=== PATIENT | male | born 1965 | race Caucasian/White ===

== ENCOUNTER → 2022-09-07 13:50 | Outpatient (BNVA) | payer MEDICAID, SELFPAY | PROVIDERS: Visit Provider Nurse Practitioner Family | DX: E11.9 Type 2 diabetes mellitus without complications (principal); I10 Essential (primary) hypertension | CPT/HCPCS: 80053; 80061; 82043; 83036; 84443; 85025 ==

== ENCOUNTER → 2023-04-27 11:01 | Outpatient (BNVA) | payer MEDICAID, SELFPAY | PROVIDERS: PCP Nurse Practitioner Family; Visit Provider Family Medicine | DX: C44.91 Basal cell carcinoma of skin, unspecified (principal); E11.9 Type 2 diabetes mellitus without complications; R19.4 Change in bowel habit | CPT/HCPCS: 83036; 87177; 87209 ==

== ENCOUNTER 2023-06-07 15:57 | Inpatient (IN) | payer MEDICAID, SELFPAY ==
[2023-06-07 16:13] VITALS: BP 160/100; RESP 18; TEMP 37.6; O2SAT 97
--- NOTE | 2023-06-07 16:19 | XRR_ITS ---
PROCEDURE INFORMATION: Exam: XR Right Foot Exam date and time: 06/07/2023 4:24 PM Age: 58 years old Clinical indication: Swelling, leg or foot; Additional info: Infection TECHNIQUE: Imaging protocol: Radiologic exam of the right foot. Views: 3 or more views. COMPARISON: No relevant prior studies available. FINDINGS: Bones/joints: Normal. Soft tissues: Soft tissue edema of the ankle. XR/XR foot RT min 3V* 20205 IMPRESSION: No acute abnormality.
--- NOTE | 2023-06-07 16:33 | ED_ITS ---
Documented by User: MIKE Gamboa 06/08/23 07:45 HPI - Extremity Problem General: Chief complaint: Extremity Injury, Lower Stated complaint: Infection Big Toe Time Seen by Provider: 06/07/23 16:04 History of Present Illness: Associated symptoms: Reports fever(s) (low grade- 99.7 upon arrival); Deny chest pain Review of Systems Const: Reports: fever(s) (low grade-99.7 upon arrival) and chills; Denies: body aches, fatigue or malaise Card: Denies: chest pain Resp: Denies: dyspnea GI: Denies: abdominal pain Musc: Reports: extremity pain (R great toe); Denies: neck pain, back pain, extremity swelling, joint pain or joint swelling Neuro: Reports: sensory changes (chronic LE diabetic neuropathy) COUNTS INCLUDE 234 BEDS AT THE [facility] ED PFSH: Medical History Basal cell carcinoma Blind duodenal loop syndrome BMI 27.0-27.9,adult Bowel habit changes Essential hypertension Impaired visual perception Surgical History History of bilateral cataract extraction left Family History Mother Stroke Diabetes Graves disease Arthritis Father No problems noted. Social History Smoking and tobacco status: never smoked Alcohol intake: current Alcohol intake frequency: holidays/special occasions only Alcohol type: wine Physical Exam Const: COMMON NORMALS: no acute distress, average body habitus, patient o riented x3, no limitations, alert and well nourished OTHER: low grade fevers Resp: COMMON NORMALS: normal respiratory effort and clear to auscultation bilaterally AUSCULTATION: clear to auscultation bilaterally Cardio: COMMON NORMALS: regular rate and regular rhythm RATE: regular rate RHYTHM: regular rhythm Extremity: GENERAL: Yes normal exam except as noted RIGHT LOWER EXTREMITY: Yes foot & digits OTHER: Patient has an extremely foul-smelling erythematous, edematous, necrotic right great toe with abscess formation involving the lateral aspect. There is surrounding cellulitis affecting the entire digit as well as the medial aspect of the dorsum of his foot. There is no lymphangitic streaking. Neuro: COMMON NORMALS: patient oriented x3, moves all extremities, no focal motor deficits and no sensory deficits noted SENSORIUM/ORIENTATION: Yes alert Course Consultations: Consultation #1: Dr. Multani-agrees with decision for hospitalization, IV antibiotics, and he will consult on patient Consultation #2: Dr. Barber-accepts patient for hospitalization Vital Signs: Vital signs: Vital Signs Temperature 98.6 F 06/08/23 03:26 Pulse Rate 82 06/08/23 05:10 Respiratory Rate 19 H 06/08/23 03:26 Blood Pressure 134/76 06/08/23 03:26 Pulse Oximetry 96 06/08/23 03:26 Oxygen Delivery Me thod Room Air 06/07/23 20:54 MDM - Extremity (Nontraumatic) Medical Decision Making Diabetic with gangrenous infection of right great toe with leukocytosis, low grade fever. 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 CRP >100. IV abx ordered. Foot xray ready by radiologist: NAD. Patient is a 58-year-old male who presents to ED today with a complaint of an infection to his right great toe that he began noticing a few days ago. He states the [place] recently [place]. On exam toe is extremely foul-smelling with gangrenous infection along with surrounding cellulitis. He arrives with a low-grade fever. White count is 15.9 with a significantly elevated CRP. XR of the foot was interpreted as normal. I spoke to Dr. Multani who graciously is going to consult on patient here in the emergency department with probable plan for OR tomorrow. Patient has been started on IV Vancomycin/Zosyn. Blood cultures obtained. I spoke to hospitalist Dr. Kerns who will admit. After Jerry will place admit orders. Lab Data 06/08/23 04:51 06/08/23 04:51 Radiology Impressions Foot X-Ray 06/07/23 16:19 IMPRESSION: No acute abnormality. Laboratory Results WBC 15.9 10^3/uL (4.0-10.0) H 06/07/23 16:27 RBC 3.25 10^6/uL (4.1-5.3) L 06/07/23 16:27 Hgb 9.6 g/dL (11.7-16.6) L 06/07/23 16:27 Hct 29.8 % (42.0-52.0) L 06/07/23 16:27 MCV 91.7 fl (80-94) 06/07/23 16:27 MCH 29.5 pg (28.0-34.0) 06/07/23 16: MCHC 32.2 g/dL (30.0-36.0) 06/07/23 16: RDW 12.9 % (12.1-15.1) 06/07/23 16:27 Plt Count 415 10^3/cmm (130-400) H 06/07/23 16:27 MPV 9.5 fL (7.4-10.4) 06/07/23 16: Neut % (Auto) 76.9 % 06/07/23 16:27 Lymph % (Auto) 12.6 % 06/07/23 16:27 Schley % (Auto) 7.2 % 06/07/23 16:27 Eos % (Auto) 1.9 % 06/07/23 16:27 Baso % (Auto) 0.6 % 06/07/23 16:27 Neut # (Auto) 12.27 10^3/uL (1.8-7.7) H 06/07/23 16:27 Lymph # (Auto) 2.0 10^3/uL (0.8-4.8) 06/07/23 16:27 Schley # (Auto) 1.1 10^3/uL (0.2-0.9) H 06/07/23 16:27 Eos # (Auto) 0.3 10^3/uL (0.0-0.8) 06/07/23 16:27 Baso # (Auto) 0.1 10^3/uL (0.0-0.1) 06/07/23 16: Nucleated RBC % (auto) 0 % 06/07/23 16: Nucleated RBCs # 0.0 /100WBC 06/07/23 16:27 ESR 19 mm/hr (0-10) H 06/07/23 16:27 Sodium 137 mmol/L (136-145) 06/07/23 16: Potassium 5.2 mmol/L (3.5-5.1) H 06/07/23 16:27 Chloride 99 mmol/L (98-107) 06/07/23 16:27 Carbon Dioxide 28 mmol/L (22-29) 06/07/23 16:27 Anion Gap 15.2 (5-19) 06/07/23 16:27 BUN 14 mg/dL (6-20) 06/07/23 16:27 Creatinine 1.1 mg/dL (0.7-1.2) 06/07/23 16:27 GFR Calculation 69.2 mL/min (90-130) L 06/07/23 16:27 Glucose 133 mg/dL (65-115) H 06/07/23 16:27 Calculated Osmolality 286 mOsm/kg (285-295) 06/07/23 16:27 Lactic Acid 0.8 mmol/L (0.5-2.2) 06/07/23 16:27 Calcium 8.5 mg/dL (8.5-10.5) 06/07/23 16:27 Iron 19 ug/dL (59-158) L 06/07/23 16:27 TIBC 232 mcg/dl 06/07/23 16:27 % Saturation 8.1 % (20-50) L 06/07/23 16:27 Unsat Iron Binding 213 ug/dL (112-347) 06/07/23 16:27 Total Bilirubin 0.2 mg/dL (0.15-1.2) 06/07/23 16:27 AST 24 U/L (0-40) 06/07/23 16:27 ALT 24 U/L (0-41) 06/07/23 16:27 Alkaline Phosphatase 116 U/L (40-130) 06/07/23 16:27 C-Reactive Protein 131.0 mg/L (0.0-4.9) H 06/07/23 16:27 Total Protein 6.6 g/dL (6.6-8.7) 06/07/23 16:27 Albumin 3.4 g/dL (3.5-5.2) L 06/07/23 16:27 Globulin 3.2 g/dL (1.3-4.6) 06/07/23 16:27 Vitamin B12 615 pg/mL (232-1245) 06/07/23 16:27 Procalcitonin 0.22 ng/mL (0-0.5) 06/07/23 16:27 TSH 1.31 uIU/mL (0.27-4.20) 06/07/23 16:27 Urine Color Light yellow (Yellow) 06/07/23 18:50 Urine Appearance Clear (CLEAR) 06/07/23 18:50 Urine pH 9 (5-7) H 06/07/23 18:50 Ur Specific [place] 1.015 (1.005-1.030) 06/07/23 18:50 Urine Protein 1+ (Negative) H 06/07/23 18:50 Urine Glucose (UA) Norm (Normal) 06/07/23 18:50 Urine Ketones Negative (Negative) 06/07/23 18:50 Urine Blood Neg (Negative) 06/07/23 18:50 Urine Nitrate Negative (Negative) 06/07/23 18:50 Urine Bilirubin Neg (Negative) 06/07/23 18:50 Prot Sulfosalicylic Acd Positive (Negative) 06/07/23 18:50 Urine Urobilinogen Neg mg/dL (Negative) 06/07/23 18:50 Ur Leukocyte Esterase Negative (Negative) 06/07/23 18:50 Urine RBC None /hpf (0-2) 06/07/23 18:50 Urine WBC None /hpf (0-5) 06/07/23 18:50 Ur Squamous Epith Cells None /hpf (0-5) 06/07/23 18:50 Amorphous Sediment Not Reportable 06/07/23 18:50 Urine Bacteria Trace /hpf (NONE) 06/07/23 18:50 Discharge Plan Discharge Patient Disposition: Admitted As Inpatient Admit Provider: Terence Novoa Clinical Impression: Gangrene of toe of right foot Condition: Stable Coding Level of Care Code 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 He has diabetes. He has recently been [place]. Pt has low grade fever on arrival. Associated symptoms: Reports rash Review of Systems General: Reports: 10 or more systems reviewed and unremarkable except in HPI and below Musc: Reports: extremity pain Skin/Breast: Reports: rash, erythema, skin swelling, sores, new lesions and changes in skin color PFSH ED PFSH: Medical History Basal cell carcinoma Blind duodenal loop syndrome BMI 27.0-27.9,adult Bowel habit changes Essential hypertension Impaired visual perception Surgical History History of bilateral cataract extraction left Family History Mother Stroke Diabetes Graves disease Arthritis Father No problems noted. Social History Smoking and tobacco status: never smoked Alcohol intake: current Alcohol intake frequency: holidays/special occasions on ly Alcohol type: wine Course Vital Signs: Vital signs: Vital Signs Temperature 98.6 F 06/08/23 03:26 Pulse Rate 82 06/08/23 05:10 Respiratory Rate 19 H 06/08/23 03:26 Blood Pressure 134/76 06/08/23 03:26 Pulse Oximetry 96 06/08/23 03:26 Oxygen Delivery Me thod Room Air 06/07/23 20:54 MDM - Extremity (Nontraumatic) Medical Decision Making Diabetic with gangrenous infection of right great toe with leukocytosis, low grade fever. 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 CRP >100. IV abx ordered. Foot xray ready by radiologist: RAJESH. Lab Data 06/08/23 04:51 06/08/23 04:51 Radiology Impressions Foot X-Ray 06/07/23 16:19 IMPRESSION: No acute abnormality. Laboratory Results WBC 15.9 10^3/uL (4.0-10.0) H 06/07/23 16:27 RBC 3.25 10^6/uL (4.1-5.3) L 06/07/23 16:27 Hgb 9.6 g/dL (11.7-16.6) L 06/07/23 16:27 Hct 29.8 % (42.0-52.0) L 06/07/23 16:27 MCV 91.7 fl (80-94) 06/07/23 16:27 MCH 29.5 pg (28.0-34.0) 06/07/23 16:27 MCHC 32.2 g/dL (30.0-36.0) 06/07/23 16:27 RDW 12.9 % (12.1-15.1) 06/07/23 16:27 Plt Count 415 10^3/cmm (130-400) H 06/07/23 16:27 MPV 9.5 fL (7.4-10.4) 06/07/23 16:27 Neut % (Auto) 76.9 % 06/07/23 16:27 Lymph % (Auto) 12.6 % 06/07/23 16:27 Schley % (Auto) 7.2 % 06/07/23 16:27 Eos % (Auto) 1.9 % 06/07/23 16:27 Baso % (Auto) 0.6 % 06/07/23 16:27 Neut # (Auto) 12.27 10^3/uL (1.8-7.7) H 06/07/23 16:27 Lymph # (Auto) 2.0 10^3/uL (0.8-4.8) 06/07/23 16:27 Schley # (Auto) 1.1 10^3/uL (0.2-0.9) H 06/07/23 16:27 Eos # (Auto) 0.3 10^3/uL (0.0-0.8) 06/07/23 16:27 Baso # (Auto) 0.1 10^3/uL (0.0-0.1) 06/07/23 16:27 Nucleated RBC % (auto) 0 % 06/07/23 16: Nucleated RBCs # 0.0 /100WBC 06/07/23 16:27 ESR 19 mm/hr (0-10) H 06/07/23 16:27 Sodium 137 mmol/L (136-145) 06/07/23 16:27 Potassium 5.2 mmol/L (3.5-5.1) H 06/07/23 16:27 Chloride 99 mmol/L (98-107) 06/07/23 16:27 Carbon Dioxide 28 mmol/L (22-29) 06/07/23 16:27 Anion Gap 15.2 (5-19) 06/07/23 16:27 BUN 14 mg/dL (6-20) 06/07/23 16:27 Creatinine 1.1 mg/dL (0.7-1.2) 06/07/23 16:27 GFR Calculation 69.2 mL/min (90-130) L 06/07/23 16:27 Glucose 133 mg/dL (65-115) H 06/07/23 16:27 Calculated Osmolality 286 mOsm/kg (285-295) 06/07/23 16:27 Lactic Acid 0.8 mmol/L (0.5-2.2) 06/07/23 16:27 Calcium 8.5 mg/dL (8.5-10.5) 06/07/23 16:27 Iron 19 ug/dL (59-158) L 06/07/23 16:27 TIBC 232 mcg/dl 06/07/23 16:27 % Saturation 8.1 % (20-50) L 06/07/23 16:27 Unsat Iron Binding 213 ug/dL (112-347) 06/07/23 16:27 Total Bilirubin 0.2 mg/dL (0.15-1.2) 06/07/23 16:27 AST 24 U/L (0-40) 06/07/23 16:27 ALT 24 U/L (0-41) 06/07/23 16:27 Alkaline Phosphatase 116 U/L (40-130) 06/07/23 16:27 C-Reactive Protein 131.0 mg/L (0.0-4.9) H 06/07/23 16:27 Total Protein 6.6 g/dL (6.6-8.7) 06/07/23 16:27 Albumin 3.4 g/dL (3.5-5.2) L 06/07/23 16:27 Globulin 3.2 g/dL (1.3-4.6) 06/07/23 16:27 Vitamin B12 615 pg/mL (232-1245) 06/07/23 16:27 Procalcitonin 0.22 ng/mL (0-0.5) 06/07/23 16:27 TSH 1.31 uIU/mL (0.27-4.20) 06/07/23 16:27 Urine Color Light yellow (Yellow) 06/07/23 18:50 Urine Appearance Clear (CLEAR) 06/07/23 18:50 Urine pH 9 (5-7) H 06/07/23 18:50 Ur Specific [place] 1.015 (1.005-1.030) 06/07/23 18:50 Urine Protein 1+ (Negative) H 06/07/23 18:50 Urine Glucose (UA) Norm (Normal) 06/07/23 18:50 Urine Ketones Negative (Negative) 06/07/23 18:50 Urine Blood Neg (Negative) 06/07/23 18:50 Urine Nitrate Negative (Negative) 06/07/23 18:50 Urine Bilirubin Neg (Negative) 06/07/23 18:50 Prot Sulfosalicylic Acd Positive (Negative) 06/07/23 18:50 Urine Urobilinogen Neg mg/dL (Negative) 06/07/23 18:50 Ur Leukocyte Esterase Negative (Negative) 06/07/23 18:50 Urine RBC None /hpf (0-2) 06/07/23 18:50 Urine WBC None /hpf (0-5) 06/07/23 18:50 Ur Squamous Epith Cells None /hpf (0-5) 06/07/23 18:50 Amorphous Sediment Not Reportable 06/07/23 18:50 Urine Bacteria Trace /hpf (NONE) 06/07/23 18:50 Discharge Plan Discharge Patient Disposition: Admitted As Inpatient Admit Provider: Terence Novoa Clinical Impression: Gangrene of toe of right foot Condition: Stable Coding Level of 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
[2023-06-07 16:43] LABS: Basophils # 0.1 10^3/uL (0.0-0.1); Basophils % 0.6 %; Eosinophils # 0.3 10^3/uL (0.0-0.8); Eosinophils % 1.9 %; Hematocrit 29.8 % (42.0-52.0); Hemoglobin 9.6 g/dL (11.7-16.6); Lymphocytes % 12.6 %; Mean Corpuscular HGB Conc 32.2 g/dL (30.0-36.0); Mean Corpuscular Hemoglobin 29.5 pg (28.0-34.0); Mean Corpuscular Volume 91.7 fl (80-94); Mean Platelet Volume 9.5 fL (7.4-10.4); Monocytes # 1.1 10^3/uL (0.2-0.9); Monocytes % 7.2 %; Neutrophils # 12.27 10^3/uL (1.8-7.7); Neutrophils % 76.9 %; Nucleated Red Blood Cells % 0 %; Platelet Count 415 10^3/cmm (130-400); Red Blood Count 3.25 10^6/uL (4.1-5.3); Red Cell Distribution Width 12.9 % (12.1-15.1); White Blood Count 15.9 10^3/uL (4.0-10.0)
[2023-06-07 16:51] LABS: Erythrocyte Sedimentation Rate 19 mm/hr (0-10)
[2023-06-07 16:57] LABS: Lactic Sepsis W/Reflex 0.8 mmol/L (0.5-2.2)
[2023-06-07 16:58] LABS: Alanine Aminotransferase 24 U/L (0-41); Albumin Level 3.4 g/dL (3.5-5.2); Alkaline Phosphatase 116 U/L (40-130); Anion Gap 15.2 (5-19); Aspartate Amino Transferase 24 U/L (0-40); Blood Urea Nitrogen 14 mg/dL (6-20); Calcium 8.5 mg/dL (8.5-10.5); Carbon Dioxide 28 mmol/L (22-29); Chloride 99 mmol/L (98-107); Globulin 3.2 g/dL (1.3-4.6); Glomerular Filtration Rate 69.2 mL/min (90-130); Glucose 133 mg/dL (65-115); Osmolality Calculated 286 mOsm/kg (285-295); Potassium 5.2 mmol/L (3.5-5.1); Sodium 137 mmol/L (136-145); Total Bilirubin 0.2 mg/dL (0.15-1.2); Total Protein 6.6 g/dL (6.6-8.7)
[2023-06-07] MEDS: piperacillin-tazobactam 3.375 GM in sodium chloride 0.9% (plus) 50 ML IV ×2 (17:18→22:29)
--- NOTE | 2023-06-07 17:24 | P.HP_ITS ---
Providers/Chief Complaint Primary Care Provider: Sagrario Diaz NP Chief Complaint: Infection Big Toe History of Present Illness Joseph Baker is a 58 year old male with past medical history of hypertension, type 2 diabetes mellitus was sent in through the primary care's office because of swelling and pain in the right foot for last 1 week to 10 days mostly in the right great toe. Patient thinks it infection started when he was [place] that time and has been getting worse. He has been using castor oil at home. Nail came off yesterday. As the pain was getting worse and the toe was turning black he presented to the ER. Patient has been having subjective low- grade fever fevers at home. Denies any nausea vomiting, headache, dizziness. In the ER patient was given 1 dose of vancomycin and Zosyn after blood cultures were taken, foot x-ray was done and podiatry was consulted from the ER Review of Systems General: Reports: 10 or more systems reviewed and unremarkable except in HPI and below Const: Denies: fever(s), chills, body aches, change in appetite, change in weight, malaise, night sweats, diaphoresis, change in sleep pattern, daytime sleepiness or snoring Eyes: Denies: change in vision, blurry vision, photophobia, eye discomfort or eye discharge ENMT: Denies: throat pain, enlarged tonsils, hoarseness, mouth pain, oral sores, dry mouth, tinnitus, nasal congestion or post nasal drip Card: Denies: chest pain, palpitations, irregular heart rhythm, edema, swelling of feet/ankles, lightheadedness, syncope, pre-syncope, dyspnea on exertion, orthopnea, leg pain with exertion or acrocyanosis Resp: Denies: dyspnea, productive cough, non-productive cough, wheezing, stridor, pain on inspiration, change in phlegm color, hemoptysis or chest congestion GI: Denies: abdominal pain, nausea, vomiting, hematemesis, coffee ground emesis, dysphagia, heartburn, diarrhea, constipation, bloating, GI cramping, change in bowel habits, pain on defecation, hematochezia or melena : Denies: flank pain, difficulty urinating, dysuria, urinary frequency, urinary urgency, urinary hesitancy, urinary dribbling, difficulty starting urination, change in urine stream, nocturia or hematuria Musc: Denies: neck pain, back pain, extremity pain, joint pain, joint swelling, joint redness, joint stiffness or limited range of motion Neuro: Denies: headache(s), numbness in extremities, weakness in extremities, sensory changes, lack of coordination, difficulty walking, frequent falls, dizziness, vertigo, confusion, Slurred speech present, difficulty communicating thoughts or seizure-like activity Psych: Denies: anxiety, depression, mood swings, panic attacks, hopelessness or irritability Endo: Denies: polyuria, polydipsia, tired all the time, cold intolerance, excessive sweating, flushing or heat intolerance Rafael/Lymph: Denies: easy bruising or easy bleeding All/Imm: Denies: tongue swelling, facial swelling or acute wheezing Medications/Allergies Home Medications Medication Instructions Recorded Confirmed Last Taken Type blood sugar diagnostic (Blood #300 ea 09/15/22 06/08/23 Unknown Rx Glucose Test strips) blood-glucose meter (Blood Glucose #1 ea 09/15/22 06/08/23 Unknown Rx Monitoring kit) lisinopril 40 mg tablet 40 mg PO DAILY #90 tabs 02/23/23 06/08/23 Unknown Rx metformin 1,000 mg tablet 1,000 mg PO BID #180 tabs 02/23/23 06/08/23 Unknown Rx glyburide 5 mg tablet 10 mg PO DAILY #180 tabs 02/24/23 06/08/23 Unknown Rx atorvastatin 40 mg tablet 40 mg PO DAILY #90 tabs 04/27/23 06/08/23 Unknown Rx ferrous sulfate 325 mg (65 mg 325 mg PO DAILY #30 tabs 04/27/23 06/08/23 Unknown Rx iron) tablet flash glucose scanning reader #1 ea 04/27/23 06/08/23 Unknown Rx (FreeStyle Kee 2 Wood) flash glucose sensor (FreeStyle #1 ea 04/27/23 06/08/23 Unknown Rx Kee 2 Sensor kit) lancets 30 gauge #300 ea 04/27/23 06/08/23 Unknown Rx insulin glargine 100 unit/mL (3 24 unit SUBCUT .QAM 06/08/23 06/08/23 Unknown History mL) subcutaneous pen (Lantus Solostar U-100 Insulin) triamterene 37.5 1 cap PO QDAY 06/08/23 06/08/23 Unknown History mg-hydrochlorothiazide 25 mg capsule Allergies Allergy/AdvReac Type Severity Reaction Status Date / Time No Known Allergies Allergy Unverified 06/07/23 10:04 PFSH Acute PFSH: Medical History Basal cell carcinoma Blind duodenal loop syndrome BMI 27.0-27.9,adult Bowel habit changes Essential hypertension Impaired visual perception Surgical History (Reviewed 06/08/23 @ 07: by MIKE Gamboa) History of bilateral cataract extraction left Family History Mother Stroke Diabetes Graves disease Arthritis Father No problems noted. Social History (Reviewed 06/08/23 @ 07: by MIKE Gamboa) Smoking and tobacco status: never smoked Alcohol intake: current Alcohol intake frequency: holidays/special occasions only Alcohol type: wine Vitals/I&O/Wt Last Vital Signs Temp 99.7 F H 06/07/23 16:13 Resp 18 06/07/23 16:13 BP 160/100 06/07/23 16:13 Pulse Ox 97 06/07/23 16:13 O2 Del Method Room Air 06/07/23 16:13 Weight last 48 hrs Weight 79.379 kg Physical Exam Narrative: General: No acute distress, AO x3 HEENT: PERRLA, pupils bilaterally equal and reactive Chest: Normal vesicular breath sounds, no added sounds, equal good air entry bilaterally CVS: S1-S2 regular, no murmurs, no tachycardia, no gallops, no rubs Abdomen: Soft, nontender, no organomegaly, bowel sounds present Neuro: No focal deficits, no facial deformity, AO x3, power 5/5 in all limbs Data 06/08/23 04:51 06/08/23 04:51 Micro: Microbiology 06/07/23 16:57 Blood Culture - Preliminary Blood SPECIMEN COLLECTED 06/07/23 16:57 Blood Culture - Preliminary Blood SPECIMEN COLLECTED A&P Assessment and plan (1) Gangrene of toe of right foot: With concerns for osteomyelitis. X-ray done in the ER. Podiatry consulted in the ER. Elevated ESR and CRP. Blood cultures done in the ER. MRI right foot. Empiric vancomycin and Zosyn for now. Follow-up OR cultures. Morphine 1 mg 4 hours as needed for pain, tramadol 50 mg every 6 hourly as needed for pain. (2) Type 2 diabetes mellitus: Recent A1c 6.7. Insulin sliding scale at moderate dose protocol. (3) Essential hypertension: Goal blood pressure less than 140/90 mmHg. Takes lisinopril, triamterene and hydrochlorothiazide at home. Hold off on triamterene hydrochlorothiazide combination for now. Continue with lisinopril. Uptitrate as for goal blood pressures. Plan Cardiac carb consistent diet, n.p.o. after midnight for possible procedure. SCDs for DVT prophylaxis Famotidine for PUD prophylaxis. Attestations Medical Necessity Statement*: Admission for more than 2 midnights for management of cellulitis of right great toe with high concerns for osteomyelitis requiring surgical debridement Diagnoses Gangrene of toe of right foot I96 Type 2 diabetes mellitus E11.9 Essential hypertension I10
[2023-06-07] MEDS: vancomycin 1,000 MG in sodium chloride 0.9% 250 ML 250 MG IV (17:54)
[2023-06-07] MEDS: enoxaparin 40 mg/0.4 mL Syringe SUBCUT (18:06)
[2023-06-07 18:14] LABS: Procalcitonin 0.22 ng/mL (0-0.5); Thyroid Stimulating Hormone 1.31 uIU/mL (0.27-4.20); Vitamin B12 615 pg/mL (232-1245)
[2023-06-07 18:25] LABS: Iron 19 ug/dL (59-158); Percent Saturation 8.1 % (20-50); Total Iron Binding Capacity 232 mcg/dl; Unsaturated Iron Binding 213 ug/dL (112-347)
[2023-06-07 19:37] VITALS: BP 155/87; PULSE 85; RESP 16; O2SAT 99
[2023-06-07 19:45] VITALS: BP 181/102; PULSE 86; RESP 17; TEMP 37.6; O2SAT 99
[2023-06-07] MEDS: sodium chloride 0.9% 1,000 ML 75 ML IV (20:23)
[2023-06-07 20:33] LABS: Add Urine Microscopic? YES; Bilirubin Urine Neg (Negative); Blood Urine Neg (Negative); Glucose Urine UA Norm (Normal); Ketones Urine Negative (Negative); Leukocyte Esterase Urine Negative (Negative); Nitrate Urine Negative (Negative); Protein Urine 1+ (Negative); Specific Gravity, Urine 1.015 (1.005-1.030); Sulfosalicylic Acid Urine Positive (Negative); Urine Appearance Clear (CLEAR); Urine Color Light yellow (Yellow); Urobilinogen Urine Neg (Negative); pH Urine 9 (5-7)
[2023-06-07 20:34] LABS: Add Urine Culture? No; Bacteria Urine TRACE /hpf
--- NOTE | 2023-06-07 20:34 | PC.PHAR ---
[id number] VANC - Pt diagnosis gangrene with concern for osteo. Pt received 1,000 mg in er. Ordered 500 mg catch up dose then 1,500 mg q18h. Trough due before 4th dose 06/09 - 2299
[2023-06-07] MEDS: vancomycin 500 MG in sodium chloride 0.9% (plus) 100 ML 200 MG IV (20:43)
--- NOTE | 2023-06-07 21:19 | P.CONIM_ITS ---
Providers/Reason For Consult Consulting Physician/Specialty*: cR Angeles.P.M./podiatry Reason for Consult*: Right hallux gangrene Attending Physician: Terence Novoa MD Primary Care Provider: Sagrario Diaz NP History of Present Illness History of Present Illness Joseph Baker is a 58 year old male with history of type 2 diabetes who presented to the emergency department today after being evaluated by his primary care provider earlier today. According to the patient he has had a wound on the right great toe for the past couple weeks. Patient states that over the course the past 3 days it has significantly worsened and changed in color. It has become odorous and he has began to have systemic manifestations such as fever, chills, nausea. Patient states he has been using castor oil at home to try and treat the area. He states that he was not in his right mind so he began taking his salt which brought him to his normal faculties to the point that he brought himself to be evaluated. Podiatry was consulted to evaluate the patient and to provide further recommendations for treatment. Patient has not been established with a podiatric provider up to this point. Review of Systems General: Reports: 10 or more systems reviewed and unremarkable except in HPI and below Const: Denies: fever(s), chills, body aches or change in appetite Eyes: Denies: change in vision or blurry vision Card: Denies: chest pain, palpitations or irregular heart rhythm Resp: Denies: dyspnea GI: Denies: abdominal pain, nausea, vomiting or diarrhea Musc: Reports: joint stiffness Skin/Breast: Reports: non-healing lesions and lesions Neuro: Reports: numbness in extremities Medications/Allergies Home Medications Medication Instructions Recorded Confirmed Last Taken Type blood sugar diagnostic (Blood #300 ea 09/15/22 06/07/23 Unknown Rx Glucose Test strips) blood-glucose meter (Blood Glucose #1 ea 09/15/22 06/07/23 Unknown Rx Monitoring kit) lisinopril 40 mg tablet 40 mg PO DAILY #90 tabs 02/23/23 06/07/23 Unknown Rx metformin 1,000 mg tablet 1,000 mg PO BID #180 tabs 02/23/23 06/07/23 Unknown Rx glyburide 5 mg tablet 10 mg PO DAILY #180 tabs 02/24/23 06/07/23 Unknown Rx atorvastatin 40 mg tablet 40 mg PO DAILY #90 tabs 04/27/23 06/07/23 Unknown Rx ferrous sulfate 325 mg (65 mg 325 mg PO DAILY #30 tabs 04/27/23 06/07/23 Unknown Rx iron) tablet flash glucose scanning reader #1 ea 04/27/23 06/07/23 Unknown Rx (FreeStyle Kee 2 [place]) flash glucose sensor (FreeStyle #1 ea 04/27/23 06/07/23 Unknown Rx Kee 2 Sensor kit) insulin glargine 100 unit/mL (3 24 unit (0.24 mL) SUBCUT QAM #15 mL 04/27/23 06/07/23 Unknown Rx mL) subcutaneous pen (Basaglar KwikPen U-100 Insulin) lancets 30 gauge #300 ea 04/27/23 06/07/23 Unknown Rx triamterene 37.5 See Rx Instructions PO QDAY #90 05/11/23 06/07/23 Unknown Rx mg-hydrochlorothiazide 25 mg caps capsule Allergies Allergy/AdvReac Type Severity Reaction Status Date / Time No Known Allergies Allergy Unverified 06/07/23 10:04 Current Medications Generic Name Dose Route Start Last Admin Trade Name Freq PRN Reason Stop Dose Admin Sodium Chloride 1,000 mls @ 75 mls/hr 06/07/23 19:22 06/07/23 20:23 Sodium Chloride 0.9% IV 75 mls/hr .[id number] EVELIO Administration PFSH Acute PFSH: Medical History (Updated 06/07/23 @ 17:27 by Terence Novoa MD) Basal cell carcinoma Blind duodenal loop syndrome BMI 27.0-27.9,adult Bowel habit changes Essential hypertension Impaired visual perception Surgical History (Updated 06/07/23 @ 17:27 by Terence Novoa MD) History of bilateral cataract extraction left Family History Mother Stroke Diabetes Graves disease Arthritis Father No problems noted. Social History Smoking and tobacco status: never smoked Alcohol intake: current Alcohol intake frequency: holidays/special occasions only Alcohol type: wine Vitals/I&O/Wt Last Vital Signs Temp 99.6 F 06/07/23 19:45 Pulse 86 06/07/23 19:45 Resp 17 06/07/23 19:45 BP 181/102 06/07/23 19:45 Pulse Ox 99 06/07/23 19:45 O2 Del Method Room Air 06/07/23 20:54 06/07/23 06/07/23 06/07/23 06:59 14:59 22:59 Intake Total 300 / 300 Balance 300 / 300 Weight last 48 hrs Weight 175 lb Physical Exam Narrative: BELOW IS A FOCUSED LOWER EXTREMITY EXAM GENERAL: A&O x 3 VASCULAR: DP/PT pulses diminished +1 with delayed CFT. Marked edema to right foot stemming from right hallux infection DERMATOLOGICAL: Right hallux erythematous with black necrotic Distally extending proximally into the subungual region with surrounding cellulitis active purulent drainage and necrosis extending along the lateral aspect of the hallux with hemorrhagic manifestations of bacterial endotoxin soft tissue damage and maceration. Plantar right hallux has hyperkeratotic tissue overlying ulcerative lesion. Erythema extends proximally to enveloped the adjacent metatarsophalangeal joints to the level of the metatarsal necks. The hallux is malodorous. MUSCULOSKELETAL: Tenderness with palpation of right hallux NEUROLOGICAL: Neurological sensation to the affected foot and ankle is diminished through L4-S1 dermatomes via 10g SWMF, diminished sensation extends proximally to the level of the midfoot IMAGING: Three-view x-rays of the right foot taken in the emergency department personally interpreted by me which show increase soft tissue density about the hallux. No subcutaneous emphysema noted. No pathologic fractures Data 06/07/23 16:27 06/07/23 16:27 Micro: Microbiology 06/07/23 16:57 Blood Culture - Preliminary Blood SPECIMEN COLLECTED 06/07/23 16:57 Blood Culture - Preliminary Blood SPECIMEN COLLECTED A&P Assessment and plan (1) Gangrene of toe of right foot: (2) Gangrene associated with type II diabetes mellitus: (3) Type 2 diabetes mellitus: Plan LABS AND CLINICAL INFO: WBC 15.9 ESR 19 CRP 131 T99.7 RR 18 HR 86 ABX: Vanco/Zosyn Blood cultures: Pending PLAN: -N.p.o. at midnight for procedure tomorrow 06/08/2023 -Patient to undergo right hallux amputation tomorrow a.m. Discussed with the patient that he has wet gangrene to the right hallux which is causing systemic manifestations such as fever, chills, nausea. Patient is at risk of the infection spreading more proximally which would ultimately lead to a more exten sive incision and debridement and possible amputation. Right hallux amputation this for source control. Patient verbalized understanding to this. -Continue empiric antibiotics -Trend labs -Weightbearing: Weightbearing to right foot for transfers only -Discharge plan: To be determined. Intraoperative findings will determine IV versus p.o. antibiotic therapy. I will discuss this with hospitalist after surgery tomorrow Coding Level of Care Code Acute Code for [facility] Diagnoses Gangrene of toe of right foot I96 Gangrene associated with type II diabetes mellitus E11.52 Type 2 diabetes mellitus E11.9
[2023-06-07 21:30] LABS: Glucose Point of Care 119 mg/dL (70-110)
[2023-06-07 22:00] VITALS: PULSE 80
[2023-06-07 23:57] VITALS: BP 130/75; PULSE 85; RESP 18; TEMP 36.7; O2SAT 95
[2023-06-08] VITALS (16 sets, daily range): BP systolic 117–190; BP diastolic 44–99; PULSE 74–113; RESP 14–20; TEMP 36.1–37; O2SAT 93–100; BMI 31.7
[2023-06-08] MEDS: piperacillin-tazobactam 3.375 GM in sodium chloride 0.9% (plus) 50 ML IV ×3 (05:35→21:46)
[2023-06-08 05:52] LABS: Basophils # 0.1 10^3/uL (0.0-0.1); Eosinophils # 0.5 10^3/uL (0.0-0.8); Eosinophils % 3.2 %; Hematocrit 26.7 % (42.0-52.0); Hemoglobin 8.7 g/dL (11.7-16.6); Lymphocytes # 2.8 10^3/uL (0.8-4.8); Lymphocytes % 19.8 %; Mean Corpuscular HGB Conc 32.6 g/dL (30.0-36.0); Mean Corpuscular Hemoglobin 30.1 pg (28.0-34.0); Mean Corpuscular Volume 92.4 fl (80-94); Mean Platelet Volume 9.8 fL (7.4-10.4); Monocytes # 1.1 10^3/uL (0.2-0.9); Monocytes % 7.9 %; Neutrophils # 9.49 10^3/uL (1.8-7.7); Neutrophils % 67.1 %; Nucleated Red Blood Cells % 0 %; Platelet Count 419 10^3/cmm (130-400); Red Blood Count 2.89 10^6/uL (4.1-5.3); Red Cell Distribution Width 12.9 % (12.1-15.1); White Blood Count 14.1 10^3/uL (4.0-10.0)
[2023-06-08 06:13] LABS: Chol HDL Ratio 7.04 mg/dL (1.0-5.00); Cholesterol 162 mg/dL (0-200); HDL Cholesterol 23 mg/dL (60-100); LDL Cholesterol Calculated 104 mg/dL (50-129); LDL HDL Ratio 4.52 RATIO (0.00-3.22); Triglycerides 173 mg/dL (0-150)
[2023-06-08 06:15] LABS: Alanine Aminotransferase 19 U/L (0-41); Alkaline Phosphatase 111 U/L (40-130); Anion Gap 13.5 (5-19); Aspartate Amino Transferase 25 U/L (0-40); Blood Urea Nitrogen 12 mg/dL (6-20); Carbon Dioxide 27 mmol/L (22-29); Chloride 100 mmol/L (98-107); Globulin 3.6 g/dL (1.3-4.6); Glomerular Filtration Rate 69.2 mL/min (90-130); Glucose 159 mg/dL (65-115); Magnesium 2.1 mg/dL (1.7-2.3); Osmolality Calculated 285 mOsm/kg (285-295); Phosphorus 3.6 mg/dL (2.5-4.5); Potassium 4.5 mmol/L (3.5-5.1); Sodium 136 mmol/L (136-145); Total Bilirubin 0.2 mg/dL (0.15-1.2); Total Protein 6.6 g/dL (6.6-8.7)
[2023-06-08 06:28] LABS: Folate Level 12.7 ng/mL (4.5-32.2)
[2023-06-08 06:32] LABS: Estmated Average Glucose 154
[2023-06-08 06:51] LABS: Glucose Point of Care 152 mg/dL (70-110)
--- NOTE | 2023-06-08 07:00 | MR_ITS ---
WS: [id number] MRI RIGHT FOOT WITHOUT CONTRAST. COMPARISON: Radiographs 06/07/2023 Multiplanar, multisequence imaging is performed without contrast. There is a large amount of soft tissue edema surrounding the first phalanx. There is edema within the head of the first proximal phalanx and throughout the entire distal phalanx. There is soft tissue ed ronaldo which extends predominantly along the plantar surface but also circumferentially around the first toe. Edema extends from the subcutaneous soft tissue to the cortex and centered at the IP joint. [place] of the normal cortex of the distal phalanx. There is no focal well-formed clue collection. No addit ional abnormalities. IMPRESSION: 1. Extensive soft tissue edema surrounding the first toe. Edema extends circumferentially around the first toe. 2. Marrow edema with loss of the normal cortex involving the distal phalanx. 3. No soft tissue abscess. Cannot exclude osteomyelitis without IV contrast.
--- NOTE | 2023-06-08 08:04 | P.ANESASSM_ITS ---
Pre-Anesthetic Assessment Height/Weight: Height 1.63 m Weight 79.379 kg Temp Pulse Resp BP Pulse Ox O2 Del Method 98.6 F 82 19 H 134/76 96 Room Air 06/08/23 03:06/08/23 05:10 06/08/23 03:06/08/23 03:06/08/23 03:06/07/23 20:54 Operation Date: 06/08/23 08:05 Proposed Procedures p Amputation Toe/s Hallux Amputation(Right) - Jamil Multani DPM Familial anesthetic complications: None Was Beta Ari taken within 24 hours: N/A Was Clonidine taken within 24 hours: N/A Last intake: Intake Last Liquid Date 06/07/23 Last Liquid Time 21:00 Last Solid Date 06/07/23 Last Solid Time 21:00 Social No alcohol and No tobacco Exam alert, oriented x 3, clear to auscultation bilaterally and regular rate & rhythm Airway Mallampati: Class II Dentition: full CV/HEM Hypertension Metabolic Diabetes Mellitus and Hyperlipidemia Anesthetic Plan ASA status: 3 Anesthesia: Choice Other: Patient prefers MAC since he has little sensation in foot Risk of > 500 ml blood loss (7ml/kg in children): No Medications/Allergies Home Medications Medication Instructions Recorded Confirmed Last Taken Type blood sugar diagnostic (Blood #300 09/15/22 06/07/23 Unknown Rx Glucose Test strips) blood-glucose meter (Blood Glucose #1 09/15/22 06/07/23 Unknown Rx Monitoring kit) lisinopril 40 mg tablet 40 mg PO DAILY #90 tabs 02/23/23 06/07/23 Unknown Rx metformin 1,000 mg tablet 1,000 mg PO BID #180 tabs 02/23/23 06/07/23 Unknown Rx glyburide 5 mg tablet 10 mg PO DAILY #180 tabs 02/24/23 06/07/23 Unknown Rx atorvastatin 40 mg tablet 40 mg PO DAILY #90 tabs 04/27/23 06/07/23 Unknown Rx ferrous sulfate 325 mg (65 mg 325 mg PO DAILY #30 tabs 04/27/23 06/07/23 Unknown Rx iron) tablet flash glucose scanning reader #1 04/27/23 06/07/23 Unknown Rx (FreeStyle Kee 2 [place]) flash glucose sensor (FreeStyle #1 04/27/23 06/07/23 Unknown Rx Kee 2 Sensor kit) insulin glargine 100 unit/mL (3 24 unit (0.24 mL) SUBCUT QAM #15 mL 04/27/23 06/07/23 Unknown Rx mL) subcutaneous pen (Basaglar KwikPen U-100 Insulin) lancets 30 gauge #300 ea 04/27/23 06/07/23 Unknown Rx triamterene 37.5 See Rx Instructions PO QDAY #90 05/11/23 06/07/23 Unknown Rx mg-hydrochlorothiazide 25 mg caps capsule Allergies Allergy/AdvReac Type Severity Reaction Status Date / Time No Known Allergies Allergy Unverified 06/07/23 10:04 Current Medications Generic Name Dose Route Start Last Admin Trade Name Freq PRN Reason Stop Dose Admin Piperacillin Sod/Tazobactam 50 mls @ 12.5 mls/hr 06/07/23 22:30 06/08/23 05:35 Sod 3.375 gm/ Sodium Chloride IV 12.5 mls/hr Q8H EVELIO Administration Sodium Chloride 1,000 mls @ 75 mls/hr 06/07/23 19:22 06/07/23 20:23 Sodium Chloride 0.9% IV 75 mls/hr .[id number] EVELIO Administration Insulin Glargine 24 unit 06/08/23 06:00 06/08/23 05:35 Insulin Glargine 100 Units/1 Ml SUBCUT Not Given QAM EVELIO Insulin Human Lispro 0 unit 06/07/23 19:22 06/07/23 21:26 Insulin Lispro 100 Unit/1 Ml SUBCUT Not Given WM&BEDTIME EVELIO Protocol [facility] Anesthesia Medical History Basal cell carcinoma Blind duodenal loop syndrome BMI 27.0-27.9,adult Bowel habit changes Essential hypertension Impaired visual perception Surgical History History of bilateral cataract extraction left Family History Mother Stroke Diabetes Graves disease Arthritis Father No problems noted. Social History Smoking and tobacco status: never smoked Alcohol intake: current Alcohol intake frequency: holidays/special occasions only Alcohol type: wine Data Anesthesia 06/08/23 04:51 06/08/23 04:51 Short CBC 06/07/23 06/08/23 Range/Units 16:27 04:51 WBC 15.9 H 14.1 H (4.0-10.0) 10^3/uL Hgb 9.6 L 8.7 L (11.7-16.6) g/dL Hct 29.8 L 26.7 L (42.0-52.0) % MCV 91.7 92.4 (80-94) fl Plt Count 415 H 419 H (130-400) 10^3/cmm Neut % (Auto) 76.9 67.1 % Neut # (Auto) 12.27 H 9.49 H (1.8-7.7) 10^3/uL BMP 06/07/23 06/08/23 16:27 04:51 Sodium 137 136 Potassium 5.2 H 4.5 Chloride 99 100 Carbon Dioxide 28 27 BUN 14 12 Creatinine 1.1 1.1 Glucose 133 H 159 H Calcium 8.5 8.0 L Liver Function 06/07/23 06/08/23 Range/Units 16:27 04:51 Total Bilirubin 0.2 0.2 (0.15-1.2) mg/dL AST 24 25 (0-40) U/L ALT 24 19 (0-41) U/L Alkaline Phosphatase 116 111 (40-130) U/L Albumin 3.4 L 3.0 L (3.5-5.2) g/dL Urine 06/07/23 Range/Units 18:50 Urine Color Light yellow (Yellow) Urine Appearance Clear (CLEAR) Urine pH 9 H (5-7) Ur Specific [place] 1.015 (1.005-1.030) Urine Protein 1+ H (Negative) Urine Glucose (UA) Norm (Normal) Urine Ketones Negative (Negative) Urine Nitrate Negative (Negative) Urine Bilirubin Neg (Negative) Ur Leukocyte Esterase Negative (Negative) Urine RBC None (0-2) /hpf Urine WBC None (0-5) /hpf Coags 06/07/23 06/07/23 16:27 16:27 ESR 19 H C-Reactive Protein 131.0 H Microbiology 06/07/23 16:57 Blood Culture - Preliminary Blood SPECIMEN COLLECTED 06/07/23 16:57 Blood Culture - Preliminary Blood SPECIMEN COLLECTED Cardiac Studies: No Data to Display
--- NOTE | 2023-06-08 08:08 | W.PM.OPSUD ---
Surgery/Procedure H&P Update DATE OF PROCEDURE: June 08, 2023 DATE H&P PERFORMED: 06/07/23 CHANGES TO PREVIOUS DOCUMENTATION: No changes PLANNED PROCEDURE: Operation Date: 06/08/23 08:05 Proposed Procedures p Amputation Toe/s Hallux Amputation(Right) - Jamil Multani DPM
[2023-06-08] MEDS: BUPivacaine 0.5% INJ 30 mL INJECTION (08:30)
--- NOTE | 2023-06-08 09:10 | P.OP_ITS ---
Operative Report Date of procedure: June 08, 2023 Pre-op diagnosis: Right hallux white gangrene Post-op diagnosis: Same Post-op findings: Right hallux with gangrene, [place] purulence with necrosis extending to the level of the MTPJ. Tissues at the level of the MTPJ after disarticulation appeared healthy and viable. No proximal tracking. No further purulence observed upon milking the foot. Procedure done: Right hallux amputation CPT 40037 Specimens removed/disposition: Right hallux sent a surgical specimen, aerobic and anaerobic cultures taken intraoperatively and sent to [place] for ID and sensitivity Surgeon: Dr. Jamil Multani, Rc.P.M. Estimated blood loss: 20 cc Complications: None Findings: See above Procedure: Patient is a 58-year-old male that has a history of right hallux wet gangrene. Over the course of the past week the patient's right hallux infection has continued to worsen to the point that he is now having systemic manifestations such as fever, chills, nausea. The extent of the infection requires surgical debridement and probable hallux amputation of the right foot. A lengthy discussion regarding the procedure, including risks and complications has been had with the patient and is noted in the recent clinic note. Written and verbal consent have been obtained. All patient questions have been answered to the patient?s satisfaction. No written or verbal guarantees have been given or implied. The patient has been NPO since midnight. The history has been reviewed and the history and physical is current. The signed consent was confirmed and placed in the patient chart. Patient imaging has been reviewed and is consistent with the diagnosis. Under mild sedation, the patient was brought into the operating room and left on the gurney in the supine position. The patient is receiving IV antibiotics [id number] on the floor.. IV sedation was then performed by the anesthesiateam. A pneumatic tourniquet was then placed about the right ankle but was not inflated. A local field block using 0.5% Marcaine plain was then performed. The operative extremity was then prepped and draped in the usual fashion. After prep, the following procedure was then performed. Attention was directed to the right hallux where blackened discolored necrotic distal aspect was noted with [place] purulence and erythema extending to the level of the metatarsophalangeal joint. Right hallux was edematous and fluctuant distally. The hallux was assessed and there was noted to be a plantar wound to the plantar aspect of the right hallux at the level of the interphalangeal joint. It was decided upon examining of the hallux that disarticulation at the metatarsal phalangeal joint would be the most appropriate for source control. A #15 blade was used to make a racquet style incision around the hallux with the dorsal arm over the dorsomedial aspect of the first metatarsal head. Incision was full-thickness down to the level of bone. Dissection was carried out to the level of the metatarsophalangeal joint where the collateral ligaments were incised and the toe was disarticulated and passed from the operative field to be sent a surgical specimen. Cultures both aerobic and anaerobic were taken of the [place] purulence intraoperatively and sent to micro for ID and sensitivity. At this point, any bleeders were cauterized as necessary. The remaining tissues appeared healthy and viable in nature. The site was then irrigated with copious amounts of sterile saline before attention was directed to closure. After inspection of the tissues and again noting that all remaining tissues appeared healthy and viable the amputation site was closed with 3-0 Prolene in simple interrupted fashion. Incision site was dressed with Xeroform, 4 x 4 gauze, Kerlix and Brandon bandage The patient tolerated the procedure and anesthesia well and without complication. The patient was transported from the operating room to the recovery room with vital signs stable and vascular status intact to all remaining digits of the right foot. The patient was given both written and verbal instructions to remain nonweightbearing to the operative extremity, to keep dressings/splint clean, dry and intact and to take pain medication as dir ected. The patient will follow-up in the outpatient setting at their scheduled appointment. The patient was discharged with my personal number and was instructed to call if any questions or issues should arise. They were discharged home once anesthesia criteria was met. Based on the intraoperative findings and the viability of the remaining tissue patient will be okay to be discharged home on oral antibiotics. I will discuss this further with the hospitalist.
--- NOTE | 2023-06-08 09:20 | ANE.PACU2 ---
Inpatient post-anesthesia follow up: Airway intact: Yes Vital signs: Temperature 97.2 F Pulse Rate 85 Respiratory Rate 19 Blood Pressure 172/91 Pulse Oximetry 100 Oxygen Delivery Me thod Room Air Oxygen Flow Rate Fraction of Inspir ed Oxygen Hydration adequate: Yes Nausea and vomiting: No Pain level: 1 Mental status: Baseline
[2023-06-08 09:47] LABS: Glucose Point of Care 153 mg/dL (70-110)
--- NOTE | 2023-06-08 10:33 | P.PN_ITS ---
Subjective Subjective: No acute events overnight. Appreciate MRI results. Today morning seen postoperatively. Patient sitting up comfortably in bed, denies any nausea, vomiting, headache. States pain is well-controlled. Blood work today shows a stable white count of 14,000, hemoglobin of 8.7, CMP showing stable creatinine and electrolytes, A1c of 7. Vitals/I&O/Wt Last Vital Signs Temp 97.2 F L 06/08/23 09:18 Pulse 76 06/08/23 09:18 Resp 15 06/08/23 09:18 BP 141/75 06/08/23 09:18 Pulse Ox 95 06/08/23 09:18 O2 Del Method Room Air 06/08/23 09:18 06/07/23 06/08/23 06/08/23 22:59 06:59 14:59 Intake Total 780 / 780 50 / 830 310 / 310 Output Total 20 / 20 Balance 780 / 780 50 / 830 290 / 290 Weight last 48 hrs Weight 79.379 kg Physical Exam Narrative: General: No acute distress, AO x3 HEENT: PERRLA, pupils bilaterally equal and reactive Chest: Normal vesicular breath sounds, no added sounds, equal good air entry bilaterally CVS: S1-S2 regular, no murmurs, no tachycardia, no gallops, no rubs Abdomen: Soft, nontender, no organomegaly, bowel sounds present Neuro: No focal deficits, no facial deformity, AO x3, power 5/5 in all limbs Extremity: Right foot surgically bandaged Skin: Multiple superficial abrasions all over body which are chronic as per the patient, even present on the scalp Data 06/08/23 04:51 06/08/23 04:51 Micro: Microbiology 06/07/23 16:57 Blood Culture - Preliminary Blood SPECIMEN COLLECTED 06/07/23 16:57 Blood Culture - Preliminary Blood SPECIMEN COLLECTED A&P Assessment and plan (1) Gangrene of toe of right foot: Post right hallux amputation day 0. Appreciate podiatry recommendations. Follow-up OR and blood cultures. Appreciate MRI results. For now continue with empiric vancomycin and Zosyn. Will de-escalate as per culture results. If patient remains hemodynamically stable and afebrile for next 24 hours can transition to oral antibiotics. Morphine 1 mg 4 hours as needed for pain, tramadol 50 mg every 6 hourly as needed for pain. (2) Type 2 diabetes mellitus: Recent A1c 6.7. Insulin sliding scale at moderate dose protocol. (3) Essential hypertension: Goal blood pressure less than 140/90 mmHg. Takes lisinopril, triamterene and hydrochlorothiazide at home. Hold off on triamterene hydrochlorothiazide combination for now. Continue with lisinopril. Uptitrate as for goal blood pressures. Plan Cardiac carb consistent diet. SCDs for DVT prophylaxis Famotidine for PUD prophylaxis. Attestations Medical Necessity Statement*: Requires further hospitalization for management of wet gangrene of great toe of right foot post amputation while blood cultures in OR cultures are followed up Diagnoses Gangrene of toe of right foot I96 Type 2 diabetes mellitus E11.9 Essential hypertension I10
[2023-06-08] MEDS: ferrous gluconate 324 mg Tablet PO (10:48)
[2023-06-08 11:31] LABS: Glucose Point of Care 140 mg/dL (70-110)
[2023-06-08] MEDS: vancomycin 1,500 MG/300 ML PIGGYBACK 200 MG IV (11:41)
[2023-06-08 16:53] LABS: Glucose Point of Care 211 mg/dL (70-110)
[2023-06-08] MEDS: heparin 5,000 unit/mL INJ 1 mL 5000 UNIT SUBCUT (17:38)
[2023-06-08] MEDS: insulin lispro 100 unit/1 mL SUBCUT ×2 (17:38→21:46)
[2023-06-08 20:53] LABS: Glucose Point of Care 196 mg/dL (70-110)
[2023-06-08] MEDS: acetaminophen 325 mg Tablet 650 MG PO (21:45)
[2023-06-08] MEDS: sodium chloride 0.9% 1,000 ML 75 ML IV (21:47)
[2023-06-09] VITALS: BP 156/81; PULSE 73; RESP 16; TEMP 37.1; O2SAT 97
[2023-06-09 05:00] VITALS: BP 150/60; PULSE 62; RESP 18; TEMP 36.4; O2SAT 96
[2023-06-09 05:15] LABS: Basophils # 0.2 10^3/uL (0.0-0.1); Basophils % 1.3 %; Eosinophils # 0.3 10^3/uL (0.0-0.8); Eosinophils % 2.8 %; Hematocrit 28.7 % (42.0-52.0); Hemoglobin 9.3 g/dL (11.7-16.6); Lymphocytes # 2.7 10^3/uL (0.8-4.8); Lymphocytes % 24.1 %; Mean Corpuscular HGB Conc 32.4 g/dL (30.0-36.0); Mean Corpuscular Hemoglobin 30.1 pg (28.0-34.0); Mean Corpuscular Volume 92.9 fl (80-94); Mean Platelet Volume 9.4 fL (7.4-10.4); Monocytes # 0.9 10^3/uL (0.2-0.9); Monocytes % 7.9 %; Neutrophils # 7.16 10^3/uL (1.8-7.7); Neutrophils % 63.1 %; Nucleated Red Blood Cells % 0 %; Platelet Count 455 10^3/cmm (130-400); Red Blood Count 3.09 10^6/uL (4.1-5.3); Red Cell Distribution Width 12.9 % (12.1-15.1); White Blood Count 11.4 10^3/uL (4.0-10.0)
[2023-06-09 05:40] LABS: Alanine Aminotransferase 19 U/L (0-41); Albumin Level 3.2 g/dL (3.5-5.2); Alkaline Phosphatase 112 U/L (40-130); Anion Gap 13.7 (5-19); Aspartate Amino Transferase 21 U/L (0-40); Blood Urea Nitrogen 9 mg/dL (6-20); Calcium 8.1 mg/dL (8.5-10.5); Carbon Dioxide 26 mmol/L (22-29); Chloride 105 mmol/L (98-107); Glomerular Filtration Rate 77.3 mL/min (90-130); Glucose 106 mg/dL (65-115); Osmolality Calculated 289 mOsm/kg (285-295); Potassium 4.7 mmol/L (3.5-5.1); Sodium 140 mmol/L (136-145); Total Bilirubin 0.2 mg/dL (0.15-1.2); Total Protein 6.2 g/dL (6.6-8.7)
[2023-06-09] MEDS: vancomycin 1,500 MG/300 ML PIGGYBACK 200 MG IV (05:44)
[2023-06-09] MEDS: insulin glargine 100 units/1 mL 24 UNIT SUBCUT (05:44)
[2023-06-09 06:00] VITALS: PULSE 79
[2023-06-09 06:36] LABS: Glucose Point of Care 118 mg/dL (70-110)
[2023-06-09 07:08] VITALS: BP 138/79; PULSE 72; RESP 16; TEMP 36.8; O2SAT 98
--- NOTE | 2023-06-09 07:37 | PM.PN ---
Subjective Subjective: Patient seen at bedside this morning. Resting comfortably. Denies any feelings of general malaise. Patient states that he did scratch his head last night and bled for a long time. He denies any subjective fever, chills, nausea. Vitals/I&O/Wt Last Vital Signs Temp 98.2 F 06/09/23 07:08 Pulse 72 06/09/23 07:08 Resp 16 06/09/23 07:08 BP 138/79 06/09/23 07:08 Pulse Ox 98 06/09/23 07:08 O2 Del Method Room Air 06/08/23 16:00 06/08/23 06/09/23 06/09/23 22:59 06:59 14:59 Intake Total 1530 / 2670 170 / 2840 Balance 1530 / 2650 170 / 2820 Weight last 48 hrs Weight 185 lb Weight 175 lb Physical Exam Narrative: BELOW IS A FOCUSED LOWER EXTREMITY EXAM GENERAL: A&O x 3 VASCULAR: DP/PT pulses diminished +1 with delayed CFT. DERMATOLOGICAL: Right foot postoperative dressing clean, dry, intact with no strikethrough noted. MUSCULOSKELETAL: Tenderness with palpation of right hallux NEUROLOGICAL: Neurological sensation to the affected foot and ankle is diminished through L4-S1 dermatomes via 10g SWMF, diminished sensation extends proximally to the level of the midfoot Data 06/09/23 04:40 06/09/23 04:40 Micro: Microbiology 06/07/23 16:57 Blood Culture - Preliminary Blood NEGATIVE TO DATE 06/07/23 16:57 Blood Culture - Preliminary Blood NEGATIVE TO DATE 06/08/23 08:40 Gram Stain - Final Toe - #1 A&P Assessment and plan (1) Gangrene of toe of right foot: (2) Gangrene associated with type II diabetes mellitus: (3) Type 2 diabetes mellitus: Plan LABS AND CLINICAL INFO: WBC 15.9--> 11.4 ESR 19 CRP 131 VSS ABX: Vanco/Zosyn Blood cultures: NGTD PLAN: -Okay for diet from podiatry standpoint -Status post right hallux amputation. No further intervention by podiatry during this admission. Patient is stabilizing from an infection standpoint after hallux amputation. Patient is okay to discharge home from podiatry standpoint on appropriate oral antibiotics. I recommend broad-spectrum empiric form of p.o. clindamycin 300 3 times daily and Cipro 500 twice daily x 10 days. I will adjust this in the outpatient setting pending intraoperative culture results -I will discuss this plan of care with hospitalist -Trend labs -Weightbearing: Weightbearing to right foot for transfers only -Discharge plan: Patient is okay to discharge home on appropriate oral antibiotics. Patient is to leave dressing clean, dry, intact until he sees me within the next week. Follow-up with Dr. Multani within 7 days of discharge. Attestations Medical Necessity Statement*: Right hallux amputation necessitating surgical amputation and infection source control. Coding Level of Care Code Acute Code for [facility] Diagnoses Gangrene of toe of right foot I96 Gangrene associated with type II diabetes mellitus E11.52 Type 2 diabetes mellitus E11.9
[2023-06-09] MEDS: piperacillin-tazobactam 3.375 GM in sodium chloride 0.9% (plus) 50 ML IV (08:13)
[2023-06-09] MEDS: lisinopril 20 mg Tablet 40 MG PO (08:14)
[2023-06-09] MEDS: atorvastatin 40 mg Tablet PO (08:14)
[2023-06-09 11:13] LABS: Glucose Point of Care 146 mg/dL (70-110)
[2023-06-09 11:18] VITALS: BP 172/88; PULSE 79; RESP 16; TEMP 36.9; O2SAT 100
[2023-06-09] MEDS: insulin lispro 100 unit/1 mL SUBCUT (11:48)
--- NOTE | 2023-06-09 12:00 | P.DS_ITS ---
Discharge Providers Date of Admission: 06/07/23 19:13 Date of Discharge: June 09, 2023 Attending Provider at Admission: Terence Novoa MD Attending Provider at Discharge: Terence Novoa MD Consults: Podiatry: Dr. Multani Primary Care Provider: Sagrario Diaz NP Diagnoses at Discharge Discharge Diagnosis (1) Gangrene of toe of right foot: Status: Acute (2) Gangrene associated with type II diabetes mellitus: Status: Acute (3) Type 2 diabetes mellitus: Status: Acute Reason for Visit Reason for Visit: Infection Big Toe Hospital Course Hospital Course Joseph Baker is a 58 year old male with past medical history of hypertension, type 2 diabetes mellitus was sent in through the primary care's office because of swelling and pain in the right foot for last 1 week to 10 days mostly in the right great toe.? Patient thinks it infection started when he was in [place] around that time and has been getting worse.? He has been using castor oil at home.? Nail came off yesterday.? As the pain was getting worse and the toe was turning black he presented to the ER.? Patient has been having subjective low-grade fever fevers at home.? Denies any nausea vomiting, headache, dizziness. In the ER patient was given 1 dose of vancomycin and Zosyn after blood cultures were taken, foot x-ray was done and podiatry was consulted from the ER. Patient underwent right hallux amputation on 06/08. He tolerated the procedure well. His blood cultures remained negative. OR cultures are growing moderate GPC's and rare gram-negative rods. His hospitalization was unremarkable. MRSA swab has been sent out. He has been discharged on empiric Augmentin and ciprofloxacin for 10-day course. He is to follow-up with his primary care provider onsite appointment and with podiatry in 1 week. Dressing recommendations have been discussed in detail with the patient. Physical Exam Narrative: General: No acute distress, AO x3 HEENT: PERRLA, pupils bilaterally equal and reactive Chest: Normal vesicular breath sounds, no added sounds, equal good air entry bilaterally CVS: S1-S2 regular, no murmurs, no tachycardia, no gallops, no rubs Abdomen: Soft, nontender, no organomegaly, bowel sounds present Neuro: No focal deficits, no facial deformity, AO x3, power 5/5 in all limbs Extremity: Right foot surgically bandaged Skin: Multiple superficial abrasions all over body which are chronic as per the patient, even present on the scalp Discharge Data Studies Completed and Pending Completed Studies During Hospitalization Category Date Time Status XR foot RT min 3V* [id number] Stat Exams 06/07/23 16:19 Completed MR foot RT wo con* [id number] Stat MRI 06/08/23 07:00 Completed Pending at discharge Category Date Time Status Anaerobic Culture Routine Lab 06/08/23 08:40 Results Blood Culture Stat Lab 06/07/23 16:57 Results MRSA by PCR Stat Lab 06/09/23 09:39 Received Vancomycin Trough Timed Lab 06/09/23 23:00 Ordered Wound Culture and Gram Stain Routine Lab 06/08/23 08:40 Results Pathology: Surgical [PTH] Routine Pth 06/08/23 08:57 Received Radiology Impressions Foot X-Ray 06/07/23 16:19 IMPRESSION: No acute abnormality. MRI foot: IMPRESSION: 1. Extensive soft tissue edema surrounding the first toe. Edema extends circumferentially around the first toe. 2. Marrow edema with loss of the normal cortex involving the distal phalanx. 3. No soft tissue abscess. Cannot exclude osteomyelitis without IV contrast. Microbiology 06/07/23 16:57 Blood Blood Culture - Preliminary NEGATIVE TO DATE 06/07/23 16:57 Blood Blood Culture - Preliminary NEGATIVE TO DATE 06/08/23 08:40 Toe - #1 Gram Stain - Final Laboratory Results WBC 11.4 10^3/uL (4.0-10.0) H 06/09/23 04:40 RBC 3.09 10^6/uL (4.1-5.3) L 06/09/23 04:40 Hgb 9.3 g/dL (11.7-16.6) L 06/09/23 04:40 Hct 28.7 % (42.0-52.0) L 06/09/23 04:40 MCV 92.9 fl (80-94) 06/09/23 04:40 MCH 30.1 pg (28.0-34.0) 06/09/23 04:40 MCHC 32.4 g/dL (30.0-36.0) 06/09/23 04:40 RDW 12.9 % (12.1-15.1) 06/09/23 04:40 Plt Count 455 10^3/cmm (130-400) H 06/09/23 04:40 MPV 9.4 fL (7.4-10.4) 06/09/23 04:40 Neut % (Auto) 63.1 % 06/09/23 04:40 Lymph % (Auto) 24.1 % 06/09/23 04:40 [place] % (Auto) 7.9 % 06/09/23 04:40 Eos % (Auto) 2.8 % 06/09/23 04:40 Baso % (Auto) 1.3 % 06/09/23 04:40 Neut # (Auto) 7.16 10^3/uL (1.8-7.7) 06/09/23 04:40 Lymph # (Auto) 2.7 10^3/uL (0.8-4.8) 06/09/23 04:40 [place] # (Auto) 0.9 10^3/uL (0.2-0.9) 06/09/23 04:40 Eos # (Auto) 0.3 10^3/uL (0.0-0.8) 06/09/23 04:40 Baso # (Auto) 0.2 10^3/uL (0.0-0.1) H 06/09/23 04:40 Nucleated RBC % (auto) 0 % 06/09/23 04:40 Nucleated RBCs # 0.0 /100WBC 06/09/23 04:40 ESR 19 mm/hr (0-10) H 06/07/23 16:27 Sodium 140 mmol/L (136-145) 06/09/23 04:40 Potassium 4.7 mmol/L (3.5-5.1) 06/09/23 04:40 Chloride 105 mmol/L (98-107) 06/09/23 04:40 Carbon Dioxide 26 mmol/L (22-29) 06/09/23 04:40 Anion Gap 13.7 (5-19) 06/09/23 04:40 BUN 9 mg/dL (6-20) 06/09/23 04:40 Creatinine 1.0 mg/dL (0.7-1.2) 06/09/23 04:40 GFR Calculation 77.3 mL/min (90-130) L 06/09/23 04:40 Glucose 106 mg/dL (65-115) 06/09/23 04:40 POC Glucose 146 mg/dL (70-110) H 06/09/23 11:05 Estimat Average Glucose 154 06/08/23 04:51 Hemoglobin A1c 7.0 % (4.0-6.0) H 06/08/23 04:51 Calculated Osmolality 289 mOsm/kg (285-295) 06/09/23 04:40 Lactic Acid 0.8 mmol/L (0.5-2.2) 06/07/23 16:27 Calcium 8.1 mg/dL (8.5-10.5) L 06/09/23 04:40 Phosphorus 3.6 mg/dL (2.5-4.5) 06/08/23 04:51 Magnesium 2.1 mg/dL (1.7-2.3) 06/08/23 04:51 Iron 19 ug/dL (59-158) L 06/07/23 16:27 TIBC 232 mcg/dl 06/07/23 16:27 % Saturation 8.1 % (20-50) L 06/07/23 16:27 Unsat Iron Binding 213 ug/dL (112-347) 06/07/23 16:27 Total Bilirubin 0.2 mg/dL (0.15-1.2) 06/09/23 04:40 AST 21 U/L (0-40) 06/09/23 04:40 ALT 19 U/L (0-41) 06/09/23 04:40 Alkaline Phosphatase 112 U/L (40-130) 06/09/23 04:40 C-Reactive Protein 131.0 mg/L (0.0-4.9) H 06/07/23 16:27 Total Protein 6.2 g/dL (6.6-8.7) L 06/09/23 04:40 Albumin 3.2 g/dL (3.5-5.2) L 06/09/23 04:40 Globulin 3.0 g/dL (1.3-4.6) 06/09/23 04:40 Triglycerides 173 mg/dL (0-150) H 06/08/23 04:51 Cholesterol 162 mg/dL (0-200) 06/08/23 04:51 LDL Cholesterol, Calc 104 mg/dL (50-129) 06/08/23 04:51 HDL Cholesterol 23 mg/dL (60-100) L 06/08/23 04:51 LDL/HDL Ratio 4.52 RATIO (0.00-3.22) H 06/08/23 04:51 Cholesterol/HDL Ratio 7.04 mg/dL (1.0-5.00) H 06/08/23 04:51 Vitamin B12 615 pg/mL (232-1245) 06/07/23 16:27 Folate 12.7 ng/mL (4.5-32.2) 06/08/23 04:51 Procalcitonin 0.22 ng/mL (0-0.5) 06/07/23 16: TSH 1.31 uIU/mL (0.27-4.20) 06/07/23 16:27 Urine Color Light yellow (Yellow) 06/07/23 18:50 Urine Appearance Clear (CLEAR) 06/07/23 18:50 Urine pH 9 (5-7) H 06/07/23 18:50 Ur Specific [place] 1.015 (1.005-1.030) 06/07/23 18:50 Urine Protein 1+ (Negative) H 06/07/23 18:50 Urine Glucose (UA) Norm (Normal) 06/07/23 18:50 Urine Ketones Negative (Negative) 06/07/23 18:50 Urine Blood Neg (Negative) 06/07/23 18:50 Urine Nitrate Negative (Negative) 06/07/23 18:50 Urine Bilirubin Neg (Negative) 06/07/23 18:50 Prot Sulfosalicylic Acd Positive (Negative) 06/07/23 18:50 Urine Urobilinogen Neg mg/dL (Negative) 06/07/23 18:50 Ur Leukocyte Esterase Negative (Negative) 06/07/23 18:50 Urine RBC None /hpf (0-2) 06/07/23 18:50 Urine WBC None /hpf (0-5) 06/07/23 18:50 Ur Squamous Epith Cells None /hpf (0-5) 06/07/23 18:50 Amorphous Sediment Not Reportable 06/07/23 18:50 Urine Bacteria Trace /hpf (NONE) 06/07/23 18:50 Vitals Last Vital Signs Temp 98.4 F 06/09/23 11:18 Pulse 79 06/09/23 11:18 Resp 16 06/09/23 11:18 BP 172/88 06/09/23 11:18 Pulse Ox 100 06/09/23 11:18 O2 Del Method Room Air 06/08/23 16:00 Discharge Plan Discharge Patient Disposition: Home Condition: Stable Prescriptions: New amoxicillin-pot clavulanate 875-125 mg tablet 1 tab PO BID Qty: 20 0RF ciprofloxacin HCl 500 mg tablet 500 mg PO Q12H 10 Days Qty: 20 0RF Continued (DME) FreeStyle Kee 2 [place] Misc See Rx Instructions .Route Qty: 1 0RF Rx Instructions: As directed (DME) FreeStyle Kee 2 Sensor Kit See Rx Instructions .Route Qty: 1 0RF Rx Instructions: As directed atorvastatin 40 mg tablet 40 mg PO DAILY Qty: 90 3RF ferrous sulfate 325 mg (65 mg iron) tablet 325 mg PO DAILY Qty: 30 11RF (DME) lancets 30 gauge misc See Rx Instructions .Route Qty: 300 6RF Rx Instructions: As directed to test TID (DME) Blood Glucose Test Strip See Rx Instructions .Route Qty: 300 3RF Rx Instructions: As directed TO TEST TID (DME) blood-glucose meter [Blood Glucose Monitoring] Kit See Rx Instructions .Route Qty: 1 0RF Rx Instructions: As directed lisinopril 40 mg tablet 40 mg PO DAILY Qty: 90 3RF metformin 1,000 mg tablet 1,000 mg PO BID Qty: 180 3RF glyburide 5 mg tablet 10 mg PO DAILY Qty: 180 3RF Lantus Solostar U-100 Insulin 100 unit/mL (3 mL) insulin pen 24 unit SUBCUT .QAM triamterene-hydrochlorothiazid 37.5-25 mg capsule 1 cap PO QDAY Discharge Orders: Discharge Order (Routine); Ordered 06/09/23 Ordered By: Terence Novoa Other Ambulatory Orders: DME: Cane/ Crutches (Order) Location: None Selected Ordered By: Terence Novoa Referrals: Jamil Multani DPM [Physician] - 4-7 days Sagrario Diaz NP [Primary Care Provider] - 06/15/23 10:00 am () Discharge Diet: Cardiac and Diabetic Discharge Activity: Resume usual activity and Increase activity as tolerated Patient Instructions: Opioid Safety, Pain Management Activity Restrictions/Additional Instructions: Please take Augmentin and ciprofloxacin which are the antibiotics. Follow-up with your primary care provider onsite appointment. Patient is to leave dressing clean, dry, intact until he sees me within the next week.? Follow-up with Dr. Multani within 7 days of discharge. Weightbearing to right foot for transfers only Discharge Attestations Time Spent in Discharge Care*: greater than 30 min Specific Discharge Activities: educating patient, discussing with pcp/other providers, discussing with case management manager/social workers/dc planners, documenting/other paperwork and evaluating patient/reviewing data Status at Discharge: Cognitive status at discharge: cognitively intact , Behavioral status at discharge: cooperative , Functional status at discharge: independent ambulation , Overall status at discharge: patient is back to baseline Quality Metrics Clinical Quality Measures [ No reported AMI, CVA or VTE this stay] Coding Level of Care Code 60171 Total time (in minutes) for Discharge: 50 Diagnoses Gangrene of toe of right foot I96 Gangrene associated with type II diabetes mellitus E11.52 Type 2 diabetes mellitus E11.9
[2023-06-09 15:01] VITALS: BP 172/88; PULSE 79; RESP 16; TEMP 36.9; O2SAT 100
--- NOTE | 2023-06-09 15:03 | PC.NURSE ---
Discharge medications, continued medications and follow up appointments as well as post op instructions. Verbalized understanding.
== END 2023-06-09 14:46 | disposition home or self-care (01) | DRG 256 ==
LOC: ER 17:53 → MEDSURG 19:13
PROVIDERS: Physician Assistant; Podiatrist Foot & Ankle Surgery; Admitting Provider Student in an Organized Health Care Education/Training Program; Emergency Provider Emergency Medicine; PCP Nurse Practitioner Family; Visit Provider Student in an Organized Health Care Education/Training Program
PROC: 0Y6P0Z0 Detachment at Right 1st Toe, Complete, Open Approach (ICD-10-PCS; principal; 2023-06-08 07:45)
DX: E11.52 Type 2 diabetes mellitus with diabetic peripheral angiopathy with gangrene (principal); I96 Gangrene, not elsewhere classified; I10 Essential (primary) hypertension; Z79.84 Long term (current) use of oral hypoglycemic drugs; Z79.4 Long term (current) use of insulin; Z85.828 Personal history of other malignant neoplasm of skin
CPT/HCPCS: 36415; 36416; 73630; 73718; 80053; 80061; 81001; 82607; 82746; 82962; 83036; 83540; 83550; 83605; 83735; 84100; 84145; 84443; 85025; 85651; 86140; 87040; 87070; 87075; 87077; 87186; 87205; 87641; 88305; 88311; 94664; 96365; 96366; 96367; 96372; 99285; J1644; J1650; J1815; J2543; J2704; J3010; J3370; J3490; J7030; J7050

== ENCOUNTER 2024-02-10 15:38 | Emergency (ER) | payer MEDICAID, SELFPAY ==
[2024-02-10 15:50] VITALS: BP 190/113; PULSE 99; RESP 18; TEMP 36.9; O2SAT 99
--- NOTE | 2024-02-10 16:12 | XRR_ITS ---
PROCEDURE INFORMATION: Exam: XR Chest Exam date and time: 02/10/2024 4:55 PM Age: 59 years old Clinical indication: Chest wall pain; Additional info: Fall, chest pain TECHNIQUE: Imaging protocol: Radiologic exam of the chest. Views: 1 view. COMPARISON: No relevant prior studies available. FINDINGS: Lungs: Unremarkable. No consolidation. Pleural spaces: Unremarkable. No pleural effusion. No pneumothorax. Heart/Mediastinum: Unremarkable. No cardiomegaly. Bones/joints: Unremarkable. XR/XR chest 1V [id number] IMPRESSION: No acute findings.
--- NOTE | 2024-02-10 16:12 | ECG_ITS ---
[facility] Test Date: 2024-02-10 Pat Name: Joseph Baker Department: Room: Gender: Male Vision Specialist: : 1965 Requested By: Kay Lewis Order Number: [id number] Miles MD: Toby Saenz M.D. Measurements Intervals [place] Rate: 93 P: 46 MO: 154 QRS: 41 QRSD: 68 T: 44 QT: 326 QTc: 406 Interpretive Statements SINUS RHYTHM No previous ECG available for comparison Electronically Signed On 02-10-2024 16:59:32 CDT by Toby Saenz M.D. [id number]
[2024-02-10 17:24] LABS: Basophils # 0.1 10^3/uL (0.0-0.1); Eosinophils # 0.3 10^3/uL (0.0-0.8); Eosinophils % 2.5 %; Hematocrit 36.5 % (37-53); Lymphocytes # 2.2 10^3/uL (0.8-4.8); Lymphocytes % 19.7 %; Mean Corpuscular HGB Conc 32.1 g/dL (30-55); Mean Corpuscular Hemoglobin 30.2 pg (27-33); Mean Corpuscular Volume 94.3 fl (82-101); Monocytes # 0.6 10^3/uL (0.2-0.9); Monocytes % 5.4 %; Neutrophils # 8.06 10^3/uL (1.8-7.7); Neutrophils % 71.1 %; Nucleated Red Blood Cells % 0 %; Platelet Count 363 10^3/cmm (157-399); Red Blood Count 3.87 10^6/uL (3.85-5.65); Red Cell Distribution Width 12.9 % (12.1-15.1); White Blood Count 11.32 10^3/uL (3.29-11.43)
--- NOTE | 2024-02-10 17:27 | W.ED.GENADLT ---
HPI - General Adult General: Chief complaint: General Medical Stated complaint: sent by natty watters,passed out 2 days ago Time Seen by Provider: 02/10/24 17:22 History of Present Illness: 59-year-old man with a history of diabetes and hypertension who presents the emergency room after having a fall approximately 3 days ago. He had passed out at that time. He was reporting some high blood pressures at home. He says his doctor told him to come to the emergency room to get a chest x-ray and check out his blood pressure. He is having some mild right chest wall tenderness. No shortness of breath. No abdominal pain. No nausea or vomiting. No altered mental status. He says he did have some vomiting a few days ago after the fall. He knocked out a tooth as well. No altered mental status and no focal motor deficits. Review of Systems Narrative: Constitutional symptoms: Negative except as documented in HPI. Skin symptoms: Negative except as documented in HPI. Eye symptoms: Negative except as documented in HPI. ENMT symptoms: Negative except as documented in HPI. Respiratory symptoms: Negative except as documented in HPI. Cardiovascular symptoms: Negative except as documented in HPI. Gastrointestinal symptoms: Negative except as documented in HPI. Genitourinary symptoms: Negative except as documented in HPI. Musculoskeletal symptoms: Negative except as documented in HPI. Neurologic symptoms: Negative except as documented in HPI. Psychiatric symptoms: Negative except as documented in HPI. Endocrine symptoms: Negative except as documented in HPI. [facility] ED PFSH: Medical History Basal cell carcinoma Blind duodenal loop syndrome BMI 27.0-27.9,adult Bowel habit changes Essential hypertension Impaired visual perception Surgical History History of bilateral cataract extraction left Family History Mother Stroke Diabetes Graves disease Arthritis Father No problems noted. Social History Smoking and tobacco/nicotine status: never used tobacco/nicotine Alcohol intake: current Alcohol intake frequency: holidays/special occasions only Alcohol type: wine Physical Exam Narrative: EXAM NARRATIVE: General: Alert, no acute distress. Skin: Warm, dry. Head: Normocephalic, atraumatic. Neck: Supple, trachea midline. Eye: Extraocular movements are intact. Ears, nose, mouth and throat: mucosa moist. Cardiovascular: Regular, Normal peripheral perfusion. Respiratory: Lungs are clear to auscultation, respirations are non-labored, breath sounds are equal, Symmetrical chest wall expansion. Some mild tenderness to palpation on the lateral lower right ribs. Nothing focal. No obvious deformity. Gastrointestinal: Soft, Nontender, Non distended, Normal bowel sounds. Musculoskeletal: Normal ROM, no deformity. Neurological: Alert and oriented, No focal neurological deficit observed. Psychiatric: Cooperative, appropriate mood & affect. Course Vital Signs: Vital signs: Vital Signs Temperature 98.4 F 02/10/24 15:50 Pulse Rate 99 02/10/24 18:09 Respiratory Rate 18 02/10/24 15:50 Blood Pressure 193/107 02/10/24 18:09 Pulse Oximetry 99 02/10/24 18:09 Oxygen Delivery Me thod Room Air 02/10/24 18:09 MDM - General Adult Medical Decision Making Medical decision making: Differential diagnosis including but not limited to and based on the above HPI, review of systems and physical exam: Given the history of a fall chest x-ray was ordered to rule out rib fractures and pneumothorax. With his history of syncope and hypertension an EKG and basic lab work were ordered as well. Orders placed to evaluate differential diagnosis based on the above differential, HPI and physical exam Lab Review: Laboratory results were reviewed and interpreted by myself the emergency room physician. Lab work is fairly unremarkable. White count is 11. Hemoglobin is 11.7. BUN and creatinine are 20 and 1.1. Initial troponin was slightly elevated at 80. He has not been having any cardiac symptoms in the last day or 2. I attempted to get a second troponin but patient felt like he wanted to leave and did not want to wait for this further lab testing. Chest x-ray: No acute process. No infiltrate. No pneumothorax. No cardiomegaly. This was reviewed and interpreted by myself the ER physician. Reexamination: Patient is in the kuo breathing normally standing no acute distress. Requesting discharge paperwork. Lab Data 02/10/24 17:18 02/10/24 17:18 Radiology Impressions Chest X-Ray 02/10/24 16:12 IMPRESSION: No acute findings. Laboratory Results WBC 11.32 10^3/uL (3.29-11.43) 02/10/24 17:18 RBC 3.87 10^6/uL (3.85-5.65) 02/10/24 17:18 Hgb 11.70 g/dL (11.27-16.99) 02/10/24 17:18 Hct 36.5 % (37-53) L 02/10/24 17:18 MCV 94.3 fl (82-101) 02/10/24 17:18 MCH 30.2 pg (27-33) 02/10/24 17:18 MCHC 32.1 g/dL (30-55) 02/10/24 17:18 RDW 12.9 % (12.1-15.1) 02/10/24 17:18 Plt Count 363 10^3/cmm (157-399) 02/10/24 17:18 MPV 10.0 fL (7.4-10.4) 02/10/24 17:18 Neut % (Auto) 71.1 % 02/10/24 17:18 Lymph % (Auto) 19.7 % 02/10/24 17:18 [place] % (Auto) 5.4 % 02/10/24 17:18 Eos % (Auto) 2.5 % 02/10/24 17:18 Baso % (Auto) 1.0 % 02/10/24 17:18 Neut # (Auto) 8.06 10^3/uL (1.8-7.7) H 02/10/24 17:18 Lymph # (Auto) 2.2 10^3/uL (0.8-4.8) 02/10/24 17:18 [place] # (Auto) 0.6 10^3/uL (0.2-0.9) 02/10/24 17:18 Eos # (Auto) 0.3 10^3/uL (0.0-0.8) 02/10/24 17:18 Baso # (Auto) 0.1 10^3/uL (0.0-0.1) 02/10/24 17:18 Nucleated RBC % (auto) 0 % 02/10/24 17:18 Nucleated RBCs # 0.0 /100WBC 02/10/24 17:18 Sodium 136 mmol/L (136-145) 02/10/24 17:18 Potassium 5.7 mmol/L (3.5-5.1) H 02/10/24 17:18 Chloride 100 mmol/L (98-107) 02/10/24 17:18 Carbon Dioxide 27 mmol/L (22-29) 02/10/24 17:18 Anion Gap 14.7 (5-19) 02/10/24 17:18 BUN 20 mg/dL (6-20) 02/10/24 17:18 Creatinine 1.1 mg/dL (0.7-1.2) 02/10/24 17:18 GFR Calculation 69.0 mL/min (90-130) L 02/10/24 17:18 Glucose 171 mg/dL (65-115) H 02/10/24 17:18 Calculated Osmolality 289 mOsm/kg (285-295) 02/10/24 17:18 Calcium 9.0 mg/dL (8.5-10.5) 02/10/24 17:18 Troponin T Baseline 82 ng/L (0-15) H 02/10/24 17:18 All radiology interpretation(s) finalized by discharge Other Data Assessment and plan: - Discharged home - Discussed plan with patient. Answered any questions. - Evaluation and treatment of this problem were appropriate in the emergency setting. Discharge Plan Discharge Patient Disposition: Home Clinical Impression: Rib injury Condition: Stable Prescriptions: No Action (DME) lancets 30 gauge misc See Rx Instructions .Route Qty: 300 6RF Rx Instructions: As directed to test TID (DME) Blood Glucose Test Strip See Rx Instructions .Route Qty: 300 3RF Rx Instructions: As directed TO TEST TID (DME) blood-glucose meter [Blood Glucose Monitoring] Kit See Rx Instructions .Route Qty: 1 0RF Rx Instructions: As directed cephalexin 500 mg capsule 500 mg PO QID atorvastatin 40 mg tablet 40 mg PO DAILY Qty: 90 3RF ferrous sulfate 325 mg (65 mg iron) tablet 325 mg PO DAILY Qty: 90 3RF glyburide 5 mg tablet 10 mg PO DAILY Qty: 180 3RF Lantus Solostar U-100 Insulin 100 unit/mL (3 mL) insulin pen 24 unit SUBCUT .QAM 90 Days Qty: 24 3RF lisinopril 40 mg tablet 40 mg PO DAILY Qty: 90 3RF metformin 1,000 mg tablet 1,000 mg PO BID Qty: 180 3RF (DME) pen needle, diabetic [BD Ultra-Fine Roz Pen Needle] 32 gauge x 5/32 needle See Rx Instructions .Route Qty: 100 3RF Rx Instructions: As directed triamterene-hydrochlorothiazid 37.5-25 mg capsule 1 cap PO QDAY Discharge Orders: Discharge ED (Routine); Ordered 02/10/24 Ordered By: Kay Malin Referrals: Sagrario Diaz NP [Primary Care Provider] - (You have been screened and evaluated and felt safe for discharge. Health conditions do change or evolve sometimes and as such it is important that you follow up with your Primary Doctor to be re checked, 3-5 days is a general good time frame for follow up. You are always welcome to return to the ED for re assessment if your symptoms are worsening or you have new concerns) Discharge Diet: Usual diet Discharge Activity: Resume usual activity Patient Instructions: Opioid Safety, Pain Management Coding Level of Care Code ED [employer] Investigator for Sandro Foster
[2024-02-10 17:41] LABS: Troponin(5th) Baseline 82 ng/L (0-15)
[2024-02-10 17:42] LABS: Anion Gap 14.7 (5-19); Blood Urea Nitrogen 20 mg/dL (6-20); Carbon Dioxide 27 mmol/L (22-29); Chloride 100 mmol/L (98-107); Glucose 171 mg/dL (65-115); Osmolality Calculated 289 mOsm/kg (285-295); Potassium 5.7 mmol/L (3.5-5.1); Sodium 136 mmol/L (136-145)
[2024-02-10 18:09] VITALS: BP 193/107; PULSE 99; O2SAT 99
== END 2024-02-10 19:06 | disposition home or self-care (01) ==
PROVIDERS: Emergency Provider Emergency Medicine; PCP Nurse Practitioner Family
DX: S29.9XXA Unspecified injury of thorax, initial encounter (principal); W19.XXXA Unspecified fall, initial encounter; I10 Essential (primary) hypertension; Z79.4 Long term (current) use of insulin; Z79.84 Long term (current) use of oral hypoglycemic drugs; E11.9 Type 2 diabetes mellitus without complications
CPT/HCPCS: 36415; 71045; 80048; 84484; 85025; 93005; 99285

== ENCOUNTER → 2024-02-14 11:37 | Outpatient (BNVA) | payer MEDICAID, SELFPAY | PROVIDERS: PCP Nurse Practitioner Family; Visit Provider Nurse Practitioner Family | DX: I10 Essential (primary) hypertension (principal); E11.9 Type 2 diabetes mellitus without complications | CPT/HCPCS: 80053; 80061; 82043; 83036 ==

== ENCOUNTER → 2024-05-16 11:05 | Outpatient (BNVA) | payer MEDICAID, SELFPAY | PROVIDERS: PCP Nurse Practitioner Family; Visit Provider Nurse Practitioner Family | DX: I10 Essential (primary) hypertension (principal); E11.9 Type 2 diabetes mellitus without complications; Z79.4 Long term (current) use of insulin; E78.2 Mixed hyperlipidemia | CPT/HCPCS: 83036 ==

== ENCOUNTER 2024-06-10 19:51 | Inpatient (IN) | payer MEDICARE, MEDICAID, SELFPAY ==
[2024-06-10 19:55] VITALS: BP 204/102; PULSE 102; RESP 18; TEMP 36.7; O2SAT 99; BMI 34.3
--- NOTE | 2024-06-10 20:03 | ECG_ITS ---
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 Measurements Intervals [place] Rate: 93 P: 43 SD: 158 QRS: 45 QRSD: 78 T: 47 QT: 341 QTc: 426 Interpretive Statements SINUS RHYTHM Compared to ECG 02/10/2024 16:28:52 No significant changes Electronically Signed On 06-12-2024 7:40:11 CDT by Toby Saenz M.D. [id number]
--- NOTE | 2024-06-10 20:04 | ED.C_ITS ---
HPI - Psych 2 General: Chief Complaint: Psychiatric Symptoms Stated Complaint: htn Time Seen by Provider: 06/10/24 19:51 Source: patient and EMS Mode of arrival: EMS History of Present Illness: 59-year-old male who called EMS tonight because he is hypertensive he has a long history of hypertension states has been taking his meds but states he has been under a lot of stress and very depressed lately. States he is depressed over his mother dying over Mother's Day. Patient states that he wants to be admitted to the [facility] for his depression he states he feels like he cannot control it anymore. Denies headache denies chest pain denies being suicidal. Associated symptoms: Reports depression; Deny suicidal ideation Related Data Previous Rx's Medication Instructions Recorded blood sugar diagnostic (Blood #300 ea 09/15/22 Glucose Test strips) blood-glucose meter (Blood Glucose #1 ea 09/15/22 Monitoring kit) lancets 30 gauge #300 ea 04/27/23 ferrous sulfate 325 mg (65 mg 325 mg PO DAILY #90 tabs 07/01/23 iron) tablet lisinopril 40 mg tablet 40 mg PO DAILY #90 tabs 07/01/23 metformin 1,000 mg tablet 1,000 mg PO BID #180 tabs 07/01/23 amlodipine 10 mg tablet 10 mg PO DAILY #90 tabs 04/10/24 insulin glargine 100 unit/mL (3 24 unit (0.24 mL) SUBCUT .QAM 90 05/16/24 mL) subcutaneous pen (Lantus days #24 mL Solostar U-100 Insulin) pen needle, diabetic 32 gauge x #100 ea 05/16/2432 (BD Ultra-Fine Rzo Pen Needle) Allergies Allergy/AdvReac Type Severity Reaction Status Date / Time No Known Allergies Allergy Verified 05/31/24 10:22 Review of Systems 2 Const: Denies: fever(s), chills, body aches or change in appetite ENMT: Denies: throat pain or dental pain Card: Denies: chest pain Resp: Denies: dyspnea GI: Denies: abdominal pain, nausea, vomiting or diarrhea Musc: Denies: neck pain or back pain Skin/Breast: Denies: rash Neuro: Denies: headache(s) Psych: Reports: depression; Denies: suicidal ideation PFS ED 2 PFSH: Medical History Impaired visual perception Blind duodenal loop syndrome Bowel habit changes Basal cell carcinoma BMI 27.0-27.9,adult Essential hypertension Surgical History History of bilateral cataract extraction left Family History Mother Stroke Diabetes Graves disease Arthritis Father No problems noted. Social History Smoking and tobacco/nicotine status: never used tobacco/nicotine Alcohol intake: current Alcohol intake frequency: holidays/special occasions only Alcohol type: wine Physical Exam 2 Const: COMMON NORMALS: no acute distress, patient oriented x3 and healthy appearing HENMT: COMMON NORMALS: normocephalic and atraumatic HEAD & SCALP: n ormocephalic and atraumatic Eye: COMMON NORMALS: conjunctivae normal CONJUNCTIVA: Yes conjunctivae normal Neck/C-Spine: COMMON NORMALS: full ROM and supple Chest: COMMONS NORMALS: normal inspection of the chest Resp: COMMON NORMALS: normal respiratory effort, No retractions, No use of accessory muscles and clear to auscultation bilaterally AUSCULTATION: clear to auscultation bilaterally Cardio: COMMON NORMALS: regular rate, regular rhythm and No murmurs present (Cardio) RATE: regular rate RHYTHM: regular rhythm Extremity: COMMON NORMALS: normal to inspection and full ROM Neuro: COMMON NORMALS: patient oriented x3, moves all extremities and no focal motor deficits Psych: COMMON NORMALS: mental status grossly normal, Normal thought process present and cooperative MOOD & AFFECT: Yes depressed mood THOUGHT PROCESS: Normal thought process present Skin: COMMON NORMALS: no rashes or lesions noted and no wounds GENERAL SKIN EXAM: no rashes or lesions noted Course 2 Vital Signs: Vital signs: Vital Signs Temperature 98.1 F 06/10/24 19:55 Pulse Rate 68 06/10/24 21:15 Respiratory Rate 16 06/10/24 21:15 Blood Pressure 147/88 06/10/24 21:15 Pulse Oximetry 95 06/10/24 21:15 Oxygen Delivery Me thod Room Air 06/10/24 19:55 [facility] - Psych Medical Decision Making Patient presents with depression voluntarily wants to be admitted to the [facility] he is medically cleared his blood pressure is improved here as well. Spoke to the psychiatrist will admit at this time. Medical Records I reviewed the patient's medical records. Lab Data I reviewed the patient's lab results. 06/10/24 20:26 06/10/24 20: Laboratory Results WBC 7.76 10^3/uL (3.29-11.43) 06/10/24 20: RBC 3.45 10^6/uL (3.85-5.65) L 06/10/24 20: Hgb 10.50 g/dL (11.27-16.99) L 06/10/24 20: Hct 31.5 % (37-53) L 06/10/24 20: MCV 91.3 fl (82-101) 06/10/24 20: MCH 30.4 pg (27-33) 06/10/24: MCHC 33.3 g/dL (30-55) 06/10/24: RDW 13.3 % (12.1-15.1) 06/10/24 20: Plt Count 318 10^3/cmm (157-399) 06/10/24 20: MPV 9.5 fL (7.4-10.4) 06/10/24 20: Neut % (Auto) 57.8 % 06/10/24 20: Lymph % (Auto) 28.0 % 06/10/24: [place] % (Auto) 6.8 % 06/10/24: Eos % (Auto) 5.8 % 06/10/24: Baso % (Auto) 1.5 % 06/10/24: Neut # (Auto) 4.48 10^3/uL (1.8-7.7) 06/10/24: Lymph # (Auto) 2.2 10^3/uL (0.8-4.8) 06/10/24: [place] # (Auto) 0.5 10^3/uL (0.2-0.9) 06/10/24 20: Eos # (Auto) 0.5 10^3/uL (0.0-0.8) 06/10/24: Baso # (Auto) 0.1 10^3/uL (0.0-0.1) 06/10/24 20:26 Nucleated RBC % (auto) 0 % 06/10/24 20:26 Nucleated RBCs # 0.0 /100WBC 06/10/24 20:26 Sodium 140 mmol/L (136-145) 06/10/24 20:26 Potassium 4.7 mmol/L (3.5-5.1) 06/10/24 20:26 Chloride 103 mmol/L (98-107) 06/10/24 20:26 Carbon Dioxide 25 mmol/L (22-29) 06/10/24 20:26 Anion Gap 16.7 (5-19) 06/10/24 20:26 BUN 24 mg/dL (6-20) H 06/10/24 20:26 Creatinine 1.4 mg/dL (0.7-1.2) H 06/10/24 20:26 GFR Calculation 52.2 mL/min (90-130) L 06/10/24 20:26 Glucose 144 mg/dL (65-115) H 06/10/24 20:26 POC Glucose 145 mg/dL (70-110) H 06/10/24 20:28 Calculated Osmolality 297 mOsm/kg (285-295) H 06/10/24 20:26 Calcium 8.7 mg/dL (8.5-10.5) 06/10/24 20:26 Total Bilirubin 0.2 mg/dL (0.15-1.2) 06/10/24 20:26 AST 14 U/L (0-40) 06/10/24 20:26 ALT 8 U/L (0-41) 06/10/24 20:26 Alkaline Phosphatase 89 U/L (40-130) 06/10/24 20:26 Total Protein 7.0 g/dL (6.6-8.7) 06/10/24 20:26 Albumin 4.0 g/dL (3.5-5.2) 06/10/24 20: Globulin 3.0 g/dL (1.3-4.6) 06/10/24 20:26 Salicylates < 0.3 mg/dL (3-10) L 06/10/24 20:26 Urine Opiates Screen Negative ng/mL (Negative) 06/10/24 21:01 Acetaminophen < 5.0 ug/mL (10-30) L 06/10/24 20:26 Ur Barbiturates Screen Negative ng/mL (Negative) 06/10/24 21:01 Ur Phencyclidine Scrn Negative ng/mL (Negative) 06/10/24 21:01 Ur Amphetamines Screen Negative ng/mL (Negative) 06/10/24 21:01 U Benzodiazepines Scrn Negative ng/mL (Negative) 06/10/24 21:01 Urine Cocaine Screen Negative ng/mL (Negative) 06/10/24 21:01 U Marijuana (THC) Screen Positive ng/mL (Negative) H 06/10/24 21:01 Ethyl Alcohol < 10 mg/dL (0-10) 06/10/24 20:26 All radiology interpretation(s) finalized by discharge EKG Data EKG 1: I personally reviewed and interpreted this EKG as follows: EKG interpretation date: 06/10/24 EKG interpretation time: 20:25 Interpretation: nsr hr [address] elevation qrs 78 qtc 392 Discharge Plan Discharge Admit Provider: Brady Cordero Condition: Stable Coding Level of Care Code ED Survey Research Analyst for Chg Kristin
[2024-06-10] MEDS: labetalol 5 mg/mL SDV 20mL 10 MG IVP (20:28)
[2024-06-10 20:30] VITALS: BP 188/115; PULSE 94; RESP 18; O2SAT 100
[2024-06-10 20:31] LABS: Glucose Point of Care 145 mg/dL (70-110)
[2024-06-10 20:33] LABS: Basophils # 0.1 10^3/uL (0.0-0.1); Basophils % 1.5 %; Eosinophils # 0.5 10^3/uL (0.0-0.8); Eosinophils % 5.8 %; Hematocrit 31.5 % (37-53); Lymphocytes # 2.2 10^3/uL (0.8-4.8); Mean Corpuscular HGB Conc 33.3 g/dL (30-55); Mean Corpuscular Hemoglobin 30.4 pg (27-33); Mean Corpuscular Volume 91.3 fl (82-101); Mean Platelet Volume 9.5 fL (7.4-10.4); Monocytes # 0.5 10^3/uL (0.2-0.9); Monocytes % 6.8 %; Neutrophils # 4.48 10^3/uL (1.8-7.7); Neutrophils % 57.8 %; Nucleated Red Blood Cells % 0 %; Platelet Count 318 10^3/cmm (157-399); Red Blood Count 3.45 10^6/uL (3.85-5.65); Red Cell Distribution Width 13.3 % (12.1-15.1); White Blood Count 7.76 10^3/uL (3.29-11.43)
[2024-06-10 20:57] LABS: Alanine Aminotransferase 8 U/L (0-41); Alkaline Phosphatase 89 U/L (40-130); Anion Gap 16.7 (5-19); Aspartate Amino Transferase 14 U/L (0-40); Blood Urea Nitrogen 24 mg/dL (6-20); Calcium 8.7 mg/dL (8.5-10.5); Carbon Dioxide 25 mmol/L (22-29); Chloride 103 mmol/L (98-107); Glomerular Filtration Rate 52.2 mL/min (90-130); Glucose 144 mg/dL (65-115); Osmolality Calculated 297 mOsm/kg (285-295); Potassium 4.7 mmol/L (3.5-5.1); Sodium 140 mmol/L (136-145); Total Bilirubin 0.2 mg/dL (0.15-1.2)
[2024-06-10 20:58] LABS: Acetaminophen < 5.0 ug/mL (10-30); Alcohol Level < 10 mg/dL (0-10); Salicylate < 0.3 mg/dL (3-10)
[2024-06-10 21:02] VITALS: BP 159/76; RESP 16; O2SAT 95
[2024-06-10 21:15] VITALS: BP 147/88; PULSE 68; RESP 16; O2SAT 95
[2024-06-10 21:22] LABS: Amphetamines Screen Urine Negative (Negative); Barbiturates Screen Urine Negative (Negative); Benzodiazepines Screen Urine Negative (Negative); Cocaine Screen Urine Negative (Negative); Opiate Screen Urine Negative (Negative); PCP Screen Urine Negative (Negative); THC Screen Urine Positive (Negative)
[2024-06-10] MEDS: LORazepam 2 mg/mL INJ 1 mL 1 MG IVP (21:38)
[2024-06-10 21:46] VITALS: BP 171/92; PULSE 77; RESP 18; TEMP 36.5; O2SAT 99
[2024-06-10 22:00] VITALS: BP 171/92; PULSE 77; RESP 18; TEMP 36.5; O2SAT 99
[2024-06-10] MEDS: insulin glargine 100 units/1 mL 24 UNIT SUBCUT (23:30)
[2024-06-11 06:00] VITALS: BP 132/65; PULSE 45; RESP 20; TEMP 36.5; O2SAT 98
[2024-06-11 06:25] LABS: Glucose Point of Care 50 mg/dL (70-110)
--- NOTE | 2024-06-11 06:25 | PC.NURSE ---
AT 0625, CNAs REPORTED TO THIS NURSE THAT WHILE THEY WERE GETTING PATIENTS VITAL SIGNES THIS AM, THAT PATIENT COMPLAINED OF FEELING WEAK AND GENERALLY NOT FEELING WELL. THIS NURSE REQUESTED PATIENTS BLOOD SUGAR BE CHECKED WHICH RESULTED OF 50. 240ML ORANGE JUICE WITH SUGAR, AND PEANUT BUTTER CRACKERS GIVEN. WILL RECHECK BLOOD SUGAR AT 0700.
[2024-06-11 07:08] LABS: Glucose Point of Care 121 mg/dL (70-110)
[2024-06-11] MEDS: ferrous sulfate EC 325 mg Tablet PO (08:18)
[2024-06-11] MEDS: metformin 500 mg Tablet 1000 MG PO ×2 (08:18→17:35)
[2024-06-11] MEDS: amlodipine 10 mg Tablet PO (08:18)
[2024-06-11] MEDS: lisinopril 20 mg Tablet 40 MG PO (08:18)
--- NOTE | 2024-06-11 09:29 | PC.NURSE ---
pt up at nurses station requesting another blanket when told there were none available pt became verbally aggressive with staff, yelling I want a a blanket over and over again. attempts to de escalate pt unsuccessful pt then requested to speak with metal extrusion supervisor. while speaking to Dynamite Packing Machine Operator Melodie pt again became verbally aggressive with her yelling he did not care about anyone else he wanted a blanket. pt at that time stated I wanted to leave, we are not helping him and I want to leave!' get my stuff and I want to leave . upon going to pt room to speak with pt about going AMA pt started yelling I want a blanket and a social scientist, I want a blanket and a social scientist ,etc ... pt then stated you are harrassing me because I am not listining to anything you said because I want a blanket and a social scientist! Explained to pt that I was just attempting to give him the fact on the leaving the hospital against medical advice my intent was not to harras him. pt again started yelling. at that time. this heel trimmer left room while pt yelling.
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
[2024-06-11 11:58] LABS: Glucose Point of Care 210 mg/dL (70-110)
[2024-06-11 13:42] VITALS: BP 188/91; PULSE 98; RESP 17; TEMP 37; O2SAT 100
[2024-06-11 17:05] LABS: Glucose Point of Care 98 mg/dL (70-110)
[2024-06-11] MEDS: insulin glargine 100 units/1 mL 24 UNIT SUBCUT (17:35)
[2024-06-11 20:08] LABS: Glucose Point of Care 111 mg/dL (70-110)
[2024-06-11 21:44] VITALS: BP 188/99; PULSE 98; RESP 15; TEMP 36.8; O2SAT 98
[2024-06-12 03:20] LABS: Glucose Point of Care 56 mg/dL (70-110)
[2024-06-12 03:55] LABS: Glucose Point of Care 92 mg/dL (70-110)
[2024-06-12 06:00] VITALS: RESP 15
--- NOTE | 2024-06-12 06:21 | PC.NURSE ---
Patient unable to sleep due to roomates constant disturbances. Patient moved rooms ar 0200. Patient is currently resting in bed respirations 15 wireless telegrapher notified
[2024-06-12 06:54] LABS: Glucose Point of Care 110 mg/dL (70-110)
[2024-06-12 07:57] LABS: Glucose Point of Care 102 mg/dL (70-110)
[2024-06-12] MEDS: ferrous sulfate EC 325 mg Tablet PO (08:35)
[2024-06-12] MEDS: metformin 500 mg Tablet 1000 MG PO ×2 (08:35→17:41)
[2024-06-12] MEDS: amlodipine 10 mg Tablet PO (08:36)
[2024-06-12] MEDS: lisinopril 20 mg Tablet 40 MG PO (08:36)
[2024-06-12] MEDS: buPROPion XL (24 HR) 150 mg Tablet PO (08:36)
[2024-06-12 12:14] LABS: Glucose Point of Care 110 mg/dL (70-110)
[2024-06-12 14:00] VITALS: BP 173/83; PULSE 94; RESP 20; TEMP 37; O2SAT 99
[2024-06-12] MEDS: calcium carbonate 500 mg Chew Tablet 1000 MG PO ×2 (15:37→23:00)
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
[2024-06-12] MEDS: ondansetron 4 MG Tablet PO (16:24)
[2024-06-12 17:35] LABS: Glucose Point of Care 142 mg/dL (70-110)
[2024-06-12] MEDS: insulin glargine 100 units/1 mL 24 UNIT SUBCUT (17:58)
--- NOTE | 2024-06-12 18:36 | PC.NURSE ---
Per patient request, this nurse applied a tegaderm to a lesion on patient's left arm, and a tegaderm to patient's upper left back. Each area was cleanses with normal saline prior to the application of the tegaderms. Patient states that he has a an incurable fungal infection. Dr. Cordero made aware.
[2024-06-12 19:26] VITALS: BP 155/82; PULSE 90; RESP 18; TEMP 36.6; O2SAT 97
[2024-06-12 19:47] LABS: Glucose Point of Care 178 mg/dL (70-110)
[2024-06-12 23:57] LABS: Glucose Point of Care 55 mg/dL (70-110)
--- NOTE | 2024-06-13 00:20 | PC.NURSE ---
Patient came to nurses station C/O light headedness and abnormally sweating. Acc-U-Check revealed Blood sugar = 55 juce and gronola bar given. will recheck in 30 minuets.
--- NOTE | 2024-06-13 00:30 | PC.NURSE ---
recheck of blood sugar = 101. Patient states he feels better. Asymptomatic.
[2024-06-13 00:36] LABS: Glucose Point of Care 101 mg/dL (70-110)
[2024-06-13 04:49] LABS: Glucose Point of Care 69 mg/dL (70-110)
[2024-06-13 04:49] LABS: Glucose Point of Care 47 mg/dL (70-110)
[2024-06-13 05:23] LABS: Glucose Point of Care 95 mg/dL (70-110)
[2024-06-13 06:00] VITALS: BP 156/88; PULSE 96; RESP 16; TEMP 36.7; O2SAT 99
[2024-06-13 08:00] LABS: Glucose Point of Care 124 mg/dL (70-110)
[2024-06-13] MEDS: lisinopril 20 mg Tablet 40 MG PO (08:23)
[2024-06-13] MEDS: metformin 500 mg Tablet 1000 MG PO ×2 (08:23→18:39)
[2024-06-13] MEDS: buPROPion XL (24 HR) 150 mg Tablet PO (08:23)
[2024-06-13] MEDS: amlodipine 10 mg Tablet PO (08:23)
[2024-06-13] MEDS: ferrous sulfate EC 325 mg Tablet PO (08:23)
[2024-06-13 09:11] LABS: Glucose Point of Care 134 mg/dL (70-110)
[2024-06-13] MEDS: XLEAR 1 EACH INHALATION (10:41)
[2024-06-13 11:56] LABS: Glucose Point of Care 103 mg/dL (70-110)
[2024-06-13] MEDS: calcium carbonate 500 mg Chew Tablet 1000 MG PO (12:16)
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
[2024-06-13 14:00] VITALS: BP 173/80; PULSE 102; RESP 16; TEMP 36.6; O2SAT 98
[2024-06-13 17:21] LABS: Glucose Point of Care 155 mg/dL (70-110)
--- NOTE | 2024-06-13 18:12 | PC.NURSE ---
After reviewing patient's blood glucose levels throughout last night and today this RN and Dr. Cordero discussed consulting a hospitalist before administering lantus IM at 1800 to avoid dangerously low glucose levels. Dr. Cordero stated he would consult with a physician and to hold the lantus at this time.
[2024-06-13 19:43] VITALS: BP 186/96; PULSE 98; RESP 18; TEMP 36.6; O2SAT 99
[2024-06-13 20:28] LABS: Glucose Point of Care 208 mg/dL (70-110)
[2024-06-13 22:59] LABS: Glucose Point of Care 141 mg/dL (70-110)
[2024-06-13] MEDS: OLANZapine 5 mg ODT PO (23:00)
[2024-06-14 06:00] VITALS: BP 134/78; PULSE 54; RESP 18; TEMP 36.6; O2SAT 97
[2024-06-14 07:48] LABS: Glucose Point of Care 123 mg/dL (70-110)
[2024-06-14] MEDS: ferrous sulfate EC 325 mg Tablet PO (08:35)
[2024-06-14] MEDS: buPROPion XL (24 HR) 150 mg Tablet PO (08:35)
[2024-06-14] MEDS: lisinopril 20 mg Tablet 40 MG PO (08:36)
[2024-06-14] MEDS: amlodipine 10 mg Tablet PO (08:36)
[2024-06-14] MEDS: metformin 500 mg Tablet 1000 MG PO ×2 (08:38→17:35)
[2024-06-14] MEDS: XLEAR 1 EACH INHALATION ×2 (09:20→17:24)
--- NOTE | 2024-06-14 10:18 | PC.NURSE ---
IN ROOM CONVERSING WITH THIS RN. PT SPOKE AT LENGTH ABOUT HIS MOTHER WHO PASSED THIS YEAR. PT DENIES SI/HI AND AVH AT THIS TIME. PT IS TEARFUL INTERMITTENTLY AND SAD. PT DOES SPEAK ABOUT MOTHER AND MANY MEMORIES AND TALKS ABOUT OLD TIMES ABOUT MOTHER WITH RN. RATES PAIN 8/10 WITH SORES AND LEGS. PT REQUEST IBUPROFEN, RN ASSURED PT THAT IF HE DID NOT HAVE AN ORDER THAN THIS RN WOULD GET ONE. MED NURSE NOTIFIED TO GIVE SOMETHING FOR PAIN. RATES ANXIETY 2/10 AND DEPRESSION 10/10. ALL QUESTIONS ANSWERED AND SUPPORT WAS VOICED
[2024-06-14 11:34] LABS: Glucose Point of Care 144 mg/dL (70-110)
[2024-06-14] MEDS: calcium carbonate 500 mg Chew Tablet 1000 MG PO (11:55)
--- NOTE | 2024-06-14 12:02 | PC.NURSE ---
THIS NURSE NOTED PURULENT DRAINAGE AND NEW ODOR FROM PT OPEN SORE ON RUQ OF LATERAL ABD. PT HAS MULTIPLE OTHER SIMILAR WOUNDS. THIS NURSE SPOKE WITH PHYSICIAN ABOUT CHANGE IN ABD WOUND. PHYSICIAN ORDERED HOSPITALIST CONSULT. THIS NURSE PLACED ORDER AND CONTACTED PHYSICIAN DR. CRAIG AND TRANSFERRED HIM TO DR RIOS.
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
--- NOTE | 2024-06-14 12:37 | P.CONIM_ITS ---
Providers/Reason For Consult 2 Consulting Physician/Specialty*: Vernon Camacho MD, hospitalist Reason for Consult*: Medical management, rash Requesting Physician: Dr. Cordero Attending Physician: Brady Cordero MD Primary Care Provider: Darian Guzman MD History of Present Illness History of Present Illness Joseph Baker is a 59 year old male admitted to the neuropsychiatric unit on June 10 secondary to severe depression. I am being asked to see him for rash, and management of his chronic medical conditions. There is concern he may have an infection of his rash on his right abdomen. Patient reports he has had intermittent lesions on his body for 5+ years. He has not seen a reading instructor here, but did in [place] around 4 years ago and received a diagnosis. He reports what really has helped him is covering the areas, and putting oil on them with THC. He reports they itch, and are painful when touched. Ultimately, the area of scar. He reports overall he is much better than he was 4 years ago and demonstrates by lifting his shirt up showing his extensive scarring on his back. He reports his blood pressure was relatively high at home, and has had some highs here as well. He is getting his medicine consistent now, but reports that he was also taking a consistent at home. He has had lower blood sugars when put on his diabetes regimen. He reports he may have been having low blood sugar at home as well, but does not take his sugar secondary to visual impairment. He reports he has felt bad, lethargic, sweaty at times. Review of Systems 2 General: Reports: 10 or more systems reviewed and unremarkable except in HPI and below Card: Denies: chest pain Resp: Denies: dyspnea Medications/Allergies Home Medications Medication Instructions Recorded Confirmed Last Taken Type blood sugar diagnostic (Blood #300 ea 09/15/22 06/10/24 Unknown Rx Glucose Test strips) blood-glucose meter (Blood Glucose #1 ea 09/15/22 06/10/24 Unknown Rx Monitoring kit) lancets 30 gauge #300 ea 04/27/23 06/10/24 Unknown Rx ferrous sulfate 325 mg (65 mg 325 mg PO DAILY #90 tabs 07/01/23 06/10/24 Unknown Rx iron) tablet lisinopril 40 mg tablet 40 mg PO DAILY #90 tabs 07/01/23 06/10/24 Unknown Rx metformin 1,000 mg tablet 1,000 mg PO BID #180 tabs 07/01/23 06/10/24 Unknown Rx amlodipine 10 mg tablet 10 mg PO DAILY #90 tabs 04/10/24 06/10/24 Unknown Rx insulin glargine 100 unit/mL (3 24 unit (0.24 mL) SUBCUT .QAM 90 05/16/24 06/10/24 Unknown Rx mL) subcutaneous pen (Lantus days #24 mL Solostar U-100 Insulin) pen needle, diabetic 32 gauge x #100 ea 05/16/24 06/10/24 Unknown Rx (BD Ultra-Fine Roz Pen Needle) Allergies Allergy/AdvReac Type Severity Reaction Status Date / Time No Known Allergies Allergy Verified 05/31/24 10:22 Current Medications Generic Name Dose Route Start Last Admin Trade Name Freq PRN Reason Stop Dose Admin Amlodipine Besylate 10 mg 06/11/24 09:00 06/14/24 08:36 Amlodipine 10 Mg Tablet PO 10 mg DAILY EVELIO Administration Bupropion HCl 150 mg 06/12/24 09:00 06/14/24 08:35 Bupropion Xl (24 Hr) 150 Mg Tablet PO 150 mg DAILY EVELIO Administration Calcium Carbonate 1,000 mg 06/12/24 15:22 06/14/24 11:55 Calcium Carbonate 500 Mg Chew Tablet PO 1,000 mg Q4H PRN Administration HEARTBURN Ferrous Sulfate 325 mg 06/11/24 09:00 06/14/24 08:35 Ferrous Sulfate Ec 325 Mg Tablet PO 325 mg DAILY EVELIO Administration Insulin Glargine 24 unit 06/11/24 18:00 06/13/24 18:14 Insulin Glargine 100 Units/1 Ml SUBCUT Not Given QPM [facility] Lisinopril 40 mg 06/11/24 09:00 06/14/24 08:36 Lisinopril 20 Mg Tablet PO 40 mg DAILY EVELIO Administration Metformin HCl 1,000 mg 06/11/24 08:00 06/14/24 08:38 Metformin 500 Mg Tablet PO 1,000 mg BIDWM EVELIO Administration Neomycin/Polymyxin/Bacitracin 1 applic 06/12/24 09:00 06/14/24 08:40 Drvgkvdd-Tuhe-Ysblpcesph Oint 28 Gm TOPICAL Not Given BID [facility] Non-Formulary 1 each 06/13/24 09:15 06/14/24 09:20 Medication (Xlear INHALATION 1 each Nasal [place]) DAILY EVELIO Administration Olanzapine 5 mg 06/10/24 21:46 06/13/24 23:00 Olanzapine 5 Mg Odt PO 5 mg Q4H PRN Administration Agitation/Psychosis Ondansetron HCl 4 mg 06/10/24 21:46 06/12/24 16:24 Ondansetron 4 Mg Tablet PO 4 mg Q6H PRN Administration NAUSEA AND VOMITING PFSH Acute 2 PFSH: Medical History Anemia 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 Social History Smoking and tobacco/nicotine status: never used tobacco/nicotine Alcohol intake: current Alcohol intake frequency: holidays/special occasions only Alcohol type: wine Vitals/I&O/Wt Last Vital Signs Temp 97.9 F 06/14/24 06:00 Pulse 54 L 06/14/24 06:00 Resp 18 06/14/24 06:00 BP 134/78 06/14/24 06:00 Pulse Ox 97 06/14/24 06:00 O2 Del Method Room Air 06/13/24 06:00 Physical Exam 2 Narrative: General exam is a white male, easy to understand and clear with his concerns. HEENT: Atraumatic normocephalic. Oropharynx clear Neck is supple no lymphadenopathy thyromegaly Cardiovascular regular rate and rhythm without murmur, no S3 or S4 Lungs clear Abdomen is soft nontender with positive bowel sounds exam is deferred Extremities no cyanosis clubbing. Trace edema is present bilaterally. Amputated right toe with good healing is noted on the right. Left heel with callus, and some fissuring but no evidence of infection. Skin demonstrates scattered areas of keloid formation, old scar. Some slight erythema to right abdominal punctate lesion that is approximately 7 mm in diameter. Some fibrin in the middle of it. Patient reports new lesions out, and most of them appear somewhat punctate. Neuro: No focal deficits Data 06/10/24 20:26 06/10/24 20:26 Other Labs: Laboratory from admission reviewed as well as blood sugars. He has had some low blood sugars usually in the morning consisting of sugars from 47-69. This morning it was 123 after his long-acting insulin was held. Liver function tests are normal EKG was reviewed demonstrating sinus rhythm, normal axis, essentially normal EKG A&P Assessment and plan (1) Skin lesions, generalized: Patient with skin lesions, varying ages, which he reports has been going on for greater than 5 years. 1 lesion on his right abdomen may be superficially infected. Will initiate mupirocin twice daily. Overall he reports his skin lesions are much better than they have been in the past. As he has had a biopsy in the past, would first ask for his old records to see if a definitive diagnosis has been given. He relates it has. This will certainly guide therapy, without needing another biopsy. Discontinue Neosporin (2) Anemia: Patient had anemia on arrival Check stool Hemoccult Anemia panel. TSH Discontinue ibuprofen (3) Callus of heel: Patient with a callus of his left heel. Moisturizing cream as indicated. Will need podiatry follow-up as an outpatient. Discharge planning should arrange at this for patient on patient discharge. This can also give good follow-up in regards to his previous right toe amputation. (4) Type 2 diabetes mellitus: Patient's last hemoglobin A1c was 6 05/16 He has been having hypoglycemia here when given his long-acting insulin Discontinue long-acting insulin as hypoglycemia is more life-threatening currently. 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 I will continue to follow along with you to make any other changes that are needed tomorrow. I also discussed initial concerns with his primary care provider, Dr. Cordero prior to seeing the patient. Consult Attestations 2 Medical Necessity Statement: As per primary Diagnoses Skin lesions, generalized L98.9 Anemia D64.9 Callus of heel L84 Type 2 diabetes mellitus without complication, with long-term current use of insulin E11.9; Z79.4 Diabetes mellitus intermediate school teacher insulin use: with fdc use Diabetes mellitus complication status: without complication Essential hypertension I10 Time Spent (min) 50
[2024-06-14 13:45] VITALS: BP 157/87; PULSE 99; RESP 17; TEMP 36.7; O2SAT 98
--- NOTE | 2024-06-14 14:05 | PC.NURSE ---
THIS NURSE CONTACTED [facility] TO OBTAIN PT PATHOLOGY RECORDS PER PHYSICIAN ORDER. CURRENTLY AWAITING THEM TO FAX OVER THE INFORMATION.
[2024-06-14 14:48] LABS: Ferritin 60 ng/mL (30-400); Iron 99 ug/dL (59-158); Percent Saturation 32.6 % (20-50); Thyroid Stimulating Hormone 1.85 uIU/mL (0.27-4.20); Total Iron Binding Capacity 303 mcg/dl; Unsaturated Iron Binding 204 ug/dL (112-347); Vitamin B12 240 pg/mL (232-1245)
[2024-06-14 15:00] LABS: Folate Level 11.3 ng/mL (4.5-32.2)
[2024-06-14 17:13] LABS: Glucose Point of Care 157 mg/dL (70-110)
[2024-06-14] MEDS: mupirocin oint 22 gm 1 APPLIC TOPICAL (17:35)
[2024-06-14 20:43] LABS: Glucose Point of Care 198 mg/dL (70-110)
[2024-06-14 20:49] VITALS: BP 162/93; PULSE 111; RESP 17; TEMP 37.6; O2SAT 96
[2024-06-14] MEDS: trazodone 50 mg Tablet PO (21:41)
[2024-06-15 06:00] VITALS: BP 159/88; PULSE 86; RESP 18; TEMP 37.1; O2SAT 96
[2024-06-15 07:34] LABS: Glucose Point of Care 134 mg/dL (70-110)
--- NOTE | 2024-06-15 07:39 | PM.PN ---
Subjective Subjective: No concerns overnight. Records arrived from [place], which included records from [place]. 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 neurodermatitis. We do not have the dermatology notes of the pathology report. I discussed this with him, and he reports it does not ring a murillo. Blood sugars 1 23-1 98 yesterday, 134 this morning. Medications: Reviewed: Yes Vitals/I&O/Wt Last Vital Signs Temp 98.8 F 06/15/24 06:00 Pulse 86 06/15/24 06:00 Resp 18 06/15/24 06:00 BP 159/88 06/15/24 06:00 Pulse Ox 96 06/15/24 06:00 O2 Del Method Room Air 06/15/24 06:00 Physical Exam Narrative: General Exam no distress Skin unchanged Data 06/10/24 20:26 06/10/24 20:26 A&P Assessment and plan (1) Skin lesions, generalized: Patient with skin lesions, varying ages, which he reports has been going on for greater than 5 years. 1 lesion on his right abdomen may be superficially infected. Continue mupirocin twice daily. Overall he reports his skin lesions are much better than they have been in the past. As he has had a biopsy in the past, would first ask for his old records to see if a definitive diagnosis has been given. He relates it has. There is a reference in his [place] records that diagnosis was neurodermatitis. This could be confirmed by obtaining his dermatology records and pathology report. This can be done as an outpatient. (2) Anemia: Patient had anemia on arrival Check stool Hemoccult Anemia panel essentially negative TSH normal Discontinue ibuprofen. Would not recommend anti-inflammatories as an outpatient. (3) Callus of heel: Patient with a callus of his left heel. Moisturizing cream as indicated. Will need podiatry follow-up as an outpatient. Discharge planning should arrange at this for patient on patient discharge. This can also give good follow-up in regards to his previous right toe amputation. (4) Type 2 diabetes mellitus: Patient's last hemoglobin A1c was 6 05/16 He has been having hypoglycemia here when given his long-acting insulin Discontinue long-acting insulin as hypoglycemia is more life-threatening currently. 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 Will sign off at this point. Discharge medication list updated to changes I have made here. Attestations Medical Necessity Statement*: As per primary Diagnoses Skin lesions, generalized L98.9 Anemia D64.9 Callus of heel L84 Type 2 diabetes mellitus without complication, with long-term current use of insulin E11.9; Z79.4 Diabetes mellitus longitudinal float operator insulin use: with longitudinal float operator use Diabetes mellitus complication status: without complication Essential hypertension I10 Time Spent (min) 22
[2024-06-15] MEDS: lisinopril 20 mg Tablet 40 MG PO (08:32)
[2024-06-15] MEDS: metformin 500 mg Tablet 1000 MG PO ×2 (08:33→17:14)
[2024-06-15] MEDS: ferrous sulfate EC 325 mg Tablet PO (08:33)
[2024-06-15] MEDS: hydroCHLOROthiazide 25 mg Tablet PO (08:34)
[2024-06-15] MEDS: amlodipine 10 mg Tablet PO (08:34)
[2024-06-15] MEDS: buPROPion XL (24 HR) 150 mg Tablet PO (08:34)
--- NOTE | 2024-06-15 11:31 | PC.NURSE ---
Patient refused januvina this am. Dr. Camacho made aware.
[2024-06-15 12:59] LABS: Glucose Point of Care 196 mg/dL (70-110)
[2024-06-15] MEDS: calcium carbonate 500 mg Chew Tablet 1000 MG PO ×2 (13:53→17:15)
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
[2024-06-15 14:00] VITALS: BP 157/89; PULSE 107; RESP 16; TEMP 37.1; O2SAT 90
[2024-06-15] MEDS: mupirocin oint 22 gm 1 APPLIC TOPICAL ×3 (16:42→21:58)
--- NOTE | 2024-06-15 16:43 | PC.NURSE ---
This nurse applied mupirocin ointment to wounds located on his right middle abdomen, left upper back, and left arm. Each wound appears to be pink in color, no foul odors smelled. Patient tolerated change well.
[2024-06-15 17:02] LABS: Glucose Point of Care 224 mg/dL (70-110)
[2024-06-15 17:02] LABS: Glucose Point of Care 119 mg/dL (70-110)
--- NOTE | 2024-06-15 18:32 | PC.NURSE ---
Patient's room searched for contraband by staff; no contraband uncovered. patient cooperative with search
[2024-06-15] MEDS: trazodone 50 mg Tablet PO (20:15)
[2024-06-15 20:21] LABS: Glucose Point of Care 155 mg/dL (70-110)
[2024-06-15 21:26] VITALS: BP 171/81; PULSE 113; RESP 18; TEMP 36.7; O2SAT 98
[2024-06-16 00:27] LABS: Glucose Point of Care 128 mg/dL (70-110)
[2024-06-16] MEDS: ibuprofen 600 mg Tablet PO ×3 (00:27→20:39)
[2024-06-16 06:00] VITALS: BP 127/77; PULSE 82; RESP 16; TEMP 36.8; O2SAT 98
[2024-06-16 07:19] LABS: Glucose Point of Care 129 mg/dL (70-110)
[2024-06-16] MEDS: buPROPion XL (24 HR) 150 mg Tablet PO (07:44)
[2024-06-16] MEDS: sitagliptin 100 mg Tablet 50 MG PO (07:44)
[2024-06-16] MEDS: lisinopril 20 mg Tablet 40 MG PO (07:44)
[2024-06-16] MEDS: ferrous sulfate EC 325 mg Tablet PO (07:45)
[2024-06-16] MEDS: hydroCHLOROthiazide 25 mg Tablet PO (07:46)
[2024-06-16] MEDS: amlodipine 10 mg Tablet PO (07:46)
[2024-06-16] MEDS: metformin 500 mg Tablet 1000 MG PO ×2 (07:46→19:37)
[2024-06-16] MEDS: XLEAR 1 EACH INHALATION (09:14)
[2024-06-16] MEDS: mupirocin oint 22 gm 1 APPLIC TOPICAL (09:14)
--- NOTE | 2024-06-16 09:56 | PC.NURSE ---
PT CURRENTLY DENIES SI/HI/AH/VH. PT CURRENTLY ENDORSES ANXIETY RATING IT A 6/10 ON A 0-10 SCALE WHERE 0 IS NONE AND 10 IS THE WORST POSSIBLE. PT CURRENTLY DENIES NEED FOR PRN MEDICATIONS. PT CURRENTLY ENDORSES DEPRESSION RATING IT A 9/10 ON A 0-10 WHERE 0 IS NONE AND 10 IS THE WORST POSSIBLE. PT WAS COOPERATIVE WITH ASSESSMENT AND MEDICATIONS. PT CURRENTLY APPEARS TO BE IN A PLEASANT MOOD. PT SPEECH IS EXCESSIVE. THIS NURSE ASSESSED, CLEANED, AND RE-DRESSED PT WOUNDS. PT WAS COOPERATIVE WITH WOUND DRESSINGS.
[2024-06-16 11:20] LABS: Glucose Point of Care 109 mg/dL (70-110)
[2024-06-16] MEDS: calcium carbonate 500 mg Chew Tablet 1000 MG PO ×2 (12:28→20:39)
[2024-06-16 13:34] VITALS: BP 119/72; PULSE 91; RESP 16; TEMP 36.6; O2SAT 99
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
[2024-06-16 17:09] LABS: Glucose Point of Care 122 mg/dL (70-110)
[2024-06-16 20:22] LABS: Glucose Point of Care 161 mg/dL (70-110)
[2024-06-16 20:59] VITALS: BP 171/82; PULSE 100; RESP 18; TEMP 36.7; O2SAT 97
[2024-06-17 06:00] VITALS: BP 145/87; PULSE 79; RESP 17; TEMP 36.6; O2SAT 96
[2024-06-17 07:34] LABS: Glucose Point of Care 123 mg/dL (70-110)
[2024-06-17] MEDS: ferrous sulfate EC 325 mg Tablet PO (08:21)
[2024-06-17] MEDS: lisinopril 20 mg Tablet 40 MG PO (08:21)
[2024-06-17] MEDS: amlodipine 10 mg Tablet PO (08:21)
[2024-06-17] MEDS: hydroCHLOROthiazide 25 mg Tablet PO (08:21)
[2024-06-17] MEDS: metformin 500 mg Tablet 1000 MG PO ×2 (08:21→17:31)
[2024-06-17] MEDS: buPROPion XL (24 HR) 150 mg Tablet PO (08:21)
[2024-06-17] MEDS: sitagliptin 100 mg Tablet 50 MG PO (08:22)
[2024-06-17] MEDS: XLEAR 1 EACH INHALATION (09:34)
[2024-06-17] MEDS: mupirocin oint 22 gm 1 APPLIC TOPICAL ×2 (09:34→17:31)
[2024-06-17 11:21] LABS: Glucose Point of Care 111 mg/dL (70-110)
[2024-06-17 13:02] VITALS: BP 160/91; PULSE 89; RESP 16; TEMP 36.9; O2SAT 99
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
[2024-06-17] MEDS: ibuprofen 600 mg Tablet PO ×2 (16:37→22:11)
[2024-06-17 17:09] LABS: Glucose Point of Care 128 mg/dL (70-110)
[2024-06-17 20:35] VITALS: BP 166/88; PULSE 103; RESP 18; TEMP 36.7; O2SAT 97
[2024-06-18 06:00] VITALS: BP 146/77; PULSE 87; RESP 18; O2SAT 97
[2024-06-18 07:45] LABS: Glucose Point of Care 115 mg/dL (70-110)
--- NOTE | 2024-06-18 07:51 | P.CONIM_ITS ---
Providers/Reason For Consult 2 Consulting Physician/Specialty*: Rc Angeles.P.M./podiatry Reason for Consult*: Multiple foot complaints Attending Physician: Brady Cordero MD Primary Care Provider: Darian Guzman MD History of Present Illness History of Present Illness Joseph Baker is a 59 year old male who is currently admitted to Neuropsych Unit after presenting to the emergency department complaining of feeling overwhelmed. Patient recently lost his mother and states he is going through a lot of stuff right now. Patient has been established with podiatry. He underwent right hallux amputation for gangrene on 06/28/2023. Patient missed his 6-month follow-up in December of this year. His main complaints at today's visit include contracture of right foot second digit, thickened left hallux nail and fissure on posterior aspect of left heel. Denies any constitutional symptoms. Review of Systems 2 General: Reports: 10 or more systems reviewed and unremarkable except in HPI and below Const: Denies: fever(s), chills, fatigue or malaise Eyes: Denies: change in vision ENMT: Denies: throat pain Card: Reports: swelling of feet/ankles; Denies: chest pain or palpitations Resp: Denies: dyspnea GI: Denies: abdominal pain, nausea or vomiting Musc: Reports: extremity swelling; Denies: limited range of motion Skin/Breast: Reports: dry skin, nail changes and change in hair Neuro: Reports: numbness in extremities and sensory changes Medications/Allergies Home Medications Medication Instructions Recorded Confirmed Last Taken Type blood sugar diagnostic (Blood #300 ea 09/15/22 06/10/24 Unknown Rx Glucose Test strips) blood-glucose meter (Blood Glucose #1 ea 09/15/22 06/10/24 Unknown Rx Monitoring kit) lancets 30 gauge #300 ea 04/27/23 06/10/24 Unknown Rx ferrous sulfate 325 mg (65 mg 325 mg PO DAILY #90 tabs 07/01/23 06/10/24 Unknown Rx iron) tablet lisinopril 40 mg tablet 40 mg PO DAILY #90 tabs 07/01/23 06/10/24 Unknown Rx metformin 1,000 mg tablet 1,000 mg PO BID #180 tabs 07/01/23 06/10/24 Unknown Rx amlodipine 10 mg tablet 10 mg PO DAILY #90 tabs 04/10/24 06/10/24 Unknown Rx insulin glargine 100 unit/mL (3 24 unit (0.24 mL) SUBCUT .QAM 90 05/16/24 06/10/24 Unknown Rx mL) subcutaneous pen (Lantus days #24 mL Solostar U-100 Insulin) pen needle, diabetic 32 gauge x #100 ea 05/16/24 06/10/24 Unknown Rx (BD Ultra-Fine Roz Pen Needle) Allergies Allergy/AdvReac Type Severity Reaction Status Date / Time No Known Allergies Allergy Verified 05/31/24 10:22 Current Medications Generic Name Dose Route Start Last Admin Trade Name Freq PRN Reason Stop Dose Admin Amlodipine Besylate 10 mg 06/11/24 09:00 06/17/24 08:21 Amlodipine 10 Mg Tablet PO 10 mg DAILY EVELIO Administration Bupropion HCl 150 mg 06/12/24 09:00 06/17/24 08:21 Bupropion Xl (24 Hr) 150 Mg Tablet PO 150 mg DAILY EVELIO Administration Calcium Carbonate 1,000 mg 06/12/24 15:22 06/16/24 20:39 Calcium Carbonate 500 Mg Chew Tablet PO 1,000 mg Q4H PRN Administration HEARTBURN Ferrous Sulfate 325 mg 06/11/24 09:00 06/17/24 08:21 Ferrous Sulfate Ec 325 Mg Tablet PO 325 mg DAILY EVELIO Administration Hydrochlorothiazide 25 mg 06/15/24 09:00 06/17/24 08:21 Hydrochlorothiazide 25 Mg Tablet PO 25 mg DAILY EVELIO Administration Ibuprofen 600 mg 06/16/24 00:25 06/17/24 22:11 Ibuprofen 600 Mg Tablet PO 600 mg Q6H PRN Administration MODERATE PAIN Lisinopril 40 mg 06/11/24 09:00 06/17/24 08:21 Lisinopril 20 Mg Tablet PO 40 mg DAILY EVELIO Administration Metformin HCl 1,000 mg 06/11/24 08:00 06/17/24 17:31 Metformin 500 Mg Tablet PO 1,000 mg BIDWM EVELIO Administration Mupirocin 1 applic 06/14/24 18:00 06/17/24 17:31 Mupirocin Oint 22 Gm TOPICAL 1 applic BID EVELIO Administration Non-Formulary 1 each 06/13/24 09:15 06/17/24 09:34 Medication (Xlear INHALATION 1 each Nasal [place]) DAILY EVELIO Administration Olanzapine 5 mg 06/10/24 21:46 06/13/24 23:00 Olanzapine 5 Mg Odt PO 5 mg Q4H PRN Administration Agitation/Psychosis Ondansetron HCl 4 mg 06/10/24 21:46 06/12/24 16:24 Ondansetron 4 Mg Tablet PO 4 mg Q6H PRN Administration NAUSEA AND VOMITING Sitagliptin Phosphate 50 mg 06/15/24 09:00 06/17/24 08:22 Sitagliptin 100 Mg Tablet PO 50 mg DAILY EVELIO Administration Trazodone HCl 50 mg 06/10/24 21:46 06/15/24 20:15 Trazodone 50 Mg Tablet PO 50 mg BEDTIME PRN Administration SLEEP PFSH Acute 2 PFSH: Medical History Anemia 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 Social History Smoking and tobacco/nicotine status: never used tobacco/nicotine Alcohol intake: current Alcohol intake frequency: holidays/special occasions only Alcohol type: wine Vitals/I&O/Wt Last Vital Signs Temp 98.1 F 06/17/24 20:35 Pulse 87 06/18/24 06:00 Resp 18 06/18/24 06:00 BP 146/77 06/18/24 06:00 Pulse Ox 97 06/18/24 06:00 O2 Del Method Room Air 06/17/24 13:02 Weight last 48 hrs Weight 169 lb Physical Exam 2 Narrative: BELOW IS A FOCUSED LOWER EXTREMITY EXAM GENERAL: A&O x 3 VASCULAR: DP/PT pulses diminished +1 with delayed CFT. DERMATOLOGICAL: Left hallux and adjacent second is nails are thickened, dystrophic and discolored. No incurvation or ingrowing edge of the nail. No erythema. Small superficial fissure to posterior aspect of left heel MUSCULOSKELETAL: Ankle joint and hindfoot range of motion within normal limits bilaterally. No tenderness with palpation of medial, lateral or anterior ankle bilaterally. No tenderness with palpation of lateral ankle ligaments bilaterally. No pain with palpation of midfoot bilaterally. 5/5 muscle strength in all 4 quadrants of the lower extremity when tested against resistance. No gross musculoskeletal deformities noted. Status post right hallux amputation. Semirigid PIPJ contracture of right second digit. NEUROLOGICAL: Neurological sensation to the affected foot and ankle is diminished through L4-S1 dermatomes via 10g SWMF, diminished sensation extends proximally to the level of the midfoot Data 06/10/24 20:26 06/10/24 20:26 A&P Assessment and plan (1) Hammertoe of right foot: (2) Callus of heel: (3) Type 2 diabetes mellitus: Qualifiers: Diabetes mellitus longterm insulin use: with termination clerk use Diabetes mellitus complication status: without complication Qualified Code(s): E11.9 - Type 2 diabetes mellitus without complications; Z79.4 - superintendent container terminal (current) use of insulin (4) Onychodystrophy: Plan Patient was seen in the Neuropsych Unit today. Patient has multiple complaints of bilateral feet. These include hammertoe contracture of second digit status post right hallux amputation, onychodystrophy likely attributed to onychomycosis and small superficial crack to posterior left heel. I discussed with patient that he missed his 6-month follow-up in December 2023. Patient states that is difficult for him to see and drive. Plus, he states that he has been going through a lot in his personal life which prevented him from making the appointment. He was concerned about diabetic shoes. I discussed with him that we can order these for him in the outpatient setting. We can also address the nail which she wants removed permanently in the outpatient setting. The posterior left heel callus will heal uneventfully as patient applies moisturizing cream. Recommend patient follow-up with podiatry in 1 to 2 weeks after discharge from hospital. No further intervention by podiatry during this admission. Podiatry will sign off. Please reconsult if needed. Consult Attestations 2 Medical Necessity Statement: See hospitalist note Coding Level of Care Code Acute Code for [facility] Fwd Diagnoses Hammertoe of right foot M20.41 Callus of heel L84 Type 2 diabetes mellitus without complication, with long-term current use of insulin E11.9; Z79.4 Diabetes mellitus longterm insulin use: with longterm use Diabetes mellitus complication status: without complication Onychodystrophy L60.3
[2024-06-18] MEDS: hydroCHLOROthiazide 25 mg Tablet PO (07:52)
[2024-06-18] MEDS: metformin 500 mg Tablet 1000 MG PO (07:52)
[2024-06-18] MEDS: ferrous sulfate EC 325 mg Tablet PO (07:52)
[2024-06-18] MEDS: lisinopril 20 mg Tablet 40 MG PO (07:53)
[2024-06-18] MEDS: buPROPion XL (24 HR) 150 mg Tablet PO (07:53)
[2024-06-18] MEDS: amlodipine 10 mg Tablet PO (07:53)
[2024-06-18] MEDS: nicotine 2 mg Gum BUCCAL (13:04)
[2024-06-18 13:46] VITALS: BP 149/82; PULSE 86; RESP 16; TEMP 36.8; O2SAT 97
--- NOTE | 2024-06-18 14:01 | P.NPUDS_ITS ---
Diagnoses at Discharge Discharge Diagnosis (1) Hammertoe of right foot: Status: Acute (2) Callus of heel: Status: Acute (3) Type 2 diabetes mellitus: Status: Acute Qualifiers: Diabetes mellitus senior care insulin use: with intermediate school teacher use Diabetes mellitus complication status: without complication Qualified Code(s): E11.9 - Type 2 diabetes mellitus without complications; Z79.4 - halfway (current) use of insulin (4) Onychodystrophy: Status: Acute Reason for Visit Reason for Visit: htn Mental Status Exam MSE Comments: This is an obese white male in hospital scrubs with adequate grooming and eye contact. No abnormal movements except for psychomotor retardation. Cooperative with exam in no mild distress. Speech was mostly normal rate and decreased volume. Mood described as depressed, affect congruent and less tearful. Thought process was linear and mostly organized. Thought content: Patient denied suicidal or homicidal ideation, there were no delusions reported or noted, he denied auditory and visual hallucinations. The patient appears to be dealing with depression and anxiety. He is struggling with bereavement following the loss of his mother. He has never had suicidal thoughts or thoughts of violence or aggression against others. He does not report any visual hallucinations. He appears to be resilient and hopeful, despite his current struggles. Attention and concentration were intact and memory appeared mostly reliable but none were formally tested. He is alert and oriented x 3. Insight and judgment limited, impulse control is limited. Discharge Data Studies Completed and Pending: Laboratory Results WBC 7.76 10^3/uL (3.2 9-11.43) 06/10/24 20: RBC 3.45 10^6/uL (3.8 5-5.65) L 06/10/24 20:26 Hgb 10.50 g/dL (11.27 -16.99) L 06/10/24 20:26 Hct 31.5 % (37-53) L 06/10/24 20:26 MCV 91.3 fl (82-101) 06/10/24 20: MCH 30.4 pg (27-33) 06/10/24 20: MCHC 33.3 g/dL (30-55) 06/10/24 20: RDW 13.3 % (12.1-15.1 ) 06/10/24 20:26 Plt Count 318 10^3/cmm (157 -399) 06/10/24 20: MPV 9.5 fL (7.4-10.4) 06/10/24 20: Neut % (Auto) 57.8 % 06/10/24 20: Lymph % (Auto) 28.0 % 06/10/24 20: Blaine % (Auto) 6.8 % 06/10/24 20: Eos % (Auto) 5.8 % 06/10/24 20: Baso % (Auto) 1.5 % 06/10/24 20: Neut # (Auto) 4.48 10^3/uL (1.8 -7.7) 06/10/24 20: Lymph # (Auto) 2.2 10^3/uL (0.8- 4.8) 06/10/24: Blaine # (Auto) 0.5 10^3/uL (0.2- 0.9) 06/10/24 20: Eos # (Auto) 0.5 10^3/uL (0.0- 0.8) 06/10/24 20: Baso # (Auto) 0.1 10^3/uL (0.0- 0.1) 06/10/24 20: Nucleated RBC % (a uto) 0 % 06/10/24: Nucleated RBCs # 0.0 /100WBC 06/10/24 20: Sodium 140 mmol/L (136-1 45) 06/10/24 20: Potassium 4.7 mmol/L (3.5-5 .1) 06/10/24 20: Chloride 103 mmol/L (98-10 7) 06/10/24 20: Carbon Dioxide 25 mmol/L (22-29) 06/10/24 20: Anion Gap 16.7 (5-19) 06/10/24 20: BUN 24 mg/dL (6-20) H 06/10/24 20: Creatinine 1.4 mg/dL (0.7-1. 2) H 06/10/24 20: GFR Calculation 52.2 mL/min (90-1 30) L 06/10/24 20:26 Glucose 144 mg/dL (65-115 ) H 06/10/24 20: POC Glucose 115 mg/dL (70-110 ) H 06/18/24 07:31 Calculated Osmolal ity 297 mOsm/kg (285- 295) H 06/10/24 20:26 Calcium 8.7 mg/dL (8.5-10 .5) 06/10/24 20:26 Iron 99 ug/dL (59-158) 06/14/24 13:35 TIBC 303 mcg/dl 06/14/24 13:35 % Saturation 32.6 % (20-50) 06/14/24 13:35 Unsat Iron Binding 204 ug/dL (112-34 7) 06/14/24 13:35 Ferritin 60 ng/mL (30-400) 06/14/24 13:35 Total Bilirubin 0.2 mg/dL (0.15-1 .2) 06/10/24 20:26 AST 14 U/L (0-40) 06/10/24 20:26 ALT 8 U/L (0-41) 06/10/24 20:26 Alkaline Phosphata se 89 U/L (40-130) 06/10/24 20:26 Total Protein 7.0 g/dL (6.6-8.7 ) 06/10/24 20:26 Albumin 4.0 g/dL (3.5-5.2 ) 06/10/24 20:26 Globulin 3.0 g/dL (1.3-4.6 ) 06/10/24 20:26 Vitamin B12 240 pg/mL (232-12 45) 06/14/24 13:35 Folate 11.3 ng/mL (4.5-3 2.2) 06/14/24 13:35 TSH 1.85 uIU/mL (0.27 -4.20) 06/14/24 13:35 Salicylates < 0.3 mg/dL (3-10 ) L 06/10/24 20:26 Urine Opiates Scre en Negative ng/mL (N egative) 06/10/24 21:01 Acetaminophen < 5.0 ug/mL (10-3 0) L 06/10/24 20:26 Ur Barbiturates Sc reen Negative ng/mL (N egative) 06/10/24 21:01 Ur Phencyclidine S crn Negative ng/mL (N egative) 06/10/24 21:01 Ur Amphetamines Sc reen Negative ng/mL (N egative) 06/10/24 21:01 U Benzodiazepines Scrn Negative ng/mL (N egative) 06/10/24 21:01 Urine Cocaine Scre en Negative ng/mL (N egative) 06/10/24 21:01 U Marijuana (THC) Screen Positive ng/mL (N egative) H 06/10/24 21:01 Ethyl Alcohol < 10 mg/dL (0-10) 06/10/24 20:26 Vitals: Last Vital Signs Temp 98.2 F 06/18/24 13:46 Pulse 86 06/18/24 13:46 Resp 16 06/18/24 13:46 BP 149/82 06/18/24 13:46 Pulse Ox 97 06/18/24 13:46 O2 Del Method Room Air 06/18/24 13:46 Discharge Plan Discharge Patient Disposition: Home Condition: Stable Prescriptions: New bupropion HCl 150 mg Tablet Extended Release 24 Hr 150 mg PO DAILY 30 Days Qty: 30 1RF hydrochlorothiazide 25 mg Tablet 25 mg PO DAILY Qty: 30 0RF Januvia 100 mg Tablet 50 mg PO DAILY Qty: 30 0RF Continued (DME) lancets 30 gauge misc See Rx Instructions .Route Qty: 300 6RF Rx Instructions: As directed to test TID amlodipine 10 mg tablet 10 mg PO DAILY Qty: 90 0RF (DME) Blood Glucose Test Strip See Rx Instructions .Route Qty: 300 3RF Rx Instructions: As directed TO TEST TID (DME) blood-glucose meter [Blood Glucose Monitoring] Kit See Rx Instructions .Route Qty: 1 0RF Rx Instructions: As directed ferrous sulfate 325 mg (65 mg iron) tablet 325 mg PO DAILY Qty: 90 3RF lisinopril 40 mg tablet 40 mg PO DAILY Qty: 90 3RF metformin 1,000 mg tablet 1,000 mg PO BID Qty: 180 3RF (DME) pen needle, diabetic [BD Ultra-Fine Roz Pen Needle] 32 gauge x 5/32 needle See Rx Instructions .Route Qty: 100 3RF Rx Instructions: As directed Discontinued Lantus Solostar U-100 Insulin 100 unit/mL (3 mL) insulin pen 24 unit SUBCUT .QAM 90 Days Qty: 24 3RF Discharge Orders: Discharge Order (Routine); Ordered 06/18/24 Ordered By: Brady Cordero Referrals: [facility] [Outside] - 06/19/24 2:30 pm (Initial appointment ) Darian Guzman MD [Primary Care Provider] - 4-7 days Discharge Diet: Diabetic Discharge Activity: Resume usual activity Patient Instructions: Opioid Safety Activity Restrictions/Additional Instructions: Keep track of blood pressures, twice daily to report your primary care provider. Discontinue Lantus. Januvia has been substituted. Hydrochlorothiazide has been added to your blood pressure medicine regimen Nursing to arrange for podiatry follow-up for history of amputation, left heel callus. Do not take any anti-inflammatories. Follow-up with your primary care provider regarding your anemia and if further workup needs to be performed. Discharge Attestations NPU Time Spent in Discharge Care*: less than 30 min Specific Discharge Activities: Specific discharge activities: educating patient, discussing with case hardener/social workers/dc planners, documenting/other paperwork and evaluating patient/reviewing data Status at Discharge: Cognitive status at discharge: cognitively intact , Behavioral status at discharge: cooperative , Coding Level of Care Code Acute Code for g Fwd Diagnoses Hammertoe of right foot M20.41 Callus of heel L84 Type 2 diabetes mellitus without complication, with long-term current use of insulin E11.9; Z79.4 Diabetes mellitus intermediate school teacher insulin use: with intermediate school teacher use Diabetes mellitus complication status: without complication Onychodystrophy L60.3
--- NOTE | 2024-06-18 14:56 | DCPLANNER ---
IMM was given and explained to pt and a copy was placed in pts file.
[2024-06-18 14:57] VITALS: BP 149/82; PULSE 86; RESP 16; TEMP 36.8; O2SAT 97
[2024-06-19 18:23] LABS: Glucose Point of Care 206 mg/dL (70-110)
== END 2024-06-18 15:49 | disposition home or self-care (01) | DRG 885 ==
LOC: ER 20:16 → NP 21:08
PROVIDERS: Internal Medicine; Admitting Provider Psychiatry & Neurology Psychiatry; Emergency Provider Emergency Medicine; PCP Family Medicine Adult Medicine; Visit Provider Psychiatry & Neurology Psychiatry
DX: F33.9 Major depressive disorder, recurrent, unspecified (principal); Z59.01 Sheltered homelessness; I10 Essential (primary) hypertension; E11.9 Type 2 diabetes mellitus without complications; F43.10 Post-traumatic stress disorder, unspecified; M20.41 Other hammer toe(s) (acquired), right foot; L84 Corns and callosities; L98.9 Disorder of the skin and subcutaneous tissue, unspecified; H53.40 Unspecified visual field defects; L60.3 Nail dystrophy; D64.9 Anemia, unspecified; Z87.891 Personal history of nicotine dependence; Z62.819 Personal history of unspecified abuse in childhood; Z63.4 Disappearance and death of family member; Z79.84 Long term (current) use of oral hypoglycemic drugs; Z79.4 Long term (current) use of insulin
CPT/HCPCS: 36415; 36416; 80053; 80306; 80307; 82274; 82607; 82728; 82746; 82962; 83540; 83550; 84443; 85025; 93005; 96372; 96374; 96375; 97150; 97165; 99285; J1815; J2060; J3490; Q0162

== ENCOUNTER 2024-06-30 01:46 | Emergency (ER) | payer MEDICARE, MEDICAID, SELFPAY ==
[2024-06-30 02:40] VITALS: BP 138/74; PULSE 88; RESP 18; TEMP 36.6; O2SAT 98; BMI 28.2
[2024-06-30 04:12] VITALS: BP 150/82; PULSE 97; RESP 18; O2SAT 93
--- NOTE | 2024-06-30 04:24 | XRR_ITS ---
PROCEDURE INFORMATION: Exam: XR Chest Exam date and time: 06/30/2024 4:31 AM Age: 59 years old Clinical indication: Cough and shortness of breath; Patient HX: Cough with SOB TECHNIQUE: Imaging protocol: Radiologic exam of the chest. Views: 1 view. COMPARISON: CR XR chest 1V [id number] 02/10/2024 4:55 PM FINDINGS: Lungs: Unremarkable. No consolidation. Pleural spaces: Unremarkable. No pleural effusion. No pneumothorax. Heart/Mediastinum: Unremarkable. No cardiomegaly. Bones/joints: Unremarkable. XR/XR chest 1V portable [id number] IMPRESSION: No acute findings.
[2024-06-30] MEDS: doxycycline 100 mg Tablet PO (05:56)
[2024-06-30] MEDS: guaiFENesin 600 mg Tablet PO (05:56)
[2024-06-30 05:57] VITALS: BP 146/72; PULSE 92; RESP 16; O2SAT 96
--- NOTE | 2024-06-30 15:58 | ED_ITS ---
HPI - URI/Sore Throat General: Chief Complaint: Upper Respiratory Infection Stated Complaint: cough Time Seen by Provider: 06/30/24 04:43 History of Present Illness: 59 year old male complaining of upper re spiratory symptoms. He complaints of sinus pain and drainage, with cough and minimal sputum production. He denies fever. He will not let anyone swab his nose he says. He has not taken anything for these symptoms. Related Data Previous Rx's Medication Instructions Recorded blood sugar diagnostic (Blood #300 ea 09/15/22 Glucose Test strips) blood-glucose meter (Blood Glucose #1 ea 09/15/22 Monitoring kit) lancets 30 gauge #300 ea 04/27/23 ferrous sulfate 325 mg (65 mg 325 mg PO DAILY #90 tabs 07/01/23 iron) tablet lisinopril 40 mg tablet 40 mg PO DAILY #90 tabs 07/01/23 amlodipine 10 mg tablet 10 mg PO DAILY #90 tabs 04/10/24 pen needle, diabetic 32 gauge x #100 ea 05/16/24 (BD Ultra-Fine Roz Pen Needle) hydrochlorothiazide 25 mg tablet 25 mg PO DAILY #30 tabs 06/15/24 bupropion HCl 150 mg 24 hr tablet, 150 mg PO DAILY 30 days #30 tabs 06/18/24 extended release metformin 1,000 mg tablet See Rx Instructions .Route 06/22/24 .COMPLEX #180 tabs dextromethorphan-guaifenesin 30 1 tab PO BID PRN cough #20 tabs 06/30/24 mg-600 mg tablet extended [id number] hr (Mucinex DM) doxycycline hyclate 100 mg tablet 100 mg PO BID 7 days #14 tabs 06/30/24 Allergies Allergy/AdvReac Type Severity Reaction Status Date / Time No Known Allergies Allergy Verified 05/31/24 10:22 [facility] ED PFS: Medical History Anemia 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 Social History Smoking and tobacco/nicotine status: never used tobacco/nicotine Alcohol intake: current Alcohol intake frequency: holidays/special occasions only Alcohol type: wine Physical Exam Const: COMMON NORMALS: no acute distress GENERAL APPEARANCE: cooperative; not ill appearing and not frail appearing HENMT: COMMON NORMALS: normocephalic, atraumatic and Normal external nose present HEAD & SCALP: normocephalic and atraumatic FACE & SINUS: normal facial exam and face symmetric NOSE: Normal external nose present Eye: COMMON NORMALS: Equal, round and reactive pupils present and EOMs intact bilaterally PUPIL: Yes Equal, round and reactive pupils present Neck/C-Spine: GENERAL: Yes trachea midline Chest: CHEST: Yes Symmetrical chest wall rise Resp: COMMON NORMALS: normal respiratory effort, No retractions, No use of accessory muscles and clear to auscultation bilaterally AUSCULTATION: clear to auscultation bilaterally Cardio: COMMON NORMALS: regular rate and regular rhythm RATE: regular rate RHYTHM: regular rhythm GI: COMMON NORMALS: Normal to inspection, nondistended, normoactive bowel sounds present Extremity: COMMON NORMALS: no pedal edema Neuro: KATHERIN COMA SCALE: document GCS findings [place] coma scale eye opening: Spontaneous [place] coma scale verbal response: Orientated Katherin coma scale motor response: Obey commands [place] coma scale total score: 15 SENSORY EXAM: Yes extremities (intact) Psych: COMMON NORMALS: speech normal SPEECH: Yes normal speech Skin: COMMON NORMALS: no rashes or lesions noted GENERAL SKIN EXAM: no rashes or lesions noted Course Vital Signs: Vital signs: Vital Signs Temperature 98 F 06/30/24 02:40 Pulse Rate 92 06/30/24 05:57 Respiratory Rate 16 06/30/24 05:57 Blood Pressure 146/72 06/30/24 05:57 Pulse Oximetry 96 06/30/24 05:57 Oxygen Delivery Me thod Room Air 06/30/24 04:12 MDM - URI/Sore Throat Medical Decision Making Vitals are normal. he does not appear ill at all. He requests something for his sinus symptoms. He will not allow screening for viral illness. His chest X-ray is normal. He'll be discharged. Lab Data Radiology Impressions Chest X-Ray 06/30/24 04:24 IMPRESSION: No acute findings. All radiology interpretation(s) finalized by discharge Discharge Plan Discharge Patient Disposition: Home Clinical Impression: Sinusitis Condition: Stable Prescriptions: New Mucinex DM 30-600 mg tablet extended release 12 hr 1 tab PO BID PRN (Reason: cough) Qty: 20 0RF doxycycline hyclate 100 mg tablet 100 mg PO BID 7 Days Qty: 14 0RF No Action (DME) lancets 30 gauge misc See Rx Instructions .Route Qty: 300 6RF Rx Instructions: As directed to test TID amlodipine 10 mg tablet 10 mg PO DAILY Qty: 90 0RF (DME) Blood Glucose Test Strip See Rx Instructions .Route Qty: 300 3RF Rx Instructions: As directed TO TEST TID (DME) blood-glucose meter [Blood Glucose Monitoring] Kit See Rx Instructions .Route Qty: 1 0RF Rx Instructions: As directed ferrous sulfate 325 mg (65 mg iron) tablet 325 mg PO DAILY Qty: 90 3RF lisinopril 40 mg tablet 40 mg PO DAILY Qty: 90 3RF (DME) pen needle, diabetic [BD Ultra-Fine Roz Pen Needle] 32 gauge x 5/32 needle See Rx Instructions .Route Qty: 100 3RF Rx Instructions: As directed metformin 1,000 mg tablet See Rx Instructions .ROUTE .COMPLEX Qty: 180 0RF Dose Instruction: TAKE ONE TABLET BY MOUTH TWICE DAILY Rx Instructions: TAKE ONE TABLET BY MOUTH TWICE DAILY hydrochlorothiazide 25 mg Tablet 25 mg PO DAILY Qty: 30 0RF bupropion HCl 150 mg Tablet Extended Release 24 Hr 150 mg PO DAILY 30 Days Qty: 30 1RF Discharge Orders: Discharge ED (Routine); Ordered 06/30/24 Ordered By: Kalen Bal Referrals: Darian Guzman MD [Primary Care Provider] - 1-3 days Patient Instructions: Sinusitis (ED) Activity Restrictions/Additional Instructions: Medications as directed. See your doctor next week. Return for significant chest pain or shortness of breath despite treatment. Coding Level of Care Code ED Operations Program Manager for Sandro Foster
== END 2024-06-30 05:30 | disposition home or self-care (01) ==
PROVIDERS: Emergency Provider Emergency Medicine; PCP Family Medicine Adult Medicine
DX: J32.9 Chronic sinusitis, unspecified (principal); Z79.84 Long term (current) use of oral hypoglycemic drugs; E11.9 Type 2 diabetes mellitus without complications; I10 Essential (primary) hypertension
CPT/HCPCS: 71045; 99283

== ENCOUNTER → 2024-07-05 11:08 | Outpatient (BNVA) | payer MEDICARE, MEDICAID, SELFPAY | PROVIDERS: PCP Family Medicine Adult Medicine; Visit Provider Podiatrist Foot & Ankle Surgery | DX: L60.3 Nail dystrophy (principal); Z79.4 Long term (current) use of insulin; M20.41 Other hammer toe(s) (acquired), right foot; G62.9 Polyneuropathy, unspecified; E11.42 Type 2 diabetes mellitus with diabetic polyneuropathy; Z79.84 Long term (current) use of oral hypoglycemic drugs | CPT/HCPCS: 11721 ==

== ENCOUNTER → 2024-09-06 12:51 | Outpatient (BNVA) | payer MEDICARE, MEDICAID, SELFPAY | PROVIDERS: PCP Family Medicine Adult Medicine; Visit Provider Podiatrist Foot & Ankle Surgery | DX: L60.3 Nail dystrophy (principal); Z79.4 Long term (current) use of insulin; M20.41 Other hammer toe(s) (acquired), right foot; G62.9 Polyneuropathy, unspecified; E11.42 Type 2 diabetes mellitus with diabetic polyneuropathy; Z79.84 Long term (current) use of oral hypoglycemic drugs | CPT/HCPCS: 11721 ==

== ENCOUNTER 2024-09-12 15:30 | Emergency (ER) | payer MEDICARE, MEDICAID, SELFPAY ==
[2024-09-12 15:31] VITALS: BP 152/80; PULSE 104; RESP 17; TEMP 36.6; O2SAT 94; BMI 32.3
--- NOTE | 2024-09-12 15:33 | CTR_ITS ---
PROCEDURE INFORMATION: Exam: CT Head Without Contrast Exam date and time: 09/12/2024 5:05 PM Age: 59 years old Clinical indication: Other: Seizure; Additional info: New onset seizure TECHNIQUE: Imaging protocol: Computed tomography of the head without contrast. Radiation optimization: All CT scans at this facility use at least one of these dose optimization techniques: automated exposure control; mA and/or kV adjustment per patient size (includes targeted exams where dose is matched to clinical indication); or iterative reconstruction. COMPARISON: No relevant prior studies available. RADIATION DOSE METRICS: Total DLP (mGy-cm): 1030.08 FINDINGS: Brain: Mild diffuse cortical volume loss. Mild hypodensities in supratentorial periventricular and subcortical white matter, consistent with microangiopathy. No intracranial hemorrhage. 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 Cerebral ventricles: No ventriculomegaly. Paranasal sinuses: Visualized sinuses are unremarkable. No fluid levels. Mastoid air cells: Visualized mastoid air cells are well aerated. Orbital cavities: Left cataract surgery. Bones: Unremarkable. No acute fracture. Soft tissues: Unremarkable. Vasculature: No hyperdense artery. CT/CT head wo con* [id number] IMPRESSION: 1. No acute intracranial abnormality. 2. 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
--- NOTE | 2024-09-12 15:39 | ED_ITS ---
HPI - General Adult 2 General: Chief complaint: Seizure Stated complaint: Post seizure Time Seen by Provider: 09/12/24 15:32 History of Present Illness: 59-year-old male presents emergency room with report of a seizure. Patient reports that his seizure lasted 1 minute. Patient is in a independent living setting and has a caregiver with him. Initially arrived he was postictal. No head trauma. No recent medication changes he is not on any antiseizure medications. Associated symptoms: Deny chest pain, dyspnea or rash Related Data Previous Rx's Medication Instructions Recorded blood sugar diagnostic (Blood #300 ea 09/15/22 Glucose Test strips) blood-glucose meter (Blood Glucose #1 ea 09/15/22 Monitoring kit) lancets 30 gauge #300 ea 04/27/23 pen needle, diabetic 32 gauge x #100 ea 05/16/24 (BD Ultra-Fine Roz Pen Needle) dextromethorphan-guaifenesin 30 1 tab PO BID PRN cough #20 tabs 06/30/24 mg-600 mg tablet extended [id number] hr (Mucinex DM) amlodipine 10 mg tablet 10 mg PO DAILY #90 tabs 08/30/24 bupropion HCl 150 mg 24 hr tablet, 150 mg PO DAILY 30 days #30 tabs 08/30/24 extended release diabetic shoes w/ 3 inserts #1 ea 09/06/24 metformin 1,000 mg tablet 500 mg (1/2 x 1,000 mg) PO BID #30 09/12/24 tabs Allergies Allergy/AdvReac Type Severity Reaction Status Date / Time No Known Allergies Allergy Verified 09/06/24 13:04 Review of Systems 2 Const: Denies: fever(s) or chills Card: Denies: chest pain Resp: Denies: dyspnea GI: Denies: abdominal pain : Denies: dysuria, urinary frequency or urinary urgency Musc: Denies: neck pain or back pain Skin/Breast: Denies: rash PFSH ED 2 PFSH: Medical History Psychiatric care Anemia 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 Social History Smoking and tobacco/nicotine status: unknown if used tobacco/nicotine Alcohol intake: current Alcohol intake frequency: holidays/special occasions only Alcohol type: wine Physical Exam 2 Const: COMMON NORMALS: no acute distress GENERAL APPEARANCE: cooperative and comfortable ORIENTATION/CONSCIOUSNESS: Yes awake, Yes oriented to person, Yes oriented to place and Yes oriented to time HENMT: COMMON NORMALS: normocephalic, atraumatic and hearing grossly normal bilaterally HEAD & SCALP: normocephalic and atraumatic Resp: COMMON NORMALS: normal respiratory effort, No retractions, No use of accessory muscles and clear to auscultation bilaterally AUSCULTATION: clear to auscultation bilaterally Cardio: COMMON NORMALS: regular rate, regular rhythm and No murmurs present (Cardio) RATE: regular rate RHYTHM: regular rhythm GI: COMMON NORMALS: Soft to palpation and No hepatosplenomegaly present A USCULTATION: Yes normoactive bowel sounds PALPATION: Yes Soft to palpation, No Tenderness to palpation present (GI), No Guarding due to palpation present (GI) and Yes No hepatosplenomegaly present Extremity: COMMON NORMALS: normal to inspection, capillary refill normal, no clubbing, cyanosis or edema, no calf tenderness and no pedal edema Neuro: SENSORIUM/ORIENTATION: Yes oriented to person, Yes oriented to place and Yes oriented to time Skin: COMMON NORMALS: no rashes or lesions noted GENERAL SKIN EXAM: no rashes or lesions noted Course 2 Vital Signs: Vital signs: Vital Signs Temperature 97.8 F 09/12/24 15:31 Pulse Rate 106 H 09/12/24 18:24 Respiratory Rate 17 09/12/24 15:31 Blood Pressure 151/79 09/12/24 18:24 Pulse Oximetry 95 09/12/24 18:24 Oxygen Delivery Me thod Room Air 09/12/24 15:31 MDM - General Adult Medical Decision Making Patient recovered from the seizures she has not had any further episodes. He is up and ambulatory. Will discharge the patient home and set him up for outpatient EEG and follow-up with neurology. Given this is a single episode will not start antiseizure medications at this time Medical Records I reviewed the patient's medical records. Lab Data I reviewed the patient's lab results. 09/12/24 15:30 09/12/24 15:[address] 09/12/24 15:33 IMPRESSION: 1. No acute intracranial abnormality. 2. 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 Laboratory Results WBC 9.92 10^3/uL (3.29-11.43) 09/12/24 15:30 RBC 3.52 10^6/uL (3.85-5.65) L 09/12/24 15:30 Hgb 10.10 g/dL (11.27-16.99) L 09/12/24 15: Hct 31.1 % (37-53) L 09/12/24 15:30 MCV 88.4 fl (82-101) 09/12/24 15: MCH 28.7 pg (27-33) 09/12/24 15: MCHC 32.5 g/dL (30-55) 09/12/24 15:30 RDW 14.0 % (12.1-15.1) 09/12/24 15:30 Plt Count 369 10^3/cmm (157-399) 09/12/24 15:30 MPV 10.0 fL (7.4-10.4) 09/12/24 15:30 Neut % (Auto) 58.4 % 09/12/24 15:30 Lymph % (Auto) 29.9 % 09/12/24 15:30 [place] % (Auto) 7.4 % 09/12/24 15:30 Eos % (Auto) 3.1 % 09/12/24 15:30 Baso % (Auto) 1.0 % 09/12/24 15:30 Neut # (Auto) 5.79 10^3/uL (1.8-7.7) 09/12/24 15:30 Lymph # (Auto) 3.0 10^3/uL (0.8-4.8) 09/12/24 15:30 [place] # (Auto) 0.7 10^3/uL (0.2-0.9) 09/12/24 15:30 Eos # (Auto) 0.3 10^3/uL (0.0-0.8) 09/12/24 15:30 Baso # (Auto) 0.1 10^3/uL (0.0-0.1) 09/12/24 15:30 Nucleated RBC % (auto) 0 % 09/12/24 15:30 Nucleated RBCs # 0.0 /100WBC 09/12/24 15:30 Sodium 136 mmol/L (136-145) 09/12/24 15:30 Potassium 4.3 mmol/L (3.5-5.1) 09/12/24 15:30 Chloride 99 mmol/L (98-107) 09/12/24 15:30 Carbon Dioxide 18 mmol/L (22-29) L 09/12/24 15:30 Anion Gap 23.3 (5-19) H 09/12/24 15:30 BUN 32 mg/dL (6-20) H 09/12/24 15:30 Creatinine 2.0 mg/dL (0.7-1.2) H 09/12/24 15:30 GFR Calculation 34.6 mL/min (90-130) L 09/12/24 15:30 Glucose 148 mg/dL (65-115) H 09/12/24 15:30 Calculated Osmolality 292 mOsm/kg (285-295) 09/12/24 15:30 Lactic Acid 6.4 mmol/L (0.5-2.2) H* 09/12/24 15:30 Calcium 8.9 mg/dL (8.5-10.5) 09/12/24 15:30 Magnesium 2.0 mg/dL (1.7-2.3) 09/12/24 15:30 Total Bilirubin 0.2 mg/dL (0.15-1.2) 09/12/24 15:30 AST 20 U/L (0-40) 09/12/24 15:30 ALT 11 U/L (0-41) 09/12/24 15:30 Alkaline Phosphatase 84 U/L (40-130) 09/12/24 15:30 Ammonia 35 umol/L (16-60) 09/12/24 15:30 Creatine Kinase 287 U/L (39-308) 09/12/24 15:30 Total Protein 7.5 g/dL (6.6-8.7) 09/12/24 15:30 Albumin 4.4 g/dL (3.5-5.2) 09/12/24 15:30 Globulin 3.1 g/dL (1.3-4.6) 09/12/24 15:30 All radiology interpretation(s) finalized by discharge Discharge Plan Discharge Patient Disposition: Home Clinical Impression: Seizure Condition: Stable Prescriptions: Changed metformin 1,000 mg tablet 500 mg PO BID Qty: 30 0RF Rx Instructions: TAKE ONE TABLET BY MOUTH TWICE DAILY Discontinued hydrochlorothiazide 25 mg tablet 25 mg PO DAILY Qty: 30 0RF lisinopril 40 mg tablet 40 mg PO DAILY Qty: 90 3RF No Action (DME) lancets 30 gauge misc See Rx Instructions .Route Qty: 300 6RF Rx Instructions: As directed to test TID (DME) diabetic shoes w/ 3 inserts See Rx Instructions .Route .MEDSUPPLY Qty: 1 0RF Rx Instructions: As directed by HOME w/Right toe filler (DME) Blood Glucose Test Strip See Rx Instructions .Route Qty: 300 3RF Rx Instructions: As directed TO TEST TID (DME) blood-glucose meter [Blood Glucose Monitoring] Kit See Rx Instructions .Route Qty: 1 0RF Rx Instructions: As directed (DME) pen needle, diabetic [BD Ultra-Fine Roz Pen Needle] 32 gauge x 5/32 needle See Rx Instructions .Route Qty: 100 3RF Rx Instructions: As directed amlodipine 10 mg tablet 10 mg PO DAILY Qty: 90 0RF bupropion HCl 150 mg tablet extended release 24 hr 150 mg PO DAILY 30 Days Qty: 30 1RF Mucinex DM 30-600 mg tablet extended release 12 hr 1 tab PO BID PRN (Reason: cough) Qty: 20 0RF Discharge Orders: Discharge ED (Routine); Ordered 09/12/24 Ordered By: Brian Escudero Referrals: Darian Guzman MD [Primary Care Provider] - Discharge Diet: Usual diet Discharge Activity: Resume usual activity Patient Instructions: Opioid Safety, Pain Management Activity Restrictions/Additional Instructions: Thank you for choosing [facility] for your healthcare needs today. It is very important that you follow up as instructed or that you return to the Emergency Department should you have concerns or if your condition changes or worsens in any way. You are seen in the emergency room after a seizure. Your laboratory test reflected that you most likely did have a seizure you are also noted to have a little bit of anemia. You should follow-up with your primary care doctor within the next 2 weeks to recheck your hemoglobin count. Additionally your kidney function was slightly worsened recommend that you hold your hydrochlorothiazide and your lisinopril you should have your kidney function rechecked within the week at your doctor's office. You should also decrease your metformin to a half a tablet twice a day. Coding Level of Care Code ED Rn Sexual Assault for Sandro Foster
[2024-09-12 16:02] LABS: Basophils # 0.1 10^3/uL (0.0-0.1); Eosinophils # 0.3 10^3/uL (0.0-0.8); Eosinophils % 3.1 %; Hematocrit 31.1 % (37-53); Lymphocytes % 29.9 %; Mean Corpuscular HGB Conc 32.5 g/dL (30-55); Mean Corpuscular Hemoglobin 28.7 pg (27-33); Mean Corpuscular Volume 88.4 fl (82-101); Monocytes # 0.7 10^3/uL (0.2-0.9); Monocytes % 7.4 %; Neutrophils # 5.79 10^3/uL (1.8-7.7); Neutrophils % 58.4 %; Nucleated Red Blood Cells % 0 %; Platelet Count 369 10^3/cmm (157-399); Red Blood Count 3.52 10^6/uL (3.85-5.65); White Blood Count 9.92 10^3/uL (3.29-11.43)
[2024-09-12] MEDS: pantoprazole 40 mg SDV 80 MG IVP (16:02)
[2024-09-12 16:20] LABS: Alanine Aminotransferase 11 U/L (0-41); Albumin Level 4.4 g/dL (3.5-5.2); Alkaline Phosphatase 84 U/L (40-130); Anion Gap 23.3 (5-19); Aspartate Amino Transferase 20 U/L (0-40); Blood Urea Nitrogen 32 mg/dL (6-20); Calcium 8.9 mg/dL (8.5-10.5); Carbon Dioxide 18 mmol/L (22-29); Chloride 99 mmol/L (98-107); Creatine Phosphokinase 287 U/L (39-308); Creatinine Clr Calc Pharmacy 42.9797; Globulin 3.1 g/dL (1.3-4.6); Glomerular Filtration Rate 34.6 mL/min (90-130); Glucose 148 mg/dL (65-115); Osmolality Calculated 292 mOsm/kg (285-295); Potassium 4.3 mmol/L (3.5-5.1); Sodium 136 mmol/L (136-145); Total Bilirubin 0.2 mg/dL (0.15-1.2); Total Protein 7.5 g/dL (6.6-8.7)
[2024-09-12 16:22] LABS: Lactic Sepsis W/Reflex 6.4 mmol/L (0.5-2.2)
[2024-09-12 16:25] LABS: Ammonia 35 umol/L (16-60)
[2024-09-12 17:46] LABS: Reflex Lactate Order REFLEX LACTIC ORDERD
[2024-09-12 18:24] VITALS: BP 151/79; PULSE 106; O2SAT 95
--- NOTE | 2024-09-14 02:47 | DCPLANNER ---
Message sent to Neurology for follow up on new on set seizures-
== END 2024-09-12 18:29 | disposition home or self-care (01) ==
PROVIDERS: Emergency Provider Family Medicine; PCP Family Medicine Adult Medicine
DX: R56.9 Unspecified convulsions (principal); I10 Essential (primary) hypertension
CPT/HCPCS: 70450; 80053; 82140; 82550; 83605; 83735; 85025; 96374; 99285; J2470

== ENCOUNTER 2024-09-27 17:30 | Emergency (ER) | payer MEDICARE, MEDICAID, SELFPAY ==
--- NOTE | 2024-09-27 17:31 | XRR_ITS ---
PROCEDURE INFORMATION: Exam: XR Chest Exam date and time: 09/27/2024 5:45 PM Age: 59 years old Clinical indication: Chest wall pain; Additional info: Weakness TECHNIQUE: Imaging protocol: Radiologic exam of the chest. Views: 1 view. COMPARISON: CR XR chest 1V portable [id number] 06/30/2024 4:31 AM FINDINGS: Lungs: No consolidation. Pleural spaces: No large pleural effusion. No pneumothorax. Heart/Mediastinum: Unremarkable. No cardiomegaly. Bones/joints: No acute abnormality. XR/XR chest 1V portable [id number] IMPRESSION: No acute findings.
--- NOTE | 2024-09-27 17:34 | XRR_ITS ---
PROCEDURE INFORMATION: Exam: XR Right Shoulder Exam date and time: 09/27/2024 5:45 PM Age: 59 years old Clinical indication: Pain; Shoulder; Right; Additional info: Fall TECHNIQUE: Imaging protocol: Radiologic exam of the right shoulder. Views: 2 or more views. COMPARISON: CR (CHEST, ) 09/27/2024 5:45 PM FINDINGS: Bones/joints: No acute fracture or dislocation. Moderate acromioclavicular and mild glenohumeral osteoarthritis. Soft tissues: Unremarkable. XR/XR shoulder RT min 2V* [id number] IMPRESSION: No acute fracture or dislocation.
--- NOTE | 2024-09-27 17:37 | ED_ITS ---
HPI - General Adult 2 General: Chief complaint: Weakness Stated complaint: genarlized weaknesss, shoulder pain Time Seen by Provider: 09/27/24 17:31 Source: patient and EMS Mode of arrival: EMS Limitations: no limitations History of Present Illness: 59-year-old male who states that he has been having right shoulder pain he states has been going on for weeks he had a syncopal event 2 weeks ago was seen here and states he thinks he may have hit his shoulder as he had been having shoulder pain he had a CT head done that was normal he states that he is also just felt weak and not right since then. He is hypertensive he states that he is always hypertensive. He denies any chest pain he is ambulatory here no focal deficits Associated symptoms: Deny chest pain, dyspnea, headache(s), nausea, rash or vomiting Related Data Home Medications Medication Instructions Recorded Confirmed lisinopril 40 mg tablet mg 09/27/24 Previous Rx's Medication Instructions Recorded blood sugar diagnostic (Blood #300 ea 09/15/22 Glucose Test strips) blood-glucose meter (Blood Glucose #1 ea 09/15/22 Monitoring kit) lancets 30 gauge #300 ea 04/27/23 pen needle, diabetic 32 gauge x #100 ea 05/16/24 (BD Ultra-Fine Roz Pen Needle) dextromethorphan-guaifenesin 30 1 tab PO BID PRN cough #20 tabs 06/30/24 mg-600 mg tablet extended vfnaisp14 hr (Mucinex DM) amlodipine 10 mg tablet 10 mg PO DAILY #90 tabs 08/30/24 bupropion HCl 150 mg 24 hr tablet, 150 mg PO DAILY 30 days #30 tabs 08/30/24 extended release diabetic shoes w/ 3 inserts #1 ea 09/06/24 metformin 1,000 mg tablet 500 mg (1/2 x 1,000 mg) PO BID #30 09/12/24 tabs metoprolol succinate 50 mg 50 mg PO DAILY #30 tabs 09/27/24 tablet,extended release 24 hr naproxen 500 mg tablet (Naprosyn) 500 mg PO BID PRN pain #20 tabs 09/27/24 Allergies Allergy/AdvReac Type Severity Reaction Status Date / Time No Known Allergies Allergy Verified 09/27/24 17:39 Review of Systems 2 Const: Denies: fever(s), chills, body aches or change in appetite Eyes: Denies: blurry vision or eye discomfort ENMT: Denies: throat pain or dental pain Card: Denies: chest pain Resp: Denies: dyspnea GI: Denies: abdominal pain, nausea, vomiting or diarrhea Musc: Reports: extremity pain; Denies: neck pain or back pain Skin/Breast: Denies: rash Neuro: Denies: headache(s) PFSH ED 2 PFSH: Medical History Psychiatric care Anemia 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 Social History Smoking and tobacco/nicotine status: unknown if used tobacco/nicotine Alcohol intake: current Alcohol intake frequency: holidays/special occasions only Alcohol type: wine Physical Exam 2 Const: COMMON NORMALS: no acute distress, patient oriented x3 and healthy appearing HENMT: COMMON NORMALS: normocephalic and atraumatic HEAD & SCALP: n ormocephalic and atraumatic Eye: COMMON NORMALS: Equal, round and reactive pupils present and EOMs intact bilaterally PUPIL: Yes Equal, round and reactive pupils present Neck/C-Spine: COMMON NORMALS: full ROM and supple Chest: COMMONS NORMALS: normal inspection of the chest and normal palpation of entire chest wall Resp: COMMON NORMALS: normal respiratory effort, No retractions, No use of accessory muscles and clear to auscultation bilaterally AUSCULTATION: clear to auscultation bilaterally Cardio: COMMON NORMALS: regular rate, regular rhythm and No murmurs present (Cardio) RATE: regular rate RHYTHM: regular rhythm GI: COMMON NORMALS: Normal to inspection, nondistended, normoactive bowel sounds present, Soft to palpation, non-tender and no masses PALPATION: Yes Soft to palpation Extremity: COMMON NORMALS: normal to inspection and full ROM Neuro: COMMON NORMALS: patient oriented x3, moves all extremities and no focal motor deficits Psych: COMMON NORMALS: mental status grossly normal, Normal thought process present and cooperative THOUGHT PROCESS: Normal thought process present Skin: COMMON NORMALS: no rashes or lesions noted and no wounds GENERAL SKIN EXAM: no rashes or lesions noted Course 2 Vital Signs: Vital signs: Vital Signs Temperature 98.6 F 09/27/24 17:38 Pulse Rate 71 09/27/24 18:36 Respiratory Rate 17 09/27/24 18:36 Blood Pressure 132/71 09/27/24 18:36 Pulse Oximetry 100 09/27/24 18:36 Oxygen Delivery Me thod Room Air 09/27/24 18:36 MDM - General Adult Medical Decision Making Patient presents with right shoulder pain also with generalized weakness x-ray of her shoulder here is negative and here was 3.0 he is also hypertensive we will start him on metoprolol we will get him follow-up with orthopedics for his shoulder pain he is follow-up with his PCP for his hypertension and to recheck his creatinine level. At discharge patient became upset stating he needed stronger pain meds for home explained to him his x-ray here was negative not going to write him hydrocodone for his pain and he was upset with that I explained to him that he needs needs a follow-up with orthopedics and he can take ibuprofen and Tylenol. Medical Records I reviewed the patient's medical records. Lab Data I reviewed the patient's lab results. 09/27/24 17:41 09/27/24 17:41 Laboratory Results WBC 9.67 10^3/uL (3.29-11.43) 09/27/24 17:41 RBC 3.34 10^6/uL (3.85-5.65) L 09/27/24 17:41 Hgb 9.80 g/dL (11.27-16.99) L 09/27/24 17:41 Hct 29.3 % (37-53) L 09/27/24 17:41 MCV 87.7 fl (82-101) 09/27/24 17:41 MCH 29.3 pg (27-33) 09/27/24 17:41 MCHC 33.4 g/dL (30-55) 09/27/24 17:41 RDW 14.6 % (12.1-15.1) 09/27/24 17:41 Plt Count 264 10^3/cmm (157-399) 09/27/24 17:41 MPV 10.2 fL (7.4-10.4) 09/27/24 17:41 Neut % (Auto) 74.7 % 09/27/24 17:41 Lymph % (Auto) 15.2 % 09/27/24 17:41 [place] % (Auto) 5.9 % 09/27/24 17:41 Eos % (Auto) 3.4 % 09/27/24 17:41 Baso % (Auto) 0.5 % 09/27/24 17:41 Neut # (Auto) 7.22 10^3/uL (1.8-7.7) 09/27/24 17:41 Lymph # (Auto) 1.5 10^3/uL (0.8-4.8) 09/27/24 17:41 [place] # (Auto) 0.6 10^3/uL (0.2-0.9) 09/27/24 17:41 Eos # (Auto) 0.3 10^3/uL (0.0-0.8) 09/27/24 17:41 Baso # (Auto) 0.1 10^3/uL (0.0-0.1) 09/27/24 17:41 Nucleated RBC % (auto) 0 % 09/27/24 17:41 Nucleated RBCs # 0.0 /100WBC 09/27/24 17:41 Sodium 135 mmol/L (136-145) L 09/27/24 17:41 Potassium 3.8 mmol/L (3.5-5.1) 09/27/24 17:41 Chloride 98 mmol/L (98-107) 09/27/24 17:41 Carbon Dioxide 23 mmol/L (22-29) 09/27/24 17:41 Anion Gap 17.8 (5-19) 09/27/24 17:41 BUN 36 mg/dL (6-20) H 09/27/24 17:41 Creatinine 3.0 mg/dL (0.7-1.2) H 09/27/24 17:41 GFR Calculation 21.7 mL/min (90-130) L 09/27/24 17:41 Glucose 198 mg/dL (65-115) H 09/27/24 17:41 POC Glucose 219 mg/dL (70-110) H 09/27/24 17:56 Calculated Osmolality 294 mOsm/kg (285-295) 09/27/24 17:41 Calcium 8.9 mg/dL (8.5-10.5) 09/27/24 17:41 Total Bilirubin 0.2 mg/dL (0.15-1.2) 09/27/24 17:41 AST 23 U/L (0-40) 09/27/24 17:41 ALT 13 U/L (0-41) 09/27/24 17:41 Alkaline Phosphatase 85 U/L (40-130) 09/27/24 17:41 Total Protein 6.8 g/dL (6.6-8.7) 09/27/24 17:41 Albumin 4.1 g/dL (3.5-5.2) 09/27/24 17:41 Globulin 2.7 g/dL (1.3-4.6) 09/27/24 17:41 TSH 1.08 uIU/mL (0.27-4.20) 09/27/24 17:41 Urine Color Yellow (Yellow) 09/27/24 17:57 Urine Appearance Clear (CLEAR) 09/27/24 17:57 Urine pH 5.5 (5-7) 09/27/24 17:57 Ur Specific [place] 1.020 (1.005-1.030) 09/27/24 17:57 Urine Protein 4+ (Negative) A 09/27/24 17:57 Urine Glucose (UA) 1+ (Normal) H 09/27/24 17:57 Urine Ketones Negative (Negative) 09/27/24 17:57 Urine Blood 2+ (Negative) A 09/27/24 17:57 Urine Nitrate Negative (Negative) 09/27/24 17:57 Urine Bilirubin Negative (Negative) 09/27/24 17:57 Urine Urobilinogen 0.2 mg/dL (Negative) 09/27/24 17:57 Ur Leukocyte Esterase Negative (Negative) 09/27/24 17:57 Urine RBC 10-15 /hpf (0-2) H 09/27/24 17:57 Urine WBC 0-5 /hpf (0-5) 09/27/24 17:57 Ur Squamous Epith Cells 6-10 /hpf (0-5) 09/27/24 17:57 Amorphous Sediment Not Reportable 09/27/24 17:57 Urine Bacteria None seen /hpf (NONE) 09/27/24 17:57 Hyaline Casts 9.07 /lpf 09/27/24 17:57 Urine Mucus Trace /hpf 09/27/24 17:57 All radiology interpretation(s) finalized by discharge Discharge Plan Discharge Patient Disposition: Home Clinical Impression: Right shoulder strain, Hypertension, Generalized weakness Condition: Stable Prescriptions: New metoprolol succinate 50 mg tablet extended release 24 hr 50 mg PO DAILY Qty: 30 0RF naproxen [Naprosyn] 500 mg tablet 500 mg PO BID PRN (Reason: pain) Qty: 20 0RF No Action (DME) lancets 30 gauge misc See Rx Instructions .Route Qty: 300 6RF Rx Instructions: As directed to test TID (DME) diabetic shoes w/ 3 inserts See Rx Instructions .Route .MEDSUPPLY Qty: 1 0RF Rx Instructions: As directed by HOME w/Right toe filler (DME) Blood Glucose Test Strip See Rx Instructions .Route Qty: 300 3RF Rx Instructions: As directed TO TEST TID (DME) blood-glucose meter [Blood Glucose Monitoring] Kit See Rx Instructions .Route Qty: 1 0RF Rx Instructions: As directed (DME) pen needle, diabetic [BD Ultra-Fine Roz Pen Needle] 32 gauge x 5/32 needle See Rx Instructions .Route Qty: 100 3RF Rx Instructions: As directed amlodipine 10 mg tablet 10 mg PO DAILY Qty: 90 0RF bupropion HCl 150 mg tablet extended release 24 hr 150 mg PO DAILY 30 Days Qty: 30 1RF Mucinex DM 30-600 mg tablet extended release 12 hr 1 tab PO BID PRN (Reason: cough) Qty: 20 0RF metformin 1,000 mg tablet 500 mg PO BID Qty: 30 0RF Rx Instructions: TAKE ONE TABLET BY MOUTH TWICE DAILY lisinopril 40 mg tablet Discharge Orders: Discharge ED (Routine); Ordered 09/27/24 Ordered By: Roxann Mac Referrals: Seamus Rodriguez DO [Physician] - 4-7 days Darian Guzman MD [Primary Care Provider] - Discharge Diet: Advance as tolerated Discharge Activity: Resume usual activity Patient Instructions: Shoulder Sprain (ED), Hypertension (ED) Coding Level of Care Code ED Profile Mill Operator Tape Control for Sandro Foster
[2024-09-27 17:38] VITALS: BP 227/163; PULSE 98; RESP 16; TEMP 37; O2SAT 100
[2024-09-27] MEDS: ondansetron 2 mg/ML SDV 2 mL 4 MG IVP (17:48)
[2024-09-27 17:49] VITALS: RESP 18; O2SAT 100
[2024-09-27] MEDS: morphine 4 mg/mL SDV 1 mL IVP (17:49)
[2024-09-27 17:50] LABS: Basophils # 0.1 10^3/uL (0.0-0.1); Basophils % 0.5 %; Eosinophils # 0.3 10^3/uL (0.0-0.8); Eosinophils % 3.4 %; Hematocrit 29.3 % (37-53); Lymphocytes # 1.5 10^3/uL (0.8-4.8); Lymphocytes % 15.2 %; Mean Corpuscular HGB Conc 33.4 g/dL (30-55); Mean Corpuscular Hemoglobin 29.3 pg (27-33); Mean Corpuscular Volume 87.7 fl (82-101); Mean Platelet Volume 10.2 fL (7.4-10.4); Monocytes # 0.6 10^3/uL (0.2-0.9); Monocytes % 5.9 %; Neutrophils # 7.22 10^3/uL (1.8-7.7); Neutrophils % 74.7 %; Nucleated Red Blood Cells % 0 %; Platelet Count 264 10^3/cmm (157-399); Red Blood Count 3.34 10^6/uL (3.85-5.65); Red Cell Distribution Width 14.6 % (12.1-15.1); White Blood Count 9.67 10^3/uL (3.29-11.43)
--- NOTE | 2024-09-27 18:00 | ECG_ITS ---
[facility]: 2024-09-27 Pat Name: Joseph Baker Department: Room: Gender: Male Domestic Housekeeper: : 1965 Requested By: Roxann Mac Order Number: [id number] Miles MD: Toby Saenz M.D. Measurements Intervals [place] Rate: 93 P: 41 [place]: 150 QRS: 38 QRSD: 72 T: 55 QT: 368 QTc: 458 Interpretive Statements SINUS RHYTHM Compared to ECG 06/10/2024 20:25:35 No significant changes Electronically Signed On 09-30-2024 18:57:33 SLATE MIXER by Toby Saenz M.D. [email or web address]
[2024-09-27] MEDS: labetalol 5 mg/mL SDV 20mL 20 MG IVP (18:02)
[2024-09-27 18:10] LABS: Glucose Point of Care 219 mg/dL (70-110)
[2024-09-27 18:14] LABS: Alanine Aminotransferase 13 U/L (0-41); Albumin Level 4.1 g/dL (3.5-5.2); Alkaline Phosphatase 85 U/L (40-130); Anion Gap 17.8 (5-19); Aspartate Amino Transferase 23 U/L (0-40); Blood Urea Nitrogen 36 mg/dL (6-20); Calcium 8.9 mg/dL (8.5-10.5); Carbon Dioxide 23 mmol/L (22-29); Chloride 98 mmol/L (98-107); Creatinine Clr Calc Pharmacy 28.6531; Globulin 2.7 g/dL (1.3-4.6); Glomerular Filtration Rate 21.7 mL/min (90-130); Glucose 198 mg/dL (65-115); Osmolality Calculated 294 mOsm/kg (285-295); Potassium 3.8 mmol/L (3.5-5.1); Sodium 135 mmol/L (136-145); Thyroid Stimulating Hormone 1.08 uIU/mL (0.27-4.20); Total Bilirubin 0.2 mg/dL (0.15-1.2); Total Protein 6.8 g/dL (6.6-8.7)
[2024-09-27 18:16] LABS: Bilirubin Urine Negative (Negative); Blood Urine 2+ (Negative); Glucose Urine UA 1+ (Normal); Ketones Urine Negative (Negative); Leukocyte Esterase Urine Negative (Negative); Nitrate Urine Negative (Negative); Protein Urine 4+ (Negative); Urine Appearance Clear (CLEAR); Urine Color Yellow (Yellow); Urobilinogen Urine 0.2 mg/dL (Negative); pH Urine 5.5 (5-7)
[2024-09-27 18:21] LABS: Add Urine Microscopic? YES; Bacteria Urine None Seen /hpf; Hyaline Casts Urine 9.07 /lpf; Universal Test for UA Present (0); WBC Urine 0-5 /hpf (0-5)
[2024-09-27 18:36] VITALS: BP 132/71; PULSE 71; RESP 17; O2SAT 100
[2024-09-27 18:38] LABS: Add Urine Culture? No; Mucus Urine TRACE /hpf
[2024-09-27] MEDS: sodium chloride 0.9% 1,000 ML 999 ML IV (18:41)
--- NOTE | 2024-09-27 19:30 | DCPLANNER ---
messaged ortho for er f/u
--- NOTE | 2024-09-27 20:26 | PC.NURSE ---
Pt requesting pain medication for his shoulder pain. Dr Og asked about pain meds for home and instructed to tell the patient to just take otc tylenol and motrin for pain. Pt notified and stated, fuck that. You tell him to get in here and talk to me about this . Provider notified and said he would send Naprosyn to the pharmacy. Pt again notified and tells me, this is bullshit. I have real pain and I don't take narcotics but I need something. You get that Doctor in this room. Estefania notified and sent to talk with patient. Per dr og order- send 2 po tabs of [employer] home with patient. Pt given instructions that he can take 1 tab Q 6 hrs prn severe pain. Pt tells me that he will give that Dr a bad review. Pt states, he can trim shit out of his narvaez but can't take care of a patient.
[2024-09-27 20:31] VITALS: BP 155/74; PULSE 82; O2SAT 97
== END 2024-09-27 20:32 | disposition home or self-care (01) ==
PROVIDERS: Emergency Provider Emergency Medicine; PCP Family Medicine Adult Medicine
DX: S46.911A Strain of unspecified muscle, fascia and tendon at shoulder and upper arm level, right arm, initial encounter (principal); I10 Essential (primary) hypertension; R53.1 Weakness; Z79.84 Long term (current) use of oral hypoglycemic drugs; X58.XXXA Exposure to other specified factors, initial encounter
CPT/HCPCS: 36416; 71045; 73030; 80053; 81001; 82962; 84443; 85025; 93005; 96361; 96374; 96375; 99285; J2270; J2405; J3490; J7030

== ENCOUNTER 2024-10-04 23:39 | Inpatient (IN) | payer MEDICARE, MEDICAID, SELFPAY ==
--- NOTE | 2024-10-04 23:41 | XRR_ITS ---
PROCEDURE INFORMATION: Exam: XR Chest Exam date and time: 10/05/2024 12:16 AM Age: 59 years old Clinical indication: Pain; Chest pressure; Additional info: Chest pain TECHNIQUE: Imaging protocol: Radiologic exam of the chest. Views: 1 view. COMPARISON: CR (CHEST, ) 09/27/2024 5:45 PM FINDINGS: Lungs: Unremarkable. No consolidation. Pleural spaces: Unremarkable. No pleural effusion. No pneumothorax. Heart/Mediastinum: Unremarkable. No cardiomegaly. Bones/joints: Unremarkable. XR/XR chest 1V portable [id number] IMPRESSION: No acute findings.
--- NOTE | 2024-10-04 23:41 | ECG_ITS ---
[facility] Date: 2024-10-04 Pat Name: Joseph Baker Department: Room: 264 Gender: Male Line Mover: : 1965 Requested By: Kay Lewis Order Number: [id number] Miles MD: Spike Armstrong M.D. Measurements Intervals [place] Rate: 98 P: 55 DC: 136 QRS: 71 QRSD: 75 T: 67 QT: 366 QTc: 467 Interpretive Statements SINUS RHYTHM WITH OCCASIONAL SUPRAVENTRICULAR PREMATURE COMPLEXES Compared to ECG 09/27/2024 18:00:29 No significant changes Electronically Signed On 10-05-2024 16:57:33 UTILIZATION REVIEW NURSE by Spike Armstrong M.D. [email or web address]
[2024-10-04 23:51] VITALS: BP 191/116; PULSE 96; RESP 18; TEMP 36.4; O2SAT 99; BMI 29.9
[2024-10-04 23:55] LABS: Basophils # 0.1 10^3/uL (0.0-0.1); Basophils % 0.9 %; Eosinophils # 0.3 10^3/uL (0.0-0.8); Eosinophils % 3.3 %; Hematocrit 30.2 % (37-53); Lymphocytes # 2.3 10^3/uL (0.8-4.8); Lymphocytes % 24.4 %; Mean Corpuscular HGB Conc 33.4 g/dL (30-55); Mean Corpuscular Hemoglobin 28.9 pg (27-33); Mean Corpuscular Volume 86.5 fl (82-101); Monocytes # 0.8 10^3/uL (0.2-0.9); Neutrophils # 5.91 10^3/uL (1.8-7.7); Neutrophils % 63.1 %; Nucleated Red Blood Cells % 0 %; Platelet Count 370 10^3/cmm (157-399); Red Blood Count 3.49 10^6/uL (3.85-5.65); Red Cell Distribution Width 14.4 % (12.1-15.1); White Blood Count 9.36 10^3/uL (3.29-11.43)
[2024-10-05] VITALS (22 sets, daily range): BP systolic 137–199; BP diastolic 75–137; PULSE 62–101; RESP 16–21; TEMP 36.2–36.4; O2SAT 93–100
[2024-10-05 00:13] LABS: Lactic Sepsis W/Reflex 0.9 mmol/L (0.5-2.2)
[2024-10-05 00:14] LABS: Troponin(5th) Baseline 159 ng/L (0-15)
[2024-10-05] MEDS: hyDRALAzine 20 mg/mL INJ 1 mL IVP (00:14)
--- NOTE | 2024-10-05 00:16 | ED_ITS ---
HPI - Chest Pain 2 General: Chief Complaint: Chest Pain Stated Complaint: Chest Pain Time Seen by Provider: 10/04/24 23:41 History of Present Illness: 59-year-old man with a history of diabet es and hypertension who presents emergency room with chest pain. He had central chest pain that was new today and when EMS arrived his blood pressure was very elevated. Blood pressure and central chest pain improved with nitroglycerin. However he also complains of pain in his right armpit. He tells me that at some point recently he had been admitted to the hospital and his sugar got down to the 60s and so he decided to take less diabetes medications. No known cardiac history. No cough. No fevers. No abdominal pain. No vomiting Related Data Home Medications Medication Instructions Recorded Confirmed lisinopril 40 mg tablet mg 09/27/24 Previous Rx's Medication Instructions Recorded blood sugar diagnostic (Blood #300 ea 09/15/22 Glucose Test strips) blood-glucose meter (Blood Glucose #1 ea 09/15/22 Monitoring kit) lancets 30 gauge #300 ea 04/27/23 pen needle, diabetic 32 gauge x #100 ea 05/16/24 5/32 (BD Ultra-Fine Roz Pen Needle) dextromethorphan-guaifenesin 30 1 tab PO BID PRN cough #20 tabs 06/30/24 mg-600 mg tablet extended [id number] hr (Mucinex DM) amlodipine 10 mg tablet 10 mg PO DAILY #90 tabs 08/30/24 bupropion HCl 150 mg 24 hr tablet, 150 mg PO DAILY 30 days #30 tabs 08/30/24 extended release diabetic shoes w/ 3 inserts #1 ea 09/06/24 metformin 1,000 mg tablet 500 mg (1/2 x 1,000 mg) PO BID #30 09/12/24 tabs metoprolol succinate 50 mg 50 mg PO DAILY #30 tabs 09/27/24 tablet,extended release 24 hr naproxen 500 mg tablet (Naprosyn) 500 mg PO BID PRN pain #20 tabs 09/27/24 Allergies Allergy/AdvReac Type Severity Reaction Status Date / Time No Known Allergies Allergy Verified 10/04/24 23:54 Review of Systems 2 Narrative: Constitutional symptoms: Negative except as documented in HPI. Skin symptoms: Negative except as documented in HPI. Eye symptoms: Negative except as documented in HPI. ENMT symptoms: Negative except as documented in HPI. Respiratory symptoms: Negative except as documented in HPI. Cardiovascular symptoms: Negative except as documented in HPI. Gastrointestinal symptoms: Negative except as documented in HPI. Genitourinary symptoms: Negative except as documented in HPI. Musculoskeletal symptoms: Negative except as documented in HPI. Neurologic symptoms: Negative except as documented in HPI. Psychiatric symptoms: Negative except as documented in HPI. Endocrine symptoms: Negative except as documented in HPI. 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 Social History Smoking and tobacco/nicotine status: unknown if used tobacco/nicotine Alcohol intake: current Alcohol intake frequency: holidays/special occasions only Alcohol type: wine Physical Exam 2 Narrative: EXAM NARRATIVE: General: Alert, no acute distress. Skin: Warm, dry. Head: Normocephalic, atraumatic. Neck: Supple, trachea midline. Eye: Extraocular movements are intact. Ears, nose, mouth and throat: mucosa moist. Cardiovascular: Regular, Normal peripheral perfusion. Respiratory: Lungs are clear to auscultation, respirations are non-labored, breath sounds are equal, Symmetrical chest wall expansion. Gastrointestinal: Soft, Nontender, Non distended Musculoskeletal: Normal ROM, no deformity. Neurological: Alert and oriented, No focal neurological deficit observed. Psychiatric: Cooperative, patient has quite labile emotions, tearful quite frequently Course 2 Vital Signs: Vital signs: Vital Signs Temperature 97.6 F 10/04/24 23:51 Pulse Rate 92 10/05/24 00:12 Respiratory Rate 21 H 10/05/24 01:27 Blood Pressure 195/137 10/05/24 00:12 Pulse Oximetry 99 10/05/24 01:27 Oxygen Delivery Me thod Room Air 10/04/24 23:51 MDM - Chest Pain Medical Decision Making Differential diagnosis for patient with chest pain includes but is not limited to and based on the above HPI, review of systems and physical exam: Pneumonia. unstable angina. angina. Acute coronary syndrome / CA. Pulmonary embolism. Costochondritis / musculoskeletal. Pleurisy. Pericarditis. Esophageal spasm. Pancreatis. Cholecystitis. Orders placed to evaluate differential diagnosis based on the above differential, HPI and physical exam EKG: Time 2346. Rate 98. Sinus rhythm, No ST-T changes, PVCs, normal SC & QRS intervals, This was reviewed and interpreted by myself the ER physician at 2350. EKG: Time 1:26 AM. Rate 100. Sinus tachycardia, nonspecific ST-T changes, no ectopy, normal SC & QRS intervals, This was reviewed and interpreted by myself the ER physician at 1:30 AM. No significant changes from previous EKG done today. Chest x-ray: No acute process. No infiltrate. No pneumothorax. This was reviewed and interpreted by myself the emergency room physician. I also reviewed the radiology report. Lab Review: Laboratory results were reviewed and interpreted by myself the emergency room physician. No leukocytosis. Hemoglobin is 10. BUN and creatinine are significantly elevated at 56 and 3.9. Over the last few measurements his creatinine has been elevating. Sugar is elevated at 233. Baseline troponin was 159. Repeat is 151. Is coming down but not a significant delta. CT of the abdomen pelvis: Patient has some nephrolithiasis but no obstructive uropathy. This was reviewed and interpreted by myself the emergency room physician. I also reviewed the radiology report. I reviewed the patient's medical record. Reexamination: Patient remained stable. No increased work of breathing. No altered mental status. No focal motor deficits. Patient has still been quite tearful. He has a dog with him and we have had some difficulty with finding placement for this. He has a friend that is going to come get the dog at 6 AM. So he will sit in the emergency room until that time. Consultation: I spoke with Dr. Hanson who agrees to admission to the hospital. Assessment and plan: Accelerated hypertension Acute renal insufficiency Hyperglycemia Chest pain Elevated troponin ?IV hydralazine in the emergency room -I discussed the patient with the hospitalist on-call who is admitting the patient. - Discussed findings and plan with patient. Answered any questions. - All laboratory values were reviewed and interpreted personally by myself, the ER physician - All imaging was reviewed and interpreted personally by myself, the ER physician. - Evaluation and treatment of this problem were appropriate in the emergency setting Lab Data 10/04/24 23:21 10/04/24 23:21 Radiology Impressions Chest X-Ray 10/04/24 23:41 IMPRESSION: No acute findings. Chest CT 10/05/24 00:39 IMPRESSION: No acute findings. Abdomen/Pelvis CT 10/05/24 00:58 IMPRESSION: Left nephrolithiasis with no evidence of obstructive uropathy. Laboratory Results WBC 9.36 10^3/uL (3.29-11.43) 10/04/24 23:21 RBC 3.49 10^6/uL (3.85-5.65) L 10/04/24 23:21 Hgb 10.10 g/dL (11.27-16.99) L 10/04/24 23:21 Hct 30.2 % (37-53) L 10/04/24 23:21 MCV 86.5 fl (82-101) 10/04/24 23:21 MCH 28.9 pg (27-33) 10/04/24 23:21 MCHC 33.4 g/dL (30-55) 10/04/24 23:21 RDW 14.4 % (12.1-15.1) 10/04/24 23:21 Plt Count 370 10^3/cmm (157-399) 10/04/24 23:21 MPV 10.0 fL (7.4-10.4) 10/04/24 23:21 Neut % (Auto) 63.1 % 10/04/24 23:21 Lymph % (Auto) 24.4 % 10/04/24 23:21 [place] % (Auto) 8.0 % 10/04/24 23:21 Eos % (Auto) 3.3 % 10/04/24 23:21 Baso % (Auto) 0.9 % 10/04/24 23:21 Neut # (Auto) 5.91 10^3/uL (1.8-7.7) 10/04/24 23:21 Lymph # (Auto) 2.3 10^3/uL (0.8-4.8) 10/04/24 23:21 [place] # (Auto) 0.8 10^3/uL (0.2-0.9) 10/04/24 23:21 Eos # (Auto) 0.3 10^3/uL (0.0-0.8) 10/04/24 23:21 Baso # (Auto) 0.1 10^3/uL (0.0-0.1) 10/04/24 23:21 Nucleated RBC % (auto) 0 % 10/04/24 23:21 Nucleated RBCs # 0.0 /100WBC 10/04/24 23:21 D-Dimer 1.02 ug/mLFEU (0-0.59) H 10/04/24 23:21 Sodium 135 mmol/L (136-145) L 10/04/24 23:21 Potassium 3.8 mmol/L (3.5-5.1) 10/04/24 23:21 Chloride 95 mmol/L (98-107) L 10/04/24 23:21 Carbon Dioxide 24 mmol/L (22-29) 10/04/24 23:21 Anion Gap 19.8 (5-19) H 10/04/24 23:21 BUN 56 mg/dL (6-20) H 10/04/24 23:21 Creatinine 3.9 mg/dL (0.7-1.2) H 10/04/24 23:21 GFR Calculation 16.0 mL/min (90-130) L 10/04/24 23:21 Glucose 233 mg/dL (65-115) H 10/04/24 23:21 Calculated Osmolality 303 mOsm/kg (285-295) H 10/04/24 23:21 Lactic Acid 0.9 mmol/L (0.5-2.2) 10/04/24 23:21 Calcium 9.1 mg/dL (8.5-10.5) 10/04/24 23:21 Total Bilirubin 0.2 mg/dL (0.15-1.2) 10/04/24 23:21 AST 22 U/L (0-40) 10/04/24 23:21 ALT 14 U/L (0-41) 10/04/24 23:21 Alkaline Phosphatase 84 U/L (40-130) 10/04/24 23:21 Troponin T Baseline 159 ng/L (0-15) H* 10/04/24 23:21 Troponin T 120 Minute 151.1 ng/L (0-15) H 10/05/24 01:20 Delta Troponin T -7.9 ABS# (0-10) L 10/05/24 01:20 C-Reactive Protein 3.0 mg/L (0.0-4.9) 10/04/24 23:21 NT-Pro-B Natriuret Pep 9899 pg/mL (0-125) H 10/04/24 23:21 Total Protein 6.7 g/dL (6.6-8.7) 10/04/24 23:21 Albumin 4.2 g/dL (3.5-5.2) 10/04/24 23:21 Globulin 2.5 g/dL (1.3-4.6) 10/04/24 23:21 Coronavirus (PCR) Negative (Negative) 10/04/24 23:57 Influenza A (PCR) Negative (Negative) 10/04/24 23:57 Influenza Type B (PCR) Negative (Negative) 10/04/24 23:57 RSV (PCR) Negative (Negative) 10/04/24 23:57 All radiology interpretation(s) finalized by discharge Discharge Plan Discharge Patient Disposition: Admitted As Inpatient Admit Provider: Mariaelena Hanson Clinical Impression: Chest pain, Elevated troponin, Acute renal failure, Hyperglycemia, Accelerated hypertension Condition: Stable Coding Level of Care Code ED Paint Spray Tender for Sandro Foster
[2024-10-05 00:27] LABS: Alanine Aminotransferase 14 U/L (0-41); Albumin Level 4.2 g/dL (3.5-5.2); Alkaline Phosphatase 84 U/L (40-130); Anion Gap 19.8 (5-19); Aspartate Amino Transferase 22 U/L (0-40); Blood Urea Nitrogen 56 mg/dL (6-20); Calcium 9.1 mg/dL (8.5-10.5); Carbon Dioxide 24 mmol/L (22-29); Chloride 95 mmol/L (98-107); Creatinine Clr Calc Pharmacy 20.5605; Globulin 2.5 g/dL (1.3-4.6); Glucose 233 mg/dL (65-115); NT Pro B Type Natriuretic Pept 9899 pg/mL (0-125); Osmolality Calculated 303 mOsm/kg (285-295); Potassium 3.8 mmol/L (3.5-5.1); Sodium 135 mmol/L (136-145); Total Bilirubin 0.2 mg/dL (0.15-1.2); Total Protein 6.7 g/dL (6.6-8.7)
[2024-10-05 00:33] LABS: D Dimer 1.02 ug/mLFEU (0-0.59)
--- NOTE | 2024-10-05 00:39 | CTR_ITS ---
PROCEDURE INFORMATION: Exam: CT Chest Without Contrast; Diagnostic Exam date and time: 10/05/2024 12:53 AM Age: 59 years old Clinical indication: Other: RT chest wall and RT arm pit pain severe for weeks; Additional info: Chest pain TECHNIQUE: Imaging protocol: Diagnostic computed tomography of the chest without contrast. Radiation optimization: All CT scans at this facility use at least one of these dose optimization techniques: automated exposure control; mA and/or kV adjustment per patient size (includes targeted exams where dose is matched to clinical indication); or iterative reconstruction. COMPARISON: CR (CHEST, ) 10/05/2024 12:16 AM RADIATION DOSE METRICS: Total DLP (mGy-cm): 366.63 FINDINGS: Lungs: Small bilateral calcified nodules. No mass or consolidation. Pleural spaces: Unremarkable. No pneumothorax. No pleural effusion. Heart: Unremarkable. No cardiomegaly. No pericardial effusion. Coronary arteries: Mild multivessel coronary artery calcification. Lymph nodes: Unremarkable. No enlarged lymph nodes. Vasculature: Unremarkable. No aortic aneurysm. Bones/joints: No acute fracture. Soft tissues: Unremarkable. CT/CT chest con [id number] IMPRESSION: No acute findings.
[2024-10-05 00:43] LABS: Covid PCR NEGATIVE (Negative); Influenza A NEGATIVE (Negative); Influenza B NEGATIVE (Negative); Respiratory Syncytial Virus Ce NEGATIVE (Negative)
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
--- NOTE | 2024-10-05 00:58 | CTR_ITS ---
PROCEDURE INFORMATION: Exam: CT Abdomen And Pelvis Without Contrast Exam date and time: 10/05/2024 1:01 AM Age: 59 years old Clinical indication: Other: Creat 3.9, decline in the past month; Additional info: Renal failure, R/O obstructive uropathy per hospitalist TECHNIQUE: Imaging protocol: Computed tomography of the abdomen and pelvis without contrast. Radiation optimization: All CT scans at this facility use at least one of these dose optimization techniques: automated exposure control; mA and/or kV adjustment per patient size (includes targeted exams where dose is matched to clinical indication); or iterative reconstruction. COMPARISON: CT chest wo con [id number] 10/05/2024 12:53 AM RADIATION DOSE METRICS: Total DLP (mGy-cm): 721.98 FINDINGS: Liver: Unremarkable. No mass. Gallbladder and biliary ducts: No acute cholecystitis. Pancreas: No findings to suggest acute pancreatitis. Spleen: Unremarkable. No mass. Adrenal glands: Unremarkable. No mass. Kidneys and ureters: 7 mm stone at the superior pole of the left kidney. No hydronephrosis. Stomach and bowel: Moderate colonic stool burden. No significant bowel wall thickening. No bowel obstruction. Mild colonic diverticulosis. Appendix: No evidence of appendicitis. Intraperitoneal space: No free air. No significant fluid collection. Vasculature: No abdominal aortic aneurysm. Lymph nodes: No enlarged lymph nodes. Urinary bladder: Unremarkable as visualized. Reproductive: Mild prostatomegaly. Bones/joints: No acute fracture. No suspicious lesion. Soft tissues: No bowel containing hernia. CT/CT abdomen pelvis wo con [id number] IMPRESSION: Left nephrolithiasis with no evidence of obstructive uropathy.
[2024-10-05] MEDS: ondansetron 2 mg/ML SDV 2 mL 4 MG IVP ×2 (01:25→19:19)
[2024-10-05] MEDS: morphine 4 mg/mL SDV 1 mL IVP (01:27)
--- NOTE | 2024-10-05 01:41 | ECG_ITS ---
[facility] Test Date: 2024-10-05 Pat Name: Joseph Baker Department: Room: Gender: Male Geriatric Nurse: : 1965 Requested By: Kay Lewis Order Number: [id number] Miles MD: Spike Armstrong M.D. Measurements Intervals [place] Rate: 100 P: 50 VT: 129 QRS: 47 QRSD: 74 T: 50 QT: 348 QTc: 450 Interpretive Statements SINUS TACHYCARDIA MODERATE ST DEPRESSION [0.05+ mV ST DEPRESSION] Compared to ECG 09/27/2024 18:00:29 ST (T wave) deviation now present Sinus rhythm no longer present Electronically Signed On 10-05-2024 17:04:59 ROLL OPERATOR by Spike Armstrong M.D. [email or web address]
[2024-10-05 01:58] LABS: Troponin 5 2HR Delta -7.9 ABS# (0-10)
[2024-10-05 01:59] LABS: Troponin 5 2HR 151.1 ng/L (0-15)
--- NOTE | 2024-10-05 03:44 | USCV_ITS ---
Joseph Baker Age: 59 Gender: M : 1965 Exam Date: 10/05/2024 04:14 Ordering Phys: Mariaelena Hanson MD Technologist: ZAID Exam Location: [facility] – [place], [place] Indication: nstemi DM HTN BP: 161 / 85 HR: 94 Rhythm: Sinus Technical Quality: Adequate MEASUREMENTS (Male / Female) Normal Values 2D ECHO LV Diastolic Diameter PLAX 3.1 cm 4.2 - 5.9 / 3.9 - 5.3 cm IVS Diastolic Thickness 1.7 cm 0.6 - 1.0 / 0.6 - 0.9 cm IVS Systolic Thickness 1.8 cm LVPW Diastolic Thickness 1.4 cm 0.6 - 1.0 / 0.6 - 0.9 cm LVPW Systolic Thickness 2.3 cm LVOT Diameter 2.0 cm LV Ejection Fraction 2D Teich 55.7 % LV Ejection Fraction MOD 4C 56.5 % LV Ejection Fraction MOD 2C 55.3 % LV Ejection Fraction 2C AL 54.8 % LA Diameter 4.3 cm Aorta at Sinotubular Diameter 3.0 cm IVC Diameter 2.0 cm M-MODE LA Ao Ratio MM 1.2 AV Cusp Separation MM 2.2 cm DOPPLER AV Peak Velocity 157.0 cm/s LVOT Peak Velocity 119.0 cm/s AV Area Cont Eq vti 3.0 cm squared AV Area Cont Eq pk 2.4 cm squared MV Peak Velocity 141.0 cm/s MV Area PHT 4.3 cm squared Mitral E to A Ratio 0.7 TV Peak E Velocity 47.0 cm/s PV Peak Velocity 143.0 cm/s FINDINGS Left Ventricle Normal left ventricular size and systolic function, EF 55%. Mild concentric left trickle hypertrophy. Minimally thickened mitral valve.Grade I/IV diastolic dysfunction (abnormal relaxation filling pattern), normal to mildly elevated filling pressures. Right Ventricle The right ventricle is normal in size and function. Right Atrium The right atrium is normal in size. Left Atrium The left atrium is normal in size. Mitral Valve Trace mitral valve regurgitation. Aortic Valve Trace aortic valve regurgitation. Tricuspid Valve No gross abnormalities noted Pulmonic Valve No gross abnormalities noted Pericardium Normal pericardium without effusion. Aorta Normal ascending aorta dimension. IVC Normal inferior vena cava. CONCLUSIONS Normal left ventricular size and systolic function, EF 55%. Mild concentric left trickle hypertrophy. Minimally thickened mitral valve.Grade I/IV diastolic dysfunction (abnormal relaxation filling pattern), normal to mildly elevated filling pressures. Trace mitral valve regurgitation. Trace aortic valve regurgitation. AP SP, possibly within normal limits No similar previous studies are available for comparison Dr Spike Armstrong MD [facility] (Electronically Signed) Final Date: 05 October 2024 15:23 S
[2024-10-05 05:18] LABS: Basophils # 0.1 10^3/uL (0.0-0.1); Basophils % 0.7 %; Eosinophils # 0.3 10^3/uL (0.0-0.8); Eosinophils % 2.7 %; Hematocrit 25.9 % (37-53); Lymphocytes # 2.1 10^3/uL (0.8-4.8); Lymphocytes % 20.7 %; Mean Corpuscular HGB Conc 33.2 g/dL (30-55); Mean Corpuscular Hemoglobin 28.9 pg (27-33); Mean Corpuscular Volume 86.9 fl (82-101); Monocytes # 0.7 10^3/uL (0.2-0.9); Monocytes % 6.8 %; Neutrophils # 6.81 10^3/uL (1.8-7.7); Neutrophils % 68.9 %; Nucleated Red Blood Cells % 0 %; Platelet Count 311 10^3/cmm (157-399); Red Blood Count 2.98 10^6/uL (3.85-5.65); Red Cell Distribution Width 14.5 % (12.1-15.1); White Blood Count 9.89 10^3/uL (3.29-11.43)
[2024-10-05] MEDS: clopidogrel 300 mg Tablet PO (05:26)
[2024-10-05 05:32] LABS: Anion Gap 17.7 (5-19); Blood Urea Nitrogen 56 mg/dL (6-20); Calcium 8.5 mg/dL (8.5-10.5); Carbon Dioxide 22 mmol/L (22-29); Chloride 98 mmol/L (98-107); Creatinine Clr Calc Pharmacy 18.8699; Glomerular Filtration Rate 15.6 mL/min (90-130); Glucose 278 mg/dL (65-115); Osmolality Calculated 303 mOsm/kg (285-295); Potassium 3.7 mmol/L (3.5-5.1); Sodium 134 mmol/L (136-145)
[2024-10-05 05:50] LABS: Estmated Average Glucose 163; Hemoglobin A1C 7.3 % (4.0-6.0)
[2024-10-05 05:59] LABS: Partial Thromboplastin Time 33.7 SECONDS (23.9-36.7)
[2024-10-05] MEDS: heparin drip 25,000 UNIT/500 ML PREMIX 20 UNIT IV (06:07)
[2024-10-05] MEDS: heparin 5,000 unit/mL INJ 1 mL IVP ×2 (06:07→21:10)
[2024-10-05 06:13] LABS: Troponin 5 6HR 172.9 ng/L (0-15); Troponin 5 6HR Delta 13.9 ng/L (0-12)
[2024-10-05] MEDS: morphine IR 15 mg Tablet PO ×2 (06:16→21:09)
[2024-10-05 07:11] LABS: Glucose Point of Care 351 mg/dL (70-110)
--- NOTE | 2024-10-05 08:16 | ECG_ITS ---
[facility] Test Date: 2024-10-05 Pat Name: Joseph Baker Department: Room: 264 Gender: Male Personal Lines Account Manager: : 1965 Requested By: Kay Lewis Order Number: [id number] Miles MD: Spike Armstrong M.D. Measurements Intervals [place] Rate: 99 P: 42 NC: 155 QRS: 49 QRSD: 79 T: 71 QT: 383 QTc: 492 Interpretive Statements SINUS RHYTHM WITH OCCASIONAL SUPRAVENTRICULAR PREMATURE COMPLEXES Compared to ECG 10/05/2024 01:26:44 Sinus tachycardia no longer present ST (T wave) deviation no longer present Electronically Signed On 10-05-2024 17:05:06 QUENCHER OPERATOR by Spike Armstrong M.D. [email or web address]
[2024-10-05] MEDS: insulin lispro 100 unit/1 mL SUBCUT ×2 (09:33→17:15)
[2024-10-05] MEDS: amlodipine 10 mg Tablet PO (09:33)
[2024-10-05] MEDS: aspirin 81 mg EC Tablet PO (09:33)
[2024-10-05] MEDS: metoprolol tartrate 25 mg Tablet PO ×2 (09:33→21:09)
[2024-10-05] MEDS: atorvastatin 40 mg Tablet 80 MG PO (09:33)
[2024-10-05] MEDS: hyDRALAzine 10 mg Tablet PO ×3 (09:33→21:09)
[2024-10-05] MEDS: pantoprazole 40 mg SDV IVP ×2 (09:33→17:15)
[2024-10-05] MEDS: clopidogrel 75 mg Tablet PO (09:33)
--- NOTE | 2024-10-05 09:55 | PC.SOCIAL ---
IMM Update pg 2 of IMM Updated and reviewed w/ patient. Copy provided. Copy dated, initialed and placed in chart.
--- NOTE | 2024-10-05 12:01 | PC.PHAR ---
Patient stated he thinks he took his meds a few days ago ,wasn't sure . He just wasn't feeling well .
[2024-10-05 12:31] LABS: Glucose Point of Care 52 mg/dL (70-110)
[2024-10-05 12:31] LABS: Glucose Point of Care 46 mg/dL (70-110)
[2024-10-05 12:48] LABS: Glucose Point of Care 60 mg/dL (70-110)
[2024-10-05 13:04] LABS: Partial Thromboplastin Time 50.2 SECONDS (23.9-36.7)
[2024-10-05] MEDS: dextrose 10% 125 ML 750 ML IV (13:12)
[2024-10-05 15:21] LABS: Glucose Point of Care 135 mg/dL (70-110)
--- NOTE | 2024-10-05 16:08 | P.CONIM_ITS ---
<Statement entered by Mariaelena Stokes MD - 10/05/24 23:27> Patient was evaluated and cared for in conjunction with an advanced practice practitioner. I personally examined the patient and reviewed the chart and all pertinent data including imaging, telemetry, and laboratory results. I discussed the patient in detail with the advanced practice practitioner. Please see their note for complete H&P testing result and agreed upon plan of care for the patient. 59-year-old male with poor historian past medical history significant for uncontrolled hypertension chronic kidney disease presented with what he calls syncope without any chest pain he was noted to have high blood pressure troponin high-sensitivity but elevated in the face of reduced creatinine clearance, currently denies any chest pain no significant ST changes on the EKG suggestive of ischemia. Echocardiogram showed normal ejection fraction no wall motion abnormality occasional PVCs are shown. GENERAL: Patient is alert, awake and oriented x3. HEART: Regular S1 and S2. No murmur, rub or gallop. LUNGS: Clear to auscultate bilaterally. CENTRAL NERVOUS SYSTEM: Grossly nonfocal. EXTREMITIES: Lower extremities with out edema bilaterally. Assessment and plan Elevated cardiac markers Uncontrolled hypertension Questionable syncope PVCs Renal failure Elevated cardiac markers could be demand ischemia in the face of reduced clearance, optimize medication to control blood pressure Stress test before discharge or as an outpatient if patient would not like to stay as he was mentioning. Providers/Reason For Consult 2 Consulting Physician/Specialty*: Mariaelena Stokes MD Reason for Consult*: NSTEMI Requesting Physician: Dr. Hanson Attending Physician: Vernon Lora Primary Care Provider: Darian Guzman MD History of Present Illness History of Present Illness Joseph Baker is a 59 year old male past medical history of hypertension, type 2 diabetes mellitus, right hallux amputation 8/ psychiatric history, CKD baseline creat of around 3. He is a poor historian. He tells me he has had episodes of passing out without chest pain. He does have a hx of recent seizure in which he saught medical care for. In the ER he was hypertensive received antihypertensive regimen. Current BP at 143/85. Previously he was in our ER for shoulder pain. He thought at the time he had passed out and hit it. CT was done. He was hypertensive there as well and started on Metoprolol 50 mg. He was released hoome. He denies any history of significant heart disease. At this time he is telling me he does not have any chest pain. He states that he does not really remember why he came in. He states he is just very tired and cannot remember what initially brought him in. He states he is chest pain-free at this time. Echo today showed EF 55% with no wall motion abnormalities. EKG showed sinus rhythm with occasional PVCs. Medications/Allergies Home Medications Medication Instructions Recorded Confirmed Last Taken Type blood sugar diagnostic (Blood #300 ea 09/15/22 10/05/24 Unknown Rx Glucose Test strips) blood-glucose meter (Blood Glucose #1 ea 09/15/22 10/05/24 Unknown Rx Monitoring kit) lancets 30 gauge #300 ea 04/27/23 10/05/24 Unknown Rx pen needle, diabetic 32 gauge x #100 ea 05/16/24 10/05/24 Unknown Rx 5/32 (BD Ultra-Fine Roz Pen Needle) dextromethorphan-guaifenesin 30 1 tab PO BID PRN cough #20 tabs 06/30/24 10/05/24 Unknown Rx mg-600 mg tablet extended urumpik51 hr (Mucinex DM) amlodipine 10 mg tablet 10 mg PO DAILY #90 tabs 08/30/24 10/05/24 09/12/24 Rx bupropion HCl 150 mg 24 hr tablet, 150 mg PO DAILY 30 days #30 tabs 08/30/24 10/05/24 09/12/24 Rx extended release diabetic shoes w/ 3 inserts #1 ea 09/06/24 10/05/24 Unknown Rx metformin 1,000 mg tablet 500 mg (1/2 x 1,000 mg) PO BID #30 09/12/24 10/05/24 09/12/24 Rx tabs metoprolol succinate 50 mg 50 mg PO DAILY #30 tabs 09/27/24 10/05/24 Unknown Rx tablet,extended release 24 hr naproxen 500 mg tablet (Naprosyn) 500 mg PO BID PRN pain #20 tabs 09/27/24 10/05/24 Unknown Rx lisinopril 40 mg tablet 40 mg PO DAILY 10/05/24 10/05/24 Unknown History Allergies Allergy/AdvReac Type Severity Reaction Status Date / Time No Known Allergies Allergy Verified 10/04/24 23:54 Current Medications Generic Name Dose Route Start Last Admin Trade Name Freq PRN Reason Stop Dose Admin Amlodipine Besylate 10 mg 10/05/24 09:00 10/05/24 09:33 Amlodipine 10 Mg Tablet PO 10 mg DAILY EVELIO Administration Aspirin 81 mg 10/05/24 09:00 10/05/24 09:33 Aspirin 81 Mg Ec Tablet PO 81 mg DAILY EVELIO Administration Atorvastatin Calcium 80 mg 10/05/24 09:00 10/05/24 09:33 Atorvastatin 40 Mg Tablet PO 80 mg DAILY EVELIO Administration Clopidogrel Bisulfate 75 mg 10/05/24 09:00 10/05/24 09:33 Clopidogrel 75 Mg Tablet PO 75 mg DAILY EVELIO Administration Hydralazine HCl 10 mg 10/05/24 09:00 10/05/24 15:40 Hydralazine 10 Mg Tablet PO 10 mg TID EVELIO Administration Dextrose 125 mls @ 750 mls/hr 10/05/24 03:44 10/05/24 13:47 D10w IV Infused PRN PRN Infusion Adult Acute Hypoglycemia Nursing Protocol Protocol Heparin Sodium/Sodium Chloride 25,000 unit in 500 mls @ 0 mls/hr 10/05/24 04:30 10/05/24 13:13 Heparin Drip IV 14.7 unit/kg/hr CONT EVELIO 21 mls/hr Titration Protocol Per Protocol Insulin Human Lispro 0 unit 10/05/24 08:00 10/05/24 11:49 Insulin Lispro 100 Unit/1 Ml SUBCUT Not Given TIDWM [facility] Protocol Metoprolol Tartrate 25 mg 10/05/24 09:00 10/05/24 09:33 Metoprolol Tartrate 25 Mg Tablet PO 25 mg BID@0900,2100 EVELIO Administration Morphine Sulfate 15 mg 10/05/24 03:44 10/05/24 06:16 Morphine Ir 15 Mg Tablet PO 15 mg Q6H PRN Administration MODERATE PAIN Pantoprazole Sodium 40 mg 10/05/24 09:00 10/05/24 09:33 Pantoprazole 40 Mg Sdv IVP 40 mg BID EVELIO Administration PFSH Acute 2 PFSH: Medical History Psychiatric care Anemia 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 Social History Smoking and tobacco/nicotine status: unknown if used tobacco/nicotine Alcohol intake: current Alcohol intake frequency: holidays/special occasions only Alcohol type: wine Vitals/I&O/Wt Last Vital Signs Temp 97.2 F L 10/05/24 16:07 Pulse 62 10/05/24 16:07 Resp 17 10/05/24 16:07 BP 143/85 10/05/24 16:07 Pulse Ox 97 10/05/24 16:07 O2 Del Method Room Air 10/05/24 16:07 10/05/24 10/05/24 10/05/24 06:59 14:59 22:59 Intake Total 0 / 0 607 / 607 Balance 0 / 0 607 / 607 Weight last 48 hrs Weight 157 lb 8 oz Weight 180 lb Physical Exam 2 Narrative: General: No apparent distress, healthy appearing, well nourished HENMT: normoceophalic Muskuloskeletal: Full ROM Lymphatic: no lymphedema noted Respiratory: Normal respiratory effort, clear to auscultation bilaterally throughout all lung oconnell, no use of accessory muscles Cardio: No JVD, regular rate, regular rhythm, S1 S2 normal, no murmurs, peripheral pulses 2+ throughout Extremities: Full ROM, normal, normal capillary refill, no cyanosis or edema Neuro: Alert and oriented x4, seems to have trouble remembering why he came in Psych: Affect normal Skin: warm, normal color Data 10/05/24 05:04 10/05/24 05:04 A&P Assessment and plan (1) Chest pain: (2) Essential hypertension: (3) Hyperlipidemia: Qualifiers: Hyperlipidemia type: mixed hyperlipidemia Qualified Code(s): E78.2 - Mixed hyperlipidemia (4) Elevated troponin: Plan At this time patient shows no evidence of chest pain. He does not remember why he came in. He states he has not had any chest pain in the past. No denies current chest pain at this time. His main previous complaint was shoulder pain. He does have a history of seizures. In previous notes he thinks he may have had a seizure and then hit his shoulder. Previous CTs were negative. He does have acute kidney injury which could cause elevated troponin but acute ischemia is on the differential. Troponin elevated at 159?151.1?172.9. Recommend continue home medication metoprolol 50 mg for high blood pressure, agree with holding lisinopril for now due to HALIE, hydralazine has been added at 10 mg 3 times daily. Pressure is slowly coming down. Echo showed normal EF with no wall motion abnormalities. At this time I recommend continue observing patient. May consider stress test in the near future. At this time, creatinine is elevated with HALIE. No EKG abnormalities. No chest pain at this time. Thank you for allowing us to care for this very pleasant 59 year old gentleman. Consult Attestations 2 Medical Necessity Statement: Deferred to primary Coding Level of Care Code Acute Code for Chg Fwd Diagnoses Chest pain R07.9 Essential hypertension I10 Mixed hyperlipidemia E78.2 Hyperlipidemia type: mixed hyperlipidemia Elevated troponin R79.89
[2024-10-05 16:54] LABS: Glucose Point of Care 202 mg/dL (70-110)
--- NOTE | 2024-10-05 19:28 | PM.PN ---
Subjective Subjective: He is feeling nauseated, had episode of vomiting earlier today. Currently denies chest pain or pressure. Feels generally tired. Could not sleep at night. Vitals/I&O/Wt Last Vital Signs Temp 97.2 F L 10/05/24 16:07 Pulse 62 10/05/24 16:07 Resp 17 10/05/24 16:07 BP 143/85 10/05/24 16:07 Pulse Ox 97 10/05/24 16:07 O2 Del Method Room Air 10/05/24 16:07 10/05/24 10/05/24 10/05/24 06:59 14:59 22:59 Intake Total 0 / 0 607 / 607 Balance 0 / 0 607 / 607 Weight last 48 hrs Weight 71.441 kg Weight 81.647 kg Physical Exam Const: COMMON NORMALS: patient oriented x3 and alert GENERAL APPEARANCE: cooperative ORIENTATION/CONSCIOUSNESS: Yes awake OTHER: Uncomfortable due to nausea HENMT: COMMON NORMALS: oropharynx normal Neck/C-Spine: COMMON NORMALS: no JVD Resp: COMMON NORMALS: normal respiratory effort and clear to auscultation bilaterally AUSCULTATION: clear to auscultation bilaterally Cardio: COMMON NORMALS: no JVD, regular rhythm, S1 normal heart sound present, S2 normal heart sound present and No murmurs present (Cardio) RHYTHM: regular rhythm HEART SOUNDS: S1 normal heart sound present and S2 normal heart sound present GI: COMMON NORMALS: Normal to inspection, nondistended, normoactive bowel sounds present, Soft to palpation and non-tender PALPATION: Yes Soft to palpation Extremity: COMMON NORMALS: no joint enlargement and no pedal edema Neuro: COMMON NORMALS: patient oriented x3 and moves all extremities SENSORIUM/ORIENTATION: Yes alert Skin: COMMON NORMALS: no rashes or lesions noted GENERAL SKIN EXAM: no rashes or lesions noted Data 10/05/24 05:04 10/05/24 05:04 A&P Assessment and plan (1) Complicated bereavement: (2) Accelerated hypertension: (3) Chest pain: (4) Type 2 diabetes mellitus: Qualifiers: Diabetes mellitus correction insulin use: with intermediate accountant use Diabetes mellitus complication status: without complication Qualified Code(s): E11.9 - Type 2 diabetes mellitus without complications; Z79.4 - correction (current) use of insulin (5) Non-STEMI (non-ST elevated myocardial infarction): (6) HALIE (acute kidney injury): Plan Non-STEMI Currently chest pain-free. Echocardiogram pending earlier today, reviewed, with normal ejection fraction. Mild concentric LVH. Grade 1 diastolic dysfunction. Reviewed cardiology note. Continue medical treatment current time with aspirin, Plavix, statin, beta-coco. Blood pressure is being optimized. Currently on heparin drip. Monitor for risk of bleeding. Monitor PTT. Reviewed. Reviewed vitals, CBC, CMP, lactic acid, troponin series, NT proBNP, viral studies. Discussed with nursing, director of casework services. Possible component of gastritis, with nausea, HALIE suspected secondary to NSAID use with naproxen. Continue IV PPI twice daily. Chest pain relieved with nitroglycerin Patient was hypertensive which improved with hydralazine Reviewed echo Right armpit pain I do not see any sign of shingles, musculoskeletal pain? Acute kidney injury: Would discontinue naproxen. Requesting nephrology consult. Creatinine has been gradually getting worse Hold nephrotoxic agents Diabetic control with metformin , A1c reviewed, 7.3. Level was around 6 he has been taken off insulin after hypoglycemic event Acute on chronic anemia likely related to chronic kidney disease: Hemoglobin down to 8.6. Monitor for risk of bleeding. Check Hemoccult. Discontinue NSAIDs. PPI. Full code Consistent carb diet DVT prophylaxis covered with heparin Attestations Medical Necessity Statement*: Continue admission for assessment of management of NSTEMI, worsening HALIE, possible gastritis secondary to NSAID use. Acute on chronic anemia. 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
[2024-10-05 20:46] LABS: Glucose Point of Care 110 mg/dL (70-110)
[2024-10-06] VITALS: BP 121/67; PULSE 69; RESP 17; TEMP 36.4; O2SAT 98
[2024-10-06 03:02] LABS: Basophils # 0.1 10^3/uL (0.0-0.1); Eosinophils # 0.2 10^3/uL (0.0-0.8); Eosinophils % 2.4 %; Hematocrit 25.7 % (37-53); Lymphocytes # 1.5 10^3/uL (0.8-4.8); Lymphocytes % 21.1 %; Mean Corpuscular HGB Conc 31.9 g/dL (30-55); Mean Corpuscular Hemoglobin 29.3 pg (27-33); Mean Corpuscular Volume 91.8 fl (82-101); Mean Platelet Volume 10.1 fL (7.4-10.4); Monocytes # 0.6 10^3/uL (0.2-0.9); Monocytes % 8.5 %; Neutrophils # 4.74 10^3/uL (1.8-7.7); Neutrophils % 66.7 %; Nucleated Red Blood Cells % 0 %; Platelet Count 287 10^3/cmm (157-399); Red Cell Distribution Width 14.7 % (12.1-15.1)
[2024-10-06 03:19] LABS: Magnesium 2.1 mg/dL (1.7-2.3)
[2024-10-06 03:34] LABS: Anion Gap 17.2 (5-19); Blood Urea Nitrogen 57 mg/dL (6-20); Calcium 8.5 mg/dL (8.5-10.5); Carbon Dioxide 20 mmol/L (22-29); Chloride 97 mmol/L (98-107); Creatinine Clr Calc Pharmacy 16.7733; Glomerular Filtration Rate 13.6 mL/min (90-130); Glucose 148 mg/dL (65-115); Osmolality Calculated 289 mOsm/kg (285-295); Partial Thromboplastin Time 158.1 SECONDS (23.9-36.7); Potassium 4.2 mmol/L (3.5-5.1); Sodium 130 mmol/L (136-145)
--- NOTE | 2024-10-06 03:37 | PC.NURSE ---
Notified Dr Hanson via phone call at 0334 of patient's PTT result per protocol. Received orders to turn heparin gtt off for four hours.
[2024-10-06 04:00] VITALS: BP 135/76; PULSE 95; RESP 17; TEMP 36.6; O2SAT 98
[2024-10-06 05:12] VITALS: PULSE 76
[2024-10-06 06:23] LABS: Glucose Point of Care 172 mg/dL (70-110)
[2024-10-06 08:00] VITALS: BP 144/81; PULSE 73; RESP 16; TEMP 36.7; O2SAT 94
[2024-10-06 08:07] LABS: Partial Thromboplastin Time 34.6 SECONDS (23.9-36.7)
[2024-10-06] MEDS: insulin lispro 100 unit/1 mL SUBCUT ×2 (09:06→12:09)
[2024-10-06] MEDS: aspirin 81 mg EC Tablet PO (09:06)
[2024-10-06] MEDS: amlodipine 10 mg Tablet PO (09:06)
[2024-10-06] MEDS: atorvastatin 40 mg Tablet 80 MG PO (09:06)
--- NOTE | 2024-10-06 09:06 | PM.CONSULT ---
Providers/Reason For Consult Consulting Physician/Specialty*: kommana/Nephrology Reason for Consult*: HALIE Attending Physician: Vernon Lora Primary Care Provider: Darian Guzman MD History of Present Illness History of Present Illness Joseph Baker is a 59 year old male Patient is a 59-year-old male with past medical history of hypertension, diabetes, was admitted to the hospital with chest pain. Noted to have elevated troponin and diarrhea and is admitted for NSTEMI. He takes metformin at home for diabetes. He was also taking metoprolol lisinopril and amlodipine for blood pressure control. Patient was taking naproxen 1 to 2 tablets daily for the last 10 days. Creatinine 2.0 about a month ago but has progressively gotten worse to currently at 4.5. Patient currently denies any complaints on room air. No obstruction seen on CT but UA has proteinuria and microscopic hematuria. Also reported Poor PO intake and decreased appetite Review of Systems Narrative: negative Medications/Allergies Home Medications Medication Instructions Recorded Confirmed Last Taken Type blood sugar diagnostic (Blood #300 ea 09/15/22 10/05/24 Unknown Rx Glucose Test strips) blood-glucose meter (Blood Glucose #1 ea 09/15/22 10/05/24 Unknown Rx Monitoring kit) lancets 30 gauge #300 ea 04/27/23 10/05/24 Unknown Rx pen needle, diabetic 32 gauge x #100 ea 05/16/24 10/05/24 Unknown Rx 5/32 (BD Ultra-Fine Roz Pen Needle) dextromethorphan-guaifenesin 30 1 tab PO BID PRN cough #20 tabs 06/30/24 10/05/24 Unknown Rx mg-600 mg tablet extended [id number] hr (Mucinex DM) amlodipine 10 mg tablet 10 mg PO DAILY #90 tabs 08/30/24 10/05/24 09/12/24 Rx bupropion HCl 150 mg 24 hr tablet, 150 mg PO DAILY 30 days #30 tabs 08/30/24 10/05/24 09/12/24 Rx extended release diabetic shoes w/ 3 inserts #1 ea 09/06/24 10/05/24 Unknown Rx metformin 1,000 mg tablet 500 mg (1/2 x 1,000 mg) PO BID #30 09/12/24 10/05/24 09/12/24 Rx tabs metoprolol succinate 50 mg 50 mg PO DAILY #30 tabs 09/27/24 10/05/24 Unknown Rx tablet,extended release 24 hr naproxen 500 mg tablet (Naprosyn) 500 mg PO BID PRN pain #20 tabs 09/27/24 10/05/24 Unknown Rx lisinopril 40 mg tablet 40 mg PO DAILY 10/05/24 10/05/24 Unknown History Allergies Allergy/AdvReac Type Severity Reaction Status Date / Time No Known Allergies Allergy Verified 10/04/24 23:54 Current Medications Generic Name Dose Route Start Last Admin Trade Name Tiara PRN Reason Stop Dose Admin Amlodipine Besylate 10 mg 10/05/24 09:00 10/05/24 09:33 Amlodipine 10 Mg Tablet PO 10 mg DAILY EVELIO Administration Aspirin 81 mg 10/05/24 09:00 10/05/24 09:33 Aspirin 81 Mg Ec Tablet PO 81 mg DAILY EVELIO Administration Atorvastatin Calcium 80 mg 10/05/24 09:00 10/05/24 09:33 Atorvastatin 40 Mg Tablet PO 80 mg DAILY EVELIO Administration Clopidogrel Bisulfate 75 mg 10/05/24 09:00 10/05/24 09:33 Clopidogrel 75 Mg Tablet PO 75 mg DAILY EVELIO Administration Heparin Sodium (Porcine) 0 unit 10/05/24 03:44 10/05/24 21:10 Heparin 5,000 Unit/Ml Inj 1 Ml IVP 2,900 unit PRN PRN Administration Heparin Weight Based Protocol -Subsequent Bolus Protocol Hydralazine HCl 10 mg 10/05/24 09:00 10/05/24 21:09 Hydralazine 10 Mg Tablet PO 10 mg TID EVELIO Administration Dextrose 125 mls @ 750 mls/hr 10/05/24 03:44 10/05/24 13:47 D10w IV Infused PRN PRN Infusion Adult Acute Hypoglycemia Nursing Protocol Protocol Heparin Sodium/Sodium Chloride 25,000 unit in 500 mls @ 0 mls/hr 10/05/24 04:30 10/06/24 03:46 Heparin Drip IV Not Given CONT [facility] Protocol Per Protocol Insulin Human Lispro 0 unit 10/05/24 08:00 10/05/24 17:15 Insulin Lispro 100 Unit/1 Ml SUBCUT 6 unit TIDWM EVELIO Administration Protocol Metoprolol Tartrate 25 mg 10/05/24 09:00 10/05/24 21:09 Metoprolol Tartrate 25 Mg Tablet PO 25 mg BID@0900,2100 EVELIO Administration Morphine Sulfate 15 mg 10/05/24 03:44 10/05/24 21:09 Morphine Ir 15 Mg Tablet PO 15 mg Q6H PRN Administration MODERATE PAIN Ondansetron HCl 4 mg 10/05/24 03:44 10/05/24 19:19 Ondansetron 2 Mg/Ml Sdv 2 Ml IVP 4 mg Q6H PRN Administration NAUSEA AND VOMITING Pantoprazole Sodium 40 mg 10/05/24 09:00 10/05/24 17:15 Pantoprazole 40 Mg Sdv IVP 40 mg BID EVELIO Administration PFSH Acute PFSH: Medical History Psychiatric care Anemia 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 Social History Smoking and tobacco/nicotine status: unknown if used tobacco/nicotine Alcohol intake: current Alcohol intake frequency: holidays/special occasions only Alcohol type: wine Vitals/I&O/Wt Last Vital Signs Temp 97.9 F 10/06/24 04:00 Pulse 76 10/06/24 05:12 Resp 17 10/06/24 04:00 BP 135/76 10/06/24 04:00 Pulse Ox 98 10/06/24 04:00 O2 Del Method Room Air 10/06/24 04:00 10/05/24 10/06/24 10/06/24 22:59 06:59 14:59 Intake Total 166.95 / 773.95 155.2 / 929.15 Balance 166.95 / 773.95 155.2 / 929.15 Weight last 48 hrs Weight 71.441 kg Weight 71.441 kg Weight 81.647 kg Physical Exam Narrative: awake , alert , No distress S1S2 RRR per report Lungs clear per report No edema Data 10/06/24 02:55 10/06/24 02:55 A&P Assessment and plan (1) HALIE (acute kidney injury): 1. Halie on CKD : Baseline Cr 1.2 recently , Cr was 2.0 about a month ago , now worsened to 4.5 today . Ddx - possible pre renal halie , NSAIDs induced HALIE ,Given Proteinuria and microscopic hematuria , will check Serologies - Complements , KASEY , ANCA . Proteinuria likely diabetic nephropathy . No obstruction on US. no acute indication for HD , will likely require renal biopsy , start NS @ 75 cc /hr 2. hyponatremia : mild , monitor , check U na and Urine osmolality \ 3. Metabolic acidosis , in setting of HALIE , Monitor 4. NSTEMI, management per primary team 5. Anemia: Hemoglobin 8.2, check iron studies, will order YANCY Consult Attestations Medical Necessity Statement: per albaro Coding Level of Care Code [facility] HALIE (acute kidney injury) N17.9
[2024-10-06] MEDS: pantoprazole 40 mg SDV IVP (09:07)
[2024-10-06] MEDS: clopidogrel 75 mg Tablet PO (09:07)
[2024-10-06] MEDS: metoprolol tartrate 25 mg Tablet PO (09:07)
[2024-10-06] MEDS: hyDRALAzine 10 mg Tablet PO (09:07)
--- NOTE | 2024-10-06 09:10 | PC.NURSE ---
Patient is calm and cooperative. Patient has emotional support animal per patient's words. Patient's dog, Gilbert, was walking on patient on patient's bed, nibbling on this nurse's watch and name tag for attention. Patient's dog, has been stopped from nibbling and chewing on patient's IV lines. Patient requested staff to take the dog outside to use the bathroom.
[2024-10-06] MEDS: sodium chloride 0.9% 1,000 ML 75 ML IV (10:12)
[2024-10-06] MEDS: epoetin alfa 20,000 unit/mL MDV (ESRD) 10000 UNIT SUBCUT (10:12)
--- NOTE | 2024-10-06 10:12 | PC.NURSE ---
This nurse at patient's bedside to hang IV fluids. Patient's dog very friendly and jumping up on this nurse's legs for attention. Dog interacts well with this nurse. Patient asked for the dog to be taken outside again. Patient stated, I don't think that other girl actually took him out. NATALIE Ambrose came in at this time and patient asked if she would be available to take the dog out. She stated, TINY Richmond would be coming by to take the dog outside to use the bathroom. Security Pieter walked the dog.
[2024-10-06] MEDS: heparin drip 25,000 UNIT/500 ML PREMIX 21 UNIT IV (10:16)
[2024-10-06 10:31] LABS: Glucose Point of Care 177 mg/dL (70-110)
[2024-10-06 11:50] LABS: Glucose Point of Care 147 mg/dL (70-110)
[2024-10-06 12:00] VITALS: BP 121/66; PULSE 71; RESP 16; TEMP 36.9; O2SAT 96
[2024-10-06] MEDS: ondansetron 2 mg/ML SDV 2 mL 4 MG IVP (12:09)
[2024-10-06] MEDS: lidocaine 5% Patch 1 PATCH TOPICAL (12:43)
--- NOTE | 2024-10-06 15:00 | PC.NURSE ---
This nurse to room to speak with patient after RAMO Rios Charge and RAMO Nguyenneighborhood coordinator spoke with patient about Animals in Facility policy. Patient very agitated toward RAMO Rios and RAMO Nguyen and voiced that, They were [facility] Next Tues[facility] and that he was going to be leaving unless they came in and gave him an apology. My dog has not been a problem and has been here for two days now and those girls...I want their names and titles...came in and all of a sudden it's a problem. This nurse tried to educate patient that to the best of my knowledge, the dog was allowed to stay as long as the patient had someone who was able to come and stay with the patient that will be able to take the dog out at all times since we no longer have the staff to do so. Patient very agitated but cooperative with this nurse. When this nurse asked if the patient was leaving, patient stated, I know you can't give me an answer, but I want an answer in five minutes if my dog can stay, if not I'm leaving. This nurse left and came back into the room and stated that the patient would have to find someone to come and take the dog. Patient stated it was not possible. Patient again became agitated. Security Joey entered room with this nurse to educate patient that since the patient's dog is not obedience trained and has been jumping on hospital staff which makes him a fall risk, and has required nursing staff and security to take him out, that it is per policy that the dog cannot stay. Patient immediately became hostile with Security Joey and insulting him stating, You have nothing else to stay with me, you can just shut up. This doesn't make any sense, you are just asking for a lawsuit. Hair makes sense and you don't have any. You are just a joke. Don't say another thing to me. Security Joey was very calm and cooperative with patient and told patient, I will interact with you, as long as you are talking to me. Patient instantly started yelling at Security Joey, Shut the fuck up. You are retarded. Don't say another fucking thing to me, as patient was holding his middle finger at Security Joey. Patient kept yelling, Get out of my face to Security Joey. Joey was standing over 3 feet away from patient behind this nurse. Meanwhile, this nurse was trying to remove patient's IV lines. Once IV lines were removed, this nurse and security exited room. This nurse spoke with RAMO Rios Charge about patient's noncompliance with animal policy. RAMO Rios Charge called Dr. Lora who stated he was going to put prescriptions for patient. This nurse returned to patient's room to ask where patient would like his prescriptions sent to. Patient stated, How does that make any sense. I don't drive. This whole thing is just bullshit and against the law. I am a disabled man with a dog who is not causing any problems. He's just a puppy. Do you think he's been a problem? This nurse tried educating patient that the dog was not being aggressive but the issue was that staff was not available to take the dog outside and he had been jumping up at this nurse while doing patient's assessment and had been nibbling on IV lines. Patient started interrupting this nurse while explaining dog's behavior, stating, I can't believe you. I thought you were nice but turns out you are just as two faced. You can shut the hell up and get out. This nurse exited room again to give patient some space and returned with patient's hospital paperwork. This nurse tried going over patient's ordered stress test and appointments to be looking out for, and patient again interrupted and stated, You can shut the fuck up. I am done with you and don't care about a damn thing you have to say. You are nothing but a two faced liar. This nurse placed patient's paperwork on patient's folder on bed and told the patient to have a nice day. This nurse stepped out of patient's room as Dr. Lora came to door. This nurse informed Dr. Lora that this nurse attempted to go over paperwork with patient, but the patient is no longer listening to what anyone has to say unless patient hears what he wants to. This nurse entered the room once more behind Dr. Lora. Dr. Lora was talking to the patient about leaving and that patient was not in the best circumstances to leave at this time. Patient was ignoring Dr. Lora while packing his things and arguing about the situation with his dog. This nurse stepped to the side of Dr. Lora and patient started yelling at this nurse, You can get the fuck out. I'm done with you. I don't care about anything you have to say. Get the fuck out. This nurse asked Dr. Lora if he would be okay if I stepped outside the door. Patient started yelling, I don't give a fuck about what he says, I'm the one telling you to get the fuck out of my room. I don't want you the fuck in here. Dr. Lora stated he was okay. This nurse waited outside the door with . Dr. Lora stepped out into the hallway and started speaking with Security Joey. Patient came out into the hallway and yelled at Security Joey, You can shut the fuck up. There is nothing else you have to say. You aren't going to stand outside the fucking door and talk about me. Security Joey attempted to educate patient that he was explaining the situation with the dog needing to leave the hospital and that it was against policy, that the patient either had to have someone come sweet pickle maker the dog or the dog could stay at the animal pound at the patient's expense and he could pick him up at discharge. Patient again yelling stating, Shut the fuck up. You are nothing but a retard. I don't want you to say another fucking word. Security Joey asked Dr. Degroot if they would step around the corner and discuss the situation. Patient exited room with his dog and belongings at 1540. Patient refused to sign any paperwork.
--- NOTE | 2024-10-06 15:15 | PC.NURSE ---
This nurse along with [facility] went to patient and explained the Animals in Health Care Facilities policy. We told the patient that he could have the dog in the room if someone could come and stay and take the dog out to the bathroom and tend to the dog, or the other option was to call and have someone come pickling operator the dog. We explained that we did not have the staff to be able to tend to the dog throughout the day. Patient became very angry and hostile. He stated why is this a problem now when I've been here for two days. My dog is not a problem. He doesn't pee on the floor. This nurse stated I just cleaned up pee on the floor by the door. Patient then stated How do you know it's his This nurse then proceeded to say Well, it's either the dog's or yours, but there was pee on the floor. While I am having this conversation, the dog is jumping on me. Patient stated we came into the room with an agenda and we aren't discussing this anymore. He is about to blow his top. Why are we discussing this, he is paying the bill and this is a service dog. At this time, [facility] and myself apologized to the patient stating we weren't trying to cause problems. Patient was not receptive. Wendy and I left the room and contacted security. hospital chief executive officer Joey contacted his hot dip plating supervisor, and then went into patient room to attempt to reiterate to the patient the same conversation Hope and I had. Wendy and I were standing outside of the room due to patient's hostile behavior toward us, to be witnesses to the conversation. Claudia CESPEDES was in the room with security Joey. Patient was yelling and cussing at Joey for several minutes. [facility] contacted solutions executive security Ej for backup just to be safe. Patient stated to Joey to shut the fuck up over and over again. Patient is now leaving A. Dr. Degroot notified. Dr. Lora ordered medications and follow up appointments for patient.
[2024-10-06 15:32] LABS: Partial Thromboplastin Time 51.6 SECONDS (23.9-36.7)
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
[2024-10-06 15:38] LABS: Complement C3 131 mg/dL (90-180)
--- NOTE | 2024-10-06 15:57 | PC.NURSE ---
This nurse pulled patient's wallet from [employer] which was in a sealed package. Ingrid RALPH delivered it to patient waiting in ER waiting room.
[2024-10-06 17:05] VITALS: BP 121/66; RESP 71; O2SAT 96
--- NOTE | 2024-10-06 20:35 | PM.PN ---
Subjective Subjective: Patient denies any complaint Patient remains very rude, he has a dog sleeping with him in his bed, last night when I try to examine the patient's dog moved towards me and made me worried that it may not attack me as I am not known to him, patient also made the comment that it can bite anterior tear arm, anyhow cautiously I examined the patient and discussed our plan, he was mad that if we have to do stress test on Tuesday he has to stay in why would not we can do stress test on the . I explained that because of logistics may not be possible to do stress test on the weekend. He did not like it. Today when I went back to see him he was standing already near the door by the sink with his dog. I examined him and explained the plan while trying to come out of the room I opened the door the dog came behind me and tried to come out of the room, patient caught the dog but in a rude manner told me that I am trying to let his dog out of the room I explained that I am trying to get out of the room and not letting his dog out at this point he shut the door on me. He denies any chest pain shortness of breath or PND orthopnea. At this point I would like to sign off since I am not comfortable in examining him while his dog standing next to him with a fear it may attack and also because of his rude behavior, however I can continue to prescribe and take care of him if needed. our recommendation is stress test on Tuesday morning before discharge. Continue current management. Vitals/I&O/Wt Last Vital Signs Temp 98.4 F 10/06/24 12:00 Pulse 71 10/06/24 12:00 Resp 71 H 10/06/24 17:05 BP 121/66 10/06/24 17:05 Pulse Ox 96 10/06/24 17:05 O2 Del Method Room Air 10/06/24 12:00 10/06/24 10/06/24 10/06/24 06:59 14:59 22:59 Intake Total 155.2 / 929.15 263.8 / 263.8 Output Total 360 / 360 Balance 155.2 / 929.15 -96.2 / -96.2 Weight last 48 hrs Weight 157 lb 8 oz Weight 157 lb 8 oz Weight 180 lb Physical Exam Const: OTHER: GENERAL: Patient is alert, awake and oriented x3. HEART: Regular S1 and S2. No murmur, rub or gallop. LUNGS: Clear to auscultate bilaterally. CENTRAL NERVOUS SYSTEM: Grossly nonfocal. Data 10/06/24 02:55 10/06/24 02:55 A&P Assessment and plan (1) Chest pain: Denies any more chest pain mildly elevated troponin could be demand ischemia plan for Lexiscan MIBI stress test on Tuesday morning (2) Essential hypertension: Well-controlled continue current regimen (3) Hyperlipidemia: Continue statin Qualifiers: Hyperlipidemia type: mixed hyperlipidemia Qualified Code(s): E78.2 - Mixed hyperlipidemia (4) Elevated troponin: Could be demand ischemia plan for stress test on Tuesday Plan We will sign off and can be contacted if with any question, please contact us after stress test Attestations Medical Necessity Statement*: As per Coding Level of Care Code Acute Code for [facility] Fwd Diagnoses Chest pain R07.9 Essential hypertension I10 Mixed hyperlipidemia E78.2 Hyperlipidemia type: mixed hyperlipidemia Elevated troponin R79.89
[2024-10-08 14:34] LABS: COMPLEMENT, TOTAL (CH50) >60 U/mL (31-60)
== END 2024-10-06 15:45 | disposition left against medical advice (07) | DRG 281 ==
LOC: ER 10-05 02:04 → MEDSURG 10-05 02:25
PROVIDERS: Hospitalist; Admitting Provider Internal Medicine; Emergency Provider Emergency Medicine; PCP Family Medicine Adult Medicine; Visit Provider Internal Medicine
DX: I21.4 Non-ST elevation (NSTEMI) myocardial infarction (principal); N17.9 Acute kidney failure, unspecified; E11.22 Type 2 diabetes mellitus with diabetic chronic kidney disease; I12.9 Hypertensive chronic kidney disease with stage 1 through stage 4 chronic kidney disease, or unspecified chronic kidney disease; N18.9 Chronic kidney disease, unspecified; D63.1 Anemia in chronic kidney disease; R31.29 Other microscopic hematuria; E78.2 Mixed hyperlipidemia; K29.70 Gastritis, unspecified, without bleeding; F43.21 Adjustment disorder with depressed mood; Z53.29 Procedure and treatment not carried out because of patient's decision for other reasons; Z79.84 Long term (current) use of oral hypoglycemic drugs; Z63.4 Disappearance and death of family member; Z85.828 Personal history of other malignant neoplasm of skin; Z89.421 Acquired absence of other right toe(s); Z82.3 Family history of stroke; Z83.3 Family history of diabetes mellitus; Z82.61 Family history of arthritis
CPT/HCPCS: 0241U; 36415; 36416; 71045; 71250; 74176; 80048; 80053; 82962; 83036; 83605; 83735; 83880; 84484; 85025; 85378; 85730; 86036; 86140; 86160; 86162; 86235; 86255; 86376; 93005; 93306; 96372; J0360; J1644; J1815; J2270; J2405; J2470; J7030; J7799; Q4081

== ENCOUNTER → 2024-11-08 13:00 | Outpatient (BNVA) | payer MEDICARE, MEDICAID, SELFPAY | PROVIDERS: PCP Family Medicine Adult Medicine; Visit Provider Podiatrist Foot & Ankle Surgery | DX: E11.8 Type 2 diabetes mellitus with unspecified complications (principal); L60.3 Nail dystrophy; E11.9 Type 2 diabetes mellitus without complications; Z79.4 Long term (current) use of insulin; M20.41 Other hammer toe(s) (acquired), right foot; G62.9 Polyneuropathy, unspecified | CPT/HCPCS: 99212 ==

== ENCOUNTER 2024-11-27 19:03 | Emergency (ER) | payer MEDICARE, MEDICAID, SELFPAY ==
[2024-11-27] VITALS (8 sets, daily range): BP systolic 127–229; BP diastolic 81–133; PULSE 95–114; RESP 18; TEMP 36.6; O2SAT 92–100; BMI 27.4
--- NOTE | 2024-11-27 19:09 | XRR_ITS ---
PROCEDURE INFORMATION: Exam: XR Right Hip Exam date and time: 11/27/2024 7:12 PM Age: 59 years old Clinical indication: Injury or trauma; Fall; Blunt trauma (contusions or hematomas); Right; Hip; Additional info: Fall, hip pain TECHNIQUE: Imaging protocol: Radiologic exam of the right hip. Views: 1 view hip with pelvis when performed. COMPARISON: CT abdomen pelvis wo con [id number] 10/05/2024 1:01 AM FINDINGS: Bones/joints: Unremarkable. No acute fracture. Soft tissues: Unremarkable. XR/XR hip RT 2-3V wo/w pel* [id number] IMPRESSION: No acute findings.
--- NOTE | 2024-11-27 19:23 | W.ED.FALL ---
HPI - Fall General: Chief Complaint: Fall Stated Complaint: fall,right hip pain History of Present Illness: Patient presents to the ER by EMS with complaints of a fall about 2 hours ago now is complaining of right hip pain. EMS stated he got up and walk to the cot with no problems. Patient also states he forgot to take his blood pressure medicine today this was blood pressure was 229/129. Patient has no other complaints at this time. Patient did not hit his head or lose consciousness. Related Data Previous Rx's Medication Instructions Recorded blood sugar diagnostic (Blood #300 ea 09/15/22 Glucose Test strips) blood-glucose meter (Blood Glucose #1 ea 09/15/22 Monitoring kit) lancets 30 gauge #300 ea 04/27/23 pen needle, diabetic 32 gauge x #100 ea 05/16/24 (BD Ultra-Fine Roz Pen Needle) dextromethorphan-guaifenesin 30 1 tab PO BID PRN cough #20 tabs 06/30/24 mg-600 mg tablet extended [id number] hr (Mucinex DM) amlodipine 10 mg tablet 10 mg PO DAILY #90 tabs 08/30/24 diabetic shoes w/ 3 inserts #1 ea 09/06/24 metformin 1,000 mg tablet 500 mg (1/2 x 1,000 mg) PO BID #30 09/12/24 tabs aspirin 81 mg tablet,delayed 81 mg PO DAILY #90 tabs 10/06/24 release atorvastatin 40 mg tablet 80 mg (2 x 40 mg) PO DAILY #90 tabs 10/06/24 hydralazine 10 mg tablet 10 mg PO TID #90 tabs 10/06/24 metoprolol succinate 50 mg 25 mg (1/2 x 50 mg) PO DAILY #30 10/06/24 tablet,extended release 24 hr tabs metoprolol tartrate 25 mg tablet 25 mg PO BID@0900,2100 #180 tabs 10/06/24 clonidine HCl 0.1 mg tablet 0.1 mg PO DAILY PRN hypertensive 11/26/24 emergency #7 tabs divalproex 250 mg tablet,delayed 250 mg PO .7 pm #30 tabs 11/26/24 release (Depakote) Allergies Allergy/AdvReac Type Severity Reaction Status Date / Time No Known Allergies Allergy Verified 11/27/24 19:04 Review of Systems General: Reports: 10 or more systems reviewed and unremarkable except in HPI and below PFSH ED PFSH: Medical History Nicotine dependence, cigarettes, uncomplicated Bereavement Mother in February 2024 Cannabis use disorder, moderate, dependence Chronic post-traumatic stress disorder Bipolar II disorder Impaired visual perception Psychiatric care Anemia 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 Social History Smoking and tobacco/nicotine status: unknown if used tobacco/nicotine Alcohol intake: current Alcohol intake frequency: holidays/special occasions only Alcohol type: wine Physical Exam Const: COMMON NORMALS: no acute distress, average body habitus, patient oriented x3, no limitations, healthy appearing, alert and well nourished HENMT: COMMON NORMALS: normocephalic, atraumatic, hearing grossly normal bilaterally, external ears normal, Normal external nose present and moist oral mucous membranes HEAD & SCALP: normocephalic and atraumatic NOSE: Normal external nose present EXTERNAL EAR: Yes external ears normal Neck/C-Spine: COMMON NORMALS: full ROM, no lymphadenopathy, supple, no meningeal signs, no JVD and Thyroid normal THYROID: Thyroid normal Chest: COMMONS NORMALS: normal inspection of the chest and normal palpation of entire chest wall Resp: COMMON NORMALS: normal respiratory effort, No use of accessory muscles and clear to auscultation bilaterally AUSCULTATION: clear to auscultation bilaterally Cardio: COMMON NORMALS: no JVD, regular rate, regular rhythm, S1 normal heart sound present, S2 normal heart sound present, No gallops present (Cardio), No clicks present (Cardio), No murmurs present (Cardio) and No rub (Cardio) RATE: regular rate RHYTHM: regular rhythm HEART SOUNDS: S1 normal heart sound present and S2 normal heart sound present GI: COMMON NORMALS: Normal to inspection, nondistended, normoactive bowel sounds present, Soft to palpation, non-tender, No hepatosplenomegaly present and no masses PALPATION: Yes Soft to palpation and Yes No hepatosplenomegaly present Extremity: NARRATIVE EXTREMITY EXAM: Patient is full range of motion of her right hip, no tenderness with palpation, crepitus deformity, Neuro: COMMON NORMALS: patient oriented x3 SENSORIUM/ORIENTATION: Yes alert MENINGEAL SIGNS: Yes no meningeal signs Course Vital Signs: Vital signs: Vital Signs Temperature 97.9 F 11/27/24 18:59 Pulse Rate 96 11/27/24 21:00 Respiratory Rate 18 11/27/24 18:59 Blood Pressure 150/89 11/27/24 21:00 Pulse Oximetry 92 11/27/24 21:00 Oxygen Delivery Me thod Room Air 11/27/24 18:59 MDM - Fall Medical Decision Making Patient x-ray of his right hip and pelvis showed no acute findings. POC glucose was 213. Upon arrival patient's blood pressure was 229/129, patient was given 0.2 mg of clonidine, 50 mg of hydralazine, he is decreased his blood pressure to 127/81. Patient be discharged home. Medical Records I reviewed the patient's medical records. Lab Data I reviewed the patient's lab results. Radiology Impressions Hip/Pelvis X-Ray 11/27/24 19:09 IMPRESSION: No acute findings. Head CT 11/27/24 21:46 IMPRESSION: 1. No acute intracranial abnormality. 2. 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 Laboratory Results POC Glucose 213 mg/dL (70-110) H 11/27/24 21:08 All radiology interpretation(s) finalized by discharge Discharge Plan Discharge Patient Disposition: Home Clinical Impression: Fall Qualifiers: Encounter type: initial encounter Qualified Code(s): W19.XXXA - Unspecified fall, initial encounter Hypertension Qualifiers: Hypertension type: unspecified Qualified Code(s): I10 - Essential (primary) hypertension Condition: Stable Prescriptions: No Action (DME) lancets 30 gauge misc See Rx Instructions .Route Qty: 300 6RF Rx Instructions: As directed to test TID (DME) diabetic shoes w/ 3 inserts See Rx Instructions .Route .MEDSUPPLY Qty: 1 0RF Rx Instructions: As directed by HOME w/Right toe filler (DME) Blood Glucose Test Strip See Rx Instructions .Route Qty: 300 3RF Rx Instructions: As directed TO TEST TID (DME) blood-glucose meter [Blood Glucose Monitoring] Kit See Rx Instructions .Route Qty: 1 0RF Rx Instructions: As directed (DME) pen needle, diabetic [BD Ultra-Fine Roz Pen Needle] 32 gauge x 5/32 needle See Rx Instructions .Route Qty: 100 3RF Rx Instructions: As directed divalproex [Depakote] 250 mg tablet,delayed release (DR/EC) 250 mg PO .7 pm Qty: 30 2RF Rx Instructions: Take one tablet at 7 pm clonidine HCl 0.1 mg tablet 0.1 mg PO DAILY PRN (Reason: hypertensive emergency) Qty: 7 1RF Rx Instructions: May take one tablet daily as needed for blood pressure systolic 160 or over amlodipine 10 mg tablet 10 mg PO DAILY Qty: 90 0RF atorvastatin 40 mg Tablet 80 mg PO DAILY Qty: 90 0RF hydralazine 10 mg Tablet 10 mg PO TID Qty: 90 0RF aspirin 81 mg Tablet,Delayed Release (Dr/Ec) 81 mg PO DAILY Qty: 90 0RF metoprolol tartrate 25 mg Tablet 25 mg PO BID@0900,2100 Qty: 180 0RF metoprolol succinate 50 mg tablet extended release 24 hr 25 mg PO DAILY Qty: 30 0RF Mucinex DM 30-600 mg tablet extended release 12 hr 1 tab PO BID PRN (Reason: cough) Qty: 20 0RF metformin 1,000 mg tablet 500 mg PO BID Qty: 30 0RF Rx Instructions: TAKE ONE TABLET BY MOUTH TWICE DAILY Discharge Orders: Discharge ED (Routine); Ordered 11/27/24 Ordered By: Naresh Arreaga Referrals: Darian Guzman MD [Primary Care Provider] - 1 week Patient Instructions: Hypertension (ED), Fall Prevention Activity Restrictions/Additional Instructions: Thank you for choosing [facility] for your healthcare needs today. Please realize that you were seen in the emergency department and that we are providing you with an emergency medical screening exam and this may not be a complete and all exclusive of all testing and/or medical workup we may need to determine your element or severity of your illness. It is very important that you follow-up as instructed with your primary care provider or specialist for the additional evaluation and to discuss your medical treatment plan. You may return to the emergency department should you have concerns or if your condition changes or worsens in any way. Coding Level of Care Code ED Executive Casino Host for Sandro Foster
[2024-11-27] MEDS: cloNIDine 0.1 mg Tablet 0.2 MG PO (19:28)
[2024-11-27] MEDS: acetaminophen 500 mg Tablet 1000 MG PO (20:16)
[2024-11-27] MEDS: hyDRALAzine 25 mg Tablet 50 MG PO (20:17)
[2024-11-27 21:10] LABS: Glucose Point of Care 213 mg/dL (70-110)
--- NOTE | 2024-11-27 21:46 | CTR_ITS ---
PROCEDURE INFORMATION: Exam: CT Head Without Contrast Exam date and time: 11/27/2024 10:27 PM Age: 59 years old Clinical indication: Injury or trauma; Fall; Concussion/head injury; Consciousness not specified; Additional info: Fall, syncope, hypertension, headache TECHNIQUE: Imaging protocol: Computed tomography of the head without contrast. Radiation optimization: All CT scans at this facility use at least one of these dose optimization techniques: automated exposure control; mA and/or kV adjustment per patient size (includes targeted exams where dose is matched to clinical indication); or iterative reconstruction. 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 Cerebral ventricles: No ventriculomegaly. Paranasal sinuses: Visualized sinuses are unremarkable. No fluid levels. Mastoid air cells: Visualized mastoid air cells are well aerated. Bones: Unremarkable. No acute fracture. Soft tissues: Unremarkable. CT/CT head wo con* [id number] IMPRESSION: 1. No acute intracranial abnormality. 2. 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
[2024-11-27] MEDS: ondansetron 2 mg/ML SDV 2 mL 4 MG IM (22:14)
[2024-11-27] MEDS: ondansetron 4 MG Tablet 2 MG PO (23:15)
== END 2024-11-27 23:19 | disposition home or self-care (01) ==
PROVIDERS: Emergency Provider Emergency Medicine; PCP Family Medicine Adult Medicine
DX: I10 Essential (primary) hypertension (principal); W19.XXXA Unspecified fall, initial encounter; Z79.82 Long term (current) use of aspirin; M25.551 Pain in right hip
CPT/HCPCS: 36416; 70450; 73502; 82962; 96372; 99284; J2405; Q0162

== ENCOUNTER → 2024-11-30 10:54 | Outpatient (BNVA) | payer MEDICARE, MEDICAID, SELFPAY | PROVIDERS: PCP Family Medicine; Visit Provider Specialist | DX: H53.9 Unspecified visual disturbance (principal); Q04.9 Congenital malformation of brain, unspecified; F31.81 Bipolar II disorder; G62.9 Polyneuropathy, unspecified; R07.9 Chest pain, unspecified; G40.909 Epilepsy, unspecified, not intractable, without status epilepticus | CPT/HCPCS: 99205 ==

== ENCOUNTER 2024-12-02 05:48 | Emergency (ER) | payer MEDICARE, MEDICAID, SELFPAY ==
[2024-12-02 05:50] VITALS: BP 224/123; PULSE 110; RESP 16; TEMP 36.4; O2SAT 94; BMI 27.4
--- NOTE | 2024-12-02 05:50 | CTR_ITS ---
PROCEDURE INFORMATION: Exam: CT Head Without Contrast Exam date and time: 12/02/2024 6:00 AM Age: 59 years old Clinical indication: Pain; Headache; GUTIERREZ with hypertension; Additional info: Headache, HTN TECHNIQUE: Imaging protocol: Computed tomography of the head without contrast. Radiation optimization: All CT scans at this facility use at least one of these dose optimization techniques: automated exposure control; mA and/or kV adjustment per patient size (includes targeted exams where dose is matched to clinical indication); or iterative reconstruction. COMPARISON: CT head wo con* [id number] 11/27/2024 10:27 PM RADIATION DOSE METRICS: Total DLP (mGy-cm): 1043.09 FINDINGS: Brain: There is a elaine cisterna magna versus a posterior fossa arachnoid cyst measuring 3.5 cm AP x 9 cm transverse x 7 cm craniocaudad. There is mild ventriculomegaly without change. Mild periventricular white matter hypodensities are without change. There is no evidence of acute hemorrhage. Cerebral ventricles: There is stable ventriculomegaly. Paranasal sinuses: Visualized sinuses are unremarkable. No fluid levels. Mastoid air cells: Visualized mastoid air cells are well aerated. Bones: Unremarkable. No acute fracture. Soft tissues: Unremarkable. CT/CT head wo con* [id number] IMPRESSION: 1. 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 2. Mild stable ventriculomegaly. 3. Mild white matter hypodensities again seen. Differential considerations include chronic microvascular ischemic change, demyelinating disease, or gliosis from infectious/inflammatory source.
[2024-12-02 05:56] VITALS: BP 211/112; PULSE 96; RESP 16; O2SAT 97
--- NOTE | 2024-12-02 06:08 | XRR_ITS ---
PROCEDURE INFORMATION: Exam: XR Chest Exam date and time: 12/02/2024 6:20 AM Age: 59 years old Clinical indication: Other: HTN TECHNIQUE: Imaging protocol: Radiologic exam of the chest. Views: 1 view. COMPARISON: CT chest [email or web address] [id number] 10/05/2024 12:53 AM FINDINGS: Lungs: There is minimal linear scarring or atelectasis involving the right mid lung. No consolidation is appreciated. Pleural spaces: Unremarkable. No pleural effusion. No pneumothorax. Heart/Mediastinum: The heart is slightly enlarged. Bones/joints: Unremarkable. XR/XR chest 1V portable [id number] IMPRESSION: 1. Mild cardiomegaly. 2. Minimal linear scarring or atelectasis right mid lung.
[2024-12-02 06:20] LABS: Basophils # 0.1 10^3/uL (0.0-0.1); Eosinophils # 0.2 10^3/uL (0.0-0.8); Eosinophils % 2.3 %; Hematocrit 30.8 % (37-53); Lymphocytes # 1.4 10^3/uL (0.8-4.8); Lymphocytes % 13.9 %; Mean Corpuscular HGB Conc 31.8 g/dL (30-55); Mean Corpuscular Volume 91.1 fl (82-101); Mean Platelet Volume 10.5 fL (7.4-10.4); Monocytes # 0.6 10^3/uL (0.2-0.9); Neutrophils # 7.82 10^3/uL (1.8-7.7); Neutrophils % 76.3 %; Nucleated Red Blood Cells % 0 %; Platelet Count 349 10^3/cmm (157-399); Red Blood Count 3.38 10^6/uL (3.85-5.65); Red Cell Distribution Width 13.2 % (12.1-15.1); White Blood Count 10.24 10^3/uL (3.29-11.43)
[2024-12-02] MEDS: labetalol 5 mg/mL SDV 20mL 10 MG IVP (06:27)
--- NOTE | 2024-12-02 06:29 | ECG_ITS ---
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
--- NOTE | 2024-12-02 06:30 | ED_ITS ---
HPI - Recheck/Abnormal Lab/Rx 2 General: Chief Complaint: Recheck/Abnormal Lab/Rx Stated Complaint: VISION CHANGES Time Seen by Provider: 12/02/24 05:55 Source: patient and EMS Mode of arrival: EMS Limitations: no limitations History of Present Illness: 59-year-old male states that he has been having vision changes been going on for the last 2 years. He says he is seeing Dr. Cespedes with ophthalmology has had her lens replacements but states that his vision continues to worsen over the last few years. He is also had a headache he is hypertensive he states he has not been taking his blood pressure medicine. He has no slurred speech no other focal deficits. Related Data Home Medications Medication Instructions Recorded Confirmed atorvastatin 80 mg tablet mg PO 11/30/24 11/30/24 hydrochlorothiazide 25 mg tablet mg PO 11/30/24 11/30/24 Previous Rx's Medication Instructions Recorded amlodipine 10 mg tablet 10 mg PO DAILY #90 tabs 08/30/24 diabetic shoes w/ 3 inserts #1 ea 09/06/24 metformin 1,000 mg tablet 500 mg (1/2 x 1,000 mg) PO BID #30 09/12/24 tabs aspirin 81 mg tablet,delayed 81 mg PO DAILY #90 tabs 10/06/24 release hydralazine 10 mg tablet 10 mg PO TID #90 tabs 10/06/24 metoprolol succinate 50 mg 25 mg (1/2 x 50 mg) PO DAILY #30 10/06/24 tablet,extended release 24 hr tabs metoprolol tartrate 25 mg tablet 25 mg PO BID@0900,2100 #180 tabs 10/06/24 clonidine HCl 0.1 mg tablet 0.1 mg PO DAILY PRN hypertensive 11/26/24 emergency #7 tabs divalproex 250 mg tablet,delayed 250 mg PO .7 pm #30 tabs 11/26/24 release (Depakote) Allergies Allergy/AdvReac Type Severity Reaction Status Date / Time No Known Allergies Allergy Verified 12/02/24 05:51 Review of Systems 2 Const: Denies: fever(s), chills, body aches or change in appetite Eyes: Reports: blurry vision; Denies: eye discomfort ENMT: Denies: throat pain or dental pain Card: Denies: chest pain Resp: Denies: dyspnea GI: Denies: abdominal pain, nausea, vomiting or diarrhea Musc: Denies: neck pain or back pain Skin/Breast: Denies: rash Neuro: Denies: headache(s) PFSH ED 2 PFSH: Medical History CKD (chronic kidney disease) stage V requiring chronic dialysis Nicotine dependence, cigarettes, uncomplicated Bereavement Mother in February 2024 Cannabis use disorder, moderate, dependence Chronic post-traumatic stress disorder Bipolar II disorder Impaired visual perception Psychiatric care Anemia 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 Social History Smoking and tobacco/nicotine status: current some day tobacco/nicotine user Alcohol intake: current Alcohol intake frequency: holidays/special occasions only Alcohol type: wine Physical Exam 2 Const: COMMON NORMALS: no acute distress, patient oriented x3 and healthy appearing HENMT: COMMON NORMALS: normocephalic and atraumatic HEAD & SCALP: n ormocephalic and atraumatic Eye: COMMON NORMALS: Equal, round and reactive pupils present and EOMs intact bilaterally PUPIL: Yes Equal, round and reactive pupils present OTHER: Patient is able to see fingers and name number fingers in all 4 quadrants of both eyes states he just has blurred vision Neck/C-Spine: COMMON NORMALS: full ROM and supple Chest: COMMONS NORMALS: normal inspection of the chest and normal palpation of entire chest wall Resp: COMMON NORMALS: normal respiratory effort, No retractions, No use of accessory muscles and clear to auscultation bilaterally AUSCULTATION: clear to auscultation bilaterally Cardio: COMMON NORMALS: regular rate, regular rhythm and No murmurs present (Cardio) RATE: regular rate RHYTHM: regular rhythm GI: COMMON NORMALS: Normal to inspection, nondistended, normoactive bowel sounds present, Soft to palpation, non-tender and no masses PALPATION: Yes Soft to palpation Extremity: COMMON NORMALS: normal to inspection and full ROM Neuro: COMMON NORMALS: patient oriented x3, moves all extremities and no focal motor deficits Psych: COMMON NORMALS: mental status grossly normal, Normal thought process present and cooperative THOUGHT PROCESS: Normal thought process present Skin: COMMON NORMALS: no rashes or lesions noted and no wounds GENERAL SKIN EXAM: no rashes or lesions noted Course 2 Vital Signs: Vital signs: Vital Signs Temperature 97.6 F 12/02/24 05:50 Pulse Rate 92 12/02/24 07:34 Respiratory Rate 16 12/02/24 05:56 Blood Pressure 176/94 12/02/24 07:34 Pulse Oximetry 93 12/02/24 07:34 Oxygen Delivery Me thod Nasal Cannula 12/02/24 05:56 Oxygen Flow Rate 1.5 12/02/24 05:56 MDM - Recheck/Abnormal Lab/Rx Medical Decision Making Patient presents here with hypertension along with some blurred vision has been going on for over a year no acute changes here. He has chronic kidney disease as well is at his baseline he feels much improved after his blood pressures improved here. I informed him it is very important that he gets his blood pressure under control he needs to follow-up with his PCP next week we will put in a ophthalmology referral as well he needs to follow-up with nephrology as well if he has any worsening symptoms he is to return he understands agrees to plan Medical Records I reviewed the patient's medical records. Lab Data I reviewed the patient's lab results. 12/02/24 05:30 12/02/24 05:[address] 12/02/24 05:50 IMPRESSION: 1. 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 2. Mild stable ventriculomegaly. 3. Mild white matter hypodensities again seen. Differential considerations include chronic microvascular ischemic change, demyelinating disease, or gliosis from infectious/inflammatory source. Laboratory Results WBC 10.24 10^3/uL (3.29-11.43) 12/02/24 05:30 RBC 3.38 10^6/uL (3.85-5.65) L 12/02/24 05:30 Hgb 9.80 g/dL (11.27-16.99) L 12/02/24 05:30 Hct 30.8 % (37-53) L 12/02/24 05:30 MCV 91.1 fl (82-101) 12/02/24 05:30 MCH 29.0 pg (27-33) 12/02/24 05:30 MCHC 31.8 g/dL (30-55) 12/02/24 05:30 RDW 13.2 % (12.1-15.1) 12/02/24 05:30 Plt Count 349 10^3/cmm (157-399) 12/02/24 05:30 MPV 10.5 fL (7.4-10.4) H 12/02/24 05:30 Neut % (Auto) 76.3 % 12/02/24 05:30 Lymph % (Auto) 13.9 % 12/02/24 05:30 Carroll % (Auto) 6.0 % 12/02/24 05:30 Eos % (Auto) 2.3 % 12/02/24 05:30 Baso % (Auto) 1.0 % 12/02/24 05:30 Neut # (Auto) 7.82 10^3/uL (1.8-7.7) H 12/02/24 05:30 Lymph # (Auto) 1.4 10^3/uL (0.8-4.8) 12/02/24 05:30 Carroll # (Auto) 0.6 10^3/uL (0.2-0.9) 12/02/24 05:30 Eos # (Auto) 0.2 10^3/uL (0.0-0.8) 12/02/24 05:30 Baso # (Auto) 0.1 10^3/uL (0.0-0.1) 12/02/24 05:30 Nucleated RBC % (auto) 0 % 12/02/24 05:30 Nucleated RBCs # 0.0 /100WBC 12/02/24 05:30 PT 14.00 SECONDS (12.1-14.9) 12/02/24 05:30 INR 1.01 (0.8-1.2) 12/02/24 05:30 Sodium 136 mmol/L (136-145) 12/02/24 05:30 Potassium 4.2 mmol/L (3.5-5.1) 12/02/24 05:30 Chloride 97 mmol/L (98-107) L 12/02/24 05:30 Carbon Dioxide 21 mmol/L (22-29) L 12/02/24 05:30 Anion Gap 22.2 (5-19) H 12/02/24 05:30 BUN 51 mg/dL (6-20) H 12/02/24 05:30 Creatinine 4.1 mg/dL (0.7-1.2) H 12/02/24 05:30 GFR Calculation 15.1 mL/min (90-130) L 12/02/24 05:30 Glucose 254 mg/dL (65-115) H 12/02/24 05:30 Calculated Osmolality 304 mOsm/kg (285-295) H 12/02/24 05:30 Calcium 7.9 mg/dL (8.5-10.5) L 12/02/24 05:30 Total Bilirubin 0.2 mg/dL (0.15-1.2) 12/02/24 05:30 AST 15 U/L (0-40) 12/02/24 05:30 ALT 9 U/L (0-41) 12/02/24 05:30 Alkaline Phosphatase 92 U/L (40-130) 12/02/24 05:30 Total Protein 6.5 g/dL (6.6-8.7) L 12/02/24 05:30 Albumin 3.9 g/dL (3.5-5.2) 12/02/24 05:30 Globulin 2.6 g/dL (1.3-4.6) 12/02/24 05:30 No radiology studies performed this visit EKG Data EKG 1: I personally reviewed and interpreted this EKG as follows: EKG interpretation date: 12/02/24 EKG interpretation time: 07:01 Interpretation: nsr hr [address] or t wave abnormalities qrs 72 qtc 416 Discharge Plan Discharge Patient Disposition: Home Clinical Impression: Blurred vision Hypertension Qualifiers: Hypertension type: unspecified Qualified Code(s): I10 - Essential (primary) hypertension Condition: Stable Prescriptions: No Action (DME) diabetic shoes w/ 3 inserts See Rx Instructions .Route .MEDSUPPLY Qty: 1 0RF Rx Instructions: As directed by HOME w/Right toe filler hydrochlorothiazide 25 mg tablet PO atorvastatin 80 mg tablet PO divalproex [Depakote] 250 mg tablet,delayed release (DR/EC) 250 mg PO .7 pm Qty: 30 2RF Rx Instructions: Take one tablet at 7 pm clonidine HCl 0.1 mg tablet 0.1 mg PO DAILY PRN (Reason: hypertensive emergency) Qty: 7 1RF Rx Instructions: May take one tablet daily as needed for blood pressure systolic 160 or over amlodipine 10 mg tablet 10 mg PO DAILY Qty: 90 0RF hydralazine 10 mg Tablet 10 mg PO TID Qty: 90 0RF aspirin 81 mg Tablet,Delayed Release (Dr/Ec) 81 mg PO DAILY Qty: 90 0RF metoprolol tartrate 25 mg Tablet 25 mg PO BID@0900,2100 Qty: 180 0RF metoprolol succinate 50 mg tablet extended release 24 hr 25 mg PO DAILY Qty: 30 0RF metformin 1,000 mg tablet 500 mg PO BID Qty: 30 0RF Rx Instructions: TAKE ONE TABLET BY MOUTH TWICE DAILY Discharge Orders: Discharge ED (Routine); Ordered 12/02/24 Ordered By: Roxann Mac Referrals: Shaq Cespedes MD [Physician] - 4-7 days Pierce Justice MD [Primary Care Provider] - 4-7 days Discharge Diet: Advance as tolerated Discharge Activity: Resume usual activity Patient Instructions: Hypertension (ED), Blurred Vision (ED) Coding Level of Care Code ED Management Technician for Sandro Foster
[2024-12-02 06:32] LABS: INR 1.01 (0.8-1.2)
[2024-12-02 06:34] LABS: Alanine Aminotransferase 9 U/L (0-41); Albumin Level 3.9 g/dL (3.5-5.2); Alkaline Phosphatase 92 U/L (40-130); Anion Gap 22.2 (5-19); Aspartate Amino Transferase 15 U/L (0-40); Blood Urea Nitrogen 51 mg/dL (6-20); Calcium 7.9 mg/dL (8.5-10.5); Carbon Dioxide 21 mmol/L (22-29); Chloride 97 mmol/L (98-107); Globulin 2.6 g/dL (1.3-4.6); Glomerular Filtration Rate 15.1 mL/min (90-130); Glucose 254 mg/dL (65-115); Osmolality Calculated 304 mOsm/kg (285-295); Potassium 4.2 mmol/L (3.5-5.1); Sodium 136 mmol/L (136-145); Total Bilirubin 0.2 mg/dL (0.15-1.2); Total Protein 6.5 g/dL (6.6-8.7)
[2024-12-02 06:44] LABS: Creatinine Clr Calc Pharmacy 19.4354
[2024-12-02 07:34] VITALS: BP 176/94; PULSE 92; O2SAT 93
[2024-12-02 07:46] VITALS: BP 176/94; PULSE 91; O2SAT 94
== END 2024-12-02 07:48 | disposition home or self-care (01) ==
PROVIDERS: Emergency Provider Emergency Medicine; PCP Family Medicine
DX: H53.8 Other visual disturbances (principal); I12.0 Hypertensive chronic kidney disease with stage 5 chronic kidney disease or end stage renal disease; N18.5 Chronic kidney disease, stage 5; Z99.2 Dependence on renal dialysis; Z79.82 Long term (current) use of aspirin; Z79.84 Long term (current) use of oral hypoglycemic drugs; Z72.0 Tobacco use
CPT/HCPCS: 70450; 71045; 80053; 85025; 85610; 93005; 96374; 99285; J3490

== ENCOUNTER 2024-12-07 15:48 | Inpatient (IN) | payer MEDICARE, MEDICAID, SELFPAY ==
[2024-12-07] VITALS (27 sets, daily range): BP systolic 149–265; BP diastolic 76–139; PULSE 81–96; RESP 12–32; TEMP 35.8; O2SAT 85–100; BMI 25.8
--- NOTE | 2024-12-07 15:49 | XRR_ITS ---
PROCEDURE INFORMATION: Exam: XR Chest Exam date and time: 12/07/2024 4:04 PM Age: 59 years old Clinical indication: Cough and dyspnea; Respiratory distress; Cough TECHNIQUE: Imaging protocol: Radiologic exam of the chest. Views: 1 view. COMPARISON: CR (CHEST, ) 12/02/2024 6:20 AM FINDINGS: Lungs: There is pulmonary hypoinflation with compressive changes at the lung bases bilaterally. A subtle infiltrate at the medial right lung base is difficult to exclude. There are increased interstitial markings throughout the lungs which appear coarsened and may be chronic. However, there are subtle linear densities peripherally in the mid to lower lung zones suspicious for Audrey B-lines related to interstitial pulmonary edema. There is a 5 mm nodular density projecting over the right perihilar region. Pleural spaces: No significant pleural effusion is seen. Heart/Mediastinum: Within normal limits. No cardiomegaly. Bones/joints: Intact. Other findings: None. XR/XR chest 1V portable [id number] IMPRESSION: 1. Pulmonary hypoinflation with compressive changes at the lung bases bilaterally. 2. Possible superimposed infiltrate at the medial right lung base. 3. Increased interstitial markings throughout the lungs, which appear coarsened and are likely chronic. However, there is a suggestion of Audrey B lines at the lung bases raising the possibility of interstitial pulmonary edema. Please correlate clinically. 4. Nodular 5 mm density projecting over the right perihilar region. This could represent a prominent vessel on end versus pulmonary nodule. No suspicious pulmonary nodule is seen on the recent CT scan from October 05, 2024.
--- NOTE | 2024-12-07 15:50 | ECG_ITS ---
[facility] ([facility]) Test Date: 2024-12-07 Pat Name: Joseph Baker Department: Room: Gender: Male Kerrick Kleaner Operator: : 1965 Requested By: Brian Lewis Order Number: [id number] Reading MD: АНДРЕЙ LOMBARDI Measurements Intervals [place] Rate: 90 P: 61 [place]: 144 QRS: 64 QRSD: 75 T: 68 QT: 380 QTc: 466 Interpretive Statements SINUS RHYTHM POSSIBLE LEFT ATRIAL ENLARGEMENT [-0.1mV P-WAVE IN V1/V2] Compared to ECG 12/02/2024 07:01:51 T-wave abnormality no longer present Electronically Signed On 12-09-2024 21:04:19 PRODUCT TEST ENGINEER by АНДРЕЙ LOMBARDI [id number]
--- NOTE | 2024-12-07 15:53 | W.ED.SOB ---
Documented by User: Brian Escuedro, 12/14/24 15:14 HPI - SOB/Dyspnea General: Chief Complaint: Shortness of Breath/Dyspnea Stated Complaint: resp distress Time Seen by Provider: 12/07/24 15:49 History of Present Illness: HPI Narrative: 59-year-old male with a history end-stage renal disease on dialysis He was at a local department store began having shortness of breath. EMS was called he was found to have 70% O2 sat on room air He also has a history of hypertension. He was started on CPAP and arrived here he has labored breathing but he is awake and alert and able to tell me he is okay at if we intubated him if we absolutely have to. Patient has a history of diabetes mellitus as well. Associated symptoms: Deny abdominal pain, chest pain or fever(s) Related Data Home Medications ?Medication ?Instructions ?Recorded ?Confirmed hydrochlorothiazide 25 mg tablet 25 mg PO DAILY 11/30/24 12/07/24 pantoprazole 40 mg tablet,delayed 40 mg PO DAILY 12/06/24 12/07/24 release bupropion HCl 150 mg 24 hr tablet, 150 mg PO DAILY 12/07/24 12/07/24 extended release hydralazine 10 mg tablet 10 mg PO TID PRN Anxiety 12/07/24 12/07/24 metoprolol succinate 50 mg 25 mg PO DAILY 12/07/24 12/07/24 tablet,extended release 24 hr Previous Rx's ?Medication ?Instructions ?Recorded diabetic shoes w/ 3 inserts #1 ea 09/06/24 metformin 1,000 mg tablet 500 mg (1/2 x 1,000 mg) PO BID #30 09/12/24 tabs aspirin 81 mg tablet,delayed 81 mg PO DAILY #90 tabs 10/06/24 release clonidine HCl 0.1 mg tablet 0.1 mg PO DAILY PRN hypertensive 11/26/24 emergency #7 tabs divalproex 250 mg tablet,delayed 250 mg PO .7 pm #30 tabs 11/26/24 release (Depakote) amlodipine 10 mg tablet 10 mg PO DAILY #90 tabs 12/06/24 ezetimibe 10 mg tablet 10 mg PO DAILY #90 tabs 12/06/24 Allergies Allergy/AdvReac Type Severity Reaction Status Date / Time No Known Allergies Allergy Verified 12/06/24 13:24 Review of Systems Const: Denies: fever(s) or chills Card: Denies: chest pain Resp: Reports: dyspnea GI: Denies: abdominal pain : Denies: dysuria, urinary frequency or urinary urgency Musc: Denies: neck pain or back pain Skin/Breast: Denies: rash PFSH ED PFSH: Medical History (Updated 12/14/24 @ 00:00 by ROULA Bronson) Influenza Acute on chronic renal failure Acute hypoxemic respiratory failure Community acquired pneumonia HALIE (acute kidney injury) Non-STEMI (non-ST elevated myocardial infarction) Hyperglycemia Hammertoe of right foot Callus of heel Type 2 diabetes mellitus Blurred vision CKD (chronic kidney disease) stage V requiring chronic dialysis Nicotine dependence, cigarettes, uncomplicated Bereavement Mother in February 2024 Cannabis use disorder, moderate, dependence Chronic post-traumatic stress disorder Bipolar II disorder Impaired visual perception Psychiatric care Anemia 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 Social History Smoking and tobacco/nicotine status: current some day tobacco/nicotine user Alcohol intake: current Alcohol intake frequency: holidays/special occasions only Alcohol type: wine Physical Exam Const: COMMON NORMALS: no acute distress GENERAL APPEARANCE: cooperative and comfortable ORIENTATION/CONSCIOUSNESS: Yes awake, Yes oriented to person, Yes oriented to place and Yes oriented to time HENMT: COMMON NORMALS: normocephalic, atraumatic and hearing grossly normal bilaterally HEAD & SCALP: normocephalic and atraumatic Resp: AUSCULTATION: rhonchi and wheezes Cardio: COMMON NORMALS: regular rate, regular rhythm and No murmurs present (Cardio) RATE: regular rate RHYTHM: regular rhythm GI: COMMON NORMALS: Soft to palpation and No hepatosplenomegaly present AUSCULTATION: Yes normoactive bowel sounds PALPATION: Yes Soft to palpation, No Tenderness to palpation present (GI), No Guarding due to palpation present (GI) and Yes No hepatosplenomegaly present Extremity: COMMON NORMALS: normal to inspection, capillary refill normal, no clubbing, cyanosis or edema, no calf tenderness and no pedal edema Neuro: SENSORIUM/ORIENTATION: Yes oriented to person, Yes oriented to place and Yes oriented to time Skin: COMMON NORMALS: no rashes or lesions noted GENERAL SKIN EXAM: no rashes or lesions noted Course Vital Signs: Vital signs: Vital Signs Temperature 97.7 F 12/13/24 21:50 Pulse Rate 88 12/13/24 21:50 Respiratory Rate 16 12/13/24 21:50 Blood Pressure 137/79 12/13/24 21:50 Pulse Oximetry 96 12/13/24 21:50 Oxygen Delivery Me thod Room Air 12/13/24 20:00 Oxygen Flow Rate 1 12/12/24 05:35 Fraction of Inspir ed Oxygen 50 12/10/24 01:14 MDM - SOB/Dyspnea Medical Decision Making Care signed out to Dr. Arreaga at change of shift. See final notes for diagnosis and disposition. Patient care transferred over to myself at shift change, patient currently on BiPAP at 65% oxygen, lab work was reviewed, initial troponin 172 however he has been 150 in the past 2-hour troponin was 202 for delta of 30. Chest x-ray showed possible superimposed infiltrates and pulmonary edema. These results were discussed with Dr. Hanson we will start NSTEMI protocol place patient on antibiotics and admit him to the ICU Lab Data 12/13/24 06:37 12/13/24 15:55 Labs/Radiology: Radiology Impressions Chest CT 12/08/24 12:10 IMPRESSION: Infiltrates in the bilateral upper lobes, consistent with pneumonia. Bilateral pleural effusions with lower lobe consolidation/collapse. Abdomen/Pelvis CT 12/09/24 08:28 IMPRESSION: 1. No bowel obstruction or acute inflammation. 2. Small bilateral pleural effusions with overlying passive atelectasis. Calcified granuloma right lung base. 3. Multiple patchy and nodular opacities in the bilateral lower mid and lower lungs. May represent aspiration pneumonitis, infectious or inflammatory etiology. Recommend correlation. 4. Mild colonic diverticulosis. Chest X-Ray 12/09/24 15:32 IMPRESSION: As above. Renal Ultrasound 12/09/24 16:07 IMPRESSION: Unremarkable kidneys and bladder. Laboratory Results WBC 8.90 10^3/uL (3.29-11.43) 12/07/24 16:24 RBC 3.11 10^6/uL (3.85-5.65) L 12/07/24 16:24 Hgb 9.10 g/dL (11.27-16.99) L 12/07/24 16:24 Hct 28.7 % (37-53) L 12/07/24 16:24 MCV 92.3 fl (82-101) 12/07/24 16:24 MCH 29.3 pg (27-33) 12/07/24 16:24 MCHC 31.7 g/dL (30-55) 12/07/24 16:24 RDW 13.4 % (12.1-15.1) 12/07/24 16:24 Plt Count 316 10^3/cmm (157-399) 12/07/24 16:24 MPV 10.7 fL (7.4-10.4) H 12/07/24 16:24 Neut % (Auto) 78.3 % 12/07/24 16:24 Lymph % (Auto) 13.9 % 12/07/24 16:24 [place] % (Auto) 4.3 % 12/07/24 16:24 Eos % (Auto) 2.0 % 12/07/24 16:24 Baso % (Auto) 1.1 % 12/07/24 16:24 Neut # (Auto) 6.96 10^3/uL (1.8-7.7) 12/07/24 16:24 Lymph # (Auto) 1.2 10^3/uL (0.8-4.8) 12/07/24 16:24 [place] # (Auto) 0.4 10^3/uL (0.2-0.9) 12/07/24 16:24 Eos # (Auto) 0.2 10^3/uL (0.0-0.8) 12/07/24 16:24 Baso # (Auto) 0.1 10^3/uL (0.0-0.1) 12/07/24 16:24 Nucleated RBC % (auto) 0 % 12/07/24 16:24 Nucleated RBCs # 0.0 /100WBC 12/07/24 16:24 D-Dimer 1.48 ug/mLFEU (0-0.59) H 12/07/24 16:24 Specimen Type Arterial 12/07/24 18:00 Sample Site Radial, left 12/07/24 18:00 ABG pH 7.36 (7.35-7.45) 12/07/24 18:00 ABG pCO2 40.2 mmHg (35-45) 12/07/24 18:00 ABG pO2 174.0 mmHg (80.0-100.0) H 12/07/24 18:00 ABG PO2/FiO2 Ratio 348 12/07/24 18:00 ABG HCO3 22.7 mmol/L (22-26) 12/07/24 18:00 ABG O2 Saturation 97.8 12/07/24 18:00 ABG Base Excess -2.6 mmol/L (-2.0-2.0) L 12/07/24 18:00 Dl Test Pos 12/07/24 18:00 A-a O2 Gradient 17.0 mmHg (5-10) H 12/07/24 18:00 Hematocrit 29.4 % (42-52) L 12/07/24 18:00 Hgb O2 Saturation 96.8 % (95-100) 12/07/24 18:00 Carboxyhemoglobin < 0.3 %THgb (0.4-20.1) L 12/07/24 18:00 Methemoglobin 0.9 % (0.4-1.5) 12/07/24 18:00 Total Hemoglobin 9.6 g/dL (14-18) L 12/07/24 18:00 Sodium 139.0 mmol/L (131-143) 12/07/24 18:00 Potassium 4.0 mmol/L (3.5-5.0) 12/07/24 18:00 Glucose 296.0 mg/dL (70-115) H 12/07/24 18:00 Ionized Calcium 1.1 mmol/L (1.1-1.4) 12/07/24 18:00 O2 Delivery Device Bipap 12/07/24 18:00 FiO2 50.0 % 12/07/24 18:00 Thrill Performer ID Broma 12/07/24 18:00 Sodium 137 mmol/L (136-145) 12/07/24 16:24 Potassium 4.1 mmol/L (3.5-5.1) 12/07/24 16:24 Chloride 100 mmol/L (98-107) 12/07/24 16:24 Carbon Dioxide 21 mmol/L (22-29) L 12/07/24 16:24 Anion Gap 20.1 (5-19) H 12/07/24 16:24 BUN 61 mg/dL (6-20) H 12/07/24 16:24 Creatinine 4.5 mg/dL (0.7-1.2) H 12/07/24 16:24 GFR Calculation 13.6 mL/min (90-130) L 12/07/24 16:24 Glucose 316 mg/dL (65-115) H 12/07/24 16:24 Calculated Osmolality 313 mOsm/kg (285-295) H 12/07/24 16:24 Lactic Acid 1.5 mmol/L (0.5-2.2) 12/07/24 16:24 Calcium 7.9 mg/dL (8.5-10.5) L 12/07/24 16:24 Total Bilirubin 0.2 mg/dL (0.15-1.2) 12/07/24 16:24 AST 27 U/L (0-40) 12/07/24 16:24 ALT 28 U/L (0-41) 12/07/24 16:24 Alkaline Phosphatase 122 U/L (40-130) 12/07/24 16:24 Creatine Kinase 371 U/L (39-308) H* 12/07/24 16:24 Troponin T Baseline 172 ng/L (0-15) H* 12/07/24 16:24 Troponin T 120 Minute 202.6 ng/L (0-15) H 12/07/24 18:42 Delta Troponin T 30.6 ABS# (0-10) H* 12/07/24 18:42 NT-Pro-B Natriuret Pep 75327 pg/mL (0-125) H 12/07/24 16:24 Total Protein 6.6 g/dL (6.6-8.7) 12/07/24 16:24 Albumin 3.8 g/dL (3.5-5.2) 12/07/24 16:24 Globulin 2.8 g/dL (1.3-4.6) 12/07/24 16:24 Lipase 21 U/L (13-60) 12/07/24 16:24 Procalcitonin 0.06 ng/mL (0-0.5) 12/07/24 16:24 Urine Color Yellow (Yellow) 12/07/24 18:31 Urine Appearance Clear (CLEAR) 12/07/24 18:31 Urine pH 5.5 (5-7) 12/07/24 18:31 Ur Specific [place] 1.012 (1.005-1.030) 12/07/24 18:31 Urine Protein 3+ (Negative) A 12/07/24 18: Urine Glucose (UA) 2+ (Normal) H 12/07/24 18:31 Urine Ketones Negative (Negative) 12/07/24 18:31 Urine Blood Negative (Negative) 12/07/24 18:31 Urine Nitrate Negative (Negative) 12/07/24 18: Urine Bilirubin Negative (Negative) 12/07/24 18: Urine Urobilinogen 0.2 mg/dL (Negative) 12/07/24 18:31 Ur Leukocyte Esterase Negative (Negative) 12/07/24 18:31 Urine RBC 0-2 /hpf (0-2) 12/07/24 18:31 Urine WBC 0-5 /hpf (0-5) 12/07/24 18:31 Ur Squamous Epith Cells 0-5 /hpf (0-5) 12/07/24 18:31 Amorphous Sediment Not Reportable 12/07/24 18:31 Urine Bacteria None seen /hpf (NONE) 12/07/24 18:31 Hyaline Casts 1.21 /lpf 12/07/24 18:31 Serum Ketones Negative (Negative) 12/07/24 16:24 Coronavirus (PCR) Negative (Negative) 12/07/24 16:16 Influenza A (PCR) Negative (Negative) 12/07/24 16:16 Influenza Type B (PCR) Negative (Negative) 12/07/24 16:16 RSV (PCR) Negative (Negative) 12/07/24 16:16 Discharge Plan Discharge Patient Disposition: Admitted As Inpatient Admit Provider: Mariaelena Hanson Clinical Impression: Community acquired pneumonia, Non-STEMI (non-ST elevated myocardial infarction), Acute hypoxemic respiratory failure Condition: Stable Coding Level of Care Code ED Shipping And Receiving Weigher for Chg Fwd Documented by User: Naresh Arreaga DO 12/07/24 20:14 HPI - SOB/Dyspnea General: Chief Complaint: Shortness of Breath/Dyspnea Stated Complaint: resp distress Time Seen by Provider: 12/07/24 15:49 Related Data Home Medications ?Medication ?Instructions ?Recorded ?Confirmed hydrochlorothiazide 25 mg tablet 25 mg PO DAILY 11/30/24 12/07/24 pantoprazole 40 mg tablet,delayed 40 mg PO DAILY 12/06/24 12/07/24 release bupropion HCl 150 mg 24 hr tablet, 150 mg PO DAILY 12/07/24 12/07/24 extended release hydralazine 10 mg tablet 10 mg PO TID PRN Anxiety 12/07/24 12/07/24 metoprolol succinate 50 mg 25 mg PO DAILY 12/07/24 12/07/24 tablet,extended release 24 hr Previous Rx's ?Medication ?Instructions ?Recorded diabetic shoes w/ 3 inserts #1 ea 09/06/24 metformin 1,000 mg tablet 500 mg (1/2 x 1,000 mg) PO BID #30 09/12/24 tabs aspirin 81 mg tablet,delayed 81 mg PO DAILY #90 tabs 10/06/24 release clonidine HCl 0.1 mg tablet 0.1 mg PO DAILY PRN hypertensive 11/26/24 emergency #7 tabs divalproex 250 mg tablet,delayed 250 mg PO .7 pm #30 tabs 11/26/24 release (Depakote) amlodipine 10 mg tablet 10 mg PO DAILY #90 tabs 12/06/24 ezetimibe 10 mg tablet 10 mg PO DAILY #90 tabs 12/06/24 Allergies Allergy/AdvReac Type Severity Reaction Status Date / Time No Known Allergies Allergy Verified 12/06/24 13:24 [facility] [place] ED PFSH: Medical History (Updated 12/14/24 @ 00:00 by ROULA Bronson) Influenza Acute on chronic renal failure Acute hypoxemic respiratory failure Community acquired pneumonia HALIE (acute kidney injury) Non-STEMI (non-ST elevated myocardial infarction) Hyperglycemia Hammertoe of right foot Callus of heel Type 2 diabetes mellitus Blurred vision CKD (chronic kidney disease) stage V requiring chronic dialysis Nicotine dependence, cigarettes, uncomplicated Bereavement Mother in February 2024 Cannabis use disorder, moderate, dependence Chronic post-traumatic stress disorder Bipolar II disorder Impaired visual perception Psychiatric care Anemia 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 Social History Smoking and tobacco/nicotine status: current some day tobacco/nicotine user Alcohol intake: current Alcohol intake frequency: holidays/special occasions only Alcohol type: wine Course Vital Signs: Vital signs: Vital Signs Temperature 97.7 F 12/13/24 21:50 Pulse Rate 88 12/13/24 21:50 Respiratory Rate 16 12/13/24 21:50 Blood Pressure 137/79 12/13/24 21:50 Pulse Oximetry 96 12/13/24 21:50 Oxygen Delivery Me thod Room Air 12/13/24 20:00 Oxygen Flow Rate 1 12/12/24 05:35 Fraction of Inspir ed Oxygen 50 12/10/24 01:14 MDM - SOB/Dyspnea Medical Decision Making Patient care transferred over to myself at shift change, patient currently on BiPAP at 65% oxygen, lab work was reviewed, initial troponin 172 however he has been 150 in the past 2-hour troponin was 202 for delta of 30. Chest x-ray showed possible superimposed infiltrates and pulmonary edema. These results were discussed with Dr. Hanson we will start NSTEMI protocol place patient on antibiotics and admit him to the ICU Lab Data 12/13/24 06:37 12/13/24 15:55 Labs/Radiology: Radiology Impressions Chest CT 12/08/24 12:10 IMPRESSION: Infiltrates in the bilateral upper lobes, consistent with pneumonia. Bilateral pleural effusions with lower lobe consolidation/collapse. Abdomen/Pelvis CT 12/09/24 08:28 IMPRESSION: 1. No bowel obstruction or acute inflammation. 2. Small bilateral pleural effusions with overlying passive atelectasis. Calcified granuloma right lung base. 3. Multiple patchy and nodular opacities in the bilateral lower mid and lower lungs. May represent aspiration pneumonitis, infectious or inflammatory etiology. Recommend correlation. 4. Mild colonic diverticulosis. Chest X-Ray 12/09/24 15:32 IMPRESSION: As above. Renal Ultrasound 12/09/24 16:07 IMPRESSION: Unremarkable kidneys and bladder. Laboratory Results WBC 8.90 10^3/uL (3.29-11.43) 12/07/24 16:24 RBC 3.11 10^6/uL (3.85-5.65) L 12/07/24 16:24 Hgb 9.10 g/dL (11.27-16.99) L 12/07/24 16:24 Hct 28.7 % (37-53) L 12/07/24 16:24 MCV 92.3 fl (82-101) 12/07/24 16:24 MCH 29.3 pg (27-33) 12/07/24 16:24 MCHC 31.7 g/dL (30-55) 12/07/24 16:24 RDW 13.4 % (12.1-15.1) 12/07/24 16:24 Plt Count 316 10^3/cmm (157-399) 12/07/24 16:24 MPV 10.7 fL (7.4-10.4) H 12/07/24 16:24 Neut % (Auto) 78.3 % 12/07/24 16:24 Lymph % (Auto) 13.9 % 12/07/24 16:24 [place] % (Auto) 4.3 % 12/07/24 16:24 Eos % (Auto) 2.0 % 12/07/24 16:24 Baso % (Auto) 1.1 % 12/07/24 16:24 Neut # (Auto) 6.96 10^3/uL (1.8-7.7) 12/07/24 16:24 Lymph # (Auto) 1.2 10^3/uL (0.8-4.8) 12/07/24 16:24 [place] # (Auto) 0.4 10^3/uL (0.2-0.9) 12/07/24 16:24 Eos # (Auto) 0.2 10^3/uL (0.0-0.8) 12/07/24 16:24 Baso # (Auto) 0.1 10^3/uL (0.0-0.1) 12/07/24 16:24 Nucleated RBC % (auto) 0 % 12/07/24 16:24 Nucleated RBCs # 0.0 /100WBC 12/07/24 16:24 D-Dimer 1.48 ug/mLFEU (0-0.59) H 12/07/24 16:24 Specimen Type Arterial 12/07/24 18:00 Sample Site Radial, left 12/07/24 18:00 ABG pH 7.36 (7.35-7.45) 12/07/24 18:00 ABG pCO2 40.2 mmHg (35-45) 12/07/24 18:00 ABG pO2 174.0 mmHg (80.0-100.0) H 12/07/24 18:00 ABG PO2/FiO2 Ratio 348 12/07/24 18:00 ABG HCO3 22.7 mmol/L (22-26) 12/07/24 18:00 ABG O2 Saturation 97.8 12/07/24 18:00 ABG Base Excess -2.6 mmol/L (-2.0-2.0) L 12/07/24 18:00 Dl Test Pos 12/07/24 18:00 A-a O2 Gradient 17.0 mmHg (5-10) H 12/07/24 18:00 Hematocrit 29.4 % (42-52) L 12/07/24 18:00 Hgb O2 Saturation 96.8 % (95-100) 12/07/24 18:00 Carboxyhemoglobin < 0.3 %THgb (0.4-20.1) L 12/07/24 18:00 Methemoglobin 0.9 % (0.4-1.5) 12/07/24 18:00 Total Hemoglobin 9.6 g/dL (14-18) L 12/07/24 18:00 Sodium 139.0 mmol/L (131-143) 12/07/24 18:00 Potassium 4.0 mmol/L (3.5-5.0) 12/07/24 18:00 Glucose 296.0 mg/dL (70-115) H 12/07/24 18:00 Ionized Calcium 1.1 mmol/L (1.1-1.4) 12/07/24 18:00 O2 Delivery Device Bipap 12/07/24 18:00 FiO2 50.0 % 12/07/24 18:00 Thrill Performer NAMRATA Goff 12/07/24 18:00 Sodium 137 mmol/L (136-145) 12/07/24 16:24 Potassium 4.1 mmol/L (3.5-5.1) 12/07/24 16:24 Chloride 100 mmol/L (98-107) 12/07/24 16:24 Carbon Dioxide 21 mmol/L (22-29) L 12/07/24 16:24 Anion Gap 20.1 (5-19) H 12/07/24 16:24 BUN 61 mg/dL (6-20) H 12/07/24 16:24 Creatinine 4.5 mg/dL (0.7-1.2) H 12/07/24 16:24 GFR Calculation 13.6 mL/min (90-130) L 12/07/24 16:24 Glucose 316 mg/dL (65-115) H 12/07/24 16:24 Calculated Osmolality 313 mOsm/kg (285-295) H 12/07/24 16:24 Lactic Acid 1.5 mmol/L (0.5-2.2) 12/07/24 16:24 Calcium 7.9 mg/dL (8.5-10.5) L 12/07/24 16:24 Total Bilirubin 0.2 mg/dL (0.15-1.2) 12/07/24 16:24 AST 27 U/L (0-40) 12/07/24 16:24 ALT 28 U/L (0-41) 12/07/24 16:24 Alkaline Phosphatase 122 U/L (40-130) 12/07/24 16:24 Creatine Kinase 371 U/L (39-308) H* 12/07/24 16:24 Troponin T Baseline 172 ng/L (0-15) H* 12/07/24 16:24 Troponin T 120 Minute 202.6 ng/L (0-15) H 12/07/24 18:42 Delta Troponin T 30.6 ABS# (0-10) H* 12/07/24 18:42 NT-Pro-B Natriuret Pep 19294 pg/mL (0-125) H 12/07/24 16:24 Total Protein 6.6 g/dL (6.6-8.7) 12/07/24 16:24 Albumin 3.8 g/dL (3.5-5.2) 12/07/24 16:24 Globulin 2.8 g/dL (1.3-4.6) 12/07/24 16:24 Lipase 21 U/L (13-60) 12/07/24 16:24 Procalcitonin 0.06 ng/mL (0-0.5) 12/07/24 16:24 Urine Color Yellow (Yellow) 12/07/24 18:31 Urine Appearance Clear (CLEAR) 12/07/24 18: Urine pH 5.5 (5-7) 12/07/24 18:31 Ur Specific [place] 1.012 (1.005-1.030) 12/07/24 18:31 Urine Protein 3+ (Negative) A 12/07/24 18: Urine Glucose (UA) 2+ (Normal) H 12/07/24 18:31 Urine Ketones Negative (Negative) 12/07/24 18:31 Urine Blood Negative (Negative) 12/07/24 18:31 Urine Nitrate Negative (Negative) 12/07/24 18:31 Urine Bilirubin Negative (Negative) 12/07/24 18:31 Urine Urobilinogen 0.2 mg/dL (Negative) 12/07/24 18:31 Ur Leukocyte Esterase Negative (Negative) 12/07/24 18:31 Urine RBC 0-2 /hpf (0-2) 12/07/24 18:31 Urine WBC 0-5 /hpf (0-5) 12/07/24 18:31 Ur Squamous Epith Cells 0-5 /hpf (0-5) 12/07/24 18:31 Amorphous Sediment Not Reportable 12/07/24 18:31 Urine Bacteria None seen /hpf (NONE) 12/07/24 18:31 Hyaline Casts 1.21 /lpf 12/07/24 18:31 Serum Ketones Negative (Negative) 12/07/24 16:24 Coronavirus (PCR) Negative (Negative) 12/07/24 16:16 Influenza A (PCR) Negative (Negative) 12/07/24 16:16 Influenza Type B (PCR) Negative (Negative) 12/07/24 16:16 RSV (PCR) Negative (Negative) 12/07/24 16:16 All radiology interpretation(s) finalized by discharge Discharge Plan Discharge Patient Disposition: Admitted As Inpatient Admit Provider: Mariaelena Hanson Clinical Impression: Community acquired pneumonia, Non-STEMI (non-ST elevated myocardial infarction), Acute hypoxemic respiratory failure Condition: Stable Coding Level of Care Code ED Shipping And Receiving Weigher for Sandro Foster
[2024-12-07 16:03] LABS: ABG PCO2 43.5 mmHg (35-45); Alveolar-Arterial Oxygen Gradi 50.3 mmHg (5-10); Arterial Blood Gas Hematocrit 31.8 % (42-52); Base Excess ABG -4.9 mmol/L (-2.0-2.0); Blood Gas Allen Test Pos; Blood Gas Operator Identificat glc; Blood Gas Sample Site Radial, left; Blood Gas Sample Type Arterial; Carboxyhemoglobin 0.7 %THgb (0.4-20.1); HCO3 ABG 21.3 mmol/L (22-26); HGB O2 Sat 96.7 % (95-100); Ionized Calcium Level - ABG 1.1 mmol/L (1.1-1.4); Methemoglobin 0.9 % (0.4-1.5); Oxygen Device BIPAP; Oxygen Saturation ABG 98.3; PO2 FiO2 Ratio Arterial Blood 268; Potassium Level - ABG 3.9 mmol/L (3.5-5.0); Total Hemoglobin 10.4 g/dL (14-18)
[2024-12-07] MEDS: labetalol 5 mg/mL SDV 20mL 10 MG IVP (16:03)
[2024-12-07] MEDS: hyDRALAzine 20 mg/mL INJ 1 mL IVP (16:03)
[2024-12-07] MEDS: FUROsemide 10 mg/mL SDV 10mL 60 MG IVP (16:04)
[2024-12-07 16:30] LABS: Basophils # 0.1 10^3/uL (0.0-0.1); Basophils % 1.1 %; Eosinophils # 0.2 10^3/uL (0.0-0.8); Hematocrit 28.7 % (37-53); Lymphocytes # 1.2 10^3/uL (0.8-4.8); Lymphocytes % 13.9 %; Mean Corpuscular HGB Conc 31.7 g/dL (30-55); Mean Corpuscular Hemoglobin 29.3 pg (27-33); Mean Corpuscular Volume 92.3 fl (82-101); Mean Platelet Volume 10.7 fL (7.4-10.4); Monocytes # 0.4 10^3/uL (0.2-0.9); Monocytes % 4.3 %; Neutrophils # 6.96 10^3/uL (1.8-7.7); Neutrophils % 78.3 %; Nucleated Red Blood Cells % 0 %; Platelet Count 316 10^3/cmm (157-399); Red Blood Count 3.11 10^6/uL (3.85-5.65); Red Cell Distribution Width 13.4 % (12.1-15.1)
[2024-12-07 16:46] LABS: Ketone (Acetest) Serum Negative (Negative)
[2024-12-07 16:50] LABS: Lactic Sepsis W/Reflex 1.5 mmol/L (0.5-2.2)
[2024-12-07 16:52] LABS: Alanine Aminotransferase 28 U/L (0-41); Albumin Level 3.8 g/dL (3.5-5.2); Alkaline Phosphatase 122 U/L (40-130); Anion Gap 20.1 (5-19); Aspartate Amino Transferase 27 U/L (0-40); Blood Urea Nitrogen 61 mg/dL (6-20); Calcium 7.9 mg/dL (8.5-10.5); Carbon Dioxide 21 mmol/L (22-29); Chloride 100 mmol/L (98-107); Globulin 2.8 g/dL (1.3-4.6); Glomerular Filtration Rate 13.6 mL/min (90-130); Glucose 316 mg/dL (65-115); Lipase 21 U/L (13-60); Osmolality Calculated 313 mOsm/kg (285-295); Potassium 4.1 mmol/L (3.5-5.1); Sodium 137 mmol/L (136-145); Total Bilirubin 0.2 mg/dL (0.15-1.2); Total Protein 6.6 g/dL (6.6-8.7)
[2024-12-07 16:53] LABS: Creatine Phosphokinase 371 U/L (39-308)
[2024-12-07 17:05] LABS: Troponin(5th) Baseline 172 ng/L (0-15)
[2024-12-07 17:36] LABS: Influenza A NEGATIVE (Negative); Influenza B NEGATIVE (Negative); Respiratory Syncytial Virus Ce NEGATIVE (Negative); SARS-CoV-2 PCR NEGATIVE (Negative)
--- NOTE | 2024-12-07 17:37 | DCPLANNER ---
PD let us know that the dog he had with him has been placed at the [facility]
--- NOTE | 2024-12-07 17:42 | PC.NURSE ---
Animal- [facility] came to the floor and wanted the patient to know that they had taken the patient's dog to the [facility]. In room to tell patient at this time. Patient very emotional.
--- NOTE | 2024-12-07 18:02 | ECG_ITS ---
[facility] Test Date: 2024-12-07 Pat Name: Joseph Baker Department: Room: Gender: Male Legislative Correspondent: : 1965 Requested By: Brian Lewis Order Number: [id number] Reading MD: АНДРЕЙ LOMBARDI Measurements Intervals [place] Rate: 93 P: 59 RI: 161 QRS: 67 QRSD: 72 T: 80 QT: 389 QTc: 485 Interpretive Statements SINUS RHYTHM POSSIBLE LEFT ATRIAL ENLARGEMENT [-0.1mV P-WAVE IN V1/V2] Compared to ECG 12/07/2024 15:52:38 No significant changes Electronically Signed On 12-09-2024 21:10:53 APPRAISAL MANAGER by АНДРЕЙ LOMBARDI [email or web address]
[2024-12-07 18:13] LABS: NT Pro B Type Natriuretic Pept 12745 pg/mL (0-125)
[2024-12-07 18:14] LABS: ABG PCO2 40.2 mmHg (35-45); ABG PH Result 7.36 (7.35-7.45); Arterial Blood Gas Hematocrit 29.4 % (42-52); Base Excess ABG -2.6 mmol/L (-2.0-2.0); Blood Gas Allen Test Pos; Blood Gas Operator Identificat BROMA; Blood Gas Sample Site Radial, left; Blood Gas Sample Type Arterial; Carboxyhemoglobin < 0.3 %THgb (0.4-20.1); HCO3 ABG 22.7 mmol/L (22-26); HGB O2 Sat 96.8 % (95-100); Ionized Calcium Level - ABG 1.1 mmol/L (1.1-1.4); Methemoglobin 0.9 % (0.4-1.5); Oxygen Device BIPAP; Oxygen Saturation ABG 97.8; PO2 FiO2 Ratio Arterial Blood 348; Total Hemoglobin 9.6 g/dL (14-18)
[2024-12-07 18:44] LABS: Bilirubin Urine Negative (Negative); Blood Urine Negative (Negative); Glucose Urine UA 2+ (Normal); Ketones Urine Negative (Negative); Leukocyte Esterase Urine Negative (Negative); Nitrate Urine Negative (Negative); Protein Urine 3+ (Negative); Specific Gravity, Urine 1.012 (1.005-1.030); Urine Appearance Clear (CLEAR); Urine Color Yellow (Yellow); Urobilinogen Urine 0.2 mg/dL (Negative); pH Urine 5.5 (5-7)
[2024-12-07 18:45] LABS: Procalcitonin 0.06 ng/mL (0-0.5)
[2024-12-07 18:50] LABS: Add Urine Microscopic? YES; Bacteria Urine None Seen /hpf; Hyaline Casts Urine 1.21 /lpf; RBC Urine 0-2 /hpf (0-2); Squamous Epithelial Cell Urine 0-5 /hpf (0-5); WBC Urine 0-5 /hpf (0-5)
[2024-12-07 19:59] LABS: Troponin 5 2HR 202.6 ng/L (0-15); Troponin 5 2HR Delta 30.6 ABS# (0-10)
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
[2024-12-07 20:55] LABS: D Dimer 1.48 ug/mLFEU (0-0.59)
[2024-12-07] MEDS: piperacillin-tazobactam 3.375 GM in sodium chloride 0.9% (plus) 50 ML IV (21:21)
[2024-12-07] MEDS: clopidogrel 300 mg Tablet 600 MG PO (21:21)
[2024-12-07] MEDS: aspirin 81 mg Chew Tablet 324 MG PO (21:22)
--- NOTE | 2024-12-07 21:50 | ECG_ITS ---
Phase III Development Test Date: 2024-12-07 Pat Name: Joseph Baker Department: Room: ICU10 Gender: Male Dialysis Clinical Manager: : 1965 Requested By: Brian Lewis Order Number: [id number] Reading MD: АНДРЕЙ LOMBARDI Measurements Intervals Floyd Rate: 94 P: 45 ME: 149 QRS: 55 QRSD: 73 T: 113 QT: 381 QTc: 477 Interpretive Statements SINUS RHYTHM POSSIBLE LEFT ATRIAL ENLARGEMENT [-0.1mV P-WAVE IN V1/V2] NONSPECIFIC ST & T-WAVE ABNORMALITY Compared to ECG 12/07/2024 18:02:30 T-wave abnormality now present Electronically Signed On 12-09-2024 21:10:30 TURNING AND BEADING MACHINE OPERATOR by АНДРЕЙ LOMBARDI [email or web address]
[2024-12-07] MEDS: heparin 5,000 unit/mL INJ 1 mL IVP (21:58)
[2024-12-07 22:02] LABS: Glucose Point of Care 318 mg/dL (70-110)
[2024-12-07] MEDS: heparin drip 25,000 UNIT/500 ML PREMIX 21 UNIT IV (22:02)
[2024-12-07] MEDS: clopidogrel 300 mg Tablet PO (22:32)
[2024-12-07] MEDS: divalproex DR 500 mg Tablet PO (22:32)
[2024-12-07] MEDS: insulin lispro 100 unit/1 mL SUBCUT (22:32)
[2024-12-07 23:25] LABS: Troponin 5 6HR 219.7 ng/L (0-15); Troponin 5 6HR Delta 47.7 ng/L (0-12)
[2024-12-07] MEDS: hyDRALAzine 10 mg Tablet PO (23:34)
[2024-12-08] VITALS (31 sets, daily range): BP systolic 106–196; BP diastolic 59–112; PULSE 76–111; RESP 2–33; TEMP 37.1–38.1; O2SAT 87–99
[2024-12-08 04:38] LABS: Basophils # 0.1 10^3/uL (0.0-0.1); Basophils % 1.1 %; Eosinophils # 0.1 10^3/uL (0.0-0.8); Eosinophils % 1.4 %; Hematocrit 25.2 % (37-53); Lymphocytes # 1.9 10^3/uL (0.8-4.8); Lymphocytes % 20.5 %; Mean Corpuscular HGB Conc 32.1 g/dL (30-55); Mean Corpuscular Hemoglobin 30.1 pg (27-33); Mean Corpuscular Volume 93.7 fl (82-101); Mean Platelet Volume 10.8 fL (7.4-10.4); Monocytes # 0.7 10^3/uL (0.2-0.9); Monocytes % 7.3 %; Neutrophils # 6.54 10^3/uL (1.8-7.7); Neutrophils % 69.4 %; Nucleated Red Blood Cells % 0 %; Platelet Count 277 10^3/cmm (157-399); Red Blood Count 2.69 10^6/uL (3.85-5.65); Red Cell Distribution Width 13.4 % (12.1-15.1); White Blood Count 9.42 10^3/uL (3.29-11.43)
[2024-12-08 04:50] LABS: Partial Thromboplastin Time 57.4 SECONDS (23.9-36.7)
[2024-12-08 05:10] LABS: Anion Gap 19.5 (5-19); Blood Urea Nitrogen 63 mg/dL (6-20); C Reactive Protein 8.4 mg/L (0.0-4.9); Calcium 8.1 mg/dL (8.5-10.5); Carbon Dioxide 23 mmol/L (22-29); Chloride 101 mmol/L (98-107); Creatinine Clr Calc Pharmacy 16.5849; Glomerular Filtration Rate 12.9 mL/min (90-130); Glucose 119 mg/dL (65-115); Osmolality Calculated 309 mOsm/kg (285-295); Potassium 3.5 mmol/L (3.5-5.1); Sodium 140 mmol/L (136-145)
[2024-12-08 07:35] LABS: Glucose Point of Care 174 mg/dL (70-110)
[2024-12-08] MEDS: aspirin 81 mg EC Tablet PO (08:15)
[2024-12-08] MEDS: metoprolol succinate ER (24 HR) 25 mg Tablet PO (08:15)
[2024-12-08] MEDS: amlodipine 10 mg Tablet PO (08:15)
[2024-12-08] MEDS: pantoprazole DR 40 mg Tablet PO (08:16)
[2024-12-08] MEDS: clopidogrel 75 mg Tablet PO (08:16)
[2024-12-08] MEDS: doxycycline 100 mg Tablet PO ×2 (08:16→16:42)
[2024-12-08] MEDS: buPROPion XL (24 HR) 150 mg Tablet PO (08:16)
[2024-12-08] MEDS: hyDRALAzine 10 mg Tablet PO (08:16)
[2024-12-08] MEDS: cefTRIAXone 1,000 MG in sodium chloride 0.9% (plus) 50 ML 100 MG IV (08:16)
[2024-12-08] MEDS: divalproex DR 500 mg Tablet PO ×2 (08:17→21:03)
[2024-12-08] MEDS: ezetimibe 10 mg Tablet PO (08:17)
[2024-12-08] MEDS: nicotine 14 mg Patch 1 PATCH TRANSDERMA (08:17)
[2024-12-08] MEDS: insulin lispro 100 unit/1 mL SUBCUT ×2 (08:18→17:35)
--- NOTE | 2024-12-08 10:34 | PC.NURSE ---
am breakfast servered ate small amt at this time , voices concern for his [place] [facility] , checked with security who will contact them to get update on animal to reassure pt that he is alright
[2024-12-08 10:57] LABS: Partial Thromboplastin Time 45.7 SECONDS (23.9-36.7)
[2024-12-08] MEDS: ondansetron 2 mg/ML SDV 2 mL 4 MG IVP (11:12)
[2024-12-08] MEDS: heparin 5,000 unit/mL INJ 1 mL IVP ×2 (11:28→20:03)
[2024-12-08 12:07] LABS: Glucose Point of Care 123 mg/dL (70-110)
--- NOTE | 2024-12-08 12:10 | CTR_ITS ---
PROCEDURE INFORMATION: Exam: CT Chest Without Contrast; Diagnostic Exam date and time: 12/08/2024 12:53 PM Age: 59 years old Clinical indication: Shortness of breath; Additional info: Copd/pna TECHNIQUE: Imaging protocol: Diagnostic computed tomography of the chest without contrast. Radiation optimization: All CT scans at this facility use at least one of these dose optimization techniques: automated exposure control; mA and/or kV adjustment per patient size (includes targeted exams where dose is matched to clinical indication); or iterative reconstruction. COMPARISON: CT chest [facility] [id number] 10/05/2024 12:53 AM RADIATION DOSE METRICS: Total DLP (mGy-cm): 455.24 FINDINGS: Lungs: Ground-glass infiltrates in the bilateral upper lobes. Bilateral lower lobe compressive atelectasis. Pleural spaces: Moderate bilateral pleural effusions. Heart: Unremarkable. No cardiomegaly. No pericardial effusion. Coronary arteries: There is mild atherosclerotic calcification of the coronary arteries. Lymph nodes: Unremarkable. No enlarged lymph nodes. Vasculature: Calcified atheromas of the visualized arteries. Pancreas: There are punctate pancreatic parenchymal calcifications, consistent with chronic pancreatitis. Kidneys: Nonobstructing left renal stone measuring 4 mm. There is no evidence of hydronephrosis. Intestine: Mild diverticulosis is present in the distal colon. Bones/joints: [id number] compression deformity of T3, T4, T5, T6 and T7, stable. Soft tissues: Unremarkable. CT/CT chest [facility] [id number] IMPRESSION: Infiltrates in the bilateral upper lobes, consistent with pneumonia. Bilateral pleural effusions with lower lobe consolidation/collapse.
--- NOTE | 2024-12-08 12:10 | ECG_ITS ---
Estately Test Date: 2024-12-10 Pat Name: Joseph Baker Department: Room: ICU10 Gender: Male Electrical Maintenance Supervisor: : 1965 Requested By: Terence Novoa Order Number: [id number] Miles MD: Spike Armstrong M.D. Interpretive Statements Lung unchanged pre/post procedure; Intraprocedure shortess of breath; Symptoms resoled by discharge PROCEDURE: At the baseline, the EKG revealed sinus tachycardia with a diffuse nonspecific ST-T changes. The baseline heart was 103 bpm with a blood pressue of 173/77 mm of Hg Lexiscan was infused over a period of 20 seconds. A total of 0.4 milligrams of Lexiscan was infused. The stress phase was continued for a total of 5 minutes. Heart rate at the end of the stress phase was 104 bpm with a blood pressure 136/61 mm of Hg. The EKG at the peak infusion revealed no significant changes. Sestamibi was injected 20 seconds after the Lexiscan infusion. Heart rate at the end of the recovery phase was 104 bpm with a blood pressure of 143/63 mm of Hg. CONCLUSION: 1. No significant EKG changes with the LexiScan infusion 2. No LexiScan induced chest pain or cardiac arrhythmia 3. Normal blood pressure and heart rate response 4. Sestamibi/sestamibi perfusion scan pending; see separate report. Electronically Signed On 12-17-2024 07:30:22 INTERNAL CONTROL ANALYST by Spike Armstrong M.D. [email or web address]
[2024-12-08] MEDS: FUROsemide 10 mg/mL SDV 4mL 40 MG IVP (12:43)
[2024-12-08] MEDS: metOLazone 5 MG Tablet PO (12:44)
[2024-12-08 12:45] LABS: Procalcitonin 0.15 ng/mL (0-0.5)
[2024-12-08] MEDS: ipratropium-albuterol 3 mL Neb INHALATION ×2 (13:41→20:36)
[2024-12-08 14:04] LABS: MRSA PCR OZH (swab) NOT DETECTED (Negative)
[2024-12-08] MEDS: hyDRALAzine 10 mg Tablet 50 MG PO ×2 (15:11→21:03)
--- NOTE | 2024-12-08 16:04 | P.PN_ITS ---
Subjective 2 Subjective: Admitted overnight. Laying comfortably in bed. Pleasant. Denies of having any chest pain. On 2 L of oxygen supplementation. Blood pressure is elevated. Vitals/I&O/Wt Last Vital Signs Temp 98.8 F 12/08/24 06:27 Pulse 90 12/08/24 15:26 Resp 23 H 12/08/24 15:00 BP 137/71 12/08/24 15:00 Pulse Ox 90 12/08/24 15:00 O2 Del Method Nasal Cannula 12/08/24 13:43 O2 Flow Rate 2 12/08/24 13:43 FiO2 65 12/07/24 16:26 12/08/24 12/08/24 12/08/24 06:59 14:59 22:59 Intake Total 197 / 197 630.55 / 630.55 Output Total 800 / 800 Balance -603 / -603 630.55 / 630.55 Weight last 48 hrs Weight 73.346 kg Weight 73.346 kg Weight 72.575 kg Physical Exam 2 Narrative: General: No acute distress, AO x3, emotionally labile HEENT: PERRLA, pupils bilaterally equal and reactive Chest: Bilateral bronchial breath sounds all lung lung oconnell, occasional rhonchi all over lung oconnell, coarse crackles present right more than left CVS: S1-S2 regular, no murmurs, no tachycardia, no gallops, no rubs Abdomen: Soft, nontender, no organomegaly, bowel sounds present Neuro: No focal deficits, no facial deformity, AO x3, power 5/5 in all limbs Data 12/08/24 04:24 12/08/24 04:24 Micro: Microbiology 12/07/24 20:09 Blood Culture - Preliminary Blood SPECIMEN COLLECTED 12/07/24 20:19 Blood Culture - Preliminary Blood SPECIMEN COLLECTED A&P Assessment and plan (1) Acute hypoxemic respiratory failure: (2) Community acquired pneumonia: Qualifiers: Laterality: unspecified laterality Qualified Code(s): J18.9 - Pneumonia, unspecified organism (3) Non-STEMI (non-ST elevated myocardial infarction): (4) Essential hypertension: (5) Type 2 diabetes mellitus: Qualifiers: Diabetes mellitus terminal operations manager insulin use: with terminal operations manager use Diabetes mellitus complication status: without complication Qualified Code(s): E11.9 - Type 2 diabetes mellitus without complications; Z79.4 - roasterman (current) use of insulin (6) CKD (chronic kidney disease) stage V requiring chronic dialysis: (7) Bipolar II disorder: (8) Chronic post-traumatic stress disorder: (9) Cannabis use disorder, moderate, dependence: (10) Blurred vision: (11) Anemia: (12) Hammertoe of right foot: (13) Nicotine dependence, cigarettes, uncomplicated: Plan Acute hypoxia: Requiring up to 3 L of oxygen premeditation. Most likely in setting of community-acquired pneumonia and congestive heart failure. Check CT chest without contrast Oxygen supplementation keeping saturation over 90% Pulmicort twice daily, DuoNeb every 6 hour. Check sputum culture., MRSA swab.COVID-19, influenza, RSV PCR negative. For now continue with IV ceftriaxone and oral doxycycline. If MRSA positive will add vancomycin. Congestive heart failure: Concern for flash pulmonary edema on admission. IV Lasix 40 mg twice daily. 5 mg metolazone one-time. Fluid restriction to less than 1500 cc. Strict input output charting, daily weights. Non-ST elevation ID: Recently was recommended Lexiscan stress test but refused. Troponin cycled positive. Echocardiogram results pending Continue with aspirin, statin. Switch to Coreg. Appreciate recent A1c, lipid panel. Continue with heparin drip for now. Currently chest pain-free. Lexiscan stress test on Tuesday. N.p.o. after midnight Tuesday night HALIE on CKD: Creatinine worsening to more than 4 recently from August 2024 to now from 2-4.7. Earlier in 2023 normal. Check urine lites, urine electrolyte, urine eosinophils. History of nephrolithiasis. Check renal ultrasound. Check urine drug screen. Check hepatitis panel, SPEP. Will plan for nephrology consultation. Uncontrolled hypertension: Blood pressure is elevated. Goal blood pressure less than 140/90 mmHg. Continue with home dose of amlodipine. Increase hydralazine to 50 mg 3 times daily. Switch to Coreg at 6.25 mg twice daily. Hold off on metoprolol. Callus of heel: Patient is diabetic, callus is not show any signs of infection Patient should be referred to podiatry at discharge DVT prophylaxis covered with heparin drip Renal nondialysis diabetic diet Protonix for PUD prophylaxis Transfer to CSU. PDMP PDMP Reviewed: Not Reviewed Attestations 2 Medical Necessity Statement*: Requires further hospitalization for management of acute hypoxia in setting of community-acquired pneumonia, congestive heart failure in a patient admitted for non-ST elevation ID, HALIE on CKD, uncontrolled hypertension Diagnoses Acute hypoxemic respiratory failure J96.01 Community acquired pneumonia J18.9 Laterality: unspecified laterality Non-STEMI (non-ST elevated myocardial infarction) I21.4 Essential hypertension I10 Type 2 diabetes mellitus without complication, with long-term current use of insulin E11.9; Z79.4 Diabetes mellitus jail insulin use: with jail use Diabetes mellitus complication status: without complication CKD (chronic kidney disease) stage V requiring chronic dialysis N18.6; Z99.2 Bipolar II disorder F31.81 Chronic post-traumatic stress disorder F43.12 Cannabis use disorder, moderate, dependence F12.20 Blurred vision H53.8 Anemia D64.9 Hammertoe of right foot M20.41 Nicotine dependence, cigarettes, uncomplicated F17.210
[2024-12-08] MEDS: carvedilol 6.25 mg Tablet PO (16:42)
[2024-12-08] MEDS: guaiFENesin 100 mg/5 mL UDC 10 mL 200 MG PO (16:43)
[2024-12-08 17:04] LABS: Bilirubin Urine Negative (Negative); Blood Urine Negative (Negative); Glucose Urine UA Trace (Normal); Ketones Urine Negative (Negative); Leukocyte Esterase Urine Negative (Negative); Nitrate Urine Negative (Negative); Protein Urine 3+ (Negative); Specific Gravity, Urine 1.011 (1.005-1.030); Urine Appearance Clear (CLEAR); Urine Color Yellow (Yellow); Urobilinogen Urine 0.2 mg/dL (Negative); pH Urine 5.5 (5-7)
[2024-12-08 17:09] LABS: Add Urine Microscopic? YES; Bacteria Urine None Seen /hpf; Hyaline Casts Urine 2.87 /lpf; RBC Urine 0-2 /hpf (0-2); Squamous Epithelial Cell Urine 0-5 /hpf (0-5); WBC Urine 0-5 /hpf (0-5)
[2024-12-08 17:11] LABS: Amphetamines Screen Urine Negative (Negative); Barbiturates Screen Urine Negative (Negative); Benzodiazepines Screen Urine Negative (Negative); Cocaine Screen Urine Negative (Negative); Opiate Screen Urine Negative (Negative); PCP Screen Urine Negative (Negative); THC Screen Urine Positive (Negative)
[2024-12-08 17:16] LABS: Eosinophil Urine No Eosinophils Seen; Urine Eosinophil Count 0 (0-0)
[2024-12-08 17:17] LABS: Potassium, Radom Urine 27 mmol/L; Urine Creatinine 39 mg/dL (39-259); Urine Random Chloride 105 mmol/L; Urine Random Sodium 101 mmol/L
[2024-12-08 17:34] LABS: Glucose Point of Care 211 mg/dL (70-110)
[2024-12-08] MEDS: acetaminophen 500 mg Tablet PO (17:48)
[2024-12-08 18:35] LABS: Partial Thromboplastin Time 45.5 SECONDS (23.9-36.7)
[2024-12-08 20:34] LABS: Glucose Point of Care 124 mg/dL (70-110)
[2024-12-08] MEDS: budesonide 0.5 mg/2 mL Neb INHALATION (20:35)
[2024-12-08] MEDS: heparin drip 25,000 UNIT/500 ML PREMIX 23 UNIT IV (21:37)
--- NOTE | 2024-12-08 21:42 | USCV_ITS ---
Joseph Baker Age: 59 Gender: M : 1965 Exam Date: 12/08/2024 10:42 Ordering Phys: Mariaelena Hanson MD Technologist: Eris Mckeon Exam Location: [facility] [place] Indication: nstemi BP: 143 / 66 HR: 88 Rhythm: Sinus Technical Quality: Adequate MEASUREMENTS (Male / Female) Normal Values 2D ECHO LV Diastolic Diameter PLAX 4.9 cm 4.2 - 5.9 / 3.9 - 5.3 cm IVS Diastolic Thickness 1.4 cm 0.6 - 1.0 / 0.6 - 0.9 cm IVS Systolic Thickness 2.0 cm LVPW Diastolic Thickness 2.0 cm 0.6 - 1.0 / 0.6 - 0.9 cm LVPW Systolic Thickness 3.3 cm LVOT Diameter 2.0 cm LV Ejection Fraction 2D Teich 77.2 % LV Ejection Fraction MOD 4C 60.2 % LV Ejection Fraction MOD 2C 68.2 % LV Ejection Fraction 2C AL 68.9 % LA Diameter 3.7 cm RA Systolic Volume 4C AL 45.8 ml RA Systolic Volume 4C MOD 43.9 ml LA Sys Volume AL 51.9 cm cubed LA Sys Volume Index AL 28.0 cm cubed/m squared Aorta at Sinotubular Diameter 2.4 cm IVC Diameter 1.9 cm M-MODE LA Ao Ratio MM 1.2 AV Cusp Separation MM 2.2 cm DOPPLER AV Peak Velocity 151.0 cm/s LVOT Peak Velocity 113.0 cm/s AV Area Cont Eq vti 2.4 cm squared AV Area Cont Eq pk 2.4 cm squared MV Peak Velocity 158.0 cm/s MV Area PHT 4.9 cm squared Mitral E to A Ratio 1.2 TV Peak Velocity 310.5 cm/s TR Peak Velocity 373.0 cm/s TR Peak Gradient 55.7 mmHg TR Mean Velocity 222.0 cm/s TR Mean Gradient 25.4 mmHg TR Velocity Time Integral 79.8 cm PV Peak Velocity 117.0 cm/s RV Ejection Time 0.3 s FINDINGS Left Ventricle Normal left ventricular size, systolic function and wall thickness, with no regional wall motion abnormalities. Left ventricular ejection fraction is estimated at 60 %. Grade II/IV diastolic dysfunction, moderately elevated filling pressures. Right Ventricle The right ventricle is normal in size and function. Right Atrium The right atrium is normal in size. Left Atrium The left atrium is normal in size. Mitral Valve Moderately thickened mitral valve. Moderate mitral annular calcification. No mitral valve stenosis. Mild mitral valve regurgitation. Aortic Valve Moderate aortic valve calcification. Moderate aortic valve calcification. Aortic valve sclerosis without stenosis. Trace aortic valve regurgitation. Tricuspid Valve Structurally normal tricuspid valve without significant stenosis or regurgitation. Pulmonary artery systolic pressure is normal. Pulmonic Valve Structurally normal pulmonic valve without significant stenosis. There is no pulmonic regurgitation. Pericardium Normal pericardium without effusion. Aorta Normal ascending aorta dimension. IVC The inferior vena cava appears normal. CONCLUSIONS Normal left ventricular size, systolic function and wall thickness, with no regional wall motion abnormalities. Left ventricular ejection fraction is estimated at 60 %. Grade II/IV diastolic dysfunction, moderately elevated filling pressures. Moderately thickened mitral valve. Moderate mitral annular calcification. No mitral valve stenosis. Mild mitral valve regurgitation. Moderate aortic valve calcification. Moderate aortic valve calcification. Aortic valve sclerosis without stenosis. Trace aortic valve regurgitation. There is no pericardial effusion. Right atrial pressure is around 15 mm of mercury. Mariaelena Stokes MD (Electronically Signed) Final Date: 08 December 2024 17:53 S
[2024-12-08 22:14] LABS: Hepatitis A Antibody IgM Non-Reactive (Nonreactive); Hepatitis B Core AB, Total Non-Reactive (Nonreactive); Hepatitis B Surface AB 5.9 (11.5-1000); Hepatitis B Surface Antigen Non-Reactive (Nonreactive); Hepatitis C Virus Antibody Non-Reactive (Nonreactive)
[2024-12-09] VITALS (30 sets, daily range): BP systolic 114–188; BP diastolic 48–110; PULSE 85–117; RESP 8–30; TEMP 36.8–38.3; O2SAT 90–97
[2024-12-09] MEDS: guaiFENesin 100 mg/5 mL UDC 10 mL 200 MG PO ×3 (01:18→08:31)
[2024-12-09] MEDS: acetaminophen 500 mg Tablet PO (01:18)
[2024-12-09] MEDS: FUROsemide 10 mg/mL SDV 4mL 40 MG IVP (01:18)
[2024-12-09 04:55] LABS: Basophils # 0.1 10^3/uL (0.0-0.1); Basophils % 0.8 %; Eosinophils % 0.3 %; Hematocrit 24.8 % (37-53); Lymphocytes # 0.2 10^3/uL (0.8-4.8); Lymphocytes % 2.7 %; Mean Corpuscular HGB Conc 32.3 g/dL (30-55); Mean Corpuscular Hemoglobin 29.6 pg (27-33); Mean Corpuscular Volume 91.9 fl (82-101); Mean Platelet Volume 11.2 fL (7.4-10.4); Monocytes # 0.5 10^3/uL (0.2-0.9); Monocytes % 6.6 %; Neutrophils % 89.1 %; Nucleated Red Blood Cells % 0 %; Platelet Count 227 10^3/cmm (157-399); Red Cell Distribution Width 13.5 % (12.1-15.1); White Blood Count 7.52 10^3/uL (3.29-11.43)
[2024-12-09 05:20] LABS: Alanine Aminotransferase 18 U/L (0-41); Albumin Level 3.6 g/dL (3.5-5.2); Alkaline Phosphatase 85 U/L (40-130); Anion Gap 23.5 (5-19); Aspartate Amino Transferase 17 U/L (0-40); Blood Urea Nitrogen 62 mg/dL (6-20); Calcium 8.3 mg/dL (8.5-10.5); Carbon Dioxide 20 mmol/L (22-29); Chloride 99 mmol/L (98-107); Creatinine Clr Calc Pharmacy 15.6358; Globulin 2.8 g/dL (1.3-4.6); Glucose 174 mg/dL (65-115); Magnesium 1.6 mg/dL (1.7-2.3); Osmolality Calculated 310 mOsm/kg (285-295); Potassium 3.5 mmol/L (3.5-5.1); Sodium 139 mmol/L (136-145); Total Bilirubin 0.2 mg/dL (0.15-1.2); Total Protein 6.4 g/dL (6.6-8.7)
[2024-12-09 05:38] LABS: Folate Level 6.9 ng/mL (4.5-32.2)
[2024-12-09 08:26] LABS: Glucose Point of Care 210 mg/dL (70-110)
--- NOTE | 2024-12-09 08:28 | CTR_ITS ---
PROCEDURE INFORMATION: Exam: CT Abdomen And Pelvis Without Contrast Exam date and time: 12/09/2024 8:46 AM Age: 59 years old Clinical indication: Abdominal tenderness; Additional info: Arf TECHNIQUE: Imaging protocol: Computed tomography of the abdomen and pelvis without contrast. Radiation optimization: All CT scans at this facility use at least one of these dose optimization techniques: automated exposure control; mA and/or kV adjustment per patient size (includes targeted exams where dose is matched to clinical indication); or iterative reconstruction. COMPARISON: CT abdomen pelvis [facility] [id number] 10/05/2024 1:01 AM RADIATION DOSE METRICS: Total DLP (mGy-cm): 529.94 FINDINGS: Lungs: See Pleural spaces finding. Pleural spaces: Small bilateral pleural effusions with overlying passive atelectasis. Calcified granuloma right lung base. Multiple patchy and nodular opacities in the bilateral lower mid and lower lungs. May represent aspiration pneumonitis, infectious or inflammatory etiology. Recommend correlation. Heart: Low-density cardiac blood pool consistent with anemia. Liver: Normal. No mass. Gallbladder and biliary ducts: Normal. No calcified stones. No ductal dilation. Pancreas: Multiple punctate parenchymal calcifications in the pancreas consistent with prior pancreatitis. No ductal dilatation, mass, or acute inflammatory change. Spleen: Normal. No splenomegaly. Adrenal glands: Normal. No mass. Kidneys and ureters: Nonobstructive 9 mm calcification in the right superior pole. No further follow-up needed. No renal or ureteral calculi or obstruction bilaterally. Stomach and bowel: No bowel obstruction or acute inflammation. Mild colonic diverticulosis. Appendix: No evidence of appendicitis. Intraperitoneal space: Unremarkable. No free air. No significant fluid collection. Vasculature: Unremarkable. No abdominal aortic aneurysm. Lymph nodes: Unremarkable. No enlarged lymph nodes. Urinary bladder: Unremarkable as visualized. Reproductive: Mildly distended bladder with mild wall thickening, possibly due to prostatomegaly. The prostate gland is enlarged. Bones/joints: Superior endplate Schmorl's nodes at L3 and L4. Soft tissues: Mild subcutaneous edema in the bilateral flanks. CT/CT abdomen pelvis [facility] [id number] IMPRESSION: 1. No bowel obstruction or acute inflammation. 2. Small bilateral pleural effusions with overlying passive atelectasis. Calcified granuloma right lung base. 3. Multiple patchy and nodular opacities in the bilateral lower mid and lower lungs. May represent aspiration pneumonitis, infectious or inflammatory etiology. Recommend correlation. 4. Mild colonic diverticulosis.
[2024-12-09] MEDS: insulin lispro 100 unit/1 mL SUBCUT ×2 (08:31→16:59)
[2024-12-09] MEDS: ipratropium-albuterol 3 mL Neb INHALATION (09:00)
[2024-12-09] MEDS: budesonide 0.5 mg/2 mL Neb INHALATION ×2 (09:00→20:38)
[2024-12-09] MEDS: pantoprazole DR 40 mg Tablet PO (09:45)
[2024-12-09] MEDS: clopidogrel 75 mg Tablet PO (09:45)
[2024-12-09] MEDS: ezetimibe 10 mg Tablet PO (09:45)
[2024-12-09] MEDS: buPROPion XL (24 HR) 150 mg Tablet PO (09:45)
[2024-12-09] MEDS: carvedilol 6.25 mg Tablet PO ×2 (09:46→16:59)
[2024-12-09] MEDS: divalproex DR 500 mg Tablet PO ×2 (09:46→21:13)
[2024-12-09] MEDS: doxycycline 100 mg Tablet PO (09:48)
[2024-12-09] MEDS: amlodipine 10 mg Tablet PO (09:48)
[2024-12-09] MEDS: aspirin 81 mg EC Tablet PO (09:48)
[2024-12-09] MEDS: cefTRIAXone 1,000 MG in sodium chloride 0.9% (plus) 50 ML 100 MG IV (09:50)
[2024-12-09] MEDS: sodium chloride 0.9% 1,000 ML 75 ML IV (09:52)
[2024-12-09] MEDS: hyDRALAzine 10 mg Tablet 50 MG PO ×3 (09:55→21:13)
[2024-12-09] MEDS: nicotine 14 mg Patch 1 PATCH TRANSDERMA (09:56)
[2024-12-09] MEDS: ondansetron 2 mg/ML SDV 2 mL 4 MG IVP (09:59)
--- NOTE | 2024-12-09 10:47 | PM.CONSULT ---
Providers/Reason For Consult Consulting Physician/Specialty*: [facility]/Nephrology Reason for Consult*: Acute on CKD Attending Physician: Terence Novoa MD Primary Care Provider: Pierce Justice MD History of Present Illness History of Present Illness Joseph Baker is a 59 year old male 59-year-old male with past medical history of hypertension, poorly controlled bipolar disorder diabetes type 2, chronic anemia chronic kidney disease. He was recently admitted for management of NSTEMI. patient admitted for shortness of breath and chest pain. Creatinine was 1.2 in 2023, that has progressively gotten worse over time up to the 4 range recently. Patient presents to the emergency department due to shortness of breath and chest pain. Patient was hypoxic on presentation he noted to have elevated troponin. Creatinine was 4.1 on presentation worsened to 5.0 today. Blood pressures poorly controlled patient has not seen nephrology in the past.. Review of Systems Narrative: NEGATIVE Medications/Allergies Home Medications ?Medication ?Instructions ?Recorded ?Confirmed ?Last Taken ?Type diabetic shoes w/ 3 inserts #1 ea 09/06/24 12/07/24 Unknown Rx metformin 1,000 mg tablet 500 mg (1/2 x 1,000 mg) PO BID #30 09/12/24 12/07/24 09/12/24 Rx tabs aspirin 81 mg tablet,delayed 81 mg PO DAILY #90 tabs 10/06/24 12/07/24 12/07/24 Rx release clonidine HCl 0.1 mg tablet 0.1 mg PO DAILY PRN hypertensive 11/26/24 12/07/24 Unknown Rx emergency #7 tabs divalproex 250 mg tablet,delayed 250 mg PO .7 pm #30 tabs 11/26/24 12/07/24 12/06/24 Rx release (Depakote) hydrochlorothiazide 25 mg tablet 25 mg PO DAILY 11/30/24 12/07/24 12/07/24 History amlodipine 10 mg tablet 10 mg PO DAILY #90 tabs 12/06/24 12/07/24 12/07/24 Rx ezetimibe 10 mg tablet 10 mg PO DAILY #90 tabs 12/06/24 12/07/24 Unknown Rx pantoprazole 40 mg tablet,delayed 40 mg PO DAILY 12/06/24 12/07/24 12/07/24 History release bupropion HCl 150 mg 24 hr tablet, 150 mg PO DAILY 12/07/24 12/07/24 12/07/24 History extended release hydralazine 10 mg tablet 10 mg PO TID PRN Anxiety 12/07/24 12/07/24 Unknown History metoprolol succinate 50 mg 25 mg PO DAILY 12/07/24 12/07/24 12/07/24 History tablet,extended release 24 hr Allergies Allergy/AdvReac Type Severity Reaction Status Date / Time No Known Allergies Allergy Verified 12/06/24 13:24 Current Medications Generic Name Dose Route Start Last Admin Trade Name Tiara PRN Reason Stop Dose Admin Acetaminophen 500 mg 12/07/24 21:42 12/09/24 01:18 Acetaminophen 500 Mg Tablet PO 500 mg Q4H PRN Administration fever Albuterol/Ipratropium 3 ml 12/08/24 14:00 12/09/24 09:00 Ipratropium-Albuterol 3 Ml Neb INHALATION 3 ml Q6H.RESP EVELIO Administration Amlodipine Besylate 10 mg 12/08/24 09:00 12/09/24 09:48 Amlodipine 10 Mg Tablet PO 10 mg DAILY EVELIO Administration Aspirin 81 mg 12/08/24 09:00 12/09/24 09:48 Aspirin 81 Mg Ec Tablet PO 81 mg DAILY EVELIO Administration Budesonide 0.5 mg 12/08/24 20:00 12/09/24 09:00 Budesonide 0.5 Mg/2 Ml Neb INHALATION 0.5 mg BID.RESPIRATORY EVELIO Administration Bupropion HCl 150 mg 12/08/24 09:00 12/09/24 09:45 Bupropion Xl (24 Hr) 150 Mg Tablet PO 150 mg DAILY EVELIO Administration Carvedilol 6.25 mg 12/08/24 18:00 12/09/24 09:46 Carvedilol 6.25 Mg Tablet PO 6.25 mg BID EVELIO Administration Clopidogrel Bisulfate 75 mg 12/08/24 09:00 12/09/24 09:45 Clopidogrel 75 Mg Tablet PO 75 mg DAILY EVELIO Administration Divalproex Sodium 500 mg 12/07/24 22:00 12/09/24 09:[address] 500 Mg Tablet PO 500 mg Q12H EVELIO Administration Doxycycline Monohydrate 100 mg 12/08/24 09:00 12/09/24 09:48 Doxycycline 100 Mg Tablet PO 100 mg BID EVELIO Administration Protocol Ezetimibe 10 mg 12/08/24 09:00 12/09/24 09:45 Ezetimibe 10 Mg Tablet PO 10 mg DAILY EVELIO Administration Guaifenesin 200 mg 12/08/24 16:25 12/09/24 08:31 Guaifenesin 100 Mg/5 Ml Udc 10 Ml PO 200 mg Q4H PRN Administration COUGH AND CONGESTION Heparin Sodium (Porcine) 0 unit 12/07/24 20:01 12/08/24 20:03 Heparin 5,000 Unit/Ml Inj 1 Ml IVP 1,500 unit PRN PRN Administration Heparin Weight Based Protocol -Subsequent Bolus Protocol Hydralazine HCl 50 mg 12/08/24 15:00 12/09/24 09:55 Hydralazine 10 Mg Tablet PO 50 mg TID EVELIO Administration Heparin Sodium/Sodium Chloride 25,000 unit in 500 mls @ 0 mls/hr 12/07/24 20:15 12/09/24 06:34 Heparin Drip IV 13.78 unit/kg/hr CONT EVELIO 20 mls/hr Titration Protocol Per Protocol Ceftriaxone Sodium 1,000 mg/ 50 mls @ 100 mls/hr 12/08/24 09:00 12/09/24 09:50 Sodium Chloride IV 100 mls/hr DAILY EVELIO Administration Protocol Sodium Chloride 1,000 mls @ 75 mls/hr 12/09/24 08:00 12/09/24 09:52 Sodium Chloride 0.9% IV 75 mls/hr .[id number] EVELIO Administration Insulin Human Lispro 0 unit 12/07/24 21:42 12/09/24 08:31 Insulin Lispro 100 Unit/1 Ml SUBCUT 6 unit WM&BEDTIME EVELIO Administration Protocol Nicotine 1 patch 12/08/24 09:00 12/09/24 09:56 Nicotine 14 Mg Patch TRANSDERMA 1 patch DAILY EVELIO Administration Ondansetron HCl 4 mg 12/07/24 21:42 12/09/24 09:59 Ondansetron 2 Mg/Ml Sdv 2 Ml IVP 4 mg Q6H PRN Administration NAUSEA AND VOMITING Pantoprazole Sodium 40 mg 12/08/24 09:00 12/09/24 09:[address] 40 Mg Tablet PO 40 mg DAILY EVELIO Administration PFSH Acute PFSH: Medical History (Updated 12/09/24 @ 11:04 by Siobhan Tubbs MD) Blurred vision CKD (chronic kidney disease) stage V requiring chronic dialysis Nicotine dependence, cigarettes, uncomplicated Bereavement Mother in February 2024 Cannabis use disorder, moderate, dependence Chronic post-traumatic stress disorder Bipolar II disorder Impaired visual perception Psychiatric care Anemia 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 Social History Smoking and tobacco/nicotine status: current some day tobacco/nicotine user Alcohol intake: current Alcohol intake frequency: holidays/special occasions only Alcohol type: wine Vitals/I&O/Wt Last Vital Signs Temp 98.2 F 12/09/24 05:00 Pulse 112 H 12/09/24 10:00 Resp 22 H 12/09/24 10:00 BP 188/100 12/09/24 10:00 Pulse Ox 91 12/09/24 10:00 O2 Del Method Nasal Cannula 12/09/24 09:00 O2 Flow Rate 3 12/09/24 09:00 FiO2 65 12/07/24 16:26 12/08/24 12/09/24 12/09/24 22:59 06:59 14:59 Intake Total 772.45 / 1403.00 1165.85 / 2568.85 100 / 100 Output Total 450 / 450 850 / 1300 300 / 300 Balance 322.45 / 953.00 315.85 / 1268.85 -200 / -200 Weight last 48 hrs Weight 73.845 kg Weight 73.346 kg Weight 73.346 kg Weight 72.575 kg Physical Exam Narrative: awake , alert , No distress PEERLA S1S2 RRR per report Lungs clear per report No edema Data 12/09/24 04:18 12/09/24 04:18 Micro: Microbiology 12/07/24 20:19 Blood Culture - Preliminary Blood NEGATIVE TO DATE 12/07/24 20:09 Blood Culture - Preliminary Blood NEGATIVE TO DATE A&P Assessment and plan (1) Acute on chronic renal failure: Plan 1. Acute on CKD 4/5 : noted Cr rapidly rising in the last few months ,Reports NSAID use - was using 2-3 tabs of Ibuprofen daily for few months but stopped 2 months ago . Suspect rapid progression of CKD due to poorly controlled bPs , NSAID use -Renal US normal , UA with no blood , 3+ protein -Will check Complements , KASEY, Urine protein /Cr ratio , Hep panel ,ANCA - Agree with IVFs - avoid IV contrast studies 2. NSTEMI ; management per primary team , on heparin drip 3. HTN : Poorly controlled , adjusting meds 4. CHF : diastolic CHF , ef 60 % . S/p diuresis 5. Anemia : Hb 8.0 , Check Iron studies , Will order Epo PDMP PDMP Reviewed: Not Reviewed Consult Attestations Medical Necessity Statement: per albaro Coding Level of Care Code Acute Code for Chg Fwd Diagnoses Acute on chronic renal failure N17.9; N18.9
[2024-12-09 11:07] LABS: ABG PCO2 37.4 mmHg (35-45); ABG PH Result 7.43 (7.35-7.45); Alveolar-Arterial Oxygen Gradi 17.9 mmHg (5-10); Arterial Blood Gas Hematocrit 25.8 % (42-52); Base Excess ABG 0.7 mmol/L (-2.0-2.0); Blood Gas Allen Test Pos; Blood Gas Operator Identificat GD; Blood Gas Sample Site Radial, left; Blood Gas Sample Type Arterial; Carboxyhemoglobin 0.3 %THgb (0.4-20.1); HCO3 ABG 24.9 mmol/L (22-26); HGB O2 Sat 81.1 % (95-100); Ionized Calcium Level - ABG 1.1 mmol/L (1.1-1.4); Methemoglobin 1.5 % (0.4-1.5); Oxygen Device NC; Oxygen Saturation ABG 82.6; PO2 FiO2 Ratio Arterial Blood 146; Potassium Level - ABG 2.9 mmol/L (3.5-5.0); Total Hemoglobin 8.4 g/dL (14-18)
[2024-12-09 11:32] LABS: Glucose Point of Care 88 mg/dL (70-110)
[2024-12-09 11:37] LABS: Complement C3 120 mg/dL (90-180)
[2024-12-09 11:47] LABS: Hepatitis B Surface AB < 3.5 (11.5-1000); Hepatitis B Surface Antigen Non-Reactive (Nonreactive); Hepatitis C Virus Antibody Non-Reactive (Nonreactive)
[2024-12-09] MEDS: epoetin alfa 20,000 unit/mL MDV (ESRD) 20000 UNIT SUBCUT (11:52)
[2024-12-09] MEDS: cloNIDine 0.1 mg/24 hr Patch 1 PATCH TRANSDERMA (11:53)
[2024-12-09] MEDS: ALPRAZolam 0.5 mg Tablet PO (12:09)
[2024-12-09 13:06] LABS: Partial Thromboplastin Time 69.3 SECONDS (23.9-36.7)
[2024-12-09] MEDS: levalbuterol 0.63 mg/3 mL Neb INHALATION ×2 (14:50→20:38)
[2024-12-09] MEDS: ipratropium 0.5 mg/2.5 mL Neb INHALATION ×2 (14:50→20:38)
--- NOTE | 2024-12-09 15:24 | P.PN_ITS ---
Subjective 2 Subjective: No acute events overnight. Today morning examination patient states he is feeling nauseous. Patient was found to be hypoxic with saturation in mid 80s. He was transferred over to high flow nasal cannula. He denies any chest pain. No vomiting. Appreciate urine output. Blood pressure is elevated. Vitals/I&O/Wt Last Vital Signs Temp 98.2 F 12/09/24 05:00 Pulse 103 H 12/09/24 15:00 Resp 20 H 12/09/24 14:51 BP 160/86 12/09/24 12:00 Pulse Ox 91 12/09/24 14:51 O2 Del Method High Flow Nasal Cannula 12/09/24 14:51 O2 Flow Rate 9 12/09/24 14:51 FiO2 65 12/07/24 16:26 12/09/24 12/09/24 12/09/24 06:59 14:59 22:59 Intake Total 1165.85 / 2568.85 250 / 250 Output Total 850 / 1300 1000 / 1000 Balance 315.85 / 1268.85 -750 / -750 Weight last 48 hrs Weight 73.845 kg Weight 73.346 kg Weight 73.346 kg Weight 72.575 kg Physical Exam 2 Narrative: General: No acute distress, AO x3, emotionally labile HEENT: PERRLA, pupils bilaterally equal and reactive Chest: Bilateral bronchial breath sounds all lung lung oconnell, occasional rhonchi all over lung oconnell, coarse crackles present right more than left CVS: S1-S2 regular, no murmurs, no tachycardia, no gallops, no rubs Abdomen: Soft, nontender, no organomegaly, bowel sounds present Neuro: No focal deficits, no facial deformity, AO x3, power 5/5 in all limbs Data 12/09/24 04:18 12/09/24 04:18 Micro: Microbiology 12/08/24 16:50 Gram Stain - Final Sputum - Expectorated Sputum Sputum Culture - Preliminary 12/07/24 20:19 Blood Culture - Preliminary Blood NEGATIVE TO DATE 12/07/24 20:09 Blood Culture - Preliminary Blood NEGATIVE TO DATE A&P Assessment and plan (1) Acute hypoxemic respiratory failure: (2) Community acquired pneumonia: Qualifiers: Laterality: unspecified laterality Qualified Code(s): J18.9 - Pneumonia, unspecified organism (3) Non-STEMI (non-ST elevated myocardial infarction): (4) Essential hypertension: (5) Type 2 diabetes mellitus: Qualifiers: Diabetes mellitus intermission coordinator insulin use: with long-term use Diabetes mellitus complication status: without complication Qualified Code(s): E11.9 - Type 2 diabetes mellitus without complications; Z79.4 - USP (current) use of insulin (6) CKD (chronic kidney disease) stage V requiring chronic dialysis: (7) Bipolar II disorder: (8) Chronic post-traumatic stress disorder: (9) Cannabis use disorder, moderate, dependence: (10) Blurred vision: (11) Anemia: (12) Hammertoe of right foot: (13) Nicotine dependence, cigarettes, uncomplicated: Plan Acute hypoxia: Requiring up to 3 L of oxygen premeditation. Most likely in setting of community-acquired pneumonia, bilateral pleural effusion and congestive heart failure. Appreciate CT chest without contrast Oxygenation worsening today. Saturating mid 80s on 5 L. Check ABG. Oxygen supplementation keeping saturation over 90%. Transition to high flow nasal cannula for now. Pulmicort twice daily, ipratropium, Xopenex every 4 hour. Awaiting sputum culture. MRSA swab, COVID-19, influenza, RSV PCR negative. As patient is clinically worsening for now we will transition over from IV ceftriaxone and oral doxycycline to IV meropenem. Check respiratory viral panel. Start on Solu-Medrol 40 mg every 8 hourly Check chest x-ray. Congestive heart failure: Concern for flash pulmonary edema on admission. Appreciate urine output in last 24 hours. Patient's renal functions worsening today. Concern for intravascular volume depletion. Start on gentle IV hydration with normal saline 75 cc/h for 1 bag. Watch for fluid overload. Fluid restriction to less than 1500 cc. Strict input output charting, daily weights. Non-ST elevation MS: Recently was recommended Lexiscan stress test but refused. Troponin cycled positive. Echocardiogram shows an EF of 60%, grade 2 diastolic dysfunction, mild MR, moderate aortic valve calcification with aortic valve sclerosis, elevated RA pressures. Continue with aspirin, statin, Coreg. Appreciate recent A1c, lipid panel. Continue with heparin drip for now. Currently chest pain-free. Lexiscan stress test in AM. N.p.o. after midnight Tuesday night HALIE on CKD: Creatinine continued to worsen. 5 today. Most likely in setting of uncontrolled chronic hypertension, chronic use of NSAIDs as an outpatient. Seems to be gradually worsening over last 6 months. Down to 1.4 in May 2024 and 1.2 in January [address]24. Check CT abdomen pelvis. Will consult nephrology. Medical reconciliation done for nephrotoxic drugs. Uncontrolled hypertension: Blood pressure is elevated. Goal blood pressure less than 140/90 mmHg. Continue with amlodipine, hydralazine 50 mg 3 times daily, Coreg 6.25 mg twice daily. Add clonidine patch 0.1. Uptitrate as for goal blood pressure. IV hydralazine 10 mg every 4 hours as needed for systolic blood pressure more than 160 mmHg. Callus of heel: Patient is diabetic, callus is not show any signs of infection Patient should be referred to podiatry at discharge DVT prophylaxis covered with heparin drip Renal nondialysis diabetic diet Protonix for PUD prophylaxis Transfer back to ICU as patient's oxygen supplementation is increasing today. PDMP PDMP Reviewed: Not Reviewed Attestations 2 Medical Necessity Statement*: Requires further hospitalization for management of respiratory failure in setting of community-acquired pneumonia, diastolic heart failure, non-ST elevation MS in a patient with concerns for renal failure, uncontrolled hypertension Critical Care Time: The high probability of a clinically significant, sudden or life threatening deterioration of the patient's [pulmonary, cardiac, renal] system(s) required my full and direct attention, intervention and personal management. The critical care time is as shown. This time is in addition to time spent performing any reported procedures but includes the following: [x] Data and vital sign review and interpretation [x] Patient assessment, examination and intervention [x] Documentation [x] Medication orders and management Critical Care Time (min): 80 Coding Level of Care Code Critical Care >/= 30 minutes Critical care time (in minutes): 80 The high probability of a clinically significant, sudden or life threatening deterioration, as referenced in this documentation, required my full and direct attention, intervention and personal management. The critical care time shown is in addition to time spent performing any reported separately billable procedures and includes the following: [x] Data and vital sign review and interpretation [x ] Patient assessment, examination and intervention [x] Medication orders and management [x] Patient/Family updates as able [x] Care Coordination and Documentation. Other Coding Information RADHAs Katiuska Herman brand-new patient from [facility] okay I just want a make sure to see if she has started the patient on free water flushes in room 7 and started today morning but I do not see anything in the chart order for just on a make sure that she did that on not in 250 every 6 hours in 7 yes and if BG is around 90 to talk to her regarding room 12 PCP settle down on not thank you this patient has a high probability of clinically significant, sudden or life threatening deterioration of the patient's (neurological/pulmonary/cardiac/renal/ID/endocrine) systems required my full, direct attention, the highest level of physician preparedness for urgent intervention and personal management. I managed/supervised life or organ supporting interventions that required frequent physician assessment. I devoted my full attention in the ICU to the direct care of this patient for the period of time indicated above. Time I spent with family or surrogate(s) is included only if the patient was incapable of providing necessary information or participating in decision making. This time includes the following services provided: Telemetry review Hemodynamic interpretation, assessment and management Review and interpretation of CXR Review and interpretation of lab values Review and interpretation of microbiologic data and culture results Review of medications and administration Review and interpretation of Nutrition requirements and management Discussion of management with other consultants and services Clinical update to family members Diagnoses Acute hypoxemic respiratory failure J96.01 Community acquired pneumonia J18.9 Laterality: unspecified laterality Non-STEMI (non-ST elevated myocardial infarction) I21.4 Essential hypertension I10 Type 2 diabetes mellitus without complication, with long-term current use of insulin E11.9; Z79.4 Diabetes mellitus intermission coordinator insulin use: with intermission coordinator use Diabetes mellitus complication status: without complication CKD (chronic kidney disease) stage V requiring chronic dialysis N18.6; Z99.2 Bipolar II disorder F31.81 Chronic post-traumatic stress disorder F43.12 Cannabis use disorder, moderate, dependence F12.20 Blurred vision H53.8 Anemia D64.9 Hammertoe of right foot M20.41 Nicotine dependence, cigarettes, uncomplicated F17.210
[2024-12-09] MEDS: benzonatate 100 mg Capsule PO ×2 (15:29→21:13)
--- NOTE | 2024-12-09 15:32 | XRR_ITS ---
PROCEDURE INFORMATION: Exam: XR Chest Exam date and time: 12/09/2024 4:52 PM Age: 59 years old Clinical indication: Shortness of breath; Respiratory failure TECHNIQUE: Imaging protocol: Radiologic exam of the chest. Views: 1 view. COMPARISON: CT chest con [id number] 12/08/2024 12:53 PM FINDINGS: Lungs: Left basilar and greater than right basilar airspace opacities reflecting pneumonia. Pleural spaces: Small bilateral pleural effusions. No pneumothorax. Heart/Mediastinum: Unremarkable. No cardiomegaly. Bones/joints: Unremarkable. XR/XR chest 1V portable [id number] IMPRESSION: As above.
[2024-12-09 16:06] LABS: Anion Gap 26.5 (5-19); Blood Urea Nitrogen 63 mg/dL (6-20); Calcium 7.9 mg/dL (8.5-10.5); Carbon Dioxide 18 mmol/L (22-29); Chloride 95 mmol/L (98-107); Creatinine Clr Calc Pharmacy 15.3292; Glomerular Filtration Rate 11.8 mL/min (90-130); Glucose 143 mg/dL (65-115); Osmolality Calculated 302 mOsm/kg (285-295); Potassium 3.5 mmol/L (3.5-5.1); Sodium 136 mmol/L (136-145)
--- NOTE | 2024-12-09 16:07 | USR_ITS ---
PROCEDURE INFORMATION: Exam: US Retroperitoneal, Complete, Kidneys and Bladder Exam date and time: 12/09/2024 10:04 AM Age: 59 years old Clinical indication: Condition or disease; Other: Renal dysfunction, history of nephrolithiasis TECHNIQUE: Imaging protocol: Real-time ultrasound of the retroperitoneum with image documentation. Complete exam focused on the bilateral kidneys and urinary bladder. COMPARISON: CT abdomen pelvis con [id number] 12/09/2024 8:46 AM FINDINGS: Right kidney: Normal. No stones. No hydronephrosis. Left kidney: Normal. No stones. No hydronephrosis. Urinary bladder: Unremarkable. US/US renal BI* [id number] IMPRESSION: Unremarkable kidneys and bladder.
[2024-12-09 16:34] LABS: Glucose Point of Care 162 mg/dL (70-110)
[2024-12-09] MEDS: methylPREDNISolone sod succ 40 mg/mL INJ IVP ×2 (16:57→23:16)
[2024-12-09] MEDS: water for injection-sterile 10 ML 1000 ML (16:58)
[2024-12-09] MEDS: meropenem 1,000 mg SDV 1000 MG IVP (16:58)
[2024-12-09 17:55] LABS: Creatinine Urine, Random 60 mg/dL (39-259)
[2024-12-09 17:56] LABS: Urine Creatinine 62 mg/dL (39-259)
[2024-12-09 18:08] LABS: Microalbum Creatinine Ratio Ur 4783 mg/dL (0-20); Microalbumin Random Urine 287 ug/dL (0-20); UPRO/UCREAT Ratio 6.69 mg/mg CR; Urine Protein Random 415 mg/dL
[2024-12-09 19:27] LABS: Adenovirus Not Detected (NOT DETECT); Chlamydia Pneumoniae Not Detected (NOT DETECT); Coronavirus 229E,HKU1,NL63,OC4 Not Detected (NOT DETECT); Human Metapneumovirus Not Detected (NOT DETECT); Human Rhinovirus/Enterovirus Not Detected (NOT DETECT); Influenza A Detected (NOT DETECT); Influenza A H1 Not Detected (NOT DETECT); Influenza A H1-2009 Detected (NOT DETECT); Influenza A H3 Not Detected (NOT DETECT); Influenza B Not Detected (NOT DETECT); Mycoplasma Pneumoniae Not Detected (NOT DETECT); Parainfluenza Virus Type 1 Not Detected (NOT DETECT); Parainfluenza Virus Type 2 Not Detected (NOT DETECT); Parainfluenza Virus Type 3 Not Detected (NOT DETECT); Parainfluenza Virus Type 4 Not Detected (NOT DETECT); Respiratory Syncytial Virus A Not Detected (NOT DETECT); Respiratory Syncytial Virus B Not Detected (NOT DETECT); SARS-COV-2 Not Detected (NOT DETECT)
[2024-12-09 19:57] LABS: Partial Thromboplastin Time 99.2 SECONDS (23.9-36.7)
[2024-12-09 20:37] LABS: Glucose Point of Care 91 mg/dL (70-110)
[2024-12-09] MEDS: heparin drip 25,000 UNIT/500 ML PREMIX 16 UNIT IV (23:17)
[2024-12-10] VITALS (40 sets, daily range): BP systolic 104–177; BP diastolic 51–86; PULSE 73–104; RESP 12–22; TEMP 37.2–37.4; O2SAT 87–99
[2024-12-10] MEDS: levalbuterol 0.63 mg/3 mL Neb INHALATION ×6 (00:56→20:19)
[2024-12-10] MEDS: ipratropium 0.5 mg/2.5 mL Neb INHALATION ×6 (00:56→20:19)
[2024-12-10 05:00] LABS: Basophils % 0.3 %; Eosinophils % 0.2 %; Hematocrit 23.2 % (37-53); Lymphocytes # 0.2 10^3/uL (0.8-4.8); Lymphocytes % 3.2 %; Mean Corpuscular HGB Conc 30.2 g/dL (30-55); Mean Corpuscular Volume 99.6 fl (82-101); Mean Platelet Volume 11.6 fL (7.4-10.4); Monocytes # 0.2 10^3/uL (0.2-0.9); Monocytes % 3.4 %; Neutrophils % 92.4 %; Nucleated Red Blood Cells % 0 %; Platelet Count 239 10^3/cmm (157-399); Red Blood Count 2.33 10^6/uL (3.85-5.65); Red Cell Distribution Width 13.6 % (12.1-15.1); White Blood Count 6.17 10^3/uL (3.29-11.43)
[2024-12-10 05:12] LABS: Partial Thromboplastin Time 97.3 SECONDS (23.9-36.7)
[2024-12-10 05:18] LABS: Magnesium 1.7 mg/dL (1.7-2.3)
[2024-12-10 05:25] LABS: Alanine Aminotransferase 18 U/L (0-41); Albumin Level 3.1 g/dL (3.5-5.2); Alkaline Phosphatase 72 U/L (40-130); Anion Gap 29.7 (5-19); Aspartate Amino Transferase 26 U/L (0-40); Calcium 7.6 mg/dL (8.5-10.5); Carbon Dioxide 16 mmol/L (22-29); Chloride 93 mmol/L (98-107); Creatinine Clr Calc Pharmacy 13.2507; Globulin 2.4 g/dL (1.3-4.6); Glomerular Filtration Rate 9.9 mL/min (90-130); Glucose 147 mg/dL (65-115); Osmolality Calculated 307 mOsm/kg (285-295); Potassium 3.7 mmol/L (3.5-5.1); Sodium 135 mmol/L (136-145); Total Bilirubin 0.2 mg/dL (0.15-1.2); Total Protein 5.5 g/dL (6.6-8.7)
[2024-12-10 05:58] LABS: Blood Urea Nitrogen 81 mg/dL (6-20)
[2024-12-10] MEDS: regadenoson 0.4 Mg/5 ml Syringe IVP (07:26)
[2024-12-10 08:46] LABS: Glucose Point of Care 231 mg/dL (70-110)
[2024-12-10] MEDS: methylPREDNISolone sod succ 40 mg/mL INJ IVP ×2 (08:57→21:05)
[2024-12-10] MEDS: insulin lispro 100 unit/1 mL SUBCUT ×4 (08:58→21:06)
[2024-12-10] MEDS: hyDRALAzine 10 mg Tablet 50 MG PO (08:59)
[2024-12-10] MEDS: aspirin 81 mg EC Tablet PO (08:59)
[2024-12-10] MEDS: pantoprazole DR 40 mg Tablet PO (08:59)
[2024-12-10] MEDS: ezetimibe 10 mg Tablet PO (08:59)
[2024-12-10] MEDS: benzonatate 100 mg Capsule PO ×3 (08:59→21:05)
[2024-12-10] MEDS: carvedilol 6.25 mg Tablet PO ×2 (08:59→17:20)
[2024-12-10] MEDS: buPROPion XL (24 HR) 150 mg Tablet PO (08:59)
[2024-12-10] MEDS: clopidogrel 75 mg Tablet PO (08:59)
[2024-12-10] MEDS: amlodipine 10 mg Tablet PO (08:59)
[2024-12-10] MEDS: oseltamivir phosphate 30 mg Capsule PO (08:59)
[2024-12-10] MEDS: divalproex DR 500 mg Tablet PO ×2 (09:00→21:05)
[2024-12-10] MEDS: nicotine 14 mg Patch 1 PATCH TRANSDERMA (09:00)
--- NOTE | 2024-12-10 09:12 | PM.PN ---
Subjective Subjective: Patient waiting for stress test Currently on 9 L nasal cannula No active chest discomfort or respiratory distress Patient is stating that he is nauseous does not want to eat much Vitals/I&O/Wt Last Vital Signs Temp 99.0 F 12/10/24 05:30 Pulse 103 H 12/10/24 09:00 Resp 22 H 12/10/24 09:00 BP 162/86 12/10/24 09:00 Pulse Ox 90 12/10/24 09:00 O2 Del Method High Flow Nasal Cannula 12/10/24 05:03 O2 Flow Rate 9 12/10/24 05:03 FiO2 50 12/10/24 01:14 12/09/24 12/10/24 12/10/24 22:59 06:59 14:59 Intake Total 554.15 / 804.15 1480 / 2284.15 480 / 480 Output Total 300 / 1300 500 / 1800 Balance 254.15 / -495.85 980 / 484.15 480 / 480 Weight last 48 hrs Weight 73.845 kg Weight 73.845 kg Physical Exam Narrative: Awake and alert No active sign of fluid overload No active distress Pleasant and cooperative Watching television Hypertensive Mild tachycardia Abdomen soft Currently on 9 L high flow nasal cannula No audible stridor or wheezing S1, S2 tachycardia Data 12/10/24 02:52 12/10/24 02:52 Micro: Microbiology 12/08/24 16:50 Gram Stain - Final Sputum - Expectorated Sputum Sputum Culture - Preliminary A&P Assessment and plan (1) Acute hypoxemic respiratory failure: (2) Community acquired pneumonia: Qualifiers: Laterality: unspecified laterality Qualified Code(s): J18.9 - Pneumonia, unspecified organism (3) Non-STEMI (non-ST elevated myocardial infarction): (4) Essential hypertension: (5) Type 2 diabetes mellitus: Qualifiers: Diabetes mellitus exterminator helper termite insulin use: with exterminator helper termite use Diabetes mellitus complication status: without complication Qualified Code(s): E11.9 - Type 2 diabetes mellitus without complications; Z79.4 - skilled nursing (current) use of insulin (6) CKD (chronic kidney disease) stage V requiring chronic dialysis: (7) Bipolar II disorder: (8) Chronic post-traumatic stress disorder: (9) Cannabis use disorder, moderate, dependence: (10) Blurred vision: (11) Anemia: (12) Hammertoe of right foot: (13) Nicotine dependence, cigarettes, uncomplicated: (14) Influenza: Plan Acute hypoxia: On the high flow 9 L nasal cannula Influenza A positive Continue antibiotics for superimposed bacterial infection concern Sputum culture results are pending Afebrile this morning Congestive heart failure: Patient making good amount of urine Positive fluid balance Will touch base with nephro Non-ST elevation DE: No active chest pain, stress test today HALIE on CKD: Creatinine continued to worsen. 5 today. Most likely in setting of uncontrolled chronic hypertension, chronic use of NSAIDs as an outpatient. Seems to be gradually worsening over last 6 months. Down to 1.4 in May 2024 and 1.2 in January 2024. Abdomen pelvis unremarkable Will consult nephrology. Medical reconciliation done for nephrotoxic drugs. Uncontrolled hypertension: Blood pressure is elevated. Goal blood pressure less than 140/90 mmHg. Continue with amlodipine, hydralazine 50 mg 3 times daily, Coreg 6.25 mg twice daily. Add clonidine patch 0.1. Uptitrate as for goal blood pressure. IV hydralazine 10 mg every 4 hours as needed for systolic blood pressure more than 160 mmHg. Callus of heel: Patient is diabetic, callus is not show any signs of infection Patient should be referred to podiatry at discharge DVT prophylaxis heparin drip 48 hours ACS protocol completed, DVT prophylactic regimen added Renal nondialysis diabetic diet Protonix for PUD prophylaxis Transfer out of ICU today PDMP PDMP Reviewed: Not Reviewed Attestations Medical Necessity Statement*: Continue medical management, Diagnoses Acute hypoxemic respiratory failure J96.01 Community acquired pneumonia J18.9 Laterality: unspecified laterality Non-STEMI (non-ST elevated myocardial infarction) I21.4 Essential hypertension I10 Type 2 diabetes mellitus without complication, with long-term current use of insulin E11.9; Z79.4 Diabetes mellitus exterminator helper termite insulin use: with exterminator helper termite use Diabetes mellitus complication status: without complication CKD (chronic kidney disease) stage V requiring chronic dialysis N18.6; Z99.2 Bipolar II disorder F31.81 Chronic post-traumatic stress disorder F43.12 Cannabis use disorder, moderate, dependence F12.20 Blurred vision H53.8 Anemia D64.9 Hammertoe of right foot M20.41 Nicotine dependence, cigarettes, uncomplicated F17.210 Influenza J11.1
--- NOTE | 2024-12-10 09:44 | PM.PN ---
Subjective Subjective: weak, sob, us issues. no nausea, vomiting, itching, cramps Medications: Reviewed: Yes Medication Review Details: Current Medications Acetaminophen (Acetaminophen 500 Mg Tablet) 500 mg PO Q4H PRN PRN Reason: fever Last Admin: 12/09/24 01:18 Dose: 500 mg Albuterol/Ipratropium (Ipratropium-Albuterol 3 Ml Neb) 3 ml INHALATION Q6H PRN PRN Reason: SHORTNESS OF BREATH Alprazolam (Alprazolam 0.5 Mg Tablet) 0.5 mg PO TID PRN PRN Reason: ANXIETY Last Admin: 12/09/24 12:09 Dose: 0.5 mg Aminophylline (Aminophylline 25 Mg/Ml Sdv 20 Ml) 25 mg IVP Q2M PRN PRN Reason: see dose instructions Stop: 12/11/24 06:19 Amlodipine Besylate (Amlodipine 10 Mg Tablet) 10 mg PO DAILY [facility] Last Admin: 12/10/24 08:59 Dose: 10 mg Aspirin (Aspirin 81 Mg Ec Tablet) 81 mg PO DAILY [facility] Last Admin: 12/10/24 08:59 Dose: 81 mg Benzonatate (Benzonatate 100 Mg Capsule) 100 mg PO TID [facility] Last Admin: 12/10/24 08:59 Dose: 100 mg Budesonide (Budesonide 0.5 Mg/2 Ml Neb) 0.5 mg INHALATION BID.RESPIRATORY [facility] Last Admin: 12/09/24 20:38 Dose: 0.5 mg Bupropion HCl (Bupropion Xl (24 Hr) 150 Mg Tablet) 150 mg PO DAILY [facility] Last Admin: 12/10/24 08:59 Dose: 150 mg Carvedilol (Carvedilol 6.25 Mg Tablet) 6.25 mg PO BID [facility] Last Admin: 12/10/24 08:59 Dose: 6.25 mg Clonidine HCl (Clonidine 0.1 Mg/24 Hr Patch) 1 patch TRANSDERMA Q7D [facility] Last Admin: 12/09/24 11:53 Dose: 1 patch Clopidogrel Bisulfate (Clopidogrel 75 Mg Tablet) 75 mg PO DAILY [facility] Last Admin: 12/10/24 08:59 Dose: 75 mg Divalproex Sodium (Divalproex Dr 500 Mg Tablet) 500 mg PO Q12H [facility] Last Admin: 12/10/24 09:00 Dose: 500 mg Ezetimibe (Ezetimibe 10 Mg Tablet) 10 mg PO DAILY [facility] Last Admin: 12/10/24 08:59 Dose: 10 mg Furosemide (Furosemide 10 Mg/Ml Sdv 2ml) 20 mg IVP Q24H [facility] Glucagon (Glucagon 1 Mg/Ml Kit 1 Ml) 1 mg IM ONCE PRN; Protocol PRN Reason: Adult Acute Hypoglycemia Nursing Prot. Guaifenesin (Guaifenesin 100 Mg/5 Ml Udc 10 Ml) 200 mg PO Q4H PRN PRN Reason: COUGH AND CONGESTION Last Admin: 12/09/24 08:31 Dose: 200 mg Heparin Sodium (Porcine) (Heparin 5,000 Unit/Ml Inj 1 Ml) 5,000 unit SUBCUT Q12H [facility] Hydralazine HCl (Hydralazine 10 Mg Tablet) 50 mg PO TID [facility] Last Admin: 12/10/24 08:59 Dose: 50 mg Hydralazine HCl (Hydralazine 20 Mg/Ml Inj 1 Ml) 10 mg IVP Q4H PRN PRN Reason: SBP More than 160 mmhg Dextrose (D5w) 500 mls @ 0 mls/hr IV ONCE PRN; Protocol PRN Reason: Adult Acute Hypoglycemia Prot Dextrose (D10w) 125 mls @ 750 mls/hr IV PRN PRN; Protocol PRN Reason: Adult Acute Hypoglycemia Nursing Protocol Dextrose (D10w) 250 mls @ 1,000 mls/hr IV PRN PRN; Protocol PRN Reason: Adult Acute Hypoglycemia Nursing Protocol Insulin Human Lispro (Insulin Lispro 100 Unit/1 Ml) 0 unit SUBCUT WM&BEDTIME [facility]; Protocol Last Admin: 12/10/24 08:58 Dose: 8 unit Ipratropium [place] (Ipratropium 0.5 Mg/2.5 Ml Neb) 0.5 mg INHALATION Q4H.RESPIRATORY [facility] Last Admin: 12/10/24 05:02 Dose: 0.5 mg Levalbuterol HCl (Levalbuterol 0.63 Mg/3 Ml Neb) 0.63 mg INHALATION Q4H.RESPIRATORY [facility] Last Admin: 12/10/24 05:02 Dose: 0.63 mg Meropenem (Meropenem 1,000 Mg Sdv) 1,000 mg IVP Q24H [facility]; Protocol Last Admin: 12/09/24 16:58 Dose: 1,000 mg Methylprednisolone Sodium Succinate (Methylprednisolone Sod Succ 40 Mg/Ml Inj) 40 mg IVP Q12H [facility] Last Admin: 12/10/24 09:30 Dose: Not Given Nicotine (Nicotine 14 Mg Patch) 1 patch TRANSDERMA DAILY [facility] Last Admin: 12/10/24 09:00 Dose: 1 patch Nitroglycerin (Nitroglycerin 0.4 Mg Sublingual Tablet) 0.4 mg SUBLINGUAL Q5M PRN PRN Reason: CHEST PAIN Stop: 12/11/24 06:19 Ondansetron HCl (Ondansetron 2 Mg/Ml Sdv 2 Ml) 4 mg IVP Q6H PRN PRN Reason: NAUSEA AND VOMITING Last Admin: 12/09/24 09:59 Dose: 4 mg Ondansetron HCl (Ondansetron 2 Mg/Ml Sdv 2 Ml) 4 mg IVP Q2M PRN PRN Reason: NAUSEA Oseltamivir Phosphate (Oseltamivir Phosphate 30 Mg Capsule) 30 mg PO DAILY [facility] Last Admin: 12/10/24 08:59 Dose: 30 mg Pantoprazole Sodium (Pantoprazole Dr 40 Mg Tablet) 40 mg PO DAILY [facility] Last Admin: 12/10/24 08:59 Dose: 40 mg Sodium Chloride (Sodium Chloride 0.9% 100 Ml Bag) 50 ml IV PRN PRN PRN Reason: Blood transfusion prime and flush Stop: 12/11/24 09:18 Vitals/I&O/Wt Last Vital Signs Temp 99.0 F 12/10/24 05:30 Pulse 103 H 12/10/24 09:00 Resp 22 H 12/10/24 09:00 BP 162/86 12/10/24 09:00 Pulse Ox 90 12/10/24 09:00 O2 Del Method High Flow Nasal Cannula 12/10/24 05:03 O2 Flow Rate 9 12/10/24 05:03 FiO2 50 12/10/24 01:14 12/09/24 12/10/24 12/10/24 22:59 06:59 14:59 Intake Total 554.15 / 804.15 1480 / 2284.15 480 / 480 Output Total 300 / 1300 500 / 1800 Balance 254.15 / -495.85 980 / 484.15 480 / 480 Weight last 48 hrs Weight 73.845 kg Weight 73.845 kg Physical Exam Narrative: obese in bed, NC02 VS noted heent- nc/at, eomi neck supple lungs - b/l wheezing heart reg+ s1, s2 abdomen soft, + bs ext 1+ edema neuro- + stocking/ glove neuropathy seen and examined w/ A/V equipment and the aid of a RN Data 12/10/24 02:52 12/10/24 02:52 Micro: Microbiology 12/08/24 16:50 Gram Stain - Final Sputum - Expectorated Sputum Sputum Culture - Preliminary A&P Assessment and plan (1) HALIE (acute kidney injury): 59 yr old man DM, obesity, HTN, grade II/IV diastolic dysfunction. 1. ground glass infiltrates -influenza vs renal -pulm syndrome 2. Slow rise cr- January 2024- cr 1.1- 1.01 June 2024 cr 1.03 sep 2024- cr 2- 4 mg/dl, sep- dec 2024- cr 4-4.7. now w/ HALIE- cr up to 5.9-await ANCA, cristina, anti-gbm, c3, c4. he has increasing UACR - 4783, UPCR 6.7 -given anemia- check spep, sife, free light chains he had an ANCA of 1:20 + in past full anemia eval- however, cr rise has been in steps -we stopped magdalena-i in Sep 2024 -if pt accepts, would transfer for a renal biopsy. consider steroids 3. high anion gap metabolic acidosis, normal ph 7.43 4. bp was low- normal- now high- no magdalena-i 5. influenzae a as per medicine seen and examined w/ A/V equipment with aid of a RN pt consents to HD and to telehealth time spent > 1 hr Plan see above PDMP PDMP Reviewed: Not Reviewed Attestations Medical Necessity Statement*: halie, influenza a Coding Level of Care Code Acute Code for [facility] Diagnoses HALIE (acute kidney injury) N17.9
[2024-12-10] MEDS: budesonide 0.5 mg/2 mL Neb INHALATION ×2 (10:30→20:19)
[2024-12-10] MEDS: EPOETIN ALFA-EPBX 10,000 UNIT/ML SDV (ESRD) 10000 UNIT SUBCUT (11:15)
[2024-12-10 11:56] LABS: Reticulocyte % 1.4 % (0.5-2.0)
--- NOTE | 2024-12-10 12:10 | NMCV_ITS ---
NM ramya perf SPECT r/s* [id number] Joseph Baker Age: 59 Gender: M : 1965 Exam Date: 12/10/2024 12:10 Ordering Phys: Terence Novoa MD Technologist: STARR Machado Exam Location: [facility] Indications: cp STRESS TEST Please see separate stress test report in [facility] for full findings IMAGE PROTOCOL Rest/Stress 1 Lexiscan Day Radiopharmaceutical Dose (mCi) Administration Site Administered by Rest: Tc-99m 10.8 IV Vanna Lopez, LEAD INSPECTOR Stress:Tc-99m 32.5 IV Vanna Lopez, LEAD INSPECTOR Rest: 12/10/2024 45 Discovery 630 Stress: 12/10/2024 30 Discovery 630 0.4mg Lexiscan. Images obtained in supine and prone position. SPECT RESULTS Technical Quality: Good Raw Data Analysis: Image Corrections: Summed Stress Score: 2 Summed Rest Score: 3 Summed Difference Score: 2 PERFUSION FINDINGS Small area of moderately decreased tracer uptake involving the mid inferior segment, with the supine imaging. Reversibility was noted in this area at rest. However compared with the prone imaging, no significant reversible defects. FUNCTIONAL RESULTS (calculated via Gated SPECT) Stress Image LV EF (%): 62 Stress EDV (mL):107 TID: 1.03 Stress ESV (mL):41 FUNCTIONAL FINDINGS: Segmental wall motion analysis revealing no gross wall motion abnormalities IMPRESSIONS 1. Myocardial perfusion imaging revealing a small area of inconsistent reversible defect reversible defect in the mid inferior region, suggestive of ischemia in the distribution of the right coronary artery. However because of the inconsistency, the relative is questionable. Clinical correlation recommended 2. Normal LV ejection fraction of 62%. 3. LV wall motion analysis revealing no gross wall motion abnormalities. 4. Normal LV volume No similar previous studies are available for comparison Dr Spike Armstrong MD [facility] (Electronically Signed) Final Date: 10 December 2024 09:44 S
[2024-12-10 12:16] LABS: Lactate (Lactic Acid level) 1.4 mmol/L (0.5-2.2)
[2024-12-10 12:20] LABS: Complement C3 117 mg/dL (90-180); Lactate Dehydrogenase 323 U/L (135-225)
[2024-12-10 12:20] LABS: Glucose Point of Care 252 mg/dL (70-110)
[2024-12-10 12:25] LABS: Hepatitis C Virus Antibody Non-Reactive (Nonreactive)
[2024-12-10 12:37] LABS: Ferritin 324 ng/mL (30-400); Iron 26 ug/dL (59-158); Percent Saturation 13.4 % (20-50); Total Iron Binding Capacity 193 mcg/dl; Unsaturated Iron Binding 167 ug/dL (112-347)
[2024-12-10 12:44] LABS: Hepatitis B Core AB, Total Non-Reactive (Nonreactive); Hepatitis B Surface AB < 3.5 (11.5-1000); Hepatitis B Surface Antigen Non-Reactive (Nonreactive)
[2024-12-10] MEDS: hyDRALAzine 50 mg Tablet PO ×2 (14:15→21:05)
[2024-12-10 15:00] LABS: Anti-Double Strand DNA AB <1 IU/mL; Jo-1 Antibody <1.0 NEG AI (<1.0 NEG); SM/RNP Antibodies <1.0 NEG AI (<1.0 NEG); SS-B/LA IGG <1.0 NEG AI (<1.0 NEG); Scleroderma Ab(Scl-70) Ab <1.0 NEG AI (<1.0 NEG); Ss-A/Ro Igg <1.0 NEG AI (<1.0 NEG)
[2024-12-10] MEDS: meropenem 1,000 mg SDV 1000 MG IVP (15:33)
--- NOTE | 2024-12-10 16:11 | PC.SOCIAL ---
IMM Update pg 2 of IMM Updated and reviewed w/ patient. Copy provided and copy dated, initialed and placed in chart.
[2024-12-10 17:23] LABS: Glucose Point of Care 297 mg/dL (70-110)
[2024-12-10 20:36] LABS: Glucose Point of Care 336 mg/dL (70-110)
[2024-12-10] MEDS: heparin 5,000 unit/mL INJ 1 mL 5000 UNIT SUBCUT (21:05)
[2024-12-11] VITALS (32 sets, daily range): BP systolic 96–174; BP diastolic 55–92; PULSE 71–95; RESP 14–25; TEMP 36.2–37.4; O2SAT 90–97
[2024-12-11] MEDS: levalbuterol 0.63 mg/3 mL Neb INHALATION ×5 (00:24→15:10)
[2024-12-11] MEDS: ipratropium 0.5 mg/2.5 mL Neb INHALATION ×4 (00:24→15:10)
[2024-12-11 01:49] LABS: PROTEIN, TOTAL 6.4 g/dL (6.1-8.1)
[2024-12-11 05:32] LABS: Basophils % 0.1 %; Hematocrit 29.8 % (37-53); Lymphocytes # 0.3 10^3/uL (0.8-4.8); Lymphocytes % 3.2 %; Mean Corpuscular HGB Conc 33.6 g/dL (30-55); Mean Corpuscular Hemoglobin 29.9 pg (27-33); Monocytes # 0.4 10^3/uL (0.2-0.9); Monocytes % 3.6 %; Neutrophils # 9.24 10^3/uL (1.8-7.7); Neutrophils % 92.1 %; Nucleated Red Blood Cells % 0 %; Platelet Count 228 10^3/cmm (157-399); Red Blood Count 3.35 10^6/uL (3.85-5.65); White Blood Count 10.03 10^3/uL (3.29-11.43)
[2024-12-11 05:55] LABS: Alanine Aminotransferase 18 U/L (0-41); Alkaline Phosphatase 67 U/L (40-130); Anion Gap 26.7 (5-19); Aspartate Amino Transferase 26 U/L (0-40); Calcium 7.5 mg/dL (8.5-10.5); Carbon Dioxide 18 mmol/L (22-29); Chloride 89 mmol/L (98-107); Creatinine Clr Calc Pharmacy 12.3593; Globulin 3.1 g/dL (1.3-4.6); Glucose 270 mg/dL (65-115); Magnesium 1.9 mg/dL (1.7-2.3); Osmolality Calculated 310 mOsm/kg (285-295); Phosphorus 7.4 mg/dL (2.5-4.5); Potassium 3.7 mmol/L (3.5-5.1); Sodium 130 mmol/L (136-145); Total Bilirubin 0.3 mg/dL (0.15-1.2); Total Protein 6.1 g/dL (6.6-8.7)
[2024-12-11 06:13] LABS: Blood Urea Nitrogen 99 mg/dL (6-20)
[2024-12-11 07:06] LABS: PROTEIN, TOTAL 5.7 g/dL (6.1-8.1)
[2024-12-11 07:46] LABS: Estmated Average Glucose 192; Hemoglobin A1C 8.3 % (4.0-6.0)
[2024-12-11 08:04] LABS: Glucose Point of Care 333 mg/dL (70-110)
[2024-12-11] MEDS: budesonide 0.5 mg/2 mL Neb INHALATION (08:32)
[2024-12-11] MEDS: clopidogrel 75 mg Tablet PO (09:11)
[2024-12-11] MEDS: amlodipine 10 mg Tablet PO (09:11)
[2024-12-11] MEDS: carvedilol 6.25 mg Tablet PO ×2 (09:11→17:00)
[2024-12-11] MEDS: buPROPion XL (24 HR) 150 mg Tablet PO (09:12)
[2024-12-11] MEDS: ezetimibe 10 mg Tablet PO (09:12)
[2024-12-11] MEDS: oseltamivir phosphate 30 mg Capsule PO (09:12)
[2024-12-11] MEDS: hyDRALAzine 50 mg Tablet PO ×3 (09:12→20:07)
[2024-12-11] MEDS: aspirin 81 mg EC Tablet PO (09:12)
[2024-12-11] MEDS: benzonatate 100 mg Capsule PO ×3 (09:12→20:07)
[2024-12-11] MEDS: pantoprazole DR 40 mg Tablet PO (09:12)
[2024-12-11] MEDS: insulin lispro 100 unit/1 mL SUBCUT ×4 (09:13→21:00)
[2024-12-11] MEDS: nicotine 14 mg Patch 1 PATCH TRANSDERMA (09:14)
[2024-12-11] MEDS: heparin 5,000 unit/mL INJ 1 mL 5000 UNIT SUBCUT ×2 (09:14→20:07)
--- NOTE | 2024-12-11 09:28 | P.PN_ITS ---
Subjective 2 Subjective: feels better. states he has to have a BM. is urinating. Is willing to get a renal bx. he is nervous he will need dialysis. denies itching, nausea Medications: Reviewed: Yes Medication Review Details: Current Medications Acetaminophen (Acetaminophen 500 Mg Tablet) 500 mg PO Q4H PRN PRN Reason: fever Last Admin: 12/09/24 01:18 Dose: 500 mg Albuterol/Ipratropium (Ipratropium-Albuterol 3 Ml Neb) 3 ml INHALATION Q6H PRN PRN Reason: SHORTNESS OF BREATH Alprazolam (Alprazolam 0.5 Mg Tablet) 0.5 mg PO TID PRN PRN Reason: ANXIETY Last Admin: 12/09/24 12:09 Dose: 0.5 mg Amlodipine Besylate (Amlodipine 10 Mg Tablet) 10 mg PO DAILY [facility] Last Admin: 12/11/24 09:11 Dose: 10 mg Aspirin (Aspirin 81 Mg Ec Tablet) 81 mg PO DAILY [facility] Last Admin: 12/11/24 09:12 Dose: 81 mg Benzonatate (Benzonatate 100 Mg Capsule) 100 mg PO TID [facility] Last Admin: 12/11/24 09:12 Dose: 100 mg Budesonide (Budesonide 0.5 Mg/2 Ml Neb) 0.5 mg INHALATION BID.RESPIRATORY [facility] Last Admin: 12/11/24 08:32 Dose: 0.5 mg Bupropion HCl (Bupropion Xl (24 Hr) 150 Mg Tablet) 150 mg PO DAILY [facility] Last Admin: 12/11/24 09:12 Dose: 150 mg Carvedilol (Carvedilol 6.25 Mg Tablet) 6.25 mg PO BID [facility] Last Admin: 12/11/24 09:11 Dose: 6.25 mg Clonidine HCl (Clonidine 0.1 Mg/24 Hr Patch) 1 patch TRANSDERMA Q7D [facility] Last Admin: 12/09/24 11:53 Dose: 1 patch Clopidogrel Bisulfate (Clopidogrel 75 Mg Tablet) 75 mg PO DAILY [facility] Last Admin: 12/11/24 09:11 Dose: 75 mg Divalproex Sodium (Divalproex Dr 500 Mg Tablet) 500 mg PO Q12H [facility] Last Admin: 12/10/24 21:05 Dose: 500 mg Ezetimibe (Ezetimibe 10 Mg Tablet) 10 mg PO DAILY [facility] Last Admin: 12/11/24 09:12 Dose: 10 mg Glucagon (Glucagon 1 Mg/Ml Kit 1 Ml) 1 mg IM ONCE PRN; Protocol PRN Reason: Adult Acute Hypoglycemia Nursing Prot. Guaifenesin (Guaifenesin 100 Mg/5 Ml Udc 10 Ml) 200 mg PO Q4H PRN PRN Reason: COUGH AND CONGESTION Last Admin: 12/09/24 08:31 Dose: 200 mg Heparin Sodium (Porcine) (Heparin 5,000 Unit/Ml Inj 1 Ml) 5,000 unit SUBCUT Q12H [facility] Last Admin: 12/11/24 09:14 Dose: 5,000 unit Hydralazine HCl (Hydralazine 20 Mg/Ml Inj 1 Ml) 10 mg IVP Q4H PRN PRN Reason: SBP More than 160 mmhg Hydralazine HCl (Hydralazine 50 Mg Tablet) 50 mg PO TID [facility] Last Admin: 12/11/24 09:12 Dose: 50 mg Dextrose (D5w) 500 mls @ 0 mls/hr IV ONCE PRN; Protocol PRN Reason: Adult Acute Hypoglycemia Prot Dextrose (D10w) 125 mls @ 750 mls/hr IV PRN PRN; Protocol PRN Reason: Adult Acute Hypoglycemia Nursing Protocol Dextrose (D10w) 250 mls @ 1,000 mls/hr IV PRN PRN; Protocol PRN Reason: Adult Acute Hypoglycemia Nursing Protocol Insulin Human Lispro (Insulin Lispro 100 Unit/1 Ml) 0 unit SUBCUT WM&BEDTIME [facility]; Protocol Last Admin: 12/11/24 09:13 Dose: 12 unit Ipratropium [place] (Ipratropium 0.5 Mg/2.5 Ml Neb) 0.5 mg INHALATION Q4H.RESPIRATORY [facility] Last Admin: 12/11/24 08:32 Dose: 0.5 mg Levalbuterol HCl (Levalbuterol 0.63 Mg/3 Ml Neb) 0.63 mg INHALATION Q4H.RESPIRATORY [facility] Last Admin: 12/11/24 08:32 Dose: 0.63 mg Meropenem (Meropenem 1,000 Mg Sdv) 1,000 mg IVP Q24H [facility]; Protocol Last Admin: 12/10/24 15:33 Dose: 1,000 mg Methylprednisolone Sodium Succinate (Methylprednisolone Sod Succ 40 Mg/Ml Inj) 40 mg IVP Q12H [facility] Last Admin: 12/10/24 21:05 Dose: 40 mg Nicotine (Nicotine 14 Mg Patch) 1 patch TRANSDERMA DAILY [facility] Last Admin: 12/11/24 09:14 Dose: 1 patch Ondansetron HCl (Ondansetron 2 Mg/Ml Sdv 2 Ml) 4 mg IVP Q6H PRN PRN Reason: NAUSEA AND VOMITING Last Admin: 12/09/24 09:59 Dose: 4 mg Ondansetron HCl (Ondansetron 2 Mg/Ml Sdv 2 Ml) 4 mg IVP Q2M PRN PRN Reason: NAUSEA Oseltamivir Phosphate (Oseltamivir Phosphate 30 Mg Capsule) 30 mg PO DAILY [facility] Last Admin: 12/11/24 09:12 Dose: 30 mg Pantoprazole Sodium (Pantoprazole Dr 40 Mg Tablet) 40 mg PO DAILY [facility] Last Admin: 12/11/24 09:12 Dose: 40 mg Vitals/I&O/Wt Last Vital Signs Temp 99.3 F 12/11/24 04:55 Pulse 94 12/11/24 08:32 Resp 17 12/11/24 08:32 BP 154/92 12/11/24 06:00 Pulse Ox 94 12/11/24 08:32 O2 Del Method Nasal Cannula 12/11/24 08:32 O2 Flow Rate 2 12/11/24 08:32 FiO2 50 12/10/24 01:14 12/10/24 12/11/24 12/11/24 22:59 06:59 14:59 Intake Total 250 / 970 Output Total 500 / 500 700 / 1200 Balance -250 / 470 -700 / -230 Weight last 48 hrs Weight 75.841 kg Weight 73.845 kg Physical Exam 2 Narrative: obese in bed, NC02 VS noted heent- nc/at, eomi neck supple lungs - lower right lobe wheezing heart reg+ s1, s2 abdomen soft, + bs ext 1+ b/l leg edema neuro- + stocking/ glove neuropathy. no asterexis seen and examined w/ A/V equipment and the aid of a RN Data 12/11/24 04:55 12/11/24 04:55 Micro: Microbiology 12/08/24 16:50 Gram Stain - Final Sputum - Expectorated Sputum Sputum Culture - Final A&P Assessment and plan (1) HALIE (acute kidney injury): 59 yr old man DM, obesity, HTN, grade II/IV diastolic dysfunction. 1. ground glass infiltrates -influenza vs renal -pulm syndrome 2. Slow rise cr- January 2024- cr 1.1- 1.01 June 2024 cr 1.03 sep 2024- cr 2- 4 mg/dl, sep- dec 2024- cr 4-4.7. now w/ HALIE- cr up to 6.4 -h/o ANCA + 1:20 p ANCA in sep 2024 -await ANCA, SIFE, normal complements, anti-dsDNA negative. await cristina, anti-gbm, he has increasing UACR - 4783, UPCR 6.7 -given anemia- check spep, sife, free light chains he had an ANCA of 1:20 + in past full anemia eval- however, cr rise has been in steps -we stopped magdalena-i in Sep 2024 -given rapid rise in cr, low +ANCA, though no hematuria. would recommend renal biopsy to see if he has a reversible disease -will start solumedrol 500 mg iv today, if he handles the 500 mg iv, consider raise to 1 gm iv daily -recommedn transfer for a renal biopsy. 3. high anion gap metabolic acidosis, normal ph 7.43 repeat abg 4. bp elevted- monitor, no magdalena-i 5. influenzae a as per medicine 6. hyponatremia from HALIE start sodium bicarb and phos binders =may need dialysis soon seen and examined w/ A/V equipment with aid of a RN pt consents to renal biospy and to telehealth time spent 40 minutes Plan see above PDMP PDMP Reviewed: Not Reviewed Attestations 2 Medical Necessity Statement*: halie Coding Level of Care Code Acute Code for [facility] Diagnoses HALIE (acute kidney injury) N17.9
--- NOTE | 2024-12-11 09:35 | PC.NURSE ---
Nurse delivered breakfast the to the patient and patient suddenly became very angry. Started yelling at nurse regarding the breakfast. When nurse asked what the problem is, patient refused to tell the nurse, would only yell i can't believe you don't know Despite the nurse asking the patient multiple times what was wrong the patient still refused to tell the nurse and then started saying that he is going to leave the hospital. After nurse told the patient that he is free to leave if he chooses as we cannot keep him against his will, he told the nurse that he only wanted eggs and fruit with his breakfast. Patient is requesting a hard boiled egg. Patient currently has a vegan diet ordered per his request. Nurse asked if he is vegan and the patient states yes, but i want eggs, chicken, or fish with every meal. Nurse removed Vegan as a dietary restriction and commented requests eggs, fish or chicken with each meal. Nurse called dietary and requested hard boiled eggs and fruit. Upon returning to the room to continue rounding the patient had eaten most of the original food tray that he was dissatisfied with and continued to be verbally abusive regarding the lack of eggs.
[2024-12-11 09:47] LABS: ABG PH Result 7.34 (7.35-7.45); Alveolar-Arterial Oxygen Gradi 10.4 mmHg (5-10); Arterial Blood Gas Hematocrit 34.8 % (42-52); Base Excess ABG -7.3 mmol/L (-2.0-2.0); Blood Gas Allen Test Pos; Blood Gas Operator Identificat GD; Blood Gas Sample Site Radial, left; Blood Gas Sample Type Arterial; Carboxyhemoglobin 0.4 %THgb (0.4-20.1); HCO3 ABG 17.6 mmol/L (22-26); HGB O2 Sat 92.3 % (95-100); Methemoglobin 1.4 % (0.4-1.5); Oxygen Device NC; PO2 ABG 77.7 mmHg (80.0-100.0); PO2 FiO2 Ratio Arterial Blood 277; Potassium Level - ABG 3.5 mmol/L (3.5-5.0); Total Hemoglobin 11.3 g/dL (14-18)
--- NOTE | 2024-12-11 10:27 | PC.NURSE ---
Patient is concerned about his dog which is at a local halfway. Nurse called [place] animal control at [phone] and spoke to an officer there. They confirmed that they have his dog and it is doing well.
[2024-12-11] MEDS: divalproex DR 500 mg Tablet PO ×2 (10:34→21:01)
--- NOTE | 2024-12-11 12:09 | P.PN_ITS ---
Subjective 2 Subjective: Patient sitting in his chair Urine output 1200 mL Creatinine worsening Started steroids today Spoke with nephro Patient will need renal biopsy Will try to arrange transfer to [place] or [facility] ACS protocol completed Stress test unremarkable echo did not show any wall motion abnormality no coronary angiogram indication at this point as per Dr. Armstrong Vitals/I&O/Wt Last Vital Signs Temp 98.2 F 12/11/24 09:00 Pulse 84 12/11/24 11:16 Resp 19 H 12/11/24 11:05 BP 174/91 12/11/24 10:00 Pulse Ox 96 12/11/24 11:05 O2 Del Method Nasal Cannula 12/11/24 11:05 O2 Flow Rate 2 12/11/24 11:05 FiO2 50 12/10/24 01:14 12/10/24 12/11/24 12/11/24 22:59 06:59 14:59 Intake Total 250 / 970 Output Total 500 / 500 700 / 1200 Balance -250 / 470 -700 / -230 Weight last 48 hrs Weight 75.841 kg Weight 73.845 kg Physical Exam 2 Narrative: Awake and alert Mild sign of fluid overload Nonfocal neuroexam Currently on 2 L nasal cannula Hypertensive Abdomen soft GCS 15 Nonfocal neuroexam S1, S2 Pleasant and cooperative Data 12/11/24 04:55 12/11/24 04:55 Micro: Microbiology 12/08/24 16:50 Gram Stain - Final Sputum - Expectorated Sputum Sputum Culture - Final A&P Assessment and plan (1) CKD (chronic kidney disease) stage V requiring chronic dialysis: (2) HALIE (acute kidney injury): (3) Acute hypoxemic respiratory failure: (4) Community acquired pneumonia: Qualifiers: Laterality: unspecified laterality Qualified Code(s): J18.9 - Pneumonia, unspecified organism (5) Callus of heel: (6) Nicotine dependence, cigarettes, uncomplicated: (7) Impaired visual perception: (8) Hyperglycemia: (9) Type 2 diabetes mellitus: Qualifiers: 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 insulin use: with chcf use Diabetes mellitus complication status: without complication Qualified Code(s): E11.9 - Type 2 diabetes mellitus without complications; Z79.4 - oil heaterman (current) use of insulin (10) Non-STEMI (non-ST elevated myocardial infarction): (11) Essential hypertension: (12) Bipolar II disorder: Plan Acute on chronic kidney disease Positive ANCA antibodies, no hematuria, proteinuria positive Starting steroids today 12/11 high-dose steroids Monitor blood sugar, use insulin sliding scale Nephro recommended renal biopsy Patient need to be transferred to tertiary center Hypertension: Optimize antihypertensive regimen Influenza A related hypoxia: Currently on 2 L nasal cannula, patient endorsing feeling better oxygen weaned down from 9 L to 2 L today stress test did not show any acute ischemic changes no need of coronary angiogram as per cardiology Non-STEMI: Finished ACS protocol Callus of heel without any signs of infection Can be transferred out of ICU to [facility] Renal nondialysis diet Full code Nephro was concerned about renal pulmonary syndrome considering acute hypoxia patient requiring oxygen Monitor for now DVT prophylaxis heparin PDMP PDMP Reviewed: Not Reviewed Attestations 2 Medical Necessity Statement*: Continue medical management Diagnoses CKD (chronic kidney disease) stage V requiring chronic dialysis N18.6; Z99.2 HALIE (acute kidney injury) N17.9 Acute hypoxemic respiratory failure J96.01 Community acquired pneumonia J18.9 Laterality: unspecified laterality Callus of heel L84 Nicotine dependence, cigarettes, uncomplicated F17.210 Impaired visual perception H53.9 Hyperglycemia R73.9 Type 2 diabetes mellitus without complication, with long-term current use of insulin E11.9; Z79.4 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
[2024-12-11 13:25] LABS: KAPPA LIGHT CHAIN, FREE, SERUM 87.8 mg/L (3.3-19.4); KAPPA/LAMBDA LIGHT CHAINS FREE 2.69 (0.26-1.65); LAMBDA LIGHT CHAIN, FREE, SERU 32.6 mg/L (5.7-26.3)
[2024-12-11] MEDS: sevelamer 800 mg Tablet 1600 MG PO ×2 (15:11→20:07)
[2024-12-11] MEDS: sodium bicarbonate 650 mg Tablet PO ×2 (15:11→20:08)
[2024-12-11] MEDS: isosorbide mononitrate 20 mg Tablet PO (17:00)
[2024-12-11 17:05] LABS: Glucose Point of Care 328 mg/dL (70-110)
[2024-12-11 19:24] LABS: ALBUMIN 2.9 g/dL (3.8-4.8); ALPHA 1 GLOBULIN 0.4 g/dL (0.2-0.3); ALPHA 2 GLOBULIN 1.1 g/dL (0.5-0.9); BETA 1 GLOBULIN 0.3 g/dL (0.4-0.6); BETA 2 GLOBULIN 0.4 g/dL (0.2-0.5); GAMMA GLOBULIN 0.6 g/dL (0.8-1.7)
[2024-12-11 20:43] LABS: Glucose Point of Care 269 mg/dL (70-110)
[2024-12-12] VITALS (12 sets, daily range): BP systolic 106–178; BP diastolic 54–91; PULSE 75–100; RESP 16–22; TEMP 36.3–36.6; O2SAT 93–96
[2024-12-12] MEDS: calcium carbonate 500 mg Chew Tablet 1000 MG PO (00:24)
[2024-12-12] MEDS: ipratropium 0.5 mg/2.5 mL Neb INHALATION ×5 (00:58→20:33)
[2024-12-12] MEDS: levalbuterol 0.63 mg/3 mL Neb INHALATION ×5 (00:58→20:33)
[2024-12-12 05:45] LABS: Basophils % 0.1 %; Hematocrit 33.1 % (37-53); Lymphocytes # 0.4 10^3/uL (0.8-4.8); Mean Corpuscular HGB Conc 33.2 g/dL (30-55); Mean Corpuscular Hemoglobin 29.3 pg (27-33); Mean Corpuscular Volume 88.3 fl (82-101); Mean Platelet Volume 11.8 fL (7.4-10.4); Monocytes # 0.3 10^3/uL (0.2-0.9); Monocytes % 2.8 %; Neutrophils # 9.99 10^3/uL (1.8-7.7); Neutrophils % 91.9 %; Nucleated Red Blood Cells % 0.3 %; Platelet Count 275 10^3/cmm (157-399); Red Blood Count 3.75 10^6/uL (3.85-5.65); Red Cell Distribution Width 13.7 % (12.1-15.1); White Blood Count 10.86 10^3/uL (3.29-11.43)
[2024-12-12 06:05] LABS: Alanine Aminotransferase 19 U/L (0-41); Albumin Level 3.2 g/dL (3.5-5.2); Alkaline Phosphatase 74 U/L (40-130); Anion Gap 28.6 (5-19); Aspartate Amino Transferase 24 U/L (0-40); Calcium 7.5 mg/dL (8.5-10.5); Carbon Dioxide 16 mmol/L (22-29); Chloride 86 mmol/L (98-107); Creatinine Clr Calc Pharmacy 11.9753; Globulin 3.5 g/dL (1.3-4.6); Glomerular Filtration Rate 8.7 mL/min (90-130); Glucose 372 mg/dL (65-115); Phosphorus 6.5 mg/dL (2.5-4.5); Potassium 3.6 mmol/L (3.5-5.1); Sodium 127 mmol/L (136-145); Total Bilirubin 0.2 mg/dL (0.15-1.2); Total Protein 6.7 g/dL (6.6-8.7)
[2024-12-12 06:15] LABS: Osmolality Calculated 317 mOsm/kg (285-295)
[2024-12-12 06:18] LABS: Blood Urea Nitrogen 119 mg/dL (6-20)
[2024-12-12 06:30] LABS: Glucose Point of Care 398 mg/dL (70-110)
--- NOTE | 2024-12-12 08:52 | PM.PN ---
Subjective Subjective: awaiting transfer for renal biopsy. anxious, +pleuritic CP, has increasing leg edema, poor sleep, + anxious and stress. denies nausea, itching, poor memory. Medications: Reviewed: Yes Medication Review Details: Current Medications Acetaminophen (Acetaminophen 500 Mg Tablet) 500 mg PO Q4H PRN PRN Reason: fever Last Admin: 12/09/24 01:18 Dose: 500 mg Albuterol/Ipratropium (Ipratropium-Albuterol 3 Ml Neb) 3 ml INHALATION Q6H PRN PRN Reason: SHORTNESS OF BREATH Amlodipine Besylate (Amlodipine 10 Mg Tablet) 10 mg PO DAILY [facility] Last Admin: 12/11/24 09:11 Dose: 10 mg Aspirin (Aspirin 81 Mg Ec Tablet) 81 mg PO DAILY [facility] Last Admin: 12/11/24 09:12 Dose: 81 mg Benzonatate (Benzonatate 100 Mg Capsule) 100 mg PO TID [facility] Last Admin: 12/11/24 20:07 Dose: 100 mg Budesonide (Budesonide 0.5 Mg/2 Ml Neb) 0.5 mg INHALATION BID.RESPIRATORY [facility] Last Admin: 12/12/24 00:22 Dose: Not Given Bupropion HCl (Bupropion Xl (24 Hr) 150 Mg Tablet) 150 mg PO DAILY [facility] Last Admin: 12/11/24 09:12 Dose: 150 mg Calcium Carbonate (Calcium Carbonate 500 Mg Chew Tablet) 1,000 mg PO Q6H PRN PRN Reason: HEARTBURN Last Admin: 12/12/24 00:24 Dose: 1,000 mg Carvedilol (Carvedilol 6.25 Mg Tablet) 6.25 mg PO BID [facility] Last Admin: 12/11/24 17:00 Dose: 6.25 mg Clonidine HCl (Clonidine 0.1 Mg/24 Hr Patch) 1 patch TRANSDERMA Q7D [facility] Last Admin: 12/09/24 11:53 Dose: 1 patch Clopidogrel Bisulfate (Clopidogrel 75 Mg Tablet) 75 mg PO DAILY [facility] Last Admin: 12/11/24 09:11 Dose: 75 mg Divalproex Sodium (Divalproex Dr 500 Mg Tablet) 500 mg PO Q12H [facility] Last Admin: 12/11/24 21:01 Dose: 500 mg Ezetimibe (Ezetimibe 10 Mg Tablet) 10 mg PO DAILY [facility] Last Admin: 12/11/24 09:12 Dose: 10 mg Glucagon (Glucagon 1 Mg/Ml Kit 1 Ml) 1 mg IM ONCE PRN; Protocol PRN Reason: Adult Acute Hypoglycemia Nursing Prot. Guaifenesin (Guaifenesin 100 Mg/5 Ml Udc 10 Ml) 200 mg PO Q4H PRN PRN Reason: COUGH AND CONGESTION Last Admin: 12/09/24 08:31 Dose: 200 mg Heparin Sodium (Porcine) (Heparin 5,000 Unit/Ml Inj 1 Ml) 5,000 unit SUBCUT Q12H [facility] Last Admin: 12/11/24 20:07 Dose: 5,000 unit Hydralazine HCl (Hydralazine 20 Mg/Ml Inj 1 Ml) 10 mg IVP Q4H PRN PRN Reason: SBP More than 160 mmhg Hydralazine HCl (Hydralazine 50 Mg Tablet) 50 mg PO TID [facility] Last Admin: 12/11/24 20:07 Dose: 50 mg Dextrose (D5w) 500 mls @ 0 mls/hr IV ONCE PRN; Protocol PRN Reason: Adult Acute Hypoglycemia Prot Dextrose (D10w) 125 mls @ 750 mls/hr IV PRN PRN; Protocol PRN Reason: Adult Acute Hypoglycemia Nursing Protocol Dextrose (D10w) 250 mls @ 1,000 mls/hr IV PRN PRN; Protocol PRN Reason: Adult Acute Hypoglycemia Nursing Protocol Methylprednisolone Sodium Succinate 500 mg/ Sodium Chloride 258 mls @ 258 mls/hr IV DAILY [facility] Stop: 12/13/24 09:59 Last Admin: 12/11/24 10:35 Dose: 258 mls/hr Insulin Human Lispro (Insulin Lispro 100 Unit/1 Ml) 0 unit SUBCUT WM&BEDTIME [facility]; Protocol Last Admin: 12/11/24 21:00 Dose: 10 unit Ipratropium Novi (Ipratropium 0.5 Mg/2.5 Ml Neb) 0.5 mg INHALATION Q4H.RESPIRATORY [facility] Last Admin: 12/12/24 05:37 Dose: 0.5 mg Isosorbide Mononitrate (Isosorbide Mononitrate 20 Mg Tablet) 20 mg PO BID [facility] Last Admin: 12/11/24 17:00 Dose: 20 mg Levalbuterol HCl (Levalbuterol 0.63 Mg/3 Ml Neb) 0.63 mg INHALATION Q4H.RESPIRATORY [facility] Last Admin: 12/12/24 05:37 Dose: 0.63 mg Nicotine (Nicotine 14 Mg Patch) 1 patch TRANSDERMA DAILY [facility] Last Admin: 12/11/24 09:14 Dose: 1 patch Ondansetron HCl (Ondansetron 2 Mg/Ml Sdv 2 Ml) 4 mg IVP Q6H PRN PRN Reason: NAUSEA AND VOMITING Last Admin: 12/09/24 09:59 Dose: 4 mg Ondansetron HCl (Ondansetron 2 Mg/Ml Sdv 2 Ml) 4 mg IVP Q2M PRN PRN Reason: NAUSEA Oseltamivir Phosphate (Oseltamivir Phosphate 30 Mg Capsule) 30 mg PO DAILY [facility] Last Admin: 12/11/24 09:12 Dose: 30 mg Pantoprazole Sodium (Pantoprazole Dr 40 Mg Tablet) 40 mg PO DAILY [facility] Last Admin: 12/11/24 09:12 Dose: 40 mg Sevelamer Carbonate (Sevelamer 800 Mg Tablet) 1,600 mg PO TID [facility] Last Admin: 12/11/24 20:07 Dose: 1,600 mg Sodium Bicarbonate (Sodium Bicarbonate 650 Mg Tablet) 650 mg PO TID [facility] Last Admin: 12/11/24 20:08 Dose: 650 mg Vitals/I&O/Wt Last Vital Signs Temp 97.8 F 12/12/24 08:40 Pulse 100 12/12/24 08:40 Resp 16 12/12/24 08:40 BP 178/91 12/12/24 08:40 Pulse Ox 93 12/12/24 08:40 O2 Del Method Room Air 12/12/24 08:40 O2 Flow Rate 1 12/12/24 05:35 FiO2 50 12/10/24 01:14 12/11/24 12/12/24 12/12/24 22:59 06:59 14:59 Intake Total 720 / 1120 240 / 1360 Output Total 600 / 600 Balance 720 / 1120 -360 / 760 Weight last 48 hrs Weight 75.705 kg Weight 75.841 kg Physical Exam Narrative: obese in bed, NC02 VS noted- bp elevated heent- nc/at, eomi neck supple lungs - good air movement b/l heart reg+ s1, s2 abdomen soft, + bs ext 2+ b/l leg edema neuro- + stocking/ glove neuropathy. no asterexis seen and examined w/ A/V equipment and the aid of a RN Data 12/12/24 05:37 12/12/24 05:37 A&P Assessment and plan (1) HALIE (acute kidney injury): 59 yr old man DM, obesity, HTN, grade II/IV diastolic dysfunction. 1. ground glass infiltrates -influenza vs renal -pulm syndrome 2. Slow rise cr- January 2024- cr 1.1- 1.01 June 2024 cr 1.03 sep 2024- cr 2- 4 mg/dl, sep- dec 2024- cr 4-4.7. now w/ HALIE- cr up to 6.4 -h/o ANCA + 1:20 p ANCA in sep 2024 -await ANCA, SIFE Free light chain kappa: lambda ratio of 2.7 and no m-spike- unlikely myeloma or amyloid - normal complements, anti-dsDNA negative. await cristina, anti-gbm, he has increasing UACR - 4783, UPCR 6.7 he had an ANCA of 1:20 + in past full anemia eval- however, cr rise has been in steps -we stopped magdalena-i in Sep 2024 -given rapid rise in cr, low +ANCA, though no hematuria. would recommend renal biopsy to see if he has a reversible disease -we started solumedrol 500 mg iv yesterday, as he has high glucose, will not increase his dose -recommedn transfer for a renal biopsy. 3. high anion gap metabolic acidosis, normal ph 7.43 repeat abg 4. bp elevted- monitor, no magdalena-i 5. influenzae a as per medicine 6. hyponatremia from HALIE sodium bicarb and phos binders =may need dialysis soon seen and examined w/ A/V equipment with aid of a RN pt consents to renal biospy, transfer if possible, and to telehealth Plan see above PDMP PDMP Reviewed: Not Reviewed Attestations Medical Necessity Statement*: halie, hyponatremia, met acidosis Time Spent in Patient Care: 16 - 35 minutes (>than 50% of time spent in counselling and/or direct pt care on unit). Coding Level of Care Code Acute Code for [facility] Diagnoses HALIE (acute kidney injury) N17.9
[2024-12-12 09:32] LABS: Calcium 8.5 mg/dL (8.5-10.5)
[2024-12-12] MEDS: insulin lispro 100 unit/1 mL SUBCUT ×5 (09:48→22:45)
[2024-12-12] MEDS: isosorbide mononitrate 20 mg Tablet PO ×2 (09:48→17:23)
[2024-12-12] MEDS: sodium bicarbonate 650 mg Tablet PO ×3 (09:49→21:20)
[2024-12-12] MEDS: clopidogrel 75 mg Tablet PO (09:49)
[2024-12-12] MEDS: hyDRALAzine 50 mg Tablet PO ×3 (09:49→21:20)
[2024-12-12] MEDS: amlodipine 10 mg Tablet PO (09:49)
[2024-12-12] MEDS: oseltamivir phosphate 30 mg Capsule PO (09:49)
[2024-12-12] MEDS: sevelamer 800 mg Tablet 1600 MG PO ×3 (09:49→21:20)
[2024-12-12] MEDS: ezetimibe 10 mg Tablet PO (09:49)
[2024-12-12] MEDS: benzonatate 100 mg Capsule PO ×3 (09:49→21:20)
[2024-12-12] MEDS: carvedilol 6.25 mg Tablet PO ×2 (09:49→17:23)
[2024-12-12] MEDS: divalproex DR 500 mg Tablet PO ×2 (09:49→21:19)
[2024-12-12] MEDS: heparin 5,000 unit/mL INJ 1 mL 5000 UNIT SUBCUT ×2 (09:50→21:19)
[2024-12-12] MEDS: nicotine 14 mg Patch 1 PATCH TRANSDERMA (09:50)
[2024-12-12] MEDS: pantoprazole DR 40 mg Tablet PO (09:50)
[2024-12-12 11:26] LABS: Glucose Point of Care 454 mg/dL (70-110)
[2024-12-12 14:11] LABS: Glucose Point of Care 339 mg/dL (70-110)
--- NOTE | 2024-12-12 15:10 | PM.PN ---
Vitals/I&O/Wt Last Vital Signs Temp 97.8 F 12/12/24 12:51 Pulse 90 12/12/24 12:51 Resp 17 12/12/24 12:51 BP 166/85 12/12/24 12:51 Pulse Ox 94 12/12/24 12:51 O2 Del Method Room Air 12/12/24 12:51 O2 Flow Rate 1 12/12/24 05:35 FiO2 50 12/10/24 01:14 12/12/24 12/12/24 12/12/24 06:59 14:59 22:59 Intake Total 240 / 1618 1418 / 1418 Output Total 600 / 600 Balance -360 / 1018 1418 / 1418 Weight last 48 hrs Weight 75.705 kg Weight 75.841 kg Data 12/12/24 05:37 12/12/24 05:37 A&P PDMP PDMP Reviewed: Not Reviewed Coding Level of Care Code Acute Code for [facility] Fwd
--- NOTE | 2024-12-12 15:23 | PC.SOCIAL ---
IMM UPDATED IMM dated and initialed, copy given to patient and copy placed in chart
--- NOTE | 2024-12-12 16:58 | P.TS_ITS ---
Transfer Summary Providers Date of Admission: 12/07/24 20:04 Date of Discharge/Transfer: 12/12/24 Attending Provider at Admission: Mariaelena Hanson MD Attending Provider at Transfer: Mariaelena Hanson MD Primary Care Provider: Pierce Justice MD Transfer Plans: Anticipated date of transfer: 12/12/24 . Diagnoses at Discharge Discharge Diagnosis (1) HALIE (acute kidney injury): Status: Acute Reason for Visit Reason for Visit resp distress Hospital Course Hospital Course 59-year-old male who was admitted for management evaluation of shortness of breath [facility], he was diagnosed with influenza A, he was requiring 3 L of oxygen, he was treated conservatively, during hospitalization he was treated for non-STEMI as well for increase of troponin, he finished 48 hours on heparin drip, cardiac stress test was done at the end because patient remained asymptomatic and echo did not show any wall motion abnormality, history of cardiac stress test did not show any coronary ischemic changes, his creatinine kept getting worse, nephrology was consulted who recommended addition of high-dose steroids which were added 12/11 500 mg methylprednisolone, nephrology has recommended renal biopsy and closer abdi toring to see if patient would require dialysis, for now he is making urine up to 800 to 1200 mL/day. Nephrology also requested complement studies, c-ANCA, hepatitis panel, CRISTINA, results are pending. Patient was presented to [facility], patient was presented to [facility] nurse practitioner for nephrology who accepted the patient and then this was presented to hospitalist RN who accepted the patient as well, accepting physician will be Dr. Gabrielle Flynn note brief excerpt:- . Slow rise cr- January 2024- cr 1.1- 1.01 June 2024 cr 1.03 sep 2024- cr 2- 4 mg/dl, sep- dec 2024- cr 4-4.7. now w/ HALIE- cr up to 6.4 -h/o ANCA + 1:20 p ANCA in sep 2024 -await ANCA, SIFE Free light chain kappa: lambda ratio of 2.7 and no m-spike- unlikely myeloma or amyloid - normal complements, anti-dsDNA negative. await cristina, anti-gbm, he has increasing UACR - 4783, UPCR 6.7 he had an ANCA of 1:20 + in past full anemia eval- however, cr rise has been in steps -we stopped magdalena-i in Sep 2024 -given rapid rise in cr, low +ANCA, though no hematuria. would recommend renal biopsy to see if he has a reversible disease -we started solumedrol 500 mg iv yesterday, as he has high glucose, will not increase his dose -recommedn transfer for a renal biopsy. 3. high anion gap metabolic acidosis, normal ph 7.43 Physical Exam Narrative: Hemodynamically stable Euvolemic Pleasant cooperative Currently doing well on room air TS Data Studies Completed and Pending Pending at discharge Category Date Time Status CRISTINA Screen w/ Reflex Routine Lab 12/11/24 10:29 Received ANCA [Anti-Neutrophil Cytoplasmic AB] Routine Lab 12/09/24 12:28 Received ANCA [Anti-Neutrophil Cytoplasmic AB] Routine Lab 12/10/24 11:15 Received Blood Culture Stat Lab 12/07/24 20:09 Results Complete Blood Count w/Auto AM LABS Lab 12/13/24 04:00 Ordered Complete Blood Count w/Auto AM LABS Lab 12/14/24 04:00 Ordered Comprehensive Metabolic Panel AM LABS Lab 12/13/24 04:00 Ordered Comprehensive Metabolic Panel AM LABS Lab 12/13/24 04:00 Ordered Comprehensive Metabolic Panel AM LABS Lab 12/14/24 04:00 Ordered Glomerular Basement AB IGG Routine Lab 12/10/24 11:15 Received Immunofixation Serum Stat Lab 12/10/24 11:15 Received Magnesium AM LABS Lab 12/13/24 04:00 Ordered Magnesium AM LABS Lab 12/13/24 04:00 Ordered Magnesium AM LABS Lab 12/14/24 04:00 Ordered Phosphorus AM LABS Lab 12/13/24 04:00 Ordered Phosphorus AM LABS Lab 12/13/24 04:00 Ordered Phosphorus AM LABS Lab 12/14/24 04:00 Ordered SPEP [Total Protein Electrophoresis] Routine Lab 12/08/24 18:10 Results Completed Studies During Hospitalization Category Date Time Status CT abdomen pelvis wo con [id number] Routine Cat Scan 12/09/24 08:[address] chest wo con [id number] Urgent Cat Scan 12/08/24 12:10 Completed Sestamibi Stress Test Request Routine Exams 12/08/24 12:10 Draft XR chest 1V portable [id number] Routine Exams 12/09/24 15:32 Completed XR chest 1V portable [id number] Stat Exams 12/07/24 15:49 Completed NM ramya perf SPECT r/s* [id number] Routine Nuc Med 12/10/24 12:10 Completed CV. echo complete* [id number] Routine Ultrasound 12/08/24 21:42 Completed US renal BI* [id number] Routine Ultrasound 12/09/24 16:07 Completed Laboratory Last Values WBC 10.86 10^3/uL (3.29-11.43) 12/12/24 05:37 Corrected WBC Cancelled 12/09/24 03:54 RBC 3.75 10^6/uL (3.85-5.65) L 12/12/24 05:37 Hgb 11.00 g/dL (11.27-16.99) L 12/12/24 05:37 Hct 33.1 % (37-53) L 12/12/24 05:37 MCV 88.3 fl (82-101) 12/12/24 05:37 MCH 29.3 pg (27-33) 12/12/24 05:37 MCHC 33.2 g/dL (30-55) 12/12/24 05:37 RDW 13.7 % (12.1-15.1) 12/12/24 05:37 Plt Count 275 10^3/cmm (157-399) 12/12/24 05:37 MPV 11.8 fL (7.4-10.4) H 12/12/24 05:37 Gran % Cancelled 12/09/24 03:54 Neut % (Auto) 91.9 % 12/12/24 05:37 Lymph % (Auto) 4.0 % 12/12/24 05:37 [place] % (Auto) 2.8 % 12/12/24 05:37 Eos % (Auto) 0.0 % 12/12/24 05:37 Baso % (Auto) 0.1 % 12/12/24 05:37 Reticulocyte % (Auto) 1.4 % (0.5-2.0) 12/10/24 11:15 Neut # (Auto) 9.99 10^3/uL (1.8-7.7) H 12/12/24 05:37 Lymph # (Auto) 0.4 10^3/uL (0.8-4.8) L 12/12/24 05:37 [place]dwell # (Auto) 0.3 10^3/uL (0.2-0.9) 12/12/24 05:37 Eos # (Auto) 0.0 10^3/uL (0.0-0.8) 12/12/24 05:37 Baso # (Auto) 0.0 10^3/uL (0.0-0.1) 12/12/24 05:37 Absolute Gran (auto) Cancelled 12/09/24 03:54 Nucleated RBC % (auto) 0.3 % 12/12/24 05:37 Nucleated RBCs # 0.0 /100WBC 12/12/24 05:37 Haptoglobin 367.0 mg/L (30-200) H 12/10/24 11:15 APTT 97.3 SECONDS (23.9-36.7) H 12/10/24 02:52 D-Dimer 1.48 ug/mLFEU (0-0.59) H 12/07/24 16:24 Specimen Type Arterial 12/11/24 09:30 Sample Site Radial, left 12/11/24 09:30 ABG pH 7.34 (7.35-7.45) L 12/11/24 09:30 ABG pCO2 33.0 mmHg (35-45) L 12/11/24 09:30 ABG pO2 77.7 mmHg (80.0-100.0) L 12/11/24 09:30 ABG PO2/FiO2 Ratio 277 12/11/24 09:30 ABG HCO3 17.6 mmol/L (22-26) L 12/11/24 09:30 ABG O2 Saturation 94.0 12/11/24 09:30 ABG Base Excess -7.3 mmol/L (-2.0-2.0) L 12/11/24 09:30 Dl Test Pos 12/11/24 09:30 A-a O2 Gradient 10.4 mmHg (5-10) H 12/11/24 09:30 Hematocrit 34.8 % (42-52) L 12/11/24 09:30 Hgb O2 Saturation 92.3 % (95-100) L 12/11/24 09:30 Carboxyhemoglobin 0.4 %THgb (0.4-20.1) 12/11/24 09:30 Methemoglobin 1.4 % (0.4-1.5) 12/11/24 09:30 Total Hemoglobin 11.3 g/dL (14-18) L 12/11/24 09:30 Sodium 128.0 mmol/L (131-143) L 12/11/24 09:30 Potassium 3.5 mmol/L (3.5-5.0) 12/11/24 09:30 Glucose 396.0 mg/dL (70-115) H 12/11/24 09:30 Ionized Calcium 1.0 mmol/L (1.1-1.4) L 12/11/24 09:30 O2 Delivery Device Nc 12/11/24 09:30 O2 Liters/Min 2.0 % 12/11/24 09:30 FiO2 28.0 % 12/11/24 09:30 Asset Protection Associate ID Gd 12/11/24 09:30 Sodium 127 mmol/L (136-145) L 12/12/24 05:37 Potassium 3.6 mmol/L (3.5-5.1) 12/12/24 05:37 Chloride 86 mmol/L (98-107) L 12/12/24 05:37 Carbon Dioxide 16 mmol/L (22-29) L 12/12/24 05:37 Anion Gap 28.6 (5-19) H 12/12/24 05:37 BUN 119 mg/dL (6-20) H* 12/12/24 05:37 Creatinine 6.6 mg/dL (0.7-1.2) H* 12/12/24 05:37 GFR Calculation 8.7 mL/min (90-130) L 12/12/24 05:37 Glucose 372 mg/dL (65-115) H 12/12/24 05:37 POC Glucose 339 mg/dL (70-110) H 12/12/24 13:54 Estimat Average Glucose 192 12/11/24 04:55 Hemoglobin A1c 8.3 % (4.0-6.0) H 12/11/24 04:55 Calculated Osmolality 317 mOsm/kg (285-295) H 12/12/24 05:37 Lactic Acid 1.5 mmol/L (0.5-2.2) 12/07/24 16:24 Lactate 1.4 mmol/L (0.5-2.2) 12/10/24 11:15 Calcium 7.5 mg/dL (8.5-10.5) L 12/12/24 05:37 Phosphorus 6.5 mg/dL (2.5-4.5) H 12/12/24 05:37 Magnesium 2.0 mg/dL (1.7-2.3) 12/12/24 05:37 Iron 26 ug/dL (59-158) L 12/10/24 11:15 TIBC 193 mcg/dl 12/10/24 11:15 % Saturation 13.4 % (20-50) L 12/10/24 11:15 Unsat Iron Binding 167 ug/dL (112-347) 12/10/24 11:15 Ferritin 324 ng/mL (30-400) 12/10/24 11:15 Total Bilirubin 0.2 mg/dL (0.15-1.2) 12/12/24 05:37 AST 24 U/L (0-40) 12/12/24 05:37 ALT 19 U/L (0-41) 12/12/24 05:37 Alkaline Phosphatase 74 U/L (40-130) 12/12/24 05:37 Lactate Dehydrogenase 323 U/L (135-225) H 12/10/24 11:15 Creatine Kinase 371 U/L (39-308) H* 12/07/24 16:24 Troponin T Baseline 172 ng/L (0-15) H* 12/07/24 16:24 Troponin T 120 Minute 202.6 ng/L (0-15) H 12/07/24 18:42 Delta Troponin T 30.6 ABS# (0-10) H* 12/07/24 18:42 Troponin T Hi Sens 6Hr 219.7 ng/L (0-15) H 12/07/24 22:47 Troponin T Hi Sens 6Hr Delta 47.7 ng/L (0-12) H* 12/07/24 22:47 C-Reactive Protein 8.4 mg/L (0.0-4.9) H 12/08/24 04:24 NT-Pro-B Natriuret Pep 76953 pg/mL (0-125) H 12/07/24 16:24 Total Protein 6.7 g/dL (6.6-8.7) 12/12/24 05:37 Albumin 3.2 g/dL (3.5-5.2) L 12/12/24 05:37 Globulin 3.5 g/dL (1.3-4.6) 12/12/24 05:37 Mbssw-1-Ntsdqzdjd 0.4 g/dL (0.2-0.3) H 12/10/24 11:15 Ysllj-6-Fiymscxzp 1.1 g/dL (0.5-0.9) H 12/10/24 11:15 Whrr-8-Wzgjkpuf 0.3 g/dL (0.4-0.6) L 12/10/24 11:15 Dtot-7-Hsueaqqd 0.4 g/dL (0.2-0.5) 12/10/24 11:15 Gamma Globulins 0.6 g/dL (0.8-1.7) L 12/10/24 11:15 Abnorm Protein Band 1 Not Reportable 12/10/24 11:15 Lipase 21 U/L (13-60) 12/07/24 16:24 Folate 6.9 ng/mL (4.5-32.2) 12/08/24 18:10 Folate Cancelled 12/08/24 18:10 Procalcitonin 0.15 ng/mL (0-0.5) 12/08/24 04:24 PTH Intact 211.0 pg/mL (15-65) H 12/12/24 05:37 Calcium (PTH Intact) 8.5 mg/dL (8.5-10.5) 12/12/24 05:37 Urine Color Yellow (Yellow) 12/08/24 16:45 Urine Appearance Clear (CLEAR) 12/08/24 16:45 Urine pH 5.5 (5-7) 12/08/24 16:45 Ur Specific [place] 1.011 (1.005-1.030) 12/08/24 16:45 Urine Protein 3+ (Negative) A 12/08/24 16:45 Urine Glucose (UA) Trace (Normal) H 12/08/24 16:45 Urine Ketones Negative (Negative) 12/08/24 16:45 Urine Blood Negative (Negative) 12/08/24 16:45 Urine Nitrate Negative (Negative) 12/08/24 16:45 Urine Bilirubin Negative (Negative) 12/08/24 16:45 Urine Urobilinogen 0.2 mg/dL (Negative) 12/08/24 16:45 Ur Leukocyte Esterase Negative (Negative) 12/08/24 16:45 Urine RBC 0-2 /hpf (0-2) 12/08/24 16:45 Urine WBC 0-5 /hpf (0-5) 12/08/24 16:45 Ur Eosinophil Smear 0 (0-0) 12/08/24 16:45 Ur Squamous Epith Cells 0-5 /hpf (0-5) 12/08/24 16:45 Amorphous Sediment Not Reportable 12/08/24 16:45 Urine Bacteria None seen /hpf (NONE) 12/08/24 16:45 Hyaline Casts 2.87 /lpf 12/08/24 16:45 Urine Eosinophils No eosinophils seen 12/08/24 16:45 Ur Random Microalbumin 287 ug/dL (0-20) H 12/09/24 16:45 U Random Total Protein 415 mg/dL 12/09/24 16:45 Ur Random Sodium 101 mmol/L 12/08/24 16:45 Ur Random Potassium 27 mmol/L 12/08/24 16:45 Ur Random Chloride 105 mmol/L 12/08/24 16:45 Urine Creatinine 60 mg/dL (39-259) 12/09/24 16:45 Urine Creatinine 62 mg/dL (39-259) 12/09/24 16:45 Microalb/Creat Ratio 4783 mg/dL (0-20) H 12/09/24 16:45 Protein/Creatinin Ratio 6.69 mg/mg CR 12/09/24 16:45 U Abnormal Prot Band 2 Not Reportable 12/10/24 11:15 U Abnormal Prot Band 3 Not Reportable 12/10/24 11:15 Nasal MRSA (PCR) Not detected (Negative) 12/08/24 12:30 Urine Opiates Screen Negative ng/mL (Negative) 12/08/24 16:45 Ur Barbiturates Screen Negative ng/mL (Negative) 12/08/24 16:45 Ur Phencyclidine Scrn Negative ng/mL (Negative) 12/08/24 16:45 Ur Amphetamines Screen Negative ng/mL (Negative) 12/08/24 16:45 U Benzodiazepines Scrn Negative ng/mL (Negative) 12/08/24 16:45 Urine Cocaine Screen Negative ng/mL (Negative) 12/08/24 16:45 U Marijuana (THC) Screen Positive ng/mL (Negative) H 12/08/24 16:45 Serum Ketones Negative (Negative) 12/07/24 16:24 Pro Electrophoresis Int See note 12/10/24 11:15 KAM-1 Antibody <1.0 neg AI (<1.0 NEG) 12/09/24 12:28 SS-A/Ro IgG Antibody <1.0 neg AI (<1.0 NEG) 12/09/24 12:28 SS-B/La IgG Antibody <1.0 neg AI (<1.0 NEG) 12/09/24 12:28 Anti-nRNP/Sm IgG Ab <1.0 neg AI (<1.0 NEG) 12/09/24 12:28 Scl-70 Scleroderma Ab <1.0 neg AI (<1.0 NEG) 12/09/24 12:28 Anti-ds DNA IgG Ab <1 IU/mL 12/09/24 12:28 Complement C3 117 mg/dL (90-180) 12/10/24 11:15 Complement C4 32 mg/dL (10-40) 12/10/24 11:15 Free Kendall Light Chains 87.8 mg/L (3.3-19.4) H 12/10/24 11:15 Free Lambda Light Chain 32.6 mg/L (5.7-26.3) H 12/10/24 11:15 Free Kendall/Lambda Ratio 2.69 (0.26-1.65) H 12/10/24 11:15 Adenovirus (PCR) Not detected (NOT DETECT) 12/09/24 16:40 C. pneumoniae DNA (PCR) Not detected (NOT DETECT) 12/09/24 16:40 Coronavirus (PCR) Negative (Negative) 12/07/24 16:16 Coronavirus 229E (PCR) Not detected (NOT DETECT) 12/09/24 16:40 Hepatitis A IgM Ab Non-reactive (Nonreactive) 12/08/24 18:10 Hep Bs Antigen Non-reactive (Nonreactive) 12/10/24 11:15 Hep Bs Antibody < 3.5 (11.5-1000) L 12/10/24 11:15 Hep B Core Total Ab Non-reactive (Nonreactive) 12/10/24 11:15 Hepatitis C Antibody Non-reactive (Nonreactive) 12/10/24 11:15 Human Metapneumovir PCR Not detected (NOT DETECT) 12/09/24 16:40 Influenza A (H1) PCR Not detected (NOT DETECT) 12/09/24 16:40 Influenza A (PCR) Negative (Negative) 12/07/24 16:16 Influ A (H1/09) PCR Detected (NOT DETECT) A 12/09/24 16:40 Influenza A (H3) PCR Not detected (NOT DETECT) 12/09/24 16:40 Influenza Type A (PCR) Detected (NOT DETECT) A 12/09/24 16:40 Influenza Type B (PCR) Not detected (NOT DETECT) 12/09/24 16:40 M. pneumoniae (PCR) Not detected (NOT DETECT) 12/09/24 16:40 Parainfluenza 1 (PCR) Not detected (NOT DETECT) 12/09/24 16:40 Parainfluenza 2 (PCR) Not detected (NOT DETECT) 12/09/24 16:40 Parainfluenza 3 (PCR) Not detected (NOT DETECT) 12/09/24 16:40 Parainfluenza 4 (PCR) Not detected (NOT DETECT) 12/09/24 16:40 RSV (PCR) Negative (Negative) 12/07/24 16:16 RSV Type A (PCR) Not detected (NOT DETECT) 12/09/24 16:40 RSV Type B (PCR) Not detected (NOT DETECT) 12/09/24 16:40 Entero/Rhino (PCR) Not detected (NOT DETECT) 12/09/24 16:40 SARS-CoV-2 (PCR) Not detected (NOT DETECT) 12/09/24 16:40 Blood Type A Positive 12/10/24 11:15 Rho(D) Type Rh positive 12/10/24 11:15 Antibody Screen Negative 12/10/24 11:15 Crossmatch See Detail 12/10/24 11:[address] 12/08/24 12:10 IMPRESSION: Infiltrates in the bilateral upper lobes, consistent with pneumonia. Bilateral pleural effusions with lower lobe consolidation/collapse. Abdomen/Pelvis CT 12/09/24 08:28 IMPRESSION: 1. No bowel obstruction or acute inflammation. 2. Small bilateral pleural effusions with overlying passive atelectasis. Calcified granuloma right lung base. 3. Multiple patchy and nodular opacities in the bilateral lower mid and lower lungs. May represent aspiration pneumonitis, infectious or inflammatory etiology. Recommend correlation. 4. Mild colonic diverticulosis. Chest X-Ray 12/09/24 15:32 IMPRESSION: As above. Renal Ultrasound 12/09/24 16:07 IMPRESSION: Unremarkable kidneys and bladder. Recent Clincial Data Last Vital Signs Temp 97.5 F L 12/12/24 16:35 Pulse 79 12/12/24 16:35 Resp 18 12/12/24 16:35 BP 130/76 12/12/24 16:35 Pulse Ox 95 12/12/24 16:35 O2 Del Method Room Air 12/12/24 16:35 O2 Flow Rate 1 12/12/24 05:35 FiO2 50 12/10/24 01:14 Vital Signs Temp Pulse Resp BP Pulse Ox O2 Del Method O2 Flow Rate 12/12/24 16:35 97.5 F L 79 18 130/76 95 Room Air 12/12/24 16:00 85 18 94 Room Air 12/12/24 12:51 97.8 F 90 17 166/85 94 Room Air 12/12/24 11:45 88 18 96 Room Air 12/12/24 08:40 97.8 F 100 16 178/91 93 Room Air 12/12/24 08:00 Room Air 12/12/24 05:35 88 22 H 94 Nasal Cannula 1 Intake & Output/Weight 12/10/24 12/11/24 12/12/24 12/13/24 06:59 06:59 06:59 06:59 Intake Total 2391.617 / 2391.617 970 / 970 1618 / 1618 1418 / 1418 Output Total 1800 / 1800 1200 / 1200 600 / 600 Balance 591.617 / 591.617 -230 / -230 1018 / 1018 1418 / 1418 Weight 73.845 kg 75.841 kg 75.705 kg Vitals Last Vital Signs Temp 97.5 F L 12/12/24 16:35 Pulse 79 12/12/24 16:35 Resp 18 12/12/24 16:35 BP 130/76 12/12/24 16:35 Pulse Ox 95 12/12/24 16:35 O2 Del Method Room Air 12/12/24 16:35 O2 Flow Rate 1 12/12/24 05:35 FiO2 50 12/10/24 01:14 TS Medications Medications Acetaminophen (Acetaminophen 500 Mg Tablet) 500 mg PO Q4H PRN PRN Reason: fever Last Admin: 12/09/24 01:18 Dose: 500 mg Albuterol/Ipratropium (Ipratropium-Albuterol 3 Ml Neb) 3 ml INHALATION Q6H PRN PRN Reason: SHORTNESS OF BREATH Amlodipine Besylate (Amlodipine 10 Mg Tablet) 10 mg PO DAILY [facility] Last Admin: 12/12/24 09:49 Dose: 10 mg Benzonatate (Benzonatate 100 Mg Capsule) 100 mg PO TID [facility] Last Admin: 12/12/24 14:43 Dose: 100 mg Budesonide (Budesonide 0.5 Mg/2 Ml Neb) 0.5 mg INHALATION BID.RESPIRATORY [facility] Last Admin: 12/12/24 09:28 Dose: Not Given Bupropion HCl (Bupropion Xl (24 Hr) 150 Mg Tablet) 150 mg PO DAILY [facility] Last Admin: 12/12/24 12:30 Dose: Not Given Calcium Carbonate (Calcium Carbonate 500 Mg Chew Tablet) 1,000 mg PO Q6H PRN PRN Reason: HEARTBURN Last Admin: 12/12/24 00:24 Dose: 1,000 mg Carvedilol (Carvedilol 6.25 Mg Tablet) 6.25 mg PO BID [facility] Last Admin: 12/12/24 09:49 Dose: 6.25 mg Clonidine HCl (Clonidine 0.1 Mg/24 Hr Patch) 1 patch TRANSDERMA Q7D [facility] Last Admin: 12/09/24 11:53 Dose: 1 patch Clopidogrel Bisulfate (Clopidogrel 75 Mg Tablet) 75 mg PO DAILY [facility] Last Admin: 12/12/24 09:49 Dose: 75 mg Divalproex Sodium (Divalproex Dr 500 Mg Tablet) 500 mg PO Q12H [facility] Last Admin: 12/12/24 09:49 Dose: 500 mg Ezetimibe (Ezetimibe 10 Mg Tablet) 10 mg PO DAILY [facility] Last Admin: 12/12/24 09:49 Dose: 10 mg Glucagon (Glucagon 1 Mg/Ml Kit 1 Ml) 1 mg IM ONCE PRN; Protocol PRN Reason: Adult Acute Hypoglycemia Nursing Prot. Guaifenesin (Guaifenesin 100 Mg/5 Ml Udc 10 Ml) 200 mg PO Q4H PRN PRN Reason: COUGH AND CONGESTION Last Admin: 12/09/24 08:31 Dose: 200 mg Heparin Sodium (Porcine) (Heparin 5,000 Unit/Ml Inj 1 Ml) 5,000 unit SUBCUT Q12H [facility] Last Admin: 12/12/24 09:50 Dose: 5,000 unit Hydralazine HCl (Hydralazine 20 Mg/Ml Inj 1 Ml) 10 mg IVP Q4H PRN PRN Reason: SBP More than 160 mmhg Hydralazine HCl (Hydralazine 50 Mg Tablet) 50 mg PO TID [facility] Last Admin: 12/12/24 14:43 Dose: 50 mg Dextrose (D5w) 500 mls @ 0 mls/hr IV ONCE PRN; Protocol PRN Reason: Adult Acute Hypoglycemia Prot Dextrose (D10w) 125 mls @ 750 mls/hr IV PRN PRN; Protocol PRN Reason: Adult Acute Hypoglycemia Nursing Protocol Dextrose (D10w) 250 mls @ 1,000 mls/hr IV PRN PRN; Protocol PRN Reason: Adult Acute Hypoglycemia Nursing Protocol Methylprednisolone Sodium Succinate 500 mg/ Sodium Chloride 258 mls @ 258 mls/hr IV DAILY [facility] Stop: 12/13/24 09:59 Last Infusion: 12/12/24 12:30 Dose: Infused Insulin Human Lispro (Insulin Lispro 100 Unit/1 Ml) 0 unit SUBCUT WM&BEDTIME [facility]; Protocol Last Admin: 12/12/24 11:51 Dose: 20 unit Insulin Human Lispro (Insulin Lispro 100 Unit/1 Ml) 5 unit SUBCUT AC [facility] Ipratropium [place] (Ipratropium 0.5 Mg/2.5 Ml Neb) 0.5 mg INHALATION Q4H.RESPIRATORY [facility] Last Admin: 12/12/24 16:39 Dose: 0.5 mg Isosorbide Mononitrate (Isosorbide Mononitrate 20 Mg Tablet) 20 mg PO BID [facility] Last Admin: 12/12/24 09:48 Dose: 20 mg Levalbuterol HCl (Levalbuterol 0.63 Mg/3 Ml Neb) 0.63 mg INHALATION Q4H.RESPIRATORY [facility] Last Admin: 12/12/24 16:39 Dose: 0.63 mg Nicotine (Nicotine 14 Mg Patch) 1 patch TRANSDERMA DAILY [facility] Last Admin: 12/12/24 09:50 Dose: 1 patch Ondansetron HCl (Ondansetron 2 Mg/Ml Sdv 2 Ml) 4 mg IVP Q6H PRN PRN Reason: NAUSEA AND VOMITING Last Admin: 12/09/24 09:59 Dose: 4 mg Ondansetron HCl (Ondansetron 2 Mg/Ml Sdv 2 Ml) 4 mg IVP Q2M PRN PRN Reason: NAUSEA Oseltamivir Phosphate (Oseltamivir Phosphate 30 Mg Capsule) 30 mg PO DAILY [facility] Last Admin: 12/12/24 09:49 Dose: 30 mg Pantoprazole Sodium (Pantoprazole Dr 40 Mg Tablet) 40 mg PO DAILY [facility] Last Admin: 12/12/24 09:50 Dose: 40 mg Sevelamer Carbonate (Sevelamer 800 Mg Tablet) 1,600 mg PO TID [facility] Last Admin: 12/12/24 14:42 Dose: 1,600 mg Sodium Bicarbonate (Sodium Bicarbonate 650 Mg Tablet) 650 mg PO TID [facility] Last Admin: 12/12/24 14:42 Dose: 650 mg Discontinued Medications Albuterol/Ipratropium (Ipratropium-Albuterol 3 Ml Neb) 3 ml INHALATION Q6H.RESP [facility] Last Admin: 12/09/24 09:00 Dose: 3 ml Alprazolam (Alprazolam 0.5 Mg Tablet) 0.5 mg PO TID PRN PRN Reason: ANXIETY Last Admin: 12/09/24 12:09 Dose: 0.5 mg Aminophylline (Aminophylline 25 Mg/Ml Sdv 20 Ml) 25 mg IVP Q2M PRN PRN Reason: see dose instructions Stop: 12/11/24 06:19 Aspirin (Aspirin 81 Mg Chew Tablet) 324 mg PO NOW ONE Stop: 12/07/24 20:02 Last Admin: 12/07/24 21:22 Dose: 324 mg Aspirin (Aspirin 81 Mg Ec Tablet) 81 mg PO DAILY [facility] Last Admin: 12/11/24 09:12 Dose: 81 mg Clonidine HCl (Clonidine 0.1 Mg Tablet) 0.1 mg PO DAILY PRN PRN Reason: hypertensive emergency Clopidogrel Bisulfate (Clopidogrel 300 Mg Tablet) 600 mg PO ONCE ONE Stop: 12/07/24 20:02 Last Admin: 12/07/24 21:21 Dose: 600 mg Clopidogrel Bisulfate (Clopidogrel 300 Mg Tablet) 300 mg PO ONCE ONE Stop: 12/07/24 21:43 Last Admin: 12/07/24 22:32 Dose: 300 mg Doxycycline Monohydrate (Doxycycline 100 Mg Tablet) 100 mg PO BID [facility]; Protocol Last Admin: 12/09/24 09:48 Dose: 100 mg Epoetin Yoav (Epoetin Yoav 20,000 Unit/Ml Mdv (Esrd)) 20,000 unit SUBCUT NOW ONE Stop: 12/09/24 11:23 Last Admin: 12/09/24 11:52 Dose: 20,000 unit Epoetin Yoav-epbx (Epoetin Yoav-Epbx 10,000 Unit/Ml Sdv (Esrd)) 10,000 unit SUBCUT NOW ONE Stop: 12/10/24 10:31 Last Admin: 12/10/24 11:15 Dose: 10,000 unit Furosemide (Furosemide 10 Mg/Ml Sdv 10ml) 60 mg IVP ONCE ONE Stop: 12/07/24 15:53 Last Admin: 12/07/24 16:04 Dose: 60 mg Furosemide (Furosemide 10 Mg/Ml Sdv 4ml) 40 mg IVP Q12H [facility] Last Admin: 12/09/24 01:18 Dose: 40 mg Furosemide (Furosemide 10 Mg/Ml Sdv 2ml) 20 mg IVP Q24H [facility] Heparin Sodium (Porcine) (Heparin 5,000 Unit/Ml Inj 1 Ml) 0 unit IVP PRN PRN; Protocol PRN Reason: Heparin Weight Based Protocol -Subsequent Bolus Last Admin: 12/08/24 20:03 Dose: 1,500 unit Heparin Sodium (Porcine) (Heparin 5,000 Unit/Ml Inj 1 Ml) 0 unit IVP ONCE ONE; Protocol Stop: 12/07/24 20:02 Last Admin: 12/07/24 21:58 Dose: 3,700 unit Hydralazine HCl (Hydralazine 20 Mg/Ml Inj 1 Ml) 20 mg IVP ONCE ONE Stop: 12/07/24 15:58 Last Admin: 12/07/24 16:03 Dose: 20 mg Hydralazine HCl (Hydralazine 10 Mg Tablet) 10 mg PO TID PRN PRN Reason: Anxiety Hydralazine HCl (Hydralazine 10 Mg Tablet) 10 mg PO TID [facility] Last Admin: 12/08/24 08:16 Dose: 10 mg Hydralazine HCl (Hydralazine 10 Mg Tablet) 50 mg PO TID [facility] Last Admin: 12/10/24 08:59 Dose: 50 mg Hydrochlorothiazide (Hydrochlorothiazide 25 Mg Tablet) 25 mg PO DAILY [facility] Piperacillin Sod/Tazobactam (Sod 3.375 gm/ Sodium Chloride) 50 mls @ 100 mls/hr IV ONCE ONE; Protocol Stop: 12/07/24 19:19 Last Infusion: 12/07/24 23:17 Dose: Infused Heparin Sodium/Sodium Chloride (Heparin Drip) 25,000 unit in 500 mls @ 0 mls/hr IV CONT [facility]; Protocol Last Titration: 12/10/24 06:00 Dose: 0 unit/kg/hr, 0 mls/hr Ceftriaxone Sodium 1,000 mg/ (Sodium Chloride) 50 mls @ 100 mls/hr IV DAILY [facility]; Protocol Last Infusion: 12/09/24 10:55 Dose: Infused Sodium Chloride (Sodium Chloride 0.9%) 1,000 mls @ 75 mls/hr IV .[id number] [facility] Stop: 12/09/24 21:19 Last Infusion: 12/09/24 23:30 Dose: Infused Sterile Water (Water) Confirm Administered Dose 10 mls @ as directed .ROUTE .STK-MED ONE Stop: 12/09/24 16:52 Last Infusion: 12/09/24 17:35 Dose: Infused Ipratropium [place] (Ipratropium 0.5 Mg/2.5 Ml Neb) 0.5 mg INHALATION Q6H.RESP [facility] Last Admin: 12/09/24 14:50 Dose: 0.5 mg Labetalol HCl (Labetalol 5 Mg/Ml Sdv 20ml) 10 mg IVP ONCE ONE Stop: 12/07/24 15:57 Last Admin: 12/07/24 16:03 Dose: 10 mg Levalbuterol HCl (Levalbuterol 0.63 Mg/3 Ml Neb) 0.63 mg INHALATION Q6H.RESP [facility] Last Admin: 12/09/24 14:50 Dose: 0.63 mg Meropenem (Meropenem 1,000 Mg Sdv) 1,000 mg IVP Q24H [facility]; Protocol Last Admin: 12/10/24 15:33 Dose: 1,000 mg Methylprednisolone Sodium Succinate (Methylprednisolone Sod Succ 40 Mg/Ml Inj) 40 mg IVP Q8H [facility] Last Admin: 12/10/24 08:57 Dose: 40 mg Methylprednisolone Sodium Succinate (Methylprednisolone Sod Succ 40 Mg/Ml Inj) 40 mg IVP Q12H [facility] Last Admin: 12/10/24 21:05 Dose: 40 mg Metolazone (Metolazone 5 Mg Tablet) 5 mg PO ONCE ONE Stop: 12/08/24 12:10 Last Admin: 12/08/24 12:44 Dose: 5 mg Metoprolol Succinate (Metoprolol Succinate Er (24 Hr) 25 Mg Tablet) 25 mg PO DAILY [facility] [facility] Last Admin: 12/08/24 08:15 Dose: 25 mg Nitroglycerin (Nitroglycerin 0.4 Mg Sublingual Tablet) 0.4 mg SUBLINGUAL Q5M PRN PRN Reason: CHEST PAIN Stop: 12/11/24 06:19 Regadenoson (Regadenoson 0.4 Mg/5 Ml Syringe) 0.4 mg IVP ONCE PRN PRN Reason: Lexiscan Stress Test Last Admin: 12/10/24 07:26 Dose: 0.4 mg Sodium Chloride (Sodium Chloride 0.9% 100 Ml Bag) 50 ml IV PRN PRN PRN Reason: Blood transfusion prime and flush Stop: 12/11/24 09:18 Allergies No Known Allergies Allergy (Verified 12/06/24 13:24) Home Medications diabetic shoes w/ 3 inserts #1 ea 09/06/24 [Rx Confirmed 12/07/24] metformin 1,000 mg tablet 500 mg (1/2 x 1,000 mg) PO BID #30 tabs 09/12/24 [Rx Confirmed 12/07/24] aspirin 81 mg tablet,delayed release 81 mg PO DAILY #90 tabs 10/06/24 [Rx Confirmed 12/07/24] clonidine HCl 0.1 mg tablet 0.1 mg PO DAILY PRN hypertensive emergency #7 tabs 11/26/24 [Rx Confirmed 12/07/24] divalproex 250 mg tablet,delayed release (Depakote) 250 mg PO .7 pm #30 tabs 11/26/24 [Rx Confirmed 12/07/24] hydrochlorothiazide 25 mg tablet 25 mg PO DAILY 11/30/24 [History Confirmed 12/07/24] amlodipine 10 mg tablet 10 mg PO DAILY #90 tabs 12/06/24 [Rx Confirmed 12/07/24] ezetimibe 10 mg tablet 10 mg PO DAILY #90 tabs 12/06/24 [Rx Confirmed 12/07/24] pantoprazole 40 mg tablet,delayed release 40 mg PO DAILY 12/06/24 [History Confirmed 12/07/24] bupropion HCl 150 mg 24 hr tablet, extended release 150 mg PO DAILY 12/07/24 [History Confirmed 12/07/24] hydralazine 10 mg tablet 10 mg PO TID PRN Anxiety 12/07/24 [History Confirmed 12/07/24] metoprolol succinate 50 mg tablet,extended release 24 hr 25 mg PO DAILY 12/07/24 [History Confirmed 12/07/24] Discharge Plan Discharge Patient Disposition: Home Health Service Condition: Stable Prescriptions: No Action (DME) diabetic shoes w/ 3 inserts See Rx Instructions .Route .MEDSUPPLY Qty: 1 0RF Rx Instructions: As directed by HOME w/Right toe filler pantoprazole 40 mg tablet,delayed release (DR/EC) 40 mg PO DAILY ezetimibe 10 mg tablet 10 mg PO DAILY Qty: 90 1RF amlodipine 10 mg tablet 10 mg PO DAILY Qty: 90 1RF hydrochlorothiazide 25 mg tablet 25 mg PO DAILY divalproex [Depakote] 250 mg tablet,delayed release (DR/EC) 250 mg PO .7 pm Qty: 30 2RF clonidine HCl 0.1 mg tablet 0.1 mg PO DAILY PRN (Reason: hypertensive emergency) Qty: 7 1RF Rx Instructions: May take one tablet daily as needed for blood pressure systolic 160 or over aspirin 81 mg Tablet,Delayed Release (Dr/Ec) 81 mg PO DAILY Qty: 90 0RF metformin 1,000 mg tablet 500 mg PO BID Qty: 30 0RF metoprolol succinate 50 mg tablet extended release 24 hr 25 mg PO DAILY bupropion HCl 150 mg tablet extended release 24 hr 150 mg PO DAILY hydralazine 10 mg tablet 10 mg PO TID PRN (Reason: Anxiety) Referrals: [facility] [Outside] Pierce Justice MD [Primary Care Provider] - Patient Instructions: Opioid Safety Transfer Attestations Time Spent in Transfer Care: greater than 30 min Status at Transfer: Cognitive status at transfer: cognitively intact ; Behavioral status at transfer: cooperative ; Quality Metrics Clinical Quality Measures [ No reported AMI, CVA or VTE this stay] Coding Level of Care Code Acute Code for [facility] Diagnoses HALIE (acute kidney injury) N17.9
[2024-12-12 17:05] LABS: Glucose Point of Care 253 mg/dL (70-110)
[2024-12-12] MEDS: budesonide 0.5 mg/2 mL Neb INHALATION (20:33)
[2024-12-12 20:47] LABS: Glucose Point of Care 202 mg/dL (70-110)
[2024-12-13] VITALS (9 sets, daily range): BP systolic 119–162; BP diastolic 62–80; PULSE 76–92; RESP 16–18; TEMP 36.4–36.7; O2SAT 95–96
--- NOTE | 2024-12-13 00:51 | PC.NURSE ---
paient up on the side of the bed agitated and tearful. patient requesting a patient advocate and a request for provigial to be added to his medication list. a notification form filled out by nurse and nurse triggered director of social services to see patient. patient agreed and states he is going to try to go to sleep. upon leaving patients room patient is calm and resting. Dr to notified of patients requests.
[2024-12-13] MEDS: calcium carbonate 500 mg Chew Tablet 1000 MG PO (02:35)
[2024-12-13] MEDS: insulin lispro 100 unit/1 mL SUBCUT ×5 (05:45→20:22)
[2024-12-13 06:31] LABS: Glucose Point of Care 414 mg/dL (70-110)
[2024-12-13 07:08] LABS: Basophils % 0.1 %; Eosinophils % 0.1 %; Hematocrit 32.8 % (37-53); Lymphocytes # 0.5 10^3/uL (0.8-4.8); Lymphocytes % 5.1 %; Mean Corpuscular HGB Conc 33.5 g/dL (30-55); Mean Corpuscular Hemoglobin 29.4 pg (27-33); Mean Corpuscular Volume 87.7 fl (82-101); Mean Platelet Volume 11.4 fL (7.4-10.4); Monocytes # 0.4 10^3/uL (0.2-0.9); Monocytes % 4.2 %; Neutrophils # 8.18 10^3/uL (1.8-7.7); Nucleated Red Blood Cells % 0.4 %; Platelet Count 254 10^3/cmm (157-399); Red Blood Count 3.74 10^6/uL (3.85-5.65); Red Cell Distribution Width 13.4 % (12.1-15.1)
[2024-12-13 07:25] LABS: Alanine Aminotransferase 14 U/L (0-41); Albumin Level 2.9 g/dL (3.5-5.2); Alkaline Phosphatase 59 U/L (40-130); Anion Gap 30.1 (5-19); Aspartate Amino Transferase 19 U/L (0-40); Calcium 7.6 mg/dL (8.5-10.5); Carbon Dioxide 15 mmol/L (22-29); Chloride 84 mmol/L (98-107); Creatinine Clr Calc Pharmacy 11.8383; Glomerular Filtration Rate 8.4 mL/min (90-130); Glucose 380 mg/dL (65-115); Phosphorus 6.4 mg/dL (2.5-4.5); Potassium 3.1 mmol/L (3.5-5.1); Sodium 126 mmol/L (136-145); Total Bilirubin 0.2 mg/dL (0.15-1.2); Total Protein 5.9 g/dL (6.6-8.7)
[2024-12-13] MEDS: ipratropium 0.5 mg/2.5 mL Neb INHALATION (07:27)
[2024-12-13] MEDS: levalbuterol 0.63 mg/3 mL Neb INHALATION (07:27)
[2024-12-13] MEDS: budesonide 0.5 mg/2 mL Neb INHALATION (07:27)
[2024-12-13 07:37] LABS: Osmolality Calculated 321 mOsm/kg (285-295)
[2024-12-13 07:39] LABS: Blood Urea Nitrogen 134 mg/dL (6-20)
[2024-12-13 08:19] LABS: Glomerular Bsmt Membrane IGG <1.0 AI
--- NOTE | 2024-12-13 09:10 | P.PN_ITS ---
Subjective 2 Subjective: states he is starting to feel better. he consents to transfer and to renal bx. he denies n/v/f/ronnie/d. his sugars are high. Medications: Reviewed: Yes Medication Review Details: Current Medications Acetaminophen (Acetaminophen 500 Mg Tablet) 500 mg PO Q4H PRN PRN Reason: fever Last Admin: 12/09/24 01:18 Dose: 500 mg Albuterol/Ipratropium (Ipratropium-Albuterol 3 Ml Neb) 3 ml INHALATION Q6H PRN PRN Reason: SHORTNESS OF BREATH Amlodipine Besylate (Amlodipine 10 Mg Tablet) 10 mg PO DAILY [facility] Last Admin: 12/12/24 09:49 Dose: 10 mg Benzonatate (Benzonatate 100 Mg Capsule) 100 mg PO TID [facility] Last Admin: 12/12/24 21:20 Dose: 100 mg Budesonide (Budesonide 0.5 Mg/2 Ml Neb) 0.5 mg INHALATION BID.RESPIRATORY [facility] Last Admin: 12/13/24 07:27 Dose: 0.5 mg Bupropion HCl (Bupropion Xl (24 Hr) 150 Mg Tablet) 150 mg PO DAILY [facility] Last Admin: 12/12/24 12:30 Dose: Not Given Calcium Carbonate (Calcium Carbonate 500 Mg Chew Tablet) 1,000 mg PO Q6H PRN PRN Reason: HEARTBURN Last Admin: 12/13/24 02:35 Dose: 1,000 mg Carvedilol (Carvedilol 6.25 Mg Tablet) 6.25 mg PO BID [facility] Last Admin: 12/12/24 17:23 Dose: 6.25 mg Clonidine HCl (Clonidine 0.1 Mg/24 Hr Patch) 1 patch TRANSDERMA Q7D [facility] Last Admin: 12/09/24 11:53 Dose: 1 patch Clopidogrel Bisulfate (Clopidogrel 75 Mg Tablet) 75 mg PO DAILY [facility] Last Admin: 12/12/24 09:49 Dose: 75 mg Divalproex Sodium (Divalproex Dr 500 Mg Tablet) 500 mg PO Q12H [facility] Last Admin: 12/12/24 21:19 Dose: 500 mg Ezetimibe (Ezetimibe 10 Mg Tablet) 10 mg PO DAILY [facility] Last Admin: 12/12/24 09:49 Dose: 10 mg Glucagon (Glucagon 1 Mg/Ml Kit 1 Ml) 1 mg IM ONCE PRN; Protocol PRN Reason: Adult Acute Hypoglycemia Nursing Prot. Guaifenesin (Guaifenesin 100 Mg/5 Ml Udc 10 Ml) 200 mg PO Q4H PRN PRN Reason: COUGH AND CONGESTION Last Admin: 12/09/24 08:31 Dose: 200 mg Heparin Sodium (Porcine) (Heparin 5,000 Unit/Ml Inj 1 Ml) 5,000 unit SUBCUT Q12H [facility] Last Admin: 12/12/24 21:19 Dose: 5,000 unit Hydralazine HCl (Hydralazine 20 Mg/Ml Inj 1 Ml) 10 mg IVP Q4H PRN PRN Reason: SBP More than 160 mmhg Hydralazine HCl (Hydralazine 50 Mg Tablet) 50 mg PO TID [facility] Last Admin: 12/12/24 21:20 Dose: 50 mg Dextrose (D5w) 500 mls @ 0 mls/hr IV ONCE PRN; Protocol PRN Reason: Adult Acute Hypoglycemia Prot Dextrose (D10w) 125 mls @ 750 mls/hr IV PRN PRN; Protocol PRN Reason: Adult Acute Hypoglycemia Nursing Protocol Dextrose (D10w) 250 mls @ 1,000 mls/hr IV PRN PRN; Protocol PRN Reason: Adult Acute Hypoglycemia Nursing Protocol Methylprednisolone Sodium Succinate 500 mg/ Sodium Chloride 258 mls @ 258 mls/hr IV DAILY [facility] Stop: 12/13/24 09:59 Last Infusion: 12/12/24 12:30 Dose: Infused Insulin Human Lispro (Insulin Lispro 100 Unit/1 Ml) 0 unit SUBCUT WM&BEDTIME [facility]; Protocol Last Admin: 12/12/24 22:45 Dose: 6 unit Insulin Human Lispro (Insulin Lispro 100 Unit/1 Ml) 5 unit SUBCUT AC [facility] Last Admin: 12/13/24 05:45 Dose: 5 unit Ipratropium [place] (Ipratropium 0.5 Mg/2.5 Ml Neb) 0.5 mg INHALATION Q4H.RESPIRATORY [facility] Last Admin: 12/13/24 07:27 Dose: 0.5 mg Isosorbide Mononitrate (Isosorbide Mononitrate 20 Mg Tablet) 20 mg PO BID [facility] Last Admin: 12/12/24 17:23 Dose: 20 mg Levalbuterol HCl (Levalbuterol 0.63 Mg/3 Ml Neb) 0.63 mg INHALATION Q4H.RESPIRATORY [facility] Last Admin: 12/13/24 07:27 Dose: 0.63 mg Nicotine (Nicotine 14 Mg Patch) 1 patch TRANSDERMA DAILY [facility] Last Admin: 12/12/24 09:50 Dose: 1 patch Ondansetron HCl (Ondansetron 2 Mg/Ml Sdv 2 Ml) 4 mg IVP Q6H PRN PRN Reason: NAUSEA AND VOMITING Last Admin: 12/09/24 09:59 Dose: 4 mg Ondansetron HCl (Ondansetron 2 Mg/Ml Sdv 2 Ml) 4 mg IVP Q2M PRN PRN Reason: NAUSEA Oseltamivir Phosphate (Oseltamivir Phosphate 30 Mg Capsule) 30 mg PO DAILY [facility] Last Admin: 12/12/24 09:49 Dose: 30 mg Pantoprazole Sodium (Pantoprazole Dr 40 Mg Tablet) 40 mg PO DAILY [facility] Last Admin: 12/12/24 09:50 Dose: 40 mg Sevelamer Carbonate (Sevelamer 800 Mg Tablet) 1,600 mg PO TID [facility] Last Admin: 12/12/24 21:20 Dose: 1,600 mg Sodium Bicarbonate (Sodium Bicarbonate 650 Mg Tablet) 650 mg PO TID [facility] Last Admin: 12/12/24 21:20 Dose: 650 mg Vitals/I&O/Wt Last Vital Signs Temp 97.9 F 12/13/24 07:08 Pulse 90 12/13/24 07:44 Resp 18 12/13/24 07:27 BP 153/76 12/13/24 07:08 Pulse Ox 96 12/13/24 07:27 O2 Del Method Room Air 12/13/24 07:27 O2 Flow Rate 1 12/12/24 05:35 FiO2 50 12/10/24 01:14 12/12/24 12/13/24 12/13/24 22:59 06:59 14:59 Intake Total 1220 / 2638 Output Total 600 / 600 Balance 1220 / 2638 -600 / 8 Weight last 48 hrs Weight 78.88 kg Weight 75.705 kg Physical Exam 2 Narrative: obese in bed, comfortable, NARD VS noted- bp improving heent- nc/at, eomi neck supple lungs - good air movement b/l heart reg+ s1, s2 abdomen soft, + bs ext - min imal and improvedb/l leg edema neuro- + stocking/ glove neuropathy. no asterexis seen and examined w/ A/V equipment and the aid of a RN Data 12/13/24 06:37 12/13/24 06:37 Micro: Microbiology 12/07/24 20:19 Blood Culture - Final Blood NO GROWTH AFTER 5 DAYS 12/07/24 20:09 Blood Culture - Final Blood NO GROWTH AFTER 5 DAYS A&P Assessment and plan (1) HALIE (acute kidney injury): 59 yr old man DM, obesity, HTN, grade II/IV diastolic dysfunction. 1. ground glass infiltrates -influenza +. question if also s renal -pulm syndrome 2. Slow rise cr- January 2024- cr 1.1- 1.01 June 2024 cr 1.03 sep 2024- cr 2- 4 mg/dl, sep- dec 2024- cr 4-4.7. now w/ HALIE- cr up to 6.8 mg/dl- hopsfully cr will plateau soon -h/o ANCA + 1:20 p ANCA in sep 2024 -await ANCA, SIFE Free light chain kappa: lambda ratio of 2.7 and no m-spike- unlikely myeloma or amyloid - normal complements, anti-dsDNA negative. await cristina, anti-gbm, he has increasing UACR - 4783, UPCR 6.7 he had an ANCA of 1:20 + in past full anemia eval- however, cr rise has been in steps -we stopped magdalena-i in Sep 2024 -given rapid rise in cr, low +ANCA, though no hematuria. would recommend renal biopsy to see if he has a reversible disease -we started solumedrol 500 mg iv daily- today is dose #3, then would start prednisone 60 mg po daily, -please treat his elevated glucose. We did not give solumedrol 1 gm fdaily- due to hyperglycemia -he is awaiting transfer for a renal biopsy. 3. high anion gap metabolic acidosis, ph 7.34 repeat urine for ketones- consider insulin drip -give sodium bicarbonate 4. bp elevted- monitor, no magdalena-i 5. influenzae a as per medicine 6. hyponatremia from HALIE. also serum corrects to >130 as glucose in 380 sodium bicarb and phos binders =may need dialysis soon 7. replace potassium seen and examined w/ A/V equipment with aid of a RN pt consents to renal biospy, transfer if possible, and to telehealth Plan see above PDMP PDMP Reviewed: Not Reviewed Attestations 2 Medical Necessity Statement*: halie, electrolyte abnoralities, hyperglycemia Time Spent in Patient Care: Greater than 35 minutes (>than 50% of time spent in counselling and/or direct pt care on unit) . Coding Level of Care Code Acute Code for [facility] Diagnoses HALIE (acute kidney injury) N17.9
[2024-12-13] MEDS: sevelamer 800 mg Tablet 1600 MG PO ×2 (09:31→20:15)
[2024-12-13] MEDS: buPROPion XL (24 HR) 150 mg Tablet PO (09:31)
[2024-12-13] MEDS: oseltamivir phosphate 30 mg Capsule PO (09:31)
[2024-12-13] MEDS: hyDRALAzine 50 mg Tablet PO ×2 (09:31→20:15)
[2024-12-13] MEDS: pantoprazole DR 40 mg Tablet PO (09:31)
[2024-12-13] MEDS: heparin 5,000 unit/mL INJ 1 mL 5000 UNIT SUBCUT ×2 (09:31→20:15)
[2024-12-13] MEDS: clopidogrel 75 mg Tablet PO (09:31)
[2024-12-13] MEDS: amlodipine 10 mg Tablet PO (09:31)
[2024-12-13] MEDS: benzonatate 100 mg Capsule PO ×2 (09:31→20:15)
[2024-12-13] MEDS: isosorbide mononitrate 20 mg Tablet PO ×2 (09:31→18:37)
[2024-12-13] MEDS: divalproex DR 500 mg Tablet PO ×2 (09:31→21:30)
[2024-12-13] MEDS: ezetimibe 10 mg Tablet PO (09:31)
[2024-12-13] MEDS: carvedilol 6.25 mg Tablet PO ×2 (09:31→18:37)
[2024-12-13] MEDS: nicotine 14 mg Patch 1 PATCH TRANSDERMA (09:32)
[2024-12-13 11:45] LABS: Glucose Point of Care 338 mg/dL (70-110)
[2024-12-13] MEDS: potassium chloride ER 20 mEq Tablet 40 MEQ PO (12:27)
[2024-12-13] MEDS: sodium bicarbonate 50 MEQ in sodium chloride 0.45% 1,000 ML 100 MEQ IV (13:50)
[2024-12-13 15:15] LABS: ANCA Screen NEGATIVE (NEGATIVE)
[2024-12-13 17:13] LABS: Alanine Aminotransferase 16 U/L (0-41); Albumin Level 3.2 g/dL (3.5-5.2); Alkaline Phosphatase 60 U/L (40-130); Anion Gap 26.3 (5-19); Aspartate Amino Transferase 19 U/L (0-40); Calcium 7.6 mg/dL (8.5-10.5); Carbon Dioxide 17 mmol/L (22-29); Chloride 91 mmol/L (98-107); Creatinine Clr Calc Pharmacy 11.8383; Globulin 2.6 g/dL (1.3-4.6); Glomerular Filtration Rate 8.4 mL/min (90-130); Glucose 196 mg/dL (65-115); Magnesium 2.2 mg/dL (1.7-2.3); Potassium 3.3 mmol/L (3.5-5.1); Sodium 131 mmol/L (136-145); Total Bilirubin 0.2 mg/dL (0.15-1.2); Total Protein 5.8 g/dL (6.6-8.7)
[2024-12-13 17:42] LABS: Osmolality Calculated 320 mOsm/kg (285-295)
[2024-12-13 17:43] LABS: Blood Urea Nitrogen 133 mg/dL (6-20)
--- NOTE | 2024-12-13 19:21 | PM.TDS ---
Transfer Summary Providers Date of Admission: 12/07/24 20:04 Date of Discharge/Transfer: 12/13/24 Attending Provider at Admission: Mariaelena Hanson MD Attending Provider at Transfer: Jere Loza MD Consults: Dr Hood Nephrology and Dr. Tubbs Nephrology Primary Care Provider: Pierce Justice MD Transfer Plans: Anticipated date of transfer: 12/13/24. Diagnoses at Discharge Discharge Diagnosis (1) HALIE (acute kidney injury): Details from hospital stay: Patient with rising creatinine from noted 1.4 on May 2024 at precipitously kings by December 2024-4.5 now peaked at 6.8 and stable. He is going to transfer to [facility] for biopsy. Bed became available today and we are awaiting ambulance transfer. Status: Acute Reason for Visit Reason for Visit resp distress Hospital Course Hospital Course 59-year-old male who was admitted for management evaluation of shortness of breath while he was shopping at the [facility] [employer], he was diagnosed with influenza A, he was requiring 3 L of oxygen, he was treated conservatively, during hospitalization he was treated for non-STEMI as well for increase of troponin, he finished 48 hours on heparin drip, cardiac stress test was done at the end because patient remained asymptomatic and echo did not show any wall motion abnormality, history of cardiac stress test did not show any coronary ischemic changes, his creatinine kept getting worse, nephrology was consulted who recommended addition of high-dose steroids which were added 12/11 500 mg methylprednisolone, nephrology has recommended renal biopsy and closer monitoring to see if patient would require dialysis, for now he is making urine up to 800 to 1200 mL/day. Nephrology also requested complement studies, c-ANCA, hepatitis panel, CRISTINA, results are pending. Patient was presented to [facility], patient was presented to [facility] nurse practitioner for nephrology who accepted the patient and then this was presented to hospitalist RN who accepted the patient as well, accepting physician will be Dr. Gabrielle Flynn note brief excerpt:- . Slow rise cr- January 2024- cr 1.1- 1.01 June 2024 cr 1.03 sep 2024- cr 2- 4 mg/dl, sep- dec 2024- cr 4-4.7. now w/ HALIE- cr up to 6.4 -h/o ANCA + 1:20 p ANCA in sep 2024 -await ANCA, SIFE Free light chain kappa: lambda ratio of 2.7 and no m-spike- unlikely myeloma or amyloid - normal complements, anti-dsDNA negative. await cristina, anti-gbm, he has increasing UACR - 4783, UPCR 6.7 he had an ANCA of 1:20 + in past full anemia eval- however, cr rise has been in steps -we stopped magdalena-i in Sep 2024 -given rapid rise in cr, low +ANCA, though no hematuria. would recommend renal biopsy to see if he has a reversible disease -we started solumedrol 500 mg iv yesterday, as he has high glucose, will not increase his dose -recommedn transfer for a renal biopsy. 3. 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 use Diabetes mellitus complication status: without complication Qualified Code(s): E11.9 - Type 2 diabetes mellitus without complications; 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.4 - 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 (10) Non-STEMI (non-ST elevated myocardial infarction): (11) Essential hypertension: (12) Bipolar II disorder: Plan Acute on chronic kidney disease Positive ANCA antibodies, no hematuria, proteinuria positive Starting steroids today 12/11 high-dose steroids Monitor blood sugar, use insulin sliding scale Nephro recommended renal biopsy Patient need to be transferred to tertiary center Hypertension: Optimize antihypertensive regimen Influenza A related hypoxia: Currently on 2 L nasal cannula, patient endorsing feeling better oxygen weaned down from 9 L to 2 L today stress test did not show any acute ischemic changes no need of coronary angiogram as per cardiology Non-STEMI: Finished ACS protocol Callus of heel without any signs of infection Can be transferred out of ICU to [facility] Renal nondialysis diet Full code Nephro was concerned about renal pulmonary syndrome considering acute hypoxia patient requiring oxygen Monitor for now DVT prophylaxis heparin Physical Exam Narrative: General Well-developed anxious emotional and somewhat argumentative male states that he needs Provigil. States that he had this given before and it helps him focus and helps him with his anxiety. I discussed that this is off label. 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 CV regular rate and rhythm Lungs clear to auscultation bilaterally Abdomen positive bowel sounds soft nontender Calves 1+ to 2 bilateral pretibial edema TS Data Studies Completed and Pending Pending at discharge Category Date Time Status CRISTINA Screen w/ Reflex Routine Lab 12/11/24 10:29 Received ANCA [Anti-Neutrophil Cytoplasmic AB] Routine Lab 12/09/24 12:28 Received Complete Blood Count w/Auto AM LABS Lab 12/14/24 04:00 Ordered Comprehensive Metabolic Panel AM LABS Lab 12/14/24 04:00 Ordered Immunofixation Serum Stat Lab 12/10/24 11:15 Received Magnesium AM LABS Lab 12/14/24 04:00 Ordered Phosphorus AM LABS Lab 12/14/24 04:00 Ordered SPEP [Total Protein Electrophoresis] Routine Lab 12/08/24 18:10 Results Completed Studies During Hospitalization Category Date Time Status CT abdomen pelvis wo con [id number] Routine Cat Scan 12/09/24 08:[address] chest wo con [id number] Urgent Cat Scan 12/08/24 12:10 Completed Sestamibi Stress Test Request Routine Exams 12/08/24 12:10 Draft XR chest 1V portable [id number] Routine Exams 12/09/24 15:32 Completed XR chest 1V portable [id number] Stat Exams 12/07/24 15:49 Completed NM ramya perf SPECT r/s* [id number] Routine Nuc Med 12/10/24 12:10 Completed CV. echo complete* [id number] Routine Ultrasound 12/08/24 21:42 Completed US renal BI* [id number] Routine Ultrasound 12/09/24 16:07 Completed Laboratory Last Values WBC 9.20 10^3/uL (3.29-11.43) 12/13/24 06:37 Corrected WBC Cancelled 12/09/24 03:54 RBC 3.74 10^6/uL (3.85-5.65) L 12/13/24 06:37 Hgb 11.00 g/dL (11.27-16.99) L 12/13/24 06:37 Hct 32.8 % (37-53) L 12/13/24 06:37 MCV 87.7 fl (82-101) 12/13/24 06:37 MCH 29.4 pg (27-33) 12/13/24 06:37 MCHC 33.5 g/dL (30-55) 12/13/24 06:37 RDW 13.4 % (12.1-15.1) 12/13/24 06:37 Plt Count 254 10^3/cmm (157-399) 12/13/24 06:37 MPV 11.4 fL (7.4-10.4) H 12/13/24 06:37 Gran % Cancelled 12/09/24 03:54 Neut % (Auto) 89.0 % 12/13/24 06:37 Lymph % (Auto) 5.1 % 12/13/24 06:37 Forrest % (Auto) 4.2 % 12/13/24 06:37 Eos % (Auto) 0.1 % 12/13/24 06:37 Baso % (Auto) 0.1 % 12/13/24 06:37 Reticulocyte % (Auto) 1.4 % (0.5-2.0) 12/10/24 11:15 Neut # (Auto) 8.18 10^3/uL (1.8-7.7) H 12/13/24 06:37 Lymph # (Auto) 0.5 10^3/uL (0.8-4.8) L 12/13/24 06:37 Forrest # (Auto) 0.4 10^3/uL (0.2-0.9) 12/13/24 06:37 Eos # (Auto) 0.0 10^3/uL (0.0-0.8) 12/13/24 06:37 Baso # (Auto) 0.0 10^3/uL (0.0-0.1) 12/13/24 06:37 Absolute Gran (auto) Cancelled 12/09/24 03:54 Nucleated RBC % (auto) 0.4 % 12/13/24 06:37 Nucleated RBCs # 0.0 /100WBC 12/13/24 06:37 Haptoglobin 367.0 mg/L (30-200) H 12/10/24 11:15 APTT 97.3 SECONDS (23.9-36.7) H 12/10/24 02:52 D-Dimer 1.48 ug/mLFEU (0-0.59) H 12/07/24 16:24 Specimen Type Arterial 12/11/24 09:30 Sample Site Radial, left 12/11/24 09:30 ABG pH 7.34 (7.35-7.45) L 12/11/24 09:30 ABG pCO2 33.0 mmHg (35-45) L 12/11/24 09:30 ABG pO2 77.7 mmHg (80.0-100.0) L 12/11/24 09:30 ABG PO2/FiO2 Ratio 277 12/11/24 09:30 ABG HCO3 17.6 mmol/L (22-26) L 12/11/24 09:30 ABG O2 Saturation 94.0 12/11/24 09:30 ABG Base Excess -7.3 mmol/L (-2.0-2.0) L 12/11/24 09:30 Dl Test Pos 12/11/24 09:30 A-a O2 Gradient 10.4 mmHg (5-10) H 12/11/24 09:30 Hematocrit 34.8 % (42-52) L 12/11/24 09:30 Hgb O2 Saturation 92.3 % (95-100) L 12/11/24 09:30 Carboxyhemoglobin 0.4 %THgb (0.4-20.1) 12/11/24 09:30 Methemoglobin 1.4 % (0.4-1.5) 12/11/24 09:30 Total Hemoglobin 11.3 g/dL (14-18) L 12/11/24 09:30 Sodium 128.0 mmol/L (131-143) L 12/11/24 09:30 Potassium 3.5 mmol/L (3.5-5.0) 12/11/24 09:30 Glucose 396.0 mg/dL (70-115) H 12/11/24 09:30 Ionized Calcium 1.0 mmol/L (1.1-1.4) L 12/11/24 09:30 O2 Delivery Device Nc 12/11/24 09:30 O2 Liters/Min 2.0 % 12/11/24 09:30 FiO2 28.0 % 12/11/24 09:30 Camp Advisor ID Gd 12/11/24 09:30 Sodium 131 mmol/L (136-145) L 12/13/24 15:55 Potassium 3.3 mmol/L (3.5-5.1) L 12/13/24 15:55 Chloride 91 mmol/L (98-107) L 12/13/24 15:55 Carbon Dioxide 17 mmol/L (22-29) L 12/13/24 15:55 Anion Gap 26.3 (5-19) H 12/13/24 15:55 BUN 133 mg/dL (6-20) H* 12/13/24 15:55 Creatinine 6.8 mg/dL (0.7-1.2) H* 12/13/24 15:55 GFR Calculation 8.4 mL/min (90-130) L 12/13/24 15:55 Glucose 196 mg/dL (65-115) H 12/13/24 15:55 POC Glucose 338 mg/dL (70-110) H 12/13/24 11:41 Estimat Average Glucose 192 12/11/24 04:55 Hemoglobin A1c 8.3 % (4.0-6.0) H 12/11/24 04:55 Calculated Osmolality 320 mOsm/kg (285-295) H 12/13/24 15:55 Lactic Acid 1.5 mmol/L (0.5-2.2) 12/07/24 16:24 Lactate 1.4 mmol/L (0.5-2.2) 12/10/24 11:15 Calcium 7.6 mg/dL (8.5-10.5) L 12/13/24 15:55 Phosphorus 6.4 mg/dL (2.5-4.5) H 12/13/24 06:37 Magnesium 2.2 mg/dL (1.7-2.3) 12/13/24 15:55 Iron 26 ug/dL (59-158) L 12/10/24 11:15 TIBC 193 mcg/dl 12/10/24 11:15 % Saturation 13.4 % (20-50) L 12/10/24 11:15 Unsat Iron Binding 167 ug/dL (112-347) 12/10/24 11:15 Ferritin 324 ng/mL (30-400) 12/10/24 11:15 Total Bilirubin 0.2 mg/dL (0.15-1.2) 12/13/24 15:55 AST 19 U/L (0-40) 12/13/24 15:55 ALT 16 U/L (0-41) 12/13/24 15:55 Alkaline Phosphatase 60 U/L (40-130) 12/13/24 15:55 Lactate Dehydrogenase 323 U/L (135-225) H 12/10/24 11:15 Creatine Kinase 371 U/L (39-308) H* 12/07/24 16:24 Troponin T Baseline 172 ng/L (0-15) H* 12/07/24 16:24 Troponin T 120 Minute 202.6 ng/L (0-15) H 12/07/24 18:42 Delta Troponin T 30.6 ABS# (0-10) H* 12/07/24 18:42 Troponin T Hi Sens 6Hr 219.7 ng/L (0-15) H 12/07/24 22:47 Troponin T Hi Sens 6Hr Delta 47.7 ng/L (0-12) H* 12/07/24 22:47 C-Reactive Protein 8.4 mg/L (0.0-4.9) H 12/08/24 04:24 NT-Pro-B Natriuret Pep 72877 pg/mL (0-125) H 12/07/24 16:24 Total Protein 5.8 g/dL (6.6-8.7) L 12/13/24 15:55 Albumin 3.2 g/dL (3.5-5.2) L 12/13/24 15:55 Globulin 2.6 g/dL (1.3-4.6) 12/13/24 15:55 Scfwy-3-Lfqhtgnib 0.4 g/dL (0.2-0.3) H 12/10/24 11:15 Ozmxq-1-Zxsysryzi 1.1 g/dL (0.5-0.9) H 12/10/24 11:15 Gzue-2-Qtipjbfm 0.3 g/dL (0.4-0.6) L 12/10/24 11:15 Bxhg-8-Vkniihrn 0.4 g/dL (0.2-0.5) 12/10/24 11:15 Gamma Globulins 0.6 g/dL (0.8-1.7) L 12/10/24 11:15 Abnorm Protein Band 1 Not Reportable 12/10/24 11:15 Lipase 21 U/L (13-60) 12/07/24 16:24 Folate 6.9 ng/mL (4.5-32.2) 12/08/24 18:10 Folate Cancelled 12/08/24 18:10 Procalcitonin 0.15 ng/mL (0-0.5) 12/08/24 04:24 PTH Intact 211.0 pg/mL (15-65) H 12/12/24 05:37 Calcium (PTH Intact) 8.5 mg/dL (8.5-10.5) 12/12/24 05:37 Urine Color Yellow (Yellow) 12/08/24 16:45 Urine Appearance Clear (CLEAR) 12/08/24 16:45 Urine pH 5.5 (5-7) 12/08/24 16:45 Ur Specific [place] 1.011 (1.005-1.030) 12/08/24 16:45 Urine Protein 3+ (Negative) A 12/08/24 16:45 Urine Glucose (UA) Trace (Normal) H 12/08/24 16:45 Urine Ketones Negative (Negative) 12/08/24 16:45 Urine Blood Negative (Negative) 12/08/24 16:45 Urine Nitrate Negative (Negative) 12/08/24 16:45 Urine Bilirubin Negative (Negative) 12/08/24 16:45 Urine Urobilinogen 0.2 mg/dL (Negative) 12/08/24 16:45 Ur Leukocyte Esterase Negative (Negative) 12/08/24 16:45 Urine RBC 0-2 /hpf (0-2) 12/08/24 16:45 Urine WBC 0-5 /hpf (0-5) 12/08/24 16:45 Ur Eosinophil Smear 0 (0-0) 12/08/24 16:45 Ur Squamous Epith Cells 0-5 /hpf (0-5) 12/08/24 16:45 Amorphous Sediment Not Reportable 12/08/24 16:45 Urine Bacteria None seen /hpf (NONE) 12/08/24 16:45 Hyaline Casts 2.87 /lpf 12/08/24 16:45 Urine Eosinophils No eosinophils seen 12/08/24 16:45 Ur Random Microalbumin 287 ug/dL (0-20) H 12/09/24 16:45 U Random Total Protein 415 mg/dL 12/09/24 16:45 Ur Random Sodium 101 mmol/L 12/08/24 16:45 Ur Random Potassium 27 mmol/L 12/08/24 16:45 Ur Random Chloride 105 mmol/L 12/08/24 16:45 Urine Creatinine 60 mg/dL (39-259) 12/09/24 16:45 Urine Creatinine 62 mg/dL (39-259) 12/09/24 16:45 Microalb/Creat Ratio 4783 mg/dL (0-20) H 12/09/24 16:45 Protein/Creatinin Ratio 6.69 mg/mg CR 12/09/24 16:45 U Abnormal Prot Band 2 Not Reportable 12/10/24 11:15 U Abnormal Prot Band 3 Not Reportable 12/10/24 11:15 Nasal MRSA (PCR) Not detected (Negative) 12/08/24 12:30 Urine Opiates Screen Negative ng/mL (Negative) 12/08/24 16:45 Ur Barbiturates Screen Negative ng/mL (Negative) 12/08/24 16:45 Ur Phencyclidine Scrn Negative ng/mL (Negative) 12/08/24 16:45 Ur Amphetamines Screen Negative ng/mL (Negative) 12/08/24 16:45 U Benzodiazepines Scrn Negative ng/mL (Negative) 12/08/24 16:45 Urine Cocaine Screen Negative ng/mL (Negative) 12/08/24 16:45 U Marijuana (THC) Screen Positive ng/mL (Negative) H 12/08/24 16:45 Serum Ketones Negative (Negative) 12/07/24 16:24 Pro Electrophoresis Int See note 12/10/24 11:15 ANCA Screen Negative (NEGATIVE) 12/10/24 11:15 ANCA Titer Not Reportable 12/10/24 11:15 KAM-1 Antibody <1.0 neg AI (<1.0 NEG) 12/09/24 12:28 SS-A/Ro IgG Antibody <1.0 neg AI (<1.0 NEG) 12/09/24 12:28 SS-B/La IgG Antibody <1.0 neg AI (<1.0 NEG) 12/09/24 12:28 Anti-nRNP/Sm IgG Ab <1.0 neg AI (<1.0 NEG) 12/09/24 12:28 Scl-70 Scleroderma Ab <1.0 neg AI (<1.0 NEG) 12/09/24 12:28 Anti-ds DNA IgG Ab <1 IU/mL 12/09/24 12:28 Glomerular Base Mem IgG <1.0 AI 12/10/24 11:15 Complement C3 117 mg/dL (90-180) 12/10/24 11:15 Complement C4 32 mg/dL (10-40) 12/10/24 11:15 Free [place] Light Chains 87.8 mg/L (3.3-19.4) H 12/10/24 11:15 Free Lambda Light Chain 32.6 mg/L (5.7-26.3) H 12/10/24 11:15 Free [place]/Lambda Ratio 2.69 (0.26-1.65) H 12/10/24 11:15 Adenovirus (PCR) Not detected (NOT DETECT) 12/09/24 16:40 C. pneumoniae DNA (PCR) Not detected (NOT DETECT) 12/09/24 16:40 Coronavirus (PCR) Negative (Negative) 12/07/24 16:16 Coronavirus 229E (PCR) Not detected (NOT DETECT) 12/09/24 16:40 Hepatitis A IgM Ab Non-reactive (Nonreactive) 12/08/24 18:10 Hep Bs Antigen Non-reactive (Nonreactive) 12/10/24 11:15 Hep Bs Antibody < 3.5 (11.5-1000) L 12/10/24 11:15 Hep B Core Total Ab Non-reactive (Nonreactive) 12/10/24 11:15 Hepatitis C Antibody Non-reactive (Nonreactive) 12/10/24 11:15 Human Metapneumovir PCR Not detected (NOT DETECT) 12/09/24 16:40 Influenza A (H1) PCR Not detected (NOT DETECT) 12/09/24 16:40 Influenza A (PCR) Negative (Negative) 12/07/24 16:16 Influ A (H1/09) PCR Detected (NOT DETECT) A 12/09/24 16:40 Influenza A (H3) PCR Not detected (NOT DETECT) 12/09/24 16:40 Influenza Type A (PCR) Detected (NOT DETECT) A 12/09/24 16:40 Influenza Type B (PCR) Not detected (NOT DETECT) 12/09/24 16:40 M. pneumoniae (PCR) Not detected (NOT DETECT) 12/09/24 16:40 Parainfluenza 1 (PCR) Not detected (NOT DETECT) 12/09/24 16:40 Parainfluenza 2 (PCR) Not detected (NOT DETECT) 12/09/24 16:40 Parainfluenza 3 (PCR) Not detected (NOT DETECT) 12/09/24 16:40 Parainfluenza 4 (PCR) Not detected (NOT DETECT) 12/09/24 16:40 RSV (PCR) Negative (Negative) 12/07/24 16:16 RSV Type A (PCR) Not detected (NOT DETECT) 12/09/24 16:40 RSV Type B (PCR) Not detected (NOT DETECT) 12/09/24 16:40 Entero/Rhino (PCR) Not detected (NOT DETECT) 12/09/24 16:40 SARS-CoV-2 (PCR) Not detected (NOT DETECT) 12/09/24 16:40 Blood Type A Positive 12/10/24 11:15 Rho(D) Type Rh positive 12/10/24 11:15 Antibody Screen Negative 12/10/24 11:15 Crossmatch See Detail 12/10/24 11:[address] 12/08/24 12:10 IMPRESSION: Infiltrates in the bilateral upper lobes, consistent with pneumonia. Bilateral pleural effusions with lower lobe consolidation/collapse. Abdomen/Pelvis CT 12/09/24 08:28 IMPRESSION: 1. No bowel obstruction or acute inflammation. 2. Small bilateral pleural effusions with overlying passive atelectasis. Calcified granuloma right lung base. 3. Multiple patchy and nodular opacities in the bilateral lower mid and lower lungs. May represent aspiration pneumonitis, infectious or inflammatory etiology. Recommend correlation. 4. Mild colonic diverticulosis. Chest X-Ray 12/09/24 15:32 IMPRESSION: As above. Renal Ultrasound 12/09/24 16:07 IMPRESSION: Unremarkable kidneys and bladder. Recent Clincial Data Last Vital Signs Temp 97.5 F L 12/13/24 15:41 Pulse 76 12/13/24 15:41 Resp 16 12/13/24 15:41 BP 119/62 12/13/24 15:41 Pulse Ox 96 12/13/24 15:41 O2 Del Method Room Air 12/13/24 15:41 O2 Flow Rate 1 12/12/24 05:35 FiO2 50 12/10/24 01:14 Vital Signs Temp Pulse Resp BP Pulse Ox O2 Del Method 12/13/24 15:41 97.5 F L 76 16 119/62 96 Room Air 12/13/24 12:11 97.9 F 91 18 162/80 96 Room Air 12/13/24 07:44 90 12/13/24 07:27 91 18 96 Room Air Intake & Output/Weight 12/11/24 12/12/24 12/13/24 12/14/24 06:59 06:59 06:59 06:59 Intake Total 970 / 970 1618 / 1618 2638 / 2638 858 / 858 Output Total 1200 / 1200 600 / 600 600 / 600 Balance -230 / -230 1018 / 1018 8 / 8 858 / 858 Weight 75.841 kg 75.705 kg 78.88 kg Vitals Last Vital Signs Temp 97.5 F L 12/13/24 15:41 Pulse 76 12/13/24 15:41 Resp 16 12/13/24 15:41 BP 119/62 12/13/24 15:41 Pulse Ox 96 12/13/24 15:41 O2 Del Method Room Air 12/13/24 15:41 O2 Flow Rate 1 12/12/24 05:35 FiO2 50 12/10/24 01:14 TS Medications Medications Acetaminophen (Acetaminophen 500 Mg Tablet) 500 mg PO Q4H PRN PRN Reason: fever Last Admin: 12/09/24 01:18 Dose: 500 mg Albuterol/Ipratropium (Ipratropium-Albuterol 3 Ml Neb) 3 ml INHALATION Q6H PRN PRN Reason: SHORTNESS OF BREATH Amlodipine Besylate (Amlodipine 10 Mg Tablet) 10 mg PO DAILY EVELIO Last Admin: 12/13/24 09:31 Dose: 10 mg Benzonatate (Benzonatate 100 Mg Capsule) 100 mg PO TID EVELIO Last Admin: 12/13/24 16:28 Dose: Not Given Budesonide (Budesonide 0.5 Mg/2 Ml Neb) 0.5 mg INHALATION BID.RESPIRATORY EVELIO Last Admin: 12/13/24 07:27 Dose: 0.5 mg Bupropion HCl (Bupropion Xl (24 Hr) 150 Mg Tablet) 150 mg PO DAILY [facility] Last Admin: 12/13/24 09:31 Dose: 150 mg Calcium Carbonate (Calcium Carbonate 500 Mg Chew Tablet) 1,000 mg PO Q6H PRN PRN Reason: HEARTBURN Last Admin: 12/13/24 02:35 Dose: 1,000 mg Carvedilol (Carvedilol 6.25 Mg Tablet) 6.25 mg PO BID [facility] Last Admin: 12/13/24 18:37 Dose: 6.25 mg Clonidine HCl (Clonidine 0.1 Mg/24 Hr Patch) 1 patch TRANSDERMA Q7D [facility] Last Admin: 12/09/24 11:53 Dose: 1 patch Clopidogrel Bisulfate (Clopidogrel 75 Mg Tablet) 75 mg PO DAILY [facility] Last Admin: 12/13/24 09:31 Dose: 75 mg Divalproex Sodium (Divalproex Dr 500 Mg Tablet) 500 mg PO Q12H [facility] Last Admin: 12/13/24 09:31 Dose: 500 mg Ezetimibe (Ezetimibe 10 Mg Tablet) 10 mg PO DAILY [facility] Last Admin: 12/13/24 09:31 Dose: 10 mg Glucagon (Glucagon 1 Mg/Ml Kit 1 Ml) 1 mg IM ONCE PRN; Protocol PRN Reason: Adult Acute Hypoglycemia Nursing Prot. Guaifenesin (Guaifenesin 100 Mg/5 Ml Udc 10 Ml) 200 mg PO Q4H PRN PRN Reason: COUGH AND CONGESTION Last Admin: 12/09/24 08:31 Dose: 200 mg Heparin Sodium (Porcine) (Heparin 5,000 Unit/Ml Inj 1 Ml) 5,000 unit SUBCUT Q12H [facility] Last Admin: 12/13/24 09:31 Dose: 5,000 unit Hydralazine HCl (Hydralazine 20 Mg/Ml Inj 1 Ml) 10 mg IVP Q4H PRN PRN Reason: SBP More than 160 mmhg Hydralazine HCl (Hydralazine 50 Mg Tablet) 50 mg PO TID [facility] Last Admin: 12/13/24 16:28 Dose: Not Given Dextrose (D5w) 500 mls @ 0 mls/hr IV ONCE PRN; Protocol PRN Reason: Adult Acute Hypoglycemia Prot Dextrose (D10w) 125 mls @ 750 mls/hr IV PRN PRN; Protocol PRN Reason: Adult Acute Hypoglycemia Nursing Protocol Dextrose (D10w) 250 mls @ 1,000 mls/hr IV PRN PRN; Protocol PRN Reason: Adult Acute Hypoglycemia Nursing Protocol Sodium Bicarbonate 50 meq/ (Sodium Chloride) 1,050 mls @ 100 mls/hr IV .[id number] [facility] Stop: 12/13/24 19:29 Last Admin: 12/13/24 13:50 Dose: 100 mls/hr Insulin Human Lispro (Insulin Lispro 100 Unit/1 Ml) 0 unit SUBCUT WM&BEDTIME [facility]; Protocol Last Admin: 12/13/24 18:08 Dose: Not Given Insulin Human Lispro (Insulin Lispro 100 Unit/1 Ml) 5 unit SUBCUT AC [facility] Last Admin: 12/13/24 18:08 Dose: Not Given Ipratropium [place] (Ipratropium 0.5 Mg/2.5 Ml Neb) 0.5 mg INHALATION Q4H.RESPIRATORY PRN PRN Reason: SHORTNESS OF BREATH Isosorbide Mononitrate (Isosorbide Mononitrate 20 Mg Tablet) 20 mg PO BID [facility] Last Admin: 12/13/24 18:37 Dose: 20 mg Levalbuterol HCl (Levalbuterol 0.63 Mg/3 Ml Neb) 0.63 mg INHALATION Q4H.RESPIRATORY PRN PRN Reason: SHORTNESS OF BREATH Nicotine (Nicotine 14 Mg Patch) 1 patch TRANSDERMA DAILY [facility] Last Admin: 12/13/24 09:32 Dose: 1 patch Ondansetron HCl (Ondansetron 2 Mg/Ml Sdv 2 Ml) 4 mg IVP Q6H PRN PRN Reason: NAUSEA AND VOMITING Last Admin: 12/09/24 09:59 Dose: 4 mg Ondansetron HCl (Ondansetron 2 Mg/Ml Sdv 2 Ml) 4 mg IVP Q2M PRN PRN Reason: NAUSEA Oseltamivir Phosphate (Oseltamivir Phosphate 30 Mg Capsule) 30 mg PO DAILY [facility] Last Admin: 12/13/24 09:31 Dose: 30 mg Pantoprazole Sodium (Pantoprazole Dr 40 Mg Tablet) 40 mg PO DAILY [facility] Last Admin: 12/13/24 09:31 Dose: 40 mg Prednisone (Prednisone 20 Mg Tablet) 60 mg PO DAILY [facility] Sevelamer Carbonate (Sevelamer 800 Mg Tablet) 1,600 mg PO TID [facility] Last Admin: 12/13/24 16:28 Dose: Not Given Sodium Bicarbonate (Sodium Bicarbonate 650 Mg Tablet) 650 mg PO TID [facility] Last Admin: 12/12/24 21:20 Dose: 650 mg Discontinued Medications Albuterol/Ipratropium (Ipratropium-Albuterol 3 Ml Neb) 3 ml INHALATION Q6H.RESP [facility] Last Admin: 12/09/24 09:00 Dose: 3 ml Alprazolam (Alprazolam 0.5 Mg Tablet) 0.5 mg PO TID PRN PRN Reason: ANXIETY Last Admin: 12/09/24 12:09 Dose: 0.5 mg Aminophylline (Aminophylline 25 Mg/Ml Sdv 20 Ml) 25 mg IVP Q2M PRN PRN Reason: see dose instructions Stop: 12/11/24 06:19 Aspirin (Aspirin 81 Mg Chew Tablet) 324 mg PO NOW ONE Stop: 12/07/24 20:02 Last Admin: 12/07/24 21:22 Dose: 324 mg Aspirin (Aspirin 81 Mg Ec Tablet) 81 mg PO DAILY [facility] Last Admin: 12/13/24 07:49 Dose: Not Given Clonidine HCl (Clonidine 0.1 Mg Tablet) 0.1 mg PO DAILY PRN PRN Reason: hypertensive emergency Clopidogrel Bisulfate (Clopidogrel 300 Mg Tablet) 600 mg PO ONCE ONE Stop: 12/07/24 20:02 Last Admin: 12/07/24 21:21 Dose: 600 mg Clopidogrel Bisulfate (Clopidogrel 300 Mg Tablet) 300 mg PO ONCE ONE Stop: 12/07/24 21:43 Last Admin: 12/07/24 22:32 Dose: 300 mg Doxycycline Monohydrate (Doxycycline 100 Mg Tablet) 100 mg PO BID [facility]; Protocol Last Admin: 12/09/24 09:48 Dose: 100 mg Epoetin Yoav (Epoetin Yoav 20,000 Unit/Ml Mdv (Esrd)) 20,000 unit SUBCUT NOW ONE Stop: 12/09/24 11:23 Last Admin: 12/09/24 11:52 Dose: 20,000 unit Epoetin Yoav-epbx (Epoetin Yoav-Epbx 10,000 Unit/Ml Sdv (Esrd)) 10,000 unit SUBCUT NOW ONE Stop: 12/10/24 10:31 Last Admin: 12/10/24 11:15 Dose: 10,000 unit Furosemide (Furosemide 10 Mg/Ml Sdv 10ml) 60 mg IVP ONCE ONE Stop: 12/07/24 15:53 Last Admin: 12/07/24 16:04 Dose: 60 mg Furosemide (Furosemide 10 Mg/Ml Sdv 4ml) 40 mg IVP Q12H [facility] Last Admin: 12/09/24 01:18 Dose: 40 mg Furosemide (Furosemide 10 Mg/Ml Sdv 2ml) 20 mg IVP Q24H [facility] Heparin Sodium (Porcine) (Heparin 5,000 Unit/Ml Inj 1 Ml) 0 unit IVP PRN PRN; Protocol PRN Reason: Heparin Weight Based Protocol -Subsequent Bolus Last Admin: 12/08/24 20:03 Dose: 1,500 unit Heparin Sodium (Porcine) (Heparin 5,000 Unit/Ml Inj 1 Ml) 0 unit IVP ONCE ONE; Protocol Stop: 12/07/24 20:02 Last Admin: 12/07/24 21:58 Dose: 3,700 unit Hydralazine HCl (Hydralazine 20 Mg/Ml Inj 1 Ml) 20 mg IVP ONCE ONE Stop: 12/07/24 15:58 Last Admin: 12/07/24 16:03 Dose: 20 mg Hydralazine HCl (Hydralazine 10 Mg Tablet) 10 mg PO TID PRN PRN Reason: Anxiety Hydralazine HCl (Hydralazine 10 Mg Tablet) 10 mg PO TID EVELIO Last Admin: 12/08/24 08:16 Dose: 10 mg Hydralazine HCl (Hydralazine 10 Mg Tablet) 50 mg PO TID EVELIO Last Admin: 12/10/24 08:59 Dose: 50 mg Hydrochlorothiazide (Hydrochlorothiazide 25 Mg Tablet) 25 mg PO DAILY [facility] Piperacillin Sod/Tazobactam (Sod 3.375 gm/ Sodium Chloride) 50 mls @ 100 mls/hr IV ONCE ONE; Protocol Stop: 12/07/24 19:19 Last Infusion: 12/07/24 23:17 Dose: Infused Heparin Sodium/Sodium Chloride (Heparin Drip) 25,000 unit in 500 mls @ 0 mls/hr IV CONT EVELIO; Protocol Last Titration: 12/10/24 06:00 Dose: 0 unit/kg/hr, 0 mls/hr Ceftriaxone Sodium 1,000 mg/ (Sodium Chloride) 50 mls @ 100 mls/hr IV DAILY EVELIO; Protocol Last Infusion: 12/09/24 10:55 Dose: Infused Sodium Chloride (Sodium Chloride 0.9%) 1,000 mls @ 75 mls/hr IV .[id number] EVELIO Stop: 12/09/24 21:19 Last Infusion: 12/09/24 23:30 Dose: Infused Sterile Water (Water) Confirm Administered Dose 10 mls @ as directed .ROUTE .STK-MED ONE Stop: 12/09/24 16:52 Last Infusion: 12/09/24 17:35 Dose: Infused Methylprednisolone Sodium Succinate 500 mg/ Sodium Chloride 258 mls @ 258 mls/hr IV DAILY EVELIO Stop: 12/13/24 09:59 Last Infusion: 12/13/24 14:15 Dose: Infused Ipratropium [place] (Ipratropium 0.5 Mg/2.5 Ml Neb) 0.5 mg INHALATION Q6H.RESP EVELIO Last Admin: 12/09/24 14:50 Dose: 0.5 mg Ipratropium [place] (Ipratropium 0.5 Mg/2.5 Ml Neb) 0.5 mg INHALATION Q4H.RESPIRATORY EVELIO Last Admin: 12/13/24 07:27 Dose: 0.5 mg Labetalol HCl (Labetalol 5 Mg/Ml Sdv 20ml) 10 mg IVP ONCE ONE Stop: 12/07/24 15:57 Last Admin: 12/07/24 16:03 Dose: 10 mg Levalbuterol HCl (Levalbuterol 0.63 Mg/3 Ml Neb) 0.63 mg INHALATION Q6H.RESP EVELIO Last Admin: 12/09/24 14:50 Dose: 0.63 mg Levalbuterol HCl (Levalbuterol 0.63 Mg/3 Ml Neb) 0.63 mg INHALATION Q4H.RESPIRATORY EVELIO Last Admin: 12/13/24 07:27 Dose: 0.63 mg Meropenem (Meropenem 1,000 Mg Sdv) 1,000 mg IVP Q24H EVELIO; Protocol Last Admin: 12/10/24 15:33 Dose: 1,000 mg Methylprednisolone Sodium Succinate (Methylprednisolone Sod Succ 40 Mg/Ml Inj) 40 mg IVP Q8H EVELIO Last Admin: 12/10/24 08:57 Dose: 40 mg Methylprednisolone Sodium Succinate (Methylprednisolone Sod Succ 40 Mg/Ml Inj) 40 mg IVP Q12H EVELIO Last Admin: 12/10/24 21:05 Dose: 40 mg Metolazone (Metolazone 5 Mg Tablet) 5 mg PO ONCE ONE Stop: 12/08/24 12:10 Last Admin: 12/08/24 12:44 Dose: 5 mg Metoprolol Succinate (Metoprolol Succinate Er (24 Hr) 25 Mg Tablet) 25 mg PO DAILY EVELIO Last Admin: 12/08/24 08:15 Dose: 25 mg Nitroglycerin (Nitroglycerin 0.4 Mg Sublingual Tablet) 0.4 mg SUBLINGUAL Q5M PRN PRN Reason: CHEST PAIN Stop: 12/11/24 06:19 Potassium Chloride (Potassium Chloride Er 20 Meq Tablet) 40 meq PO ONCE ONE Stop: 12/13/24 09:26 Last Admin: 12/13/24 12:27 Dose: 40 meq Regadenoson (Regadenoson 0.4 Mg/5 Ml Syringe) 0.4 mg IVP ONCE PRN PRN Reason: Lexiscan Stress Test Last Admin: 12/10/24 07:26 Dose: 0.4 mg Sodium Chloride (Sodium Chloride 0.9% 100 Ml Bag) 50 ml IV PRN PRN PRN Reason: Blood transfusion prime and flush Stop: 12/11/24 09:18 Allergies No Known Allergies Allergy (Verified 12/06/24 13:24) Home Medications diabetic shoes w/ 3 inserts #1 ea 09/06/24 [Rx Confirmed 12/07/24] metformin 1,000 mg tablet 500 mg (1/2 x 1,000 mg) PO BID #30 tabs 09/12/24 [Rx Confirmed 12/07/24] aspirin 81 mg tablet,delayed release 81 mg PO DAILY #90 tabs 10/06/24 [Rx Confirmed 12/07/24] clonidine HCl 0.1 mg tablet 0.1 mg PO DAILY PRN hypertensive emergency #7 tabs 11/26/24 [Rx Confirmed 12/07/24] divalproex 250 mg tablet,delayed release (Depakote) 250 mg PO .7 pm #30 tabs 11/26/24 [Rx Confirmed 12/07/24] hydrochlorothiazide 25 mg tablet 25 mg PO DAILY 11/30/24 [History Confirmed 12/07/24] amlodipine 10 mg tablet 10 mg PO DAILY #90 tabs 12/06/24 [Rx Confirmed 12/07/24] ezetimibe 10 mg tablet 10 mg PO DAILY #90 tabs 12/06/24 [Rx Confirmed 12/07/24] pantoprazole 40 mg tablet,delayed release 40 mg PO DAILY 12/06/24 [History Confirmed 12/07/24] bupropion HCl 150 mg 24 hr tablet, extended release 150 mg PO DAILY 12/07/24 [History Confirmed 12/07/24] hydralazine 10 mg tablet 10 mg PO TID PRN Anxiety 12/07/24 [History Confirmed 12/07/24] metoprolol succinate 50 mg tablet,extended release 24 hr 25 mg PO DAILY 12/07/24 [History Confirmed 12/07/24] Discharge Plan Discharge Patient Disposition: Home Health Service Condition: Stable Prescriptions: No Action (DME) diabetic shoes w/ 3 inserts See Rx Instructions .Route .MEDSUPPLY Qty: 1 0RF Rx Instructions: As directed by HOME w/Right toe filler pantoprazole 40 mg tablet,delayed release (DR/EC) 40 mg PO DAILY ezetimibe 10 mg tablet 10 mg PO DAILY Qty: 90 1RF amlodipine 10 mg tablet 10 mg PO DAILY Qty: 90 1RF hydrochlorothiazide 25 mg tablet 25 mg PO DAILY divalproex [Depakote] 250 mg tablet,delayed release (DR/EC) 250 mg PO .7 pm Qty: 30 2RF clonidine HCl 0.1 mg tablet 0.1 mg PO DAILY PRN (Reason: hypertensive emergency) Qty: 7 1RF Rx Instructions: May take one tablet daily as needed for blood pressure systolic 160 or over aspirin 81 mg Tablet,Delayed Release (Dr/Ec) 81 mg PO DAILY Qty: 90 0RF metformin 1,000 mg tablet 500 mg PO BID Qty: 30 0RF metoprolol succinate 50 mg tablet extended release 24 hr 25 mg PO DAILY bupropion HCl 150 mg tablet extended release 24 hr 150 mg PO DAILY hydralazine 10 mg tablet 10 mg PO TID PRN (Reason: Anxiety) Discharge Orders: Discharge Order (Routine); Ordered 12/13/24 Ordered By: Jere Loza Referrals: [facility] [Outside] Pierce Justice MD [Primary Care Provider] - Patient Instructions: Opioid Safety Transfer Attestations Time Spent in Transfer Care: greater than 30 min Status at Transfer: Cognitive status at transfer: cognitively intact; Behavioral status at transfer: cooperative; Quality Metrics Clinical Quality Measures [ No reported AMI, CVA or VTE this stay] Coding Level of Care Code Acute Code for Chg Fwd Diagnoses HALIE (acute kidney injury) N17.9
[2024-12-13 20:43] LABS: Glucose Point of Care 289 mg/dL (70-110)
[2024-12-14 01:25] LABS: Immunofixation Serum Normal pattern.
[2024-12-14 14:10] LABS: ANCA Screen NEGATIVE (NEGATIVE)
[2024-12-14 14:30] LABS: Anti-Nuclear Antibody Screen NEGATIVE (NEGATIVE)
[2024-12-17 22:46] LABS: ABNORMAL PROTEIN BAND 1 0.1 g/dL (NONE DETECTED); ALBUMIN 3.5 g/dL (3.8-4.8); ALPHA 1 GLOBULIN 0.4 g/dL (0.2-0.3); ALPHA 2 GLOBULIN 1.1 g/dL (0.5-0.9); BETA 1 GLOBULIN 0.4 g/dL (0.4-0.6); BETA 2 GLOBULIN 0.4 g/dL (0.2-0.5); GAMMA GLOBULIN 0.7 g/dL (0.8-1.7)
== END 2024-12-13 21:55 | disposition short-term general hospital (02) | DRG 193 ==
LOC: ER 20:04 → ICU 20:18 → MEDSURG 12-11 17:33
PROVIDERS: Hospitalist; Internal Medicine Nephrology; Student in an Organized Health Care Education/Training Program; Admitting Provider Internal Medicine; Emergency Provider Family Medicine; PCP Family Medicine; Visit Provider Internal Medicine
DX: J18.9 Pneumonia, unspecified organism (principal); I21.4 Non-ST elevation (NSTEMI) myocardial infarction; N17.9 Acute kidney failure, unspecified; I13.2 Hypertensive heart and chronic kidney disease with heart failure and with stage 5 chronic kidney disease, or end stage renal disease; N18.5 Chronic kidney disease, stage 5; I50.30 Unspecified diastolic (congestive) heart failure; F31.81 Bipolar II disorder; E87.1 Hypo-osmolality and hyponatremia; J10.1 Influenza due to other identified influenza virus with other respiratory manifestations; E11.22 Type 2 diabetes mellitus with diabetic chronic kidney disease; E11.39 Type 2 diabetes mellitus with other diabetic ophthalmic complication; Z79.84 Long term (current) use of oral hypoglycemic drugs; H53.8 Other visual disturbances; E11.65 Type 2 diabetes mellitus with hyperglycemia; F43.10 Post-traumatic stress disorder, unspecified; F12.20 Cannabis dependence, uncomplicated; D63.1 Anemia in chronic kidney disease; M20.41 Other hammer toe(s) (acquired), right foot; L84 Corns and callosities; F17.210 Nicotine dependence, cigarettes, uncomplicated; Z79.82 Long term (current) use of aspirin; Z79.1 Long term (current) use of non-steroidal anti-inflammatories (NSAID)
CPT/HCPCS: 36415; 36416; 36430; 36600; 71045; 71250; 74176; 76770; 78452; 80048; 80051; 80053; 80306; 81001; 82009; 82044; 82310; 82330; 82436; 82550; 82570; 82728; 82746; 82805; 82962; 83010; 83036; 83520; 83540; 83550; 83605; 83615; 83690; 83735; 83880; 83883; 83970; 84100; 84133; 84145; 84155; 84156; 84165; 84300; 84484; 85025; 85045; 85378; 85730; 85999; 86036; 86038; 86140; 86160; 86225; 86235; 86334; 86705; 86706; 86709; 86803; 86850; 86900; 86920; 87040; 87070; 87205; 87340; 87486; 87581; 87633; 87637; 92610; 93005; 93017; 93306; 94640; 96365; 96367; 96372; 96374; 96375; 96376; 99285; 99291; A9500; J0360; J0696; J1644; J1815; J1940; J2185; J2405; J2543; J2785; J2919; J3490; J7030; J7050; J7614; J7626; J7644; P9040; Q3014; Q4081; Q5105

== ENCOUNTER 2024-12-15 20:09 | Emergency (ER) | payer MEDICARE, MEDICAID, SELFPAY ==
[2024-12-15 20:10] VITALS: BP 153/102; PULSE 105; RESP 18; TEMP 36.3; O2SAT 94; BMI 29.0
[2024-12-15 20:17] LABS: Glucose Point of Care 568 mg/dL (70-110)
[2024-12-15 20:24] LABS: Basophils % 0.4 %; Eosinophils # 0.1 10^3/uL (0.0-0.8); Eosinophils % 0.7 %; Hematocrit 36.4 % (37-53); Lymphocytes % 9.2 %; Mean Corpuscular HGB Conc 34.1 g/dL (30-55); Mean Corpuscular Hemoglobin 29.4 pg (27-33); Mean Corpuscular Volume 86.3 fl (82-101); Monocytes # 0.8 10^3/uL (0.2-0.9); Monocytes % 6.7 %; Neutrophils # 9.21 10^3/uL (1.8-7.7); Neutrophils % 81.1 %; Nucleated Red Blood Cells # 0.1 /100WBC; Nucleated Red Blood Cells % 0.4 %; Platelet Count 309 10^3/cmm (157-399); Red Blood Count 4.22 10^6/uL (3.85-5.65); Red Cell Distribution Width 13.3 % (12.1-15.1); White Blood Count 11.35 10^3/uL (3.29-11.43)
--- NOTE | 2024-12-15 20:24 | ED_ITS ---
HPI - Recheck/Abnormal Lab/Rx 2 General: Chief Complaint: Recheck/Abnormal Lab/Rx Stated Complaint: HIGH BLOOD SUGAR Time Seen by Provider: 12/15/24 20:12 History of Present Illness: Madelyn Baker is a 59-year-old man that presents to the emergency department from home. He presents with generalized weakness, high blood sugar. Patient was transferred from [facility] to [facility] for a renal biopsy 12/13/2024. Patient had been admitted on 12/07/2024 here with acute kidney injury, elevated troponin/non-STEMI. Patient was evaluated by nephrology here and it was recommended to transfer to [place] for the biopsy to determine if he would require dialysis. Patient appears to have signed out the patient was transferred back home per his request. Patient declined over the last 24 hours and arrives here in the emergency department with a blood sugar of 560, generalized weakness, and anxiety. Related Data Home Medications ?Medication ?Instructions ?Recorded ?Confirmed hydrochlorothiazide 25 mg tablet 25 mg PO DAILY 12/07/24 pantoprazole 40 mg tablet,delayed 40 mg PO DAILY 12/0612/07/24 release bupropion HCl 150 mg 24 hr tablet, 150 mg PO DAILY 05/2412/07/24 extended release hydralazine 10 mg tablet 10 mg PO TID PRN Anxiety 05/2412/07/24 metoprolol succinate 50 mg 25 mg PO DAILY 12/07/2405/24 tablet,extended release 24 hr Previous Rx's ?Medication ?Instructions ?Recorded diabetic shoes w/ 3 inserts #1 ea 09/06/24 metformin 1,000 mg tablet 500 mg (1/2 x 1,000 mg) PO B ID #[id number] 09/12/24 tabs aspirin 81 mg tablet,delayed 81 mg PO DAILY #90 tabs 1 12/07/23 release clonidine HCl 0.1 mg tablet 0.1 mg PO DAILY PRN hypert ensive 11/26/24 emergency #7 tabs divalproex 250 mg tablet,delayed 250 mg PO .7 pm #30 t abs 11/26/24 release (Depakote) amlodipine 10 mg tablet 10 mg PO DAILY #90 tabs 04/24 ezetimibe 10 mg tablet 10 mg PO DAILY #90 tabs 04/24 Allergies Allergy/AdvReac Type Severity Reaction Status Date / Time No Known Allergies Allergy Verified 12/15/24 20:10 Review of Systems 2 Const: Reports: chills; Denies: fever(s) Card: Denies: chest pain Resp: Reports: dyspnea GI: Reports: abdominal pain and nausea : Denies: dysuria, urinary frequency or urinary urgency Musc: Denies: neck pain or back pain Skin/Breast: Denies: rash PFSH ED 2 PFSH: Medical History (Updated 12/15/24 @ 23:18 by BLU Haro) Influenza Acute on chronic renal failure Acute hypoxemic respiratory failure Community acquired pneumonia HALIE (acute kidney injury) Non-STEMI (non-ST elevated myocardial infarction) Hyperglycemia Hammertoe of right foot Callus of heel Type 2 diabetes mellitus Blurred vision CKD (chronic kidney disease) stage V requiring chronic dialysis Nicotine dependence, cigarettes, uncomplicated Bereavement Mother in February 2024 Cannabis use disorder, moderate, dependence Chronic post-traumatic stress disorder Bipolar II disorder Impaired visual perception Psychiatric care Anemia 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 Social History Smoking and tobacco/nicotine status: current some day tobacco/nicotine user Alcohol intake: current Alcohol intake frequency: holidays/special occasions only Alcohol type: wine Physical Exam 2 Const: COMMON NORMALS: no acute distress, patient oriented x3 and alert G ENERAL APPEARANCE: cooperative ORIENTATION/CONSCIOUSNESS: Yes awake, Yes oriented to person, Yes oriented to place and Yes oriented to time Neck/C-Spine: COMMON NORMALS: full ROM GENERAL: Yes normal visual inspection Lymph: LYMPHATIC: no lymphadenopathy noted Chest: COMMONS NORMALS: normal inspection of the chest Breast/axilla inspection: Yes no chest deformity, asymmetry, normal contours, no nodules, masses, tenderness Resp: COMMON NORMALS: normal respiratory effort, No retractions, No use of accessory muscles and clear to auscultation bilaterally EFFORT & INSPECTION: Yes able to speak in complete sentences and Yes symmetric chest movement A USCULTATION: clear to auscultation bilaterally Cardio: COMMON NORMALS: regular rate, regular rhythm and Peripheral pulses 2+ throughout RATE: regular rate RHYTHM: regular rhythm PERIPHERAL PULSES: Peripheral pulses 2+ throughout GI: COMMON NORMALS: Normal to inspection, nondistended, normoactive bowel sounds present, Soft to palpation, non-tender and No hepatosplenomegaly present INSPECTION: Yes normal to inspection AUSCULTATION: Yes normoactive bowel sounds PALPATION: Yes Soft to palpation and Yes No hepatosplenomegaly present RECTAL EXAM: Yes deferred Extremity: COMMON NORMALS: normal to inspection GENERAL: Yes normal exam except as noted Neuro: COMMON NORMALS: patient oriented x3 SENSORIUM/ORIENTATION: Yes alert, Yes oriented to person, Yes oriented to place and Yes oriented to time CRANIAL NERVES: Yes CN normal except as noted Psych: COMMON NORMALS: mental status grossly normal, cooperative, speech normal, activity/motor behavior normal, denies homicidal ideation and denies suicidal ideation APPEARANCE: Yes grossly normal ATTITUDE: Yes agitated ACTIVITY/MOTOR BEHAVIOR: Yes disorganized behavior SPEECH: Yes normal speech MOOD & AFFECT: Yes depressed mood, Yes anxious, Yes sad, Yes tearful and Yes fearful THOUGHT PROCESS: disorganized THOUGHT CONTENT: Yes Normal thought content present, No Suicidality present and No Homicidality present A TTENTION/CONCENTRATION: Yes attention grossly intact and Yes concentration grossly intact MEMORY/COGNITION: Yes memory grossly intact INSIGHT: Fair insight present (Psych) JUDGEMENT: Fair judgement present (Psych) Skin: COMMON NORMALS: no rashes or lesions noted, no wounds and turgor normal GENERAL SKIN EXAM: no rashes or lesions noted and turgor normal Course 2 Vital Signs: Vital signs: Vital Signs Temperature 97.4 F L 12/15/24 20:10 Pulse Rate 100 12/15/24 23:01 Respiratory Rate 15 12/15/24 23:01 Blood Pressure 168/106 12/15/24 23:01 Pulse Oximetry 94 12/15/24 23:01 Oxygen Delivery Me thod Room Air 12/15/24 20:10 MDM - Recheck/Abnormal Lab/Rx Medical Decision Making Recent admission for: Flu A, Non-STEMI, Acute on chronic kidney disease (creat 6.8). Patient reported that he had a pulmonary embolism but it appears he had pulmonary infiltrates. Patient was evaluated here and it was deemed necessary to transfer him to [facility] for nephrology evaluation and biopsy. Patient seems to be a poor historian and is argumentative about his recent care and transfer. Patient believes that he was going to [facility] just for procedure and then being transferred back to inpatient setting here. When that did not happen since he is signed out AMA and was transferred to his home by a transport service. Patient now returns to our emergency department stating he cannot control his blood sugar, cannot control his blood pressure. He states that he has had increasing generalized weakness for the last 7 to 10 days. States he is unable to ambulate. He reports that he does not take any medications. He does have a primary care although he denies this. Per last note patient be on a number of medications for blood pressure control. It is unclear if he has been prescribed anything for his glucose. Patient does not feel that he is strong enough to be at home. He feels he is unable to ambulate within his home. We did recheck his laboratory studies today. His CBC reveals no leukocytosis or anemia His chemistry panel reveals a BUN of 126 and creatinine of 6.1. While this is high, it is not as high as it has been in the last week. His potassium is 4.2. He is hyperglycemic but he is not acidotic. We did obtain serum ketones as well as an ABG. His pH is 7.37. We have treated his glucose with insulin and have given him normal saline bolus to help with hydration. We rechecked his glucose and it was 411. I gave him another 10 units of insulin. Recheck of his glucose reveals a level of 300. We attempted to ambulate him but he refused. Patient has remained argumentative throughout his emergency room visit. He states he should have never been transferred and he should still be receiving treatment as an inpatient here. I did speak with Dr. Humphrey and Dr. Powell about patient's case. At this time there is no reason for admission. He does not need dialysis at this time, potassium is 4.2. He does not have a hypertensive crisis. He was hypertensive but we treated him with clonidine. We have corrected his glucose. He states he is unable to ambulate at this time; however, at this time he is only found is that he is unwilling to ambulate. He has been offered, and accepted, a wheelchair. DME orders have been placed. Patient is going to be discharged and has been instructed to follow-up with primary care, nephrology, and his nurse outreach case manager regarding his other benefits that he is getting through disability. Medical Records From the transfer document on 12/13/2024: Hospital Course 59-year-old male who was admitted for management evaluation of shortness of breath while he was shopping at the [facility], he was diagnosed with influenza A, he was requiring 3 L of oxygen, he was treated conservatively, during hospitalization he was treated for non-STEMI as well for increase of troponin, he finished 48 hours on heparin drip, cardiac stress test was done at the end because patient remained asymptomatic and echo did not show any wall motion abnormality, history of cardiac stress test did not show any coronary ischemic changes, his creatinine kept getting worse, nephrology was consulted who recommended addition of high-dose steroids which were added 12/11 500 mg methylprednisolone, nephrology has recommended renal biopsy and closer monitoring to see if patient would require dialysis, for now he is making urine up to 800 to 1200 mL/day. Nephrology also requested complement studies, c-ANCA, hepatitis panel, CRISTINA, results are pending. Patient was presented to [facility], patient was presented to [facility] nurse practitioner for nephrology who accepted the patient and then this was presented to hospitalist RN who accepted the patient as well, accepting physician will be Dr. Gabrielle Flynn note brief excerpt:- . Slow rise cr- January 2024- cr 1.1- 1.01 June 2024 cr 1.03 sep 2024- cr 2- 4 mg/dl, sep- dec 2024- cr 4-4.7. now w/ HALIE- cr up to 6.4 -h/o ANCA + 1:20 p ANCA in sep 2024 -await ANCA, SIFE Free light chain kappa: lambda ratio of 2.7 and no m-spike- unlikely myeloma or amyloid - normal complements, anti-dsDNA negative. await cristina, anti-gbm, he has increasing UACR - 4783, UPCR 6.7 he had an ANCA of 1:20 + in past full anemia eval- however, cr rise has been in steps -we stopped magdalena-i in Sep 2024 -given rapid rise in cr, low +ANCA, though no hematuria. would recommend renal biopsy to see if he has a reversible disease -we started solumedrol 500 mg iv yesterday, as he has high glucose, will not increase his dose -recommedn transfer for a renal biopsy. 3. high anion gap metabolic acidosis, normal ph 7.43 Lab Data Hep Bs Antigen (Nonreactive) Non-reactive Hep Bs Antibody (11.5-1000) < 3.5?L?? Hep B Core Total Ab (Nonreactive) Non-reactive Hepatitis C Antibody (Nonreactive) Non-reactive He was diagnosed with Flu A CRISTINA negative 12/15/24 19:54 12/15/24 21:41 Laboratory Results WBC 11.35 10^3/uL (3.29-11.43) 12/15/24 19:54 RBC 4.22 10^6/uL (3.85-5.65) 12/15/24 19:54 Hgb 12.40 g/dL (11.27-16.99) 12/15/24 19:54 Hct 36.4 % (37-53) L 12/15/24 19:54 MCV 86.3 fl (82-101) 12/15/24 19:54 MCH 29.4 pg (27-33) 12/15/24 19:54 MCHC 34.1 g/dL (30-55) 12/15/24 19:54 RDW 13.3 % (12.1-15.1) 12/15/24 19:54 Plt Count 309 10^3/cmm (157-399) 12/15/24 19:54 MPV 11.0 fL (7.4-10.4) H 12/15/24 19:54 Neut % (Auto) 81.1 % 12/15/24 19:54 Lymph % (Auto) 9.2 % 12/15/24 19:54 [place] % (Auto) 6.7 % 12/15/24 19:54 Eos % (Auto) 0.7 % 12/15/24 19:54 Baso % (Auto) 0.4 % 12/15/24 19:54 Neut # (Auto) 9.21 10^3/uL (1.8-7.7) H 12/15/24 19:54 Lymph # (Auto) 1.0 10^3/uL (0.8-4.8) 12/15/24 19:54 [place] # (Auto) 0.8 10^3/uL (0.2-0.9) 12/15/24 19:54 Eos # (Auto) 0.1 10^3/uL (0.0-0.8) 12/15/24 19:54 Baso # (Auto) 0.0 10^3/uL (0.0-0.1) 12/15/24 19:54 Nucleated RBC % (auto) 0.4 % 12/15/24 19: Nucleated RBCs # 0.1 /100WBC 12/15/24 19:54 Specimen Type Arterial 12/15/24 20:35 Sample Site Brachial, right 12/15/24 20:35 ABG pH 7.37 (7.35-7.45) 12/15/24 20:35 ABG pCO2 35.9 mmHg (35-45) 12/15/24 20:35 ABG pO2 72.4 mmHg (80.0-100.0) L 12/15/24 20:35 ABG PO2/FiO2 Ratio 344 12/15/24 20:35 ABG HCO3 20.6 mmol/L (22-26) L 12/15/24 20:35 ABG Base Excess -4.2 mmol/L (-2.0-2.0) L 12/15/24 20:35 Dl Test Pos 12/15/24 20:35 Hematocrit 35.7 % (42-52) L 12/15/24 20:35 Hgb O2 Saturation 91.9 % (95-100) L 12/15/24 20:35 Carboxyhemoglobin 0.5 %THgb (0.4-20.1) 12/15/24 20:35 Methemoglobin 0.5 % (0.4-1.5) 12/15/24 20:35 Total Hemoglobin 11.6 g/dL (14-18) L 12/15/24 20:35 O2 Delivery Device Room air 12/15/24 20:35 FiO2 21.0 % 12/15/24 20:35 Editorial Director ID Monro 12/15/24 20:35 Sodium 132 mmol/L (136-145) L 12/15/24 19:54 Potassium 4.1 mmol/L (3.5-5.1) 12/15/24 19:54 Chloride 92 mmol/L (98-107) L 12/15/24 19:54 Carbon Dioxide 19 mmol/L (22-29) L 12/15/24 19:54 Anion Gap 25.1 (5-19) H 12/15/24 19:54 BUN 126 mg/dL (6-20) H* 12/15/24 19:54 Creatinine 6.1 mg/dL (0.7-1.2) H* 12/15/24 19:54 GFR Calculation 9.6 mL/min (90-130) L 12/15/24 19:54 Glucose 418 mg/dL (65-115) H 12/15/24 21:41 POC Glucose 301 mg/dL (70-110) H 12/15/24 22:36 Calculated Osmolality 341 mOsm/kg (285-295) H 12/15/24 19:54 Lactic Acid 2.4 mmol/L (0.5-2.2) H 12/15/24 19:54 Calcium 7.5 mg/dL (8.5-10.5) L 12/15/24 19:54 Total Bilirubin 0.2 mg/dL (0.15-1.2) 12/15/24 19:54 AST 25 U/L (0-40) 12/15/24 19:54 ALT 19 U/L (0-41) 12/15/24 19:54 Alkaline Phosphatase 76 U/L (40-130) 12/15/24 19:54 Total Protein 6.1 g/dL (6.6-8.7) L 12/15/24 19:54 Albumin 3.3 g/dL (3.5-5.2) L 12/15/24 19:54 Globulin 2.8 g/dL (1.3-4.6) 12/15/24 19:54 Lipase 49 U/L (13-60) 12/15/24 19:54 Urine Color Yellow (Yellow) 12/15/24 21:11 Urine Appearance Clear (CLEAR) 12/15/24 21:11 Urine pH 5.5 (5-7) 12/15/24 21:11 Ur Specific [place] 1.018 (1.005-1.030) 12/15/24 21:11 Urine Protein 4+ (Negative) A 12/15/24 21:11 Urine Glucose (UA) 3+ (Normal) H 12/15/24 21:11 Urine Ketones Negative (Negative) 12/15/24 21:11 Urine Blood Trace (Negative) A 12/15/24 21:11 Urine Nitrate Negative (Negative) 12/15/24 21:11 Urine Bilirubin Negative (Negative) 12/15/24 21:11 Urine Urobilinogen 0.2 mg/dL (Negative) 12/15/24 21:11 Ur Leukocyte Esterase Negative (Negative) 12/15/24 21:11 Urine RBC 0-2 /hpf (0-2) 12/15/24 21:11 Urine WBC 0-5 /hpf (0-5) 12/15/24 21:11 Ur Squamous Epith Cells 0-5 /hpf (0-5) 12/15/24 21:11 Amorphous Sediment Not Reportable 12/15/24 21:11 Urine Bacteria None seen /hpf (NONE) 12/15/24 21:11 Hyaline Casts 3.71 /lpf 12/15/24 21:11 Serum Ketones Negative (Negative) 12/15/24 19:54 All radiology interpretation(s) finalized by discharge Discharge Plan Discharge Patient Disposition: Home Clinical Impression: Acute hyperglycemia, Hypertension, Renal failure Condition: Stable Prescriptions: No Action (DME) diabetic shoes w/ 3 inserts See Rx Instructions .Route .MEDSUPPLY Qty: 1 0RF Rx Instructions: As directed by HOME w/Right toe filler pantoprazole 40 mg tablet,delayed release (DR/EC) 40 mg PO DAILY ezetimibe 10 mg tablet 10 mg PO DAILY Qty: 90 1RF amlodipine 10 mg tablet 10 mg PO DAILY Qty: 90 1RF hydrochlorothiazide 25 mg tablet 25 mg PO DAILY divalproex [Depakote] 250 mg tablet,delayed release (DR/EC) 250 mg PO .7 pm Qty: 30 2RF clonidine HCl 0.1 mg tablet 0.1 mg PO DAILY PRN (Reason: hypertensive emergency) Qty: 7 1RF Rx Instructions: May take one tablet daily as needed for blood pressure systolic 160 or over aspirin 81 mg Tablet,Delayed Release (Dr/Ec) 81 mg PO DAILY Qty: 90 0RF metformin 1,000 mg tablet 500 mg PO BID Qty: 30 0RF metoprolol succinate 50 mg tablet extended release 24 hr 25 mg PO DAILY bupropion HCl 150 mg tablet extended release 24 hr 150 mg PO DAILY hydralazine 10 mg tablet 10 mg PO TID PRN (Reason: Anxiety) Discharge Orders: Discharge ED (Routine); Ordered 12/15/24 Ordered By: Coby Cabrera Other Ambulatory Orders: DME: Wheelchair (Order) Location: None Selected Ordered By: Coby Cabrera Referrals: Pierce Justice MD [Primary Care Provider] - Discharge Diet: Advance as tolerated Discharge Activity: Resume usual activity Patient Instructions: Pain Management, Diabetes and Exercise (ED), Diabetic Hyperglycemia (ED), Chronic Hypertension (DC), Chronic Kidney Disease (ED) Activity Restrictions/Additional Instructions: You need to set up follow-up with nephrology at [facility] Please call Tuesday to get an appointment Please call your primary care office Tuesday for follow-up appointment. Please call your social services specialist Tuesday to get assistance with services that you need. Please return to the emergency department for new, concerning, worsening symptoms Print Language: Czech Coding Level of Care Code ED Gamb Cutter for Sandro Foster
[2024-12-15 20:31] LABS: Ketone (Acetest) Serum Negative (Negative)
[2024-12-15] MEDS: insulin regular-human 100 units/1 mL 12 UNIT IVP (20:35)
[2024-12-15] MEDS: sodium chloride 0.9% 1,000 ML 999 ML IV (20:36)
[2024-12-15] MEDS: ondansetron 2 mg/ML SDV 2 mL 4 MG IVP (20:36)
[2024-12-15 20:37] LABS: Slide Review Slide Review Perform
--- NOTE | 2024-12-15 20:37 | ECG_ITS ---
[facility]: 2024-12-15 Pat Name: Joseph Baker Department: Room: Gender: Male Service Establishment Attendant: : 1965 Requested By: Coby Love Order Number: [id number] Miles MD: Spike Armstrong M.D. Measurements Intervals [place] Rate: 106 P: 126 TN: 155 QRS: 152 QRSD: 68 T: 161 QT: 343 QTc: 455 Interpretive Statements SINUS TACHYCARDIA ARM LEADS REVERSED [INVERTED P AND QRS IN I] ABNORMAL RHYTHM ECG Compared to ECG 12/07/2024 21:42:46 Sinus rhythm no longer present T-wave abnormality no longer present Electronically Signed On 12-16-2024 18:49:34 CRM DEVELOPER by Spike Armstrong M.D. [email or web address]
[2024-12-15 20:47] LABS: ABG PCO2 35.9 mmHg (35-45); ABG PH Result 7.37 (7.35-7.45); Arterial Blood Gas Hematocrit 35.7 % (42-52); Base Excess ABG -4.2 mmol/L (-2.0-2.0); Blood Gas Allen Test Pos; Blood Gas Sample Type Arterial; Carboxyhemoglobin 0.5 %THgb (0.4-20.1); HCO3 ABG 20.6 mmol/L (22-26); HGB O2 Sat 91.9 % (95-100); Methemoglobin 0.5 % (0.4-1.5); PO2 ABG 72.4 mmHg (80.0-100.0); Total Hemoglobin 11.6 g/dL (14-18)
[2024-12-15 20:48] LABS: Lactic Sepsis W/Reflex 2.4 mmol/L (0.5-2.2)
[2024-12-15 20:48] LABS: Blood Gas Operator Identificat MONRO; Blood Gas Sample Site Brachial, right; Oxygen Device ROOM AIR; PO2 FiO2 Ratio Arterial Blood 344
[2024-12-15 20:49] LABS: Lipase 49 U/L (13-60)
[2024-12-15 20:50] LABS: Alanine Aminotransferase 19 U/L (0-41); Albumin Level 3.3 g/dL (3.5-5.2); Alkaline Phosphatase 76 U/L (40-130); Anion Gap 25.1 (5-19); Aspartate Amino Transferase 25 U/L (0-40); Calcium 7.5 mg/dL (8.5-10.5); Carbon Dioxide 19 mmol/L (22-29); Chloride 92 mmol/L (98-107); Globulin 2.8 g/dL (1.3-4.6); Glomerular Filtration Rate 9.6 mL/min (90-130); Potassium 4.1 mmol/L (3.5-5.1); Sodium 132 mmol/L (136-145); Total Bilirubin 0.2 mg/dL (0.15-1.2); Total Protein 6.1 g/dL (6.6-8.7)
[2024-12-15 20:59] LABS: Blood Urea Nitrogen 126 mg/dL (6-20); Glucose 577 mg/dL (65-115); Osmolality Calculated 341 mOsm/kg (285-295)
[2024-12-15 21:15] VITALS: BP 169/113; PULSE 107; RESP 19; O2SAT 95
[2024-12-15 21:40] LABS: Glucose Point of Care 411 mg/dL (70-110)
[2024-12-15] MEDS: insulin regular-human 100 units/1 mL 10 UNIT IVP (21:49)
[2024-12-15 21:52] LABS: Bilirubin Urine Negative (Negative); Blood Urine Trace (Negative); Glucose Urine UA 3+ (Normal); Ketones Urine Negative (Negative); Leukocyte Esterase Urine Negative (Negative); Nitrate Urine Negative (Negative); Protein Urine 4+ (Negative); Specific Gravity, Urine 1.018 (1.005-1.030); Urine Appearance Clear (CLEAR); Urine Color Yellow (Yellow); Urobilinogen Urine 0.2 mg/dL (Negative); pH Urine 5.5 (5-7)
[2024-12-15 21:58] LABS: Add Urine Microscopic? YES; Bacteria Urine None Seen /hpf; Hyaline Casts Urine 3.71 /lpf; RBC Urine 0-2 /hpf (0-2); Squamous Epithelial Cell Urine 0-5 /hpf (0-5); WBC Urine 0-5 /hpf (0-5)
[2024-12-15 22:00] VITALS: BP 165/107; PULSE 101; RESP 15; O2SAT 94
[2024-12-15 22:06] LABS: Glucose 418 mg/dL (65-115)
[2024-12-15 22:14] LABS: Reflex Lactate Order REFLEX LACTIC ORDERD
[2024-12-15 22:30] VITALS: BP 185/111; PULSE 102; RESP 12; O2SAT 94
[2024-12-15 22:38] LABS: Glucose Point of Care 301 mg/dL (70-110)
[2024-12-15 23:01] VITALS: BP 168/106; PULSE 100; RESP 15; O2SAT 94
[2024-12-15 23:15] VITALS: BP 154/105; PULSE 96; RESP 12; O2SAT 95
[2024-12-15] MEDS: cloNIDine 0.1 mg Tablet PO (23:15)
[2024-12-15 23:42] LABS: Lactic Acid level (Lactate) 3.3 mmol/L (0.5-2.2)
[2024-12-16 00:10] VITALS: BP 130/101; PULSE 93; O2SAT 94
== END 2024-12-15 23:45 | disposition home or self-care (01) ==
PROVIDERS: Emergency Medicine; Emergency Provider Nurse Practitioner; PCP Family Medicine
DX: E11.65 Type 2 diabetes mellitus with hyperglycemia (principal); E11.22 Type 2 diabetes mellitus with diabetic chronic kidney disease; I12.0 Hypertensive chronic kidney disease with stage 5 chronic kidney disease or end stage renal disease; N18.5 Chronic kidney disease, stage 5; Z99.2 Dependence on renal dialysis; Z72.0 Tobacco use; Z79.84 Long term (current) use of oral hypoglycemic drugs; Z79.82 Long term (current) use of aspirin
CPT/HCPCS: 36415; 36416; 36600; 80053; 81001; 82009; 82805; 82947; 82962; 83605; 83690; 85025; 93005; 96374; 96375; 96376; 99284; J1815; J2405; J7030

== ENCOUNTER 2024-12-18 22:53 | Emergency (ER) | payer MEDICARE, MEDICAID, SELFPAY ==
[2024-12-18 22:54] VITALS: BP 175/110; PULSE 97; RESP 18; O2SAT 96; BMI 27.4
[2024-12-18 22:59] VITALS: BP 175/110; PULSE 97; O2SAT 96
--- NOTE | 2024-12-18 23:19 | W.ED.GIBLEED ---
HPI - GI Bleed General: Chief complaint: GI Bleed Stated complaint: blood in stool Time Seen by Provider: 12/18/24 23:00 Source: patient Mode of arrival: EMS Limitations: no limitations History of Present Illness: Patient is a 59-year-old male with past medical history of kidney disease stage V, not currently on dialysis, type 2 diabetes, and psychiatric care who was brought in by ambulance for reports of rectal bleeding. States he is unsure how long he has been bleeding as he is legally blind, and only really noticed after wiping tonight. States that a couple days ago he felt that he passed a golf ball sized clot and that he has been scared since. He becomes tearful multiple times during examination and reiterates that he is anxious and scared. Reviewing his past recent visits, on 12/07 was admitted to the hospital here for an acute kidney injury. Creatinine was noted to be trending up during that timeframe and eventually he was transferred to [facility] for renal biopsy on 12/13. Also during his admission here was being treated for an NSTEMI, pneumonia, and hypoxemic respiratory failure. During his stay he had an abdominal/pelvis CT performed that did not demonstrate any large mass or other concerning abdominal findings. He also had myocardial perfusion scan showing normal left ventricular ejection fraction and questionable ischemia in the right coronary artery, though this was not consistent. Currently at this time with his rectal bleeding, denies history of hemorrhoids. He states that there has been approximately 30 pound weight loss over unknown timeframe, only reference to this is when he states I have always been over 200 pounds. There is no fever, abdominal pain, weakness, hesitancy with urination or dysuria, hematuria, chest pain, shortness of breath, or any other symptoms to note at this time. He does arrive hypertensive 175/110, rest of his vitals within normal limits. Currently 96% SpO2 on room air. complaint: blood on toilet paper Onset (ago): unknown Pain Consistency: constant Severity: mild Relieving factors: none Exacerbating factors: none Associated symptoms: Denies abdominal pain, chills, fever(s), headache(s), nausea, rash or vomiting Related Data Home Medications ?Medication ?Instructions ?Recorded ?Confirmed hydrochlorothiazide 25 mg tablet 25 mg PO DAILY 11/30/24 12/07/24 pantoprazole 40 mg tablet,delayed 40 mg PO DAILY 12/06/24 12/07/24 release bupropion HCl 150 mg 24 hr tablet, 150 mg PO DAILY 12/07/24 12/07/24 extended release hydralazine 10 mg tablet 10 mg PO TID PRN Anxiety 12/07/24 12/07/24 metoprolol succinate 50 mg 25 mg PO DAILY 12/07/24 12/07/24 tablet,extended release 24 hr Previous Rx's ?Medication ?Instructions ?Recorded diabetic shoes w/ 3 inserts #1 ea 09/06/24 metformin 1,000 mg tablet 500 mg (1/2 x 1,000 mg) PO BID #30 09/12/24 tabs aspirin 81 mg tablet,delayed 81 mg PO DAILY #90 tabs 10/06/24 release clonidine HCl 0.1 mg tablet 0.1 mg PO DAILY PRN hypertensive 11/26/24 emergency #7 tabs divalproex 250 mg tablet,delayed 250 mg PO .7 pm #30 tabs 11/26/24 release (Depakote) amlodipine 10 mg tablet 10 mg PO DAILY #90 tabs 12/06/24 ezetimibe 10 mg tablet 10 mg PO DAILY #90 tabs 12/06/24 Allergies Allergy/AdvReac Type Severity Reaction Status Date / Time No Known Allergies Allergy Verified 12/18/24 23:00 Review of Systems General: Reports: 10 or more systems reviewed and unremarkable except in HPI and below Const: Denies: fever(s), chills, change in appetite, change in weight or diaphoresis ENMT: Denies: throat pain or hoarseness Card: Denies: chest pain, palpitations or lightheadedness Resp: Denies: dyspnea, productive cough or wheezing GI: Reports: hematochezia; Denies: abdominal pain, nausea, vomiting, diarrhea, constipation, bloating or change in stool character : Denies: flank pain, difficulty urinating, dysuria, urinary frequency or urinary urgency Musc: Denies: neck pain or back pain Skin/Breast: Denies: rash or new lesions Neuro: Denies: headache(s) or dizziness PFS ED PFSH: Medical History Influenza Acute on chronic renal failure Acute hypoxemic respiratory failure Community acquired pneumonia HALIE (acute kidney injury) Non-STEMI (non-ST elevated myocardial infarction) Hyperglycemia Hammertoe of right foot Callus of heel Type 2 diabetes mellitus Blurred vision CKD (chronic kidney disease) stage V requiring chronic dialysis Nicotine dependence, cigarettes, uncomplicated Bereavement Mother in February 2024 Cannabis use disorder, moderate, dependence Chronic post-traumatic stress disorder Bipolar II disorder Impaired visual perception Psychiatric care Anemia 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 Social History Smoking and tobacco/nicotine status: current some day tobacco/nicotine user Alcohol intake: current Alcohol intake frequency: holidays/special occasions only Alcohol type: wine Physical Exam Const: COMMON NORMALS: average body habitus, patient oriented x3, no limitations and alert GENERAL APPEARANCE: anxious ORIENTATION/CONSCIOUSNESS: Yes awake OTHER: Irritable, tearful at times as well HENMT: COMMON NORMALS: normocephalic, atraumatic, hearing grossly normal bilaterally, external ears normal, Normal external nose present, Normal nasal mucous membranes and turbinates present and moist oral mucous membranes HEAD & SCALP: normocephalic and atraumatic NOSE: Normal external nose present and Normal nasal mucous membranes and turbinates present EXTERNAL EAR: Yes external ears normal Eye: COMMON NORMALS: Equal, round and reactive pupils present, EOMs intact bilaterally and conjunctivae normal CONJUNCTIVA: Yes conjunctivae normal PUPIL: Yes Equal, round and reactive pupils present Neck/C-Spine: COMMON NORMALS: full ROM, supple, no meningeal signs and no JVD Resp: COMMON NORMALS: normal respiratory effort, No retractions, No use of accessory muscles and clear to auscultation bilaterally AUSCULTATION: clear to auscultation bilaterally, no crackles, no rales, no rhonchi and no wheezes Cardio: COMMON NORMALS: no JVD, regular rate, regular rhythm, S1 normal heart sound present, S2 normal heart sound present, No gallops present (Cardio), No clicks present (Cardio), No murmurs present (Cardio), No rub (Cardio) and Peripheral pulses 2+ throughout RATE: regular rate RHYTHM: regular rhythm HEART SOUNDS: S1 normal heart sound present and S2 normal heart sound present PERIPHERAL PULSES: Peripheral pulses 2+ throughout GI: COMMON NORMALS: Normal to inspection, nondistended, normoactive bowel sounds present, Soft to palpation, non-tender, No hepatosplenomegaly present and no masses INSPECTION: No Laceration(s) present (GI) AUSCULTATION: Yes normoactive bowel sounds PALPATION: Yes Soft to palpation, No Guarding due to palpation present (GI), No Rigid due to palpation and Yes No hepatosplenomegaly present RECTAL EXAM: Yes heme negative stool, Yes hemorrhoids (External), No Lesions present (GI), No Fistula present (GI) and No Laceration(s) present (GI) Extremity: COMMON NORMALS: normal to inspection and full ROM Neuro: COMMON NORMALS: patient oriented x3, moves all extremities, no focal motor deficits and no sensory deficits noted SENSORIUM/ORIENTATION: Yes alert MENINGEAL SIGNS: Yes no meningeal signs Psych: COMMON NORMALS: mental status grossly normal, cooperative and speech normal SPEECH: Yes normal speech Skin: COMMON NORMALS: no rashes or lesions noted GENERAL SKIN EXAM: no rashes or lesions noted Course Vital Signs: Vital signs: Vital Signs Pulse Rate 105 H 12/18/24 23:29 Respiratory Rate 13 12/18/24 23:29 Blood Pressure 175/110 12/18/24 23:29 Pulse Oximetry 96 12/18/24 23:29 Oxygen Delivery Me thod Room Air 12/18/24 23:29 MDM - GI Bleed Medical Decision Making As mentioned in HPI, patient has had multiple visits here recently, notably he left [place] from [facility] to come back here and be readmitted. Patient did admit this to me. His complaint today was rectal bleeding, bedside stool sample was guaiac negative and there was no obvious BRBPR. Patient became anxious and tearful multiple times on exam stating he was scared. However of note he had CT done a week ago that was unremarkable for any large mass, infectious process, or other potential etiologies for bleeding and I do not think repeating CT at this time is necessary. Multiple labs were obtained, his hemoglobin is stable unchanged from prior hemoglobins and I think that this is chronic anemia from his stage V chronic kidney disease not on dialysis. He was able to produce urine at bedside on request for urinalysis, and creatinine and BUN have significantly decreased from prior labs obtained just a few days ago. His blood glucos is elevated again, I suspect noncompliance and he is given 10 units of insulin at this time. Potassium also slightly lower than usual, given p.o. potassium here. However the rest of his labs are appearing either improved or unchanged from prior. Despite this spoke with Dr. Hanson, hospitalist and who took care of the patient here in the hospital recently, to discuss the patient's case. He agrees that his labs are either stable or improved from prior, and does not feel admission necessary at this time. Ultimately for the reported rectal bleeding despite lack of physical exam findings or recent CT/lab work, will refer to general surgery as he has never had a colonoscopy done. Aside from the insulin and potassium here, no other further medications warranted at this time but did encourage him to start taking some p.o. magnesium and calcium at home. Encouraged him to take the rest of his medications as prescribed and just telling him that his labs are not worsening he noted significant relief of anxiety from this. Informed him to await call from general surgery and general return precautions given in the meantime, to which she verbalized understanding. Briefly discussed this case here in the ED with Dr. Arreaga. Lab Data 12/18/24 23:07 12/18/24 23:07 Laboratory Results WBC 13.83 10^3/uL (3.29-11.43) H 12/18/24 23:07 RBC 3.71 10^6/uL (3.85-5.65) L 12/18/24 23:07 Hgb 10.90 g/dL (11.27-16.99) L 12/18/24 23:07 Hct 32.5 % (37-53) L 12/18/24 23:07 MCV 87.6 fl (82-101) 12/18/24 23:07 MCH 29.4 pg (27-33) 12/18/24 23:07 MCHC 33.5 g/dL (30-55) 12/18/24 23:07 RDW 13.6 % (12.1-15.1) 12/18/24 23:07 Plt Count 315 10^3/cmm (157-399) 12/18/24 23:07 MPV 10.1 fL (7.4-10.4) 12/18/24 23:07 Neut % (Auto) 81.5 % 12/18/24 23:07 Lymph % (Auto) 7.7 % 12/18/24 23:07 [place] % (Auto) 8.0 % 12/18/24 23:07 Eos % (Auto) 1.4 % 12/18/24 23:07 Baso % (Auto) 0.2 % 12/18/24 23:07 Neut # (Auto) 11.29 10^3/uL (1.8-7.7) H 12/18/24 23:07 Lymph # (Auto) 1.1 10^3/uL (0.8-4.8) 12/18/24 23:07 [place] # (Auto) 1.1 10^3/uL (0.2-0.9) H 12/18/24 23:07 Eos # (Auto) 0.2 10^3/uL (0.0-0.8) 12/18/24 23:07 Baso # (Auto) 0.0 10^3/uL (0.0-0.1) 12/18/24 23:07 Nucleated RBC % (auto) 0 % 12/18/24 23:07 Nucleated RBCs # 0.0 /100WBC 12/18/24 23:07 Sodium 134 mmol/L (136-145) L 12/18/24 23:07 Potassium 3.1 mmol/L (3.5-5.1) L 12/18/24 23:07 Chloride 93 mmol/L (98-107) L 12/18/24 23:07 Carbon Dioxide 23 mmol/L (22-29) 12/18/24 23:07 Anion Gap 21.1 (5-19) H 12/18/24 23:07 BUN 67 mg/dL (6-20) H 12/18/24 23:07 Creatinine 4.0 mg/dL (0.7-1.2) H 12/18/24 23:07 GFR Calculation 15.6 mL/min (90-130) L 12/18/24 23:07 Glucose 492 mg/dL (65-115) H 12/18/24 23:07 Calculated Osmolality 319 mOsm/kg (285-295) H 12/18/24 23:07 Lactic Acid 1.2 mmol/L (0.5-2.2) 12/18/24 23:07 Calcium 6.8 mg/dL (8.5-10.5) L 12/18/24 23:07 Magnesium 1.5 mg/dL (1.7-2.3) L 12/18/24 23:07 Total Bilirubin 0.3 mg/dL (0.15-1.2) 12/18/24 23:07 AST 26 U/L (0-40) 12/18/24 23:07 ALT 27 U/L (0-41) 12/18/24 23:07 Alkaline Phosphatase 86 U/L (40-130) 12/18/24 23:07 C-Reactive Protein 33.8 mg/L (0.0-4.9) H 12/18/24 23:07 Total Protein 6.6 g/dL (6.6-8.7) 12/18/24 23:07 Albumin 3.1 g/dL (3.5-5.2) L 12/18/24 23:07 Globulin 3.5 g/dL (1.3-4.6) 12/18/24 23:07 Lipase 27 U/L (13-60) 12/18/24 23:07 Urine Color Yellow (Yellow) 12/18/24 23:35 Urine Appearance Clear (CLEAR) 12/18/24 23:35 Urine pH 6.0 (5-7) 12/18/24 23:35 Ur Specific [place] 1.018 (1.005-1.030) 12/18/24 23:35 Urine Protein 3+ (Negative) A 12/18/24 23:35 Urine Glucose (UA) 3+ (Normal) H 12/18/24 23:35 Urine Ketones Negative (Negative) 12/18/24 23:35 Urine Blood 1+ (Negative) A 12/18/24 23:35 Urine Nitrate Negative (Negative) 12/18/24 23:35 Urine Bilirubin Negative (Negative) 12/18/24 23:35 Urine Urobilinogen 0.2 mg/dL (Negative) 12/18/24 23:35 Ur Leukocyte Esterase Negative (Negative) 12/18/24 23:35 Amorphous Sediment Not Reportable 12/18/24 23:35 No radiology studies performed this visit Discharge Plan Discharge Patient Disposition: Home Clinical Impression: Hematochezia, Anxiety Chronic kidney disease (CKD) Qualifiers: Chronic kidney disease stage: stage 5 (GFR < 15), not on chronic dialysis Qualified Code(s): N18.5 - Chronic kidney disease, stage 5 Type 2 diabetes mellitus Qualifiers: Diabetes mellitus retirement insulin use: with ocean transportation intermediary use Diabetes mellitus complication status: without complication Qualified Code(s): E11.9 - Type 2 diabetes mellitus without complications Condition: Stable Prescriptions: No Action (DME) diabetic shoes w/ 3 inserts See Rx Instructions .Route .MEDSUPPLY Qty: 1 0RF Rx Instructions: As directed by HOME w/Right toe filler pantoprazole 40 mg tablet,delayed release (DR/EC) 40 mg PO DAILY ezetimibe 10 mg tablet 10 mg PO DAILY Qty: 90 1RF amlodipine 10 mg tablet 10 mg PO DAILY Qty: 90 1RF hydrochlorothiazide 25 mg tablet 25 mg PO DAILY divalproex [Depakote] 250 mg tablet,delayed release (DR/EC) 250 mg PO .7 pm Qty: 30 2RF clonidine HCl 0.1 mg tablet 0.1 mg PO DAILY PRN (Reason: hypertensive emergency) Qty: 7 1RF Rx Instructions: May take one tablet daily as needed for blood pressure systolic 160 or over aspirin 81 mg Tablet,Delayed Release (Dr/Ec) 81 mg PO DAILY Qty: 90 0RF metformin 1,000 mg tablet 500 mg PO BID Qty: 30 0RF metoprolol succinate 50 mg tablet extended release 24 hr 25 mg PO DAILY bupropion HCl 150 mg tablet extended release 24 hr 150 mg PO DAILY hydralazine 10 mg tablet 10 mg PO TID PRN (Reason: Anxiety) Discharge Orders: Discharge ED (Routine); Ordered 12/18/24 Ordered By: Jamil Rivero Referrals: Pierce Justice MD [Primary Care Provider] - Patient Instructions: Rectal Bleeding (ED), Chronic Kidney Disease (ED), Diabetic Kidney Disease (ED) Activity Restrictions/Additional Instructions: Take calcium and magnesium supplements [id number]. Continue taking your home medications. Follow-up with general surgery as we have arranged for colonoscopy to evaluate any bleeding. Return with any new or worsening. Print Language: Tongan Coding Level of Care Code ED Client Solutions Manager for Sandro Foster
[2024-12-18 23:22] LABS: Basophils % 0.2 %; Eosinophils # 0.2 10^3/uL (0.0-0.8); Eosinophils % 1.4 %; Hematocrit 32.5 % (37-53); Lymphocytes # 1.1 10^3/uL (0.8-4.8); Lymphocytes % 7.7 %; Mean Corpuscular HGB Conc 33.5 g/dL (30-55); Mean Corpuscular Hemoglobin 29.4 pg (27-33); Mean Corpuscular Volume 87.6 fl (82-101); Mean Platelet Volume 10.1 fL (7.4-10.4); Monocytes # 1.1 10^3/uL (0.2-0.9); Neutrophils # 11.29 10^3/uL (1.8-7.7); Neutrophils % 81.5 %; Nucleated Red Blood Cells % 0 %; Platelet Count 315 10^3/cmm (157-399); Red Blood Count 3.71 10^6/uL (3.85-5.65); Red Cell Distribution Width 13.6 % (12.1-15.1); White Blood Count 13.83 10^3/uL (3.29-11.43)
[2024-12-18 23:29] VITALS: BP 175/110; PULSE 105; RESP 13; O2SAT 96
[2024-12-18 23:31] LABS: Alanine Aminotransferase 27 U/L (0-41); Albumin Level 3.1 g/dL (3.5-5.2); Alkaline Phosphatase 86 U/L (40-130); Anion Gap 21.1 (5-19); Aspartate Amino Transferase 26 U/L (0-40); Blood Urea Nitrogen 67 mg/dL (6-20); C Reactive Protein 33.8 mg/L (0.0-4.9); Calcium 6.8 mg/dL (8.5-10.5); Carbon Dioxide 23 mmol/L (22-29); Chloride 93 mmol/L (98-107); Creatinine Clr Calc Pharmacy 19.9213; Globulin 3.5 g/dL (1.3-4.6); Glomerular Filtration Rate 15.6 mL/min (90-130); Glucose 492 mg/dL (65-115); Lipase 27 U/L (13-60); Magnesium 1.5 mg/dL (1.7-2.3); Osmolality Calculated 319 mOsm/kg (285-295); Potassium 3.1 mmol/L (3.5-5.1); Sodium 134 mmol/L (136-145); Total Bilirubin 0.3 mg/dL (0.15-1.2); Total Protein 6.6 g/dL (6.6-8.7)
[2024-12-18 23:32] LABS: Lactic Sepsis W/Reflex 1.2 mmol/L (0.5-2.2)
[2024-12-18 23:42] LABS: Bilirubin Urine Negative (Negative); Blood Urine 1+ (Negative); Glucose Urine UA 3+ (Normal); Ketones Urine Negative (Negative); Leukocyte Esterase Urine Negative (Negative); Nitrate Urine Negative (Negative); Protein Urine 3+ (Negative); Specific Gravity, Urine 1.018 (1.005-1.030); Urine Appearance Clear (CLEAR); Urine Color Yellow (Yellow); Urobilinogen Urine 0.2 mg/dL (Negative)
[2024-12-18] MEDS: potassium chloride ER 20 mEq Tablet 40 MEQ PO (23:55)
[2024-12-18] MEDS: insulin regular-human 100 units/1 mL 10 UNIT IVP (23:56)
[2024-12-19] VITALS: BP 186/99; PULSE 108; RESP 16; O2SAT 98
[2024-12-19 00:01] LABS: Add Urine Microscopic? YES; RBC Urine 0-4 /hpf (0-2); UA Manual Slide Review YES
[2024-12-19 00:02] LABS: Add Urine Culture? No; Hyaline Casts Urine 0-4 /lpf; Squamous Epithelial Cell Urine 0-4 /hpf (0-5); WBC Urine 0-4 /hpf (0-5)
[2024-12-19 00:58] VITALS: BP 175/98; PULSE 110; O2SAT 97
--- NOTE | 2024-12-19 07:26 | DCPLANNER ---
Message sent to General surgery-Patient Instructions: Rectal Bleeding (ED), Chronic Kidney Disease (ED), Diabetic Kidney Disease (ED) Activity Restrictions/Additional Instructions: Take calcium and magnesium supplements [id number]. Continue taking your home medications. Follow-up with general surgery as we have arranged for colonoscopy to evaluate any bleeding. Return with any new or worsening.
== END 2024-12-19 00:10 | disposition home or self-care (01) ==
PROVIDERS: Emergency Provider Physician Assistant; PCP Family Medicine
DX: K92.1 Melena (principal); F41.9 Anxiety disorder, unspecified; E11.22 Type 2 diabetes mellitus with diabetic chronic kidney disease; I12.0 Hypertensive chronic kidney disease with stage 5 chronic kidney disease or end stage renal disease; N18.5 Chronic kidney disease, stage 5; Z99.2 Dependence on renal dialysis; Z79.82 Long term (current) use of aspirin; Z79.84 Long term (current) use of oral hypoglycemic drugs
CPT/HCPCS: 36415; 80053; 81001; 81003; 83605; 83690; 83735; 85025; 86140; 96374; 99285; J1815

== ENCOUNTER → 2024-12-24 11:17 | Outpatient (BNVA) | payer OTHER, SELFPAY | PROVIDERS: PCP Family Medicine; Visit Provider Nurse Practitioner Psychiatric/Mental Health | DX: F31.81 Bipolar II disorder (principal) | CPT/HCPCS: 80061 ==

== ENCOUNTER 2025-01-03 00:27 | Inpatient (IN) | payer MEDICARE, MEDICAID, SELFPAY ==
[2024-12-26 13:42] VITALS: BMI 29.2
[2025-01-03] VITALS (57 sets, daily range): BP systolic 148–187; BP diastolic 77–106; PULSE 87–106; RESP 2–24; TEMP 36.4–36.9; O2SAT 82–99; BMI 30.7
--- NOTE | 2025-01-03 00:32 | XRR_ITS ---
PROCEDURE INFORMATION: Exam: XR Chest Exam date and time: 01/03/2025 12:55 AM Age: 59 years old Clinical indication: Dyspnea TECHNIQUE: Imaging protocol: Radiologic exam of the chest. Views: 1 view. COMPARISON: CR (CHEST, ) 12/09/2024 4:52 PM FINDINGS: Lungs: Extensive chronic fibrotic changes, similar to prior. Previously identified infiltrates left lung base have improved but are not completely resolved. There appears to be a new infiltrate right lung base. Pleural spaces: Unremarkable. No pleural effusion. No pneumothorax. Heart/Mediastinum: Unremarkable. No cardiomegaly. Bones/joints: Unremarkable. Other findings: No effusion. XR/XR chest 1V portable [id number] IMPRESSION: Acute appearing infiltrate right lung base superimposed upon chronic interstitial changes.
--- NOTE | 2025-01-03 00:34 | ECG_ITS ---
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 Measurements Intervals [place] Rate: 104 P: 12 TN: 142 QRS: 5 QRSD: 87 T: -30 QT: 352 QTc: 464 Interpretive Statements SINUS TACHYCARDIA NONSPECIFIC ST & T-WAVE ABNORMALITY ABNORMAL RHYTHM ECG Compared to ECG 12/15/2024 20:37:57 T-wave abnormality now present Electronically Signed On 01-05-2025 18:06:50 PLASTIC FIXTURE BUILDER by Toby Saenz M.D. [id number]
[2025-01-03 00:42] LABS: Basophils # 0.1 10^3/uL (0.0-0.1); Basophils % 1.3 %; Eosinophils # 0.2 10^3/uL (0.0-0.8); Eosinophils % 3.2 %; Hematocrit 28.3 % (37-53); Lymphocytes # 1.6 10^3/uL (0.8-4.8); Lymphocytes % 22.6 %; Mean Corpuscular HGB Conc 30.7 g/dL (30-55); Mean Corpuscular Hemoglobin 28.3 pg (27-33); Mean Corpuscular Volume 92.2 fl (82-101); Mean Platelet Volume 9.8 fL (7.4-10.4); Monocytes # 0.7 10^3/uL (0.2-0.9); Monocytes % 9.6 %; Neutrophils # 4.32 10^3/uL (1.8-7.7); Neutrophils % 62.6 %; Nucleated Red Blood Cells % 0 %; Platelet Count 536 10^3/cmm (157-399); Red Blood Count 3.07 10^6/uL (3.85-5.65)
--- NOTE | 2025-01-03 00:45 | W.ED.SOB ---
HPI - SOB/Dyspnea General: Chief Complaint: Shortness of Breath/Dyspnea Stated Complaint: ANXIETY, SOB Time Seen by Provider: 01/03/25 00:32 History of Present Illness: HPI Narrative: Patient presents to the ER by EMS with complaints of shortness of breath. He says this began earlier today to get worse. He did receive an albuterol nebulizer en route by EMS. He does not wear oxygen at home. He has end-stage renal disease, diabetes, hypertension, patient denies any coughs colds fevers chills nausea vomiting diarrhea EMS stated when they got there he was satting 85% with good waveform on room air. Related Data Home Medications ?Medication ?Instructions ?Recorded ?Confirmed pantoprazole 40 mg tablet,delayed 40 mg PO DAILY 12/06/24 12/26/24 release bupropion HCl 150 mg 24 hr tablet, 150 mg PO DAILY 12/07/24 12/26/24 extended release metoprolol succinate 50 mg 25 mg PO DAILY 12/07/24 12/26/24 tablet,extended release 24 hr lisinopril 40 mg tablet 40 mg PO DAILY 12/25/24 12/26/24 Previous Rx's ?Medication ?Instructions ?Recorded diabetic shoes w/ 3 inserts #1 ea 09/06/24 aspirin 81 mg tablet,delayed 81 mg PO DAILY #90 tabs 10/06/24 release clonidine HCl 0.1 mg tablet 0.1 mg PO DAILY PRN hypertensive 11/26/24 emergency #7 tabs divalproex 250 mg tablet,delayed 250 mg PO .7 pm #30 tabs 11/26/24 release (Depakote) amlodipine 10 mg tablet 10 mg PO DAILY #90 tabs 12/06/24 furosemide 40 mg tablet (Lasix) See Rx Instructions PO QAM #21 tabs 12/25/24 glipizide 5 mg tablet, extended 5 mg PO DAILY #30 tabs 12/25/24 release 24 hr hydrochlorothiazide 25 mg tablet 25 mg PO DAILY #90 tabs 12/25/24 hydralazine 10 mg tablet 10 mg PO TID PRN Anxiety #90 tabs 12/28/24 Allergies Allergy/AdvReac Type Severity Reaction Status Date / Time No Known Allergies Allergy Verified 01/03/25 00:34 Review of Systems General: Reports: 10 or more systems reviewed and unremarkable except in HPI and below PFSH ED PFSH: Medical History (HFpEF) heart failure with preserved ejection fraction Poor compliance with medication CKD (chronic kidney disease), stage V Influenza Acute on chronic renal failure Acute hypoxemic respiratory failure Community acquired pneumonia HALIE (acute kidney injury) Non-STEMI (non-ST elevated myocardial infarction) Hyperglycemia Hammertoe of right foot Callus of heel Type 2 diabetes mellitus Blurred vision CKD (chronic kidney disease) stage V requiring chronic dialysis Nicotine dependence, cigarettes, uncomplicated Bereavement Mother in February 2024 Cannabis use disorder, moderate, dependence Chronic post-traumatic stress disorder Bipolar II disorder Impaired visual perception Psychiatric care Anemia 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 Social History Smoking and tobacco/nicotine status: former use of tobacco/nicotine Alcohol intake: former Adopted: No Caregiver/support person: No Lives independently: Yes Household members: none Housing: Apartment Marital status: Number of children: 1 Highest education level completed: High School Graduate service: No Current occupational status: disabled Current occupational exposures/hazards: No Pets and animals: Yes Pets & animals: cat(s) and dog(s) Leisure activites: other Leisure activities details: play music Sexually active: No Do you think of yourself as: Straight/Heterosexual Current gender identity: Male Carmita/Sikhism: Sikh Special carmita needs: No Agree to transfusion: Yes Physical Exam Const: COMMON NORMALS: no acute distress, average body habitus, patient oriented x3, no limitations, healthy appearing, alert and well nourished HENMT: COMMON NORMALS: normocephalic, atraumatic, hearing grossly normal bilaterally, external ears normal, Normal external nose present, moist oral mucous membranes and oropharynx normal HEAD & SCALP: normocephalic and atraumatic NOSE: Normal external nose present EXTERNAL EAR: Yes external ears normal Neck/C-Spine: COMMON NORMALS: no JVD Chest: COMMONS NORMALS: normal inspection of the chest and normal palpation of entire chest wall Resp: COMMON NORMALS: normal respiratory effort, No retractions, No use of accessory muscles and clear to auscultation bilaterally AUSCULTATION: clear to auscultation bilaterally Cardio: COMMON NORMALS: no JVD, regular rate, regular rhythm, S1 normal heart sound present, S2 normal heart sound present, No gallops present (Cardio), No clicks present (Cardio), No murmurs present (Cardio) and No rub (Cardio) RATE: regular rate RHYTHM: regular rhythm HEART SOUNDS: S1 normal heart sound present and S2 normal heart sound present GI: COMMON NORMALS: Normal to inspection, nondistended, normoactive bowel sounds present, Soft to palpation, non-tender, No hepatosplenomegaly present and no masses PALPATION: Yes Soft to palpation and Yes No hepatosplenomegaly present Neuro: COMMON NORMALS: patient oriented x3 SENSORIUM/ORIENTATION: Yes alert Course Vital Signs: Vital signs: Vital Signs Temperature 97.6 F 01/03/25 00:28 Pulse Rate 105 H 01/03/25 00:28 Respiratory Rate 24 H 01/03/25 00:28 Blood Pressure 177/88 01/03/25 00:28 Pulse Oximetry 82 L 01/03/25 00:28 Oxygen Delivery Me thod Room Air 01/03/25 00:28 MDM - SOB/Dyspnea Medical Decision Making Patient presented with O2 sat of 83% on room air, he is requiring 6 L of oxygen to keep his O2 sat in the 90s. Lab work was reviewed, patient is not complaining of chest pain. Chest x-ray per the radiologist showed acute right infiltrate, previous visits and notes were reviewed, patient is usually very noncompliant however he has been pleasant up until this point. I did discuss with him needing to be in the hospital which she is agreeable. Dr. Hanson was consulted who agreed to place patient inpatient for further evaluation treatment. Lab Data 01/03/25 00:11 01/03/25 00:11 Labs/Radiology: Radiology Impressions Chest X-Ray 01/03/25 00:32 IMPRESSION: Acute appearing infiltrate right lung base superimposed upon chronic interstitial changes. Laboratory Results WBC 6.90 10^3/uL (3.29-11.43) 01/03/25 00:11 RBC 3.07 10^6/uL (3.85-5.65) L 01/03/25 00:11 Hgb 8.70 g/dL (11.27-16.99) L 01/03/25 00:11 Hct 28.3 % (37-53) L 01/03/25 00:11 MCV 92.2 fl (82-101) 01/03/25 00:11 MCH 28.3 pg (27-33) 01/03/25 00:11 MCHC 30.7 g/dL (30-55) 01/03/25 00:11 RDW 14.0 % (12.1-15.1) 01/03/25 00:11 Plt Count 536 10^3/cmm (157-399) H 01/03/25 00:11 MPV 9.8 fL (7.4-10.4) 01/03/25 00:11 Neut % (Auto) 62.6 % 01/03/25 00:11 Lymph % (Auto) 22.6 % 01/03/25 00:11 [facility] % (Auto) 9.6 % 01/03/25 00:11 Eos % (Auto) 3.2 % 01/03/25 00:11 Baso % (Auto) 1.3 % 01/03/25 00:11 Neut # (Auto) 4.32 10^3/uL (1.8-7.7) 01/03/25 00:11 Lymph # (Auto) 1.6 10^3/uL (0.8-4.8) 01/03/25 00:11 [facility] # (Auto) 0.7 10^3/uL (0.2-0.9) 01/03/25 00:11 Eos # (Auto) 0.2 10^3/uL (0.0-0.8) 01/03/25 00:11 Baso # (Auto) 0.1 10^3/uL (0.0-0.1) 01/03/25 00:11 Nucleated RBC % (auto) 0 % 01/03/25 00:11 Nucleated RBCs # 0.0 /100WBC 01/03/25 00:11 Sodium 141 mmol/L (136-145) 01/03/25 00:11 Potassium 4.9 mmol/L (3.5-5.1) 01/03/25 00:11 Chloride 105 mmol/L (98-107) 01/03/25 00:11 Carbon Dioxide 21 mmol/L (22-29) L 01/03/25 00:11 Anion Gap 19.9 (5-19) H 01/03/25 00:11 BUN 58 mg/dL (6-20) H 01/03/25 00:11 Creatinine 5.0 mg/dL (0.7-1.2) H 01/03/25 00:11 GFR Calculation 12.0 mL/min (90-130) L 01/03/25 00:11 Glucose 162 mg/dL (65-115) H 01/03/25 00:11 Calculated Osmolality 312 mOsm/kg (285-295) H 01/03/25 00:11 Calcium 7.6 mg/dL (8.5-10.5) L 01/03/25 00:11 Phosphorus 5.3 mg/dL (2.5-4.5) H 01/03/25 00:11 Magnesium 2.1 mg/dL (1.7-2.3) 01/03/25 00:11 Total Bilirubin 0.2 mg/dL (0.15-1.2) 01/03/25 00:11 AST 15 U/L (0-40) 01/03/25 00:11 ALT 10 U/L (0-41) 01/03/25 00:11 Alkaline Phosphatase 110 U/L (40-130) 01/03/25 00:11 Troponin T Baseline 230 ng/L (0-15) H* 01/03/25 00:11 Total Protein 7.2 g/dL (6.6-8.7) 01/03/25 00:11 Albumin 3.5 g/dL (3.5-5.2) 01/03/25 00:11 Globulin 3.7 g/dL (1.3-4.6) 01/03/25 00:11 All radiology interpretation(s) finalized by discharge Discharge Plan Discharge Patient Disposition: Admitted As Inpatient Clinical Impression: Acute hypoxemic respiratory failure, End-stage renal disease (ESRD) Pneumonia Qualifiers: Pneumonia type: due to unspecified organism Laterality: right Lung location: lower lobe of lung Qualified Code(s): J18.9 - Pneumonia, unspecified organism Condition: Stable Coding Level of Care Code ED Order To Delivery Supervisor for Sandro Foster
[2025-01-03 01:04] LABS: Alanine Aminotransferase 10 U/L (0-41); Albumin Level 3.5 g/dL (3.5-5.2); Alkaline Phosphatase 110 U/L (40-130); Anion Gap 19.9 (5-19); Aspartate Amino Transferase 15 U/L (0-40); Blood Urea Nitrogen 58 mg/dL (6-20); Calcium 7.6 mg/dL (8.5-10.5); Carbon Dioxide 21 mmol/L (22-29); Chloride 105 mmol/L (98-107); Creatinine Clr Calc Pharmacy 16.7737; Globulin 3.7 g/dL (1.3-4.6); Glucose 162 mg/dL (65-115); Magnesium 2.1 mg/dL (1.7-2.3); Osmolality Calculated 312 mOsm/kg (285-295); Phosphorus 5.3 mg/dL (2.5-4.5); Potassium 4.9 mmol/L (3.5-5.1); Sodium 141 mmol/L (136-145); Total Bilirubin 0.2 mg/dL (0.15-1.2); Total Protein 7.2 g/dL (6.6-8.7)
[2025-01-03 01:16] LABS: Troponin(5th) Baseline 230 ng/L (0-15)
--- NOTE | 2025-01-03 01:30 | PM.HP ---
Providers/Chief Complaint Primary Care Provider: Pierce Justice MD Chief Complaint: ANXIETY, SOB History of Present Illness Joseph Baker is a 59 year old male with multiple admissions in the recent past, recently had renal biopsy done at [facility], patient has not followed up with any boarder hand stating that he has no means to follow-up with them,(pathology: Nodular diabetic glomerulosclerosis class III, ATN. ) hypertension, diabetes, worsening chronic kidney disease, emotionally labile, non-STEMI managed medically, has had multiple patient centered discharges from the hospitals i.e. [facility], [facility], [facility], [place], presented with worsening shortness of breath. Patient is stating that he has been experiencing orthopnea PND water gain for last few days and today he was experiencing shortness of breath worsening that prompted a visit to the ER, in the ER he is requiring 6 L nasal cannula to keep his saturation 95% he is hypertensive, no active chest pain, not endorsing fever diarrhea or vomiting, stating that he brings up panda colored sputum, stating secondary to diabetes his vision is impaired, he has a pill program planner at home and he takes medications according to that, stating that he will get home health care and first nursing with agreeably tomorrow. In the ER workup consistent with possible right-sided pneumonia and anasarca At baseline he does not use oxygen Review of Systems Const: Reports: chills; Denies: fever(s) Eyes: Denies: change in vision ENMT: Denies: throat pain Card: Reports: swelling of feet/ankles Resp: Reports: dyspnea and productive cough Medications/Allergies Home Medications ?Medication ?Instructions ?Recorded ?Confirmed ?Last Taken ?Type diabetic shoes w/ 3 inserts #1 ea 09/06/24 12/26/24 Unknown Rx aspirin 81 mg tablet,delayed 81 mg PO DAILY #90 tabs 10/06/24 12/26/24 12/07/24 Rx release clonidine HCl 0.1 mg tablet 0.1 mg PO DAILY PRN hypertensive 11/26/24 12/26/24 Unknown Rx emergency #7 tabs divalproex 250 mg tablet,delayed 250 mg PO .7 pm #30 tabs 11/26/24 12/26/24 12/06/24 Rx release (Depakote) amlodipine 10 mg tablet 10 mg PO DAILY #90 tabs 12/06/24 12/26/24 12/07/24 Rx pantoprazole 40 mg tablet,delayed 40 mg PO DAILY 12/06/24 12/26/24 12/07/24 History release bupropion HCl 150 mg 24 hr tablet, 150 mg PO DAILY 12/07/24 12/26/24 12/07/24 History extended release metoprolol succinate 50 mg 25 mg PO DAILY 12/07/24 12/26/24 12/07/24 History tablet,extended release 24 hr furosemide 40 mg tablet (Lasix) See Rx Instructions PO QAM #21 tabs 12/25/24 12/26/24 Unknown Rx glipizide 5 mg tablet, extended 5 mg PO DAILY #30 tabs 12/25/24 12/26/24 Unknown Rx release 24 hr hydrochlorothiazide 25 mg tablet 25 mg PO DAILY #90 tabs 12/25/24 12/26/24 Unknown Rx lisinopril 40 mg tablet 40 mg PO DAILY 12/25/24 12/26/24 Unknown History hydralazine 10 mg tablet 10 mg PO TID PRN Anxiety #90 tabs 12/28/24 Unknown Rx Allergies Allergy/AdvReac Type Severity Reaction Status Date / Time No Known Allergies Allergy Verified 01/03/25 00:34 PFSH Acute PFSH: Medical History (Updated 01/03/25 @ 02:04 by Mariaelena Hanson MD) Glomerulosclerosis Renal biopsy: Pathology: Nodular diabetic glomerulosclerosis class III, ATN. (HFpEF) heart failure with preserved ejection fraction Poor compliance with medication CKD (chronic kidney disease), stage V Influenza Acute on chronic renal failure Acute hypoxemic respiratory failure Community acquired pneumonia HALIE (acute kidney injury) Non-STEMI (non-ST elevated myocardial infarction) Hyperglycemia Hammertoe of right foot Callus of heel Type 2 diabetes mellitus Blurred vision CKD (chronic kidney disease) stage V requiring chronic dialysis Nicotine dependence, cigarettes, uncomplicated Bereavement Mother in February 2024 Cannabis use disorder, moderate, dependence Chronic post-traumatic stress disorder Bipolar II disorder Impaired visual perception Psychiatric care Anemia 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 Social History Smoking and tobacco/nicotine status: former use of tobacco/nicotine Alcohol intake: former Adopted: No Caregiver/support person: No Lives independently: Yes Household members: none Housing: Apartment Marital status: Number of children: 1 Highest education level completed: High School Graduate service: No Current occupational status: disabled Current occupational exposures/hazards: No Pets and animals: Yes Pets & animals: cat(s) and dog(s) Leisure activites: other Leisure activities details: play music Sexually active: No Do you think of yourself as: Straight/Heterosexual Current gender identity: Male Carmita/Mormonism: Yarsani Special carmita needs: No Agree to transfusion: Yes Vitals/I&O/Wt Last Vital Signs Temp 97.6 F 01/03/25 00:28 Pulse 105 H 01/03/25 00:28 Resp 24 H 01/03/25 00:28 BP 177/88 01/03/25 00:28 Pulse Ox 82 L 01/03/25 00:28 O2 Del Method Room Air 01/03/25 00:28 01/02/25 01/02/25 01/03/25 14:59 22:59 06:59 Intake Total 0 / 0 Balance 0 / 0 Weight last 48 hrs Weight 86.183 kg Physical Exam Narrative: Patient has features of fluid overload Volume overloaded state Currently on 6 L nasal cannula Bilateral bedside with rhonchi No active chest pain S1, S2 Hypertensive Nonfocal neuroexam GCS 15 Lower extremity 3+ edema Callus of the foot without any signs of infection Abdomen soft No acute distress Emotionally labile Data 01/03/25 00:11 01/03/25 00:11 A&P Assessment and plan (1) Poor compliance with medication: (2) Major depressive disorder, recurrent severe without psychotic features: (3) (HFpEF) heart failure with preserved ejection fraction: (4) Elevated troponin: (5) CKD (chronic kidney disease), stage V: (6) Peripheral neuropathy: (7) Pneumonia: Qualifiers: Laterality: right Lung location: lower lobe of lung Pneumonia type: due to unspecified organism Qualified Code(s): J18.9 - Pneumonia, unspecified organism (8) Acute hypoxemic respiratory failure: (9) Skin lesions, generalized: (10) Edema: (11) Glomerulosclerosis: Plan Acute hypoxia Secondary to volume overload and pneumonia Currently on 6 L nasal cannula Start ceftriaxone and azithromycin No active fever No leukocytosis requested procalcitonin Patient endorsing productive cough Requested sputum culture Hypervolemia Multifactorial underlying preserve ejection fraction cardiomyopathy Chronic kidney disease related diabetes Start IV diuresis Patient has been making adequate urine in the past No acute indication for dialysis Patient will need regular follow-up with nephrology, No acidosis, potassium 4.9 Creatinine seems around baseline now Poorly controlled hypertension and diabetes By PCP patient was put on glipizide metformin was discontinued In the hospital I will keep him on insulin sliding scale and Lantus Optimize antihypertensive regimen Compliance with medication is questionable, PCP has arranged home health care nurse visits Diabetes related neuropathy, callus of the foot noninfected PCP Dr. Justice spoke to Dr. Cespedes biopsy: diabetic nephropathy. some ATN patient will not be accepted for dialysis due to behavior. irrational to talk with. security called on two occasions. nurse switches. There was plan in place to send him to [facility] associated nephrology group. Elevated troponin, Patient was treated for non-STEMI and elevated troponin in the past, Echo showed no wall motion abnormality, he was managed medically, patient not endorsing any active chest pain Serial troponin EKG for now Could be related to underlying renal disease Full code Renal diet diabetic DVT prophylaxis: Heparin PDMP PDMP Reviewed: Not Reviewed Attestations Medical Necessity Statement*: More than 2 midnights anticipated Diagnoses Poor compliance with medication Z91.148 Major depressive disorder, recurrent severe without psychotic features F33.2 (HFpEF) heart failure with preserved ejection fraction I50.30 Elevated troponin R79.89 CKD (chronic kidney disease), stage V N18.5 Peripheral neuropathy G62.9 Pneumonia J18.9 Laterality: right Lung location: lower lobe of lung Pneumonia type: due to unspecified organism Acute hypoxemic respiratory failure J96.01 Skin lesions, generalized L98.9 Edema R60.9 Glomerulosclerosis N26.9
[2025-01-03 02:17] LABS: Lactic Sepsis W/Reflex 0.6 mmol/L (0.5-2.2)
[2025-01-03 02:18] LABS: Troponin 5 2HR Delta -13.9 ABS# (0-10)
[2025-01-03 02:19] LABS: Troponin 5 2HR 216.1 ng/L (0-15)
[2025-01-03] MEDS: piperacillin-tazobactam 3.375 GM in sodium chloride 0.9% (plus) 50 ML IV (02:29)
[2025-01-03] MEDS: FUROsemide 10 mg/mL SDV 10mL 40 MG IVP ×2 (02:31→14:04)
--- NOTE | 2025-01-03 02:34 | ECG_ITS ---
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 Measurements Intervals [place] Rate: 100 P: 69 NH: 124 QRS: 97 QRSD: 90 T: 151 QT: 364 QTc: 470 Interpretive Statements SINUS TACHYCARDIA POSSIBLE LEFT ATRIAL ENLARGEMENT [-0.1mV P-WAVE IN V1/V2] BORDERLINE RIGHT AXIS DEVIATION [QRS AXIS > 90] LOW QRS VOLTAGE IN EXTREMITY LEADS [QRS DEFLECTION < 0.5 mV IN LIMB LEADS] Compared to ECG 12/15/2024 20:37:57 Low QRS voltage now present Electronically Signed On 01-05-2025 19:40:51 HOME CARE SPECIALIST by Toby Saenz M.D. [email or web address]
[2025-01-03 02:43] LABS: Procalcitonin 0.11 ng/mL (0-0.5)
[2025-01-03 02:57] LABS: Glucose Point of Care 168 mg/dL (70-110)
--- NOTE | 2025-01-03 03:02 | PC.NURSE ---
PT REFUSED PCR SWAB.
[2025-01-03] MEDS: heparin 5,000 unit/mL INJ 1 mL 5000 UNIT SUBCUT ×2 (05:59→17:05)
[2025-01-03 06:46] LABS: Anion Gap 18.2 (5-19); Blood Urea Nitrogen 57 mg/dL (6-20); C Reactive Protein 13.3 mg/L (0.0-4.9); Calcium 7.4 mg/dL (8.5-10.5); Carbon Dioxide 20 mmol/L (22-29); Chloride 105 mmol/L (98-107); Creatinine Clr Calc Pharmacy 16.4448; Glomerular Filtration Rate 11.8 mL/min (90-130); Glucose 128 mg/dL (65-115); Osmolality Calculated 305 mOsm/kg (285-295); Potassium 4.2 mmol/L (3.5-5.1); Sodium 139 mmol/L (136-145)
[2025-01-03 06:47] LABS: Basophils # 0.1 10^3/uL (0.0-0.1); Basophils % 1.6 %; Eosinophils # 0.2 10^3/uL (0.0-0.8); Eosinophils % 3.5 %; Lymphocytes # 1.6 10^3/uL (0.8-4.8); Mean Corpuscular HGB Conc 30.9 g/dL (30-55); Mean Corpuscular Hemoglobin 29.1 pg (27-33); Mean Corpuscular Volume 94.3 fl (82-101); Mean Platelet Volume 9.9 fL (7.4-10.4); Monocytes # 0.7 10^3/uL (0.2-0.9); Monocytes % 10.7 %; Neutrophils % 58.7 %; Nucleated Red Blood Cells % 0 %; Platelet Count 475 10^3/cmm (157-399); Red Blood Count 2.44 10^6/uL (3.85-5.65); Red Cell Distribution Width 13.9 % (12.1-15.1); White Blood Count 6.29 10^3/uL (3.29-11.43)
[2025-01-03 06:48] LABS: Troponin 5 6HR 191.1 ng/L (0-15); Troponin 5 6HR Delta -38.9 ng/L (0-12)
--- NOTE | 2025-01-03 06:58 | ECG_ITS ---
[facility] Test Date: 2025-01-03 Pat Name: Joseph Baker Department: Room: 277 Gender: Male Transition Nurse: : 1965 Requested By: Naresh Arreaga Order Number: [id number] Miles MD: Toby Saenz M.D. Measurements Intervals [place] Rate: 97 P: 47 MT: 149 QRS: 58 QRSD: 87 T: 91 QT: 363 QTc: 463 Interpretive Statements SINUS RHYTHM NONSPECIFIC T-WAVE ABNORMALITY Compared to ECG 01/03/2025 02:48:36 T-wave abnormality now present Sinus tachycardia no longer present Electronically Signed On 01-05-2025 19:40:43 SEARCH MANAGER by Toby Saenz M.D. [id number] [id number]
[2025-01-03] MEDS: amlodipine 10 mg Tablet PO (07:39)
[2025-01-03 07:46] LABS: Glucose Point of Care 161 mg/dL (70-110)
--- NOTE | 2025-01-03 08:22 | PC.PHAR ---
Patient states he wasn't sure if he could tell me his medications if I read them to him . I verified off Pharmacy list . Patient did state he took his medications yesterday .
[2025-01-03] MEDS: metoprolol succinate ER (24 HR) 50 mg Tablet 25 MG PO (09:43)
[2025-01-03] MEDS: azithromycin 250 mg Tablet 500 MG PO (09:43)
[2025-01-03] MEDS: aspirin 81 mg EC Tablet PO (09:43)
[2025-01-03] MEDS: sennosides-docusate Tablet 1 TAB PO (09:43)
[2025-01-03] MEDS: insulin lispro 100 unit/1 mL SUBCUT (09:46)
[2025-01-03] MEDS: cefTRIAXone 1,000 mg SDV 1000 MG IVP (09:58)
[2025-01-03 10:38] LABS: Glucose Point of Care 132 mg/dL (70-110)
[2025-01-03] MEDS: insulin glargine 100 units/1 mL 10 UNIT SUBCUT (11:43)
[2025-01-03 13:25] LABS: Ferritin 160 ng/mL (30-400); Iron 38 ug/dL (59-158); Percent Saturation 13.7 % (20-50); Total Iron Binding Capacity 276 mcg/dl; Unsaturated Iron Binding 238 ug/dL (112-347)
--- NOTE | 2025-01-03 15:07 | P.MISC_ITS ---
Miscellaneous Note Purpose of Documentation: Overnight labs and H&P reviewed. Chart reviewed extensively. Unfortunately patient has been dismissed from services from [facility] in [place]. We called the present his dialysis center and Dr. Cespedes's office in [facility] to establish follow-up as outpatient after he is discharged. It is likely that patient will need to start dialysis in the short-term, however we have been updated that due to patient's aggressive behavior he has not been accepted as a patient and future requests are not currently being entertained. Attempted to discuss difficult social situation with the patient, however currently he does not wish to discuss any details. He claims he is surprised to learn that he has kidney problems, however this is in direct conflict with all previous reported notes. I have spoken extensively to his statistical programmer from [facility] [place] who confirms that patient is very well were aware of his kidney issues. He does not believe me when I tell him that he will likely need to start dialysis in the near future. However we are unable to find any outpatient band saw operator cake cutting willing to assume his care. It appears he has a referral out to [facility] nephrology which is being followed up as an outpatient. He has not heard back yet. Reviewed chest x-ray from December and current admission. Chest x-ray actually shows improved aeration compared to December when he was here with pneumonia. Patient had an oxygen requirement even on the last admission. He was saturating 85 to 89% on room air at that time. Home oxygen was attempting to be arranged for the patient on the December visit, however thereafter he transferred to [facility] for a kidney biopsy from where he elected to leave [place]. I am assuming that patient has had some degree of chronic hypoxia however oxygen has not been able to be arranged due to him leaving [place] from different facility. For now we will continue with diuresis with Lasix 40 mg IV every 12 hours. Currently his acute symptoms appear to be related to pulmonary edema. Additionally he has chronically elevated troponins with downtrend. No significant delta. Favor this to be related to his chronic kidney disease, type II CA from demand. His hemoglobin has dropped down to 7.1. Given evidence of elevated troponins with anemia, possible that anemia may be contributing in some degree to his increased demand. Will transfuse 1 unit of packed red blood cells which she has allowed. Much of the consents today were taken with the assistance of Ms. Lane from [facility] [place] as patient has not been willing to engage with us to discuss details of his medical illnesses. He has questions with regards to peritoneal dialysis and home hemodialysis. Patient is legally blind and does not have any caregivers. I am uncertain if he will be a candidate to receive home dialysis and either form given the social situation. I have encouraged him to discuss his options with nephrology. Consult has been placed.
[2025-01-03 16:40] LABS: Glucose Point of Care 95 mg/dL (70-110)
--- NOTE | 2025-01-03 20:18 | PC.NURSE ---
nurse came into pt room to take VS cart out that is alarming, pt in bathroom and pt had asked if I could shut the machine off, I told him that I am actually taking the machine out, pt stated it has been beeping for a long time, are you guys that busy? this nurse told pt that yes we are and pt stated you are really? and that is still beeping I told pt that I am taking it out of the room but pt keeps asking questions and pt then stated Oh you want to play that game do you and keeps repeating statement and stated you don't know who you are messing with pt hostile and security called to the floor.
[2025-01-03 21:47] LABS: Glucose Point of Care 110 mg/dL (70-110)
[2025-01-03] MEDS: ipratropium-albuterol 3 mL Neb INHALATION (22:06)
[2025-01-04] VITALS (8 sets, daily range): BP systolic 153–189; BP diastolic 85–93; PULSE 91–110; RESP 16–18; TEMP 36.4–36.8; O2SAT 91–94; BMI 29.7
[2025-01-04] MEDS: FUROsemide 10 mg/mL SDV 10mL 40 MG IVP (02:11)
[2025-01-04 06:22] LABS: Glucose Point of Care 84 mg/dL (70-110)
[2025-01-04] MEDS: heparin 5,000 unit/mL INJ 1 mL 5000 UNIT SUBCUT (06:26)
[2025-01-04 06:47] LABS: Basophils # 0.1 10^3/uL (0.0-0.1); Basophils % 1.6 %; Eosinophils # 0.2 10^3/uL (0.0-0.8); Eosinophils % 3.2 %; Hematocrit 29.2 % (37-53); Lymphocytes # 1.6 10^3/uL (0.8-4.8); Lymphocytes % 28.5 %; Mean Corpuscular HGB Conc 31.8 g/dL (30-55); Mean Corpuscular Hemoglobin 28.9 pg (27-33); Mean Corpuscular Volume 90.7 fl (82-101); Mean Platelet Volume 9.4 fL (7.4-10.4); Monocytes # 0.6 10^3/uL (0.2-0.9); Neutrophils # 3.14 10^3/uL (1.8-7.7); Neutrophils % 56.3 %; Nucleated Red Blood Cells % 0 %; Platelet Count 477 10^3/cmm (157-399); Red Blood Count 3.22 10^6/uL (3.85-5.65); Red Cell Distribution Width 14.5 % (12.1-15.1); White Blood Count 5.58 10^3/uL (3.29-11.43)
[2025-01-04 07:08] LABS: Alanine Aminotransferase 8 U/L (0-41); Albumin Level 3.1 g/dL (3.5-5.2); Alkaline Phosphatase 101 U/L (40-130); Anion Gap 18.1 (5-19); Aspartate Amino Transferase 12 U/L (0-40); Blood Urea Nitrogen 58 mg/dL (6-20); Calcium 8.1 mg/dL (8.5-10.5); Carbon Dioxide 21 mmol/L (22-29); Chloride 103 mmol/L (98-107); Creatinine Clr Calc Pharmacy 15.9022; Globulin 4.1 g/dL (1.3-4.6); Glomerular Filtration Rate 11.5 mL/min (90-130); Glucose 81 mg/dL (65-115); Osmolality Calculated 301 mOsm/kg (285-295); Potassium 4.1 mmol/L (3.5-5.1); Sodium 138 mmol/L (136-145); Total Bilirubin 0.2 mg/dL (0.15-1.2); Total Protein 7.2 g/dL (6.6-8.7)
[2025-01-04] MEDS: ipratropium-albuterol 3 mL Neb INHALATION (08:37)
[2025-01-04] MEDS: azithromycin 250 mg Tablet 500 MG PO (09:40)
[2025-01-04] MEDS: metoprolol succinate ER (24 HR) 50 mg Tablet 25 MG PO (09:40)
[2025-01-04] MEDS: cefTRIAXone 1,000 mg SDV 1000 MG IVP (09:41)
[2025-01-04] MEDS: amlodipine 10 mg Tablet PO (09:41)
[2025-01-04] MEDS: aspirin 81 mg EC Tablet PO (09:41)
[2025-01-04] MEDS: insulin glargine 100 units/1 mL 10 UNIT SUBCUT (09:46)
--- NOTE | 2025-01-04 10:19 | PC.CHAP ---
Pastoral Care Encounter/Spiritual Assessment Type of Contact [] Declined academic counselor visit [] Patient/Family/Request visit [] Outpatient visit [] Follow-up visit [] Physician referral [] Code/Alert [x] Routine visit [] Staff referral [] Actively dying [] Patient sleeping [] Family support [] [] Out of room [] Palliative care [] [] Receiving care in room [] Pre-surgical visit [] Trauma [] Long length of stay [] ICU visit [] Other: Relational/Emotional Strength [x] Patient feels connected with others/family/visitors/staff [] Distress [] Loneliness/isolation [] Abandonment Spirituality of Patient [x] Person of Carmita [] Attends Evangelical of their Carmita [x] Believes in Prayer [] Reads Bible or Hindu materials [] There are Spiritual issues to be addressed 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 [x] Prayer [x] Active listening [] Non-anxious presence [x] Spiritual/emotional support [] Crisis/trauma care [] Spiritual counseling [] Bereavement support [] Provided bereavement packet [] Provided Bible/devotional materials [] Provided toy/stuffed animal, coloring book to patient or family member [] Provided Communion [] Anointing/Velpen [] Salvation [x] Completed spiritual assessment [] Other: Impact on Illness or Injury [] Angry [] Fearful [] Anxious [] Often cries [] Exhaustion [] Unable to work [] Unable to attend temple [] Unable to walk/stand [] Unable to read [] Unable to drive [] Unable to eat/drink [] Unable to sleep [] Unable to be with family [] Patient intubated [] Other: Summary Time spent with patient 5 min
[2025-01-04 11:33] LABS: Glucose Point of Care 127 mg/dL (70-110)
--- NOTE | 2025-01-04 12:30 | PC.NURSE ---
Placed a verbal order from for a nebulizer and albuterol inhaled treatments every 4 hours as needed for shortness of breath. Nebulizer order placed and Albuterol called into [facility]. Patient called and notified.
--- NOTE | 2025-01-04 13:04 | PM.CONSULT ---
Providers/Reason For Consult Consulting Physician/Specialty*: Nephrology Reason for Consult*: halie Requesting Physician: DR Medina Attending Physician: Rosanna Medina MD Primary Care Provider: Pierce Justice MD History of Present Illness History of Present Illness Joseph Baker is a 59 year old male, with a history of ckd stage 5, htn, dm2, s/p renal biopsy done at [facility], who presented to the er on 01/03/2025 complaining of worsening shortness of breath. His work-up revealed pulmonary edema and pneumonia. he was started on iv ceftriazone and azithromycin and diuretics. per the medical record, his renal biopsy revealed Nodular diabetic glomerulosclerosis class III, ATN. At the time of my examination, he denies any complaints. Nephrology was consulted for further management of his halie. Review of Systems General: Reports: 10 or more systems reviewed and unremarkable except in HPI and below Card: Reports: dyspnea on exertion Resp: Reports: dyspnea and non-productive cough Medications/Allergies Home Medications ?Medication ?Instructions ?Recorded ?Confirmed ?Last Taken ?Type diabetic shoes w/ 3 inserts #1 ea 09/06/24 01/03/25 Unknown Rx aspirin 81 mg tablet,delayed 81 mg PO DAILY #90 tabs 10/06/24 01/03/25 01/02/25 Rx release clonidine HCl 0.1 mg tablet 0.1 mg PO DAILY PRN hypertensive 11/26/24 01/03/25 Unknown Rx emergency #7 tabs divalproex 250 mg tablet,delayed 250 mg PO .7 pm #30 tabs 11/26/24 01/03/25 12/06/24 Rx release (Depakote) amlodipine 10 mg tablet 10 mg PO DAILY #90 tabs 12/06/24 01/03/25 01/02/25 Rx pantoprazole 40 mg tablet,delayed 40 mg PO DAILY 12/06/24 01/03/25 01/02/25 History release bupropion HCl 150 mg 24 hr tablet, 150 mg PO DAILY 12/07/24 01/03/25 01/02/25 History extended release metoprolol succinate 50 mg 25 mg PO DAILY 12/07/24 01/03/25 12/07/24 History tablet,extended release 24 hr glipizide 5 mg tablet, extended 5 mg PO DAILY #30 tabs 0201/03/25 01/02/25 Rx release 24 hr hydrochlorothiazide 25 mg tablet 25 mg PO DAILY #90 tabs 12/25/24 01/03/25 01/02/25 Rx lisinopril 40 mg tablet 40 mg PO DAILY 12/25/24 01/03/25 01/02/25 History hydralazine 10 mg tablet 10 mg PO TID PRN Anxiety #90 tabs 12/28/24 01/03/25 01/02/25 Rx ezetimibe 10 mg tablet 10 mg PO DAILY 01/03/25 01/03/25 01/02/25 History amoxicillin 875 mg-potassium 1 tab PO BID 5 days #10 tabs 01/04/25 Unknown Rx clavulanate 125 mg tablet azithromycin 250 mg tablet 500 mg (2 x 250 mg) PO DAILY 3 01/04/25 Unknown Rx days #3 tabs furosemide 40 mg tablet (Lasix) 40 mg PO BID #30 tabs 01/04/25 Unknown Rx Allergies Allergy/AdvReac Type Severity Reaction Status Date / Time No Known Allergies Allergy Verified 01/03/25 00:34 Current Medications Generic Name Dose Route Start Last Admin Trade Name Freq PRN Reason Stop Dose Admin Albuterol/Ipratropium 3 ml 01/03/25 01:35 01/04/25 08:37 Ipratropium-Albuterol 3 Ml Neb INHALATION 3 ml Q6H PRN Administration SHORTNESS OF BREATH Amlodipine Besylate 10 mg 01/03/25 07:30 01/04/25 09:41 Amlodipine 10 Mg Tablet PO 10 mg DAILY EVELIO Administration Aspirin 81 mg 01/03/25 09:00 01/04/25 09:41 Aspirin 81 Mg Ec Tablet PO 81 mg DAILY EVELIO Administration Azithromycin 500 mg 01/03/25 09:00 01/04/25 09:40 Azithromycin 250 Mg Tablet PO 500 mg DAILY EVELIO Administration Protocol Ceftriaxone Sodium 1,000 mg 01/03/25 09:00 01/04/25 09:41 Ceftriaxone 1,000 Mg Sdv IVP 1,000 mg Q24H EVELIO Administration Protocol Furosemide 40 mg 01/03/25 01:45 01/04/25 02:11 Furosemide 10 Mg/Ml Sdv 10ml IVP 40 mg Q12H EVELIO Administration Heparin Sodium (Porcine) 5,000 unit 01/03/25 06:00 01/04/25 06:26 Heparin 5,000 Unit/Ml Inj 1 Ml SUBCUT 5,000 unit Q12H EVELIO Administration Insulin Glargine 10 unit 01/03/25 09:00 01/04/25 09:46 Insulin Glargine 100 Units/1 Ml SUBCUT 10 unit DAILY EVELIO Administration Insulin Human Lispro 0 unit 01/03/25 08:00 01/04/25 11:52 Insulin Lispro 100 Unit/1 Ml SUBCUT Not Given WM&BEDTIME EVELIO Protocol Metoprolol Succinate 25 mg 01/03/25 09:00 01/04/25 09:40 Metoprolol Succinate Er (24 Hr) 50 Mg Tablet PO 25 mg DAILY EVELIO Administration Senna/Docusate Sodium 1 tab 01/03/25 09:00 01/04/25 09:41 Sennosides-Docusate Tablet PO Not Given DAILY EVELIO PFSH Acute PFSH: Medical History (Updated 01/03/25 @ 02:04 by Mariaelena Hanson MD) Glomerulosclerosis Renal biopsy: Pathology: Nodular diabetic glomerulosclerosis class III, ATN. (HFpEF) heart failure with preserved ejection fraction Poor compliance with medication CKD (chronic kidney disease), stage V Influenza Acute on chronic renal failure Acute hypoxemic respiratory failure Community acquired pneumonia HALIE (acute kidney injury) Non-STEMI (non-ST elevated myocardial infarction) Hyperglycemia Hammertoe of right foot Callus of heel Type 2 diabetes mellitus Blurred vision CKD (chronic kidney disease) stage V requiring chronic dialysis Nicotine dependence, cigarettes, uncomplicated Bereavement Mother in February 2024 Cannabis use disorder, moderate, dependence Chronic post-traumatic stress disorder Bipolar II disorder Impaired visual perception Psychiatric care Anemia 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 Social History Smoking and tobacco/nicotine status: former use of tobacco/nicotine Alcohol intake: former Adopted: No Caregiver/support person: No Lives independently: Yes Household members: none Housing: Apartment Marital status: Number of children: 1 Highest education level completed: High School Graduate service: No Current occupational status: disabled Current occupational exposures/hazards: No Pets and animals: Yes Pets & animals: cat(s) and dog(s) Leisure activites: other Leisure activities details: play music Sexually active: No Do you think of yourself as: Straight/Heterosexual Current gender identity: Male Carmita/Samaritan: Confucianist Special carmita needs: No Agree to transfusion: Yes Vitals/I&O/Wt Last Vital Signs Temp 97.6 F 01/04/25 11:46 Pulse 110 H 01/04/25 11:46 Resp 18 01/04/25 11:46 BP 189/91 01/04/25 11:46 Pulse Ox 91 01/04/25 11:46 O2 Del Method Nasal Cannula 01/04/25 11:46 O2 Flow Rate 4 01/04/25 08:40 01/03/25 01/04/25 01/04/25 22:59 06:59 14:59 Intake Total 590 / 710 120 / 830 240 / 240 Balance 590 / 710 120 / 830 240 / 240 Weight last 48 hrs Weight 83.631 kg Weight 83.461 kg Weight 86.183 kg Physical Exam Const: COMMON NORMALS: no acute distress, patient oriented x3, no limitations, healthy appearing, alert and well nourished HENMT: COMMON NORMALS: normocephalic and atraumatic HEAD & SCALP: normocephalic and atraumatic Eye: COMMON NORMALS: EOMs intact bilaterally and no scleral icterus Neck/C-Spine: COMMON NORMALS: full ROM and no JVD Resp: COMMON NORMALS: normal respiratory effort AUSCULTATION: diminished lung sounds Cardio: COMMON NORMALS: no JVD, regular rate, regular rhythm, S1 normal heart sound present and S2 normal heart sound present RATE: regular rate RHYTHM: regular rhythm HEART SOUNDS: S1 normal heart sound present and S2 normal heart sound present GI: COMMON NORMALS: Soft to palpation and non-tender PALPATION: Yes Soft to palpation Extremity: COMMON NORMALS: normal to inspection and no pedal edema Neuro: COMMON NORMALS: patient oriented x3 SENSORIUM/ORIENTATION: Yes alert Psych: COMMON NORMALS: mental status grossly normal, Normal thought process present, cooperative and normal affect THOUGHT PROCESS: Normal thought process present Skin: COMMON NORMALS: no rashes or lesions noted GENERAL SKIN EXAM: no rashes or lesions noted Data 01/04/25 06:32 01/04/25 06:32 Micro: Microbiology 01/03/25 01:45 Blood Culture - Preliminary Blood NEGATIVE TO DATE 01/03/25 01:50 Blood Culture - Preliminary Blood NEGATIVE TO DATE A&P Assessment and plan (1) CKD (chronic kidney disease), stage V: CKD stage 5- his creatinine is stable and he is non-oliguric with stable lytes. His volume status is also improved with diuresis. there is no acute indicaton for renal replacement therapy at this time. acute hypoic respiratory failure- due to pneumonia and chf. improved with abx and diuretics anemia in ckd - his hgb is stable essential hypertension- bp is stable. dm2 PDMP PDMP Reviewed: Not Reviewed Consult Attestations Medical Necessity Statement: ckd stage 5 Time Spent in Patient Care: 50 minutes Coding Level of Care Code Acute Code for Chg Fwd Diagnoses CKD (chronic kidney disease), stage V N18.5
--- NOTE | 2025-01-04 14:16 | PC.NURSE ---
Discharged was discussed with patient and [employer] [employer] career discovery teacher. Medications and changed medications were discussed. Follow up appointments were discussed as well. Patients medications to in house pharmacy. Dr. Medina came in and talked with patient during discharge. Patient verbalized understanding to all discharge discussions.
--- NOTE | 2025-01-04 14:47 | PC.NURSE ---
Patient out at 1300. 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
== END 2025-01-04 13:00 | disposition home or self-care (01) | DRG 193 ==
LOC: ER 01:40 → ER IP 03:59 → MEDSURG 07:00
PROVIDERS: Admitting Provider Internal Medicine; Emergency Provider Emergency Medicine; PCP Family Medicine; Visit Provider Student in an Organized Health Care Education/Training Program
DX: J18.9 Pneumonia, unspecified organism (principal); I21.A1 Myocardial infarction type 2; J96.01 Acute respiratory failure with hypoxia; N17.0 Acute kidney failure with tubular necrosis; N18.5 Chronic kidney disease, stage 5; I13.2 Hypertensive heart and chronic kidney disease with heart failure and with stage 5 chronic kidney disease, or end stage renal disease; F31.81 Bipolar II disorder; I50.32 Chronic diastolic (congestive) heart failure; R79.89 Other specified abnormal findings of blood chemistry; L98.9 Disorder of the skin and subcutaneous tissue, unspecified; E11.22 Type 2 diabetes mellitus with diabetic chronic kidney disease; F43.12 Post-traumatic stress disorder, chronic; E11.42 Type 2 diabetes mellitus with diabetic polyneuropathy; D63.1 Anemia in chronic kidney disease; H54.8 Legal blindness, as defined in USA; E11.21 Type 2 diabetes mellitus with diabetic nephropathy; Z91.148 Patient's other noncompliance with medication regimen for other reason; Z79.899 Other long term (current) drug therapy; Z79.84 Long term (current) use of oral hypoglycemic drugs; Z79.4 Long term (current) use of insulin; Z99.2 Dependence on renal dialysis; Z85.828 Personal history of other malignant neoplasm of skin; Z89.429 Acquired absence of other toe(s), unspecified side; Z87.891 Personal history of nicotine dependence
CPT/HCPCS: 36415; 36416; 36430; 71045; 80048; 80053; 82728; 82962; 83540; 83550; 83605; 83735; 84100; 84145; 84484; 85025; 86140; 86850; 86900; 86920; 87040; 93005; 94640; 94760; 96365; 96372; 99285; J0696; J1644; J1815; J1940; J2543; J9999; P9016; Q0144

== ENCOUNTER 2025-01-06 07:42 | Emergency (ER) | payer MEDICARE, MEDICAID, SELFPAY ==
[2024-12-26 13:42] VITALS: BMI 29.2
[2025-01-06] VITALS (76 sets, daily range): BP systolic 116–188; BP diastolic 65–102; PULSE 69–99; RESP 10–25; TEMP 36.4; O2SAT 86–96; BMI 29.0
--- NOTE | 2025-01-06 08:24 | XRR_ITS ---
PROCEDURE INFORMATION: Exam: XR Chest Exam date and time: 01/06/2025 8:50 AM Age: 59 years old Clinical indication: Dyspnea TECHNIQUE: Imaging protocol: Radiologic exam of the chest. Views: 1 view. COMPARISON: CR (CHEST, ) 01/03/2025 12:55 AM FINDINGS: Lungs: Bilateral lower lobe patchy infiltrates, slightly worse in the left lower lung zone. Chronic interstitial pulmonary changes. Pleural spaces: Unremarkable. No pleural effusion. No pneumothorax. Heart/Mediastinum: Unremarkable. No cardiomegaly. Bones/joints: Mild degenerative disease of bilateral acromioclavicular joints. There are mild degenerative changes of the glenohumeral joint. The thoracic spine demonstrates mild degenerative changes at multiple levels. XR/XR chest 1V portable [id number] IMPRESSION: Worsening of the left lower lung zone airspace infiltrates.
--- NOTE | 2025-01-06 08:25 | ECG_ITS ---
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
[2025-01-06] MEDS: FUROsemide 10 mg/mL SDV 4mL 40 MG IVP ×2 (08:40→11:42)
[2025-01-06 08:41] LABS: Basophils # 0.1 10^3/uL (0.0-0.1); Basophils % 1.5 %; Eosinophils # 0.3 10^3/uL (0.0-0.8); Eosinophils % 5.4 %; Hematocrit 30.2 % (37-53); Lymphocytes # 1.2 10^3/uL (0.8-4.8); Lymphocytes % 20.4 %; Mean Corpuscular HGB Conc 30.8 g/dL (30-55); Mean Corpuscular Hemoglobin 28.4 pg (27-33); Mean Corpuscular Volume 92.1 fl (82-101); Mean Platelet Volume 9.4 fL (7.4-10.4); Monocytes # 0.7 10^3/uL (0.2-0.9); Monocytes % 11.4 %; Neutrophils # 3.64 10^3/uL (1.8-7.7); Neutrophils % 60.8 %; Nucleated Red Blood Cells % 0 %; Platelet Count 484 10^3/cmm (157-399); Red Blood Count 3.28 10^6/uL (3.85-5.65); Red Cell Distribution Width 13.9 % (12.1-15.1); White Blood Count 5.98 10^3/uL (3.29-11.43)
[2025-01-06 08:53] LABS: ABG PCO2 39.6 mmHg (35-45); ABG PH Result 7.34 (7.35-7.45); Arterial Blood Gas Hematocrit 26.9 % (42-52); Base Excess ABG -3.9 mmol/L (-2.0-2.0); Blood Gas Operator Identificat AMH; Blood Gas Sample Site Brachial, right; Blood Gas Sample Type Arterial; HCO3 ABG 21.5 mmol/L (22-26); Oxygen Device NC; PO2 ABG 56.3 mmHg (80.0-100.0); PO2 FiO2 Ratio Arterial Blood 140
[2025-01-06 09:00] LABS: Lactic Sepsis W/Reflex 0.7 mmol/L (0.5-2.2)
[2025-01-06 09:10] LABS: Alanine Aminotransferase 9 U/L (0-41); Albumin Level 3.3 g/dL (3.5-5.2); Alkaline Phosphatase 108 U/L (40-130); Aspartate Amino Transferase 15 U/L (0-40); Blood Urea Nitrogen 50 mg/dL (6-20); Calcium 7.7 mg/dL (8.5-10.5); Carbon Dioxide 20 mmol/L (22-29); Chloride 103 mmol/L (98-107); Creatinine Clr Calc Pharmacy 15.4296; Globulin 3.3 g/dL (1.3-4.6); Glomerular Filtration Rate 11.2 mL/min (90-130); Glucose 168 mg/dL (65-115); Magnesium 2.2 mg/dL (1.7-2.3); Osmolality Calculated 303 mOsm/kg (285-295); Sodium 138 mmol/L (136-145); Total Bilirubin 0.2 mg/dL (0.15-1.2); Total Protein 6.6 g/dL (6.6-8.7)
[2025-01-06 09:11] LABS: Troponin(5th) Baseline 253 ng/L (0-15)
[2025-01-06 09:13] LABS: NT Pro B Type Natriuretic Pept 13294 pg/mL (0-125)
--- NOTE | 2025-01-06 09:16 | PC.PHAR ---
Pt is legally blind and has his manager social services set up his pill landscape architect and planner for him. He states there are too many for him to remember. I made sure to ask if he took his morning medications and verify where he fills, so I could call and verify.
[2025-01-06 10:44] LABS: Troponin 5 2HR 243.3 ng/L (0-15); Troponin 5 2HR Delta -9.7 ABS# (0-10)
--- NOTE | 2025-01-06 11:11 | W.ED.SOB ---
HPI - SOB/Dyspnea General: Chief Complaint: Shortness of Breath/Dyspnea Stated Complaint: sob Time Seen by Provider: 01/06/25 08:11 History of Present Illness: HPI Narrative: This patient is a 59-year-old male presenting with shortness of breath. He says that he is scared. He has been in the hospital several times recently for shortness of breath and based on my review of the records, he has had new onset of renal failure and has developed a new oxygen requirement. He continues to have some cough. He has been using his oxygen at 5 liters per minute. After much review of the chart and asking a lot of questions to the patient, it doesn't appear that things are much different from when he was discharged a few days ago. He also apparently has been refused by several dialysis centers and healthcare facilities due to aggressive behavior. He was very calm and cooperative in the ED today. Related Data Home Medications ?Medication ?Instructions ?Recorded ?Confirmed pantoprazole 40 mg tablet,delayed 40 mg PO DAILY 12/06/24 01/09/25 release bupropion HCl 150 mg 24 hr tablet, 150 mg PO DAILY 12/07/24 01/09/25 extended release metoprolol succinate 50 mg 25 mg PO DAILY 12/07/24 01/09/25 tablet,extended release 24 hr lisinopril 40 mg tablet 40 mg PO DAILY 12/25/24 01/09/25 ezetimibe 10 mg tablet 10 mg PO DAILY 01/03/25 01/09/25 albuterol sulfate 2.5 mg/3 mL 2.5 mg inhalation Q4H PRN 01/06/25 01/09/25 (0.083 %) solution for nebulization Shortness Of Breath atorvastatin 80 mg tablet 80 mg PO QPM 01/06/25 01/09/25 furosemide 40 mg tablet See Rx Instructions .Route .COMPLEX 01/09/25 01/09/25 Previous Rx's ?Medication ?Instructions ?Recorded diabetic shoes w/ 3 inserts #1 ea 09/06/24 aspirin 81 mg tablet,delayed 81 mg PO DAILY #90 tabs 10/06/24 release clonidine HCl 0.1 mg tablet 0.1 mg PO DAILY PRN hypertensive 11/26/24 emergency #7 tabs divalproex 250 mg tablet,delayed 250 mg PO .7 pm #30 tabs 01/27/25 release (Depakote) amlodipine 10 mg tablet 10 mg PO DAILY #90 tabs 12/06/24 glipizide 5 mg tablet, extended 5 mg PO DAILY #30 tabs 12/25/24 release 24 hr hydrochlorothiazide 25 mg tablet 25 mg PO DAILY #90 tabs 12/25/24 hydralazine 10 mg tablet 10 mg PO TID PRN Anxiety #90 tabs 12/28/24 amoxicillin 875 mg-potassium 1 tab PO BID 5 days #10 tabs 01/04/25 clavulanate 125 mg tablet bumetanide 1 mg tablet See Rx Instructions PO BID #60 tabs 01/07/25 Allergies Allergy/AdvReac Type Severity Reaction Status Date / Time No Known Allergies Allergy Verified 01/07/25 14:01 PFSH ED PFSH: Medical History (Updated 01/10/25 @ 10:29 by Yung Powell MD) Type 2 diabetes mellitus Glomerulosclerosis Renal biopsy: Pathology: Nodular diabetic glomerulosclerosis class III, ATN. (HFpEF) heart failure with preserved ejection fraction Poor compliance with medication CKD (chronic kidney disease), stage V Influenza Acute on chronic renal failure Acute hypoxemic respiratory failure Community acquired pneumonia HALIE (acute kidney injury) Non-STEMI (non-ST elevated myocardial infarction) Hyperglycemia Hammertoe of right foot Callus of heel Blurred vision CKD (chronic kidney disease) stage V requiring chronic dialysis Nicotine dependence, cigarettes, uncomplicated Bereavement Mother in February 2024 Cannabis use disorder, moderate, dependence Chronic post-traumatic stress disorder Bipolar II disorder Impaired visual perception Psychiatric care Anemia 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 Social History Smoking and tobacco/nicotine status: former use of tobacco/nicotine Alcohol intake: former Adopted: No Caregiver/support person: No Lives independently: Yes Household members: none Housing: Apartment Marital status: Number of children: 1 Highest education level completed: High School Graduate service: No Current occupational status: disabled Current occupational exposures/hazards: No Pets and animals: Yes Pets & animals: cat(s) and dog(s) Leisure activites: other Leisure activities details: play music Sexually active: No Do you think of yourself as: Straight/Heterosexual Current gender identity: Male Carmita/Religious: Protestant Special carmita needs: No Agree to transfusion: Yes Physical Exam Const: COMMON NORMALS: no acute distress, patient oriented x3, no limitations and alert GENERAL APPEARANCE: cooperative and anxious HENMT: HEAD & SCALP: normal to inspection FACE & SINUS: normal facial exam Eye: GENERAL EYE: appearance normal, both eyes and all related structures Neck/C-Spine: COMMON NORMALS: supple, no meningeal signs and no JVD Chest: COMMONS NORMALS: normal inspection of the chest Resp: COMMON NORMALS: No use of accessory muscles EFFORT & INSPECTION: Yes able to speak in complete sentences AUSCULTATION: rales Cardio: COMMON NORMALS: no JVD, regular rate, regular rhythm and No murmurs present (Cardio) RATE: regular rate RHYTHM: regular rhythm GI: COMMON NORMALS: Normal to inspection, nondistended, normoactive bowel sounds present, Soft to palpation and non-tender INSPECTION: Yes normal to inspection AUSCULTATION: Yes normoactive bowel sounds PALPATION: Yes Soft to palpation Back/Pelvis: COMMON NORMALS: thoracic and lumbar spine normal to inspection Extremity: COMMON NORMALS: normal to inspection NARRATIVE EXTREMITY EXAM: pedal edema bilaterally Neuro: COMMON NORMALS: patient oriented x3, moves all extremities, no focal motor deficits and no sensory deficits noted SENSORIUM/ORIENTATION: Yes alert MENINGEAL SIGNS: Yes no meningeal signs Psych: COMMON NORMALS: mental status grossly normal, cooperative and normal affect Skin: COMMON NORMALS: no rashes or lesions noted and turgor normal GENERAL SKIN EXAM: no rashes or lesions noted and turgor normal Course Vital Signs: Vital signs: Vital Signs Temperature 97.6 F 01/06/25 07:43 Pulse Rate 86 01/06/25 15:46 Respiratory Rate 21 H 01/06/25 15:35 Blood Pressure 158/66 01/06/25 15:46 Pulse Oximetry 95 01/06/25 15:46 Oxygen Delivery Me thod Nasal Cannula 01/06/25 15:35 Oxygen Flow Rate 5 01/06/25 15:35 MDM - SOB/Dyspnea Medical Decision Making Extensive review of prior charts, discussion with two of the hospitalists and the patient. He is in the same condition as when he was discharged and has an outpatient appointment tomorrow that he should not miss - as he needs this to set up outpatient care for his myriad new problems. He tells me that he will go to that appointment and that his director of casework services is going with him. Lab Data 01/06/25 08:36 01/06/25 08:36 Labs/Radiology: Radiology Impressions Chest X-Ray 01/06/25 08:24 IMPRESSION: Worsening of the left lower lung zone airspace infiltrates. Laboratory Results WBC 5.98 10^3/uL (3.29-11.43) 01/06/25 08:36 RBC 3.28 10^6/uL (3.85-5.65) L 01/06/25 08:36 Hgb 9.30 g/dL (11.27-16.99) L 01/06/25 08:36 Hct 30.2 % (37-53) L 01/06/25 08:36 MCV 92.1 fl (82-101) 01/06/25 08:36 MCH 28.4 pg (27-33) 01/06/25 08:36 MCHC 30.8 g/dL (30-55) 01/06/25 08:36 RDW 13.9 % (12.1-15.1) 01/06/25 08:36 Plt Count 484 10^3/cmm (157-399) H 01/06/25 08:36 MPV 9.4 fL (7.4-10.4) 01/06/25 08:36 Neut % (Auto) 60.8 % 01/06/25 08:36 Lymph % (Auto) 20.4 % 01/06/25 08:36 [place] % (Auto) 11.4 % 01/06/25 08:36 Eos % (Auto) 5.4 % 01/06/25 08:36 Baso % (Auto) 1.5 % 01/06/25 08:36 Neut # (Auto) 3.64 10^3/uL (1.8-7.7) 01/06/25 08:36 Lymph # (Auto) 1.2 10^3/uL (0.8-4.8) 01/06/25 08:36 [place] # (Auto) 0.7 10^3/uL (0.2-0.9) 01/06/25 08:36 Eos # (Auto) 0.3 10^3/uL (0.0-0.8) 01/06/25 08:36 Baso # (Auto) 0.1 10^3/uL (0.0-0.1) 01/06/25 08:36 Nucleated RBC % (auto) 0 % 01/06/25 08:36 Nucleated RBCs # 0.0 /100WBC 01/06/25 08:36 Specimen Type Arterial 01/06/25 08:42 Sample Site Brachial, right 01/06/25 08:42 ABG pH 7.34 (7.35-7.45) L 01/06/25 08:42 ABG pCO2 39.6 mmHg (35-45) 01/06/25 08:42 ABG pO2 56.3 mmHg (80.0-100.0) L 01/06/25 08:42 ABG PO2/FiO2 Ratio 140 01/06/25 08:42 ABG HCO3 21.5 mmol/L (22-26) L 01/06/25 08:42 ABG Base Excess -3.9 mmol/L (-2.0-2.0) L 01/06/25 08:42 Dl Test N/a 01/06/25 08:42 Hematocrit 26.9 % (42-52) L 01/06/25 08:42 O2 Delivery Device Nc 01/06/25 08:42 O2 Liters/Min 5.0 % 01/06/25 08:42 FiO2 40.0 % 01/06/25 08:42 Merchandise Clerk ID Amh 01/06/25 08:42 Sodium 138 mmol/L (136-145) 01/06/25 08:36 Potassium 5.0 mmol/L (3.5-5.1) 01/06/25 08:36 Chloride 103 mmol/L (98-107) 01/06/25 08:36 Carbon Dioxide 20 mmol/L (22-29) L 01/06/25 08:36 Anion Gap 20.0 (5-19) H 01/06/25 08:36 BUN 50 mg/dL (6-20) H 01/06/25 08:36 Creatinine 5.3 mg/dL (0.7-1.2) H 01/06/25 08:36 GFR Calculation 11.2 mL/min (90-130) L 01/06/25 08:36 Glucose 168 mg/dL (65-115) H 01/06/25 08:36 Calculated Osmolality 303 mOsm/kg (285-295) H 01/06/25 08:36 Lactic Acid 0.7 mmol/L (0.5-2.2) 01/06/25 08:36 Calcium 7.7 mg/dL (8.5-10.5) L 01/06/25 08:36 Magnesium 2.2 mg/dL (1.7-2.3) 01/06/25 08:36 Total Bilirubin 0.2 mg/dL (0.15-1.2) 01/06/25 08:36 AST 15 U/L (0-40) 01/06/25 08:36 ALT 9 U/L (0-41) 01/06/25 08:36 Alkaline Phosphatase 108 U/L (40-130) 01/06/25 08:36 Troponin T Baseline 253 ng/L (0-15) H* 01/06/25 08:36 Troponin T 120 Minute 243.3 ng/L (0-15) H 01/06/25 10:22 Delta Troponin T -9.7 ABS# (0-10) L 01/06/25 10:22 Troponin T Hi Sens 6Hr 251.8 ng/L (0-15) H 01/06/25 14:13 Troponin T Hi Sens 6Hr Delta -1.2 ng/L (0-12) L 01/06/25 14:13 NT-Pro-B Natriuret Pep 72791 pg/mL (0-125) H 01/06/25 08:36 Total Protein 6.6 g/dL (6.6-8.7) 01/06/25 08:36 Albumin 3.3 g/dL (3.5-5.2) L 01/06/25 08:36 Globulin 3.3 g/dL (1.3-4.6) 01/06/25 08:36 All radiology interpretation(s) finalized by discharge Discharge Plan Discharge Patient Disposition: Home Clinical Impression: Shortness of breath, CKD (chronic kidney disease), stage V, Poor compliance with medication, (HFpEF) heart failure with preserved ejection fraction, Edema, Anxiety Condition: Stable Prescriptions: No Action (DME) diabetic shoes w/ 3 inserts See Rx Instructions .Route .MEDSUPPLY Qty: 1 0RF Rx Instructions: As directed by HOME w/Right toe filler pantoprazole 40 mg tablet,delayed release (DR/EC) 40 mg PO DAILY amlodipine 10 mg tablet 10 mg PO DAILY Qty: 90 1RF lisinopril 40 mg tablet 40 mg PO DAILY glipizide 5 mg tablet extended release 24hr 5 mg PO DAILY Qty: 30 0RF hydrochlorothiazide 25 mg tablet 25 mg PO DAILY Qty: 90 0RF bumetanide 1 mg tablet See Rx Instructions PO BID Qty: 60 0RF Rx Instructions: take TWO tablets qAM and ONE tablet qNOON orally divalproex [Depakote] 250 mg tablet,delayed release (DR/EC) 250 mg PO .7 pm Qty: 30 2RF clonidine HCl 0.1 mg tablet 0.1 mg PO DAILY PRN (Reason: hypertensive emergency) Qty: 7 1RF Rx Instructions: May take one tablet daily as needed for blood pressure systolic 160 or over hydralazine 10 mg tablet 10 mg PO TID PRN (Reason: Anxiety) Qty: 90 0RF aspirin 81 mg Tablet,Delayed Release (Dr/Ec) 81 mg PO DAILY Qty: 90 0RF atorvastatin 80 mg tablet 80 mg PO QPM albuterol sulfate 2.5 mg /3 mL (0.083 %) solution for nebulization 2.5 mg inhalation Q4H PRN (Reason: Shortness Of Breath) furosemide 40 mg tablet See Rx Instructions .ROUTE .COMPLEX Rx Instructions: TAKE ONE TABLET BY MOUTH TWICE DAILY FOR 7 DAYS THEN ONE DAILY IN THE MORNING FOR 7 DAYS metoprolol succinate 50 mg tablet extended release 24 hr 25 mg PO DAILY bupropion HCl 150 mg tablet extended release 24 hr 150 mg PO DAILY ezetimibe 10 mg tablet 10 mg PO DAILY amoxicillin-pot clavulanate 875-125 mg tablet 1 tab PO BID 5 Days Qty: 10 0RF Discharge Orders: Discharge ED (Routine); Ordered 01/06/25 Ordered By: Tabitha Stevens Referrals: Pierce Justice MD [Primary Care Provider] - Patient Instructions: Opioid Safety, Pain Management Print Language: Persian Coding Level of Care Code ED Auto Transmission Specialist for Sandro Foster
--- NOTE | 2025-01-06 12:32 | ECG_ITS ---
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: : 1965 Requested By: Tabitha Lewis Order Number: [id number] Miles MD: АНДРЕЙ LOMBARDI Measurements Intervals [place] Rate: 77 P: -87 NE: 149 QRS: 268 QRSD: 85 T: -30 QT: 412 QTc: 468 Interpretive Statements ECTOPIC ATRIAL RHYTHM RIGHT AXIS DEVIATION [QRS AXIS > 100] ABNORMAL QRS-T ANGLE [QRS-T AXIS DIFFERENCE > 60] Compared to ECG 01/06/2025 09:28:03 Ectopic atrial rhythm now present Right-axis deviation now present Sinus rhythm no longer present Electronically Signed On 01-07-2025 22:32:06 CDT by АНДРЕЙ LOMBARDI [email or web address] [email or web address]
[2025-01-06 14:44] LABS: Troponin 5 6HR Delta -1.2 ng/L (0-12)
[2025-01-06 14:45] LABS: Troponin 5 6HR 251.8 ng/L (0-15)
== END 2025-01-06 15:45 | disposition home or self-care (01) ==
PROVIDERS: Emergency Provider Emergency Medicine; PCP Family Medicine
DX: R06.02 Shortness of breath (principal); E11.22 Type 2 diabetes mellitus with diabetic chronic kidney disease; I13.2 Hypertensive heart and chronic kidney disease with heart failure and with stage 5 chronic kidney disease, or end stage renal disease; N18.5 Chronic kidney disease, stage 5; I50.30 Unspecified diastolic (congestive) heart failure; R60.0 Localized edema; F41.9 Anxiety disorder, unspecified; Z87.891 Personal history of nicotine dependence
CPT/HCPCS: 36415; 36600; 71045; 80053; 82803; 83605; 83735; 83880; 84484; 85025; 93005; 96374; 96376; 99285; J1940

== ENCOUNTER 2025-01-08 15:53 | Inpatient (IN) | payer MEDICARE, MEDICAID, SELFPAY ==
[2024-12-26 13:42] VITALS: BMI 29.2
[2025-01-08] VITALS (13 sets, daily range): BP systolic 145–169; BP diastolic 79–96; PULSE 85–100; RESP 16–20; TEMP 36.4–36.6; O2SAT 90–95; BMI 25.8
--- NOTE | 2025-01-08 15:57 | XRR_ITS ---
PROCEDURE INFORMATION: Exam: XR Chest Exam date and time: 01/08/2025 4:22 PM Age: 59 years old Clinical indication: Cardiovascular condition or disease; Congestive heart failure (chf); Cause unknown; Type unknown; Additional info: Edema/chf TECHNIQUE: Imaging protocol: Radiologic exam of the chest. Views: 1 view. COMPARISON: CR (CHEST, ) 01/06/2025 8:50 AM FINDINGS: Lungs: Opacities in the left mid lung field and left lower lobe and to a lesser extent the right lower lobe with small left-sided pleural effusion. Pleural spaces: See Lungs finding. Heart/Mediastinum: Unremarkable. No cardiomegaly. Bones/joints: Unremarkable. XR/XR chest 1V portable [id number] IMPRESSION: Opacities in the left mid lung field and left lower lobe and to a lesser extent the right lower lobe with small left-sided pleural effusion.
[2025-01-08 16:52] LABS: Basophils # 0.1 10^3/uL (0.0-0.1); Basophils % 1.5 %; Eosinophils # 0.2 10^3/uL (0.0-0.8); Eosinophils % 3.3 %; Hematocrit 31.6 % (37-53); Lymphocytes # 1.2 10^3/uL (0.8-4.8); Lymphocytes % 17.3 %; Mean Corpuscular HGB Conc 30.7 g/dL (30-55); Mean Corpuscular Hemoglobin 29.1 pg (27-33); Mean Corpuscular Volume 94.9 fl (82-101); Mean Platelet Volume 9.9 fL (7.4-10.4); Monocytes # 0.7 10^3/uL (0.2-0.9); Monocytes % 10.4 %; Neutrophils # 4.52 10^3/uL (1.8-7.7); Neutrophils % 67.2 %; Nucleated Red Blood Cells % 0 %; Platelet Count 483 10^3/cmm (157-399); Red Blood Count 3.33 10^6/uL (3.85-5.65); Red Cell Distribution Width 14.2 % (12.1-15.1); White Blood Count 6.72 10^3/uL (3.29-11.43)
--- NOTE | 2025-01-08 17:15 | ED_ITS ---
HPI - Extremity Problem 2 General: Chief complaint: Extremity Problem,Nontraumatic Stated complaint: L and R leg swelling Time Seen by Provider: 01/08/25 16:24 Source: patient Mode of arrival: ambulatory Limitations: no limitations History of Present Illness: 59-year-old male who has chronic kidney disease heart failure is not currently on dialysis. Patient recently been mated here for pulmonary edema he has been on Lasix he states over the last 2 to 3 days been having increasing swelling in his legs and more shortness of breath he denies any chest pain he has had pain in his legs. Denies any fevers. Associated symptoms: Deny chest pain, fever(s) or rash Related Data Home Medications ?Medication ?Instructions ?Recorded ?Confirmed pantoprazole 40 mg tablet,delayed 40 mg PO DAILY 12/0601/07/25 release bupropion HCl 150 mg 24 hr tablet, 150 mg PO DAILY 05/2401/07/25 extended release metoprolol succinate 50 mg 25 mg PO DAILY 12/07/2408/24 tablet,extended release 24 hr lisinopril 40 mg tablet 40 mg PO DAILY 12/25/2412/29 ezetimibe 10 mg tablet 10 mg PO DAILY 01/03/2512/29 albuterol sulfate 2.5 mg/3 mL 2.5 mg inhalation Q4H ID N 01/06/25 01/07/25 (0.083 %) solution for nebulization Shortness Of Breat h atorvastatin 80 mg tablet 80 mg PO QPM 01/06/25 Previous Rx's ?Medication ?Instructions ?Recorded diabetic shoes w/ 3 inserts #1 ea 09/06/24 aspirin 81 mg tablet,delayed 81 mg PO DAILY #90 tabs 1 12/07/23 release clonidine HCl 0.1 mg tablet 0.1 mg PO DAILY PRN hypert ensive 11/26/24 emergency #7 tabs divalproex 250 mg tablet,delayed 250 mg PO .7 pm #30 t abs 11/26/24 release (Depakote) amlodipine 10 mg tablet 10 mg PO DAILY #90 tabs 04/24 glipizide 5 mg tablet, extended 5 mg PO DAILY #30 tabs 12/25/24 release 24 hr hydrochlorothiazide 25 mg tablet 25 mg PO DAILY #90 ta bs 12/25/24 hydralazine 10 mg tablet 10 mg PO TID PRN Anxiety #90 tabs 12/28/24 amoxicillin 875 mg-potassium 1 tab PO BID 5 days #10 t abs 01/04/25 clavulanate 125 mg tablet bumetanide 1 mg tablet See Rx Instructions PO BID # 60 tabs 01/07/25 Allergies Allergy/AdvReac Type Severity Reaction Status Date / Time No Known Allergies Allergy Verified 01/07/25 14:01 Review of Systems 2 Const: Denies: fever(s), chills, body aches or change in appetite ENMT: Denies: throat pain or dental pain Card: Denies: chest pain Resp: Denies: dyspnea GI: Denies: abdominal pain, nausea, vomiting or diarrhea Musc: Reports: extremity pain and extremity swelling; Denies: neck pain or back pain Skin/Breast: Denies: rash Neuro: Denies: headache(s) PFSH ED 2 PFSH: Medical History (Updated 01/08/25 @ 18:27 by Roxann Mac MD) Type 2 diabetes mellitus Glomerulosclerosis Renal biopsy: Pathology: Nodular diabetic glomerulosclerosis class III, ATN. (HFpEF) heart failure with preserved eje ction fraction Poor compliance with medication CKD (chronic kidney disease), stage V Influenza Acute on chronic renal failure Acute hypoxemic respiratory failure Community acquired pneumonia HALIE (acute kidney injury) Non-STEMI (non-ST elevated myocardial infarction) Hyperglycemia Hammertoe of right foot Callus of heel Blurred vision CKD (chronic kidney disease) stage V requiring chronic dialysis Nicotine dependence, cigarettes, uncomplicated Bereavement Mother in February 2024 Cannabis use disorder, moderate, dependence Chronic post-traumatic stress disorder Bipolar II disorder Impaired visual perception Psychiatric care Anemia 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 Social History Smoking and tobacco/nicotine status: former use of tobacco/nicotine Alcohol intake: former Adopted: No Caregiver/support person: No Lives independently: Yes Household members: none Housing: Apartment Marital status: Number of children: 1 Highest education level completed: High School Graduate service: No Current occupational status: disabled Current occupational exposures/hazards: No Pets and animals: Yes Pets & animals: cat(s) and dog(s) Leisure activites: other Leisure activities details: play music Sexually active: No Do you think of yourself as: Straight/Heterosexual Current gender identity: Male Carmita/Caodaism: Christianity Special carmita needs: No Agree to transfusion: Yes Physical Exam 2 Const: COMMON NORMALS: patient oriented x3 HENMT: COMMON NORMALS: normocephalic and atraumatic HEAD & SCALP: n ormocephalic and atraumatic Eye: COMMON NORMALS: conjunctivae normal CONJUNCTIVA: Yes conjunctivae normal Neck/C-Spine: COMMON NORMALS: full ROM and supple Chest: COMMONS NORMALS: normal inspection of the chest Resp: COMMON NORMALS: No retractions and No use of accessory muscles A USCULTATION: rales Cardio: COMMON NORMALS: regular rate, regular rhythm and No murmurs present (Cardio) RATE: regular rate RHYTHM: regular rhythm GI: COMMON NORMALS: Normal to inspection, nondistended, normoactive bowel sounds present, Soft to palpation, non-tender and no masses PALPATION: Yes Soft to palpation Extremity: COMMON NORMALS: full ROM NARRATIVE EXTREMITY EXAM: 2+ edema distal pulses intact Neuro: COMMON NORMALS: patient oriented x3, moves all extremities and no focal motor deficits Psych: COMMON NORMALS: mental status grossly normal, Normal thought process present and cooperative THOUGHT PROCESS: Normal thought process present Skin: COMMON NORMALS: no rashes or lesions noted and no wounds GENERAL SKIN EXAM: no rashes or lesions noted Course 2 Vital Signs: Vital signs: Vital Signs Temperature 97.6 F 01/08/25 16:06 Pulse Rate 97 01/08/25 18:02 Respiratory Rate 20 H 01/08/25 17:59 Blood Pressure 162/86 01/08/25 18:02 Pulse Oximetry 92 01/08/25 18:02 Oxygen Delivery Me thod Nasal Cannula 01/08/25 18:02 Oxygen Flow Rate 5 01/08/25 18:02 MDM - Extremity (Nontraumatic) Medical Decision Making Patient presents here with leg edema is also had some increased shortness of breath x-ray shows worsening pulmonary edema will admit for volume overload for diuresis. Medical Records I reviewed the patient's medical records. Lab Data I reviewed the patient's lab results. 01/08/25 16:17 01/08/25 16:17 Radiology Impressions Chest X-Ray 01/08/25 15:57 IMPRESSION: Opacities in the left mid lung field and left lower lobe and to a lesser extent the right lower lobe with small left-sided pleural effusion. Laboratory Results WBC 6.72 10^3/uL (3.29-11.43) 01/08/25 16:17 RBC 3.33 10^6/uL (3.85-5.65) L 01/08/25 16:17 Hgb 9.70 g/dL (11.27-16.99) L 01/08/25 16:17 Hct 31.6 % (37-53) L 01/08/25 16:17 MCV 94.9 fl (82-101) 01/08/25 16:17 MCH 29.1 pg (27-33) 01/08/25 16:17 MCHC 30.7 g/dL (30-55) 01/08/25 16:17 RDW 14.2 % (12.1-15.1) 01/08/25 16:17 Plt Count 483 10^3/cmm (157-399) H 01/08/25 16:17 MPV 9.9 fL (7.4-10.4) 01/08/25 16:17 Neut % (Auto) 67.2 % 01/08/25 16:17 Lymph % (Auto) 17.3 % 01/08/25 16:17 [place] % (Auto) 10.4 % 01/08/25 16:17 Eos % (Auto) 3.3 % 01/08/25 16:17 Baso % (Auto) 1.5 % 01/08/25 16:17 Neut # (Auto) 4.52 10^3/uL (1.8-7.7) 01/08/25 16:17 Lymph # (Auto) 1.2 10^3/uL (0.8-4.8) 01/08/25 16:17 [place] # (Auto) 0.7 10^3/uL (0.2-0.9) 01/08/25 16:17 Eos # (Auto) 0.2 10^3/uL (0.0-0.8) 01/08/25 16:17 Baso # (Auto) 0.1 10^3/uL (0.0-0.1) 01/08/25 16:17 Nucleated RBC % (auto) 0 % 01/08/25 16:17 Nucleated RBCs # 0.0 /100WBC 01/08/25 16:17 Sodium 139 mmol/L (136-145) 01/08/25 16:17 Potassium 5.4 mmol/L (3.5-5.1) H 01/08/25 16:17 Chloride 104 mmol/L (98-107) 01/08/25 16:17 Carbon Dioxide 20 mmol/L (22-29) L 01/08/25 16:17 Anion Gap 20.4 (5-19) H 01/08/25 16:17 BUN 47 mg/dL (6-20) H 01/08/25 16:17 Creatinine 6.0 mg/dL (0.7-1.2) H* 01/08/25 16:17 GFR Calculation 9.7 mL/min (90-130) L 01/08/25 16:17 Glucose 101 mg/dL (65-115) 01/08/25 16:17 Calculated Osmolality 300 mOsm/kg (285-295) H 01/08/25 16:17 Calcium 7.9 mg/dL (8.5-10.5) L 01/08/25 16:17 Total Bilirubin 0.2 mg/dL (0.15-1.2) 01/08/25 16:17 AST 17 U/L (0-40) 01/08/25 16:17 ALT 12 U/L (0-41) 01/08/25 16:17 Alkaline Phosphatase 111 U/L (40-130) 01/08/25 16:17 NT-Pro-B Natriuret Pep 70151 pg/mL (0-125) H 01/08/25 16:17 Total Protein 8.0 g/dL (6.6-8.7) 01/08/25 16:17 Albumin 3.5 g/dL (3.5-5.2) 01/08/25 16:17 Globulin 4.5 g/dL (1.3-4.6) 01/08/25 16:17 All radiology interpretation(s) finalized by discharge EKG Data EKG 1: I personally reviewed and interpreted this EKG as follows: EKG interpretation date: 01/08/25 EKG interpretation time: 17:18 Interpretation: nsr hr [address] elevation qrs 84 qtc 417 Discharge Plan Discharge Patient Disposition: Admitted As Inpatient Clinical Impression: CKD (chronic kidney disease), stage V, Volume overload, Shortness of breath Condition: Stable Prescriptions: No Action (DME) diabetic shoes w/ 3 inserts See Rx Instructions .Route .MEDSUPPLY Qty: 1 0RF Rx Instructions: As directed by HOME w/Right toe filler pantoprazole 40 mg tablet,delayed release (DR/EC) 40 mg PO DAILY amlodipine 10 mg tablet 10 mg PO DAILY Qty: 90 1RF lisinopril 40 mg tablet 40 mg PO DAILY glipizide 5 mg tablet extended release 24hr 5 mg PO DAILY Qty: 30 0RF hydrochlorothiazide 25 mg tablet 25 mg PO DAILY Qty: 90 0RF bumetanide 1 mg tablet See Rx Instructions PO BID Qty: 60 0RF Rx Instructions: take TWO tablets qAM and ONE tablet qNOON orally divalproex [Depakote] 250 mg tablet,delayed release (DR/EC) 250 mg PO .7 pm Qty: 30 2RF clonidine HCl 0.1 mg tablet 0.1 mg PO DAILY PRN (Reason: hypertensive emergency) Qty: 7 1RF Rx Instructions: May take one tablet daily as needed for blood pressure systolic 160 or over hydralazine 10 mg tablet 10 mg PO TID PRN (Reason: Anxiety) Qty: 90 0RF aspirin 81 mg Tablet,Delayed Release (Dr/Ec) 81 mg PO DAILY Qty: 90 0RF atorvastatin 80 mg tablet 80 mg PO QPM albuterol sulfate 2.5 mg /3 mL (0.083 %) solution for nebulization 2.5 mg inhalation Q4H PRN (Reason: Shortness Of Breath) metoprolol succinate 50 mg tablet extended release 24 hr 25 mg PO DAILY bupropion HCl 150 mg tablet extended release 24 hr 150 mg PO DAILY ezetimibe 10 mg tablet 10 mg PO DAILY amoxicillin-pot clavulanate 875-125 mg tablet 1 tab PO BID 5 Days Qty: 10 0RF Referrals: Pierce Justice MD [Primary Care Provider] - Print Language: Armenian Coding Level of Care Code ED Medicine Tech for Gavinog Kristin
--- NOTE | 2025-01-08 17:18 | ECG_ITS ---
[employer] Test Date: 2025-01-08 Pat Name: Joseph Baker Department: Room: Gender: Male Monomer Recovery Operator: : [id number] Requested By: Roxann Mac Order Number: [id number] Miles MD: Toby Saenz M.D. Measurements Intervals [place] Rate: 91 P: 54 DE: 130 QRS: 26 QRSD: 84 T: 13 QT: 369 QTc: 454 Interpretive Statements SINUS RHYTHM NONSPECIFIC T-WAVE ABNORMALITY Compared to ECG 01/06/2025 12:32:46 T-wave abnormality now present Ectopic atrial rhythm no longer present Right-axis deviation no longer present Electronically Signed On 01-11-2025 19:14:29 CDT by Toby Saenz M.D. [email or web address]
[2025-01-08 17:40] LABS: Alanine Aminotransferase 12 U/L (0-41); Albumin Level 3.5 g/dL (3.5-5.2); Alkaline Phosphatase 111 U/L (40-130); Anion Gap 20.4 (5-19); Aspartate Amino Transferase 17 U/L (0-40); Blood Urea Nitrogen 47 mg/dL (6-20); Calcium 7.9 mg/dL (8.5-10.5); Carbon Dioxide 20 mmol/L (22-29); Chloride 104 mmol/L (98-107); Creatinine Clr Calc Pharmacy 12.9322; Globulin 4.5 g/dL (1.3-4.6); Glomerular Filtration Rate 9.7 mL/min (90-130); Glucose 101 mg/dL (65-115); NT Pro B Type Natriuretic Pept 14076 pg/mL (0-125); Osmolality Calculated 300 mOsm/kg (285-295); Potassium 5.4 mmol/L (3.5-5.1); Sodium 139 mmol/L (136-145); Total Bilirubin 0.2 mg/dL (0.15-1.2)
[2025-01-08] MEDS: ondansetron 2 mg/ML SDV 2 mL 4 MG IVP (17:58)
[2025-01-08] MEDS: morphine 4 mg/mL SDV 1 mL IVP (17:59)
[2025-01-08] MEDS: FUROsemide 10 mg/mL SDV 10mL 60 MG IVP (18:01)
--- NOTE | 2025-01-08 18:06 | PM.HP ---
Providers/Chief Complaint Primary Care Provider: Pierce Justice MD Chief Complaint: L and R leg swelling History of Present Illness Joseph Baker is a 59 year old male with a past medical history significant for chronic kidney disease stage V, nodular diabetic glomerulosclerosis class III ATN, hypertension, diabetes mellitus, and multiple other comorbidities who presents emergency department with shortness of breath. Reports exertion worsens symptoms. Rest improves. He notes that he was just discharged couple days ago and since that time symptoms have progressively worsened. He reports that he was not on oxygen prior to that admission and he was sent home on 5 L which she is just now adjusting to. Endorses associated productive cough but feels like the cough is improving with treatment. Denies fevers or chills. Endorses generalized malaise and fatigue. Review of Systems Narrative: A complete review of systems was obtained and is negative except as stated in HPI. Medications/Allergies Home Medications ?Medication ?Instructions ?Recorded ?Confirmed ?Last Taken ?Type diabetic shoes w/ 3 inserts #1 ea 09/06/24 01/07/25 Unknown Rx aspirin 81 mg tablet,delayed 81 mg PO DAILY #90 tabs 10/06/24 01/07/25 01/06/25 Rx release clonidine HCl 0.1 mg tablet 0.1 mg PO DAILY PRN hypertensive 11/26/24 01/07/25 Unknown Rx emergency #7 tabs divalproex 250 mg tablet,delayed 250 mg PO .7 pm #30 tabs 11/26/24 01/07/25 01/05/25 Rx release (Depakote) amlodipine 10 mg tablet 10 mg PO DAILY #90 tabs 12/06/24 01/07/25 01/06/25 Rx pantoprazole 40 mg tablet,delayed 40 mg PO DAILY 12/06/24 01/07/25 01/06/25 History release bupropion HCl 150 mg 24 hr tablet, 150 mg PO DAILY 12/07/24 01/07/25 01/06/25 History extended release metoprolol succinate 50 mg 25 mg PO DAILY 12/07/24 01/07/25 01/06/25 History tablet,extended release 24 hr glipizide 5 mg tablet, extended 5 mg PO DAILY #30 tabs 12/25/24 01/07/25 01/06/25 Rx release 24 hr hydrochlorothiazide 25 mg tablet 25 mg PO DAILY #90 tabs 12/25/24 01/07/25 01/06/25 Rx lisinopril 40 mg tablet 40 mg PO DAILY 12/25/24 01/07/25 01/06/25 History hydralazine 10 mg tablet 10 mg PO TID PRN Anxiety #90 tabs 12/28/24 01/07/25 01/02/25 Rx ezetimibe 10 mg tablet 10 mg PO DAILY 01/03/25 01/07/25 01/06/25 History amoxicillin 875 mg-potassium 1 tab PO BID 5 days #10 tabs 01/04/25 01/07/25 01/06/25 Rx clavulanate 125 mg tablet albuterol sulfate 2.5 mg/3 mL 2.5 mg inhalation Q4H PRN 01/06/25 01/07/25 Unknown History (0.083 %) solution for nebulization Shortness Of Breath atorvastatin 80 mg tablet 80 mg PO QPM 01/06/25 01/07/25 01/05/25 History bumetanide 1 mg tablet See Rx Instructions PO BID #60 tabs 01/07/25 01/07/25 Unknown Rx Allergies Allergy/AdvReac Type Severity Reaction Status Date / Time No Known Allergies Allergy Verified 01/07/25 14:01 PFSH Acute PFSH: Medical History (Updated 01/08/25 @ 18:27 by Roxann Mac MD) Type 2 diabetes mellitus Glomerulosclerosis Renal biopsy: Pathology: Nodular diabetic glomerulosclerosis class III, ATN. (HFpEF) heart failure with preserved ejection fraction Poor compliance with medication CKD (chronic kidney disease), stage V Influenza Acute on chronic renal failure Acute hypoxemic respiratory failure Community acquired pneumonia HALIE (acute kidney injury) Non-STEMI (non-ST elevated myocardial infarction) Hyperglycemia Hammertoe of right foot Callus of heel Blurred vision CKD (chronic kidney disease) stage V requiring chronic dialysis Nicotine dependence, cigarettes, uncomplicated Bereavement Mother in February 2024 Cannabis use disorder, moderate, dependence Chronic post-traumatic stress disorder Bipolar II disorder Impaired visual perception Psychiatric care Anemia 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 Social History Smoking and tobacco/nicotine status: former use of tobacco/nicotine Alcohol intake: former Adopted: No Caregiver/support person: No Lives independently: Yes Household members: none Housing: Apartment Marital status: Number of children: 1 Highest education level completed: High School Graduate service: No Current occupational status: disabled Current occupational exposures/hazards: No Pets and animals: Yes Pets & animals: cat(s) and dog(s) Leisure activites: other Leisure activities details: play music Sexually active: No Do you think of yourself as: Straight/Heterosexual Current gender identity: Male Carmita/Latter-Day: Yazdanism Special carmita needs: No Agree to transfusion: Yes Vitals/I&O/Wt Last Vital Signs Temp 97.6 F 01/08/25 16:06 Pulse 97 01/08/25 18:02 Resp 20 H 01/08/25 17:59 BP 162/86 01/08/25 18:02 Pulse Ox 92 01/08/25 18:02 O2 Del Method Nasal Cannula 01/08/25 18:02 O2 Flow Rate 5 01/08/25 18:02 Weight last 48 hrs Weight 72.575 kg Physical Exam Narrative: General: Patient is awake and alert. Conversational. Head: Normocephalic. Atraumatic. EOM intact. Reduced vision. Neck: Slightly elevated JVD. Cardiovascular: RRR. No gallops. No murmurs. 2+ pitting edema bilateral lower extremities. Lungs: Breath sounds are manage bilateral bases. Dependent crackles bilaterally. Increased work of breathing. Tachypnea. On supplemental oxygen support. Skin: No jaundice. No rashes. Abdomen: Normal bowel sounds, abdomen soft and nontender. Genito Urinary: Genital exam not performed since complaints not related. Rectal: Rectal exam not performed since no symptoms indicated blood loss. Extremities: No cyanosis or clubbing. Musculoskeletal: No swollen or erythematous joints. Neurological: Moves all 4 extremities. No myoclonus. Data 01/08/25 16:17 01/08/25 16:17 A&P Assessment and plan (1) CKD (chronic kidney disease), stage V: Volume overload in the setting of CKD V Hold oral diuretics Start continuous Lasix drip Strict I's and O's Daily weights Discussed Araujo catheter, he like to hold off No indication for LICENSED PSYCHOLOGIST MANAGER currently Due to prior behaviors, he is not a candidate to receive care in some health systems per chart review Recent kidney biopsy reviewed Recent nephrology consultation note reviewed Supportive care (2) (HFpEF) heart failure with preserved ejection fraction: Acute on chronic heart failure with preserved ejection fraction exacerbation Hypoxia currently on 5 L, fairly new from the last admission Volume control with IV diuresis as noted above Continue beta coco Telemetry monitoring Daily assessment of volume (3) Pneumonia: Patient shortness of breath is worsening, rotate back to IV antibiotics w/ ceftriaxone Tessalone perles PRN Check procal Supportive care Qualifiers: Laterality: right Lung location: lower lobe of lung Pneumonia type: due to unspecified organism Qualified Code(s): J18.9 - Pneumonia, unspecified organism (4) Type 2 diabetes mellitus: Utilize sliding scale insulin correction Avoid hypoglycemia Qualifiers: Diabetes mellitus jail insulin use: with remote computer terminal operator use Diabetes mellitus complication status: without complication Qualified Code(s): E11.9 - Type 2 diabetes mellitus without complications; Z79.4 - longterm (current) use of insulin (5) Hypertension: Rotate Norvasc to Nifedipine Hold PRN clondidine (patient is on beta coco) Continue metoprolol; could consider alternative BB agent if needed Continue lisinopril Hold HCTZ and Bumex while on Lasix drip IV hydralazine PRN Plan DVT ppx: Heparin Code: Full PDMP PDMP Reviewed: Not Reviewed Attestations Medical Necessity Statement*: Patient present with shortness of breath, found to have fluid overload persistent symptoms with expected hospitalization not to cross 2 midnights for aggressive diuresis. Coding Level of Care Code Acute Code for g Fwd Diagnoses CKD (chronic kidney disease), stage V N18.5 (HFpEF) heart failure with preserved ejection fraction I50.30 Pneumonia J18.9 Laterality: right Lung location: lower lobe of lung Pneumonia type: due to unspecified organism Type 2 diabetes mellitus without complication, with long-term current use of insulin E11.9; Z79.4 Diabetes mellitus jail insulin use: with jail use Diabetes mellitus complication status: without complication Hypertension I10
[2025-01-08] MEDS: albuterol 2.5 mg/3 mL Neb INHALATION (20:41)
[2025-01-08 21:55] LABS: Procalcitonin 0.12 ng/mL (0-0.5)
[2025-01-08] MEDS: divalproex DR 250 mg Tablet PO (22:14)
[2025-01-08] MEDS: cefTRIAXone 1,000 mg SDV 1000 MG IVP (22:14)
[2025-01-08] MEDS: oxyCODONE-APAP 5-325 mg Tablet 1 TAB PO (22:14)
[2025-01-08] MEDS: FUROsemide 100 MG in sodium chloride 0.9% 40 ML 7.5 MG IV (22:37)
[2025-01-08 22:38] LABS: Glucose Point of Care 139 mg/dL (70-110)
[2025-01-09] VITALS (11 sets, daily range): BP systolic 114–170; BP diastolic 68–93; PULSE 65–102; RESP 16–18; TEMP 36.4–36.8; O2SAT 90–95; BMI 30.3
[2025-01-09] MEDS: FUROsemide 100 MG in sodium chloride 0.9% 40 ML 7.5 MG IV ×2 (04:25→11:21)
[2025-01-09 05:04] LABS: Basophils # 0.1 10^3/uL (0.0-0.1); Basophils % 1.4 %; Eosinophils # 0.2 10^3/uL (0.0-0.8); Hematocrit 29.8 % (37-53); Lymphocytes # 1.8 10^3/uL (0.8-4.8); Lymphocytes % 23.7 %; Mean Corpuscular HGB Conc 29.5 g/dL (30-55); Mean Corpuscular Hemoglobin 28.9 pg (27-33); Mean Corpuscular Volume 97.7 fl (82-101); Mean Platelet Volume 9.7 fL (7.4-10.4); Monocytes # 0.9 10^3/uL (0.2-0.9); Monocytes % 11.9 %; Neutrophils # 4.59 10^3/uL (1.8-7.7); Neutrophils % 59.6 %; Nucleated Red Blood Cells % 0 %; Platelet Count 450 10^3/cmm (157-399); Red Blood Count 3.05 10^6/uL (3.85-5.65); Red Cell Distribution Width 14.1 % (12.1-15.1); White Blood Count 7.71 10^3/uL (3.29-11.43)
[2025-01-09 05:29] LABS: Anion Gap 20.1 (5-19); Blood Urea Nitrogen 52 mg/dL (6-20); Calcium 7.7 mg/dL (8.5-10.5); Carbon Dioxide 18 mmol/L (22-29); Chloride 105 mmol/L (98-107); Creatinine Clr Calc Pharmacy 13.6803; Glomerular Filtration Rate 9.6 mL/min (90-130); Glucose 77 mg/dL (65-115); Magnesium 2.2 mg/dL (1.7-2.3); Osmolality Calculated 299 mOsm/kg (285-295); Phosphorus 7.1 mg/dL (2.5-4.5); Potassium 5.1 mmol/L (3.5-5.1); Sodium 138 mmol/L (136-145)
[2025-01-09 06:28] LABS: Glucose Point of Care 87 mg/dL (70-110)
[2025-01-09] MEDS: ezetimibe 10 mg Tablet PO (08:07)
[2025-01-09] MEDS: pantoprazole DR 40 mg Tablet PO (08:07)
[2025-01-09] MEDS: metoprolol succinate ER (24 HR) 50 mg Tablet 25 MG PO (08:07)
[2025-01-09] MEDS: lisinopril 20 mg Tablet 40 MG PO (08:08)
[2025-01-09] MEDS: buPROPion XL (24 HR) 150 mg Tablet PO (08:08)
[2025-01-09] MEDS: NIFEdipine ER (24 hr) 30 mg Tablet 60 MG PO (08:08)
[2025-01-09] MEDS: aspirin 81 mg EC Tablet PO (08:08)
--- NOTE | 2025-01-09 09:20 | PC.CHAP ---
Pastoral Care Encounter/Spiritual Assessment Type of Contact [] Declined beef cattle specialist visit [] Patient/Family/Request visit [] Outpatient visit [] Follow-up visit [] Physician referral [] Code/Alert [x] Routine visit [] Staff referral [] Actively dying [] Patient sleeping [] Family support [] [] Out of room [] Palliative care [] [] Receiving care in room [] Pre-surgical visit [] Trauma [] Long length of stay [] ICU visit [] Other: Relational/Emotional Strength [x] Patient feels connected with others/family/visitors/staff [] Distress [] Loneliness/isolation [] Abandonment Spirituality of Patient [x] Person of Carmita [] Attends Muslim of their Carmita [x] Believes in Prayer [] Reads Bible or Jain materials [] There are Spiritual issues to be addressed Manager Telemarketing 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 [x] Prayer [x] Active listening [] Non-anxious presence [x] Spiritual/emotional support [] Crisis/trauma care [] Spiritual counseling [] Bereavement support [] Provided bereavement packet [] Provided Bible/devotional materials [] Provided toy/stuffed animal, coloring book to patient or family member [] Provided Communion [] Anointing/[place] [] Salvation [x] Completed spiritual assessment [] Other: Impact on Illness or Injury [] Angry [] Fearful [] Anxious [] Often cries [] Exhaustion [] Unable to work [] Unable to attend catholic [] Unable to walk/stand [] Unable to read [] Unable to drive [] Unable to eat/drink [] Unable to sleep [] Unable to be with family [] Patient intubated [] Other: Summary Time spent with patient 5 min
[2025-01-09] MEDS: morphine 10 mg/0.5 mL oral liq UD PO ×2 (09:57→15:25)
[2025-01-09 11:04] LABS: Glucose Point of Care 95 mg/dL (70-110)
--- NOTE | 2025-01-09 11:06 | P.PN_ITS ---
Subjective 2 Subjective: Patient reports slight improvement in breathing. Reports urinary output has improved while on continuous drip. He notes severe lower extremity edema has not shown much improvement yet. Denies fevers or chills. Reports he did not sleep well. Reports poor response to Xanax for anxiety. Reports the morphine in the ER helped his breathing and air hunger. We discussed morphine for air hunger as palliative measure. He expressed understanding. Medications: Reviewed: Yes Vitals/I&O/Wt Last Vital Signs Temp 97.6 F 01/09/25 07:37 Pulse 90 01/09/25 07:52 Resp 16 01/09/25 07:52 BP 168/92 01/09/25 07:37 Pulse Ox 95 01/09/25 07:52 O2 Del Method Nasal Cannula 01/09/25 07:52 O2 Flow Rate 5 01/09/25 07:52 01/08/25 01/09/25 01/09/25 22:59 06:59 14:59 Intake Total 480 / 480 50 / 530 Output Total 515 / 515 Balance 480 / 480 -465 / 15 Weight last 48 hrs Weight 85.275 kg Weight 85.275 kg Weight 72.575 kg Physical Exam 2 Narrative: General: Patient is awake and alert. Conversational. Head: Normocephalic. Atraumatic. EOM intact. Reduced vision. Neck: Slightly elevated JVD. Cardiovascular: RRR. No gallops. No murmurs. 2-3+ pitting edema bilateral lower extremities, not significantly improved from prior exam. Lungs: Persistent dependent crackles bilaterally. Increased work of breathing. Tachypnea. On supplemental oxygen support. Skin: No jaundice. No rashes. Abdomen: Normal bowel sounds, abdomen soft and nontender. Genito Urinary: Genital exam not performed since complaints not related. Rectal: Rectal exam not performed since no symptoms indicated blood loss. Extremities: No cyanosis or clubbing. Musculoskeletal: No swollen or erythematous joints. Neurological: Moves all 4 extremities. No myoclonus. Data 01/09/25 04:53 01/09/25 04:53 A&P Assessment and plan (1) CKD (chronic kidney disease), stage V: Volume overload in the setting of CKD V Continue Lasix drip 15 mg/h; may adjust 20 mg/h pending clinical course Strict I's and O's Daily weights No indication for GLOBAL MOBILITY SPECIALIST (2) (HFpEF) heart failure with preserved ejection fraction: Acute on chronic heart failure with preserved ejection fraction exacerbation Remains on 5 L, fairly new from the last admission Volume control with IV diuresis as noted above Continue beta coco Telemetry monitoring Daily assessment of volume (3) Pneumonia: Continue Rocephin Tessalone perles PRN Supportive care Qualifiers: Laterality: right Lung location: lower lobe of lung Pneumonia type: d ue to unspecified organism Qualified Code(s): J18.9 - Pneumonia, unspecified organism (4) Type 2 diabetes mellitus: Sliding scale insulin correction Avoid hypoglycemia Qualifiers: Diabetes mellitus [facility] insulin use: with termite inspector use Diabetes mellitus complication status: without complication Qualified Code(s): E11.9 - Type 2 diabetes mellitus without complications; Z79.4 - alf (current) use of insulin (5) Hypertension: Continue nifedipine, increase dose Hold PRN clondidine (patient is on beta coco) Discontinue metoprolol, start Coreg Continue lisinopril Hold HCTZ and Bumex while on Lasix drip IV hydralazine PRN Plan DVT ppx: Heparin Code: Full PDMP PDMP Reviewed: Not Reviewed Attestations 2 Medical Necessity Statement*: Patient requires ongoing hospitalization for IV antibiotics, IV diuresis, and supportive care Coding Level of Care Code Acute Code for [facility] Fwd Diagnoses CKD (chronic kidney disease), stage V N18.5 (HFpEF) heart failure with preserved ejection fraction I50.30 Pneumonia J18.9 Laterality: right Lung location: lower lobe of lung Pneumonia type: due to unspecified organism Type 2 diabetes mellitus without complication, with long-term current use of insulin E11.9; Z79.4 Diabetes mellitus termite inspector insulin use: with termite inspector use Diabetes mellitus complication status: without complication Hypertension I10
[2025-01-09] MEDS: sevelamer 800 mg Tablet PO ×2 (15:26→22:04)
[2025-01-09] MEDS: guaiFENesin 600 mg Tablet 1200 MG PO (15:26)
[2025-01-09 16:57] LABS: Glucose Point of Care 97 mg/dL (70-110)
[2025-01-09] MEDS: carvedilol 6.25 mg Tablet PO (17:37)
[2025-01-09] MEDS: FUROsemide 200 MG in sodium chloride 0.9% (100 ml) 80 ML 7.5 MG IV (17:37)
[2025-01-09] MEDS: atorvastatin 40 mg Tablet 80 MG PO (17:38)
[2025-01-09] MEDS: divalproex DR 250 mg Tablet PO (18:12)
[2025-01-09] MEDS: calcium carbonate 500 mg Chew Tablet 1000 MG PO (19:09)
--- NOTE | 2025-01-09 20:08 | PC.NURSE ---
Patient non-compliant with voiding in urinal, even after education on importance of urinary output being measured.
[2025-01-09 20:52] LABS: Glucose Point of Care 108 mg/dL (70-110)
[2025-01-09] MEDS: cefTRIAXone 1,000 mg SDV 1000 MG IVP (22:03)
[2025-01-09] MEDS: NIFEdipine ER (24 hr) 30 mg Tablet PO (22:04)
[2025-01-09] MEDS: albuterol 2.5 mg/3 mL Neb INHALATION (22:19)
[2025-01-10] VITALS (10 sets, daily range): BP systolic 106–147; BP diastolic 57–76; PULSE 62–99; RESP 18–20; TEMP 36.4–37; O2SAT 89–99; BMI 30.3
[2025-01-10 05:27] LABS: Albumin Level 3.2 g/dL (3.5-5.2); Anion Gap 19.1 (5-19); Blood Urea Nitrogen 57 mg/dL (6-20); Calcium 8.1 mg/dL (8.5-10.5); Carbon Dioxide 20 mmol/L (22-29); Chloride 101 mmol/L (98-107); Creatinine Clr Calc Pharmacy 12.8384; Glomerular Filtration Rate 8.9 mL/min (90-130); Glucose 80 mg/dL (65-115); Potassium 6.1 mmol/L (3.5-5.1); Sodium 134 mmol/L (136-145)
[2025-01-10 05:39] LABS: Phosphorus 7.9 mg/dL (2.5-4.5)
--- NOTE | 2025-01-10 05:58 | PC.NURSE ---
Patient spilled hot coffee on self. Linen change provided. No visible injuries.
[2025-01-10] MEDS: FUROsemide 200 MG in sodium chloride 0.9% (100 ml) 80 ML 7.5 MG IV (06:10)
[2025-01-10 06:39] LABS: Glucose Point of Care 94 mg/dL (70-110)
[2025-01-10] MEDS: calcium gluconate 0.9% NaCL 1 GM/50 ML PREMIX IV (07:38)
[2025-01-10] MEDS: sodium polystyrene sulfonate 15 gm/60 mL Btl 30 GM PO (07:39)
[2025-01-10] MEDS: guaiFENesin 600 mg Tablet 1200 MG PO (09:12)
[2025-01-10] MEDS: pantoprazole DR 40 mg Tablet PO (09:13)
[2025-01-10] MEDS: ezetimibe 10 mg Tablet PO (09:13)
[2025-01-10] MEDS: sevelamer 800 mg Tablet PO ×3 (09:13→20:53)
[2025-01-10] MEDS: carvedilol 6.25 mg Tablet PO ×2 (09:13→18:23)
[2025-01-10] MEDS: NIFEdipine ER (24 hr) 30 mg Tablet 60 MG PO (09:13)
[2025-01-10] MEDS: oxyCODONE-APAP 5-325 mg Tablet 1 TAB PO (09:13)
[2025-01-10] MEDS: aspirin 81 mg EC Tablet PO (09:13)
[2025-01-10] MEDS: lisinopril 20 mg Tablet 40 MG PO (09:13)
[2025-01-10] MEDS: buPROPion XL (24 HR) 150 mg Tablet PO (09:13)
--- NOTE | 2025-01-10 10:26 | P.PN_ITS ---
Subjective 2 Subjective: Patient reports his volume status is improved. He notes his legs are less edematous today. Still has intermittent shortness of breath episodes. Blood pressures improved on current regiment. Denies fevers or chills. He is hyperkalemic this morning. Discussed with patient. Medications: Reviewed: Yes Vitals/I&O/Wt Last Vital Signs Temp 97.5 F L 01/10/25 07:31 Pulse 67 01/10/25 09:08 Resp 18 01/10/25 09:13 BP 106/57 01/10/25 07:31 Pulse Ox 93 01/10/25 09:08 O2 Del Method Nasal Cannula 01/10/25 09:08 O2 Flow Rate 5 01/10/25 09:08 01/09/25 01/10/25 01/10/25 22:59 06:59 14:59 Intake Total 1250 / 2020 700 / 2720 290 / 290 Output Total 150 / 150 Balance 1100 / 1870 700 / 2570 290 / 290 Weight last 48 hrs Weight 85.275 kg Weight 85.275 kg Weight 85.275 kg Weight 85.275 kg Weight 72.575 kg Physical Exam 2 Narrative: General: Patient is awake and alert. Conversational. Head: Normocephalic. Reduced vision. Cardiovascular: RRR. No gallops. No murmurs. 2+ pitting edema bilateral lower extremities, improved from prior exam. Lungs: Improved air movement. No rhonchi or wheezing. On supplemental oxygen support. Skin: No jaundice. No rashes. Abdomen: Normal bowel sounds, abdomen soft and nontender. Genito Urinary: Genital exam not performed since complaints not related. Rectal: Rectal exam not performed since no symptoms indicated blood loss. Extremities: No cyanosis or clubbing. Musculoskeletal: No swollen or erythematous joints. Neurological: Moves all 4 extremities. No myoclonus. Data 01/09/25 04:53 01/10/25 04:27 A&P Assessment and plan (1) CKD (chronic kidney disease), stage V: Volume overload in the setting of CKD V Hold drip for now; may restart later today or tomorrow pending repeat lab results Strict I's and O's Daily weights No indication for PUBLIC HEALTH TEACHER (2) (HFpEF) heart failure with preserved ejection fraction: Acute on chronic heart failure with preserved ejection fraction exacerbation Volume control with IV diuresis Continue beta coco Telemetry monitoring Daily assessment of volume (3) Pneumonia: Continue Rocephin Tessalone perles PRN Supportive care Qualifiers: Laterality: right Lung location: lower lobe of lung Pneumonia type: d ue to unspecified organism Qualified Code(s): J18.9 - Pneumonia, unspecified organism (4) Type 2 diabetes mellitus: Sliding scale insulin correction Avoid hypoglycemia Qualifiers: Diabetes mellitus shelter insulin use: with shelter use Diabetes mellitus complication status: without complication Qualified Code(s): E11.9 - Type 2 diabetes mellitus without complications; Z79.4 - engineering production liaison (current) use of insulin (5) Hypertension: Continue nifedipine Hold PRN clondidine (patient is on beta coco) Continue Coreg Continue lisinopril Continue to hold HCTZ and Bumex IV hydralazine PRN (6) Hyperkalemia: Telemetry Kayexalate 30 gm once Calcium gluconate x1 Repeat labs in afternoon Plan DVT ppx: Heparin Code: Full PDMP PDMP Reviewed: Not Reviewed Attestations 2 Medical Necessity Statement*: Patient requires ongoing hospitalization for IV antibiotics, IV diuresis, treatment of hyperkalemia and supportive care Coding Level of Care Code Acute Code for [facility] Fwd Diagnoses CKD (chronic kidney disease), stage V N18.5 (HFpEF) heart failure with preserved ejection fraction I50.30 Pneumonia J18.9 Laterality: right Lung location: lower lobe of lung Pneumonia type: due to unspecified organism Type 2 diabetes mellitus without complication, with long-term current use of insulin E11.9; Z79.4 Diabetes mellitus orchard pruner insulin use: with orchard pruner use Diabetes mellitus complication status: without complication Hypertension I10 Hyperkalemia E87.5
[2025-01-10] MEDS: albuterol 2.5 mg/3 mL Neb INHALATION (11:14)
[2025-01-10 11:35] LABS: Glucose Point of Care 110 mg/dL (70-110)
[2025-01-10] MEDS: ondansetron 2 mg/ML SDV 2 mL 4 MG IVP (14:02)
[2025-01-10 16:29] LABS: Glucose Point of Care 108 mg/dL (70-110)
[2025-01-10 17:57] LABS: Albumin Level 3.3 g/dL (3.5-5.2); Anion Gap 20.8 (5-19); Blood Urea Nitrogen 59 mg/dL (6-20); Calcium 8.2 mg/dL (8.5-10.5); Carbon Dioxide 20 mmol/L (22-29); Chloride 102 mmol/L (98-107); Creatinine Clr Calc Pharmacy 12.4552; Glomerular Filtration Rate 8.6 mL/min (90-130); Glucose 92 mg/dL (65-115); Potassium 5.8 mmol/L (3.5-5.1); Sodium 137 mmol/L (136-145)
[2025-01-10 18:14] LABS: Phosphorus 8.4 mg/dL (2.5-4.5)
[2025-01-10] MEDS: divalproex DR 250 mg Tablet PO (18:23)
[2025-01-10] MEDS: atorvastatin 40 mg Tablet 80 MG PO (18:23)
[2025-01-10] MEDS: sodium polystyrene sulfonate 15 gm/60 mL Btl PO (18:56)
[2025-01-10 20:44] LABS: Glucose Point of Care 190 mg/dL (70-110)
[2025-01-10] MEDS: NIFEdipine ER (24 hr) 30 mg Tablet PO (20:53)
[2025-01-10] MEDS: insulin lispro 100 unit/1 mL SUBCUT (20:53)
[2025-01-10] MEDS: cefTRIAXone 1,000 mg SDV 1000 MG IVP (20:54)
[2025-01-10 23:55] LABS: Glucose Point of Care 54 mg/dL (70-110)
[2025-01-11] VITALS (7 sets, daily range): BP systolic 102–129; BP diastolic 56–72; PULSE 68–96; RESP 16–19; TEMP 36.6–37.1; O2SAT 90–93
--- NOTE | 2025-01-11 | PC.NURSE ---
Patient diaphoretic. Blood sugar 54. Patient alert and oriented. Patient has no complaints or pain. VSS. Patient given apple juice with sugar. Patient states that he does not take any insulin at home.
[2025-01-11 00:32] LABS: Glucose Point of Care 73 mg/dL (70-110)
[2025-01-11] MEDS: calcium carbonate 500 mg Chew Tablet 1000 MG PO (00:50)
[2025-01-11 00:56] LABS: Glucose Point of Care 115 mg/dL (70-110)
[2025-01-11 02:56] LABS: Basophils # 0.1 10^3/uL (0.0-0.1); Basophils % 0.6 %; Eosinophils # 0.1 10^3/uL (0.0-0.8); Eosinophils % 0.3 %; Hematocrit 27.8 % (37-53); Lymphocytes # 0.6 10^3/uL (0.8-4.8); Lymphocytes % 3.9 %; Mean Corpuscular HGB Conc 29.9 g/dL (30-55); Mean Corpuscular Hemoglobin 28.1 pg (27-33); Mean Corpuscular Volume 94.2 fl (82-101); Mean Platelet Volume 10.4 fL (7.4-10.4); Monocytes # 1.1 10^3/uL (0.2-0.9); Monocytes % 7.1 %; Neutrophils # 13.08 10^3/uL (1.8-7.7); Neutrophils % 87.5 %; Nucleated Red Blood Cells % 0 %; Platelet Count 364 10^3/cmm (157-399); Red Blood Count 2.95 10^6/uL (3.85-5.65); Red Cell Distribution Width 13.6 % (12.1-15.1); White Blood Count 14.97 10^3/uL (3.29-11.43)
[2025-01-11 03:12] LABS: Glucose Point of Care 161 mg/dL (70-110)
[2025-01-11 03:19] LABS: Anion Gap 20.3 (5-19); Blood Urea Nitrogen 60 mg/dL (6-20); Calcium 7.9 mg/dL (8.5-10.5); Carbon Dioxide 22 mmol/L (22-29); Chloride 98 mmol/L (98-107); Creatinine Clr Calc Pharmacy 11.7535; Glucose 155 mg/dL (65-115); Magnesium 2.1 mg/dL (1.7-2.3); Potassium 5.3 mmol/L (3.5-5.1); Sodium 135 mmol/L (136-145)
[2025-01-11 06:26] LABS: Glucose Point of Care 172 mg/dL (70-110)
--- NOTE | 2025-01-11 07:10 | PC.NURSE ---
Dr. Powell notified of patient asking for something to calm his nerves. Patient is currently tearful.
--- NOTE | 2025-01-11 07:51 | P.PN_ITS ---
Subjective 2 Subjective: Patient reports he had a rough night mainly due to his nerves. Continues to have episodic shortness of breath. Discussed improvement in hyperkalemia overnight. Endorses severe volume overload and weakness. Denies fevers or chills. Endorses diffuse pain and anxiety. Denies other new complaints. Medications: Reviewed: Yes Vitals/I&O/Wt Last Vital Signs Temp 98 F 01/11/25 04:00 Pulse 82 01/11/25 04:00 Resp 18 01/11/25 04:00 BP 123/67 01/11/25 04:00 Pulse Ox 93 01/11/25 04:00 O2 Del Method Nasal Cannula 01/11/25 04:00 O2 Flow Rate 3 01/11/25 04:00 01/10/25 01/11/25 01/11/25 22:59 06:59 14:59 Intake Total 600 / 1130 Output Total 150 / 150 Balance -150 / 380 600 / 980 Weight last 48 hrs Weight 85.411 kg Weight 85.275 kg Weight 85.275 kg Physical Exam 2 Narrative: General: Patient is awake. Appears discouraged. Head: Normocephalic. Reduced vision. Cardiovascular: RRR. No gallops. No murmurs. 2+ pitting edema bilateral lower extremities, fairly similar to yesterday's exam. Lungs: Adequate air movement. No rhonchi or wheezing. On supplemental oxygen support. Skin: No jaundice. No rashes. Abdomen: Normal bowel sounds, abdomen soft and nontender. Genito Urinary: Genital exam not performed since complaints not related. Rectal: Rectal exam not performed since no symptoms indicated blood loss. Extremities: No cyanosis or clubbing. Musculoskeletal: No swollen or erythematous joints. Neurological: Moves all 4 extremities. No myoclonus. Data 01/11/25 02:28 01/11/25 02:28 A&P Assessment and plan (1) CKD (chronic kidney disease), stage V: Volume overload in the setting of CKD V Restart Lasix drip at 10 mg/h Strict I's and O's Daily weights No indication for CRITICAL CARE NURSE SPECIALIST, although anticipate he will need CRITICAL CARE NURSE SPECIALIST possibly later this year (2) (HFpEF) heart failure with preserved ejection fraction: Acute on chronic heart failure with preserved ejection fraction exacerbation Volume control with IV diuresis Continue beta coco Telemetry monitoring Daily assessment of volume (3) Pneumonia: Continue Rocephin Tessalone perles PRN Supportive care Qualifiers: Laterality: right Lung location: lower lobe of lung Pneumonia type: d ue to unspecified organism Qualified Code(s): J18.9 - Pneumonia, unspecified organism (4) Type 2 diabetes mellitus: Sliding scale insulin correction Avoid hypoglycemia Qualifiers: Diabetes mellitus alf insulin use: with adjunct faculty for medical terminology use Diabetes mellitus complication status: without complication Qualified Code(s): E11.9 - Type 2 diabetes mellitus without complications; Z79.4 - long-term (current) use of insulin (5) Hypertension: Continue nifedipine Hold PRN clondidine (patient is on beta coco) Continue Coreg Discontinue lisinopril due to development of hyperkalemia Continue to hold HCTZ and Bumex IV hydralazine PRN (6) Hyperkalemia: Telemetry Potassium 5.3 Monitor Plan DVT ppx: SCD Code: Full PDMP PDMP Reviewed: Not Reviewed Attestations 2 Medical Necessity Statement*: Patient requires ongoing hospitalization for IV antibiotics, IV diuresis, treatment of hyperkalemia and supportive care. Coding Level of Care Code Acute Code for [facility] Diagnoses CKD (chronic kidney disease), stage V N18.5 (HFpEF) heart failure with preserved ejection fraction I50.30 Pneumonia J18.9 Laterality: right Lung location: lower lobe of lung Pneumonia type: due to unspecified organism Type 2 diabetes mellitus without complication, with long-term current use of insulin E11.9; Z79.4 Diabetes mellitus adjunct faculty for medical terminology insulin use: with alf use Diabetes mellitus complication status: without complication Hypertension I10 Hyperkalemia E87.5
[2025-01-11] MEDS: carvedilol 6.25 mg Tablet PO ×2 (08:30→17:35)
[2025-01-11] MEDS: buPROPion XL (24 HR) 150 mg Tablet PO (08:30)
[2025-01-11] MEDS: aspirin 81 mg EC Tablet PO (08:30)
[2025-01-11] MEDS: NIFEdipine ER (24 hr) 30 mg Tablet 60 MG PO (08:30)
[2025-01-11] MEDS: pantoprazole DR 40 mg Tablet PO (08:30)
[2025-01-11] MEDS: sevelamer 800 mg Tablet PO ×3 (08:30→21:07)
[2025-01-11 11:29] LABS: Glucose Point of Care 157 mg/dL (70-110)
[2025-01-11] MEDS: insulin lispro 100 unit/1 mL SUBCUT ×3 (11:45→21:07)
--- NOTE | 2025-01-11 12:58 | PC.SOCIAL ---
IMM Update pg 2 of IMM updated w/ patient. Copy provided and copy dated, initialed and placed in chart.
[2025-01-11] MEDS: benzonatate 100 mg Capsule 200 MG PO (13:23)
[2025-01-11 16:59] LABS: Glucose Point of Care 143 mg/dL (70-110)
[2025-01-11] MEDS: atorvastatin 40 mg Tablet 80 MG PO (17:35)
[2025-01-11] MEDS: divalproex DR 250 mg Tablet PO (18:12)
[2025-01-11] MEDS: sodium chloride 0.9% 250 ML IV (19:21)
[2025-01-11 20:34] LABS: Glucose Point of Care 147 mg/dL (70-110)
[2025-01-11] MEDS: cefTRIAXone 1,000 mg SDV 1000 MG IVP (21:07)
[2025-01-12] VITALS (12 sets, daily range): BP systolic 108–118; BP diastolic 61–68; PULSE 70–97; RESP 15–18; TEMP 36.5–36.9; O2SAT 90–93
[2025-01-12] MEDS: albuterol 2.5 mg/3 mL Neb INHALATION ×2 (01:24→20:26)
--- NOTE | 2025-01-12 01:49 | PC.NURSE ---
AT THE BEGINNING OF THIS RNS SHIFT, PT WAS C/O NOT FEELING GOOD AND REQUESTED HIS BP TO BE TAKEN. BP WAS 96/46. THIS RN REACHED OUT TO THE MD QUALITY SUPERVISOR TO GET ORDERS. THIS RN GAVE A ONE TIME 250ML BOLUS. PT BP WENT UP TO 103/56 AFTER BOLUS. PT STILL C/O OF NOT FEELING GOOD BUT IS RESTING MORE COMFORTABLY IN BED AT THIS TIME. THIS RN WILL CONTINUE TO MONITOR UNTIL THE END OF THIS RNS SHIFT.
[2025-01-12 06:16] LABS: Basophils # 0.1 10^3/uL (0.0-0.1); Basophils % 0.7 %; Eosinophils # 0.1 10^3/uL (0.0-0.8); Eosinophils % 0.9 %; Hematocrit 26.2 % (37-53); Lymphocytes % 6.2 %; Mean Corpuscular HGB Conc 29.8 g/dL (30-55); Mean Corpuscular Hemoglobin 28.4 pg (27-33); Mean Corpuscular Volume 95.3 fl (82-101); Mean Platelet Volume 10.5 fL (7.4-10.4); Monocytes # 1.5 10^3/uL (0.2-0.9); Monocytes % 9.8 %; Neutrophils # 12.45 10^3/uL (1.8-7.7); Neutrophils % 81.6 %; Nucleated Red Blood Cells % 0 %; Platelet Count 302 10^3/cmm (157-399); Red Blood Count 2.75 10^6/uL (3.85-5.65); Red Cell Distribution Width 13.6 % (12.1-15.1); White Blood Count 15.25 10^3/uL (3.29-11.43)
[2025-01-12 06:35] LABS: Albumin Level 2.8 g/dL (3.5-5.2); Anion Gap 19.1 (5-19); Blood Urea Nitrogen 67 mg/dL (6-20); Calcium 7.8 mg/dL (8.5-10.5); Carbon Dioxide 21 mmol/L (22-29); Chloride 98 mmol/L (98-107); Glomerular Filtration Rate 7.3 mL/min (90-130); Glucose 93 mg/dL (65-115); Magnesium 2.1 mg/dL (1.7-2.3); Potassium 5.1 mmol/L (3.5-5.1); Sodium 133 mmol/L (136-145)
[2025-01-12 06:44] LABS: Glucose Point of Care 118 mg/dL (70-110)
[2025-01-12 06:45] LABS: Creatinine Clr Calc Pharmacy 10.6176; Phosphorus 8.2 mg/dL (2.5-4.5)
[2025-01-12] MEDS: carvedilol 6.25 mg Tablet PO ×2 (09:28→18:42)
[2025-01-12] MEDS: ezetimibe 10 mg Tablet PO (09:28)
[2025-01-12] MEDS: sevelamer 800 mg Tablet PO ×3 (09:28→21:09)
[2025-01-12] MEDS: pantoprazole DR 40 mg Tablet PO (09:28)
[2025-01-12] MEDS: aspirin 81 mg EC Tablet PO (09:28)
[2025-01-12] MEDS: buPROPion XL (24 HR) 150 mg Tablet PO (09:28)
--- NOTE | 2025-01-12 09:34 | PM.PN ---
Subjective Subjective: Patient overnight was found to be hypotensive. He was given low-dose IV fluid bolus. Diuretics held. This morning he reports his breathing is improving. Denies fevers, chills, nausea or emesis. Endorses continued fluid overload state. He is eager to get home. Medications: Reviewed: Yes Vitals/I&O/Wt Last Vital Signs Temp 98.4 F 01/12/25 07:21 Pulse 80 01/12/25 08:01 Resp 16 01/12/25 08:01 BP 116/61 01/12/25 07:21 Pulse Ox 93 01/12/25 08:01 O2 Del Method Nasal Cannula 01/12/25 08:01 O2 Flow Rate 5 01/12/25 08:01 01/11/25 01/12/25 01/12/25 22:59 06:59 14:59 Intake Total 730 / 950 Output Total 225 / 225 Balance 730 / 950 -225 / 725 Weight last 48 hrs Weight 81.601 kg Weight 85.411 kg Physical Exam Narrative: General: Patient is awake. Alert. Head: Normocephalic. Reduced vision. Cardiovascular: RRR. No gallops. No murmurs. 2+ pitting edema bilateral lower extremities, similar to yesterday's exam. Lungs: Adequate air movement. No rhonchi or wheezing. On supplemental oxygen support. Skin: No jaundice. No rashes. Abdomen: Normal bowel sounds, abdomen soft and nontender. Genito Urinary: Genital exam not performed since complaints not related. Rectal: Rectal exam not performed since no symptoms indicated blood loss. Extremities: No cyanosis or clubbing. Musculoskeletal: No swollen or erythematous joints. Neurological: Moves all 4 extremities. No myoclonus. Data 01/12/25 05:41 01/12/25 05:41 A&P Assessment and plan (1) CKD (chronic kidney disease), stage V: Volume overload in the setting of CKD V Plan to restart Lasix drip at 10 mg/h as blood pressure improves today Strict I's and O's Daily weights No indication for STATISTICAL FINANCIAL ANALYST, although anticipate he will need STATISTICAL FINANCIAL ANALYST possibly later this year (2) (HFpEF) heart failure with preserved ejection fraction: Acute on chronic heart failure with preserved ejection fraction exacerbation Volume control with IV diuresis Continue beta coco Telemetry monitoring Daily assessment of volume (3) Pneumonia: Continue Rocephin Tessalone perles PRN Supportive care Qualifiers: Laterality: right Lung location: lower lobe of lung Pneumonia type: due to unspecified organism Qualified Code(s): J18.9 - Pneumonia, unspecified organism (4) Type 2 diabetes mellitus: Sliding scale insulin correction Avoid hypoglycemia Qualifiers: Diabetes mellitus senior care insulin use: with associate professor of management use Diabetes mellitus complication status: without complication Qualified Code(s): E11.9 - Type 2 diabetes mellitus without complications; Z79.4 - distributor sales consultant (current) use of insulin (5) Hypertension: Hold nifedipine, may restart back a lower dose as blood pressure improves Hold PRN clondidine (patient is on beta coco) Continue Coreg Discontinue lisinopril due to development of hyperkalemia Continue to hold HCTZ and Bumex IV hydralazine PRN (6) Hyperkalemia: Telemetry Potassium 5.1 Monitor Plan DVT ppx: SCD Code: Full PDMP PDMP Reviewed: Not Reviewed Attestations Medical Necessity Statement*: Patient requires ongoing hospitalization for IV antibiotics, IV diuresis, electrolyte management and supportive care. Coding Level of Care Code Acute Code for [facility] Fwd Diagnoses CKD (chronic kidney disease), stage V N18.5 (HFpEF) heart failure with preserved ejection fraction I50.30 Pneumonia J18.9 Laterality: right Lung location: lower lobe of lung Pneumonia type: due to unspecified organism Type 2 diabetes mellitus without complication, with long-term current use of insulin E11.9; Z79.4 Diabetes mellitus senior care insulin use: with senior care use Diabetes mellitus complication status: without complication Hypertension I10 Hyperkalemia E87.5
[2025-01-12 11:25] LABS: Glucose Point of Care 134 mg/dL (70-110)
[2025-01-12] MEDS: sodium bicarbonate 650 mg Tablet PO ×2 (15:29→21:09)
[2025-01-12 15:40] LABS: Glucose Point of Care 182 mg/dL (70-110)
[2025-01-12] MEDS: divalproex DR 250 mg Tablet PO (18:42)
[2025-01-12 20:32] LABS: Glucose Point of Care 208 mg/dL (70-110)
[2025-01-12] MEDS: cefTRIAXone 1,000 mg SDV 1000 MG IVP (21:09)
[2025-01-13 02:44] LABS: Basophils # 0.1 10^3/uL (0.0-0.1); Basophils % 0.7 %; Eosinophils # 0.2 10^3/uL (0.0-0.8); Eosinophils % 1.3 %; Hematocrit 26.1 % (37-53); Lymphocytes # 1.2 10^3/uL (0.8-4.8); Mean Corpuscular HGB Conc 30.3 g/dL (30-55); Mean Corpuscular Hemoglobin 28.5 pg (27-33); Mean Corpuscular Volume 94.2 fl (82-101); Mean Platelet Volume 10.8 fL (7.4-10.4); Monocytes # 1.2 10^3/uL (0.2-0.9); Monocytes % 9.1 %; Neutrophils # 10.11 10^3/uL (1.8-7.7); Neutrophils % 78.9 %; Nucleated Red Blood Cells % 0 %; Platelet Count 306 10^3/cmm (157-399); Red Blood Count 2.77 10^6/uL (3.85-5.65); Red Cell Distribution Width 13.4 % (12.1-15.1); White Blood Count 12.81 10^3/uL (3.29-11.43)
[2025-01-13 03:03] LABS: Albumin Level 2.7 g/dL (3.5-5.2); Anion Gap 20.3 (5-19); Blood Urea Nitrogen 70 mg/dL (6-20); Calcium 7.7 mg/dL (8.5-10.5); Carbon Dioxide 21 mmol/L (22-29); Chloride 96 mmol/L (98-107); Creatinine Clr Calc Pharmacy 10.3488; Glomerular Filtration Rate 7.1 mL/min (90-130); Glucose 145 mg/dL (65-115); Potassium 5.3 mmol/L (3.5-5.1); Sodium 132 mmol/L (136-145)
[2025-01-13 03:09] LABS: Phosphorus 8.5 mg/dL (2.5-4.5)
[2025-01-13 04:00] VITALS: BP 115/61; PULSE 72; RESP 18; TEMP 36.6; O2SAT 90
[2025-01-13 06:37] LABS: Glucose Point of Care 158 mg/dL (70-110)
[2025-01-13 08:00] VITALS: BP 128/69; PULSE 75; RESP 22; TEMP 36.8; O2SAT 91
--- NOTE | 2025-01-13 09:47 | P.DS_ITS ---
Discharge Providers Date of Admission: 01/09/25 11:00 Date of Discharge: January 13, 2025 Attending Provider at Admission: Yung Powell MD Attending Provider at Discharge: Yung Powell MD Primary Care Provider: Pierce Justice MD Diagnoses at Discharge Discharge Diagnosis (1) CKD (chronic kidney disease), stage V: Status: Acute (2) (HFpEF) heart failure with preserved ejection fraction: Status: Acute (3) Pneumonia: Status: Acute Qualifiers: Laterality: right Lung location: lower lobe of lung Pneumonia type: due to unspecified organism Qualified Code(s): J18.9 - Pneumonia, unspecified organism (4) Type 2 diabetes mellitus: Status: Acute Qualifiers: Diabetes mellitus complication status: without complication Diabetes mellitus penitentiary insulin use: with truck terminal manager use Qualified Code(s): E11.9 - Type 2 diabetes mellitus without complications; Z79.4 - equipment operator intermodal yard (current) use of insulin (5) Hypertension: Status: Inactive (6) Hyperkalemia: Status: Acute Reason for Visit Reason for Visit: L and R leg swelling Hospital Course Hospital Course Joseph Baker is a 59-year-old male with a past medical history significant for chronic kidney disease stage V, chronic hypoxic respiratory failure on 5 L oxygen baseline, hypertension, hyperlipidemia, bipolar disorder, and multiple other comorbidities who presented with shortness of breath, found to have volume overload with acute on chronic heart failure with preserved ejection fraction exacerbation. He was treated with continuous Lasix infusion. His shortness of breath significantly improved. Volume status improved. He remained on his home oxygen of 5 L nasal cannula. He developed transient hyperkalemia treated medically with significant improvement. His ALANNA inhibitor has been discontinued. His antihypertensives were adjusted with excellent blood pressure response. He was continued on antibiotics due to recent pneumonia. Patient demonstrated labile emotions throughout his hospitalization. Patient was extensively counseled. He has chronic kidney disease stage V. He had a recent kidney biopsy in [place] showing nodular diabetic glomerulosclerosis class III and ATN. He is reportedly been refused elective care by multiple local nephrology groups. PCP notes indicates [facility] associated nephrology office will no longer provide care due to his prior behaviors. Based on the trajectory of his renal function, anticipate he will likely need renal replacement therapy eventually. He may be better served in a region where there is more opportunities for him to seek nephrology care. Overall, patient symptomatology significantly improved. He did not require more than this baseline oxygen requirements. He has chronic fluid overload which is likely to persist. His diuretics were adjusted at discharge as per discharge medication reconciliation below. Patient discharged home in stable condition. He is to follow-up with his PCP within 1 week. Physical Exam Narrative: General: Patient is awake. Alert. No acute distress. Head: Normocephalic. Reduced vision. Cardiovascular: RRR. No gallops. No murmurs. 1+ pitting edema in bilateral lower extremities. Lungs: Adequate air movement. No rhonchi or wheezing. On supplemental oxygen support. Skin: No jaundice. No rashes. Abdomen: Normal bowel sounds, abdomen soft and nontender. Extremities: No cyanosis or clubbing. Musculoskeletal: No swollen or erythematous joints. Neurological: Moves all 4 extremities. No myoclonus. Discharge Data Studies Completed and Pending Completed Studies During Hospitalization Category Date Time Status XR chest 1V portable [id number] Stat Exams 01/08/25 15:57 Completed Radiology Impressions Chest X-Ray 01/08/25 15:57 IMPRESSION: Opacities in the left mid lung field and left lower lobe and to a lesser extent the right lower lobe with small left-sided pleural effusion. Laboratory Results WBC 12.81 10^3/uL (3.29-11.43) H 01/13/25 02:18 RBC 2.77 10^6/uL (3.85-5.65) L 01/13/25 02:18 Hgb 7.90 g/dL (11.27-16.99) L 01/13/25 02:18 Hct 26.1 % (37-53) L 01/13/25 02:18 MCV 94.2 fl (82-101) 01/13/25 02:18 MCH 28.5 pg (27-33) 01/13/25 02:18 MCHC 30.3 g/dL (30-55) 01/13/25 02:18 RDW 13.4 % (12.1-15.1) 01/13/25 02:18 Plt Count 306 10^3/cmm (157-399) 01/13/25 02:18 MPV 10.8 fL (7.4-10.4) H 01/13/25 02:18 Neut % (Auto) 78.9 % 01/13/25 02:18 Lymph % (Auto) 9.0 % 01/13/25 02:18 Carter % (Auto) 9.1 % 01/13/25 02:18 Eos % (Auto) 1.3 % 01/13/25 02:18 Baso % (Auto) 0.7 % 01/13/25 02:18 Neut # (Auto) 10.11 10^3/uL (1.8-7.7) H 01/13/25 02:18 Lymph # (Auto) 1.2 10^3/uL (0.8-4.8) 01/13/25 02:18 Carter # (Auto) 1.2 10^3/uL (0.2-0.9) H 01/13/25 02:18 Eos # (Auto) 0.2 10^3/uL (0.0-0.8) 01/13/25 02:18 Baso # (Auto) 0.1 10^3/uL (0.0-0.1) 01/13/25 02:18 Nucleated RBC % (auto) 0 % 01/13/25 02:18 Nucleated RBCs # 0.0 /100WBC 01/13/25 02:18 Sodium 132 mmol/L (136-145) L 01/13/25 02:18 Potassium 5.3 mmol/L (3.5-5.1) H 01/13/25 02:18 Chloride 96 mmol/L (98-107) L 01/13/25 02:18 Carbon Dioxide 21 mmol/L (22-29) L 01/13/25 02:18 Anion Gap 20.3 (5-19) H 01/13/25 02:18 BUN 70 mg/dL (6-20) H 01/13/25 02:18 Creatinine 7.9 mg/dL (0.7-1.2) H* 01/13/25 02:18 GFR Calculation 7.1 mL/min (90-130) L 01/13/25 02:18 Glucose 145 mg/dL (65-115) H 01/13/25 02:18 POC Glucose 158 mg/dL (70-110) H 01/13/25 06:28 Calculated Osmolality 299 mOsm/kg (285-295) H 01/09/25 04:53 Calcium 7.7 mg/dL (8.5-10.5) L 01/13/25 02:18 Phosphorus 8.5 mg/dL (2.5-4.5) H* 01/13/25 02:18 Magnesium 2.1 mg/dL (1.7-2.3) 01/12/25 05:41 Total Bilirubin 0.2 mg/dL (0.15-1.2) 01/08/25 16:17 AST 17 U/L (0-40) 01/08/25 16:17 ALT 12 U/L (0-41) 01/08/25 16:17 Alkaline Phosphatase 111 U/L (40-130) 01/08/25 16:17 NT-Pro-B Natriuret Pep 36416 pg/mL (0-125) H 01/08/25 16:17 Total Protein 8.0 g/dL (6.6-8.7) 01/08/25 16:17 Albumin 2.7 g/dL (3.5-5.2) L 01/13/25 02:18 Globulin 4.5 g/dL (1.3-4.6) 01/08/25 16:17 Procalcitonin 0.12 ng/mL (0-0.5) 01/08/25 17:16 Vitals Last Vital Signs Temp 98.2 F 01/13/25 08:00 Pulse 75 01/13/25 08:00 Resp 22 H 01/13/25 08:00 BP 128/69 01/13/25 08:00 Pulse Ox 91 01/13/25 08:00 O2 Del Method Nasal Cannula 01/13/25 08:00 O2 Flow Rate 5 01/12/25 20:32 Discharge Plan Discharge Patient Disposition: Home Condition: Stable Prescriptions: New nifedipine 30 mg Tablet Extended Release 24hr 30 mg PO BEDTIME 30 Days Qty: 30 1RF carvedilol 6.25 mg Tablet 6.25 mg PO BID 30 Days Qty: 60 1RF sodium bicarbonate 650 mg Tablet 650 mg PO TID 30 Days Qty: 90 1RF sevelamer carbonate 800 mg Tablet 800 mg PO TID 30 Days Qty: 90 1RF bumetanide 2 mg tablet 2 mg PO BIDAC Qty: 60 1RF oxycodone-acetaminophen 5-325 mg Tablet 1 tab PO Q4H PRN (Reason: Severe Pain) 7 Days Qty: 20 0RF fluconazole [Diflucan] 200 mg tablet 200 mg PO DAILY 14 Days Qty: 14 0RF Continued (DME) diabetic shoes w/ 3 inserts See Rx Instructions .Route .MEDSUPPLY Qty: 1 0RF Rx Instructions: As directed by HOME w/Right toe filler pantoprazole 40 mg tablet,delayed release (DR/EC) 40 mg PO DAILY glipizide 5 mg tablet extended release 24hr 5 mg PO DAILY Qty: 30 0RF divalproex [Depakote] 250 mg tablet,delayed release (DR/EC) 250 mg PO .7 pm Qty: 30 2RF aspirin 81 mg Tablet,Delayed Release (Dr/Ec) 81 mg PO DAILY Qty: 90 0RF atorvastatin 80 mg tablet 80 mg PO QPM albuterol sulfate 2.5 mg /3 mL (0.083 %) solution for nebulization 2.5 mg inhalation Q4H PRN (Reason: Shortness Of Breath) bupropion HCl 150 mg tablet extended release 24 hr 150 mg PO DAILY ezetimibe 10 mg tablet 10 mg PO DAILY amoxicillin-pot clavulanate 875-125 mg tablet 1 tab PO BID 5 Days Qty: 10 0RF Discontinued amlodipine 10 mg tablet 10 mg PO DAILY Qty: 90 1RF lisinopril 40 mg tablet 40 mg PO DAILY hydrochlorothiazide 25 mg tablet 25 mg PO DAILY Qty: 90 0RF bumetanide 1 mg tablet See Rx Instructions PO BID Qty: 60 0RF Rx Instructions: take TWO tablets qAM and ONE tablet qNOON orally clonidine HCl 0.1 mg tablet 0.1 mg PO DAILY PRN (Reason: hypertensive emergency) Qty: 7 1RF Rx Instructions: May take one tablet daily as needed for blood pressure systolic 160 or over hydralazine 10 mg tablet 10 mg PO TID PRN (Reason: Anxiety) Qty: 90 0RF furosemide 40 mg tablet See Rx Instructions .ROUTE .COMPLEX Rx Instructions: TAKE ONE TABLET BY MOUTH TWICE DAILY FOR 7 DAYS THEN ONE DAILY IN THE MORNING FOR 7 DAYS metoprolol succinate 50 mg tablet extended release 24 hr 25 mg PO DAILY Discharge Orders: Discharge Order (Routine); Ordered 01/13/25 Ordered By: Yung Powell Referrals: Pierce Justice MD [Primary Care Provider] - 1-3 days (We have notified your physician's clinic of the need for a follow-up appointment to be scheduled. If you have not heard from them within the next 2 business days, please call them directly. ) Discharge Diet: Advance as tolerated and Low Salt Discharge Activity: Resume usual activity and Increase activity as tolerated Patient Instructions: Bumetanide (By mouth) (Bumex), Carvedilol (By mouth), Sevelamer (By mouth), Sodium Bicarbonate (By mouth), Opioid Safety Activity Restrictions/Additional Instructions: Take medications as prescribed. Limit fluid intake to 1.5 L/day. Keep sodium intake to less than 2 g/day. Keep home blood pressure log. Bring log to PCP appointment. Follow-up with PCP within 7 days. Discharge Attestations Time Spent in Discharge Care*: less than 30 min Status at Discharge: Cognitive status at discharge: cognitively intact , Behavioral status at discharge: cooperative , Quality Metrics Clinical Quality Measures [ No reported AMI, CVA or VTE this stay] Coding Level of Care Code Acute Code for [facility] Fwd Diagnoses CKD (chronic kidney disease), stage V N18.5 (HFpEF) heart failure with preserved ejection fraction I50.30 Pneumonia J18.9 Laterality: right Lung location: lower lobe of lung Pneumonia type: due to unspecified organism Type 2 diabetes mellitus without complication, with long-term current use of insulin E11.9; Z79.4 Diabetes mellitus complication status: without complication Diabetes mellitus truck terminal manager insulin use: with truck terminal manager use Hypertension I10 Hyperkalemia E87.5
[2025-01-13] MEDS: sodium bicarbonate 650 mg Tablet PO (11:25)
[2025-01-13] MEDS: FUROsemide 10 mg/mL SDV 2mL 20 MG IVP (11:26)
[2025-01-13] MEDS: buPROPion XL (24 HR) 150 mg Tablet PO (11:26)
[2025-01-13] MEDS: ezetimibe 10 mg Tablet PO (11:26)
[2025-01-13] MEDS: carvedilol 6.25 mg Tablet PO (11:26)
[2025-01-13] MEDS: aspirin 81 mg EC Tablet PO (11:26)
[2025-01-13] MEDS: pantoprazole DR 40 mg Tablet PO (11:26)
[2025-01-13] MEDS: sevelamer 800 mg Tablet PO (11:26)
[2025-01-13 11:27] LABS: Glucose Point of Care 152 mg/dL (70-110)
[2025-01-13 12:00] VITALS: BP 146/74; PULSE 81; RESP 16; TEMP 36.4; O2SAT 91
== END 2025-01-13 14:10 | disposition home or self-care (01) | DRG 193 ==
LOC: ER 18:27 → ER IP 18:36 → MEDSURG 18:56
PROVIDERS: Admitting Provider Internal Medicine; Emergency Provider Emergency Medicine; PCP Family Medicine; Visit Provider Internal Medicine
DX: J18.9 Pneumonia, unspecified organism (principal); I50.33 Acute on chronic diastolic (congestive) heart failure; N18.5 Chronic kidney disease, stage 5; J96.11 Chronic respiratory failure with hypoxia; F31.81 Bipolar II disorder; I11.0 Hypertensive heart disease with heart failure; E11.22 Type 2 diabetes mellitus with diabetic chronic kidney disease; Z79.4 Long term (current) use of insulin; E87.5 Hyperkalemia; Z99.81 Dependence on supplemental oxygen; E78.5 Hyperlipidemia, unspecified; Z79.82 Long term (current) use of aspirin; Z87.01 Personal history of pneumonia (recurrent); I25.2 Old myocardial infarction; F17.210 Nicotine dependence, cigarettes, uncomplicated; F43.12 Post-traumatic stress disorder, chronic; Z85.828 Personal history of other malignant neoplasm of skin; I95.9 Hypotension, unspecified
CPT/HCPCS: 36415; 36416; 71045; 80048; 80053; 80069; 82962; 83735; 83880; 84100; 84145; 85025; 93005; 94640; 94664; 96372; G0378; J0612; J0696; J1815; J1940; J2270; J2405; J7050; J7613; J9999

== ENCOUNTER 2025-01-15 04:36 | Inpatient (IN) | payer MEDICARE, MEDICAID, SELFPAY ==
[2024-12-26 13:42] VITALS: BMI 29.2
[2025-01-15] VITALS (11 sets, daily range): BP systolic 100–167; BP diastolic 52–89; PULSE 64–101; RESP 16–21; TEMP 36.4–36.8; O2SAT 91–95; BMI 32.1; BMI 30.9
--- NOTE | 2025-01-15 04:43 | XRR_ITS ---
PROCEDURE INFORMATION: Exam: XR Chest Exam date and time: 01/15/2025 4:56 AM Age: 59 years old Clinical indication: Other: Weakness TECHNIQUE: Imaging protocol: Radiologic exam of the chest. Views: 1 view. COMPARISON: CR XR chest 1V portable [id number] 01/08/2025 4:22 PM FINDINGS: Lungs: Bilateral mid and lower lung zone airspace disease, increased on the right. Pleural spaces: Small bilateral pleural effusions, increased on the right. Heart/Mediastinum: Unremarkable. No cardiomegaly. Bones/joints: Unremarkable. XR/XR chest 1V portable [id number] IMPRESSION: 1. Bilateral mid and lower lung zone airspace disease, increased on the right. 2. Small bilateral pleural effusions, increased on the right.
--- NOTE | 2025-01-15 04:44 | ECG_ITS ---
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 Measurements Intervals [place] Rate: 65 P: 36 ND: 140 QRS: 43 QRSD: 98 T: 52 QT: 429 QTc: 448 Interpretive Statements SINUS RHYTHM Compared to ECG 01/08/2025 17:18:01 T-wave abnormality no longer present Electronically Signed On 01-15-2025 19:18:51 CDT by Spike Armstrong M.D. [email or web address]
--- NOTE | 2025-01-15 04:51 | W.ED.WEAKNES ---
Documented by User: Kay Malin MD 01/15/25 04:53 HPI - Weakness General: Chief complaint: Weakness Stated complaint: WEAKNESS Time Seen by Provider: 01/15/25 04:42 History of Present Illness: 59-year-old man with a history of chronic kidney disease, planned dialysis initiation in the near future, chronic hypoxemic respiratory failure on 5 L oxygen at baseline, hypertension, hyperlipidemia, bipolar disorder, diabetes who presents to the emergency room by ambulance this morning with weakness. He says he woke up and just did not feel right. He says he has some increased swelling in his legs. No fevers. No cough. No altered mental status. No focal motor deficits. No chest pain. No abdominal pain. No vomiting. Review of Systems Narrative: Constitutional symptoms: Negative except as documented in HPI. Skin symptoms: Negative except as documented in HPI. Eye symptoms: Negative except as documented in HPI. ENMT symptoms: Negative except as documented in HPI. Respiratory symptoms: Negative except as documented in HPI. Cardiovascular symptoms: Negative except as documented in HPI. Gastrointestinal symptoms: Negative except as documented in HPI. Genitourinary symptoms: Negative except as documented in HPI. Musculoskeletal symptoms: Negative except as documented in HPI. Neurologic symptoms: Negative except as documented in HPI. Psychiatric symptoms: Negative except as documented in HPI. Endocrine symptoms: Negative except as documented in HPI. PFSH ED PFSH: Medical History Volume overload Type 2 diabetes mellitus Glomerulosclerosis Renal biopsy: Pathology: Nodular diabetic glomerulosclerosis class III, ATN. (HFpEF) heart failure with preserved ejection fraction Poor compliance with medication CKD (chronic kidney disease), stage V Influenza Acute on chronic renal failure Acute hypoxemic respiratory failure Community acquired pneumonia HALIE (acute kidney injury) Non-STEMI (non-ST elevated myocardial infarction) Hyperglycemia Hammertoe of right foot Callus of heel Blurred vision CKD (chronic kidney disease) stage V requiring chronic dialysis Nicotine dependence, cigarettes, uncomplicated Bereavement Mother in February 2024 Cannabis use disorder, moderate, dependence Chronic post-traumatic stress disorder Bipolar II disorder Impaired visual perception Psychiatric care Anemia 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 Social History Smoking and tobacco/nicotine status: former use of tobacco/nicotine Alcohol intake: former Adopted: No Caregiver/support person: No Lives independently: Yes Household members: none Housing: Apartment Marital status: Number of children: 1 Highest education level completed: High School Graduate service: No Current occupational status: disabled Current occupational exposures/hazards: No Pets and animals: Yes Pets & animals: cat(s) and dog(s) Leisure activites: other Leisure activities details: play music Sexually active: No Do you think of yourself as: Straight/Heterosexual Current gender identity: Male Carmita/Scientologist: [employer]ian Special carmita needs: No Agree to transfusion: Yes Physical Exam Narrative: EXAM NARRATIVE: General: Alert, no acute distress. Skin: Warm, dry. Head: Normocephalic, atraumatic. Neck: Supple, trachea midline. Eye: Extraocular movements are intact. Ears, nose, mouth and throat: mucosa moist. Cardiovascular: Regular, Normal peripheral perfusion. 2+ pitting tibial edema Respiratory: Lungs are clear to auscultation, respirations are non-labored, breath sounds are equal, Symmetrical chest wall expansion. Gastrointestinal: Soft, Nontender, Non distended Musculoskeletal: Normal ROM, no deformity. Neurological: Alert and oriented, No focal neurological deficit observed. Psychiatric: Cooperative, appropriate mood & affect. Course Vital Signs: Vital signs: Vital Signs Temperature 98.3 F 01/15/25 04:41 Pulse Rate 85 01/15/25 10:08 Respiratory Rate 16 01/15/25 05:45 Blood Pressure 129/75 01/15/25 10:08 Pulse Oximetry 94 01/15/25 10:08 Oxygen Delivery Me thod Nasal Cannula 01/15/25 09:30 Oxygen Flow Rate 5 01/15/25 09:30 MDM - Weakness Medical Decision Making Medical decision making: Differential diagnosis for patient presenting with generalized weakness including but not limited to and based on the above HPI, review of systems and physical exam: Sepsis. Dehydration. Renal failure. Electrolyte abnormalities. Anemia. Congestive heart failure. Hypotension. Coronary syndrome. Hepatitis. Cirrhosis. Infections such as pneumonia, urinary tract infection, Tick bourne illness, Cellulitis, Viral infections including influenza and Covid-19. Lab Data 01/15/25 05:30 01/15/25 05:30 Radiology Impressions Chest X-Ray 01/15/25 04:43 IMPRESSION: 1. Bilateral mid and lower lung zone airspace disease, increased on the right. 2. Small bilateral pleural effusions, increased on the right. Laboratory Results WBC 10.71 10^3/uL (3.29-11.43) 01/15/25 05:30 RBC 2.82 10^6/uL (3.85-5.65) L 01/15/25 05:30 Hgb 8.10 g/dL (11.27-16.99) L 01/15/25 05:30 Hct 25.2 % (37-53) L 01/15/25 05:30 MCV 89.4 fl (82-101) 01/15/25 05:30 MCH 28.7 pg (27-33) 01/15/25 05:30 MCHC 32.1 g/dL (30-55) 01/15/25 05:30 RDW 13.2 % (12.1-15.1) 01/15/25 05:30 Plt Count 348 10^3/cmm (157-399) 01/15/25 05:30 MPV 9.9 fL (7.4-10.4) 01/15/25 05:30 Neut % (Auto) 75.0 % 01/15/25 05:30 Lymph % (Auto) 10.9 % 01/15/25 05:30 [place] % (Auto) 10.6 % 01/15/25 05:30 Eos % (Auto) 1.4 % 01/15/25 05:30 Baso % (Auto) 1.1 % 01/15/25 05:30 Neut # (Auto) 8.02 10^3/uL (1.8-7.7) H 01/15/25 05:30 Lymph # (Auto) 1.2 10^3/uL (0.8-4.8) 01/15/25 05:30 [place] # (Auto) 1.1 10^3/uL (0.2-0.9) H 01/15/25 05:30 Eos # (Auto) 0.2 10^3/uL (0.0-0.8) 01/15/25 05:30 Baso # (Auto) 0.1 10^3/uL (0.0-0.1) 01/15/25 05:30 Nucleated RBC % (auto) 0 % 01/15/25 05:30 Nucleated RBCs # 0.0 /100WBC 01/15/25 05:30 Sodium 136 mmol/L (136-145) 01/15/25 05:30 Potassium 4.5 mmol/L (3.5-5.1) 01/15/25 05:30 Chloride 98 mmol/L (98-107) 01/15/25 05:30 Carbon Dioxide 22 mmol/L (22-29) 01/15/25 05:30 Anion Gap 20.5 (5-19) H 01/15/25 05:30 BUN 77 mg/dL (6-20) H 01/15/25 05:30 Creatinine 8.0 mg/dL (0.7-1.2) H* 01/15/25 05:30 GFR Calculation 7.0 mL/min (90-130) L 01/15/25 05:30 Glucose 85 mg/dL (65-115) 01/15/25 05:30 Calculated Osmolality 304 mOsm/kg (285-295) H 01/15/25 05:30 Lactic Acid 0.8 mmol/L (0.5-2.2) 01/15/25 05:30 Calcium 7.4 mg/dL (8.5-10.5) L 01/15/25 05:30 Total Bilirubin 0.2 mg/dL (0.15-1.2) 01/15/25 05:30 AST 13 U/L (0-40) 01/15/25 05:30 ALT 6 U/L (0-41) 01/15/25 05:30 Alkaline Phosphatase 95 U/L (40-130) 01/15/25 05:30 Troponin T Baseline 328 ng/L (0-15) H* 01/15/25 05:30 Troponin T 120 Minute 302.5 ng/L (0-15) H 01/15/25 07:42 Delta Troponin T -25.5 ABS# (0-10) L 01/15/25 07:42 NT-Pro-B Natriuret Pep 30753 pg/mL (0-125) H 01/15/25 05:30 Total Protein 6.5 g/dL (6.6-8.7) L 01/15/25 05:30 Albumin 3.1 g/dL (3.5-5.2) L 01/15/25 05:30 Globulin 3.4 g/dL (1.3-4.6) 01/15/25 05:30 Procalcitonin 0.55 ng/mL (0-0.5) H 01/15/25 05:30 Influenza A (PCR) Negative (Negative) 01/15/25 05:30 Influenza Type B (PCR) Negative (Negative) 01/15/25 05:30 RSV (PCR) Negative (Negative) 01/15/25 05:30 SARS-CoV-2 (PCR) Negative (Negative) 01/15/25 05:30 Discharge Plan Discharge Patient Disposition: Admitted As Inpatient Admit Provider: Vernon Lora Clinical Impression: (HFpEF) heart failure with preserved ejection fraction, CKD (chronic kidney disease), stage V, Poor compliance with medication, Edema, End-stage renal disease (ESRD) Condition: Stable Sign Out Sign Out Data: Patient Sign Out occurred on 01/15/25 at 05:38. Patient's care was discussed, and care was transferred from Kay Malin MD to Brian Escudero DO. Coding Level of Care Code ED [employer] Stewardess for Chg Fwd Related Data Home Medications ?Medication ?Instructions ?Recorded ?Confirmed pantoprazole 40 mg tablet,delayed 40 mg PO DAILY 12/06/24 01/15/25 release bupropion HCl 150 mg 24 hr tablet, 150 mg PO DAILY 12/07/24 01/15/25 extended release ezetimibe 10 mg tablet 10 mg PO DAILY 01/03/25 01/15/25 albuterol sulfate 2.5 mg/3 mL 2.5 mg inhalation Q4H PRN 01/06/25 01/15/25 (0.083 %) solution for nebulization Shortness Of Breath atorvastatin 80 mg tablet 80 mg PO QPM 01/06/25 01/15/25 Previous Rx's ?Medication ?Instructions ?Recorded aspirin 81 mg tablet,delayed 81 mg PO DAILY #90 tabs 10/06/24 release divalproex 250 mg tablet,delayed 250 mg PO .7 pm #30 tabs 11/26/24 release (Depakote) glipizide 5 mg tablet, extended 5 mg PO DAILY #30 tabs 12/25/24 release 24 hr bumetanide 2 mg tablet 2 mg PO BIDAC #60 tabs 01/13/25 carvedilol 6.25 mg tablet 6.25 mg PO BID 30 days #60 tabs 01/13/25 fluconazole 200 mg tablet 200 mg PO DAILY 14 days #14 tabs 01/13/25 (Diflucan) nifedipine 30 mg tablet,extended 30 mg PO BEDTIME 30 days #30 tabs 01/13/25 release 24 hr oxycodone-acetaminophen 5 mg-325 1 tab PO Q4H PRN Severe Pain 7 01/13/25 mg tablet days #20 tabs sevelamer carbonate 800 mg tablet 800 mg PO TID 30 days #90 tabs 01/13/25 sodium bicarbonate 650 mg tablet 650 mg PO TID 30 days #90 tabs 01/13/25 tamsulosin 0.4 mg capsule (Flomax) 0.4 mg PO DAILY #30 caps 01/14/25 Allergies Allergy/AdvReac Type Severity Reaction Status Date / Time No Known Allergies Allergy Verified 01/15/25 04:45 Documented by User: Brian Escudero DO 01/15/25 11:17 HPI - Weakness General: Chief complaint: Weakness Stated complaint: WEAKNESS Time Seen by Provider: 01/15/25 04:42 PFSH ED PFSH: Medical History Volume overload Type 2 diabetes mellitus Glomerulosclerosis Renal biopsy: Pathology: Nodular diabetic glomerulosclerosis class III, ATN. (HFpEF) heart failure with preserved ejection fraction Poor compliance with medication CKD (chronic kidney disease), stage V Influenza Acute on chronic renal failure Acute hypoxemic respiratory failure Community acquired pneumonia HALIE (acute kidney injury) Non-STEMI (non-ST elevated myocardial infarction) Hyperglycemia Hammertoe of right foot Callus of heel Blurred vision CKD (chronic kidney disease) stage V requiring chronic dialysis Nicotine dependence, cigarettes, uncomplicated Bereavement Mother in February 2024 Cannabis use disorder, moderate, dependence Chronic post-traumatic stress disorder Bipolar II disorder Impaired visual perception Psychiatric care Anemia 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 Social History Smoking and tobacco/nicotine status: former use of tobacco/nicotine Alcohol intake: former Adopted: No Caregiver/support person: No Lives independently: Yes Household members: none Housing: Apartment Marital status: Number of children: 1 Highest education level completed: High School Graduate service: No Current occupational status: disabled Current occupational exposures/hazards: No Pets and animals: Yes Pets & animals: cat(s) and dog(s) Leisure activites: other Leisure activities details: play music Sexually active: No Do you think of yourself as: Straight/Heterosexual Current gender identity: Male Carmita/Scientologist: [employer]ian Special carmita needs: No Agree to transfusion: Yes Course Vital Signs: Vital signs: Vital Signs Temperature 98.3 F 01/15/25 04:41 Pulse Rate 85 01/15/25 10:08 Respiratory Rate 16 01/15/25 05:45 Blood Pressure 129/75 01/15/25 10:08 Pulse Oximetry 94 01/15/25 10:08 Oxygen Delivery Me thod Nasal Cannula 01/15/25 09:30 Oxygen Flow Rate 5 01/15/25 09:30 MDM - Weakness Medical Decision Making Medical decision making: Differential diagnosis for patient presenting with generalized weakness including but not limited to and based on the above HPI, review of systems and physical exam: Sepsis. Dehydration. Renal failure. Electrolyte abnormalities. Anemia. Congestive heart failure. Hypotension. Coronary syndrome. Hepatitis. Cirrhosis. Infections such as pneumonia, urinary tract infection, Tick bourne illness, Cellulitis, Viral infections including influenza and Covid-19. Patient care assumed at change of shift troponin is markedly elevated he has worsening lower extremity edema and decompensated congestive heart failure complicated by his chronic kidney disease. Reviewing his previous hospitalization he has had significant behavioral issues in the past regarding his care. See the previous discharge summary. These the same issues surfaced again and the discussion surrounding the need for admission. Patient advised he likely will need long-term dialysis due to his heart failure and worsening chronic kidney disease. He is angry that he needs to be hospitalized again. Attempted to review this with him causes however situation quickly deteriorated despite attempts to redirect the patient. Will offer admission. Or waiting for the patient to decide if he wishes to be admitted or not. Return to the room with nurse accompanying me. Patient was verbally aggressive used excessive profane language and berating both myself and the nurse. Patient at times made subtle veiled threats telling as I know what you need . Ultimately patient did agree to admission. While we are discussing with the patient Dr. Lora came to the room. I introduced Dr. Lora to the patient and excused myself told the patient Dr. Lora would be taking over his care. I asked the nurse to remain in the room as a witness for the conversation with Dr. Lora and the patient due to the nature of interactions we had experienced up to that point. Medical Records I reviewed the patient's medical records. Lab Data I reviewed the patient's lab results. 01/15/25 05:30 01/15/25 05:30 Radiology Impressions Chest X-Ray 01/15/25 04:43 IMPRESSION: 1. Bilateral mid and lower lung zone airspace disease, increased on the right. 2. Small bilateral pleural effusions, increased on the right. Laboratory Results WBC 10.71 10^3/uL (3.29-11.43) 01/15/25 05:30 RBC 2.82 10^6/uL (3.85-5.65) L 01/15/25 05:30 Hgb 8.10 g/dL (11.27-16.99) L 01/15/25 05:30 Hct 25.2 % (37-53) L 01/15/25 05:30 MCV 89.4 fl (82-101) 01/15/25 05:30 MCH 28.7 pg (27-33) 01/15/25 05:30 MCHC 32.1 g/dL (30-55) 01/15/25 05:30 RDW 13.2 % (12.1-15.1) 01/15/25 05:30 Plt Count 348 10^3/cmm (157-399) 01/15/25 05:30 MPV 9.9 fL (7.4-10.4) 01/15/25 05:30 Neut % (Auto) 75.0 % 01/15/25 05:30 Lymph % (Auto) 10.9 % 01/15/25 05:30 [place] % (Auto) 10.6 % 01/15/25 05:30 Eos % (Auto) 1.4 % 01/15/25 05:30 Baso % (Auto) 1.1 % 01/15/25 05:30 Neut # (Auto) 8.02 10^3/uL (1.8-7.7) H 01/15/25 05:30 Lymph # (Auto) 1.2 10^3/uL (0.8-4.8) 01/15/25 05:30 [place] # (Auto) 1.1 10^3/uL (0.2-0.9) H 01/15/25 05:30 Eos # (Auto) 0.2 10^3/uL (0.0-0.8) 01/15/25 05:30 Baso # (Auto) 0.1 10^3/uL (0.0-0.1) 01/15/25 05:30 Nucleated RBC % (auto) 0 % 01/15/25 05:30 Nucleated RBCs # 0.0 /100WBC 01/15/25 05:30 Sodium 136 mmol/L (136-145) 01/15/25 05:30 Potassium 4.5 mmol/L (3.5-5.1) 01/15/25 05:30 Chloride 98 mmol/L (98-107) 01/15/25 05:30 Carbon Dioxide 22 mmol/L (22-29) 01/15/25 05:30 Anion Gap 20.5 (5-19) H 01/15/25 05:30 BUN 77 mg/dL (6-20) H 01/15/25 05:30 Creatinine 8.0 mg/dL (0.7-1.2) H* 01/15/25 05:30 GFR Calculation 7.0 mL/min (90-130) L 01/15/25 05:30 Glucose 85 mg/dL (65-115) 01/15/25 05:30 Calculated Osmolality 304 mOsm/kg (285-295) H 01/15/25 05:30 Lactic Acid 0.8 mmol/L (0.5-2.2) 01/15/25 05:30 Calcium 7.4 mg/dL (8.5-10.5) L 01/15/25 05:30 Total Bilirubin 0.2 mg/dL (0.15-1.2) 01/15/25 05:30 AST 13 U/L (0-40) 01/15/25 05:30 ALT 6 U/L (0-41) 01/15/25 05:30 Alkaline Phosphatase 95 U/L (40-130) 01/15/25 05:30 Troponin T Baseline 328 ng/L (0-15) H* 01/15/25 05:30 Troponin T 120 Minute 302.5 ng/L (0-15) H 01/15/25 07:42 Delta Troponin T -25.5 ABS# (0-10) L 01/15/25 07:42 NT-Pro-B Natriuret Pep 71752 pg/mL (0-125) H 01/15/25 05:30 Total Protein 6.5 g/dL (6.6-8.7) L 01/15/25 05:30 Albumin 3.1 g/dL (3.5-5.2) L 01/15/25 05:30 Globulin 3.4 g/dL (1.3-4.6) 01/15/25 05:30 Procalcitonin 0.55 ng/mL (0-0.5) H 01/15/25 05:30 Influenza A (PCR) Negative (Negative) 01/15/25 05:30 Influenza Type B (PCR) Negative (Negative) 01/15/25 05:30 RSV (PCR) Negative (Negative) 01/15/25 05:30 SARS-CoV-2 (PCR) Negative (Negative) 01/15/25 05:30 All radiology interpretation(s) finalized by discharge Discharge Plan Discharge Patient Disposition: Admitted As Inpatient Admit Provider: Vernon Lora Clinical Impression: (HFpEF) heart failure with preserved ejection fraction, CKD (chronic kidney disease), stage V, Poor compliance with medication, Edema, End-stage renal disease (ESRD) Condition: Stable Sign Out Sign Out Data: Patient Sign Out occurred on 01/15/25 at 05:38. Patient's care was discussed, and care was transferred from Kay Malin MD to Brian Escudero DO. Coding Level of Care Code ED [employer] Stewardess for Chg Fwd Related Data Home Medications ?Medication ?Instructions ?Recorded ?Confirmed pantoprazole 40 mg tablet,delayed 40 mg PO DAILY 12/06/24 01/15/25 release bupropion HCl 150 mg 24 hr tablet, 150 mg PO DAILY 12/07/24 01/15/25 extended release ezetimibe 10 mg tablet 10 mg PO DAILY 01/03/25 01/15/25 albuterol sulfate 2.5 mg/3 mL 2.5 mg inhalation Q4H PRN 01/06/25 01/15/25 (0.083 %) solution for nebulization Shortness Of Breath atorvastatin 80 mg tablet 80 mg PO QPM 01/06/25 01/15/25 Previous Rx's ?Medication ?Instructions ?Recorded aspirin 81 mg tablet,delayed 81 mg PO DAILY #90 tabs 10/06/24 release divalproex 250 mg tablet,delayed 250 mg PO .7 pm #30 tabs 11/26/24 release (Depakote) glipizide 5 mg tablet, extended 5 mg PO DAILY #30 tabs 12/25/24 release 24 hr bumetanide 2 mg tablet 2 mg PO BIDAC #60 tabs 01/13/25 carvedilol 6.25 mg tablet 6.25 mg PO BID 30 days #60 tabs 01/13/25 fluconazole 200 mg tablet 200 mg PO DAILY 14 days #14 tabs 01/13/25 (Diflucan) nifedipine 30 mg tablet,extended 30 mg PO BEDTIME 30 days #30 tabs 01/13/25 release 24 hr oxycodone-acetaminophen 5 mg-325 1 tab PO Q4H PRN Severe Pain 7 01/13/25 mg tablet days #20 tabs sevelamer carbonate 800 mg tablet 800 mg PO TID 30 days #90 tabs 01/13/25 sodium bicarbonate 650 mg tablet 650 mg PO TID 30 days #90 tabs 01/13/25 tamsulosin 0.4 mg capsule (Flomax) 0.4 mg PO DAILY #30 caps 01/14/25 Allergies Allergy/AdvReac Type Severity Reaction Status Date / Time No Known Allergies Allergy Verified 01/15/25 04:45
[2025-01-15 05:41] LABS: Basophils # 0.1 10^3/uL (0.0-0.1); Basophils % 1.1 %; Eosinophils # 0.2 10^3/uL (0.0-0.8); Eosinophils % 1.4 %; Hematocrit 25.2 % (37-53); Lymphocytes # 1.2 10^3/uL (0.8-4.8); Lymphocytes % 10.9 %; Mean Corpuscular HGB Conc 32.1 g/dL (30-55); Mean Corpuscular Hemoglobin 28.7 pg (27-33); Mean Corpuscular Volume 89.4 fl (82-101); Mean Platelet Volume 9.9 fL (7.4-10.4); Monocytes # 1.1 10^3/uL (0.2-0.9); Monocytes % 10.6 %; Neutrophils # 8.02 10^3/uL (1.8-7.7); Nucleated Red Blood Cells % 0 %; Platelet Count 348 10^3/cmm (157-399); Red Blood Count 2.82 10^6/uL (3.85-5.65); Red Cell Distribution Width 13.2 % (12.1-15.1); White Blood Count 10.71 10^3/uL (3.29-11.43)
[2025-01-15 06:01] LABS: Lactic Sepsis W/Reflex 0.8 mmol/L (0.5-2.2)
[2025-01-15 06:02] LABS: Troponin(5th) Baseline 328 ng/L (0-15)
[2025-01-15 06:04] LABS: Alanine Aminotransferase 6 U/L (0-41); Albumin Level 3.1 g/dL (3.5-5.2); Alkaline Phosphatase 95 U/L (40-130); Anion Gap 20.5 (5-19); Aspartate Amino Transferase 13 U/L (0-40); Blood Urea Nitrogen 77 mg/dL (6-20); Calcium 7.4 mg/dL (8.5-10.5); Carbon Dioxide 22 mmol/L (22-29); Chloride 98 mmol/L (98-107); Creatinine Clr Calc Pharmacy 10.7188; Globulin 3.4 g/dL (1.3-4.6); Glucose 85 mg/dL (65-115); Osmolality Calculated 304 mOsm/kg (285-295); Potassium 4.5 mmol/L (3.5-5.1); Sodium 136 mmol/L (136-145); Total Bilirubin 0.2 mg/dL (0.15-1.2); Total Protein 6.5 g/dL (6.6-8.7)
[2025-01-15 06:36] LABS: NT Pro B Type Natriuretic Pept 19620 pg/mL (0-125); Procalcitonin 0.55 ng/mL (0-0.5)
[2025-01-15 06:38] LABS: Influenza A NEGATIVE (Negative); Influenza B NEGATIVE (Negative); Respiratory Syncytial Virus Ce NEGATIVE (Negative); SARS-CoV-2 PCR NEGATIVE (Negative)
--- NOTE | 2025-01-15 06:44 | ECG_ITS ---
[facility] Test Date: 2025-01-15 Pat Name: Joseph Baker Department: Room: Gender: Male Compensation Vice President: : 1965 Requested By: Kay Lewis Order Number: [id number] Miles MD: Spike Armstrong M.D. Measurements Intervals [place] Rate: 79 P: 18 CO: 125 QRS: 44 QRSD: 96 T: 58 QT: 404 QTc: 464 Interpretive Statements SINUS RHYTHM Compared to ECG 01/15/2025 05:12:29 No significant changes Electronically Signed On 01-15-2025 19:27:22 CDT by Spike Armstrong M.D. [email or web address]
--- NOTE | 2025-01-15 07:22 | PC.PHAR ---
Patient had some big changes during last discharge on 01/13/25. NEW MEDS bumetanide 2mg,carvedilol 6.25, nifedipine 30mg, oxycodone 5-325,sevelamer 800,sodium carb, STOPPED Amlodipine 10, bu,etanide 1mg, clonidine 0.1, furosemide 40, hydralazine 10, hydrochlorothiazide 25, lisinopril 40,metprolol succ 25
--- NOTE | 2025-01-15 08:00 | PC.NURSE ---
THIS NURSE ASSISTED DR. BOX IN DISCUSSING WITH PT THE NEED FOR ADMISSION. PT WAS EDUCATED BY DR. BOX ON THE PT NEEDING TO BE ADMITTED AND OFFERED HIM THE OPTION TO STAY. PT BECAME ANGRY WITH DR. BOX. PT WAS OFFERED THE OPTION TO LEAVE IF HE DID NOT WANT TO STAY. PT CONTINUED TO BECOME ANGRY AND STATED OF COURSE YOU ARE GOING TO OFFER ME TO LEAVE. PT WAS EDUCATED THAT EVERY PT WAS GIVEN A CHOICE TO STAY OR LEAVE AND THAT THE HOSPITAL COULD NOT FORCE HIM TO STAY. PT CONTINUED TO BE ANGRY AND CALLED DR. BOX A CURT IDIOT. DR. BOX CONTINUED TO EDUCATE PT ON THE OPTION TO STAY OR TO LEAVE AND PT CONTINUED TO AVOID THE QUESTION. PT STATED IF YOU WANT TO HAVE A TALK MAN TO MAN ABOUT THIS WE CAN. BUT YOU DO NOT SEEM READY. I DON'T HAVE TO BE TALKED TO BY SOMEONE WITH A [place] PHD AND WHATEVER SHE IS, HIS NURSE OR SOMETHING. THIS NURSE EDUCATED PT THAT THE ONLY THING BEING DISCUSSED WAS HIS MEDICAL CARE AND THERE NEEDED TO BE A DECISION MADE REGARDING WHETHER OR NOT HE WANTED TO STAY. PT STATED I HAVE ALREADY TOLD YOU BOTH MY ANSWER. I AM NOT FUCKING REPEATING MYSELF. THIS NURSE AND DR. BOX BOTH EDUCATED PT THAT HE HAD NOT GIVEN A CLEAR ANSWER REGARDING ADMISSION. PT CONTINUED TO NOT ANSWER. THIS NURSE ASKED AGAIN AND SO DID DR. BOX. PT REMAINED SILENT.
[2025-01-15 08:17] LABS: Troponin 5 2HR 302.5 ng/L (0-15); Troponin 5 2HR Delta -25.5 ABS# (0-10)
--- NOTE | 2025-01-15 10:44 | P.HP_ITS ---
Providers/Chief Complaint 2 Admitting Physician: Vernon Lora Primary Care Provider: Pierce Justice MD Chief Complaint: WEAKNESS History of Present Illness 59-year-old gentleman with history of HFpEF, with chronic respiratory failure, chronically on 5 L of oxygen, chronic kidney disease, DM2, anemia, HTN, bipolar disorder, other medical problems, former smoker, recently hospitalized discharged on 01/13 after treatment of decompensated congestive heart failure in the setting of chronic kidney disease. Underwent optimization of volume status with IV diuresis requiring continuous Lasix infusion. He returns to ER early this morning with generalized weakness, per report not feeling right. In ER with finding of significant bilateral lower extremity edema. Renal function with worsening, creatinine up to 8, BUN 77. Baseline troponin with elevation 328. Afebrile, without leukocytosis. Chest x-ray with bilateral mid and lower lung zone airspace disease increased on the right. Small bilateral pleural effusions increased on the right. In the ED he allows for limited discussion about the worsening renal function, congestive heart failure decompensation with intermittently irritable mood, interjecting, answering questions with questions, raising his voice, becoming irritable with ER provider and nursing staff, stating if they cannot handle a patient being upset, they need to choose a different profession . But intermittently apologizing and crying. Discussing regarding worsening renal function, and whether he had had prior discussions and consideration of dialysis, he states he definitely has considered it and that time may be coming that he may need it. Discussing the challenges with him being unable to follow- up with nephrology in the area he is aware, interjecting states they would not feed me , and that because he kept telling them they needed to feed him, one person that controls the practice has prevented him from following up and allegedly has told other dialysis centers in the area not to see him. He states that he might do home dialysis, however, does confirm that he lives alone conceding this may not be an option. If unable to reestablish follow-up in the area he has not considered any other plans. However, on considering his overall goals of care and whether he considered hospice care accuses us of being condescending, stating mockingly thank you for telling me I have the option of not doing it . Became upset about being asked about taking his home medications and declined to answer any further questions. Review of Systems 2 General: Reports: Other (He answers only a few questions.) Const: Denies: fever(s) Card: Reports: edema GI: Denies: abdominal pain, nausea or vomiting Medications/Allergies Home Medications ?Medication ?Instructions ?Recorded ?Confirmed ?Last Taken ?Type aspirin 81 mg tablet,delayed 81 mg PO DAILY #90 tabs 1 12/07/23 01/15/25 01/15/25 Rx release divalproex 250 mg tablet,delayed 250 mg PO .7 pm #30 t abs 11/26/24 01/15/25 01/15/25 Rx release (Depakote) pantoprazole 40 mg tablet,delayed 40 mg PO DAILY 12/0601/15/25 01/06/25 History release glipizide 5 mg tablet, extended 5 mg PO DAILY #30 tabs 12/25/24 01/15/25 01/15/25 Rx release 24 hr ezetimibe 10 mg tablet 10 mg PO DAILY 01/03/2512/2901/15/25 History albuterol sulfate 2.5 mg/3 mL 2.5 mg inhalation Q4H IL N 01/06/25 01/15/25 01/15/25 History (0.083 %) solution for nebulization Shortness Of Breat h atorvastatin 80 mg tablet 80 mg PO QPM 01/06/2501/15/25 History bumetanide 2 mg tablet 2 mg PO BIDAC #60 tabs 01/1301/15/25 01/15/25 Rx carvedilol 6.25 mg tablet 6.25 mg PO BID 30 days #60 t abs 01/13/25 01/15/25 Unknown Rx fluconazole 200 mg tablet 200 mg PO DAILY 14 days #14 tabs 01/13/25 01/15/25 01/15/25 Rx (Diflucan) nifedipine 30 mg tablet,extended 30 mg PO BEDTIME 30 d ays #30 tabs 01/13/25 01/15/25 01/15/25 Rx release 24 hr oxycodone-acetaminophen 5 mg-325 1 tab PO Q4H PRN Jeanne re Pain 7 01/13/25 01/15/25 01/15/25 Rx mg tablet days #20 tabs sevelamer carbonate 800 mg tablet 800 mg PO TID 30 day s #90 tabs 01/13/25 01/15/25 Unknown Rx sodium bicarbonate 650 mg tablet 650 mg PO TID 30 days #90 tabs 01/13/25 01/15/25 Unknown Rx tamsulosin 0.4 mg capsule (Flomax) 0.4 mg PO DAILY #30 caps 01/14/25 01/15/25 01/15/25 Rx Allergies Allergy/AdvReac Type Severity Reaction Status Date / Time No Known Allergies Allergy Verified 01/15/25 04:45 PFSH Acute 2 PFSH: Medical History Volume overload Type 2 diabetes mellitus Glomerulosclerosis Renal biopsy: Pathology: Nodular diabetic glomerulosclerosis class III, ATN. (HFpEF) heart failure with preserved eje ction fraction Poor compliance with medication CKD (chronic kidney disease), stage V Influenza Acute on chronic renal failure Acute hypoxemic respiratory failure Community acquired pneumonia HALIE (acute kidney injury) Non-STEMI (non-ST elevated myocardial infarction) Hyperglycemia Hammertoe of right foot Callus of heel Blurred vision CKD (chronic kidney disease) stage V requiring chronic dialysis Nicotine dependence, cigarettes, uncomplicated Bereavement Mother in February 2024 Cannabis use disorder, moderate, dependence Chronic post-traumatic stress disorder Bipolar II disorder Impaired visual perception Psychiatric care Anemia 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 Social History Smoking and tobacco/nicotine status: former use of tobacco/nicotine Alcohol intake: former Adopted: No Caregiver/support person: No Lives independently: Yes Household members: none Housing: Apartment Marital status: Number of children: 1 Highest education level completed: High School Graduate service: No Current occupational status: disabled Current occupational exposures/hazards: No Pets and animals: Yes Pets & animals: cat(s) and dog(s) Leisure activites: other Leisure activities details: play music Sexually active: No Do you think of yourself as: Straight/Heterosexual Current gender identity: Male Carmita/Judaism: Episcopal Special carmita needs: No Agree to transfusion: Yes Vitals/I&O/Wt Last Vital Signs Temp 98.3 F 01/15/25 04:41 Pulse 85 01/15/25 10:08 Resp 16 01/15/25 05:45 BP 129/75 01/15/25 10:08 Pulse Ox 94 01/15/25 10:08 O2 Del Method Nasal Cannula 01/15/25 09:30 O2 Flow Rate 5 01/15/25 09:30 01/14/25 01/15/25 01/15/25 22:59 06:59 14:59 Intake Total 0 / 0 Balance 0 / 0 Weight last 48 hrs Weight 90.265 kg Physical Exam 2 Const: COMMON NORMALS: patient oriented x3 and alert GENERAL APPEARANCE: c ooperative ORIENTATION/CONSCIOUSNESS: Yes awake HENMT: COMMON NORMALS: oropharynx normal Neck/C-Spine: COMMON NORMALS: no JVD Resp: COMMON NORMALS: normal respiratory effort and clear to auscultation bilaterally AUSCULTATION: clear to auscultation bilaterally Cardio: COMMON NORMALS: no JVD, regular rhythm, S1 normal heart sound present, S2 normal heart sound present and No murmurs present (Cardio) RHYTHM: regular rhythm HEART SOUNDS: S1 normal heart sound present and S2 normal heart sound present GI: COMMON NORMALS: Normal to inspection, nondistended, normoactive bowel sounds present, Soft to palpation and non-tender PALPATION: Yes Soft to palpation Extremity: COMMON NORMALS: no joint enlargement GENERAL: Yes edema (2+ BLLE) Neuro: COMMON NORMALS: patient oriented x3 and moves all extremities S ENSORIUM/ORIENTATION: Yes alert Psych: ATTITUDE: Yes uncooperative and Yes evasive MOOD & AFFECT: Yes irritable and Yes Labile affect present Skin: COMMON NORMALS: no rashes or lesions noted GENERAL SKIN EXAM: no rashes or lesions noted Data 01/15/25 05:30 01/15/25 05:30 Micro: Microbiology 01/15/25 05:30 Blood Culture - Preliminary Blood SPECIMEN COLLECTED 01/15/25 05:30 Blood Culture - Preliminary Blood SPECIMEN COLLECTED A&P Assessment and plan (1) End-stage renal disease (ESRD): Progressing to acute renal failure, end-stage kidney disease with decompensation of congestive heart failure. Returning to the ER with lower extremity edema, again with decompensated HFpEF despite discharge just 2 days ago after requiring treatment with IV diuretic infusion, with further worsening renal parameters, noted BUN of 77, creatinine 8, anion gap 20.5. NT proBNP 19,620. He is agreeable to nephrology consultation although had previously lost ability to follow-up with nephrology in the area. Patient had declined to discuss goals of care in detail, however, has indicated prior discussion consideration of hemodialysis, and is not considering any other option. He does have limited social support, he is speaking about home dialysis, although with limited vision, lack of social support this may not be an option. Discussed these considerations with mems device scientist. Appreciate consultation. With reassessment and discussion with him nephrology recommending initiation of dialysis and placement of tunneled dialysis catheter. Discussed with surgeon, counter caser, appreciate consultation. Reassess CBC, chemistry. Reviewed ER provider note, discussed with ER provider. Obtain records from [facility] where he was previously transferred due to renal failure and for kidney biopsy. (2) (HFpEF) heart failure with preserved ejection fraction: Decompensated HFpEF with progression of chronic kidney disease appears to be reaching end-stage kidney disease, decompensation despite treatment with IV diuretic infusion, discharged 2 days ago. NT-proBNP 19,620. With lower extremity edema. Generalized weakness. Requiring 3 L of oxygen, chronically on 5. With noted troponin elevation, higher than prior, 328 baseline, 202 2-hour, 6- hour 310. Discussed with mems device scientist, discussed with operating room assistant. Appreciate consultation. Unclear whether he has been taking his medications. Will switch to IV Lasix for now. Monitor for risk of electrolyte deficiency with IV diuresis. As per nephrology assessment preparations for renal replacement therapy. Fluid restriction 1000 mL. (3) Elevated troponin: Generalized weakness, did not feel right prior to presentation. Troponin noted with elevation 328 at baseline, at 2 hours 302, at 6 hours 310. Although this is also in the setting of worsening renal function with progression to ESRD. Reviewed prior stress test back in July. Discussed with operating room assistant. Appreciate consultation. Continue aspirin, statin, beta-coco. Monitor on telemetry with risk of arrhythmia. Reviewed chemistry. Reassess chemistry. Check magnesium. (4) Lack of social support: Lives alone. With limited vision. Has had some support from [facility] package line relief operator. Discussed with counter caser, appreciate consultation. Plan Bipolar disorder: With mood changes noted in ER, including irritable, upset, apologizing and crying. Discussed with psychiatrist, appreciate psychiatry assessment regarding bipolar disorder, adjustment difficulties also in the setting of limited social support, end-stage medical condition. Becoming irritable with staff, becoming irritable and raising his voice to nursing staff on CSU, refusing to allow his medications for safekeeping per usual practice. Raising his voice and becoming irritable with the [facility] package line relief operator. Anemia: Platelets noted normal. Hemoglobin 8.1. Recheck blood counts. Follow- up iron studies. DM2: Continue diabetic diet. Monitor POC glucose. SSI insulin. HTN: Monitor blood pressures. Continue Coreg. PDMP PDMP Reviewed: Not Reviewed Attestations 2 Medical Necessity Statement*: Admission over 2 midnights anticipated for assessment management of progression to acute renal failure, with decompensated congestive heart failure, progression to end-stage kidney disease and is gentleman with limited social support, additional comorbidities as above. Diagnoses End-stage renal disease (ESRD) N18.6 (HFpEF) heart failure with preserved ejection fraction I50.30 Elevated troponin R79.89 Lack of social support Z65.8
--- NOTE | 2025-01-15 10:49 | ECG_ITS ---
[facility] Date: 2025-01-15 Pat Name: Joseph Baker Department: Room: 111 Gender: Male Collateral Clerk: : 1965 Requested By: Kay Lewis Order Number: [id number] Miles MD: Spike Armstrong M.D. Measurements Intervals [place] Rate: 88 P: 11 NV: 119 QRS: 35 QRSD: 89 T: 49 QT: 366 QTc: 443 Interpretive Statements SINUS RHYTHM WITH SHORT NV INTERVAL Compared to ECG 01/15/2025 07:10:57 Short NV interval now present Electronically Signed On 01-15-2025 19:26:58 CDT by Spike Armstrong M.D. [email or web address]
[2025-01-15] MEDS: ezetimibe 10 mg Tablet PO (11:38)
[2025-01-15] MEDS: heparin 5,000 unit/mL INJ 1 mL 5000 UNIT SUBCUT ×2 (11:38→21:52)
[2025-01-15] MEDS: pantoprazole DR 40 mg Tablet PO (11:38)
[2025-01-15] MEDS: tamsulosin 0.4 mg Capsule PO (11:38)
--- NOTE | 2025-01-15 11:51 | PC.NURSE ---
Received pt from ER Pt is alert,orientedx4,denies any pain,he looked anxious and teary eyed when he talks about his life story.Pt stated, I'm scared and i just lost my mom and brother. Pt seemed cooperative to nurse, had occasional episodes mild anger in face. Pt stated he has vision loss and swelling over body since 4 days ago. call light provided. basic needs provided.
[2025-01-15 12:07] LABS: Troponin 5 6HR Delta -17.4 ng/L (0-12)
[2025-01-15 12:08] LABS: Troponin 5 6HR 310.6 ng/L (0-15)
[2025-01-15 12:23] LABS: Glucose Point of Care 78 mg/dL (70-110)
--- NOTE | 2025-01-15 12:26 | PM.CONSULT ---
Providers/Reason For Consult Consulting Physician/Specialty*: alfredo appiah md/ telenephrology Reason for Consult*: progressive ckd Requesting Physician: Dr Luis Attending Physician: Vernon Lora Primary Care Provider: Pierce Justice MD History of Present Illness History of Present Illness Joseph Baker is a 59 year old male history of hypertension, HFpEF, hyperlipidemia, progressive renal insufficiency, recent diagnosis of bipolar. The patient has been hospitalized multiple times over the last month. The patient was transferred to [facility] for renal biopsy last month per chart he revealed nodular diabetic glomerulosclerosis class III and ATN. Unfortunately renal function continues to deteriorate he is swollen and short of breath not feeling well has significant scrotal edema nausea patient comes back to the emergency room wanting to start dialysis as he realizes he is not doing well. He has nausea fatigue itching cramps and weakness. Review of Systems Narrative: Swollen short of breath dyspnea on exertion orthopnea itching cramps nausea and uremic symptoms Medications/Allergies Home Medications ?Medication ?Instructions ?Recorded ?Confirmed ?Last Taken ?Type aspirin 81 mg tablet,delayed 81 mg PO DAILY #90 tabs 10/06/24 01/15/25 01/15/25 Rx release divalproex 250 mg tablet,delayed 250 mg PO .7 pm #30 tabs 11/26/24 01/15/25 01/15/25 Rx release (Depakote) pantoprazole 40 mg tablet,delayed 40 mg PO DAILY 12/06/24 01/15/25 01/06/25 History release bupropion HCl 150 mg 24 hr tablet, 150 mg PO DAILY 12/07/24 01/15/25 01/15/25 History extended release glipizide 5 mg tablet, extended 5 mg PO DAILY #30 tabs 12/25/24 01/15/25 01/15/25 Rx release 24 hr ezetimibe 10 mg tablet 10 mg PO DAILY 01/03/25 01/15/25 01/15/25 History albuterol sulfate 2.5 mg/3 mL 2.5 mg inhalation Q4H PRN 01/06/25 01/15/25 01/15/25 History (0.083 %) solution for nebulization Shortness Of Breath atorvastatin 80 mg tablet 80 mg PO QPM 01/06/25 01/15/25 01/15/25 History bumetanide 2 mg tablet 2 mg PO BIDAC #60 tabs 01/13/25 01/15/25 01/15/25 Rx carvedilol 6.25 mg tablet 6.25 mg PO BID 30 days #60 tabs 01/13/25 01/15/25 Unknown Rx fluconazole 200 mg tablet 200 mg PO DAILY 14 days #14 tabs 01/13/25 01/15/25 01/15/25 Rx (Diflucan) nifedipine 30 mg tablet,extended 30 mg PO BEDTIME 30 days #30 tabs 01/13/25 01/15/25 01/15/25 Rx release 24 hr oxycodone-acetaminophen 5 mg-325 1 tab PO Q4H PRN Severe Pain 7 01/13/25 01/15/25 01/15/25 Rx mg tablet days #20 tabs sevelamer carbonate 800 mg tablet 800 mg PO TID 30 days #90 tabs 01/13/25 01/15/25 Unknown Rx sodium bicarbonate 650 mg tablet 650 mg PO TID 30 days #90 tabs 01/13/25 01/15/25 Unknown Rx tamsulosin 0.4 mg capsule (Flomax) 0.4 mg PO DAILY #30 caps 01/14/25 01/15/25 01/15/25 Rx Allergies Allergy/AdvReac Type Severity Reaction Status Date / Time No Known Allergies Allergy Verified 01/15/25 04:45 Current Medications Generic Name Dose Route Start Last Admin Trade Name Freq PRN Reason Stop Dose Admin Bupropion HCl 150 mg 01/15/25 10:45 01/15/25 10:54 Bupropion Xl (24 Hr) 150 Mg Tablet PO Not Given DAILY EVELIO Ezetimibe 10 mg 01/15/25 10:45 01/15/25 11:38 Ezetimibe 10 Mg Tablet PO 10 mg DAILY EVELIO Administration Heparin Sodium (Porcine) 5,000 unit 01/15/25 10:45 01/15/25 11:38 Heparin 5,000 Unit/Ml Inj 1 Ml SUBCUT 5,000 unit Q12H EVELIO Administration Pantoprazole Sodium 40 mg 01/15/25 10:45 01/15/25 11:[address] 40 Mg Tablet PO 40 mg DAILY EVELIO Administration Tamsulosin HCl 0.4 mg 01/15/25 10:45 01/15/25 11:38 Tamsulosin 0.4 Mg Capsule PO 0.4 mg DAILY EVELIO Administration PFSH Acute PFSH: Medical History Volume overload Type 2 diabetes mellitus Glomerulosclerosis Renal biopsy: Pathology: Nodular diabetic glomerulosclerosis class III, ATN. (HFpEF) heart failure with preserved ejection fraction Poor compliance with medication CKD (chronic kidney disease), stage V Influenza Acute on chronic renal failure Acute hypoxemic respiratory failure Community acquired pneumonia HALIE (acute kidney injury) Non-STEMI (non-ST elevated myocardial infarction) Hyperglycemia Hammertoe of right foot Callus of heel Blurred vision CKD (chronic kidney disease) stage V requiring chronic dialysis Nicotine dependence, cigarettes, uncomplicated Bereavement Mother in February 2024 Cannabis use disorder, moderate, dependence Chronic post-traumatic stress disorder Bipolar II disorder Impaired visual perception Psychiatric care Anemia 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 Social History Smoking and tobacco/nicotine status: former use of tobacco/nicotine Alcohol intake: former Adopted: No Caregiver/support person: No Lives independently: Yes Household members: none Housing: Apartment Marital status: Number of children: 1 Highest education level completed: High School Graduate service: No Current occupational status: disabled Current occupational exposures/hazards: No Pets and animals: Yes Pets & animals: cat(s) and dog(s) Leisure activites: other Leisure activities details: play music Sexually active: No Do you think of yourself as: Straight/Heterosexual Current gender identity: Male Carmita/Rastafari: Holiness Special carmita needs: No Agree to transfusion: Yes Vitals/I&O/Wt Last Vital Signs Temp 97.6 F 01/15/25 11:33 Pulse 90 01/15/25 11:33 Resp 16 01/15/25 11:33 BP 150/83 01/15/25 11:33 Pulse Ox 93 01/15/25 11:33 O2 Del Method Nasal Cannula 01/15/25 11:33 O2 Flow Rate 3 01/15/25 11:33 01/14/25 01/15/25 01/15/25 22:59 06:59 14:59 Intake Total 0 / 0 Balance 0 / 0 Weight last 48 hrs Weight 86.891 kg Weight 90.265 kg Physical Exam Narrative: Obese male lying in bed no apparent distress using nasal cannula oxygen. Vital signs noted. HEENT normocephalic atraumatic. Neck is supple no JVP. Lungs dullness at the bases and crackles. Heart regular positive S1-S2. Abdomen is soft positive bowel sounds. Extremities bilateral edema scrotal edema. Neuro awake alert oriented x 3 and asterixis Data 01/15/25 05:30 01/15/25 05:30 Micro: Microbiology 01/15/25 05:30 Blood Culture - Preliminary Blood SPECIMEN COLLECTED 01/15/25 05:30 Blood Culture - Preliminary Blood SPECIMEN COLLECTED A&P Assessment and plan (1) End-stage renal disease (ESRD): Plan 59-year-old gentleman with diabetes obesity hypertension grade 2 out of 4 diastolic dysfunction progressive renal insufficiency with renal biopsy showing recent ATN and diabetic nephrosclerosis. The patient unfortunately is not improving and has significant uremic symptoms. The patient has been seen by video news editor who do not want to treat him due to his mental status which may have been worsened by the steroids and his recent diagnosis of bipolar disease. My recommendations at this time is to initiate dialysis I discussed with him in detail the risk and benefits of dialysis. I also explained to him different kinds of dialysis including home hemodialysis and peritoneal dialysis. I explained to him that this would be dependent on a dialysis clinic excepting him and training him. The patient prefers to do a home dialysis modality however he lives by himself and only has help twice a week. At this time I recommend placing a permacath and then initiating dialysis. Anemia we will check iron studies will give Epogen. Potassium is acceptable bicarbonate is 22. Blood pressure should improve with dialysis. Elevated BNP due to combination of acute on chronic heart failure with preserved EF exacerbation and from diabetic nephrosclerosis progressing to ESRD. The plan was discussed in detail with the patient and his behavioral health home energy consultant. Agree with psychiatry evaluation. The patient was seen and examined with the aid of a nurse using audiovisual equipment. The patient consents to telehealth and to hemodialysis and will attempt to behave appropriately on dialysis. PDMP PDMP Reviewed: Not Reviewed Consult Attestations Medical Necessity Statement: Volume overload hypertension shortness of breath ESRD Time Spent in Patient Care: Greater than 35 minutes (>than 50% of time spent in counselling and/or direct pt care on unit). Coding Level of Care Code Acute Code for Chg Fwd Diagnoses End-stage renal disease (ESRD) N18.6
--- NOTE | 2025-01-15 12:50 | P.CONIM_ITS ---
Providers/Reason For Consult 2 Consulting Physician/Specialty*: MICKI Armstrong MD/cardiology Reason for Consult*: Patient with congestive heart failure / elevated troponin T/worsening kidney function Requesting Physician: Dr. Lora Attending Physician: Vernon Lora Primary Care Provider: Pierce Justice MD History of Present Illness History of Present Illness Joseph Baker is a 59 year old male with a history of chronic kidney disease with a recent progression, HFpEF, high blood pressure, type 2 diabetes, dyslipidemia, chronic hypoxic respiratory failure, is readmitted to the hospital with the complaints of generalized weakness, increasing swelling and shortness of breath. He has a chronically elevated troponin T. Cardiology consult is requested for further cardiac evaluation and recommendations. This patient had multiple recent hospital admissions for shortness of breath, respiratory distress and peripheral swelling. He recently had a renal biopsy in [place] and was found to have nodular diabetic glomera sclerosis. The renal function is progressively getting worse. He is admitted with a creatinine level of 8.0. He is in the process of getting dialysis. He denies any chest pain. He had a Myocardial perfusion imaging in the beginning of last month and was found to have an area of inconsistent reversibility in the distribution of the right coronary artery. It was opted to treat her medically at that time. Currently has no fever or chills. No cough. He has been noticing increasing swelling of the extremities and the scrotum. He also is known to have bipolar disorder. Apparently had some reluctance for dialysis but lately he seems to be willing. He has no previous history for coronary disease or myocardial infarction. Review of Systems 2 Narrative: CONSTITUTIONAL: No fever or chills. EYES: No blurring of vision or other visual disturbances lately. ENT: No hoarseness of voice, auditory disturbances or sore throat. CARDIOVASCULAR: As mentioned above. RESPIRATORY: Chronic hypoxic respiratory failure GASTROINTESTINAL: No hematemesis or melena. GENITOURINARY: Chronic kidney disease with worsening kidney function INTEGUMENTARY: No skin rashes or history of skin cancer. NEURO: No transient ischemic attacks or amaurosis. PSYCHIATRIC: History of bipolar disorder HEMATOLOGIC: Chronic anemia ENDOCRINE: Type 2 diabetes MUSCULOSKELETAL: No recent joint pain or swelling. ALLERGY/IMMUNOLOGY: As mentioned above. Medications/Allergies Home Medications ?Medication ?Instructions ?Recorded ?Confirmed ?Last Taken ?Type aspirin 81 mg tablet,delayed 81 mg PO DAILY #90 tabs 1 12/07/23 01/15/25 01/15/25 Rx release divalproex 250 mg tablet,delayed 250 mg PO .7 pm #30 t abs 11/26/24 01/15/25 01/15/25 Rx release (Depakote) pantoprazole 40 mg tablet,delayed 40 mg PO DAILY 12/0601/15/25 01/06/25 History release glipizide 5 mg tablet, extended 5 mg PO DAILY #30 tabs 12/25/24 01/15/25 01/15/25 Rx release 24 hr ezetimibe 10 mg tablet 10 mg PO DAILY 01/03/2512/2901/15/25 History albuterol sulfate 2.5 mg/3 mL 2.5 mg inhalation Q4H HI N 01/06/25 01/15/25 01/15/25 History (0.083 %) solution for nebulization Shortness Of Breat h atorvastatin 80 mg tablet 80 mg PO QPM 01/06/2501/15/25 History bumetanide 2 mg tablet 2 mg PO BIDAC #60 tabs 01/1301/15/25 01/15/25 Rx carvedilol 6.25 mg tablet 6.25 mg PO BID 30 days #60 t abs 01/13/25 01/15/25 Unknown Rx fluconazole 200 mg tablet 200 mg PO DAILY 14 days #14 tabs 01/13/25 01/15/25 01/15/25 Rx (Diflucan) nifedipine 30 mg tablet,extended 30 mg PO BEDTIME 30 d ays #30 tabs 01/13/25 01/15/25 01/15/25 Rx release 24 hr oxycodone-acetaminophen 5 mg-325 1 tab PO Q4H PRN Jeanne re Pain 7 01/13/25 01/15/25 01/15/25 Rx mg tablet days #20 tabs sevelamer carbonate 800 mg tablet 800 mg PO TID 30 day s #90 tabs 01/13/25 01/15/25 Unknown Rx sodium bicarbonate 650 mg tablet 650 mg PO TID 30 days #90 tabs 01/13/25 01/15/25 Unknown Rx tamsulosin 0.4 mg capsule (Flomax) 0.4 mg PO DAILY #30 caps 01/14/25 01/15/25 01/15/25 Rx Allergies Allergy/AdvReac Type Severity Reaction Status Date / Time No Known Allergies Allergy Verified 01/15/25 04:45 Current Medications Generic Name Dose Route Start Last Admin Trade Name Nilesq PRN Reason Stop Dose Admin Bupropion HCl 150 mg 01/15/25 10:45 01/15/25 10:54 Bupropion Xl (24 Hr) 150 Mg Tablet PO Not Given DAILY EVELIO Ezetimibe 10 mg 01/15/25 10:45 01/15/25 11:38 Ezetimibe 10 Mg Tablet PO 10 mg DAILY EVELIO Administration Heparin Sodium (Porcine) 5,000 unit 01/15/25 10:45 01/15/25 11:38 Heparin 5,000 Unit/Ml Inj 1 Ml SUBCUT 5,000 unit Q12H EVELIO Administration Pantoprazole Sodium 40 mg 01/15/25 10:45 01/15/25 11:[address] 40 Mg Tablet PO 40 mg DAILY EVELIO Administration Tamsulosin HCl 0.4 mg 01/15/25 10:45 01/15/25 11:38 Tamsulosin 0.4 Mg Capsule PO 0.4 mg DAILY EVELIO Administration PFSH Acute 2 PFSH: Medical History (Updated 01/16/25 @ 00:09 by Spike Armstrogn MD) Bipolar II disorder Essential hypertension Volume overload Type 2 diabetes mellitus Glomerulosclerosis Renal biopsy: Pathology: Nodular diabetic glomerulosclerosis class III, ATN. (HFpEF) heart failure with preserved eje ction fraction Poor compliance with medication CKD (chronic kidney disease), stage V Influenza Acute on chronic renal failure Acute hypoxemic respiratory failure Community acquired pneumonia HALIE (acute kidney injury) Non-STEMI (non-ST elevated myocardial infarction) Hyperglycemia Hammertoe of right foot Callus of heel Blurred vision CKD (chronic kidney disease) stage V requiring chronic dialysis Nicotine dependence, cigarettes, uncomplicated Bereavement Mother in February 2024 Cannabis use disorder, moderate, dependence Chronic post-traumatic stress disorder Impaired visual perception Psychiatric care Anemia 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 Social History Smoking and tobacco/nicotine status: former use of tobacco/nicotine Alcohol intake: former Adopted: No Caregiver/support person: No Lives independently: Yes Household members: none Housing: Apartment Marital status: Number of children: 1 Highest education level completed: High School Graduate service: No Current occupational status: disabled Current occupational exposures/hazards: No Pets and animals: Yes Pets & animals: cat(s) and dog(s) Leisure activites: other Leisure activities details: play music Sexually active: No Do you think of yourself as: Straight/Heterosexual Current gender identity: Male Carmita/Buddhism: Episcopal Special carmita needs: No Agree to transfusion: Yes Vitals/I&O/Wt Last Vital Signs Temp 97.6 F 01/15/25 11:33 Pulse 90 01/15/25 11:33 Resp 16 01/15/25 11:33 BP 150/83 01/15/25 11:33 Pulse Ox 93 01/15/25 11:33 O2 Del Method Nasal Cannula 01/15/25 11:33 O2 Flow Rate 3 01/15/25 11:33 01/14/25 01/15/25 01/15/25 22:59 06:59 14:59 Intake Total 0 / 0 Balance 0 / 0 Weight last 48 hrs Weight 191 lb 9 oz Weight 199 lb Physical Exam 2 Narrative: GENERAL: The patient is alert and oriented times three. Not in any acute distress. HEENT: No significant pallor, icterus or lymphadenopathy.Oral cavity: There are no mucous membrane lesions. NECK: Trachea appears to be central. No masses noted. No JVD or thyromegaly appreciated. RESPIRATORY: Chest is symmetrical. No intercostals muscle retraction or any accessory muscle activation. There is no chest wall tenderness. Breath sounds are heard bilaterally. No rales or rhonchi heard. No evidence of any consolidation. BREASTS: Deferred. HEART: The heart sounds are normal. No S3 or S4. Short systolic murmur at the lower sternal border. No diastolic murmurs. No pericardial rub ABDOMEN: No vessel pulsations or distention. No tenderness. No organomegaly appreciated. Bowel sounds are normally heard. : Deferred. RECTAL: Deferred. LYMPHATIC: No lymphadenopathy noted in the neck. EXTREMITIES: 1-2+ edema both lower extremities. No cyanosis. Peripheral pulses are palpable and fairly good volume. MUSCULOSKELETAL: No acute joint deformities or swelling SKIN: There are no significant rashes or ecchymosis NEUROPSYCHIATRIC: The patient is alert and oriented x3. Appears to be in a good mood. No tremors or rigidity noted. Data 01/15/25 05:30 01/15/25 05:30 Other Labs: Laboratory Last Values WBC 10.71 10^3/uL (3.29-11.43) 01/15/25 05:30 RBC 2.82 10^6/uL (3.85-5.65) L 01/15/25 05:30 Hgb 8.10 g/dL (11.27-16.99) L 01/15/25 05:30 Hct 25.2 % (37-53) L 01/15/25 05:30 MCV 89.4 fl (82-101) 01/15/25 05:30 MCH 28.7 pg (27-33) 01/15/25 05:30 MCHC 32.1 g/dL (30-55) 01/15/25 05:30 RDW 13.2 % (12.1-15.1) 01/15/25 05:30 Plt Count 348 10^3/cmm (157-399) 01/15/25 05:30 MPV 9.9 fL (7.4-10.4) 01/15/25 05:30 Neut % (Auto) 75.0 % 01/15/25 05:30 Lymph % (Auto) 10.9 % 01/15/25 05:30 [place] % (Auto) 10.6 % 01/15/25 05:30 Eos % (Auto) 1.4 % 01/15/25 05:30 Baso % (Auto) 1.1 % 01/15/25 05:30 Neut # (Auto) 8.02 10^3/uL (1.8-7.7) H 01/15/25 05:30 Lymph # (Auto) 1.2 10^3/uL (0.8-4.8) 01/15/25 05:30 [place] # (Auto) 1.1 10^3/uL (0.2-0.9) H 01/15/25 05:30 Eos # (Auto) 0.2 10^3/uL (0.0-0.8) 01/15/25 05:30 Baso # (Auto) 0.1 10^3/uL (0.0-0.1) 01/15/25 05:30 Nucleated RBC % (auto) 0 % 01/15/25 05:30 Nucleated RBCs # 0.0 /100WBC 01/15/25 05:30 Sodium 136 mmol/L (136-145) 01/15/25 05:30 Potassium 4.5 mmol/L (3.5-5.1) 01/15/25 05:30 Chloride 98 mmol/L (98-107) 01/15/25 05:30 Carbon Dioxide 22 mmol/L (22-29) 01/15/25 05:30 Anion Gap 20.5 (5-19) H 01/15/25 05:30 BUN 77 mg/dL (6-20) H 01/15/25 05:30 Creatinine 8.0 mg/dL (0.7-1.2) H* 01/15/25 05:30 GFR Calculation 7.0 mL/min (90-130) L 01/15/25 05:30 Glucose 85 mg/dL (65-115) 01/15/25 05:30 POC Glucose 141 mg/dL (70-110) H 01/15/25 20:36 Calculated Osmolality 304 mOsm/kg (285-295) H 01/15/25 05:30 Lactic Acid 0.8 mmol/L (0.5-2.2) 01/15/25 05:30 Uric Acid 10.0 mg/dL (3.4-7.0) H 01/15/25 05:30 Calcium 7.4 mg/dL (8.5-10.5) L 01/15/25 05:30 Total Bilirubin 0.2 mg/dL (0.15-1.2) 01/15/25 05:30 AST 13 U/L (0-40) 01/15/25 05:30 ALT 6 U/L (0-41) 01/15/25 05:30 Alkaline Phosphatase 95 U/L (40-130) 01/15/25 05:30 Troponin T Baseline 328 ng/L (0-15) H* 01/15/25 05:30 Troponin T 120 Minute 302.5 ng/L (0-15) H 01/15/25 07:42 Delta Troponin T -25.5 ABS# (0-10) L 01/15/25 07:42 Troponin T Hi Sens 6Hr 310.6 ng/L (0-15) H 01/15/25 11:30 Troponin T Hi Sens 6Hr Delta -17.4 ng/L (0-12) L 01/15/25 11:30 NT-Pro-B Natriuret Pep 11731 pg/mL (0-125) H 01/15/25 05:30 Total Protein 6.5 g/dL (6.6-8.7) L 01/15/25 05:30 Albumin 3.1 g/dL (3.5-5.2) L 01/15/25 05:30 Globulin 3.4 g/dL (1.3-4.6) 01/15/25 05:30 Procalcitonin 0.55 ng/mL (0-0.5) H 01/15/25 05:30 Urine Color Yellow (Yellow) 01/15/25 17:25 Urine Appearance Clear (CLEAR) 01/15/25 17: Urine pH 5.0 (5-7) 01/15/25 17:25 Ur Specific [place] 1.013 (1.005-1.030) 01/15/25 17: Urine Protein 3+ (Negative) A 01/15/25 17:25 Urine Glucose (UA) Negative (Normal) 01/15/25 17: Urine Ketones Negative (Negative) 01/15/25 17: Urine Blood 1+ (Negative) A 01/15/25 17:25 Urine Nitrate Negative (Negative) 01/15/25 17:25 Urine Bilirubin Negative (Negative) 01/15/25 17: Urine Urobilinogen 0.2 mg/dL (Negative) 01/15/25 17:25 Ur Leukocyte Esterase Negative (Negative) 01/15/25 17:25 Urine RBC 0-2 /hpf (0-2) 01/15/25 17:25 Urine WBC 0-5 /hpf (0-5) 01/15/25 17:25 Ur Squamous Epith Cells 0-5 /hpf (0-5) 01/15/25 17:25 Amorphous Sediment 1+ /hpf 01/15/25 17:25 Urine Bacteria None seen /hpf (NONE) 01/15/25 17:25 Hyaline Casts 50.46 /lpf 01/15/25 17:25 Fine Granular Casts 0-4 /lpf H 01/15/25 17:25 Hep Bs Antigen Non-reactive (Nonreactive) 01/15/25 05:30 Hep Bs Antibody < 3.5 (11.5-1000) L 01/15/25 05:30 Hepatitis C Antibody Non-reactive (Nonreactive) 01/15/25 05:30 Influenza A (PCR) Negative (Negative) 01/15/25 05:30 Influenza Type B (PCR) Negative (Negative) 01/15/25 05:30 RSV (PCR) Negative (Negative) 01/15/25 05:30 SARS-CoV-2 (PCR) Negative (Negative) 01/15/25 05:30 Micro: Microbiology 01/15/25 05:30 Blood Culture - Preliminary Blood SPECIMEN COLLECTED 01/15/25 05:30 Blood Culture - Preliminary Blood SPECIMEN COLLECTED EKG 1: My Interpretation: Normal sinus rhythm with short HI interval. Normal ST Ts. Other data: Echocardiogram on 12/08/2024 Normal left ventricular size, systolic function and wall thickness, with no regional wall motion abnormalities. Left ventricular ejection fraction is estimated at 60 %. Grade II/IV diastolic dysfunction, moderately elevated filling pressures. Moderately thickened mitral valve. Moderate mitral annular calcification. No mitral valve stenosis. Mild mitral valve regurgitation. Moderate aortic valve calcification. Moderate aortic valve calcification. Aortic valve sclerosis without stenosis. Trace aortic valve regurgitation. There is no pericardial effusion. Right atrial pressure is around 15 mm of mercury. Myocardial perfusion imaging on 12/10/2024 1. Myocardial perfusion imaging revealing a small area of inconsistent reversible defect reversible defect in the mid inferior region, suggestive of ischemia in the distribution of the right coronary artery. However because of the inconsistency, the relative is questionable. Clinical correlation recommended 2. Normal LV ejection fraction of 62%. 3. LV wall motion analysis revealing no gross wall motion abnormalities. 4. Normal LV volume No similar previous studies are available for comparison A&P Assessment and plan (1) Acute on chronic diastolic (congestive) heart failure: Patient is a chronic kidney disease and hypoxic respiratory failure are contributing factors. Possibility of underlying coronary ischemia causing this also is a consideration. (2) Elevated troponin: This could be related to the chronic renal failure. Possibility of underlying coronary ischemia cannot be excluded. (3) Hyperlipidemia: May continue on the current management. Qualifiers: Hyperlipidemia type: mixed hyperlipidemia Qualified Code(s): E78.2 - Mixed hyperlipidemia (4) Essential hypertension: The blood pressure is currently elevated to stage II. Will optimize the antihypertensive medications. (5) Cannabis dependence, uncomplicated: Has not been taking cannabis for the last couple of weeks, as per patient (6) CKD (chronic kidney disease), stage V: Being managed by nephrology service. Patient is in the process of getting dialyzed (7) Bipolar II disorder: Management as per the primary (8) Chronic hypoxic respiratory failure: The oxygenation seem to be satisfactory on 5 L of oxygen by nasal cannula Plan I may discontinue the carvedilol because of the possible reactive airway disease. May be started on metoprolol 50 mg p.o. twice daily. Also may start him on isosorbide mononitrate 30 mg p.o. daily. Other medication may be continued. May consider an angiogram to evaluate the coronary arteries, when it is okay with the nephrology service. May be continued on the other symptomatic measures for the time being Thank you for the opportunity to evaluate this patient and make these recommendations PDMP PDMP Reviewed: Not Reviewed Coding Level of Care Code 19059 Diagnoses Acute on chronic diastolic (congestive) heart failure I50.33 Elevated troponin R79.89 Mixed hyperlipidemia E78.2 Hyperlipidemia type: mixed hyperlipidemia Essential hypertension I10 Cannabis dependence, uncomplicated F12.20 CKD (chronic kidney disease), stage V N18.5 Bipolar II disorder F31.81 Chronic hypoxic respiratory failure J96.11
--- NOTE | 2025-01-15 13:03 | PM.CONSULT ---
Providers/Reason For Consult Consulting Physician/Specialty*: Dr. Suárez general surgery Reason for Consult*: Tunneled dialysis catheter placed Attending Physician: Vernon Lora Primary Care Provider: Pierce Justice MD History of Present Illness History of Present Illness Joseph Baker is a 59 year old male who presented in acute renal failure. History of chronic kidney disease. Has not started dialysis. Consulted for tunneled dialysis catheter placement. No neck or chest surgeries. Medications/Allergies Home Medications ?Medication ?Instructions ?Recorded ?Confirmed ?Last Taken ?Type aspirin 81 mg tablet,delayed 81 mg PO DAILY #90 tabs 10/06/24 01/15/25 01/15/25 Rx release divalproex 250 mg tablet,delayed 250 mg PO .7 pm #30 tabs 11/26/24 01/15/25 01/15/25 Rx release (Depakote) pantoprazole 40 mg tablet,delayed 40 mg PO DAILY 12/06/24 01/15/25 01/06/25 History release glipizide 5 mg tablet, extended 5 mg PO DAILY #30 tabs 12/25/24 01/15/25 01/15/25 Rx release 24 hr ezetimibe 10 mg tablet 10 mg PO DAILY 01/03/25 01/15/25 01/15/25 History albuterol sulfate 2.5 mg/3 mL 2.5 mg inhalation Q4H PRN 01/06/25 01/15/25 01/15/25 History (0.083 %) solution for nebulization Shortness Of Breath atorvastatin 80 mg tablet 80 mg PO QPM 01/06/25 01/15/25 01/15/25 History bumetanide 2 mg tablet 2 mg PO BIDAC #60 tabs 01/13/25 01/15/25 01/15/25 Rx carvedilol 6.25 mg tablet 6.25 mg PO BID 30 days #60 tabs 01/13/25 01/15/25 Unknown Rx fluconazole 200 mg tablet 200 mg PO DAILY 14 days #14 tabs 01/13/25 01/15/25 01/15/25 Rx (Diflucan) nifedipine 30 mg tablet,extended 30 mg PO BEDTIME 30 days #30 tabs 01/13/25 01/15/25 01/15/25 Rx release 24 hr oxycodone-acetaminophen 5 mg-325 1 tab PO Q4H PRN Severe Pain 7 01/13/25 01/15/25 01/15/25 Rx mg tablet days #20 tabs sevelamer carbonate 800 mg tablet 800 mg PO TID 30 days #90 tabs 01/13/25 01/15/25 Unknown Rx sodium bicarbonate 650 mg tablet 650 mg PO TID 30 days #90 tabs 01/13/25 01/15/25 Unknown Rx tamsulosin 0.4 mg capsule (Flomax) 0.4 mg PO DAILY #30 caps 01/14/25 01/15/25 01/15/25 Rx Allergies Allergy/AdvReac Type Severity Reaction Status Date / Time No Known Allergies Allergy Verified 01/15/25 04:45 Current Medications Generic Name Dose Route Start Last Admin Trade Name Freq PRN Reason Stop Dose Admin Bupropion HCl 150 mg 01/15/25 10:45 01/15/25 10:54 Bupropion Xl (24 Hr) 150 Mg Tablet PO Not Given DAILY EVELIO Ezetimibe 10 mg 01/15/25 10:45 01/15/25 11:38 Ezetimibe 10 Mg Tablet PO 10 mg DAILY EVELIO Administration Heparin Sodium (Porcine) 5,000 unit 01/15/25 10:45 01/15/25 11:38 Heparin 5,000 Unit/Ml Inj 1 Ml SUBCUT 5,000 unit Q12H EVELIO Administration Pantoprazole Sodium 40 mg 01/15/25 10:45 01/15/25 11:[address] 40 Mg Tablet PO 40 mg DAILY EVELIO Administration Tamsulosin HCl 0.4 mg 01/15/25 10:45 01/15/25 11:38 Tamsulosin 0.4 Mg Capsule PO 0.4 mg DAILY EVELIO Administration PFSH Acute PFSH: Medical History (Updated 01/16/25 @ 00:09 by Spike Armstrong MD) Bipolar II disorder Essential hypertension Volume overload Type 2 diabetes mellitus Glomerulosclerosis Renal biopsy: Pathology: Nodular diabetic glomerulosclerosis class III, ATN. (HFpEF) heart failure with preserved ejection fraction Poor compliance with medication CKD (chronic kidney disease), stage V Influenza Acute on chronic renal failure Acute hypoxemic respiratory failure Community acquired pneumonia HALIE (acute kidney injury) Non-STEMI (non-ST elevated myocardial infarction) Hyperglycemia Hammertoe of right foot Callus of heel Blurred vision CKD (chronic kidney disease) stage V requiring chronic dialysis Nicotine dependence, cigarettes, uncomplicated Bereavement Mother in February 2024 Cannabis use disorder, moderate, dependence Chronic post-traumatic stress disorder Impaired visual perception Psychiatric care Anemia 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 Social History Smoking and tobacco/nicotine status: former use of tobacco/nicotine Alcohol intake: former Adopted: No Caregiver/support person: No Lives independently: Yes Household members: none Housing: Apartment Marital status: Number of children: 1 Highest education level completed: High School Graduate service: No Current occupational status: disabled Current occupational exposures/hazards: No Pets and animals: Yes Pets & animals: cat(s) and dog(s) Leisure activites: other Leisure activities details: play music Sexually active: No Do you think of yourself as: Straight/Heterosexual Current gender identity: Male Carmita/Evangelical: Restorationism Special carmita needs: No Agree to transfusion: Yes Vitals/I&O/Wt Last Vital Signs Temp 97.6 F 01/15/25 11:33 Pulse 90 01/15/25 11:33 Resp 16 01/15/25 11:33 BP 150/83 01/15/25 11:33 Pulse Ox 93 01/15/25 11:33 O2 Del Method Nasal Cannula 01/15/25 11:33 O2 Flow Rate 3 01/15/25 11:33 01/14/25 01/15/25 01/15/25 22:59 06:59 14:59 Intake Total 0 / 0 Balance 0 / 0 Weight last 48 hrs Weight 191 lb 9 oz Weight 199 lb Physical Exam Narrative: Chest: Unlabored breathing room air. No lymphadenopathy. Heart: Regular rate and rhythm. Abdomen: Soft, nontender, nondistended. No masses or lymphadenopathy. Data 01/16/25 03:41 01/16/25 03:41 Micro: Microbiology 01/15/25 05:30 Blood Culture - Preliminary Blood SPECIMEN COLLECTED 01/15/25 05:30 Blood Culture - Preliminary Blood SPECIMEN COLLECTED A&P Assessment and plan (1) CKD (chronic kidney disease), stage V: Plan 60-year-old male chronic kidney disease consulted for tunneled dialysis catheter placement. Discussed risk and benefits and patient agrees to proceed with tunneled dialysis catheter placement. PDMP PDMP Reviewed: Not Reviewed Coding Level of Care Code 38661 Diagnoses CKD (chronic kidney disease), stage V N18.5 Time Spent (min) 30
--- NOTE | 2025-01-15 13:16 | USCV_ITS ---
Joseph Baker Age: 59 Gender: M : 1965 Exam Date: 01/15/2025 15:16 Ordering Phys: Spike Armstrong MD ([email or web address]) Technologist: [place] [facility] [place]: chest pain BP: / HR: Rhythm: Sinus Technical Quality: Adequate MEASUREMENTS (Male / Female) Normal Values 2D ECHO LV Diastolic Diameter PLAX 3.6 cm 4.2 - 5.9 / 3.9 - 5.3 cm IVS Diastolic Thickness 1.0 cm 0.6 - 1.0 / 0.6 - 0.9 cm IVS Systolic Thickness 1.6 cm LVPW Diastolic Thickness 1.1 cm 0.6 - 1.0 / 0.6 - 0.9 cm LVPW Systolic Thickness 1.7 cm LVOT Diameter 2.0 cm LV Ejection Fraction 2D Teich 46.7 % LV Ejection Fraction MOD 4C 58.1 % LV Ejection Fraction MOD 2C 44.5 % LV Ejection Fraction 2C AL 46.1 % LA Diameter 3.5 cm RA Systolic Volume 4C AL 29.7 ml RA Systolic Volume 4C MOD 28.9 ml Aorta at Sinotubular Diameter 2.0 cm M-MODE LA Ao Ratio MM 0.9 AV Cusp Separation MM 2.2 cm FINDINGS Left Ventricle Mild left ventricular hypertrophy. Normal left ventricular size and systolic function, EF 58%. No regional wall motion abnormalities. Right Ventricle The right ventricle is normal in size and function. Right Atrium The right atrium is normal in size. Left Atrium The left atrium is normal in size. Mitral Valve Mildly thickened mitral valve. Aortic Valve Thickened aortic valve. Tricuspid Valve No gross abnormalities noted Pulmonic Valve Pulmonic valve not well visualized. Pericardium Normal pericardium without effusion. Aorta Normal aortic annulus size. IVC Inferior vena cava not visualized. CONCLUSIONS Mild left ventricular hypertrophy. Normal left ventricular size and systolic function, EF 58%. No regional wall motion abnormalities. Mildly thickened mitral valve. Thickened aortic valve. There is no pericardial effusion. There are no intracardiac masses. Compared to the study from 12/08/2024, no significant change in the 2D findings Dr Spike Armstrong MD [facility] (Electronically Signed) Final Date: 16 January 2025 01:20 S
[2025-01-15 13:20] LABS: Hepatitis B Surface AB < 3.5 (11.5-1000); Hepatitis B Surface Antigen Non-Reactive (Nonreactive)
[2025-01-15 13:41] LABS: Hepatitis C Virus Antibody Non-Reactive (Nonreactive)
--- NOTE | 2025-01-15 13:53 | PC.NURSE ---
Addendum entered by Mackenzie Aquino RN 01/15/25 15:50: 1456: Notified Dr Lora that pt refused to have his home meds be locked up. Notified nurse wholesale manager and risk mgt on pt's refusal. Original Note: medications-home at bedside noted pt about us needing to get his home meds to be locked up. He said, no. leave it here. I was looking for vitamin that was just prescribe recently. Pt don't know the name. I told the patient we need him not to take his home meds without letting nurse or staff know for his safety in taking same dose again. Did not see any vitamin med in his bag. noted pt has oxycodone pill bottle. Pt stated, Just stop! I know what I'm doing. Will keep monitoring.
--- NOTE | 2025-01-15 14:35 | P.MISC_ITS ---
Miscellaneous Note Note: Discussed with Dr. Hood retail business analyst. He's ok holding off dialysis today and placing a tunneled dialysis line 01/16/25. Patient ate this afternoon. Full consult note to follow.
--- NOTE | 2025-01-15 14:35 | PM.MISC ---
Miscellaneous Note Note: Discussed with Dr. Hood spinner concrete pipe. He's ok holding off dialysis today and placing a tunneled dialysis line 01/16/25. Patient ate this afternoon. Full consult note to follow.
--- NOTE | 2025-01-15 14:41 | PC.HD ---
Dialysis planned for 01/15; however, patient ate, so catheter placement will occur tomorrow, 01/16. Per Dr. Hood, ok to use 01/15's orders on 01/16.
--- NOTE | 2025-01-15 15:51 | PC.NURSE ---
Approximately 1200 Pt ate a chicken wrap Brought by field nurse case manager Ariana, pt already ate half of the sandwich. 12:30 pm- Dr Surgeon Suárez came and told him that pt had eaten and drank. pt requested coffee and dr suárez was okay to give coffee and get his dialysis kit ready for temporary dialysis this afternoon. 1430-Dr Suárez called and notified nurse that pt will need a tunneled cath. Order for NPO after midnight. Pt notified on npo after midnight for dialyis procedure tomorrow.
[2025-01-15] MEDS: sodium bicarbonate 650 mg Tablet PO ×2 (16:26→21:52)
[2025-01-15] MEDS: FUROsemide 10 mg/mL SDV 4mL 40 MG IVP (16:26)
--- NOTE | 2025-01-15 16:54 | PC.NURSE ---
pt refused to sign his medical record consent. Explained to pt that it is his confidential records and per legality, we need his consent for the facility to get a copy of his medical record from different facility. Pt stated, Are you not understanding?Why do i have to sign?my doctor has it.they know the result of my biopsy. Pt stated he sees dr frederick. Notified Dr Lora
[2025-01-15] MEDS: sevelamer 800 mg Tablet 1600 MG PO (17:05)
[2025-01-15] MEDS: carvedilol 6.25 mg Tablet PO (17:06)
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
[2025-01-15 17:26] LABS: Glucose Point of Care 148 mg/dL (70-110)
--- NOTE | 2025-01-15 17:34 | PC.NURSE ---
pt refused sweet and low Pt stated, I have been taking regular sugar and honey. Educated pt on his diabetes. and he is agreeable to have insulin injection for his BG level. Pt does not want diet coke, he wants regular coke.
[2025-01-15] MEDS: insulin lispro 100 unit/1 mL SUBCUT (17:39)
[2025-01-15 18:49] LABS: Bilirubin Urine Negative (Negative); Blood Urine 1+ (Negative); Glucose Urine UA Negative (Normal); Ketones Urine Negative (Negative); Leukocyte Esterase Urine Negative (Negative); Nitrate Urine Negative (Negative); Protein Urine 3+ (Negative); Specific Gravity, Urine 1.013 (1.005-1.030); Urine Appearance Clear (CLEAR); Urine Color Yellow (Yellow); Urobilinogen Urine 0.2 mg/dL (Negative)
[2025-01-15 18:54] LABS: Bacteria Urine None Seen /hpf; Hyaline Casts Urine 50.46 /lpf; RBC Urine 0-2 /hpf (0-2); Squamous Epithelial Cell Urine 0-5 /hpf (0-5); WBC Urine 0-5 /hpf (0-5)
[2025-01-15 19:06] LABS: UA Slide Review UA Slide Review Perf
[2025-01-15 19:07] LABS: Add Urine Culture? No; Amorphous Sediment Urine 1+ /hpf; Fine Granular Casts Urine 0-4 /lpf
[2025-01-15] MEDS: divalproex DR 250 mg Tablet PO (20:08)
[2025-01-15 20:53] LABS: Glucose Point of Care 141 mg/dL (70-110)
[2025-01-15] MEDS: NIFEdipine ER (24 hr) 30 mg Tablet PO (21:52)
[2025-01-15] MEDS: blistex lip oint 7 gm Tube 1 APPLIC TOPICAL (21:52)
[2025-01-16] VITALS (25 sets, daily range): BP systolic 127–169; BP diastolic 68–91; PULSE 76–108; RESP 11–20; TEMP 36.4–37; O2SAT 90–98
[2025-01-16 03:48] LABS: Basophils # 0.1 10^3/uL (0.0-0.1); Basophils % 1.2 %; Eosinophils # 0.2 10^3/uL (0.0-0.8); Eosinophils % 1.9 %; Hematocrit 26.9 % (37-53); Lymphocytes # 1.4 10^3/uL (0.8-4.8); Lymphocytes % 14.4 %; Mean Corpuscular HGB Conc 31.6 g/dL (30-55); Mean Corpuscular Hemoglobin 28.6 pg (27-33); Mean Corpuscular Volume 90.6 fl (82-101); Mean Platelet Volume 9.2 fL (7.4-10.4); Monocytes # 1.1 10^3/uL (0.2-0.9); Monocytes % 11.1 %; Neutrophils # 6.77 10^3/uL (1.8-7.7); Nucleated Red Blood Cells % 0 %; Platelet Count 348 10^3/cmm (157-399); Red Blood Count 2.97 10^6/uL (3.85-5.65); Red Cell Distribution Width 13.6 % (12.1-15.1); White Blood Count 9.67 10^3/uL (3.29-11.43)
[2025-01-16] MEDS: FUROsemide 10 mg/mL SDV 4mL 40 MG IVP ×2 (03:55→18:23)
[2025-01-16 04:10] LABS: Alanine Aminotransferase 7 U/L (0-41); Alkaline Phosphatase 93 U/L (40-130); Anion Gap 19.6 (5-19); Aspartate Amino Transferase 14 U/L (0-40); Blood Urea Nitrogen 71 mg/dL (6-20); Calcium 7.5 mg/dL (8.5-10.5); Carbon Dioxide 24 mmol/L (22-29); Chloride 101 mmol/L (98-107); Creatinine Clr Calc Pharmacy 11.3946; Ferritin 129 ng/mL (30-400); Globulin 3.9 g/dL (1.3-4.6); Glomerular Filtration Rate 7.7 mL/min (90-130); Glucose 113 mg/dL (65-115); Iron 40 ug/dL (59-158); Magnesium 2.1 mg/dL (1.7-2.3); Osmolality Calculated 312 mOsm/kg (285-295); Percent Saturation 22.3 % (20-50); Phosphorus 5.9 mg/dL (2.5-4.5); Potassium 4.6 mmol/L (3.5-5.1); Sodium 140 mmol/L (136-145); Total Bilirubin 0.2 mg/dL (0.15-1.2); Total Iron Binding Capacity 179 mcg/dl; Total Protein 6.9 g/dL (6.6-8.7); Unsaturated Iron Binding 139 ug/dL (112-347)
[2025-01-16 04:11] LABS: Calcium 7.3 mg/dL (8.5-10.5)
[2025-01-16 04:18] LABS: Parathyroid Hormone 201.7 pg/mL (15-65)
[2025-01-16 04:24] LABS: 25 Hydroxy Vitamin D 6 ng/mL (30-100)
[2025-01-16 06:19] LABS: Glucose Point of Care 111 mg/dL (70-110)
[2025-01-16] MEDS: sevelamer 800 mg Tablet 1600 MG PO ×2 (06:28→13:32)
[2025-01-16 06:45] LABS: Glucose Point of Care 186 mg/dL (70-110)
--- NOTE | 2025-01-16 08:08 | PM.PN ---
Subjective Subjective: The patient was seen and examined. The patient feels well he is urinating blood pressure remains elevated he has no current chest pain he has decreased edema no shortness of breath at rest however complains of dyspnea on exertion. No nausea poor appetite itching and metallic taste Medications: Reviewed: Yes Medication Review Details: Current Medications Acetaminophen (Acetaminophen 325 Mg Tablet) 650 mg PO Q6H PRN PRN Reason: Mild/Mod Pain Or Temp >/= 101 Albuterol Sulfate (Albuterol 2.5 Mg/3 Ml Neb) 2.5 mg INHALATION Q4H PRN PRN Reason: Shortness Of Breath Aspirin (Aspirin 81 Mg Ec Tablet) 81 mg PO DAILY [facility] Atorvastatin Calcium (Atorvastatin 40 Mg Tablet) 80 mg PO QPM [facility] Last Admin: 01/15/25 17:59 Dose: Not Given Bupropion HCl (Bupropion Xl (24 Hr) 150 Mg Tablet) 150 mg PO DAILY [facility] Last Admin: 01/15/25 10:54 Dose: Not Given Camphor/Menthol/Phenol (Blistex Lip Oint 7 Gm Tube) 1 applic TOPICAL PRN PRN PRN Reason: DRYNESS Last Admin: 01/15/25 21:52 Dose: 1 applic Carvedilol (Carvedilol 6.25 Mg Tablet) 6.25 mg PO BID [facility] Last Admin: 01/15/25 17:06 Dose: 6.25 mg Divalproex Sodium (Divalproex Dr 250 Mg Tablet) 250 mg PO 1900 [facility] Last Admin: 01/15/25 20:08 Dose: 250 mg Ezetimibe (Ezetimibe 10 Mg Tablet) 10 mg PO DAILY [facility] Last Admin: 01/15/25 11:38 Dose: 10 mg Fluconazole (Fluconazole 100 Mg Tablet) 200 mg PO DAILY [facility] Furosemide (Furosemide 10 Mg/Ml Sdv 4ml) 40 mg IVP BID@0400,1600 [facility] Last Admin: 01/16/25 03:55 Dose: 40 mg Glucagon (Glucagon 1 Mg/Ml Kit 1 Ml) 1 mg IM ONCE PRN; Protocol PRN Reason: Adult Acute Hypoglycemia Nursing Prot. Heparin Sodium (Porcine) (Heparin 5,000 Unit/Ml Inj 1 Ml) 5,000 unit SUBCUT Q12H [facility] Last Admin: 01/15/25 21:52 Dose: 5,000 unit Albumin Human (Albumin) 12.5 gm in 50 mls @ 60 mls/hr IV PRN PRN PRN Reason: Hypotension and/or symptomatic Dextrose (D5w) 500 mls @ 0 mls/hr IV ONCE PRN; Protocol PRN Reason: Adult Acute Hypoglycemia Prot Dextrose (D10w) 125 mls @ 750 mls/hr IV PRN PRN; Protocol PRN Reason: Adult Acute Hypoglycemia Nursing Protocol Dextrose (D10w) 250 mls @ 1,000 mls/hr IV PRN PRN; Protocol PRN Reason: Adult Acute Hypoglycemia Nursing Protocol Insulin Human Lispro (Insulin Lispro 100 Unit/1 Ml) 0 unit SUBCUT WM&BEDTIME [facility]; Protocol Last Admin: 01/15/25 21:03 Dose: Not Given Multivitamins (J-Pguhzug-Dlijqnp C Tablet) 1 each PO DAILY [facility] Nifedipine (Nifedipine Er (24 Hr) 30 Mg Tablet) 30 mg PO BEDTIME [facility] Last Admin: 01/15/25 21:52 Dose: 30 mg Oxycodone/Acetaminophen (Oxycodone-Apap 5-325 Mg Tablet) 1 tab PO Q4H PRN PRN Reason: Severe Pain Pantoprazole Sodium (Pantoprazole Dr 40 Mg Tablet) 40 mg PO DAILY [facility] Last Admin: 01/15/25 11:38 Dose: 40 mg Sevelamer Carbonate (Sevelamer 800 Mg Tablet) 1,600 mg PO TIDAC [facility] Last Admin: 01/16/25 06:28 Dose: 1,600 mg Sodium Bicarbonate (Sodium Bicarbonate 650 Mg Tablet) 650 mg PO TID [facility] Last Admin: 01/15/25 21:52 Dose: 650 mg Tamsulosin HCl (Tamsulosin 0.4 Mg Capsule) 0.4 mg PO DAILY [facility] Last Admin: 01/15/25 11:38 Dose: 0.4 mg Vitals/I&O/Wt Last Vital Signs Temp 98.0 F 01/16/25 07:43 Pulse 95 01/16/25 07:43 Resp 19 H 01/16/25 07:43 BP 152/82 01/16/25 07:43 Pulse Ox 94 01/16/25 07:43 O2 Del Method Nasal Cannula 01/16/25 07:43 O2 Flow Rate 2 01/15/25 16:00 01/15/25 01/16/25 01/16/25 22:59 06:59 14:59 Intake Total 840 / 1200 200 / 1400 Output Total 1350 / 1350 1250 / 2600 Balance -510 / -150 -1050 / -1200 Weight last 48 hrs Weight 86.319 kg Weight 86.891 kg Weight 90.265 kg Physical Exam Narrative: Obese male lying in bed no apparent distress using nasal cannula oxygen. Vital signs noted. HEENT normocephalic atraumatic. Neck is supple no JVP. Lungs dullness at the bases and crackles. Heart regular positive S1-S2. Abdomen is soft positive bowel sounds. Extremities bilateral edema scrotal edema. Neuro awake alert oriented x 3 and asterixis Data 01/16/25 03:41 01/16/25 03:41 Micro: Microbiology 01/15/25 05:30 Blood Culture - Preliminary Blood NEGATIVE TO DATE 01/15/25 05:30 Blood Culture - Preliminary Blood NEGATIVE TO DATE A&P Assessment and plan (1) End-stage renal disease (ESRD): Plan 59-year-old gentleman with diabetes obesity hypertension grade 2 out of 4 diastolic dysfunction progressive renal insufficiency with renal biopsy showing recent ATN and diabetic nephrosclerosis. The patient unfortunately is not improving and has significant uremic symptoms. The patient has been seen by software tools build engineer who do not want to treat him due to his mental status which may have been worsened by the steroids and his recent diagnosis of bipolar disease. My recommendations at this time is to initiate dialysis. - I discussed with him in detail the risk and benefits of dialysis. I also explained to him different kinds of dialysis including home hemodialysis and peritoneal dialysis. I explained to him that this would be dependent on a dialysis clinic excepting him and training him. The patient prefers to do a home dialysis modality however he lives by himself and only has help twice a week. At this time I recommend placing a permacath and then initiating dialysis. I also believe that starting dialysis will help him with blood pressure control and allowing him to be on the appropriate medications for his cardiac disease. Anemia we will check iron studies will give Epogen. Potassium is acceptable bicarbonate is 24-no need for bicarbonate . Phosphorus is improving. PTH is 201. Vitamin D is undetectable. Start vitamin D replacement. Blood pressure should improve with dialysis and 1 may start an ALANNA inhibitor or ARB when on dialysis.. Elevated BNP due to combination of acute on chronic heart failure with preserved EF exacerbation and from diabetic nephrosclerosis progressing to ESRD. The plan was discussed in detail with the patient and his behavioral health information technology consultant. Appreciate psychiatry evaluation. -Please have administration of social work lecturer speak with local dialysis unit so far has been rejected from all units. Unfortunately medically I feel he would benefit from initiating dialysis at this fallout better treatment of his cardiac disease volume status and blood pressure. Patient has spoke to his psychiatrist and behavioral health here and does want to work with the medical staff. The patient was seen and examined with the aid of a nurse using audiovisual equipment. The patient consents to telehealth and to hemodialysis and will attempt to behave appropriately on dialysis. PDMP PDMP Reviewed: Not Reviewed Attestations Medical Necessity Statement*: Hypertension CKD stage V volume overload. Time Spent in Patient Care: Greater than 35 minutes (>than 50% of time spent in counselling and/or direct pt care on unit). Coding Level of Care Code Acute Code for Chg Fwd Diagnoses End-stage renal disease (ESRD) N18.6
--- NOTE | 2025-01-16 08:38 | P.PN_ITS ---
Subjective 2 Subjective: No events overnight Room air Consented for tunneled dialysis catheter Vitals/I&O/Wt Last Vital Signs Temp 98.0 F 01/16/25 07:43 Pulse 95 01/16/25 07:43 Resp 19 H 01/16/25 07:43 BP 152/82 01/16/25 07:43 Pulse Ox 94 01/16/25 07:43 O2 Del Method Nasal Cannula 01/16/25 07:43 O2 Flow Rate 2 01/15/25 16:00 01/15/25 01/16/25 01/16/25 22:59 06:59 14:59 Intake Total 840 / 1200 200 / 1400 Output Total 1350 / 1350 1250 / 2600 Balance -510 / -150 -1050 / -1200 Weight last 48 hrs Weight 190 lb 4.8 oz Weight 191 lb 9 oz Weight 199 lb Physical Exam 2 Narrative: Chest: Unlabored breathing room air. No lymphadenopathy. Heart: Regular rate and rhythm. Abdomen: Soft, nontender, nondistended. No masses or lymphadenopathy. Data 01/16/25 03:41 01/16/25 03:41 Micro: Microbiology 01/15/25 05:30 Blood Culture - Preliminary Blood NEGATIVE TO DATE 01/15/25 05:30 Blood Culture - Preliminary Blood NEGATIVE TO DATE A&P Assessment and plan (1) CKD (chronic kidney disease), stage V: Plan 60-year-old male chronic kidney disease consulted for tunneled dialysis catheter placement. Discussed risk and benefits and patient agrees to proceed with tunneled dialysis catheter placement. PDMP PDMP Reviewed: Not Reviewed Attestations 2 Medical Necessity Statement*: N/A Coding Level of Care Code 75298 Diagnoses CKD (chronic kidney disease), stage V N18.5 Time Spent (min) 30
--- NOTE | 2025-01-16 09:14 | PC.NURSE ---
Patient off the floor in OR for tunnel catheter placement.
--- NOTE | 2025-01-16 09:18 | ANES.PREANE2 ---
Pre-Anesthetic Assessment Height/Weight: Height 1.68 m Weight 86.319 kg Temp Pulse Resp BP Pulse Ox O2 Del Method O2 Flow Rate 97.9 F 100 20 H 159/80 95 Nasal Cannula 4.5 01/16/25 09:15 01/16/25 09:15 01/16/25 09:15 01/16/25 09:15 01/16/25 09:15 01/16/25 09:15 01/16/25 09:15 Operation Date: 01/16/25 12:30 Proposed Procedures p Dialysis Catheter Insertion Haemodialysis Catheter Insertion(Not Applicable) - Tommie Suárez MD Familial anesthetic complications: None Was Beta Ari taken within 24 hours: Yes Was Clonidine taken within 24 hours: N/A Last intake: Intake Last Liquid Date 01/15/25 Last Liquid Time 23:59 Last Solid Date 01/15/25 Last Solid Time 23:59 Social Tobacco and No alcohol MJ Exam alert, oriented x 3, clear to auscultation bilaterally and regular rate & rhythm Airway Mallampati: Class II Dentition: chipped Pulmonary Chronic Obstructive Pulmonary Disease (5 l NC chronically) CV/HEM Anemia, Congestive Heart Failure and Myocardial Infarction Chronic Renal Insufficiency Metabolic Diabetes Mellitus Anesthetic Plan ASA status: 4 Anesthesia: MAC Risk of > 500 ml blood loss (7ml/kg in children): No Medications/Allergies Home Medications ?Medication ?Instructions ?Recorded ?Confirmed ?Last Taken ?Type aspirin 81 mg tablet,delayed 81 mg PO DAILY #90 tabs 10/06/24 01/15/25 01/15/25 Rx release divalproex 250 mg tablet,delayed 250 mg PO .7 pm #30 tabs 11/26/24 01/15/25 01/15/25 Rx release (Depakote) pantoprazole 40 mg tablet,delayed 40 mg PO DAILY 12/06/24 01/15/25 01/06/25 History release glipizide 5 mg tablet, extended 5 mg PO DAILY #30 tabs 12/25/24 01/15/25 01/15/25 Rx release 24 hr ezetimibe 10 mg tablet 10 mg PO DAILY 01/03/25 01/15/25 01/15/25 History albuterol sulfate 2.5 mg/3 mL 2.5 mg inhalation Q4H PRN 01/06/25 01/15/25 01/15/25 History (0.083 %) solution for nebulization Shortness Of Breath atorvastatin 80 mg tablet 80 mg PO QPM 01/06/25 01/15/25 01/15/25 History bumetanide 2 mg tablet 2 mg PO BIDAC #60 tabs 01/13/25 01/15/25 01/15/25 Rx carvedilol 6.25 mg tablet 6.25 mg PO BID 30 days #60 tabs 01/13/25 01/15/25 Unknown Rx fluconazole 200 mg tablet 200 mg PO DAILY 14 days #14 tabs 01/13/25 01/15/25 01/15/25 Rx (Diflucan) nifedipine 30 mg tablet,extended 30 mg PO BEDTIME 30 days #30 tabs 01/13/25 01/15/25 01/15/25 Rx release 24 hr oxycodone-acetaminophen 5 mg-325 1 tab PO Q4H PRN Severe Pain 7 01/13/25 01/15/25 01/15/25 Rx mg tablet days #20 tabs sevelamer carbonate 800 mg tablet 800 mg PO TID 30 days #90 tabs 01/13/25 01/15/25 Unknown Rx sodium bicarbonate 650 mg tablet 650 mg PO TID 30 days #90 tabs 01/13/25 01/15/25 Unknown Rx tamsulosin 0.4 mg capsule (Flomax) 0.4 mg PO DAILY #30 caps 01/14/25 01/15/25 01/15/25 Rx Allergies Allergy/AdvReac Type Severity Reaction Status Date / Time No Known Allergies Allergy Verified 01/15/25 04:45 Current Medications Generic Name Dose Route Start Last Admin Trade Name [facility] PRN Reason Stop Dose Admin Atorvastatin Calcium 80 mg 01/15/25 18:00 01/15/25 17:59 Atorvastatin 40 Mg Tablet PO Not Given QPM EVELIO Bupropion HCl 150 mg 01/15/25 10:45 01/15/25 10:54 Bupropion Xl (24 Hr) 150 Mg Tablet PO Not Given DAILY EVELIO Camphor/Menthol/Phenol 1 applic 01/15/25 21:49 01/15/25 21:52 Blistex Lip Oint 7 Gm Tube TOPICAL 1 applic PRN PRN Administration DRYNESS Carvedilol 6.25 mg 01/15/25 18:00 01/15/25 17:06 Carvedilol 6.25 Mg Tablet PO 6.25 mg BID EVELIO Administration Divalproex Sodium 250 mg 01/15/25 19:00 01/15/25 20:[address] 250 Mg Tablet PO 250 mg 1900 EVELIO Administration Ezetimibe 10 mg 01/15/25 10:45 01/15/25 11:38 Ezetimibe 10 Mg Tablet PO 10 mg DAILY EVELIO Administration Furosemide 40 mg 01/15/25 15:10 01/16/25 03:55 Furosemide 10 Mg/Ml Sdv 4ml IVP 40 mg BID@0400,1600 [facility] Administration Heparin Sodium (Porcine) 5,000 unit 01/15/25 10:45 01/15/25 21:52 Heparin 5,000 Unit/Ml Inj 1 Ml SUBCUT 5,000 unit Q12H EVELIO Administration Insulin Human Lispro 0 unit 01/15/25 18:00 01/15/25 21:03 Insulin Lispro 100 Unit/1 Ml SUBCUT Not Given WM&BEDTIME [facility] Protocol Nifedipine 30 mg 01/15/25 21:00 01/15/25 21:52 Nifedipine Er (24 Hr) 30 Mg Tablet PO 30 mg BEDTIME EVELIO Administration Pantoprazole Sodium 40 mg 01/15/25 10:45 01/15/25 11:[address] 40 Mg Tablet PO 40 mg DAILY EVELIO Administration Sevelamer Carbonate 1,600 mg 01/15/25 17:00 01/16/25 06:28 Sevelamer 800 Mg Tablet PO 1,600 mg TIDAC EVELIO Administration Tamsulosin HCl 0.4 mg 01/15/25 10:45 01/15/25 11:38 Tamsulosin 0.4 Mg Capsule PO 0.4 mg DAILY EVELIO Administration Additional Medication Information Current Medications Acetaminophen (Acetaminophen 325 Mg Tablet) 650 mg PO Q6H PRN PRN Reason: Mild/Mod Pain Or Temp >/= 101 Albuterol Sulfate (Albuterol 2.5 Mg/3 Ml Neb) 2.5 mg INHALATION Q4H PRN PRN Reason: Shortness Of Breath Aspirin (Aspirin 81 Mg Ec Tablet) 81 mg PO DAILY [facility] Atorvastatin Calcium (Atorvastatin 40 Mg Tablet) 80 mg PO QPM [facility] Last Admin: 01/15/25 17:59 Dose: Not Given Bupropion HCl (Bupropion Xl (24 Hr) 150 Mg Tablet) 150 mg PO DAILY [facility] Last Admin: 01/15/25 10:54 Dose: Not Given Camphor/Menthol/Phenol (Blistex Lip Oint 7 Gm Tube) 1 applic TOPICAL PRN PRN PRN Reason: DRYNESS Last Admin: 01/15/25 21:52 Dose: 1 applic Carvedilol (Carvedilol 6.25 Mg Tablet) 6.25 mg PO BID [facility] Last Admin: 01/15/25 17:06 Dose: 6.25 mg Divalproex Sodium (Divalproex Dr 250 Mg Tablet) 250 mg PO 1900 [facility] Last Admin: 01/15/25 20:08 Dose: 250 mg Ezetimibe (Ezetimibe 10 Mg Tablet) 10 mg PO DAILY [facility] Last Admin: 01/15/25 11:38 Dose: 10 mg Fluconazole (Fluconazole 100 Mg Tablet) 200 mg PO DAILY [facility] Furosemide (Furosemide 10 Mg/Ml Sdv 4ml) 40 mg IVP BID@0400,1600 [facility] Last Admin: 01/16/25 03:55 Dose: 40 mg Glucagon (Glucagon 1 Mg/Ml Kit 1 Ml) 1 mg IM ONCE PRN; Protocol PRN Reason: Adult Acute Hypoglycemia Nursing Prot. Heparin Sodium (Porcine) (Heparin 5,000 Unit/Ml Inj 1 Ml) 5,000 unit SUBCUT Q12H [facility] Last Admin: 01/15/25 21:52 Dose: 5,000 unit Albumin Human (Albumin) 12.5 gm in 50 mls @ 60 mls/hr IV PRN PRN PRN Reason: Hypotension and/or symptomatic Dextrose (D5w) 500 mls @ 0 mls/hr IV ONCE PRN; Protocol PRN Reason: Adult Acute Hypoglycemia Prot Dextrose (D10w) 125 mls @ 750 mls/hr IV PRN PRN; Protocol PRN Reason: Adult Acute Hypoglycemia Nursing Protocol Dextrose (D10w) 250 mls @ 1,000 mls/hr IV PRN PRN; Protocol PRN Reason: Adult Acute Hypoglycemia Nursing Protocol Insulin Human Lispro (Insulin Lispro 100 Unit/1 Ml) 0 unit SUBCUT WM&BEDTIME [facility]; Protocol Last Admin: 01/15/25 21:03 Dose: Not Given Multivitamins (E-Qrjhrpu-Uxzquyx C Tablet) 1 each PO DAILY [facility] Nifedipine (Nifedipine Er (24 Hr) 30 Mg Tablet) 30 mg PO BEDTIME [facility] Last Admin: 01/15/25 21:52 Dose: 30 mg Oxycodone/Acetaminophen (Oxycodone-Apap 5-325 Mg Tablet) 1 tab PO Q4H PRN PRN Reason: Severe Pain Pantoprazole Sodium (Pantoprazole Dr 40 Mg Tablet) 40 mg PO DAILY [facility] Last Admin: 01/15/25 11:38 Dose: 40 mg Sevelamer Carbonate (Sevelamer 800 Mg Tablet) 1,600 mg PO TIDAC [facility] Last Admin: 01/16/25 06:28 Dose: 1,600 mg Sodium Bicarbonate (Sodium Bicarbonate 650 Mg Tablet) 650 mg PO TID [facility] Last Admin: 01/15/25 21:52 Dose: 650 mg Tamsulosin HCl (Tamsulosin 0.4 Mg Capsule) 0.4 mg PO DAILY [facility] Last Admin: 01/15/25 11:38 Dose: 0.4 mg PFSH Anesthesia Medical History (Updated 01/16/25 @ 00:09 by Spike Armstrong MD) Bipolar II disorder Essential hypertension Volume overload Type 2 diabetes mellitus Glomerulosclerosis Renal biopsy: Pathology: Nodular diabetic glomerulosclerosis class III, ATN. (HFpEF) heart failure with preserved ejection fraction Poor compliance with medication CKD (chronic kidney disease), stage V Influenza Acute on chronic renal failure Acute hypoxemic respiratory failure Community acquired pneumonia HALIE (acute kidney injury) Non-STEMI (non-ST elevated myocardial infarction) Hyperglycemia Hammertoe of right foot Callus of heel Blurred vision CKD (chronic kidney disease) stage V requiring chronic dialysis Nicotine dependence, cigarettes, uncomplicated Bereavement Mother in February 2024 Cannabis use disorder, moderate, dependence Chronic post-traumatic stress disorder Impaired visual perception Psychiatric care Anemia 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 Social History Smoking and tobacco/nicotine status: former use of tobacco/nicotine Alcohol intake: former Adopted: No Caregiver/support person: No Lives independently: Yes Household members: none Housing: Apartment Marital status: Number of children: 1 Highest education level completed: High School Graduate service: No Current occupational status: disabled Current occupational exposures/hazards: No Pets and animals: Yes Pets & animals: cat(s) and dog(s) Leisure activites: other Leisure activities details: play music Sexually active: No Do you think of yourself as: Straight/Heterosexual Current gender identity: Male Carmita/Baptism: Spiritism Special carmita needs: No Agree to transfusion: Yes Data Anesthesia 01/16/25 03:41 01/16/25 03:41 Short CBC 01/15/25 01/16/25 Range/Units 05:30 03:41 WBC 10.71 9.67 (3.29-11.43) 10^3/uL Hgb 8.10 L 8.50 L (11.27-16.99) g/dL Hct 25.2 L 26.9 L (37-53) % MCV 89.4 90.6 (82-101) fl Plt Count 348 348 (157-399) 10^3/cmm Neut % (Auto) 75.0 70.0 % Neut # (Auto) 8.02 H 6.77 (1.8-7.7) 10^3/uL BMP 01/15/25 01/16/25 05:30 03:41 Sodium 136 140 Potassium 4.5 4.6 Chloride 98 101 Carbon Dioxide 22 24 BUN 77 H 71 H Creatinine 8.0 H* 7.3 H* Glucose 85 113 Calcium 7.4 L 7.5 L Cardiac Enzymes 01/15/25 01/15/25 01/15/25 Range/Units 05:30 07:42 11:30 Troponin T Baseline 328 H* (0-15) ng/L Troponin T 120 Minute 302.5 H (0-15) ng/L Delta Troponin T -25.5 L (0-10) ABS# Troponin T Hi Sens 6Hr 310.6 H (0-15) ng/L Troponin T Hi Sens 6Hr Delta -17.4 L (0-12) ng/L NT-Pro-B Natriuret Pep 22202 H (0-125) pg/mL Liver Function 01/15/25 01/16/25 Range/Units 05:30 03:41 Total Bilirubin 0.2 0.2 (0.15-1.2) mg/dL AST 13 14 (0-40) U/L ALT 6 7 (0-41) U/L Alkaline Phosphatase 95 93 (40-130) U/L Albumin 3.1 L 3.0 L (3.5-5.2) g/dL Urine 01/15/25 Range/Units 17:25 Urine Color Yellow (Yellow) Urine Appearance Clear (CLEAR) Urine pH 5.0 (5-7) Ur Specific [place] 1.013 (1.005-1.030) Urine Protein 3+ A (Negative) Urine Glucose (UA) Negative (Normal) Urine Ketones Negative (Negative) Urine Nitrate Negative (Negative) Urine Bilirubin Negative (Negative) Ur Leukocyte Esterase Negative (Negative) Urine RBC 0-2 (0-2) /hpf Urine WBC 0-5 (0-5) /hpf COVID Results 01/15/25 05:30 SARS-CoV-2 (PCR) Negative Microbiology 01/15/25 05:30 Blood Culture - Preliminary Blood NEGATIVE TO DATE 01/15/25 05:30 Blood Culture - Preliminary Blood NEGATIVE TO DATE Cardiac Studies: Echocardiogram 12/08/24 Echocardiogram Limited Views 01/15/25 Sestamibi Stress Test (Cardiology) 12/08/24
[2025-01-16] MEDS: sodium chloride 0.9% 1,000 ML 30 ML IV (09:19)
--- NOTE | 2025-01-16 09:23 | SC_ITS ---
WS: [id number] Dialysis catheter insertion, 01/16/2025 Clinical Data: DIALYSIS CATH Comparison: Portable chest, 01/15/2025 Findings: Dr. Suárez inserted a right dialysis catheter. SC/C-arm FL for CVA [id number] Impression: Insertion right dialysis catheter.
[2025-01-16 09:27] LABS: Glucose Point of Care 88 mg/dL (70-110)
--- NOTE | 2025-01-16 09:35 | PM.PN ---
Subjective Subjective: He is feeling tired, generally weak. Awaiting placement of hemodialysis catheter. Still significant peripheral edema. Vitals/I&O/Wt Last Vital Signs Temp 97.9 F 01/16/25 09:15 Pulse 100 01/16/25 09:15 Resp 20 H 01/16/25 09:15 BP 159/80 01/16/25 09:15 Pulse Ox 95 01/16/25 09:15 O2 Del Method Nasal Cannula 01/16/25 09:15 O2 Flow Rate 4.5 01/16/25 09:15 01/15/25 01/16/25 01/16/25 22:59 06:59 14:59 Intake Total 840 / 1200 200 / 1400 Output Total 1350 / 1350 1250 / 2600 Balance -510 / -150 -1050 / -1200 Weight last 48 hrs Weight 86.319 kg Weight 86.891 kg Weight 90.265 kg Physical Exam Const: COMMON NORMALS: patient oriented x3 and alert GENERAL APPEARANCE: cooperative ORIENTATION/CONSCIOUSNESS: Yes awake HENMT: COMMON NORMALS: oropharynx normal Neck/C-Spine: COMMON NORMALS: no JVD Resp: COMMON NORMALS: normal respiratory effort and clear to auscultation bilaterally AUSCULTATION: clear to auscultation bilaterally Cardio: COMMON NORMALS: no JVD, regular rhythm, S1 normal heart sound present, S2 normal heart sound present and No murmurs present (Cardio) RHYTHM: regular rhythm HEART SOUNDS: S1 normal heart sound present and S2 normal heart sound present GI: COMMON NORMALS: Normal to inspection, nondistended, normoactive bowel sounds present, Soft to palpation and non-tender PALPATION: Yes Soft to palpation Extremity: COMMON NORMALS: no joint enlargement GENERAL: Yes edema (2+ BLLE) Neuro: COMMON NORMALS: patient oriented x3 and moves all extremities SENSORIUM/ORIENTATION: Yes alert Psych: ATTITUDE: Yes uncooperative and Yes evasive MOOD & AFFECT: Yes irritable and Yes Labile affect present Skin: COMMON NORMALS: no rashes or lesions noted GENERAL SKIN EXAM: no rashes or lesions noted Data 01/16/25 03:41 01/16/25 03:41 Micro: Microbiology 01/15/25 05:30 Blood Culture - Preliminary Blood NEGATIVE TO DATE 01/15/25 05:30 Blood Culture - Preliminary Blood NEGATIVE TO DATE A&P Assessment and plan (1) End-stage renal disease (ESRD): Discussed with nephrology, as per nephrology discussion with the patient, he is proceeding to hemodialysis catheter placement and initiation of dialysis, with anticipated performance of at least several sessions of dialysis to assess tolerance and response and correct decompensated congestive heart failure and volume overload. Monitor for risk of hypotension. Hemodialysis earlier today. Reviewed intake and output, he did produce urine. Reviewed BUN, creatinine, elevated 71, 7.3 respectively. Reviewed potassium normal. Reviewed bicarb 24, reviewed anion gap 19.6. Reviewed iron studies, magnesium, phosphorus. Reviewed nephrology note. Discussed with nursing, catalytic case operator. Case management is reaching out to one additional facility that we will consider him for hemodialysis. Reassess CBC, chemistry. He declined for records from [facility]. (2) (HFpEF) heart failure with preserved ejection fraction: Continue diuresis as tolerating. Hemodialysis. Monitor intake and output. Reviewed. Reviewed chemistry. Monitor for risk of electrolyte deficiency with IV diuretics and dialysis. Reassess chemistry. Limited echo has been obtained, reviewed, discussed with cnc lathe programmer. Decompensated HFpEF with progression of chronic kidney disease appears to be reaching end-stage kidney disease, decompensation despite treatment with IV diuretic infusion, discharged 2 days ago. NT-proBNP 19,620. With lower extremity edema. Generalized weakness. Requiring 3 L of oxygen, chronically on 5. With noted troponin elevation, higher than prior, 328 baseline, 202 2-hour, 6-hour 310. Discussed with highway maintenance supervisor, discussed with cnc lathe programmer. Appreciate consultation. Unclear whether he has been taking his medications. Will switch to IV Lasix for now. Monitor for risk of electrolyte deficiency with IV diuresis. As per nephrology assessment preparations for renal replacement therapy. Fluid restriction 1000 mL. (3) Elevated troponin: Discussed with cnc lathe programmer, as per review of troponin, patient condition, limited echocardiogram, as well as recent stress test, at this time patient to continue with current medications. Continue medical therapy. Carvedilol been discontinued with concern for possible reactive airway disease. Metoprolol is considered. Generalized weakness, did not feel right prior to presentation. Troponin noted with elevation 328 at baseline, at 2 hours 302, at 6 hours 310. Although this is also in the setting of worsening renal function with progression to ESRD. Reviewed prior stress test back in July. Discussed with cnc lathe programmer. Appreciate consultation. Continue aspirin, statin, beta-coco. Monitor on telemetry with risk of arrhythmia. Reviewed chemistry. Reassess chemistry. Check magnesium. (4) Lack of social support: Lives alone. With limited vision. Has had some support from [facility] cherry picker operator. Discussed with catalytic case operator, appreciate consultation. Plan Bipolar disorder: Discussed with psychiatrist. Reviewed psychiatry note. Without signs of decompensated bipolar disorder. Having capacity to make decisions. No additional medication adjustment would be advisable at current time. Anemia: Platelets noted normal. Hemoglobin 8.5. Recheck blood counts. Reviewed iron studies. DM2: Continue diabetic diet. Monitor POC glucose. SSI insulin. HTN: Monitor blood pressures. Continue Coreg. PDMP PDMP Reviewed: Not Reviewed Attestations Medical Necessity Statement*: Continue admission for assessment management of progression to acute renal failure, with decompensated congestive heart failure, progression to end-stage kidney disease and is gentleman with limited social support, additional comorbidities as above. Diagnoses End-stage renal disease (ESRD) N18.6 (HFpEF) heart failure with preserved ejection fraction I50.30 Elevated troponin R79.89 Lack of social support Z65.8
[2025-01-16] MEDS: ceFAZolin 2,000 mg SDV 2000 MG IVP (09:45)
[2025-01-16] MEDS: lidocaine-epi 1% PF 1:200,000 30 mL SDV INJECTION (09:50)
[2025-01-16] MEDS: BUPivacaine 0.25% INJ 30 mL INJECTION (09:50)
--- NOTE | 2025-01-16 10:00 | PC.CHAP ---
Pastoral Care Encounter/Spiritual Assessment Type of Contact [] Declined associate professor visit [] Patient/Family/Request visit [] Outpatient visit [] Follow-up visit [] Physician referral [] Code/Alert [] Routine visit [] Staff referral [] Actively dying [x] Patient sleeping [] Family support [] [] Out of room [] Palliative care [] [] Receiving care in room [] Pre-surgical visit [] Trauma [] Long length of stay [] ICU visit [] Other: Relational/Emotional Strength [] Patient feels connected with others/family/visitors/staff [] Distress [] Loneliness/isolation [] Abandonment Spirituality of Patient [] Person of Carmita [] Attends Sabianism of their Carmita [] Believes in Prayer [] Reads Bible or Roman Catholic materials [] There are Spiritual issues to be addressed Dress Operator 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 [] Prayer [] Active listening [] Non-anxious presence [] Spiritual/emotional support [] Crisis/trauma care [] Spiritual counseling [] Bereavement support [] Provided bereavement packet [] Provided Bible/devotional materials [] Provided toy/stuffed animal, coloring book to patient or family member [] Provided Communion [] Anointing/Dwale [] Salvation [] Completed spiritual assessment [] Other: Impact on Illness or Injury [] Angry [] Fearful [] Anxious [] Often cries [] Exhaustion [] Unable to work [] Unable to attend presybeterian [] Unable to walk/stand [] Unable to read [] Unable to drive [] Unable to eat/drink [] Unable to sleep [] Unable to be with family [] Patient intubated [] Other: Summary Time spent with patient
[2025-01-16] MEDS: heparin, porcine 1,000 unit/mL INJ 10 mL 10000 UNIT INJECTION (10:35)
[2025-01-16] MEDS: heparin,porcine 1,000 unit/mL INJ 1 mL 1000 UNIT INJECTION (10:37)
--- NOTE | 2025-01-16 10:42 | PM.OP ---
Operative Report Date of procedure: January 16, 2025 Pre-op diagnosis: Chronic kidney disease Post-op diagnosis: same Post-op findings: 27 cm tunneled dialysis catheter placed on the right chest. Access right internal jugular vein using ultrasound. Confirmed adequate placement using intraoperative fluoroscopy. Able to draw and flush easily both ports. Procedure done: Tunneled dialysis catheter placement Implants: 27 cm tunneled dialysis catheter placed Specimens removed/disposition: N/A Pathology: none sent Surgeon: Tommie Suárez MD Sheet Rocker: N/A Anesthesia: MAC Estimated blood loss (mL): 50 Complications: N/A Findings: 27 cm tunneled dialysis catheter placed on the right chest. Access right internal jugular vein using ultrasound. Confirmed adequate placement using intraoperative fluoroscopy. Able to draw and flush easily both ports. Condition: stable Disposition: floor Brief History: 60-year-old male with history of chronic kidney disease who required a tunneled dialysis catheter. Discussed risk and benefits and patient agreed to proceed with tunneled dialysis catheter placement. Procedure: Patient was brought into the operating room and a timeout was carried out. Procedure was done under MAC. Patient was placed supine with the arms tucked and in Trendelenburg. Patient was prepped and draped in the usual sterile fashion. Using ultrasound guidance the right internal jugular vein was accessed. A guidewire was then placed down to the atriocaval junction using fluoroscopy. The finder needle was removed and the guidewire was secured. I then turned my attention to creating a pocket over the right chest. Make sure to locally infiltrated using plain lidocaine and bupivacaine at the site of the pocket and throughout the tunnel site. I confirmed adequate hemostasis at the pocket. I then proceeded to place the 27cm tunneled dialysis catheter in the chest pocket. I tunneled the catheter from the chest to the neck at the site where I accessed the internal jugular vein. At this point, I used a series of dilators to dilate the tract into the internal jugular vein using fluoroscopy. I then placed the introducer. I removed the guidewire and proceeded to thread the dialysis catheter through the introducer. In the process, I removed the sheath as a completely pushed the catheter into the internal jugular vein. I then confirmed adequate placement of the catheter in the superior vena jack by performing intraoperative interpretation of fluoroscopy. There were no kinks noted throughout the trajectory of the catheter. I then proceeded to test the port and was satisfied with its functionality. I proceeded to flush the catheter without any issues using heparinized saline. Skin was closed using deep dermal 3-0 Vicryl, subcuticular 4-0 Monocryl, and Dermabond. Patient was then transferred to PACU without any complications.
[2025-01-16] MEDS: fentaNYL 50 mcg/mL INJ 2mL IVP (11:40)
--- NOTE | 2025-01-16 11:55 | ANE.PACU2 ---
Inpatient post-anesthesia follow up: Airway intact: Yes Vital signs: Temperature 98.0 F Pulse Rate 92 Respiratory Rate 18 Blood Pressure 147/83 Pulse Oximetry 96 Oxygen Delivery Me thod Nasal Cannula Oxygen Flow Rate 5 Fraction of Inspir ed Oxygen Hydration adequate: Yes Nausea and vomiting: No Pain level: 1 Mental status: Baseline
--- NOTE | 2025-01-16 12:18 | PC.NURSE ---
Patient received from PACU s/p right upper chest tunnelled dialysis catheter placement. Dressing to site remains c,d,i without s/s of bleeding or hematoma formation observed.
[2025-01-16 12:28] LABS: Glucose Point of Care 90 mg/dL (70-110)
[2025-01-16] MEDS: aspirin 81 mg EC Tablet PO (13:31)
[2025-01-16] MEDS: pantoprazole DR 40 mg Tablet PO (13:32)
[2025-01-16] MEDS: ergocalciferol (vitamin D2) 50,000 Unit Capsule 50000 UNIT PO (13:32)
[2025-01-16] MEDS: fluconazole 100 mg Tablet 200 MG PO (13:32)
[2025-01-16] MEDS: b-complex-vitamin c Tablet 1 EACH PO (13:32)
[2025-01-16] MEDS: ezetimibe 10 mg Tablet PO (13:34)
[2025-01-16] MEDS: tamsulosin 0.4 mg Capsule PO (13:34)
[2025-01-16] MEDS: epoetin alfa-epbx 10,000 unit/ml SDV (ESRD) 10000 UNIT SUBCUT (13:53)
--- NOTE | 2025-01-16 16:19 | PC.NURSE ---
Patient transferred to [place] [id number]. Report called to RAMO Shelton. Patient dropped off for dialysis.
[2025-01-16 16:55] LABS: Glucose Point of Care 140 mg/dL (70-110)
[2025-01-16] MEDS: atorvastatin 40 mg Tablet 80 MG PO (18:24)
[2025-01-16] MEDS: divalproex DR 250 mg Tablet PO (18:53)
[2025-01-16 20:26] LABS: Glucose Point of Care 381 mg/dL (70-110)
[2025-01-16] MEDS: NIFEdipine ER (24 hr) 30 mg Tablet PO (20:48)
[2025-01-16] MEDS: metoprolol tartrate 50 mg Tablet PO (20:48)
[2025-01-16] MEDS: insulin lispro 100 unit/1 mL SUBCUT (20:48)
[2025-01-16] MEDS: heparin 5,000 unit/mL INJ 1 mL 5000 UNIT SUBCUT (22:22)
--- NOTE | 2025-01-16 22:25 | P.PN_ITS ---
Subjective 2 Subjective: Patient had the dialysis catheter placement today followed by dialysis. Patient is feeling better. No chest pain or shortness of breath. Medications: Medication Review Details: Current Medications Acetaminophen (Acetaminophen 325 Mg Tablet) 650 mg PO Q6H PRN PRN Reason: Mild/Mod Pain Or Temp >/= 101 Albuterol Sulfate (Albuterol 2.5 Mg/3 Ml Neb) 2.5 mg INHALATION Q4H PRN PRN Reason: Shortness Of Breath Aspirin (Aspirin 81 Mg Ec Tablet) 81 mg PO DAILY [facility] Last Admin: 01/16/25 13:31 Dose: 81 mg Atorvastatin Calcium (Atorvastatin 40 Mg Tablet) 80 mg PO QPM [facility] Last Admin: 01/16/25 18:24 Dose: 80 mg Bupropion HCl (Bupropion Xl (24 Hr) 150 Mg Tablet) 150 mg PO DAILY [facility] Last Admin: 01/16/25 13:35 Dose: Not Given Camphor/Menthol/Phenol (Blistex Lip Oint 7 Gm Tube) 1 applic TOPICAL PRN PRN PRN Reason: DRYNESS Last Admin: 01/15/25 21:52 Dose: 1 applic Divalproex Sodium (Divalproex Dr 250 Mg Tablet) 250 mg PO 1900 [facility] Last Admin: 01/16/25 18:53 Dose: 250 mg Ezetimibe (Ezetimibe 10 Mg Tablet) 10 mg PO DAILY [facility] Last Admin: 01/16/25 13:34 Dose: 10 mg Ergocalciferol (Ergocalciferol (Vitamin D2) 50,000 Unit Capsule) 50,000 unit PO Q7D [facility] Last Admin: 01/16/25 13:32 Dose: 50,000 unit Fluconazole (Fluconazole 100 Mg Tablet) 200 mg PO DAILY [facility] Last Admin: 01/16/25 13:32 Dose: 200 mg Furosemide (Furosemide 10 Mg/Ml Sdv 4ml) 40 mg IVP BID@0400,1600 [facility] Last Admin: 01/16/25 18:23 Dose: 40 mg Glucagon (Glucagon 1 Mg/Ml Kit 1 Ml) 1 mg IM ONCE PRN; Protocol PRN Reason: Adult Acute Hypoglycemia Nursing Prot. Heparin Sodium (Porcine) (Heparin 5,000 Unit/Ml Inj 1 Ml) 5,000 unit SUBCUT Q12H [facility] Last Admin: 01/15/25 21:52 Dose: 5,000 unit Albumin Human (Albumin) 12.5 gm in 50 mls @ 60 mls/hr IV PRN PRN PRN Reason: Hypotension and/or symptomatic Dextrose (D5w) 500 mls @ 0 mls/hr IV ONCE PRN; Protocol PRN Reason: Adult Acute Hypoglycemia Prot Dextrose (D10w) 125 mls @ 750 mls/hr IV PRN PRN; Protocol PRN Reason: Adult Acute Hypoglycemia Nursing Protocol Dextrose (D10w) 250 mls @ 1,000 mls/hr IV PRN PRN; Protocol PRN Reason: Adult Acute Hypoglycemia Nursing Protocol Insulin Human Lispro (Insulin Lispro 100 Unit/1 Ml) 0 unit SUBCUT WM&BEDTIME EVELIO; Protocol Last Admin: 01/16/25 20:48 Dose: 12 unit Isosorbide Mononitrate (Isosorbide Mononitrate Er 30 Mg Tablet) 30 mg PO DAILY [facility] Metoprolol Tartrate (Metoprolol Tartrate 50 Mg Tablet) 50 mg PO BID@0900,2100 [facility] Last Admin: 01/16/25 20:48 Dose: 50 mg Multivitamins (E-Agatqmu-Fhtrdfc C Tablet) 1 each PO DAILY [facility] Last Admin: 01/16/25 13:32 Dose: 1 each Nifedipine (Nifedipine Er (24 Hr) 30 Mg Tablet) 30 mg PO BEDTIME [facility] Last Admin: 01/16/25 20:48 Dose: 30 mg Oxycodone/Acetaminophen (Oxycodone-Apap 5-325 Mg Tablet) 1 tab PO Q4H PRN PRN Reason: Severe Pain Pantoprazole Sodium (Pantoprazole Dr 40 Mg Tablet) 40 mg PO DAILY [facility] Last Admin: 01/16/25 13:32 Dose: 40 mg Sevelamer Carbonate (Sevelamer 800 Mg Tablet) 1,600 mg PO TIDAC [facility] Last Admin: 01/16/25 13:32 Dose: 1,600 mg Tamsulosin HCl (Tamsulosin 0.4 Mg Capsule) 0.4 mg PO DAILY [facility] Last Admin: 01/16/25 13:34 Dose: 0.4 mg Vitals/I&O/Wt Last Vital Signs Temp 97.5 F L 01/16/25 20:00 Pulse 106 H 01/16/25 20:00 Resp 18 01/16/25 20:00 BP 169/87 01/16/25 20:00 Pulse Ox 96 01/16/25 20:00 O2 Del Method Nasal Cannula 01/16/25 16:53 O2 Flow Rate 5 01/16/25 11:55 01/16/25 01/16/25 01/16/25 06:59 14:59 22:59 Intake Total 200 / 1400 478.5 / 478.5 516 / 994.5 Output Total 1250 / 2600 2120 / 2140 Balance -1050 / -1200 458.5 / 458.5 -1604 / -1145.5 Weight last 48 hrs Weight 189 lb 2.506 oz Weight 190 lb 4.8 oz Weight 191 lb 9 oz Weight 199 lb Physical Exam 2 Narrative: GENERAL: The patient is alert and oriented times three. Not in any acute distress. HEENT: No significant pallor, icterus or lymphadenopathy.Oral cavity: There are no mucous membrane lesions. NECK: Trachea appears to be central. No masses noted. No JVD or thyromegaly appreciated. RESPIRATORY: Chest is symmetrical. No intercostals muscle retraction or any accessory muscle activation. There is no chest wall tenderness. Breath sounds are heard bilaterally. No rales or rhonchi heard. No evidence of any consolidation. BREASTS: Deferred. HEART: The heart sounds are normal. No S3 or S4. Short systolic murmur at the lower sternal border. No diastolic murmurs. No pericardial rub ABDOMEN: No vessel pulsations or distention. No tenderness. No organomegaly appreciated. Bowel sounds are normally heard. : Deferred. RECTAL: Deferred. LYMPHATIC: No lymphadenopathy noted in the neck. EXTREMITIES: 1-2+ edema both lower extremities. No cyanosis. Peripheral pulses are palpable and fairly good volume. MUSCULOSKELETAL: No acute joint deformities or swelling SKIN: There are no significant rashes or ecchymosis NEUROPSYCHIATRIC: The patient is alert and oriented x3. Appears to be in a good mood. No tremors or rigidity noted. Data 01/16/25 03:41 01/16/25 03:41 Other Labs: Laboratory Last Values WBC 9.67 10^3/uL (3.29-11.43) 01/16/25 03:41 RBC 2.97 10^6/uL (3.85-5.65) L 01/16/25 03:41 Hgb 8.50 g/dL (11.27-16.99) L 01/16/25 03:41 Hct 26.9 % (37-53) L 01/16/25 03:41 MCV 90.6 fl (82-101) 01/16/25 03:41 MCH 28.6 pg (27-33) 01/16/25 03:41 MCHC 31.6 g/dL (30-55) 01/16/25 03:41 RDW 13.6 % (12.1-15.1) 01/16/25 03:41 Plt Count 348 10^3/cmm (157-399) 01/16/25 03:41 MPV 9.2 fL (7.4-10.4) 01/16/25 03:41 Neut % (Auto) 70.0 % 01/16/25 03:41 Lymph % (Auto) 14.4 % 01/16/25 03:41 [place] % (Auto) 11.1 % 01/16/25 03:41 Eos % (Auto) 1.9 % 01/16/25 03:41 Baso % (Auto) 1.2 % 01/16/25 03:41 Neut # (Auto) 6.77 10^3/uL (1.8-7.7) 01/16/25 03:41 Lymph # (Auto) 1.4 10^3/uL (0.8-4.8) 01/16/25 03:41 [place] # (Auto) 1.1 10^3/uL (0.2-0.9) H 01/16/25 03:41 Eos # (Auto) 0.2 10^3/uL (0.0-0.8) 01/16/25 03:41 Baso # (Auto) 0.1 10^3/uL (0.0-0.1) 01/16/25 03:41 Nucleated RBC % (auto) 0 % 01/16/25 03:41 Nucleated RBCs # 0.0 /100WBC 01/16/25 03:41 Sodium 140 mmol/L (136-145) 01/16/25 03:41 Potassium 4.6 mmol/L (3.5-5.1) 01/16/25 03:41 Chloride 101 mmol/L (98-107) 01/16/25 03:41 Carbon Dioxide 24 mmol/L (22-29) 01/16/25 03:41 Anion Gap 19.6 (5-19) H 01/16/25 03:41 BUN 71 mg/dL (6-20) H 01/16/25 03:41 Creatinine 7.3 mg/dL (0.7-1.2) H* 01/16/25 03:41 GFR Calculation 7.7 mL/min (90-130) L 01/16/25 03:41 Glucose 113 mg/dL (65-115) 01/16/25 03:41 POC Glucose 381 mg/dL (70-110) H 01/16/25 20:21 Calculated Osmolality 312 mOsm/kg (285-295) H 01/16/25 03:41 Lactic Acid 0.8 mmol/L (0.5-2.2) 01/15/25 05:30 Uric Acid 10.0 mg/dL (3.4-7.0) H 01/15/25 05:30 Calcium 7.5 mg/dL (8.5-10.5) L 01/16/25 03:41 Phosphorus 5.9 mg/dL (2.5-4.5) H 01/16/25 03:41 Magnesium 2.1 mg/dL (1.7-2.3) 01/16/25 03:41 Iron 40 ug/dL (59-158) L 01/16/25 03:41 TIBC 179 mcg/dl 01/16/25 03:41 % Saturation 22.3 % (20-50) 01/16/25 03:41 Unsat Iron Binding 139 ug/dL (112-347) 01/16/25 03:41 Ferritin 129 ng/mL (30-400) 01/16/25 03:41 Total Bilirubin 0.2 mg/dL (0.15-1.2) 01/16/25 03:41 AST 14 U/L (0-40) 01/16/25 03:41 ALT 7 U/L (0-41) 01/16/25 03:41 Alkaline Phosphatase 93 U/L (40-130) 01/16/25 03:41 Troponin T Baseline 328 ng/L (0-15) H* 01/15/25 05:30 Troponin T 120 Minute 302.5 ng/L (0-15) H 01/15/25 07:42 Delta Troponin T -25.5 ABS# (0-10) L 01/15/25 07:42 Troponin T Hi Sens 6Hr 310.6 ng/L (0-15) H 01/15/25 11:30 Troponin T Hi Sens 6Hr Delta -17.4 ng/L (0-12) L 01/15/25 11:30 NT-Pro-B Natriuret Pep 68252 pg/mL (0-125) H 01/15/25 05:30 Total Protein 6.9 g/dL (6.6-8.7) 01/16/25 03:41 Albumin 3.0 g/dL (3.5-5.2) L 01/16/25 03:41 Globulin 3.9 g/dL (1.3-4.6) 01/16/25 03:41 25-OH Vitamin D Total 6 ng/mL (30-100) L 01/16/25 03:41 Procalcitonin 0.55 ng/mL (0-0.5) H 01/15/25 05:30 PTH Intact 201.7 pg/mL (15-65) H 01/16/25 03:41 Calcium (PTH Intact) 7.3 mg/dL (8.5-10.5) L 01/16/25 03:41 Urine Color Yellow (Yellow) 01/15/25 17:25 Urine Appearance Clear (CLEAR) 01/15/25 17:25 Urine pH 5.0 (5-7) 01/15/25 17:25 Ur Specific [place] 1.013 (1.005-1.030) 01/15/25 17:25 Urine Protein 3+ (Negative) A 01/15/25 17:25 Urine Glucose (UA) Negative (Normal) 01/15/25 17:25 Urine Ketones Negative (Negative) 01/15/25 17:25 Urine Blood 1+ (Negative) A 01/15/25 17:25 Urine Nitrate Negative (Negative) 01/15/25 17:25 Urine Bilirubin Negative (Negative) 01/15/25 17:25 Urine Urobilinogen 0.2 mg/dL (Negative) 01/15/25 17:25 Ur Leukocyte Esterase Negative (Negative) 01/15/25 17:25 Urine RBC 0-2 /hpf (0-2) 01/15/25 17:25 Urine WBC 0-5 /hpf (0-5) 01/15/25 17:25 Ur Squamous Epith Cells 0-5 /hpf (0-5) 01/15/25 17:25 Amorphous Sediment 1+ /hpf 01/15/25 17:25 Urine Bacteria None seen /hpf (NONE) 01/15/25 17:25 Hyaline Casts 50.46 /lpf 01/15/25 17:25 Fine Granular Casts 0-4 /lpf H 01/15/25 17:25 Hep Bs Antigen Non-reactive (Nonreactive) 01/15/25 05:30 Hep Bs Antibody < 3.5 (11.5-1000) L 01/15/25 05:30 Hepatitis C Antibody Non-reactive (Nonreactive) 01/15/25 05:30 Influenza A (PCR) Negative (Negative) 01/15/25 05:30 Influenza Type B (PCR) Negative (Negative) 01/15/25 05:30 RSV (PCR) Negative (Negative) 01/15/25 05:30 SARS-CoV-2 (PCR) Negative (Negative) 01/15/25 05:30 Micro: Microbiology 01/15/25 05:30 Blood Culture - Preliminary Blood NEGATIVE TO DATE 01/15/25 05:30 Blood Culture - Preliminary Blood NEGATIVE TO DATE A&P Assessment and plan (1) Acute on chronic diastolic (congestive) heart failure: Patient is a chronic kidney disease and hypoxic respiratory failure are contributing factors. Possibility of underlying coronary ischemia causing this also is a consideration. Currently the respiratory status seems to be fairly stable. May continue on the current measures. (2) Elevated troponin: This could be related to the chronic renal failure. Possibility of underlying coronary ischemia cannot be excluded. We may consider doing an angiogram, once renal status Stabilized. (3) Hyperlipidemia: May continue on the current management. Qualifiers: Hyperlipidemia type: mixed hyperlipidemia Qualified Code(s): E78.2 - Mixed hyperlipidemia (4) Essential hypertension: The blood pressure is currently elevated to stage II. Will optimize the antihypertensive medications. I may increase the dose of the nifedipine to 60 mg p.o. daily (5) Cannabis dependence, uncomplicated: Has not been taking cannabis for the last couple of weeks, as per patient (6) CKD (chronic kidney disease), stage V: Status post hemodialysis. Patient is feeling better. Management as per nephrology. (7) Bipolar II disorder: Management as per the primary (8) Chronic hypoxic respiratory failure: The oxygenation seem to be satisfactory on 5 L of oxygen by nasal cannula. The oxygen is being titrated down Plan I may discontinue the carvedilol because of the possible reactive airway disease. May be started on metoprolol 50 mg p.o. twice daily. Also may start him on isosorbide mononitrate 30 mg p.o. daily. Other medication may be continued. The dose of the nifedipine ER may be increased to 60 mg p.o. daily May consider an angiogram to evaluate the coronary arteries, when it is okay with the nephrology service. May be continued on the other symptomatic measures for the time being PDMP PDMP Reviewed: Not Reviewed Attestations 2 Medical Necessity Statement*: Deferred to the primary Coding Level of Care Code 62147 Diagnoses Acute on chronic diastolic (congestive) heart failure I50.33 Elevated troponin R79.89 Mixed hyperlipidemia E78.2 Hyperlipidemia type: mixed hyperlipidemia Essential hypertension I10 Cannabis dependence, uncomplicated F12.20 CKD (chronic kidney disease), stage V N18.5 Bipolar II disorder F31.81 Chronic hypoxic respiratory failure J96.11
--- NOTE | 2025-01-16 23:20 | PC.NURSE ---
Patient complained of feeling hot and light headed. This nurse checked blood sugar level and it was at 58. This nurse gave patient orange juice, a sandwich and jello. This nurse will check blood sugar level again in 30 minutes to make sure levels have raised to normal level.
[2025-01-16 23:33] LABS: Glucose Point of Care 58 mg/dL (70-110)
[2025-01-17] VITALS (10 sets, daily range): BP systolic 107–159; BP diastolic 53–84; PULSE 58–82; RESP 16–18; TEMP 36.6–36.8; O2SAT 92–96
[2025-01-17 00:44] LABS: Glucose Point of Care 137 mg/dL (70-110)
[2025-01-17] MEDS: FUROsemide 10 mg/mL SDV 4mL 40 MG IVP (05:10)
[2025-01-17] MEDS: sevelamer 800 mg Tablet 1600 MG PO (06:02)
[2025-01-17 06:09] LABS: Basophils # 0.2 10^3/uL (0.0-0.1); Basophils % 1.5 %; Eosinophils # 0.2 10^3/uL (0.0-0.8); Eosinophils % 1.6 %; Hematocrit 24.5 % (37-53); Lymphocytes # 1.4 10^3/uL (0.8-4.8); Lymphocytes % 13.4 %; Mean Corpuscular Hemoglobin 28.7 pg (27-33); Mean Corpuscular Volume 92.5 fl (82-101); Mean Platelet Volume 10.2 fL (7.4-10.4); Monocytes # 1.1 10^3/uL (0.2-0.9); Monocytes % 10.3 %; Neutrophils # 7.67 10^3/uL (1.8-7.7); Neutrophils % 71.9 %; Nucleated Red Blood Cells % 0 %; Platelet Count 328 10^3/cmm (157-399); Red Blood Count 2.65 10^6/uL (3.85-5.65); Red Cell Distribution Width 13.7 % (12.1-15.1); White Blood Count 10.67 10^3/uL (3.29-11.43)
[2025-01-17 06:33] LABS: Alanine Aminotransferase < 5 U/L (0-41); Albumin Level 2.7 g/dL (3.5-5.2); Alkaline Phosphatase 80 U/L (40-130); Anion Gap 14.7 (5-19); Aspartate Amino Transferase 14 U/L (0-40); Blood Urea Nitrogen 53 mg/dL (6-20); Calcium 7.3 mg/dL (8.5-10.5); Carbon Dioxide 26 mmol/L (22-29); Chloride 103 mmol/L (98-107); Globulin 3.5 g/dL (1.3-4.6); Glomerular Filtration Rate 10.1 mL/min (90-130); Glucose 121 mg/dL (65-115); Magnesium 1.9 mg/dL (1.7-2.3); Osmolality Calculated 304 mOsm/kg (285-295); Phosphorus 4.5 mg/dL (2.5-4.5); Potassium 4.7 mmol/L (3.5-5.1); Sodium 139 mmol/L (136-145); Total Bilirubin 0.2 mg/dL (0.15-1.2); Total Protein 6.2 g/dL (6.6-8.7)
[2025-01-17 06:56] LABS: Glucose Point of Care 138 mg/dL (70-110)
--- NOTE | 2025-01-17 07:15 | W.PM.OPSUD ---
Surgery/Procedure H&P Update DATE OF PROCEDURE: January 17, 2025 DATE H&P PERFORMED: 01/15/25 H&P UPDATE INFORMATION: I have reviewed H&P completed within last 30 days, I have examined patient prior to procedure and No changes to prior documentation PREOP DIAGNOSIS: ASHD PRIMARY INDICATION FOR PROCEDURE: Chest pain, abnormal myocardial perfusion imaging, multiple risk factors PLANNED PROCEDURE: Operation Date: 01/16/25 12:30 Proposed Procedures p Dialysis Catheter Insertion Haemodialysis Catheter Insertion(Not Applicable) - Tommie Suárez MD PHYSICAL EXAM: alert, oriented x 3, clear to auscultation bilaterally and regular rate & rhythm AIRWAY EVAL/ANESTHESIA PLAN: normal airway, see other exam findings, ASA III, Monitored Anesthesia, Local Anesthesia, Risks, benefits & alternatives of sedation and/or procedure discussed and Patient agrees to continue as planned ADDITIONAL INFORMATION: Patient is allergic to contrast. Also has renal insufficiency. He will be premedicated. Possibility of anaphylactic reaction event after premedication was discussed with the patient and the family which they understood well and consented to proceed. Possibility for contrast-induced nephropathy also was discussed. Patient and the family understands as well.
--- NOTE | 2025-01-17 09:06 | PM.PN ---
Subjective Subjective: The patient has no chest pain or chest tightness. Had the hemodialysis is doing a today. Tolerated the procedure very well. No new symptoms. The vitals are stable. Medications: Medication Review Details: Current Medications Acetaminophen (Acetaminophen 325 Mg Tablet) 650 mg PO Q6H PRN PRN Reason: Mild/Mod Pain Or Temp >/= 101 Albuterol Sulfate (Albuterol 2.5 Mg/3 Ml Neb) 2.5 mg INHALATION Q4H PRN PRN Reason: Shortness Of Breath Aspirin (Aspirin 81 Mg Ec Tablet) 81 mg PO DAILY [facility] Last Admin: 01/16/25 13:31 Dose: 81 mg Atorvastatin Calcium (Atorvastatin 40 Mg Tablet) 80 mg PO QPM [facility] Last Admin: 01/16/25 18:24 Dose: 80 mg Bupropion HCl (Bupropion Xl (24 Hr) 150 Mg Tablet) 150 mg PO DAILY [facility] Last Admin: 01/16/25 13:35 Dose: Not Given Camphor/Menthol/Phenol (Blistex Lip Oint 7 Gm Tube) 1 applic TOPICAL PRN PRN PRN Reason: DRYNESS Last Admin: 01/15/25 21:52 Dose: 1 applic Divalproex Sodium (Divalproex Dr 250 Mg Tablet) 250 mg PO 1900 [facility] Last Admin: 01/16/25 18:53 Dose: 250 mg Ezetimibe (Ezetimibe 10 Mg Tablet) 10 mg PO DAILY [facility] Last Admin: 01/16/25 13:34 Dose: 10 mg Ergocalciferol (Ergocalciferol (Vitamin D2) 50,000 Unit Capsule) 50,000 unit PO Q7D [facility] Last Admin: 01/16/25 13:32 Dose: 50,000 unit Fluconazole (Fluconazole 100 Mg Tablet) 200 mg PO DAILY [facility] Last Admin: 01/16/25 13:32 Dose: 200 mg Furosemide (Furosemide 10 Mg/Ml Sdv 4ml) 40 mg IVP BID@0400,1600 [facility] Last Admin: 01/17/25 05:10 Dose: 40 mg Glucagon (Glucagon 1 Mg/Ml Kit 1 Ml) 1 mg IM ONCE PRN; Protocol PRN Reason: Adult Acute Hypoglycemia Nursing Prot. Heparin Sodium (Porcine) (Heparin 5,000 Unit/Ml Inj 1 Ml) 5,000 unit SUBCUT Q12H [facility] Last Admin: 01/16/25 22:22 Dose: 5,000 unit Albumin Human (Albumin) 12.5 gm in 50 mls @ 60 mls/hr IV PRN PRN PRN Reason: Hypotension and/or symptomatic Dextrose (D5w) 500 mls @ 0 mls/hr IV ONCE PRN; Protocol PRN Reason: Adult Acute Hypoglycemia Prot Dextrose (D10w) 125 mls @ 750 mls/hr IV PRN PRN; Protocol PRN Reason: Adult Acute Hypoglycemia Nursing Protocol Dextrose (D10w) 250 mls @ 1,000 mls/hr IV PRN PRN; Protocol PRN Reason: Adult Acute Hypoglycemia Nursing Protocol Insulin Human Lispro (Insulin Lispro 100 Unit/1 Ml) 0 unit SUBCUT WM&BEDTIME [facility]; Protocol Last Admin: 01/17/25 07:33 Dose: Not Given Isosorbide Mononitrate (Isosorbide Mononitrate Er 30 Mg Tablet) 30 mg PO DAILY [facility] Metoprolol Tartrate (Metoprolol Tartrate 50 Mg Tablet) 50 mg PO BID@0900,2100 [facility] Last Admin: 01/16/25 20:48 Dose: 50 mg Multivitamins (G-Mxpmvpj-Shwosng C Tablet) 1 each PO DAILY [facility] Last Admin: 01/16/25 13:32 Dose: 1 each Nifedipine (Nifedipine Er (24 Hr) 30 Mg Tablet) 60 mg PO DAILY [facility] Oxycodone/Acetaminophen (Oxycodone-Apap 5-325 Mg Tablet) 1 tab PO Q4H PRN PRN Reason: Severe Pain Pantoprazole Sodium (Pantoprazole Dr 40 Mg Tablet) 40 mg PO DAILY [facility] Last Admin: 01/16/25 13:32 Dose: 40 mg Sevelamer Carbonate (Sevelamer 800 Mg Tablet) 1,600 mg PO TIDAC [facility] Last Admin: 01/17/25 06:02 Dose: 1,600 mg Tamsulosin HCl (Tamsulosin 0.4 Mg Capsule) 0.4 mg PO DAILY [facility] Last Admin: 01/16/25 13:34 Dose: 0.4 mg Vitals/I&O/Wt Last Vital Signs Temp 98.3 F 01/17/25 07:41 Pulse 81 01/17/25 07:41 Resp 18 01/17/25 07:41 BP 159/84 01/17/25 07:41 Pulse Ox 96 01/17/25 07:41 O2 Del Method Nasal Cannula 01/17/25 07:41 O2 Flow Rate 5 01/16/25 11:55 01/16/25 01/17/25 01/17/25 22:59 06:59 14:59 Intake Total 516 / 994.5 360 / 1354.5 240 / 240 Output Total 2520 / 1 2541 Balance -2005 / 1546.5 359 / -1187.5 240 / 240 Weight last 48 hrs Weight 197 lb 8 oz Weight 189 lb 2.506 oz Weight 190 lb 4.8 oz Weight 191 lb 9 oz Physical Exam Narrative: GENERAL: The patient is alert and oriented times three. Not in any acute distress. HEENT: No significant pallor, icterus or lymphadenopathy.Oral cavity: There are no mucous membrane lesions. NECK: Trachea appears to be central. No masses noted. No JVD or thyromegaly appreciated. RESPIRATORY: Chest is symmetrical. No intercostals muscle retraction or any accessory muscle activation. There is no chest wall tenderness. Breath sounds are heard bilaterally. No rales or rhonchi heard. No evidence of any consolidation. BREASTS: Deferred. HEART: The heart sounds are normal. No S3 or S4. Short systolic murmur at the lower sternal border. No diastolic murmurs. No pericardial rub ABDOMEN: No vessel pulsations or distention. No tenderness. No organomegaly appreciated. Bowel sounds are normally heard. : Deferred. RECTAL: Deferred. LYMPHATIC: No lymphadenopathy noted in the neck. EXTREMITIES: 1-2+ edema both lower extremities. No cyanosis. Peripheral pulses are palpable and fairly good volume. MUSCULOSKELETAL: No acute joint deformities or swelling SKIN: There are no significant rashes or ecchymosis NEUROPSYCHIATRIC: The patient is alert and oriented x3. Appears to be in a good mood. No tremors or rigidity noted. Data 01/17/25 05:02 01/17/25 05:02 Other Labs: Laboratory Last Values WBC 10.67 10^3/uL (3.29-11.43) 01/17/25 05:02 RBC 2.65 10^6/uL (3.85-5.65) L 01/17/25 05:02 Hgb 7.60 g/dL (11.27-16.99) L 01/17/25 05:02 Hct 24.5 % (37-53) L 01/17/25 05:02 MCV 92.5 fl (82-101) 01/17/25 05:02 MCH 28.7 pg (27-33) 01/17/25 05:02 MCHC 31.0 g/dL (30-55) 01/17/25 05:02 RDW 13.7 % (12.1-15.1) 01/17/25 05:02 Plt Count 328 10^3/cmm (157-399) 01/17/25 05:02 MPV 10.2 fL (7.4-10.4) 01/17/25 05:02 Neut % (Auto) 71.9 % 01/17/25 05:02 Lymph % (Auto) 13.4 % 01/17/25 05:02 [place]anner % (Auto) 10.3 % 01/17/25 05:02 Eos % (Auto) 1.6 % 01/17/25 05:02 Baso % (Auto) 1.5 % 01/17/25 05:02 Neut # (Auto) 7.67 10^3/uL (1.8-7.7) 01/17/25 05:02 Lymph # (Auto) 1.4 10^3/uL (0.8-4.8) 01/17/25 05:02 [place]anner # (Auto) 1.1 10^3/uL (0.2-0.9) H 01/17/25 05:02 Eos # (Auto) 0.2 10^3/uL (0.0-0.8) 01/17/25 05:02 Baso # (Auto) 0.2 10^3/uL (0.0-0.1) H 01/17/25 05:02 Nucleated RBC % (auto) 0 % 01/17/25 05:02 Nucleated RBCs # 0.0 /100WBC 01/17/25 05:02 Sodium 139 mmol/L (136-145) 01/17/25 05:02 Potassium 4.7 mmol/L (3.5-5.1) 01/17/25 05:02 Chloride 103 mmol/L (98-107) 01/17/25 05:02 Carbon Dioxide 26 mmol/L (22-29) 01/17/25 05:02 Anion Gap 14.7 (5-19) 01/17/25 05:02 BUN 53 mg/dL (6-20) H 01/17/25 05:02 Creatinine 5.8 mg/dL (0.7-1.2) H* 01/17/25 05:02 GFR Calculation 10.1 mL/min (90-130) L 01/17/25 05:02 Glucose 121 mg/dL (65-115) H 01/17/25 05:02 POC Glucose 138 mg/dL (70-110) H 01/17/25 06:44 Calculated Osmolality 304 mOsm/kg (285-295) H 01/17/25 05:02 Lactic Acid 0.8 mmol/L (0.5-2.2) 01/15/25 05:30 Uric Acid 10.0 mg/dL (3.4-7.0) H 01/15/25 05:30 Calcium 7.3 mg/dL (8.5-10.5) L 01/17/25 05:02 Phosphorus 4.5 mg/dL (2.5-4.5) 01/17/25 05:02 Magnesium 1.9 mg/dL (1.7-2.3) 01/17/25 05:02 Iron 40 ug/dL (59-158) L 01/16/25 03:41 TIBC 179 mcg/dl 01/16/25 03:41 % Saturation 22.3 % (20-50) 01/16/25 03:41 Unsat Iron Binding 139 ug/dL (112-347) 01/16/25 03:41 Ferritin 129 ng/mL (30-400) 01/16/25 03:41 Total Bilirubin 0.2 mg/dL (0.15-1.2) 01/17/25 05:02 AST 14 U/L (0-40) 01/17/25 05:02 ALT < 5 U/L (0-41) 01/17/25 05:02 Alkaline Phosphatase 80 U/L (40-130) 01/17/25 05:02 Troponin T Baseline 328 ng/L (0-15) H* 01/15/25 05:30 Troponin T 120 Minute 302.5 ng/L (0-15) H 01/15/25 07:42 Delta Troponin T -25.5 ABS# (0-10) L 01/15/25 07:42 Troponin T Hi Sens 6Hr 310.6 ng/L (0-15) H 01/15/25 11:30 Troponin T Hi Sens 6Hr Delta -17.4 ng/L (0-12) L 01/15/25 11:30 NT-Pro-B Natriuret Pep 97655 pg/mL (0-125) H 01/15/25 05:30 Total Protein 6.2 g/dL (6.6-8.7) L 01/17/25 05:02 Albumin 2.7 g/dL (3.5-5.2) L 01/17/25 05:02 Globulin 3.5 g/dL (1.3-4.6) 01/17/25 05:02 25-OH Vitamin D Total 6 ng/mL (30-100) L 01/16/25 03:41 Procalcitonin 0.55 ng/mL (0-0.5) H 01/15/25 05:30 PTH Intact 201.7 pg/mL (15-65) H 01/16/25 03:41 Calcium (PTH Intact) 7.3 mg/dL (8.5-10.5) L 01/16/25 03:41 Urine Color Yellow (Yellow) 01/15/25 17:25 Urine Appearance Clear (CLEAR) 01/15/25 17:25 Urine pH 5.0 (5-7) 01/15/25 17:25 Ur Specific [place] 1.013 (1.005-1.030) 01/15/25 17:25 Urine Protein 3+ (Negative) A 01/15/25 17:25 Urine Glucose (UA) Negative (Normal) 01/15/25 17:25 Urine Ketones Negative (Negative) 01/15/25 17:25 Urine Blood 1+ (Negative) A 01/15/25 17:25 Urine Nitrate Negative (Negative) 01/15/25 17:25 Urine Bilirubin Negative (Negative) 01/15/25 17:25 Urine Urobilinogen 0.2 mg/dL (Negative) 01/15/25 17:25 Ur Leukocyte Esterase Negative (Negative) 01/15/25 17:25 Urine RBC 0-2 /hpf (0-2) 01/15/25 17:25 Urine WBC 0-5 /hpf (0-5) 01/15/25 17:25 Ur Squamous Epith Cells 0-5 /hpf (0-5) 01/15/25 17:25 Amorphous Sediment 1+ /hpf 01/15/25 17:25 Urine Bacteria None seen /hpf (NONE) 01/15/25 17:25 Hyaline Casts 50.46 /lpf 01/15/25 17:25 Fine Granular Casts 0-4 /lpf H 01/15/25 17:25 Hep Bs Antigen Non-reactive (Nonreactive) 01/15/25 05:30 Hep Bs Antibody < 3.5 (11.5-1000) L 01/15/25 05:30 Hepatitis C Antibody Non-reactive (Nonreactive) 01/15/25 05:30 Influenza A (PCR) Negative (Negative) 01/15/25 05:30 Influenza Type B (PCR) Negative (Negative) 01/15/25 05:30 RSV (PCR) Negative (Negative) 01/15/25 05:30 SARS-CoV-2 (PCR) Negative (Negative) 01/15/25 05:30 Micro: Microbiology 01/15/25 05:30 Blood Culture - Preliminary Blood NEGATIVE TO DATE 01/15/25 05:30 Blood Culture - Preliminary Blood NEGATIVE TO DATE A&P Assessment and plan (1) Acute on chronic diastolic (congestive) heart failure: Patient is a chronic kidney disease and hypoxic respiratory failure are contributing factors. Possibility of underlying coronary ischemia causing this also is a consideration. Currently the respiratory status seems to be fairly stable. May continue on the current measures. (2) Elevated troponin: This could be related to the chronic renal failure. Possibility of underlying coronary ischemia cannot be excluded. Apparently the patient never had any chest pain. We may consider doing an angiogram, once renal status Stabilized. (3) Hyperlipidemia: May continue on the current management. Qualifiers: Hyperlipidemia type: mixed hyperlipidemia Qualified Code(s): E78.2 - Mixed hyperlipidemia (4) Essential hypertension: The blood pressure is currently elevated to stage II. Will optimize the antihypertensive medications. I may increase the dose of the nifedipine to 60 mg p.o. daily The blood pressure seems to be slowly getting under control. Keep monitoring the pressure closely. (5) Cannabis dependence, uncomplicated: Has not been taking cannabis for the last couple of weeks, as per patient (6) CKD (chronic kidney disease), stage V: Status post hemodialysis. Patient is feeling better. Management as per nephrology. (7) Bipolar II disorder: Management as per the primary (8) Chronic hypoxic respiratory failure: The oxygenation seem to be satisfactory on 5 L of oxygen by nasal cannula. The oxygen is being titrated down. Plan Patient may continue on the current medications. Based on the clinical progress, further recommendations will be made. Hold off on the cardiac catheterization for the time being PDMP PDMP Reviewed: Not Reviewed Attestations Medical Necessity Statement*: Deferred to the primary Coding Level of Care Code Acute Code for Chg Fwd Diagnoses Acute on chronic diastolic (congestive) heart failure I50.33 Elevated troponin R79.89 Mixed hyperlipidemia E78.2 Hyperlipidemia type: mixed hyperlipidemia Essential hypertension I10 Cannabis dependence, uncomplicated F12.20 CKD (chronic kidney disease), stage V N18.5 Bipolar II disorder F31.81 Chronic hypoxic respiratory failure J96.11
[2025-01-17] MEDS: NIFEdipine ER (24 hr) 30 mg Tablet 60 MG PO (09:48)
[2025-01-17] MEDS: fluconazole 100 mg Tablet 200 MG PO (09:49)
[2025-01-17] MEDS: metoprolol tartrate 50 mg Tablet PO ×2 (09:49→22:12)
[2025-01-17] MEDS: ezetimibe 10 mg Tablet PO (09:49)
[2025-01-17] MEDS: isosorbide mononitrate ER 30 mg Tablet PO (09:49)
[2025-01-17] MEDS: tamsulosin 0.4 mg Capsule PO (09:49)
[2025-01-17] MEDS: pantoprazole DR 40 mg Tablet PO (09:49)
[2025-01-17] MEDS: b-complex-vitamin c Tablet 1 EACH PO (09:49)
[2025-01-17] MEDS: aspirin 81 mg EC Tablet PO (09:49)
--- NOTE | 2025-01-17 10:04 | P.PN_ITS ---
Subjective 2 Subjective: The patient was seen and examined. The patient states that he tolerated dialysis well. The patient had a permacath placed yesterday. The patient has no complaints of nausea or vomiting he has less shortness of breath decreased edema. No diarrhea no constipation and would like to go home soon. Medications: Reviewed: Yes Medication Review Details: Current Medications Acetaminophen (Acetaminophen 325 Mg Tablet) 650 mg PO Q6H PRN PRN Reason: Mild/Mod Pain Or Temp >/= 101 Albuterol Sulfate (Albuterol 2.5 Mg/3 Ml Neb) 2.5 mg INHALATION Q4H PRN PRN Reason: Shortness Of Breath Aspirin (Aspirin 81 Mg Ec Tablet) 81 mg PO DAILY [facility] Last Admin: 01/17/25 09:49 Dose: 81 mg Atorvastatin Calcium (Atorvastatin 40 Mg Tablet) 80 mg PO QPM [facility] Last Admin: 01/16/25 18:24 Dose: 80 mg Bupropion HCl (Bupropion Xl (24 Hr) 150 Mg Tablet) 150 mg PO DAILY [facility] Last Admin: 01/17/25 09:48 Dose: Not Given Camphor/Menthol/Phenol (Blistex Lip Oint 7 Gm Tube) 1 applic TOPICAL PRN PRN PRN Reason: DRYNESS Last Admin: 01/15/25 21:52 Dose: 1 applic Divalproex Sodium (Divalproex Dr 250 Mg Tablet) 250 mg PO 1900 [facility] Last Admin: 01/16/25 18:53 Dose: 250 mg Ezetimibe (Ezetimibe 10 Mg Tablet) 10 mg PO DAILY [facility] Last Admin: 01/17/25 09:49 Dose: 10 mg Ergocalciferol (Ergocalciferol (Vitamin D2) 50,000 Unit Capsule) 50,000 unit PO Q7D [facility] Last Admin: 01/16/25 13:32 Dose: 50,000 unit Fluconazole (Fluconazole 100 Mg Tablet) 200 mg PO DAILY [facility] Last Admin: 01/17/25 09:49 Dose: 200 mg Furosemide (Furosemide 10 Mg/Ml Sdv 4ml) 40 mg IVP BID@0400,1600 [facility] Last Admin: 01/17/25 05:10 Dose: 40 mg Glucagon (Glucagon 1 Mg/Ml Kit 1 Ml) 1 mg IM ONCE PRN; Protocol PRN Reason: Adult Acute Hypoglycemia Nursing Prot. Heparin Sodium (Porcine) (Heparin 5,000 Unit/Ml Inj 1 Ml) 5,000 unit SUBCUT Q12H [facility] Last Admin: 01/16/25 22:22 Dose: 5,000 unit Albumin Human (Albumin) 12.5 gm in 50 mls @ 60 mls/hr IV PRN PRN PRN Reason: Hypotension and/or symptomatic Dextrose (D5w) 500 mls @ 0 mls/hr IV ONCE PRN; Protocol PRN Reason: Adult Acute Hypoglycemia Prot Dextrose (D10w) 125 mls @ 750 mls/hr IV PRN PRN; Protocol PRN Reason: Adult Acute Hypoglycemia Nursing Protocol Dextrose (D10w) 250 mls @ 1,000 mls/hr IV PRN PRN; Protocol PRN Reason: Adult Acute Hypoglycemia Nursing Protocol Insulin Human Lispro (Insulin Lispro 100 Unit/1 Ml) 0 unit SUBCUT WM&BEDTIME [facility]; Protocol Last Admin: 01/17/25 07:33 Dose: Not Given Isosorbide Mononitrate (Isosorbide Mononitrate Er 30 Mg Tablet) 30 mg PO DAILY [facility] Last Admin: 01/17/25 09:49 Dose: 30 mg Metoprolol Tartrate (Metoprolol Tartrate 50 Mg Tablet) 50 mg PO BID@0900,2100 [facility] Last Admin: 01/17/25 09:49 Dose: 50 mg Multivitamins (V-Apobxmk-Mbbahyr C Tablet) 1 each PO DAILY [facility] Last Admin: 01/17/25 09:49 Dose: 1 each Nifedipine (Nifedipine Er (24 Hr) 30 Mg Tablet) 60 mg PO DAILY [facility] Last Admin: 01/17/25 09:48 Dose: 60 mg Oxycodone/Acetaminophen (Oxycodone-Apap 5-325 Mg Tablet) 1 tab PO Q4H PRN PRN Reason: Severe Pain Pantoprazole Sodium (Pantoprazole Dr 40 Mg Tablet) 40 mg PO DAILY [facility] Last Admin: 01/17/25 09:49 Dose: 40 mg Sevelamer Carbonate (Sevelamer 800 Mg Tablet) 1,600 mg PO TIDAC [facility] Last Admin: 01/17/25 06:02 Dose: 1,600 mg Tamsulosin HCl (Tamsulosin 0.4 Mg Capsule) 0.4 mg PO DAILY [facility] Last Admin: 01/17/25 09:49 Dose: 0.4 mg Vitals/I&O/Wt Last Vital Signs Temp 98.3 F 01/17/25 07:41 Pulse 81 01/17/25 07:41 Resp 18 01/17/25 07:41 BP 159/84 01/17/25 07:41 Pulse Ox 96 01/17/25 07:41 O2 Del Method Nasal Cannula 01/17/25 07:41 O2 Flow Rate 5 01/16/25 11:55 01/16/25 01/17/25 01/17/25 22:59 06:59 14:59 Intake Total 516 / 994.5 360 / 1354.5 240 / 240 Output Total 252 / 2541 2541 Balance -2004 / 1546.5 359 / -1187.5 240 / 240 Weight last 48 hrs Weight 89.584 kg Weight 85.8 kg Weight 86.319 kg Weight 86.891 kg Physical Exam 2 Narrative: Obese male lying in bed no apparent distress using nasal cannula oxygen. Vital signs noted. HEENT normocephalic atraumatic. Neck is supple no JVP. Rt IJ PC Lungs dullness at the bases and crackles. Heart regular positive S1-S2. Abdomen is soft positive bowel sounds. Extremities bilateral edema scrotal edema. Neuro awake alert oriented x 3 and no asterixis Data 01/17/25 05:02 01/17/25 05:02 Micro: Microbiology 01/15/25 05:30 Blood Culture - Preliminary Blood NEGATIVE TO DATE 01/15/25 05:30 Blood Culture - Preliminary Blood NEGATIVE TO DATE A&P Assessment and plan (1) End-stage renal disease (ESRD): Plan 59-year-old gentleman with diabetes obesity hypertension grade 2 out of 4 diastolic dysfunction progressive renal insufficiency with renal biopsy showing recent ATN and diabetic nephrosclerosis. 1. ESRD-the patient has progressed to end-stage renal disease. The patient initiated hemodialysis yesterday and feels well. Will repeat dialysis for fluid removal today. Awaiting outpatient dialysis spot. Please use furosemide on dialysis days. 2. Anemia- iron sat of 22%, ferritin of 129. Will give IV iron he received Epogen. Will attempt to avoid blood transfusion if hemoglobin is above 7. 3. Renal bone mineral metabolism Phosphorus is improving. PTH is 201. Vitamin D is undetectable. Start vitamin D replacement. 4. Blood pressure should improve with dialysis, will start losartan 5. Elevated BNP due to combination of acute on chronic heart failure with preserved EF exacerbation and from diabetic nephrosclerosis progressing to ESRD. The plan was discussed in detail with the patient and his behavioral health care consultant. Appreciate psychiatry evaluation. 6. Cardiology appreciated -Please have administration of psychiatric social worker speak with local dialysis unit so far has been rejected from all units. Unfortunately medically I feel he would benefit from initiating dialysis at this fallout better treatment of his cardiac disease volume status and blood pressure. Patient has spoke to his psychiatrist and behavioral health here and does want to work with the medical staff. The patient was seen and examined with the aid of a nurse using audiovisual equipment. The patient consents to telehealth and to hemodialysis and will attempt to behave appropriately on dialysis. PDMP PDMP Reviewed: Not Reviewed Attestations 2 Medical Necessity Statement*: New onset ESRD hypertension question of cardiac disease. For dialysis today. Awaiting outpatient dialysis slot Time Spent in Patient Care: Greater than 35 minutes (>than 50% of time spent in counselling and/or direct pt care on unit) . Coding Level of Care Code Acute Code for g Fwd Diagnoses End-stage renal disease (ESRD) N18.6
[2025-01-17 10:37] LABS: Glucose Point of Care 215 mg/dL (70-110)
--- NOTE | 2025-01-17 11:27 | P.PN_ITS ---
Subjective 2 Subjective: Tolerated dialysis without any issues Catheter in place Vitals/I&O/Wt Last Vital Signs Temp 98.3 F 01/17/25 07:41 Pulse 82 01/17/25 10:17 Resp 18 01/17/25 10:17 BP 159/84 01/17/25 07:41 Pulse Ox 95 01/17/25 10:17 O2 Del Method Nasal Cannula 01/17/25 10:17 O2 Flow Rate 2 01/17/25 10:17 01/16/25 01/17/25 01/17/25 22:59 06:59 14:59 Intake Total 516 / 994.5 360 / 1354.5 240 / 240 Output Total 2521 / 2541 2541 Balance -2005 / -1546.5 359 / -1187.5 240 / 240 Weight last 48 hrs Weight 197 lb 8 oz Weight 189 lb 2.506 oz Weight 190 lb 4.8 oz Physical Exam 2 Narrative: Chest: Unlabored breathing room air. No lymphadenopathy. Dialysis catheter in place clean dry intact Heart: Regular rate and rhythm. Abdomen: Soft, nontender, nondistended. No masses or lymphadenopathy. Data 01/17/25 05:02 01/17/25 05:02 A&P Assessment and plan (1) End-stage renal disease (ESRD): Plan 60-year-old male status post TDC. Tolerated dialysis. Rest of care per nephrology and medicine. PDMP PDMP Reviewed: Not Reviewed Attestations 2 Medical Necessity Statement*: N/A Coding Level of Care Code 32940 Diagnoses End-stage renal disease (ESRD) N18.6 Time Spent (min) 30
[2025-01-17] MEDS: ferric gluconate 125 MG in sodium chloride 0.9% (100 ml) 100 ML 110 MG IV (12:23)
[2025-01-17] MEDS: sevelamer 800 mg Tablet PO ×2 (12:24→17:18)
[2025-01-17] MEDS: insulin lispro 100 unit/1 mL SUBCUT ×3 (12:24→22:13)
[2025-01-17] MEDS: heparin 5,000 unit/mL INJ 1 mL 5000 UNIT SUBCUT ×2 (12:25→22:13)
[2025-01-17] MEDS: heparin, porcine 1,000 unit/mL INJ 10 mL 1000 UNIT IV (13:05)
--- NOTE | 2025-01-17 15:51 | P.PN_ITS ---
Subjective 2 Subjective: He states he is breathing all right. He tolerated dialysis well. He is not sure about the edema in his legs. Vitals/I&O/Wt Last Vital Signs Temp 98.2 F 01/17/25 14:37 Pulse 63 01/17/25 15:40 Resp 17 01/17/25 15:40 BP 110/53 01/17/25 15:40 Pulse Ox 94 01/17/25 15:40 O2 Del Method Nasal Cannula 01/17/25 15:40 O2 Flow Rate 2 01/17/25 10:17 01/17/25 01/17/25 01/17/25 06:59 14:59 22:59 Intake Total 360 / 1354.5 480 / 480 110 / 590 Output Total 2541 Balance 359 / -1187.5 480 / 480 110 / 590 Weight last 48 hrs Weight 89.584 kg Weight 85.8 kg Weight 86.319 kg Physical Exam 2 Narrative: Today he is calm and cooperative. Const: COMMON NORMALS: patient oriented x3 and alert GENERAL APPEARANCE: c ooperative ORIENTATION/CONSCIOUSNESS: Yes awake HENMT: COMMON NORMALS: oropharynx normal Neck/C-Spine: COMMON NORMALS: no JVD Chest: OTHER: Right chest dialysis catheter. Resp: COMMON NORMALS: normal respiratory effort and clear to auscultation bilaterally AUSCULTATION: clear to auscultation bilaterally Cardio: COMMON NORMALS: no JVD, regular rhythm, S1 normal heart sound present, S2 normal heart sound present and No murmurs present (Cardio) RHYTHM: regular rhythm HEART SOUNDS: S1 normal heart sound present and S2 normal heart sound present GI: COMMON NORMALS: Normal to inspection, nondistended, normoactive bowel sounds present, Soft to palpation and non-tender PALPATION: Yes Soft to palpation Extremity: COMMON NORMALS: no joint enlargement GENERAL: Yes edema (1-2+ BLLE) Neuro: COMMON NORMALS: patient oriented x3 and moves all extremities S ENSORIUM/ORIENTATION: Yes alert Skin: COMMON NORMALS: no rashes or lesions noted GENERAL SKIN EXAM: no rashes or lesions noted Data 01/17/25 05:02 01/17/25 05:02 A&P Assessment and plan (1) End-stage renal disease (ESRD): He tolerated hemodialysis well, and states he is he is feeling better. He is calm and cooperative during the visit and with staff. Edema showing noted improvement in bilateral lower extremities. Fluid overload and acute diastolic congestive heart failure responding to treatment with diuresis and dialysis. Reviewed nephrology note. Reviewed surgery note. Reviewed BUN, creatinine, potassium, bicarb, gap, phosphorus, magnesium. Reviewed nephrology note. Discussed with nursing, assistant case manager. Continuing search to set up with nephrology to allow him to continue post discharge dialysis and follow-up. He really wants to stay in the area as he had moved with the intention of living here. Reassess CBC, chemistry. (2) (HFpEF) heart failure with preserved ejection fraction: Improving acute congestive heart failure with treatment with diuresis and dialysis. Diuretics have been discontinued. Continues with dialysis. Discussed with him further treatment plan, he is in agreement. Improving edema. He is feeling better. Maintaining oxygen on 2 L nasal cannula. Continues with beta-coco, ARB has been added. Continue diuresis as tolerating. Reassess intake and output. Reassess volume status. Continue hemodialysis as per nephrology and arrangements for outpatient dialysis. Monitor intake and output. Reviewed. Reviewed chemistry. Monitor for risk of electrolyte deficiency with IV diuretics and dialysis. Reassess chemistry. Limited echo has been obtained, reviewed, discussed with electrician machine shop. Fluid restriction 1000 mL. (3) Elevated troponin: Discussed with electrician machine shop, as per review of troponin, patient condition, limited echocardiogram, as well as recent stress test, at this time patient to continue with current medications. Continue medical therapy. Carvedilol been discontinued with concern for possible reactive airway disease. Metoprolol started. Generalized weakness, did not feel right prior to presentation. Troponin noted with elevation 328 at baseline, at 2 hours 302, at 6 hours 310. Although this is also in the setting of worsening renal function with progression to ESRD. Reviewed prior stress test back in July. Discussed with electrician machine shop. Appreciate consultation. Continue aspirin, statin, beta-coco. Monitor on telemetry with risk of arrhythmia. Reviewed chemistry. Reassess chemistry. Check magnesium. (4) Lack of social support: Lives alone. With limited vision. Has had some support from [facility] asp net developer. Stated in-home care was about to start before his admission here. Plan Bipolar disorder: Without signs of decompensated bipolar disorder. Having capacity to make decisions. No additional medication adjustment would be advisable at current time. Anemia: Platelets noted normal. Hemoglobin 7.6. Platelets reviewed and normal. Recheck blood counts. DM2: Hypoglycemia this morning, blood glucose down to 58. He is not on long- acting insulin. Reassess POC glucose. Continue diabetic diet. Monitor POC glucose. SSI insulin is low-dose. Hypoglycemia protocol. HTN: Monitor blood pressures. Metoprolol. Losartan. Imdur. Discussed with him regarding mild LVH and long-term goals of blood pressure targets 120/80. PDMP PDMP Reviewed: Not Reviewed Attestations 2 Medical Necessity Statement*: Continue admission for assessment management of acute congestive heart failure with acute renal failure, initiation of dialysis, post discharge planning and arrangements for continued hemodialysis and follow-up in a gentleman in a difficult social situation. Diagnoses End-stage renal disease (ESRD) N18.6 (HFpEF) heart failure with preserved ejection fraction I50.30 Elevated troponin R79.89 Lack of social support Z65.8
[2025-01-17 16:53] LABS: Glucose Point of Care 163 mg/dL (70-110)
[2025-01-17] MEDS: divalproex DR 250 mg Tablet PO (17:18)
[2025-01-17 20:58] LABS: Glucose Point of Care 146 mg/dL (70-110)
--- NOTE | 2025-01-17 22:40 | PC.NURSE ---
nurse went into room to do shift assessment, upon asking patient about his dialysis port and fistula patient became rude and uncooperative, nurse stated im going to go get my charge nurse . charge nurse went into room to de-escilate patient. will try again at a later time
[2025-01-18] VITALS (14 sets, daily range): BP systolic 108–122; BP diastolic 55–67; PULSE 63–69; RESP 16–18; TEMP 36.4–36.8; O2SAT 93–95
--- NOTE | 2025-01-18 02:58 | PC.NURSE ---
I took over care from RAMO Cortes, as Sophia stated that patient was unhappy with her and argumentative. I went into room to introduce myself to patient. Patient began stating that other nurse was a bitch. I explained to patient that I am sorry that you feel that way but I would like to move on and start over. Patient continued to complain about previous nurse. This continued for approximately 30 minutes. When I would try to state something, patient would quickly interrupt. Patient stated multiple times, why aren't you guys going to do something about that nurse, something needs to be done. That's the problem nobody wants to do anything about it. Instead, she sends her seed production field supervisor in here. I explained to patient that sometimes its best to switch nurses because sometimes two people just don't go well together. Patient states no, that's not it at all, you're just making excuses for her because she's your linnea or whatever. Patient stated, I ask the other nurse for a soda and she wasn't going to give it to me. That's ridiculous. I explained to patient that he has diabetes and is on a fluid restriction. Patient stated, you're not even listening to me, you're not even trying to see my side of it. Patient continued to say, I didn't do anything wrong, she was mean and condescending to me for no reason. Patient stated I asked her to turn my oxygen up and she refused. When someone asks you to turn your oxygen up, you should just fucking do it. I checked patient's oxygen saturation and it is 92 percent. I explained to patient that sometimes over-oxygenating can actually be a bad thing, for example with COPD patients, it can decrease their drive to breath. Patient stated, see you're taking sides. I stated to patient, I am not taking either side, I'm just trying to explain it from a nurse's viewpoint. Patient lifted up side of his mattress and said see this, I don't just have it for entertainment. I record you guys. Patient showed me his tablet under his mattress. I educated patient that he cannot record us. Patient states what are you gonna do take my tablet? Then I'll just use my phone. You can't take people's phone to where they can't even contact their family. Explained to patient that I don't appreciate being recorded. Patient stated I'm just saying, people can record you guys anytime they want and you wouldn't even know about it. Patient continued to say This is how nurses get hurt. This is why people wait in the parking lot for nurses to get off work. Because their rude. I explained to patient that I feel like we are just going in a [place] and that it is best that I step out of the room. Patient began crying and I stated I am not mad at you, I just feel it is best I step out and let you take a breather for a little while. Rosana Christianson RN and Kelly Wyatt LPN standing outside of room and heard large parts of the conversation between myself and patient.
--- NOTE | 2025-01-18 03:54 | PC.NURSE ---
patient put his call light on and asked the nurse for something to drink. nurse asked him what he would like and he said a dr frausto. nurse reminded patient of his 1000ml fluid restriction and that he is diabetic and that the nurse could bring him a diet dr frausto, patient replied that since he has been here he has always had regular dr frausto and again the nurse asked if he would drink a diet soda and he yelled and told the nurse that if she was going to argue than to get out of his damn room, nurse said im here to help you and he yelled than do it. nurse said im not doing this and walked out of the room and went to the charge nurse. charge nurse assigned patient to another nurse.
[2025-01-18 05:36] LABS: Glucose Point of Care 212 mg/dL (70-110)
[2025-01-18 05:52] LABS: Basophils # 0.2 10^3/uL (0.0-0.1); Basophils % 1.4 %; Eosinophils # 0.3 10^3/uL (0.0-0.8); Eosinophils % 2.1 %; Hematocrit 21.5 % (37-53); Lymphocytes # 1.9 10^3/uL (0.8-4.8); Lymphocytes % 15.3 %; Mean Corpuscular HGB Conc 30.2 g/dL (30-55); Mean Corpuscular Hemoglobin 28.4 pg (27-33); Mean Corpuscular Volume 93.9 fl (82-101); Mean Platelet Volume 10.6 fL (7.4-10.4); Monocytes # 1.4 10^3/uL (0.2-0.9); Monocytes % 11.8 %; Neutrophils # 8.16 10^3/uL (1.8-7.7); Neutrophils % 67.1 %; Nucleated Red Blood Cells % 0 %; Platelet Count 315 10^3/cmm (157-399); Red Blood Count 2.29 10^6/uL (3.85-5.65); Red Cell Distribution Width 13.8 % (12.1-15.1); White Blood Count 12.15 10^3/uL (3.29-11.43)
[2025-01-18 06:09] LABS: Alanine Aminotransferase < 5 U/L (0-41); Albumin Level 2.9 g/dL (3.5-5.2); Alkaline Phosphatase 75 U/L (40-130); Anion Gap 15.8 (5-19); Aspartate Amino Transferase 12 U/L (0-40); Blood Urea Nitrogen 58 mg/dL (6-20); Calcium 6.9 mg/dL (8.5-10.5); Carbon Dioxide 25 mmol/L (22-29); Chloride 98 mmol/L (98-107); Creatinine Clr Calc Pharmacy 13.4315; Globulin 3.5 g/dL (1.3-4.6); Glomerular Filtration Rate 9.3 mL/min (90-130); Glucose 174 mg/dL (65-115); Magnesium 1.8 mg/dL (1.7-2.3); Osmolality Calculated 298 mOsm/kg (285-295); Phosphorus 4.5 mg/dL (2.5-4.5); Potassium 4.8 mmol/L (3.5-5.1); Sodium 134 mmol/L (136-145); Total Bilirubin 0.2 mg/dL (0.15-1.2); Total Protein 6.4 g/dL (6.6-8.7)
[2025-01-18 06:40] LABS: Glucose Point of Care 220 mg/dL (70-110)
--- NOTE | 2025-01-18 08:37 | PM.PN ---
Subjective Subjective: Patient is weak. Had nasal bleeding. Feels better after dialysis decrease edema. Decrease nausea no vomiting positive abdominal pain. Positive dyspnea on exertion. No shortness of breath at rest. Medications: Reviewed: Yes Medication Review Details: Current Medications Acetaminophen (Acetaminophen 325 Mg Tablet) 650 mg PO Q6H PRN PRN Reason: Mild/Mod Pain Or Temp >/= 101 Albuterol Sulfate (Albuterol 2.5 Mg/3 Ml Neb) 2.5 mg INHALATION Q4H PRN PRN Reason: Shortness Of Breath Alprazolam (Alprazolam 0.5 Mg Tablet) 0.5 mg PO ONCE PRN PRN Reason: anxiety Aspirin (Aspirin 81 Mg Ec Tablet) 81 mg PO DAILY [facility] Last Admin: 01/17/25 09:49 Dose: 81 mg Atorvastatin Calcium (Atorvastatin 40 Mg Tablet) 80 mg PO QPM [facility] Last Admin: 01/17/25 17:19 Dose: Not Given Bupropion HCl (Bupropion Xl (24 Hr) 150 Mg Tablet) 150 mg PO DAILY [facility] Last Admin: 01/17/25 09:48 Dose: Not Given Camphor/Menthol/Phenol (Blistex Lip Oint 7 Gm Tube) 1 applic TOPICAL PRN PRN PRN Reason: DRYNESS Last Admin: 01/15/25 21:52 Dose: 1 applic Divalproex Sodium (Divalproex Dr 250 Mg Tablet) 250 mg PO 1900 [facility] Last Admin: 01/17/25 17:18 Dose: 250 mg Ezetimibe (Ezetimibe 10 Mg Tablet) 10 mg PO DAILY [facility] Last Admin: 01/17/25 09:49 Dose: 10 mg Ergocalciferol (Ergocalciferol (Vitamin D2) 50,000 Unit Capsule) 50,000 unit PO Q7D [facility] Last Admin: 01/16/25 13:32 Dose: 50,000 unit Fluconazole (Fluconazole 100 Mg Tablet) 200 mg PO DAILY [facility] Last Admin: 01/17/25 09:49 Dose: 200 mg Glucagon (Glucagon 1 Mg/Ml Kit 1 Ml) 1 mg IM ONCE PRN; Protocol PRN Reason: Adult Acute Hypoglycemia Nursing Prot. Heparin Sodium (Porcine) (Heparin 5,000 Unit/Ml Inj 1 Ml) 5,000 unit SUBCUT Q12H [facility] Last Admin: 01/17/25 22:13 Dose: 5,000 unit Albumin Human (Albumin) 12.5 gm in 50 mls @ 60 mls/hr IV PRN PRN PRN Reason: Hypotension and/or symptomatic Dextrose (D5w) 500 mls @ 0 mls/hr IV ONCE PRN; Protocol PRN Reason: Adult Acute Hypoglycemia Prot Dextrose (D10w) 125 mls @ 750 mls/hr IV PRN PRN; Protocol PRN Reason: Adult Acute Hypoglycemia Nursing Protocol Dextrose (D10w) 250 mls @ 1,000 mls/hr IV PRN PRN; Protocol PRN Reason: Adult Acute Hypoglycemia Nursing Protocol Ferric Sodium Gluconate 125 mg (/ Sodium Chloride) 110 mls @ 110 mls/hr IV Q24H [facility] Stop: 01/24/25 11:59 Last Infusion: 01/17/25 15:44 Dose: Infused Insulin Human Lispro (Insulin Lispro 100 Unit/1 Ml) 0 unit SUBCUT WM&BEDTIME [facility]; Protocol Last Admin: 01/17/25 22:13 Dose: 2 unit Isosorbide Mononitrate (Isosorbide Mononitrate Er 30 Mg Tablet) 30 mg PO DAILY [facility] Last Admin: 01/17/25 09:49 Dose: 30 mg Losartan Potassium (Losartan 50 Mg Tablet) 50 mg PO DAILY [facility] Metoprolol Tartrate (Metoprolol Tartrate 50 Mg Tablet) 50 mg PO BID@0900,2100 [facility] Last Admin: 01/17/25 22:12 Dose: 50 mg Multivitamins (X-Qwlyawx-Hqbjsdm C Tablet) 1 each PO DAILY [facility] Last Admin: 01/17/25 09:49 Dose: 1 each Oxycodone/Acetaminophen (Oxycodone-Apap 5-325 Mg Tablet) 1 tab PO Q4H PRN PRN Reason: Severe Pain Pantoprazole Sodium (Pantoprazole Dr 40 Mg Tablet) 40 mg PO DAILY [facility] Last Admin: 01/17/25 09:49 Dose: 40 mg Sevelamer Carbonate (Sevelamer 800 Mg Tablet) 800 mg PO TIDAC [facility] Last Admin: 01/17/25 17:18 Dose: 800 mg Sodium Chloride (Sodium Chloride 0.9% 100 Ml Bag) 50 ml IV PRN PRN PRN Reason: Blood transfusion prime and flush Stop: 01/19/25 06:08 Tamsulosin HCl (Tamsulosin 0.4 Mg Capsule) 0.4 mg PO DAILY [facility] Last Admin: 01/17/25 09:49 Dose: 0.4 mg Vitals/I&O/Wt Last Vital Signs Temp 97.7 F 01/18/25 08:00 Pulse 66 01/18/25 08:11 Resp 16 01/18/25 08:11 BP 122/65 01/18/25 08:00 Pulse Ox 94 01/18/25 08:11 O2 Del Method Nasal Cannula 01/18/25 08:11 O2 Flow Rate 3 01/18/25 08:11 01/17/25 01/18/25 01/18/25 22:59 06:59 14:59 Intake Total 850 / 1330 240 / 240 Output Total 3104 / 3104 Balance -2254 / -1774 240 / 240 Weight last 48 hrs Weight 87.09 kg Weight 87.1 kg Weight 89.584 kg Weight 85.8 kg Physical Exam Narrative: he is sitting up in bed no apparent distress using nasal cannula oxygen. Vital signs noted. HEENT normocephalic atraumatic. Neck is supple no JVP. Rt IJ PC Lungs- improved air movement b/l Heart regular positive S1-S2. Abdomen is soft positive bowel sounds. Extremities decreased bilateral edema scrotal edema. Neuro awake alert oriented x 3 and no asterixis Data 01/18/25 04:34 01/18/25 04:34 A&P Assessment and plan (1) End-stage renal disease (ESRD): now HD dependent Plan 59-year-old gentleman with diabetes obesity hypertension grade 2 out of 4 diastolic dysfunction progressive renal insufficiency with renal biopsy showing recent ATN and diabetic nephrosclerosis. 1. ESRD-the patient has progressed to end-stage renal disease. The patient initiated hemodialysis on 01-16 and had SUF yesterday -Please use furosemide on non dialysis days. 2. Anemia- iron sat of 22%, ferritin of 129. Will give IV iron he received Epogen. -assess for source of bleeding . hgb 6.5 - nasal bleeding per medicine -please transfuse blood. HD today or tomorrow as based on nurse avalibility 3. Renal bone mineral metabolism Phosphorus is improving. PTH is 201. Vitamin D is undetectable. Start vitamin D replacement. 4. Blood pressure now low to normal. as anemic- will decrese meds 5. Elevated BNP due to combination of acute on chronic heart failure with preserved EF exacerbation and from diabetic nephrosclerosis progressing to ESRD. The plan was discussed in detail with the patient and his behavioral health business consultant. Appreciate psychiatry evaluation. 6. Cardiology appreciated -Please have administration of social services technician speak with local dialysis unit so far has been rejected from all units. Unfortunately medically I feel he would benefit from initiating dialysis at this fallout better treatment of his cardiac disease volume status and blood pressure. Patient has spoke to his psychiatrist and behavioral health here and does want to work with the medical staff. The patient was seen and examined with the aid of a nurse using audiovisual equipment. The patient consents to telehealth and to hemodialysis and will attempt to behave appropriately on dialysis. PDMP PDMP Reviewed: Not Reviewed Attestations Medical Necessity Statement*: esrd, anemia, and bp issues Time Spent in Patient Care: Greater than 35 minutes Coding Level of Care Code Acute Code for Chg Fwd Diagnoses End-stage renal disease (ESRD) N18.6
--- NOTE | 2025-01-18 09:14 | PC.SOCIAL ---
IMM Update Pg. 2 of IMM updated; copy provided at bedside.
[2025-01-18] MEDS: insulin lispro 100 unit/1 mL SUBCUT ×2 (09:30→21:08)
[2025-01-18] MEDS: aspirin 81 mg EC Tablet PO (09:30)
[2025-01-18] MEDS: losartan 50 mg Tablet 25 MG PO (09:30)
[2025-01-18] MEDS: metoprolol tartrate 50 mg Tablet PO (09:31)
[2025-01-18] MEDS: tamsulosin 0.4 mg Capsule PO (09:31)
[2025-01-18] MEDS: ezetimibe 10 mg Tablet PO (09:31)
[2025-01-18] MEDS: fluconazole 100 mg Tablet 200 MG PO (09:31)
[2025-01-18] MEDS: pantoprazole DR 40 mg Tablet PO (09:31)
[2025-01-18] MEDS: sevelamer 800 mg Tablet PO ×2 (09:31→18:05)
[2025-01-18] MEDS: b-complex-vitamin c Tablet 1 EACH PO (09:31)
[2025-01-18] MEDS: isosorbide mononitrate ER 30 mg Tablet PO (09:32)
--- NOTE | 2025-01-18 10:21 | CTR_ITS ---
PROCEDURE INFORMATION: Exam: CT Chest Without Contrast; Diagnostic Exam date and time: 01/18/2025 3:59 PM Age: 60 years old Clinical indication: Pain; Other: Acute on chronic anemia TECHNIQUE: Imaging protocol: Diagnostic computed tomography of the chest without contrast. Radiation optimization: All CT scans at this facility use at least one of these dose optimization techniques: automated exposure control; mA and/or kV adjustment per patient size (includes targeted exams where dose is matched to clinical indication); or iterative reconstruction. COMPARISON: CT chest con [id number] 12/08/2024 12:53 PM RADIATION DOSE METRICS: Total DLP (mGy-cm): 866.28 FINDINGS: Tubes, catheters and devices: Dual lumen dialysis catheter seen, terminating at the distal superior vena cava. Lungs: Lung base consolidations. Upper lobe solid and subsolid nodularity, symmetric. Pleural spaces: Symmetric bilateral pleural effusions. Heart: Blood pool is hypoattenuating with respect of the myocardium consistent with history of anemia. Coronary arteries: Moderate coronary calcified atherosclerotic disease. Lymph nodes: Prominent mediastinal lymph nodes, likely reactive. Vasculature: Unremarkable. No aortic aneurysm. Bones/joints: T4 through T7 wedging deformities with superimposed Schmorl's node formation, stable. Old anterior right rib fracture deformity. Scattered degenerative change of the visualized osseous structures. Soft tissues: Unremarkable. PROCEDURE INFORMATION: Exam: CT Abdomen And Pelvis Without Contrast Exam date and time: 01/18/2025 3:59 PM Age: 60 years old Clinical indication: Pain; Other: Acute on chronic anemia TECHNIQUE: Imaging protocol: Computed tomography of the abdomen and pelvis without contrast. Radiation optimization: All CT scans at this facility use at least one of these dose optimization techniques: automated exposure control; mA and/or kV adjustment per patient size (includes targeted exams where dose is matched to clinical indication); or iterative reconstruction. COMPARISON: CT abdomen pelvis con [id number] 12/09/2024 8:46 AM RADIATION DOSE METRICS: Total DLP (mGy-cm): 866.28 FINDINGS: Lungs: Lung bases are clear as visualized. Heart: Base of heart is unremarkable as visualized. Liver: Normal. No mass. Gallbladder and biliary ducts: Collapsed gallbladder, diffuse gallbladder wall thickening. 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 Spleen: Normal. No splenomegaly. Adrenal glands: Stable nodular appearance of the bilateral adrenal glands. Kidneys and ureters: Nonobstructive right nephrolithiasis. Stomach and bowel: [id number] colonic stool burden. Scattered colonic diverticulosis. Appendix: Hyperattenuating debris within the appendix, appendix without considerable inflammatory change. Intraperitoneal space: Unremarkable. No free air. No significant fluid collection. Vasculature: Pelvic phleboliths. Lymph nodes: Unremarkable. No enlarged lymph nodes. Urinary bladder: Unremarkable as visualized. Reproductive: Unremarkable as visualized. Bones/joints: Degenerative change of the visualized osseous structures. Soft tissues: Diffuse body wall edema. CT/[place] [id number] IMPRESSION: Nonspecific lung findings which can be seen in multifocal infection, CHF, correlate clinically. IMPRESSION: 1. Findings compatible with third-spacing of fluid. Correlate for underlying conditions such as CHF, renal failure. 2. Decompressed gallbladder with diffusely thickened khanna, differential include CHF/third-spacing of fluid, hepatic viral infection. Correlate clinically. Consider right upper quadrant ultrasound for further assessment.
--- NOTE | 2025-01-18 10:24 | P.PN_ITS ---
Subjective 2 Subjective: Sleeping, wakes up to voice. He has not noticed any outward bleeding, denies noticing red blood in stool or dark black stools. Has not seen blood in urine. However, he also mentions that his vision is poor and he may not be able to see blood. Vitals/I&O/Wt Last Vital Signs Temp 97.7 F 01/18/25 08:00 Pulse 66 01/18/25 08:11 Resp 16 01/18/25 08:11 BP 122/65 01/18/25 09:30 Pulse Ox 94 01/18/25 08:11 O2 Del Method Nasal Cannula 01/18/25 08:11 O2 Flow Rate 3 01/18/25 08:11 01/17/25 01/18/25 01/18/25 22:59 06:59 14:59 Intake Total 850 / 1330 240 / 240 Output Total 3104 / 3104 Balance -2254 / -1774 240 / 240 Weight last 48 hrs Weight 87.09 kg Weight 87.1 kg Weight 89.584 kg Weight 85.8 kg Physical Exam 2 Narrative: Sleeping, wakes up to voice. Const: COMMON NORMALS: patient oriented x3 and alert GENERAL APPEARANCE: c ooperative ORIENTATION/CONSCIOUSNESS: Yes awake HENMT: COMMON NORMALS: oropharynx normal Neck/C-Spine: COMMON NORMALS: no JVD Chest: OTHER: Right chest dialysis catheter. Resp: COMMON NORMALS: normal respiratory effort and clear to auscultation bilaterally AUSCULTATION: clear to auscultation bilaterally Cardio: COMMON NORMALS: no JVD, regular rhythm, S1 normal heart sound present, S2 normal heart sound present and No murmurs present (Cardio) RHYTHM: regular rhythm HEART SOUNDS: S1 normal heart sound present and S2 normal heart sound present GI: COMMON NORMALS: Normal to inspection, nondistended, normoactive bowel sounds present, Soft to palpation and non-tender PALPATION: Yes Soft to palpation Extremity: COMMON NORMALS: no joint enlargement GENERAL: Yes edema (Trace BLLE) Neuro: COMMON NORMALS: patient oriented x3 and moves all extremities S ENSORIUM/ORIENTATION: Yes alert Psych: ATTITUDE: Yes uncooperative and Yes evasive MOOD & AFFECT: Yes irritable and Yes Labile affect present Skin: COMMON NORMALS: no rashes or lesions noted GENERAL SKIN EXAM: no rashes or lesions noted Data 01/18/25 04:34 01/18/25 04:34 A&P Assessment and plan (1) End-stage renal disease (ESRD): Reviewed intake and output, reviewed chemistry, BUN, creatinine, potassium chronic, bicarb, phosphorus, magnesium, nephro provider note, discussed with nephro provider. Dialysis planned for tomorrow unless he becomes more short of breath, or signs of fluid overload with blood transfusion in which case may be advanced to today. Noted hemoglobin down to 6.5 this morning. 1 unit RBC has been requested. Monitor for risk of fluid overload, transfusion reaction. Discussed with nursing, shelter case manager. Case management continues to work on hemodialysis and follow-up after discharge. Reassess CBC later in the afternoon after transfusion, repeat chemistry. He declined for records from [facility]. (2) Acute on chronic anemia: Hemoglobin down to 6.5 this morning, down to severe acute on chronic anemia, yesterday 7.6, day prior to that 8.5. Recently has been fluctuating between 7 and 9.5. Discussed with nephrology. 1 unit RBC has been requested. Will repeat blood counts in the afternoon after transfusion. Requested Hemoccult. As per discussion with him also requesting additional workup with CT chest abdomen pelvis for any collection that may suggest new bleeding. Urine has been without hematuria. No reported blood in the stool. He reports poor vision. Iron studies reviewed. Prior B12, folic acid levels reviewed. TSH reviewed. (3) (HFpEF) heart failure with preserved ejection fraction: Reviewed intake and output, and negative balance. Decreasing/resolving lower extremity edema. He has been feeling better. Oxygenation stable, doing well on 3 L nasal cannula oxygen. Continue to monitor intake and output. Next hemodialysis tentatively planned for tomorrow unless needs to be done sooner. Continued arrangements for outpatient dialysis. Limited echo With mild LVH, per discussion with him we will benefit from continued good control of blood pressure, targeting 120/80. Blood pressures here are doing better. Currently 122/65 Fluid restriction 1000 mL. (4) Elevated troponin: Discussed with sanitor, as per review of troponin, patient condition, limited echocardiogram, as well as recent stress test, at this time patient to continue with current medications. Continue medical therapy. Metoprolol. Continue aspirin, statin, beta-coco. (5) Lack of social support: Lives alone. With limited vision. Has had some support from [facility], [place] construction administrator. Discussed with shelter case manager, appreciate consultation. Plan Bipolar disorder: Discussed with psychiatrist. Reviewed psychiatry note. Without signs of decompensated bipolar disorder. Having capacity to make decisions. No additional medication adjustment would be advisable at current time. DM2: Continue diabetic diet. Monitor POC glucose. SSI insulin. HTN: Monitor blood pressures. Continue Coreg. PDMP PDMP Reviewed: Not Reviewed Attestations 2 Medical Necessity Statement*: Continue admission for assessment management of acute congestive heart failure with acute renal failure, initiation of dialysis, acute on chronic anemia, post discharge planning and arrangements for continued hemodialysis and follow-up in a gentleman in a difficult social situation. Diagnoses End-stage renal disease (ESRD) N18.6 Acute on chronic anemia D64.9 (HFpEF) heart failure with preserved ejection fraction I50.30 Elevated troponin R79.89 Lack of social support Z65.8
--- NOTE | 2025-01-18 10:31 | P.PN_ITS ---
Subjective 2 Subjective: Surgical site clean dry intact Dialysis catheter working Vitals/I&O/Wt Last Vital Signs Temp 97.7 F 01/18/25 08:00 Pulse 66 01/18/25 08:11 Resp 16 01/18/25 08:11 BP 122/65 01/18/25 09:30 Pulse Ox 94 01/18/25 08:11 O2 Del Method Nasal Cannula 01/18/25 08:11 O2 Flow Rate 3 01/18/25 08:11 01/17/25 01/18/25 01/18/25 22:59 06:59 14:59 Intake Total 850 / 1330 240 / 240 Output Total 3104 / 3104 Balance -2254 / -1774 240 / 240 Weight last 48 hrs Weight 192 lb Weight 192 lb 0.362 oz Weight 197 lb 8 oz Weight 189 lb 2.506 oz Physical Exam 2 Narrative: Chest: Unlabored breathing room air. No lymphadenopathy. Incisions are well- healed. Surgical site. Clean dry intact Heart: Regular rate and rhythm. Abdomen: Soft, nontender, nondistended. No masses or lymphadenopathy. Data 01/18/25 04:34 01/18/25 04:34 A&P Assessment and plan (1) End-stage renal disease (ESRD): Plan 60-year-old male status post TDC placement. Surgical site looks good. Catheter functional. PDMP PDMP Reviewed: Not Reviewed Attestations 2 Medical Necessity Statement*: N/A Coding Level of Care Code 49860 Diagnoses End-stage renal disease (ESRD) N18.6 Time Spent (min) 30
--- NOTE | 2025-01-18 11:32 | PC.NURSE ---
pt educ on importance of adhering to his 1000ml fluid restriction to decrease the workload of his kidneys, pt also educ on risks of refusal to adhere to 1000ml fluid restriction. pt still refuses to adhere to the fluid restriction as ordered. pt educ on diet and restrictions. pt also edu on risks of not adhereing to diet. pt continues to refuse to adhere to diet pt is a diabetic and dialysis pt. pt requested , milk and packets of sugar, pt received requested items.
[2025-01-18] MEDS: ferric gluconate 125 MG in sodium chloride 0.9% (100 ml) 100 ML 110 MG IV (14:52)
[2025-01-18 16:23] LABS: Glucose Point of Care 161 mg/dL (70-110)
--- NOTE | 2025-01-18 16:30 | PM.PN ---
Subjective Subjective: Patient is complaining of generalized weakness/fatigue. His hemoglobin dropped to 86.5. Medications: Medication Review Details: Current Medications Acetaminophen (Acetaminophen 325 Mg Tablet) 650 mg PO Q6H PRN PRN Reason: Mild/Mod Pain Or Temp >/= 101 Albuterol Sulfate (Albuterol 2.5 Mg/3 Ml Neb) 2.5 mg INHALATION Q4H PRN PRN Reason: Shortness Of Breath Alprazolam (Alprazolam 0.5 Mg Tablet) 0.5 mg PO ONCE PRN PRN Reason: anxiety Aspirin (Aspirin 81 Mg Ec Tablet) 81 mg PO DAILY [facility] Last Admin: 01/18/25 09:30 Dose: 81 mg Atorvastatin Calcium (Atorvastatin 40 Mg Tablet) 80 mg PO QPM [facility] Last Admin: 01/17/25 17:19 Dose: Not Given Bupropion HCl (Bupropion Xl (24 Hr) 150 Mg Tablet) 150 mg PO DAILY [facility] Last Admin: 01/18/25 09:30 Dose: Not Given Camphor/Menthol/Phenol (Blistex Lip Oint 7 Gm Tube) 1 applic TOPICAL PRN PRN PRN Reason: DRYNESS Last Admin: 01/15/25 21:52 Dose: 1 applic Divalproex Sodium (Divalproex Dr 250 Mg Tablet) 250 mg PO 1900 [facility] Last Admin: 01/17/25 17:18 Dose: 250 mg Ezetimibe (Ezetimibe 10 Mg Tablet) 10 mg PO DAILY [facility] Last Admin: 01/18/25 09:31 Dose: 10 mg Ergocalciferol (Ergocalciferol (Vitamin D2) 50,000 Unit Capsule) 50,000 unit PO Q7D [facility] Last Admin: 01/16/25 13:32 Dose: 50,000 unit Fluconazole (Fluconazole 100 Mg Tablet) 200 mg PO DAILY [facility] Last Admin: 01/18/25 09:31 Dose: 200 mg Glucagon (Glucagon 1 Mg/Ml Kit 1 Ml) 1 mg IM ONCE PRN; Protocol PRN Reason: Adult Acute Hypoglycemia Nursing Prot. Heparin Sodium (Porcine) (Heparin 5,000 Unit/Ml Inj 1 Ml) 5,000 unit SUBCUT Q12H [facility] Last Admin: 01/18/25 12:07 Dose: Not Given Dextrose (D5w) 500 mls @ 0 mls/hr IV ONCE PRN; Protocol PRN Reason: Adult Acute Hypoglycemia Prot Dextrose (D10w) 125 mls @ 750 mls/hr IV PRN PRN; Protocol PRN Reason: Adult Acute Hypoglycemia Nursing Protocol Dextrose (D10w) 250 mls @ 1,000 mls/hr IV PRN PRN; Protocol PRN Reason: Adult Acute Hypoglycemia Nursing Protocol Ferric Sodium Gluconate 125 mg (/ Sodium Chloride) 110 mls @ 110 mls/hr IV Q24H [facility] Stop: 01/24/25 11:59 Last Admin: 01/18/25 14:52 Dose: 110 mls/hr Insulin Human Lispro (Insulin Lispro 100 Unit/1 Ml) 0 unit SUBCUT WM&BEDTIME [facility]; Protocol Last Admin: 01/18/25 12:33 Dose: Not Given Isosorbide Mononitrate (Isosorbide Mononitrate Er 30 Mg Tablet) 30 mg PO DAILY [facility] Last Admin: 01/18/25 09:32 Dose: 30 mg Losartan Potassium (Losartan 50 Mg Tablet) 25 mg PO DAILY [facility] Last Admin: 01/18/25 09:30 Dose: 25 mg Metoprolol Tartrate (Metoprolol Tartrate 50 Mg Tablet) 50 mg PO BID@0900,2100 [facility] Last Admin: 01/18/25 09:31 Dose: 50 mg Multivitamins (A-Owdyrbh-Iqqqzxr C Tablet) 1 each PO DAILY [facility] Last Admin: 01/18/25 09:31 Dose: 1 each Oxycodone/Acetaminophen (Oxycodone-Apap 5-325 Mg Tablet) 1 tab PO Q4H PRN PRN Reason: Severe Pain Pantoprazole Sodium (Pantoprazole Dr 40 Mg Tablet) 40 mg PO DAILY [facility] Last Admin: 01/18/25 09:31 Dose: 40 mg Sevelamer Carbonate (Sevelamer 800 Mg Tablet) 800 mg PO TIDAC [facility] Last Admin: 01/18/25 12:55 Dose: Not Given Sodium Chloride (Sodium Chloride 0.9% 100 Ml Bag) 50 ml IV PRN PRN PRN Reason: Blood transfusion prime and flush Stop: 01/19/25 06:08 Tamsulosin HCl (Tamsulosin 0.4 Mg Capsule) 0.4 mg PO DAILY [facility] Last Admin: 01/18/25 09:31 Dose: 0.4 mg Vitals/I&O/Wt Last Vital Signs Temp 98.1 F 01/18/25 13:54 Pulse 65 01/18/25 15:30 Resp 16 01/18/25 15:30 BP 109/55 01/18/25 15:30 Pulse Ox 93 01/18/25 15:30 O2 Del Method Nasal Cannula 01/18/25 15:30 O2 Flow Rate 3 01/18/25 08:11 01/18/25 01/18/25 01/18/25 06:59 14:59 22:59 Intake Total 830 / 830 Balance 830 / 830 Weight last 48 hrs Weight 192 lb Weight 192 lb 0.362 oz Weight 197 lb 8 oz Weight 189 lb 2.506 oz Physical Exam Narrative: GENERAL: The patient is alert and oriented times three. Not in any acute distress. HEENT: No significant pallor, icterus or lymphadenopathy.Oral cavity: There are no mucous membrane lesions. NECK: Trachea appears to be central. No masses noted. No JVD or thyromegaly appreciated. RESPIRATORY: Chest is symmetrical. No intercostals muscle retraction or any accessory muscle activation. There is no chest wall tenderness. Breath sounds are heard bilaterally. No rales or rhonchi heard. No evidence of any consolidation. BREASTS: Deferred. HEART: The heart sounds are normal. No S3 or S4. Short systolic murmur at the lower sternal border. No diastolic murmurs. No pericardial rub ABDOMEN: No vessel pulsations or distention. No tenderness. No organomegaly appreciated. Bowel sounds are normally heard. : Deferred. RECTAL: Deferred. LYMPHATIC: No lymphadenopathy noted in the neck. EXTREMITIES: 1-2+ edema both lower extremities. No cyanosis. Peripheral pulses are palpable and fairly good volume. MUSCULOSKELETAL: No acute joint deformities or swelling SKIN: There are no significant rashes or ecchymosis NEUROPSYCHIATRIC: The patient is alert and oriented x3. Appears to be in a good mood. No tremors or rigidity noted. Data 01/18/25 04:34 01/18/25 04:34 Other Labs: Laboratory Last Values WBC 12.15 10^3/uL (3.29-11.43) H 01/18/25 04:34 RBC 2.29 10^6/uL (3.85-5.65) L 01/18/25 04:34 Hgb 6.50 g/dL (11.27-16.99) L* 01/18/25 04:34 Hct 21.5 % (37-53) L 01/18/25 04:34 MCV 93.9 fl (82-101) 01/18/25 04:34 MCH 28.4 pg (27-33) 01/18/25 04:34 MCHC 30.2 g/dL (30-55) 01/18/25 04:34 RDW 13.8 % (12.1-15.1) 01/18/25 04:34 Plt Count 315 10^3/cmm (157-399) 01/18/25 04:34 MPV 10.6 fL (7.4-10.4) H 01/18/25 04:34 Neut % (Auto) 67.1 % 01/18/25 04:34 Lymph % (Auto) 15.3 % 01/18/25 04:34 Cottle % (Auto) 11.8 % 01/18/25 04:34 Eos % (Auto) 2.1 % 01/18/25 04:34 Baso % (Auto) 1.4 % 01/18/25 04:34 Neut # (Auto) 8.16 10^3/uL (1.8-7.7) H 01/18/25 04:34 Lymph # (Auto) 1.9 10^3/uL (0.8-4.8) 01/18/25 04:34 Cottle # (Auto) 1.4 10^3/uL (0.2-0.9) H 01/18/25 04:34 Eos # (Auto) 0.3 10^3/uL (0.0-0.8) 01/18/25 04:34 Baso # (Auto) 0.2 10^3/uL (0.0-0.1) H 01/18/25 04:34 Nucleated RBC % (auto) 0 % 01/18/25 04:34 Nucleated RBCs # 0.0 /100WBC 01/18/25 04:34 Sodium 134 mmol/L (136-145) L 01/18/25 04:34 Potassium 4.8 mmol/L (3.5-5.1) 01/18/25 04:34 Chloride 98 mmol/L (98-107) 01/18/25 04:34 Carbon Dioxide 25 mmol/L (22-29) 01/18/25 04:34 Anion Gap 15.8 (5-19) 01/18/25 04:34 BUN 58 mg/dL (6-20) H 01/18/25 04:34 Creatinine 6.2 mg/dL (0.7-1.2) H* 01/18/25 04:34 GFR Calculation 9.3 mL/min (90-130) L 01/18/25 04:34 Glucose 174 mg/dL (65-115) H 01/18/25 04:34 POC Glucose 161 mg/dL (70-110) H 01/18/25 16:17 Calculated Osmolality 298 mOsm/kg (285-295) H 01/18/25 04:34 Lactic Acid 0.8 mmol/L (0.5-2.2) 01/15/25 05:30 Uric Acid 10.0 mg/dL (3.4-7.0) H 01/15/25 05:30 Calcium 6.9 mg/dL (8.5-10.5) L 01/18/25 04:34 Phosphorus 4.5 mg/dL (2.5-4.5) 01/18/25 04:34 Magnesium 1.8 mg/dL (1.7-2.3) 01/18/25 04:34 Iron 40 ug/dL (59-158) L 01/16/25 03:41 TIBC 179 mcg/dl 01/16/25 03:41 % Saturation 22.3 % (20-50) 01/16/25 03:41 Unsat Iron Binding 139 ug/dL (112-347) 01/16/25 03:41 Ferritin 129 ng/mL (30-400) 01/16/25 03:41 Total Bilirubin 0.2 mg/dL (0.15-1.2) 01/18/25 04:34 AST 12 U/L (0-40) 01/18/25 04:34 ALT < 5 U/L (0-41) 01/18/25 04:34 Alkaline Phosphatase 75 U/L (40-130) 01/18/25 04:34 Troponin T Baseline 328 ng/L (0-15) H* 01/15/25 05:30 Troponin T 120 Minute 302.5 ng/L (0-15) H 01/15/25 07:42 Delta Troponin T -25.5 ABS# (0-10) L 01/15/25 07:42 Troponin T Hi Sens 6Hr 310.6 ng/L (0-15) H 01/15/25 11:30 Troponin T Hi Sens 6Hr Delta -17.4 ng/L (0-12) L 01/15/25 11:30 NT-Pro-B Natriuret Pep 82403 pg/mL (0-125) H 01/15/25 05:30 Total Protein 6.4 g/dL (6.6-8.7) L 01/18/25 04:34 Albumin 2.9 g/dL (3.5-5.2) L 01/18/25 04:34 Globulin 3.5 g/dL (1.3-4.6) 01/18/25 04:34 25-OH Vitamin D Total 6 ng/mL (30-100) L 01/16/25 03:41 Procalcitonin 0.55 ng/mL (0-0.5) H 01/15/25 05:30 PTH Intact 201.7 pg/mL (15-65) H 01/16/25 03:41 Calcium (PTH Intact) 7.3 mg/dL (8.5-10.5) L 01/16/25 03:41 Urine Color Yellow (Yellow) 01/15/25 17:25 Urine Appearance Clear (CLEAR) 01/15/25 17: Urine pH 5.0 (5-7) 01/15/25 17:25 Ur Specific Vega 1.013 (1.005-1.030) 01/15/25 17:25 Urine Protein 3+ (Negative) A 01/15/25 17:25 Urine Glucose (UA) Negative (Normal) 01/15/25 17:25 Urine Ketones Negative (Negative) 01/15/25 17:25 Urine Blood 1+ (Negative) A 01/15/25 17:25 Urine Nitrate Negative (Negative) 01/15/25 17:25 Urine Bilirubin Negative (Negative) 01/15/25 17:25 Urine Urobilinogen 0.2 mg/dL (Negative) 01/15/25 17:25 Ur Leukocyte Esterase Negative (Negative) 01/15/25 17:25 Urine RBC 0-2 /hpf (0-2) 01/15/25 17:25 Urine WBC 0-5 /hpf (0-5) 01/15/25 17:25 Ur Squamous Epith Cells 0-5 /hpf (0-5) 01/15/25 17:25 Amorphous Sediment 1+ /hpf 01/15/25 17:25 Urine Bacteria None seen /hpf (NONE) 01/15/25 17:25 Hyaline Casts 50.46 /lpf 01/15/25 17:25 Fine Granular Casts 0-4 /lpf H 01/15/25 17:25 Hep Bs Antigen Non-reactive (Nonreactive) 01/15/25 05:30 Hep Bs Antibody < 3.5 (11.5-1000) L 01/15/25 05:30 Hepatitis C Antibody Non-reactive (Nonreactive) 01/15/25 05:30 Influenza A (PCR) Negative (Negative) 01/15/25 05:30 Influenza Type B (PCR) Negative (Negative) 01/15/25 05:30 RSV (PCR) Negative (Negative) 01/15/25 05:30 SARS-CoV-2 (PCR) Negative (Negative) 01/15/25 05:30 Blood Type A Positive 01/18/25 06:23 Rho(D) Type Rh positive 01/18/25 06:23 Antibody Screen Negative 01/18/25 06:23 Crossmatch See Detail 01/18/25 06:23 A&P Assessment and plan (1) Acute on chronic diastolic (congestive) heart failure: The heart failure seems to be fairly compensated at this time. May continue on the dialysis as per the nephrology (2) Acute on chronic anemia: Etiology? Scheduled for blood transfusion today (3) Elevated troponin: This could be related to the chronic renal failure. Possibility of underlying coronary ischemia cannot be excluded. Apparently the patient never had any chest pain. We may consider doing an angiogram, once renal status Stabilized. (4) Hyperlipidemia: May continue on the current management. Qualifiers: Hyperlipidemia type: mixed hyperlipidemia Qualified Code(s): E78.2 - Mixed hyperlipidemia (5) Essential hypertension: The blood pressure is under control at this time. May continue on the current measures (6) Cannabis dependence, uncomplicated: Has not been taking cannabis for the last couple of weeks, as per patient (7) CKD (chronic kidney disease), stage V: Status post hemodialysis. Creatinine still remains elevated (8) Bipolar II disorder: Management as per the primary (9) Chronic hypoxic respiratory failure: The oxygenation seems to be improving and stable Plan Blood transfusion today cardiac status is stable. Continue on her current measures PDMP PDMP Reviewed: Not Reviewed Attestations Medical Necessity Statement*: Deferred to the primary Coding Level of Care Code 85739 Diagnoses Acute on chronic diastolic (congestive) heart failure I50.33 Acute on chronic anemia D64.9 Elevated troponin R79.89 Mixed hyperlipidemia E78.2 Hyperlipidemia type: mixed hyperlipidemia Essential hypertension I10 Cannabis dependence, uncomplicated F12.20 CKD (chronic kidney disease), stage V N18.5 Bipolar II disorder F31.81 Chronic hypoxic respiratory failure J96.11
[2025-01-18] MEDS: divalproex DR 250 mg Tablet PO (18:08)
[2025-01-18 18:17] LABS: Basophils # 0.2 10^3/uL (0.0-0.1); Basophils % 1.5 %; Eosinophils # 0.3 10^3/uL (0.0-0.8); Eosinophils % 2.5 %; Hematocrit 26.6 % (37-53); Lymphocytes # 1.7 10^3/uL (0.8-4.8); Lymphocytes % 15.1 %; Mean Corpuscular HGB Conc 31.6 g/dL (30-55); Mean Corpuscular Hemoglobin 28.9 pg (27-33); Mean Corpuscular Volume 91.4 fl (82-101); Monocytes # 1.2 10^3/uL (0.2-0.9); Monocytes % 10.1 %; Neutrophils # 7.78 10^3/uL (1.8-7.7); Neutrophils % 68.1 %; Nucleated Red Blood Cells % 0 %; Platelet Count 281 10^3/cmm (157-399); Red Blood Count 2.91 10^6/uL (3.85-5.65); Red Cell Distribution Width 13.9 % (12.1-15.1); White Blood Count 11.41 10^3/uL (3.29-11.43)
[2025-01-18 21:01] LABS: Glucose Point of Care 227 mg/dL (70-110)
[2025-01-18] MEDS: saline nasal spray 44mL Btl 1 SPRAY NASAL (21:21)
[2025-01-18] MEDS: heparin 5,000 unit/mL INJ 1 mL 5000 UNIT SUBCUT (22:19)
--- NOTE | 2025-01-18 23:59 | PC.NURSE ---
During the nurses midnight hourly rounding, the patient requested to speak to their nurse. Upon entering the room, the patient stated Can't you hearing me chocking . The nurse responded with I can hear you coughing and was going to come into the room during the rounding to check on the you The patient responded. There is a big fucking difference between choking and coughin and I was chocking. I am pissed right now, why can't I get any help around here The nurse acknowledged the patients feelings and stated that they are are sorry they feel that way. The nurse asked the patient if they would like the nurse to contact the doctor for some medication to help with the coughing and the patient denied. The patient requested a regular coke, their corn salsa from the fridge, turn their o2 up to 4 from 3.5 and a breathing treatment. The nurse educated the patient about their current diet and fluid restriction. The patient did not care and wanted the regular coke and corn salsa or they would get belligerent again with the nursing staff. The nurse obliged to the patient wishes even after reeducating them. The nurse listened to the patient lungs and they was diminished in the lower lobes. The patients current 02 stat was 95% on 3.5L via nasal canula before turning the oxygen up to 4L. RT was contacted about the patients wishes for a breathing treatment and is currently in the room with the patient. Will continue to monitor.
[2025-01-19] VITALS (11 sets, daily range): BP systolic 139–161; BP diastolic 71–81; PULSE 72–93; RESP 15–24; TEMP 36.4–36.8; O2SAT 89–99
[2025-01-19] MEDS: albuterol 2.5 mg/3 mL Neb INHALATION ×3 (00:06→21:52)
[2025-01-19 05:53] LABS: Basophils # 0.2 10^3/uL (0.0-0.1); Basophils % 1.5 %; Eosinophils # 0.2 10^3/uL (0.0-0.8); Hematocrit 25.3 % (37-53); Lymphocytes # 1.8 10^3/uL (0.8-4.8); Lymphocytes % 15.4 %; Mean Corpuscular HGB Conc 30.8 g/dL (30-55); Mean Corpuscular Hemoglobin 28.6 pg (27-33); Mean Corpuscular Volume 92.7 fl (82-101); Mean Platelet Volume 10.2 fL (7.4-10.4); Monocytes # 1.1 10^3/uL (0.2-0.9); Monocytes % 9.3 %; Neutrophils # 8.14 10^3/uL (1.8-7.7); Neutrophils % 69.4 %; Nucleated Red Blood Cells % 0 %; Platelet Count 267 10^3/cmm (157-399); Red Blood Count 2.73 10^6/uL (3.85-5.65); White Blood Count 11.73 10^3/uL (3.29-11.43)
[2025-01-19] MEDS: sevelamer 800 mg Tablet PO ×3 (05:58→20:56)
[2025-01-19 06:12] LABS: Alanine Aminotransferase < 5 U/L (0-41); Albumin Level 2.9 g/dL (3.5-5.2); Alkaline Phosphatase 100 U/L (40-130); Anion Gap 18.1 (5-19); Aspartate Amino Transferase 21 U/L (0-40); Blood Urea Nitrogen 62 mg/dL (6-20); Calcium 7.2 mg/dL (8.5-10.5); Carbon Dioxide 22 mmol/L (22-29); Chloride 97 mmol/L (98-107); Creatinine Clr Calc Pharmacy 13.7358; Globulin 3.7 g/dL (1.3-4.6); Glomerular Filtration Rate 9.2 mL/min (90-130); Glucose 89 mg/dL (65-115); Magnesium 1.8 mg/dL (1.7-2.3); Osmolality Calculated 291 mOsm/kg (285-295); Potassium 5.1 mmol/L (3.5-5.1); Sodium 132 mmol/L (136-145); Total Bilirubin 0.2 mg/dL (0.15-1.2); Total Protein 6.6 g/dL (6.6-8.7)
[2025-01-19 06:39] LABS: Glucose Point of Care 100 mg/dL (70-110)
--- NOTE | 2025-01-19 08:31 | P.PN_ITS ---
Subjective 2 Subjective: The patient is feeling better after the blood transfusion.. No chest pain or shortness of breath. The vitals are stable. Still has generalized weakness limiting his ambulation Medications: Medication Review Details: Current Medications Acetaminophen (Acetaminophen 325 Mg Tablet) 650 mg PO Q6H PRN PRN Reason: Mild/Mod Pain Or Temp >/= 101 Albuterol Sulfate (Albuterol 2.5 Mg/3 Ml Neb) 2.5 mg INHALATION Q4H PRN PRN Reason: Shortness Of Breath Last Admin: 01/19/25 00:06 Dose: 2.5 mg Alprazolam (Alprazolam 0.5 Mg Tablet) 0.5 mg PO ONCE PRN PRN Reason: anxiety Aspirin (Aspirin 81 Mg Ec Tablet) 81 mg PO DAILY [facility] Last Admin: 01/18/25 09:30 Dose: 81 mg Atorvastatin Calcium (Atorvastatin 40 Mg Tablet) 80 mg PO QPM [facility] Last Admin: 01/18/25 18:03 Dose: Not Given Bupropion HCl (Bupropion Xl (24 Hr) 150 Mg Tablet) 150 mg PO DAILY [facility] Last Admin: 01/18/25 09:30 Dose: Not Given Camphor/Menthol/Phenol (Blistex Lip Oint 7 Gm Tube) 1 applic TOPICAL PRN PRN PRN Reason: DRYNESS Last Admin: 01/15/25 21:52 Dose: 1 applic Divalproex Sodium (Divalproex Dr 250 Mg Tablet) 250 mg PO 1900 [facility] Last Admin: 01/18/25 18:08 Dose: 250 mg Ezetimibe (Ezetimibe 10 Mg Tablet) 10 mg PO DAILY [facility] Last Admin: 01/18/25 09:31 Dose: 10 mg Ergocalciferol (Ergocalciferol (Vitamin D2) 50,000 Unit Capsule) 50,000 unit PO Q7D [facility] Last Admin: 01/16/25 13:32 Dose: 50,000 unit Fluconazole (Fluconazole 100 Mg Tablet) 200 mg PO DAILY [facility] Last Admin: 01/18/25 09:31 Dose: 200 mg Glucagon (Glucagon 1 Mg/Ml Kit 1 Ml) 1 mg IM ONCE PRN; Protocol PRN Reason: Adult Acute Hypoglycemia Nursing Prot. Heparin Sodium (Porcine) (Heparin 5,000 Unit/Ml Inj 1 Ml) 5,000 unit SUBCUT Q12H [facility] Last Admin: 01/18/25 22:19 Dose: 5,000 unit Dextrose (D5w) 500 mls @ 0 mls/hr IV ONCE PRN; Protocol PRN Reason: Adult Acute Hypoglycemia Prot Dextrose (D10w) 125 mls @ 750 mls/hr IV PRN PRN; Protocol PRN Reason: Adult Acute Hypoglycemia Nursing Protocol Dextrose (D10w) 250 mls @ 1,000 mls/hr IV PRN PRN; Protocol PRN Reason: Adult Acute Hypoglycemia Nursing Protocol Ferric Sodium Gluconate 125 mg (/ Sodium Chloride) 110 mls @ 110 mls/hr IV Q24H [facility] Stop: 01/24/25 11:59 Last Infusion: 01/18/25 16:00 Dose: Infused Insulin Human Lispro (Insulin Lispro 100 Unit/1 Ml) 0 unit SUBCUT WM&BEDTIME [facility]; Protocol Last Admin: 01/19/25 07:22 Dose: Not Given Isosorbide Mononitrate (Isosorbide Mononitrate Er 30 Mg Tablet) 30 mg PO DAILY [facility] Last Admin: 01/18/25 09:32 Dose: 30 mg Losartan Potassium (Losartan 50 Mg Tablet) 25 mg PO DAILY [facility] Last Admin: 01/18/25 09:30 Dose: 25 mg Metoprolol Tartrate (Metoprolol Tartrate 50 Mg Tablet) 50 mg PO BID@0900,2100 [facility] Last Admin: 01/18/25 21:08 Dose: Not Given Multivitamins (S-Norejnf-Pyssfol C Tablet) 1 each PO DAILY [facility] Last Admin: 01/18/25 09:31 Dose: 1 each Oxycodone/Acetaminophen (Oxycodone-Apap 5-325 Mg Tablet) 1 tab PO Q4H PRN PRN Reason: Severe Pain Pantoprazole Sodium (Pantoprazole Dr 40 Mg Tablet) 40 mg PO DAILY [facility] Last Admin: 01/18/25 09:31 Dose: 40 mg Sevelamer Carbonate (Sevelamer 800 Mg Tablet) 800 mg PO TIDAC [facility] Last Admin: 01/19/25 05:58 Dose: 800 mg Sodium Chloride (Saline Nasal [place] 44ml Btl) 1 spray NASAL PRN PRN PRN Reason: DRYNESS Last Admin: 01/18/25 21:21 Dose: 1 spray Tamsulosin HCl (Tamsulosin 0.4 Mg Capsule) 0.4 mg PO DAILY [facility] Last Admin: 01/18/25 09:31 Dose: 0.4 mg Vitals/I&O/Wt Last Vital Signs Temp 97.5 F L 01/19/25 04:00 Pulse 76 01/19/25 04:00 Resp 17 01/19/25 04:00 BP 139/71 01/19/25 04:00 Pulse Ox 96 01/19/25 04:00 O2 Del Method Nasal Cannula 01/19/25 04:00 O2 Flow Rate 4 01/19/25 00:09 01/18/25 01/19/25 01/19/25 22:59 06:59 14:59 Intake Total 350 / 1180 Balance 350 / 1180 Weight last 48 hrs Weight 207 lb 12.8 oz Weight 192 lb Weight 192 lb 0.362 oz Physical Exam 2 Narrative: GENERAL: The patient is alert and oriented times three. Not in any acute distress. HEENT: No significant pallor, icterus or lymphadenopathy.Oral cavity: There are no mucous membrane lesions. NECK: Trachea appears to be central. No masses noted. No JVD or thyromegaly appreciated. RESPIRATORY: Chest is symmetrical. No intercostals muscle retraction or any accessory muscle activation. There is no chest wall tenderness. Breath sounds are heard bilaterally. No rales or rhonchi heard. No evidence of any consolidation. BREASTS: Deferred. HEART: The heart sounds are normal. No S3 or S4. Short systolic murmur at the lower sternal border. No diastolic murmurs. No pericardial rub ABDOMEN: No vessel pulsations or distention. No tenderness. No organomegaly appreciated. Bowel sounds are normally heard. : Deferred. RECTAL: Deferred. LYMPHATIC: No lymphadenopathy noted in the neck. EXTREMITIES: 1-2+ edema both lower extremities. No cyanosis. Peripheral pulses are palpable and fairly good volume. MUSCULOSKELETAL: No acute joint deformities or swelling SKIN: There are no significant rashes or ecchymosis NEUROPSYCHIATRIC: The patient is alert and oriented x3. Appears to be in a good mood. No tremors or rigidity noted. Data 01/20/25 04:55 01/20/25 04:55 Other Labs: Laboratory Last Values WBC 11.73 10^3/uL (3.29-11.43) H 01/19/25 05:15 RBC 2.73 10^6/uL (3.85-5.65) L 01/19/25 05:15 Hgb 7.80 g/dL (11.27-16.99) L 01/19/25 05:15 Hct 25.3 % (37-53) L 01/19/25 05:15 MCV 92.7 fl (82-101) 01/19/25 05:15 MCH 28.6 pg (27-33) 01/19/25 05:15 MCHC 30.8 g/dL (30-55) 01/19/25 05:15 RDW 14.0 % (12.1-15.1) 01/19/25 05:15 Plt Count 267 10^3/cmm (157-399) 01/19/25 05:15 MPV 10.2 fL (7.4-10.4) 01/19/25 05:15 Neut % (Auto) 69.4 % 01/19/25 05:15 Lymph % (Auto) 15.4 % 01/19/25 05:15 [place] % (Auto) 9.3 % 01/19/25 05:15 Eos % (Auto) 2.0 % 01/19/25 05:15 Baso % (Auto) 1.5 % 01/19/25 05:15 Neut # (Auto) 8.14 10^3/uL (1.8-7.7) H 01/19/25 05:15 Lymph # (Auto) 1.8 10^3/uL (0.8-4.8) 01/19/25 05:15 [place] # (Auto) 1.1 10^3/uL (0.2-0.9) H 01/19/25 05:15 Eos # (Auto) 0.2 10^3/uL (0.0-0.8) 01/19/25 05:15 Baso # (Auto) 0.2 10^3/uL (0.0-0.1) H 01/19/25 05:15 Nucleated RBC % (auto) 0 % 01/19/25 05:15 Nucleated RBCs # 0.0 /100WBC 01/19/25 05:15 Sodium 132 mmol/L (136-145) L 01/19/25 05:15 Potassium 5.1 mmol/L (3.5-5.1) 01/19/25 05:15 Chloride 97 mmol/L (98-107) L 01/19/25 05:15 Carbon Dioxide 22 mmol/L (22-29) 01/19/25 05:15 Anion Gap 18.1 (5-19) 01/19/25 05:15 BUN 62 mg/dL (6-20) H 01/19/25 05:15 Creatinine 6.3 mg/dL (0.7-1.2) H* 01/19/25 05:15 GFR Calculation 9.2 mL/min (90-130) L 01/19/25 05:15 Glucose 89 mg/dL (65-115) 01/19/25 05:15 POC Glucose 100 mg/dL (70-110) 01/19/25 06:36 Calculated Osmolality 291 mOsm/kg (285-295) 01/19/25 05:15 Lactic Acid 0.8 mmol/L (0.5-2.2) 01/15/25 05:30 Uric Acid 10.0 mg/dL (3.4-7.0) H 01/15/25 05:30 Calcium 7.2 mg/dL (8.5-10.5) L 01/19/25 05:15 Phosphorus 5.0 mg/dL (2.5-4.5) H 01/19/25 05:15 Magnesium 1.8 mg/dL (1.7-2.3) 01/19/25 05:15 Iron 40 ug/dL (59-158) L 01/16/25 03:41 TIBC 179 mcg/dl 01/16/25 03:41 % Saturation 22.3 % (20-50) 01/16/25 03:41 Unsat Iron Binding 139 ug/dL (112-347) 01/16/25 03:41 Ferritin 129 ng/mL (30-400) 01/16/25 03:41 Total Bilirubin 0.2 mg/dL (0.15-1.2) 01/19/25 05:15 AST 21 U/L (0-40) 01/19/25 05:15 ALT < 5 U/L (0-41) 01/19/25 05:15 Alkaline Phosphatase 100 U/L (40-130) 01/19/25 05:15 Troponin T Baseline 328 ng/L (0-15) H* 01/15/25 05:30 Troponin T 120 Minute 302.5 ng/L (0-15) H 01/15/25 07:42 Delta Troponin T -25.5 ABS# (0-10) L 01/15/25 07:42 Troponin T Hi Sens 6Hr 310.6 ng/L (0-15) H 01/15/25 11:30 Troponin T Hi Sens 6Hr Delta -17.4 ng/L (0-12) L 01/15/25 11:30 NT-Pro-B Natriuret Pep 77912 pg/mL (0-125) H 01/15/25 05:30 Total Protein 6.6 g/dL (6.6-8.7) 01/19/25 05:15 Albumin 2.9 g/dL (3.5-5.2) L 01/19/25 05:15 Globulin 3.7 g/dL (1.3-4.6) 01/19/25 05:15 25-OH Vitamin D Total 6 ng/mL (30-100) L 01/16/25 03:41 Procalcitonin 0.55 ng/mL (0-0.5) H 01/15/25 05:30 PTH Intact 201.7 pg/mL (15-65) H 01/16/25 03:41 Calcium (PTH Intact) 7.3 mg/dL (8.5-10.5) L 01/16/25 03:41 Urine Color Yellow (Yellow) 01/15/25 17:25 Urine Appearance Clear (CLEAR) 01/15/25 17:25 Urine pH 5.0 (5-7) 01/15/25 17:25 Ur Specific [place] 1.013 (1.005-1.030) 01/15/25 17:25 Urine Protein 3+ (Negative) A 01/15/25 17:25 Urine Glucose (UA) Negative (Normal) 01/15/25 17:25 Urine Ketones Negative (Negative) 01/15/25 17:25 Urine Blood 1+ (Negative) A 01/15/25 17:25 Urine Nitrate Negative (Negative) 01/15/25 17:25 Urine Bilirubin Negative (Negative) 01/15/25 17:25 Urine Urobilinogen 0.2 mg/dL (Negative) 01/15/25 17:25 Ur Leukocyte Esterase Negative (Negative) 01/15/25 17:25 Urine RBC 0-2 /hpf (0-2) 01/15/25 17:25 Urine WBC 0-5 /hpf (0-5) 01/15/25 17:25 Ur Squamous Epith Cells 0-5 /hpf (0-5) 01/15/25 17:25 Amorphous Sediment 1+ /hpf 01/15/25 17:25 Urine Bacteria None seen /hpf (NONE) 01/15/25 17:25 Hyaline Casts 50.46 /lpf 01/15/25 17:25 Fine Granular Casts 0-4 /lpf H 01/15/25 17:25 Hep Bs Antigen Non-reactive (Nonreactive) 01/15/25 05:30 Hep Bs Antibody < 3.5 (11.5-1000) L 01/15/25 05:30 Hepatitis C Antibody Non-reactive (Nonreactive) 01/15/25 05:30 Influenza A (PCR) Negative (Negative) 01/15/25 05:30 Influenza Type B (PCR) Negative (Negative) 01/15/25 05:30 RSV (PCR) Negative (Negative) 01/15/25 05:30 SARS-CoV-2 (PCR) Negative (Negative) 01/15/25 05:30 Blood Type A Positive 01/18/25 06:23 Rho(D) Type Rh positive 01/18/25 06:23 Antibody Screen Negative 01/18/25 06:23 Crossmatch See Detail 01/18/25 06:23 A&P Assessment and plan (1) Elevated troponin: This could be related to the chronic renal failure. Possibility of underlying coronary ischemia cannot be excluded. Apparently the patient never had any chest pain. We may consider doing an angiogram, once renal status Stabilized. (2) Acute on chronic diastolic (congestive) heart failure: The heart failure seems to be fairly compensated at this time. May continue on the dialysis as per the nephrology (3) Acute on chronic anemia: Hemoglobin seems to be improving after the transfusion (4) Hyperlipidemia: May continue on the current management. Qualifiers: Hyperlipidemia type: mixed hyperlipidemia Qualified Code(s): E78.2 - Mixed hyperlipidemia (5) Essential hypertension: The blood pressure is under control at this time. May continue on the current measures (6) Cannabis dependence, uncomplicated: Has not been taking cannabis for the last couple of weeks, as per patient (7) CKD (chronic kidney disease), stage V: Status post hemodialysis. Creatinine still remains elevated (8) Bipolar II disorder: Management as per the primary (9) Chronic hypoxic respiratory failure: The oxygenation seems to be improving and stable Plan Continue on the current measures. The overall cardiovascular status seems to be stable. PDMP PDMP Reviewed: Not Reviewed Attestations 2 Medical Necessity Statement*: Deferred to the primary Coding Level of Care Code 61329 Diagnoses Elevated troponin R79.89 Acute on chronic diastolic (congestive) heart failure I50.33 Acute on chronic anemia D64.9 Mixed hyperlipidemia E78.2 Hyperlipidemia type: mixed hyperlipidemia Essential hypertension I10 Cannabis dependence, uncomplicated F12.20 CKD (chronic kidney disease), stage V N18.5 Bipolar II disorder F31.81 Chronic hypoxic respiratory failure J96.11
[2025-01-19] MEDS: tamsulosin 0.4 mg Capsule PO (09:29)
[2025-01-19] MEDS: fluconazole 100 mg Tablet 200 MG PO (09:29)
[2025-01-19] MEDS: ezetimibe 10 mg Tablet PO (09:29)
[2025-01-19] MEDS: pantoprazole DR 40 mg Tablet PO (09:29)
[2025-01-19] MEDS: aspirin 81 mg EC Tablet PO (09:29)
[2025-01-19] MEDS: losartan 50 mg Tablet 25 MG PO (09:29)
[2025-01-19] MEDS: b-complex-vitamin c Tablet 1 EACH PO (09:29)
[2025-01-19] MEDS: isosorbide mononitrate ER 30 mg Tablet PO (09:29)
[2025-01-19] MEDS: metoprolol tartrate 50 mg Tablet PO ×2 (09:32→20:56)
[2025-01-19 12:40] LABS: Glucose Point of Care 125 mg/dL (70-110)
[2025-01-19] MEDS: ferric gluconate 125 MG in sodium chloride 0.9% (100 ml) 100 ML 110 MG IV (15:07)
[2025-01-19] MEDS: heparin 5,000 unit/mL INJ 1 mL 5000 UNIT SUBCUT (15:08)
[2025-01-19 16:39] LABS: Glucose Point of Care 213 mg/dL (70-110)
--- NOTE | 2025-01-19 17:40 | PM.PN ---
Subjective Subjective: No acute interim events. Hemoglobin at 7.8 today. Medications: Reviewed: Yes Medication Review Details: Current Medications Acetaminophen (Acetaminophen 325 Mg Tablet) 650 mg PO Q6H PRN PRN Reason: Mild/Mod Pain Or Temp >/= 101 Albuterol Sulfate (Albuterol 2.5 Mg/3 Ml Neb) 2.5 mg INHALATION Q4H PRN PRN Reason: Shortness Of Breath Last Admin: 01/19/25 00:06 Dose: 2.5 mg Alprazolam (Alprazolam 0.5 Mg Tablet) 0.5 mg PO ONCE PRN PRN Reason: anxiety Aspirin (Aspirin 81 Mg Ec Tablet) 81 mg PO DAILY [facility] Last Admin: 01/18/25 09:30 Dose: 81 mg Atorvastatin Calcium (Atorvastatin 40 Mg Tablet) 80 mg PO QPM [facility] Last Admin: 01/18/25 18:03 Dose: Not Given Bupropion HCl (Bupropion Xl (24 Hr) 150 Mg Tablet) 150 mg PO DAILY [facility] Last Admin: 01/18/25 09:30 Dose: Not Given Camphor/Menthol/Phenol (Blistex Lip Oint 7 Gm Tube) 1 applic TOPICAL PRN PRN PRN Reason: DRYNESS Last Admin: 01/15/25 21:52 Dose: 1 applic Divalproex Sodium (Divalproex Dr 250 Mg Tablet) 250 mg PO 1900 [facility] Last Admin: 01/18/25 18:08 Dose: 250 mg Ezetimibe (Ezetimibe 10 Mg Tablet) 10 mg PO DAILY [facility] Last Admin: 01/18/25 09:31 Dose: 10 mg Ergocalciferol (Ergocalciferol (Vitamin D2) 50,000 Unit Capsule) 50,000 unit PO Q7D [facility] Last Admin: 01/16/25 13:32 Dose: 50,000 unit Fluconazole (Fluconazole 100 Mg Tablet) 200 mg PO DAILY [facility] Last Admin: 01/18/25 09:31 Dose: 200 mg Glucagon (Glucagon 1 Mg/Ml Kit 1 Ml) 1 mg IM ONCE PRN; Protocol PRN Reason: Adult Acute Hypoglycemia Nursing Prot. Heparin Sodium (Porcine) (Heparin 5,000 Unit/Ml Inj 1 Ml) 5,000 unit SUBCUT Q12H [facility] Last Admin: 01/18/25 22:19 Dose: 5,000 unit Dextrose (D5w) 500 mls @ 0 mls/hr IV ONCE PRN; Protocol PRN Reason: Adult Acute Hypoglycemia Prot Dextrose (D10w) 125 mls @ 750 mls/hr IV PRN PRN; Protocol PRN Reason: Adult Acute Hypoglycemia Nursing Protocol Dextrose (D10w) 250 mls @ 1,000 mls/hr IV PRN PRN; Protocol PRN Reason: Adult Acute Hypoglycemia Nursing Protocol Ferric Sodium Gluconate 125 mg (/ Sodium Chloride) 110 mls @ 110 mls/hr IV Q24H [facility] Stop: 01/24/25 11:59 Last Infusion: 01/18/25 16:00 Dose: Infused Insulin Human Lispro (Insulin Lispro 100 Unit/1 Ml) 0 unit SUBCUT WM&BEDTIME [facility]; Protocol Last Admin: 01/19/25 07:22 Dose: Not Given Isosorbide Mononitrate (Isosorbide Mononitrate Er 30 Mg Tablet) 30 mg PO DAILY [facility] Last Admin: 01/18/25 09:32 Dose: 30 mg Losartan Potassium (Losartan 50 Mg Tablet) 25 mg PO DAILY [facility] Last Admin: 01/18/25 09:30 Dose: 25 mg Metoprolol Tartrate (Metoprolol Tartrate 50 Mg Tablet) 50 mg PO BID@0900,2100 [facility] Last Admin: 01/18/25 21:08 Dose: Not Given Multivitamins (J-Adnehco-Zqjkguq C Tablet) 1 each PO DAILY [facility] Last Admin: 01/18/25 09:31 Dose: 1 each Oxycodone/Acetaminophen (Oxycodone-Apap 5-325 Mg Tablet) 1 tab PO Q4H PRN PRN Reason: Severe Pain Pantoprazole Sodium (Pantoprazole Dr 40 Mg Tablet) 40 mg PO DAILY [facility] Last Admin: 01/18/25 09:31 Dose: 40 mg Sevelamer Carbonate (Sevelamer 800 Mg Tablet) 800 mg PO TIDAC [facility] Last Admin: 01/19/25 05:58 Dose: 800 mg Sodium Chloride (Saline Nasal [place] 44ml Btl) 1 spray NASAL PRN PRN PRN Reason: DRYNESS Last Admin: 01/18/25 21:21 Dose: 1 spray Tamsulosin HCl (Tamsulosin 0.4 Mg Capsule) 0.4 mg PO DAILY [facility] Last Admin: 01/18/25 09:31 Dose: 0.4 mg Vitals/I&O/Wt Last Vital Signs Temp 97.7 F 01/19/25 15:35 Pulse 84 01/19/25 15:35 Resp 18 01/19/25 15:35 BP 140/75 01/19/25 15:35 Pulse Ox 99 01/19/25 10:00 O2 Del Method Nasal Cannula 01/19/25 10:00 O2 Flow Rate 4 01/19/25 10:00 01/19/25 01/19/25 01/19/25 06:59 14:59 22:59 Intake Total 120 / 120 610 / 730 Output Total 1989 Balance 120 / 120 -1380 / -1260 Weight last 48 hrs Weight 92.3 kg Weight 94.256 kg Weight 87.09 kg Data 01/19/25 05:15 01/19/25 05:15 A&P Assessment and plan (1) End-stage renal disease (ESRD): Reviewed intake and output, reviewed chemistry, BUN, creatinine, potassium chronic, bicarb, phosphorus, magnesium, nephro provider note, discussed with nephro provider. Dialysis planned for tomorrow unless he becomes more short of breath, or signs of fluid overload with blood transfusion in which case may be advanced to today. Noted hemoglobin down to 6.5 this morning. 1 unit RBC has been requested. Monitor for risk of fluid overload, transfusion reaction. Discussed with nursing, manager case. Case management continues to work on hemodialysis and follow-up after discharge. Reassess CBC later in the afternoon after transfusion, repeat chemistry. He declined for records from [facility]. (2) Acute on chronic anemia: Hemoglobin down to 6.5 this morning, down to severe acute on chronic anemia, yesterday 7.6, day prior to that 8.5. Recently has been fluctuating between 7 and 9.5. Discussed with nephrology. 1 unit RBC has been requested. Will repeat blood counts in the afternoon after transfusion. Requested Hemoccult. As per discussion with him also requesting additional workup with CT chest abdomen pelvis for any collection that may suggest new bleeding. Urine has been without hematuria. No reported blood in the stool. He reports poor vision. Iron studies reviewed. Prior B12, folic acid levels reviewed. TSH reviewed. (3) (HFpEF) heart failure with preserved ejection fraction: Reviewed intake and output, and negative balance. Decreasing/resolving lower extremity edema. He has been feeling better. Oxygenation stable, doing well on 3 L nasal cannula oxygen. Continue to monitor intake and output. Next hemodialysis tentatively planned for tomorrow unless needs to be done sooner. Continued arrangements for outpatient dialysis. Limited echo With mild LVH, per discussion with him we will benefit from continued good control of blood pressure, targeting 120/80. Blood pressures here are doing better. Currently 122/65 Fluid restriction 1000 mL. (4) Elevated troponin: Discussed with safety consultant, as per review of troponin, patient condition, limited echocardiogram, as well as recent stress test, at this time patient to continue with current medications. Continue medical therapy. Metoprolol. Continue aspirin, statin, beta-coco. (5) Lack of social support: Lives alone. With limited vision. Has had some support from [facility] manugrapher. Discussed with manager case, appreciate consultation. Plan Bipolar disorder: Discussed with psychiatrist. Reviewed psychiatry note. Without signs of decompensated bipolar disorder. Having capacity to make decisions. No additional medication adjustment would be advisable at current time. DM2: Continue diabetic diet. Monitor POC glucose. SSI insulin. HTN: Monitor blood pressures. Continue Coreg. January 19, 2025 No new complaints today. Hemoglobin at 7.8. CT of the abdomen and pelvis without any obvious bleeding. Hemoccult is pending. Unfortunately patient had 1 bowel movement however he flushed it prior to specimen being collected. Encouraged to inform his nurse He has a bowel movement so we can send a specimen for FOBT. PDMP PDMP Reviewed: Not Reviewed Attestations Medical Necessity Statement*: Continued ongoing disposition planning. Coding Level of Care Code Acute Code for Chg Fwd Diagnoses End-stage renal disease (ESRD) N18.6 Acute on chronic anemia D64.9 (HFpEF) heart failure with preserved ejection fraction I50.30 Elevated troponin R79.89 Lack of social support Z65.8
--- NOTE | 2025-01-19 18:49 | PC.NURSE ---
pt recieved dinner tray, had a biscuit with chicken and veggies covering it. Pt requested additional biscuit, this rn called dietary and they were unable to bring him an additional biscuit. informed pt of this and he became very belligerent. pt screamed at rn, pt stated why can't you all do anything i ask? pt then proceeded to berate and yell about not getting his biscuit. offered him a sandwich, he screamed, i don't want a fucking sandwich! i asked for a dinner roll with butter. pt then stated, you can take my fucking vitals and that will be that last thing you do for me! I am calling the fine arts packer on you all.
--- NOTE | 2025-01-19 19:13 | P.PN_ITS ---
Subjective 2 Subjective: no new c/o Medications: Reviewed: Yes Vitals/I&O/Wt Last Vital Signs Temp 97.6 F 01/19/25 16:00 Pulse 93 01/19/25 18:35 Resp 24 H 01/19/25 18:35 BP 157/78 01/19/25 16:00 Pulse Ox 89 L 01/19/25 18:35 O2 Del Method Nasal Cannula 01/19/25 18:35 O2 Flow Rate 5 01/19/25 18:35 01/19/25 01/19/25 01/19/25 06:59 14:59 22:59 Intake Total 120 / 120 850 / 970 Output Total 1989 Balance 120 / 120 -1140 / -1020 Weight last 48 hrs Weight 92.3 kg Weight 94.256 kg Weight 87.09 kg Physical Exam 2 Narrative: he is sitting up in bed no apparent distress using nasal cannula oxygen. Vital signs noted. HEENT normocephalic atraumatic. Neck is supple no JVP. Rt IJ PC Lungs- improved air movement b/l Heart regular positive S1-S2. Abdomen is soft positive bowel sounds. Extremities decreased bilateral edema scrotal edema. Neuro awake alert oriented x 3 and no asterixis Data 01/19/25 05:15 01/19/25 05:15 A&P Assessment and plan (1) End-stage renal disease (ESRD): now HD dependent Plan 59-year-old gentleman with diabetes obesity hypertension grade 2 out of 4 diastolic dysfunction progressive renal insufficiency with renal biopsy showing recent ATN and diabetic nephrosclerosis. 1. ESRD-the patient has progressed to end-stage renal disease. The patient initiated hemodialysis on 01-16 and had SUF yesterday, HD today -Please use furosemide on non dialysis days. 2. Anemia- iron sat of 22%, ferritin of 129. Will give IV iron he received Epogen. 3. Renal bone mineral metabolism Phosphorus is improving. PTH is 201. Vitamin D is undetectable. Start vitamin D replacement. 4. Blood pressure now low to normal. as anemic- will decrese meds 5. Elevated BNP due to combination of acute on chronic heart failure with preserved EF exacerbation and from diabetic nephrosclerosis progressing to ESRD. The plan was discussed in detail with the patient and his behavioral health institutional nutrition consultant. Appreciate psychiatry evaluation. The patient was seen and examined with the aid of a nurse using audiovisual equipment. The patient consents to telehealth and to hemodialysis and will attempt to behave appropriately on dialysis. PDMP PDMP Reviewed: Not Reviewed Attestations 2 Medical Necessity Statement*: per mediioanane team Coding Level of Care Code Acute Code for Chg Fwd Diagnoses End-stage renal disease (ESRD) N18.6
[2025-01-19 20:42] LABS: Glucose Point of Care 229 mg/dL (70-110)
[2025-01-19] MEDS: insulin lispro 100 unit/1 mL SUBCUT (20:57)
[2025-01-20] VITALS (11 sets, daily range): BP systolic 113–174; BP diastolic 67–93; PULSE 64–85; RESP 16–20; TEMP 36.5–36.8; O2SAT 82–97
[2025-01-20] MEDS: guaiFENesin 100 mg/5 mL UDC 10 mL 200 MG PO ×2 (00:48→19:49)
[2025-01-20] MEDS: albuterol 2.5 mg/3 mL Neb INHALATION ×4 (02:11→20:38)
--- NOTE | 2025-01-20 02:39 | PC.NURSE ---
The patient is not as agitated as they was during the day per the patient. Patient still complains about difficulty breathing and their nasal canula was changed to a high flow nasal canula and has been watching the clock for their PRN breathing treatments. The patient started coughing and upon auscultation sounded slightly congested and requested a expectorant. PRN Robitussin 200mg q4h PRN was ordered and patient has received one dose so far. Floor nurse and RT spoke with each other about the patients respiratory status and their weight gain even though the patient has been on dialysis but refusing to adhere to their 1,000ml fluid restriction and current prescribed diet even after reeducation from nursing staff. Patient will be reweighed this AM. Will continue to monitor.
[2025-01-20 05:54] LABS: Basophils # 0.2 10^3/uL (0.0-0.1); Basophils % 1.1 %; Eosinophils # 0.2 10^3/uL (0.0-0.8); Eosinophils % 1.4 %; Hematocrit 27.4 % (37-53); Lymphocytes # 1.4 10^3/uL (0.8-4.8); Lymphocytes % 10.3 %; Mean Corpuscular HGB Conc 31.4 g/dL (30-55); Mean Corpuscular Hemoglobin 29.4 pg (27-33); Mean Corpuscular Volume 93.5 fl (82-101); Mean Platelet Volume 10.1 fL (7.4-10.4); Monocytes # 1.2 10^3/uL (0.2-0.9); Monocytes % 9.1 %; Neutrophils # 10.14 10^3/uL (1.8-7.7); Neutrophils % 75.9 %; Nucleated Red Blood Cells % 0.1 %; Platelet Count 315 10^3/cmm (157-399); Red Blood Count 2.93 10^6/uL (3.85-5.65); Red Cell Distribution Width 14.1 % (12.1-15.1); White Blood Count 13.36 10^3/uL (3.29-11.43)
[2025-01-20] MEDS: sevelamer 800 mg Tablet PO ×3 (05:58→17:32)
[2025-01-20 06:07] LABS: Alanine Aminotransferase 7 U/L (0-41); Albumin Level 3.2 g/dL (3.5-5.2); Alkaline Phosphatase 116 U/L (40-130); Anion Gap 15.6 (5-19); Aspartate Amino Transferase 25 U/L (0-40); Blood Urea Nitrogen 39 mg/dL (6-20); Calcium 7.8 mg/dL (8.5-10.5); Carbon Dioxide 26 mmol/L (22-29); Chloride 100 mmol/L (98-107); Creatinine Clr Calc Pharmacy 20.5318; Globulin 3.9 g/dL (1.3-4.6); Glomerular Filtration Rate 15.1 mL/min (90-130); Glucose 93 mg/dL (65-115); Magnesium 1.8 mg/dL (1.7-2.3); Osmolality Calculated 293 mOsm/kg (285-295); Phosphorus 3.8 mg/dL (2.5-4.5); Potassium 4.6 mmol/L (3.5-5.1); Sodium 137 mmol/L (136-145); Total Bilirubin 0.2 mg/dL (0.15-1.2); Total Protein 7.1 g/dL (6.6-8.7)
[2025-01-20 06:50] LABS: Glucose Point of Care 98 mg/dL (70-110)
[2025-01-20] MEDS: pantoprazole DR 40 mg Tablet PO (07:59)
[2025-01-20] MEDS: b-complex-vitamin c Tablet 1 EACH PO (07:59)
[2025-01-20] MEDS: tamsulosin 0.4 mg Capsule PO (07:59)
[2025-01-20] MEDS: ezetimibe 10 mg Tablet PO (07:59)
[2025-01-20] MEDS: fluconazole 100 mg Tablet 200 MG PO (07:59)
[2025-01-20] MEDS: losartan 50 mg Tablet 25 MG PO (07:59)
[2025-01-20] MEDS: isosorbide mononitrate ER 30 mg Tablet PO (08:00)
[2025-01-20] MEDS: pantoprazole 40 mg SDV IVP ×2 (08:00→17:33)
[2025-01-20] MEDS: metoprolol tartrate 50 mg Tablet PO ×2 (08:05→21:04)
[2025-01-20] MEDS: ferric gluconate 125 MG in sodium chloride 0.9% (100 ml) 100 ML 110 MG IV (11:13)
[2025-01-20] MEDS: insulin lispro 100 unit/1 mL SUBCUT ×2 (11:26→17:32)
[2025-01-20 11:36] LABS: Glucose Point of Care 213 mg/dL (70-110)
--- NOTE | 2025-01-20 12:43 | P.PN_ITS ---
Subjective 2 Subjective: no new c/o Medications: Reviewed: Yes Vitals/I&O/Wt Last Vital Signs Temp 98.0 F 01/20/25 12:00 Pulse 83 01/20/25 12:00 Resp 19 H 01/20/25 12:00 BP 174/85 01/20/25 12:00 Pulse Ox 90 01/20/25 12:00 O2 Del Method Nasal Cannula 01/20/25 12:00 O2 Flow Rate 6 01/20/25 11:02 01/19/25 01/20/25 01/20/25 22:59 06:59 14:59 Intake Total 850 / 970 950 / 950 Output Total 1989 180 / 2170 Balance -1140 / -1020 -180 / -1200 950 / 950 Weight last 48 hrs Weight 89.086 kg Weight 89.222 kg Weight 92.3 kg Weight 94.256 kg Physical Exam 2 Narrative: he is sitting up in bed no apparent distress using nasal cannula oxygen. Vital signs noted. HEENT normocephalic atraumatic. Neck is supple no JVP. Rt IJ PC Lungs- improved air movement b/l Heart regular positive S1-S2. Abdomen is soft positive bowel sounds. Extremities decreased bilateral edema scrotal edema. Neuro awake alert oriented x 3 and no asterixis Data 01/21/25 07:51 01/21/25 07:51 Micro: Microbiology 01/15/25 05:30 Blood Culture - Final Blood NO GROWTH AFTER 5 DAYS 01/15/25 05:30 Blood Culture - Final Blood NO GROWTH AFTER 5 DAYS 01/19/25 20:45 Occult Blood (FIT) - Final Stool Routine Collection A&P Assessment and plan (1) End-stage renal disease (ESRD): now HD dependent Plan 59-year-old gentleman with diabetes obesity hypertension grade 2 out of 4 diastolic dysfunction progressive renal insufficiency with renal biopsy showing recent ATN and diabetic nephrosclerosis. 1. ESRD-the patient has progressed to end-stage renal disease. The patient initiated hemodialysis on 01-16 and s/p HD yesterday -Please use furosemide on non dialysis days. 2. Anemia- iron sat of 22%, ferritin of 129. Will give IV iron he received Epogen. 3. Renal bone mineral metabolism Phosphorus is improving. PTH is 201. Vitamin D is undetectable. Start vitamin D replacement. 4. Blood pressure now low to normal. as anemic- will decrese meds 5. Elevated BNP due to combination of acute on chronic heart failure with preserved EF exacerbation and from diabetic nephrosclerosis progressing to ESRD. The plan was discussed in detail with the patient and his behavioral health organizational development consultant. Appreciate psychiatry evaluation. The patient was seen and examined with the aid of a nurse using audiovisual equipment. The patient consents to telehealth and to hemodialysis and will attempt to behave appropriately on dialysis. PDMP PDMP Reviewed: Not Reviewed Attestations 2 Medical Necessity Statement*: per albaro Coding Level of Care Code Acute Code for Chg Fwd Diagnoses End-stage renal disease (ESRD) N18.6
--- NOTE | 2025-01-20 14:46 | PC.NURSE ---
RN rounds with Dr. Medina on Mr. Baker. She educates him on occult blood and possible treatment plans. He calls Dr. Medina a rude bitch as she walks out of the room.
--- NOTE | 2025-01-20 16:03 | P.PN_ITS ---
Subjective 2 Subjective: No hematochezia/melena Vitals/I&O/Wt Last Vital Signs Temp 98.0 F 01/20/25 12:00 Pulse 85 01/20/25 14:47 Resp 18 01/20/25 14:47 BP 174/85 01/20/25 12:00 Pulse Ox 93 01/20/25 14:47 O2 Del Method High Flow Nasal Cannula 01/20/25 14:47 O2 Flow Rate 6 01/20/25 14:47 01/20/25 01/20/25 01/20/25 06:59 14:59 22:59 Intake Total 950 / 950 Output Total 180 / 2170 Balance -180 / -1200 950 / 950 Weight last 48 hrs Weight 196 lb 6.4 oz Weight 196 lb 11.2 oz Weight 203 lb 7.787 oz Weight 207 lb 12.8 oz Physical Exam 2 Narrative: rrr unlabored breathing ra abomen soft, nt, nd Data 01/20/25 04:55 01/20/25 04:55 Micro: Microbiology 01/15/25 05:30 Blood Culture - Final Blood NO GROWTH AFTER 5 DAYS 01/15/25 05:30 Blood Culture - Final Blood NO GROWTH AFTER 5 DAYS 01/19/25 20:45 Occult Blood (FIT) - Final Stool Routine Collection A&P Assessment and plan (1) Acute on chronic anemia: Plan 60 yo male s/p TDC for dialysis access. Doing well from that perspective. Hospitalist called about acute on chronic anemia. No clinical evidence of GIB. Can consider EGD/colnoscopy - will discuss with hospitalist in AM. PDMP PDMP Reviewed: Not Reviewed Attestations 2 Medical Necessity Statement*: NA Coding Level of Care Code 88983 Diagnoses Acute on chronic anemia D64.9 Time Spent (min) 30
[2025-01-20 16:45] LABS: Glucose Point of Care 264 mg/dL (70-110)
[2025-01-20] MEDS: divalproex DR 250 mg Tablet PO (18:34)
--- NOTE | 2025-01-20 18:38 | P.PN_ITS ---
Subjective 2 Subjective: patient was refusing medications in the morning as he was upset about the food being provided. Hemoccult + Medications: Reviewed: Yes Medication Review Details: Current Medications Acetaminophen (Acetaminophen 325 Mg Tablet) 650 mg PO Q6H PRN PRN Reason: Mild/Mod Pain Or Temp >/= 101 Albuterol Sulfate (Albuterol 2.5 Mg/3 Ml Neb) 2.5 mg INHALATION Q4H PRN PRN Reason: Shortness Of Breath Last Admin: 01/19/25 00:06 Dose: 2.5 mg Alprazolam (Alprazolam 0.5 Mg Tablet) 0.5 mg PO ONCE PRN PRN Reason: anxiety Aspirin (Aspirin 81 Mg Ec Tablet) 81 mg PO DAILY [facility] Last Admin: 01/18/25 09:30 Dose: 81 mg Atorvastatin Calcium (Atorvastatin 40 Mg Tablet) 80 mg PO QPM [facility] Last Admin: 01/18/25 18:03 Dose: Not Given Bupropion HCl (Bupropion Xl (24 Hr) 150 Mg Tablet) 150 mg PO DAILY [facility] Last Admin: 01/18/25 09:30 Dose: Not Given Camphor/Menthol/Phenol (Blistex Lip Oint 7 Gm Tube) 1 applic TOPICAL PRN PRN PRN Reason: DRYNESS Last Admin: 01/15/25 21:52 Dose: 1 applic Divalproex Sodium (Divalproex Dr 250 Mg Tablet) 250 mg PO 1900 [facility] Last Admin: 01/18/25 18:08 Dose: 250 mg Ezetimibe (Ezetimibe 10 Mg Tablet) 10 mg PO DAILY [facility] Last Admin: 01/18/25 09:31 Dose: 10 mg Ergocalciferol (Ergocalciferol (Vitamin D2) 50,000 Unit Capsule) 50,000 unit PO Q7D [facility] Last Admin: 01/16/25 13:32 Dose: 50,000 unit Fluconazole (Fluconazole 100 Mg Tablet) 200 mg PO DAILY [facility] Last Admin: 01/18/25 09:31 Dose: 200 mg Glucagon (Glucagon 1 Mg/Ml Kit 1 Ml) 1 mg IM ONCE PRN; Protocol PRN Reason: Adult Acute Hypoglycemia Nursing Prot. Heparin Sodium (Porcine) (Heparin 5,000 Unit/Ml Inj 1 Ml) 5,000 unit SUBCUT Q12H [facility] Last Admin: 01/18/25 22:19 Dose: 5,000 unit Dextrose (D5w) 500 mls @ 0 mls/hr IV ONCE PRN; Protocol PRN Reason: Adult Acute Hypoglycemia Prot Dextrose (D10w) 125 mls @ 750 mls/hr IV PRN PRN; Protocol PRN Reason: Adult Acute Hypoglycemia Nursing Protocol Dextrose (D10w) 250 mls @ 1,000 mls/hr IV PRN PRN; Protocol PRN Reason: Adult Acute Hypoglycemia Nursing Protocol Ferric Sodium Gluconate 125 mg (/ Sodium Chloride) 110 mls @ 110 mls/hr IV Q24H [facility] Stop: 01/24/25 11:59 Last Infusion: 01/18/25 16:00 Dose: Infused Insulin Human Lispro (Insulin Lispro 100 Unit/1 Ml) 0 unit SUBCUT WM&BEDTIME [facility]; Protocol Last Admin: 01/19/25 07:22 Dose: Not Given Isosorbide Mononitrate (Isosorbide Mononitrate Er 30 Mg Tablet) 30 mg PO DAILY [facility] Last Admin: 01/18/25 09:32 Dose: 30 mg Losartan Potassium (Losartan 50 Mg Tablet) 25 mg PO DAILY [facility] Last Admin: 01/18/25 09:30 Dose: 25 mg Metoprolol Tartrate (Metoprolol Tartrate 50 Mg Tablet) 50 mg PO BID@0900,2100 [facility] Last Admin: 01/18/25 21:08 Dose: Not Given Multivitamins (J-Tqjzzjd-Enmlenq C Tablet) 1 each PO DAILY [facility] Last Admin: 01/18/25 09:31 Dose: 1 each Oxycodone/Acetaminophen (Oxycodone-Apap 5-325 Mg Tablet) 1 tab PO Q4H PRN PRN Reason: Severe Pain Pantoprazole Sodium (Pantoprazole Dr 40 Mg Tablet) 40 mg PO DAILY [facility] Last Admin: 01/18/25 09:31 Dose: 40 mg Sevelamer Carbonate (Sevelamer 800 Mg Tablet) 800 mg PO TIDAC [facility] Last Admin: 01/19/25 05:58 Dose: 800 mg Sodium Chloride (Saline Nasal [place] 44ml Btl) 1 spray NASAL PRN PRN PRN Reason: DRYNESS Last Admin: 01/18/25 21:21 Dose: 1 spray Tamsulosin HCl (Tamsulosin 0.4 Mg Capsule) 0.4 mg PO DAILY [facility] Last Admin: 01/18/25 09:31 Dose: 0.4 mg Vitals/I&O/Wt Last Vital Signs Temp 98.0 F 01/20/25 18:00 Pulse 64 01/20/25 18:00 Resp 18 01/20/25 18:00 BP 113/67 01/20/25 18:00 Pulse Ox 97 01/20/25 18:00 O2 Del Method Nasal Cannula 01/20/25 18:00 O2 Flow Rate 6 01/20/25 14:47 01/20/25 01/20/25 01/20/25 06:59 14:59 22:59 Intake Total 950 / 950 240 / 1190 Output Total 180 / 2170 Balance -180 / -1200 950 / 950 240 / 1190 Weight last 48 hrs Weight 89.086 kg Weight 89.222 kg Weight 92.3 kg Weight 94.256 kg Physical Exam 2 Narrative: General: No acute distress, AO x3 HEENT: PERRLA, pupils bilaterally equal and reactive, pallors not present Did not allow rest of the exam Neuro: No focal deficits, no facial deformity, AO x3, power 5/5 in all limbs Data 01/20/25 04:55 01/20/25 04:55 Micro: Microbiology 01/15/25 05:30 Blood Culture - Final Blood NO GROWTH AFTER 5 DAYS 01/15/25 05:30 Blood Culture - Final Blood NO GROWTH AFTER 5 DAYS 01/19/25 20:45 Occult Blood (FIT) - Final Stool Routine Collection A&P Assessment and plan (1) End-stage renal disease (ESRD): Reviewed intake and output, reviewed chemistry, BUN, creatinine, potassium chronic, bicarb, phosphorus, magnesium, nephro provider note, discussed with nephro provider. Dialysis planned for tomorrow unless he becomes more short of breath, or signs of fluid overload with blood transfusion in which case may be advanced to today. Noted hemoglobin down to 6.5 this morning. 1 unit RBC has been requested. Monitor for risk of fluid overload, transfusion reaction. Discussed with nursing, counter caser. Case management continues to work on hemodialysis and follow-up after discharge. Reassess CBC later in the afternoon after transfusion, repeat chemistry. He declined for records from [facility]. (2) Acute on chronic anemia: Hemoglobin down to 6.5 this morning, down to severe acute on chronic anemia, yesterday 7.6, day prior to that 8.5. Recently has been fluctuating between 7 and 9.5. Discussed with nephrology. 1 unit RBC has been requested. Will repeat blood counts in the afternoon after transfusion. Requested Hemoccult. As per discussion with him also requesting additional workup with CT chest abdomen pelvis for any collection that may suggest new bleeding. Urine has been without hematuria. No reported blood in the stool. He reports poor vision. Iron studies reviewed. Prior B12, folic acid levels reviewed. TSH reviewed. (3) (HFpEF) heart failure with preserved ejection fraction: Reviewed intake and output, and negative balance. Decreasing/resolving lower extremity edema. He has been feeling better. Oxygenation stable, doing well on 3 L nasal cannula oxygen. Continue to monitor intake and output. Next hemodialysis tentatively planned for tomorrow unless needs to be done sooner. Continued arrangements for outpatient dialysis. Limited echo With mild LVH, per discussion with him we will benefit from continued good control of blood pressure, targeting 120/80. Blood pressures here are doing better. Currently 122/65 Fluid restriction 1000 mL. (4) Elevated troponin: Discussed with national service officer, as per review of troponin, patient condition, limited echocardiogram, as well as recent stress test, at this time patient to continue with current medications. Continue medical therapy. Metoprolol. Continue aspirin, statin, beta-coco. (5) Lack of social support: Lives alone. With limited vision. Has had some support from [facility] entry level java developer. Discussed with counter caser, appreciate consultation. Plan Bipolar disorder: Discussed with psychiatrist. Reviewed psychiatry note. Without signs of decompensated bipolar disorder. Having capacity to make decisions. No additional medication adjustment would be advisable at current time. DM2: Continue diabetic diet. Monitor POC glucose. SSI insulin. HTN: Monitor blood pressures. Continue Coreg. January 19, 2025 No new complaints today. Hemoglobin at 7.8. CT of the abdomen and pelvis without any obvious bleeding. Hemoccult is pending. Unfortunately patient had 1 bowel movement however he flushed it prior to specimen being collected. Encouraged to inform his nurse He has a bowel movement so we can send a specimen for FOBT. January 20, 2025: No new complaints today. Hb better at 8.6. Hemoccult + today. Discussed with him undergoing EGD and colonoscopy to evaluate for source of bleeding. He stated he is scared of the procedure so attempted to discuss risks and benefits of undergoing procedure. Discussed advantages of exploring source of Potential GI bleeding such as gatsritis, ulcers, potential mass which may be contributing to long standing anemia. Additionally once GI bleed is excluded, he may be in a better position to undergo angiogram with cardiology. He declines angiogram. Discussed potential risks such as risk of anesthesia,inherent procedural risks. He stops me short in conversation stating he would like to discuss this with someone. Offered to discuss further however he wishes to discuss more with general surgery instead of me. As I was leaving the room, patient was confrontational and verbally abusive using expletives. PDMP PDMP Reviewed: Not Reviewed Attestations 2 Medical Necessity Statement*: disposition planning, needs set up for outpatient dialysis, general surgery assessment for endoscopic evaluation Coding Level of Care Code Acute Code for Chg Fwd Diagnoses End-stage renal disease (ESRD) N18.6 Acute on chronic anemia D64.9 (HFpEF) heart failure with preserved ejection fraction I50.30 Elevated troponin R79.89 Lack of social support Z65.8
--- NOTE | 2025-01-20 18:49 | P.PN_ITS ---
Subjective 2 Subjective: Patient is feeling tired and weak today. Denies any chest pain. Hemoglobin seems to be holding up. Had dialysis yesterday. Complaining of swelling to extremities and scrotum Medications: Medication Review Details: Current Medications Acetaminophen (Acetaminophen 325 Mg Tablet) 650 mg PO Q6H PRN PRN Reason: Mild/Mod Pain Or Temp >/= 101 Albuterol Sulfate (Albuterol 2.5 Mg/3 Ml Neb) 2.5 mg INHALATION Q4H PRN PRN Reason: Shortness Of Breath Last Admin: 01/20/25 14:45 Dose: 2.5 mg Alprazolam (Alprazolam 0.5 Mg Tablet) 0.5 mg PO ONCE PRN PRN Reason: anxiety Aspirin (Aspirin 81 Mg Ec Tablet) 81 mg PO DAILY [facility] Last Admin: 01/19/25 09:29 Dose: 81 mg Atorvastatin Calcium (Atorvastatin 40 Mg Tablet) 80 mg PO QPM [facility] Last Admin: 01/19/25 17:24 Dose: Not Given Bupropion HCl (Bupropion Xl (24 Hr) 150 Mg Tablet) 150 mg PO DAILY [facility] Last Admin: 01/20/25 07:59 Dose: Not Given Camphor/Menthol/Phenol (Blistex Lip Oint 7 Gm Tube) 1 applic TOPICAL PRN PRN PRN Reason: DRYNESS Last Admin: 01/15/25 21:52 Dose: 1 applic Divalproex Sodium (Divalproex Dr 250 Mg Tablet) 250 mg PO 1900 [facility] Last Admin: 01/20/25 18:34 Dose: 250 mg Ezetimibe (Ezetimibe 10 Mg Tablet) 10 mg PO DAILY [facility] Last Admin: 01/20/25 07:59 Dose: 10 mg Ergocalciferol (Ergocalciferol (Vitamin D2) 50,000 Unit Capsule) 50,000 unit PO Q7D [facility] Last Admin: 01/16/25 13:32 Dose: 50,000 unit Fluconazole (Fluconazole 100 Mg Tablet) 200 mg PO DAILY [facility] Last Admin: 01/20/25 07:59 Dose: 200 mg Glucagon (Glucagon 1 Mg/Ml Kit 1 Ml) 1 mg IM ONCE PRN; Protocol PRN Reason: Adult Acute Hypoglycemia Nursing Prot. Guaifenesin (Guaifenesin 100 Mg/5 Ml Udc 10 Ml) 200 mg PO Q4H PRN PRN Reason: COUGH AND CONGESTION Last Admin: 01/20/25 00:48 Dose: 200 mg Heparin Sodium (Porcine) (Heparin 5,000 Unit/Ml Inj 1 Ml) 5,000 unit SUBCUT Q12H [facility] Last Admin: 01/19/25 21:45 Dose: Not Given Dextrose (D5w) 500 mls @ 0 mls/hr IV ONCE PRN; Protocol PRN Reason: Adult Acute Hypoglycemia Prot Dextrose (D10w) 125 mls @ 750 mls/hr IV PRN PRN; Protocol PRN Reason: Adult Acute Hypoglycemia Nursing Protocol Dextrose (D10w) 250 mls @ 1,000 mls/hr IV PRN PRN; Protocol PRN Reason: Adult Acute Hypoglycemia Nursing Protocol Ferric Sodium Gluconate 125 mg (/ Sodium Chloride) 110 mls @ 110 mls/hr IV Q24H [facility] Stop: 01/24/25 11:59 Last Infusion: 01/20/25 12:42 Dose: Infused Insulin Human Lispro (Insulin Lispro 100 Unit/1 Ml) 0 unit SUBCUT WM&BEDTIME [facility]; Protocol Last Admin: 01/20/25 17:32 Dose: 8 unit Isosorbide Mononitrate (Isosorbide Mononitrate Er 30 Mg Tablet) 30 mg PO DAILY [facility] Last Admin: 01/20/25 08:00 Dose: 30 mg Losartan Potassium (Losartan 50 Mg Tablet) 25 mg PO DAILY [facility] Last Admin: 01/20/25 07:59 Dose: 25 mg Metoprolol Tartrate (Metoprolol Tartrate 50 Mg Tablet) 50 mg PO BID@0900,2100 [facility] Last Admin: 01/20/25 08:05 Dose: 50 mg Multivitamins (F-Vxwkmcr-Bghgazj C Tablet) 1 each PO DAILY [facility] Last Admin: 01/20/25 07:59 Dose: 1 each Oxycodone/Acetaminophen (Oxycodone-Apap 5-325 Mg Tablet) 1 tab PO Q4H PRN PRN Reason: Severe Pain Pantoprazole Sodium (Pantoprazole Dr 40 Mg Tablet) 40 mg PO DAILY [facility] Last Admin: 01/20/25 07:59 Dose: 40 mg Pantoprazole Sodium (Pantoprazole 40 Mg Sdv) 40 mg IVP BID [facility] Last Admin: 01/20/25 17:33 Dose: 40 mg Sevelamer Carbonate (Sevelamer 800 Mg Tablet) 800 mg PO TIDAC [facility] Last Admin: 01/20/25 17:32 Dose: 800 mg Sodium Chloride (Saline Nasal [place] 44ml Btl) 1 spray NASAL PRN PRN PRN Reason: DRYNESS Last Admin: 01/18/25 21:21 Dose: 1 spray Tamsulosin HCl (Tamsulosin 0.4 Mg Capsule) 0.4 mg PO DAILY [facility] Last Admin: 01/20/25 07:59 Dose: 0.4 mg Vitals/I&O/Wt Last Vital Signs Temp 98.0 F 01/20/25 18:00 Pulse 64 01/20/25 18:00 Resp 18 01/20/25 18:00 BP 113/67 01/20/25 18:00 Pulse Ox 97 01/20/25 18:00 O2 Del Method Nasal Cannula 01/20/25 18:00 O2 Flow Rate 6 01/20/25 14:47 01/20/25 01/20/25 01/20/25 06:59 14:59 22:59 Intake Total 950 / 950 240 / 1190 Output Total 180 / 2170 Balance -180 / -1200 950 / 950 240 / 1190 Weight last 48 hrs Weight 196 lb 6.4 oz Weight 196 lb 11.2 oz Weight 203 lb 7.787 oz Weight 207 lb 12.8 oz Physical Exam 2 Narrative: GENERAL: The patient is alert and oriented times three. Not in any acute distress. HEENT: No significant pallor, icterus or lymphadenopathy.Oral cavity: There are no mucous membrane lesions. NECK: Trachea appears to be central. No masses noted. No JVD or thyromegaly appreciated. RESPIRATORY: Chest is symmetrical. No intercostals muscle retraction or any accessory muscle activation. There is no chest wall tenderness. Breath sounds are heard bilaterally. No rales or rhonchi heard. No evidence of any consolidation. BREASTS: Deferred. HEART: The heart sounds are normal. No S3 or S4. Short systolic murmur at the lower sternal border. No diastolic murmurs. No pericardial rub ABDOMEN: No vessel pulsations or distention. No tenderness. No organomegaly appreciated. Bowel sounds are normally heard. : Deferred. RECTAL: Deferred. LYMPHATIC: No lymphadenopathy noted in the neck. EXTREMITIES: 1-2+ edema both lower extremities. No cyanosis. Peripheral pulses are palpable and fairly good volume. MUSCULOSKELETAL: No acute joint deformities or swelling SKIN: There are no significant rashes or ecchymosis NEUROPSYCHIATRIC: The patient is alert and oriented x3. Appears to be in a good mood. No tremors or rigidity noted. Data 01/20/25 04:55 01/20/25 04:55 Other Labs: Laboratory Last Values WBC 13.36 10^3/uL (3.29-11.43) H 01/20/25 04:55 RBC 2.93 10^6/uL (3.85-5.65) L 01/20/25 04:55 Hgb 8.60 g/dL (11.27-16.99) L 01/20/25 04:55 Hct 27.4 % (37-53) L 01/20/25 04:55 MCV 93.5 fl (82-101) 01/20/25 04:55 MCH 29.4 pg (27-33) 01/20/25 04:55 MCHC 31.4 g/dL (30-55) 01/20/25 04:55 RDW 14.1 % (12.1-15.1) 01/20/25 04:55 Plt Count 315 10^3/cmm (157-399) 01/20/25 04:55 MPV 10.1 fL (7.4-10.4) 01/20/25 04:55 Neut % (Auto) 75.9 % 01/20/25 04:55 Lymph % (Auto) 10.3 % 01/20/25 04:55 Lucas % (Auto) 9.1 % 01/20/25 04:55 Eos % (Auto) 1.4 % 01/20/25 04:55 Baso % (Auto) 1.1 % 01/20/25 04:55 Neut # (Auto) 10.14 10^3/uL (1.8-7.7) H 01/20/25 04:55 Lymph # (Auto) 1.4 10^3/uL (0.8-4.8) 01/20/25 04:55 Lucas # (Auto) 1.2 10^3/uL (0.2-0.9) H 01/20/25 04:55 Eos # (Auto) 0.2 10^3/uL (0.0-0.8) 01/20/25 04:55 Baso # (Auto) 0.2 10^3/uL (0.0-0.1) H 01/20/25 04:55 Nucleated RBC % (auto) 0.1 % 01/20/25 04:55 Nucleated RBCs # 0.0 /100WBC 01/20/25 04:55 Sodium 137 mmol/L (136-145) 01/20/25 04:55 Potassium 4.6 mmol/L (3.5-5.1) 01/20/25 04:55 Chloride 100 mmol/L (98-107) 01/20/25 04:55 Carbon Dioxide 26 mmol/L (22-29) 01/20/25 04:55 Anion Gap 15.6 (5-19) 01/20/25 04:55 BUN 39 mg/dL (6-20) H 01/20/25 04:55 Creatinine 4.1 mg/dL (0.7-1.2) H 01/20/25 04:55 GFR Calculation 15.1 mL/min (90-130) L 01/20/25 04:55 Glucose 93 mg/dL (65-115) 01/20/25 04:55 POC Glucose 264 mg/dL (70-110) H 01/20/25 16:37 Calculated Osmolality 293 mOsm/kg (285-295) 01/20/25 04:55 Lactic Acid 0.8 mmol/L (0.5-2.2) 01/15/25 05:30 Uric Acid 10.0 mg/dL (3.4-7.0) H 01/15/25 05:30 Calcium 7.8 mg/dL (8.5-10.5) L 01/20/25 04:55 Phosphorus 3.8 mg/dL (2.5-4.5) 01/20/25 04:55 Magnesium 1.8 mg/dL (1.7-2.3) 01/20/25 04:55 Iron 40 ug/dL (59-158) L 01/16/25 03:41 TIBC 179 mcg/dl 01/16/25 03:41 % Saturation 22.3 % (20-50) 01/16/25 03:41 Unsat Iron Binding 139 ug/dL (112-347) 01/16/25 03:41 Ferritin 129 ng/mL (30-400) 01/16/25 03:41 Total Bilirubin 0.2 mg/dL (0.15-1.2) 01/20/25 04:55 AST 25 U/L (0-40) 01/20/25 04:55 ALT 7 U/L (0-41) 01/20/25 04:55 Alkaline Phosphatase 116 U/L (40-130) 01/20/25 04:55 Troponin T Baseline 328 ng/L (0-15) H* 01/15/25 05:30 Troponin T 120 Minute 302.5 ng/L (0-15) H 01/15/25 07:42 Delta Troponin T -25.5 ABS# (0-10) L 01/15/25 07:42 Troponin T Hi Sens 6Hr 310.6 ng/L (0-15) H 01/15/25 11:30 Troponin T Hi Sens 6Hr Delta -17.4 ng/L (0-12) L 01/15/25 11:30 NT-Pro-B Natriuret Pep 35866 pg/mL (0-125) H 01/15/25 05:30 Total Protein 7.1 g/dL (6.6-8.7) 01/20/25 04:55 Albumin 3.2 g/dL (3.5-5.2) L 01/20/25 04:55 Globulin 3.9 g/dL (1.3-4.6) 01/20/25 04:55 25-OH Vitamin D Total 6 ng/mL (30-100) L 01/16/25 03:41 Procalcitonin 0.55 ng/mL (0-0.5) H 01/15/25 05:30 PTH Intact 201.7 pg/mL (15-65) H 01/16/25 03:41 Calcium (PTH Intact) 7.3 mg/dL (8.5-10.5) L 01/16/25 03:41 Urine Color Yellow (Yellow) 01/15/25 17:25 Urine Appearance Clear (CLEAR) 01/15/25 17:25 Urine pH 5.0 (5-7) 01/15/25 17:25 Ur Specific [place] 1.013 (1.005-1.030) 01/15/25 17:25 Urine Protein 3+ (Negative) A 01/15/25 17:25 Urine Glucose (UA) Negative (Normal) 01/15/25 17:25 Urine Ketones Negative (Negative) 01/15/25 17:25 Urine Blood 1+ (Negative) A 01/15/25 17: Urine Nitrate Negative (Negative) 01/15/25 17: Urine Bilirubin Negative (Negative) 01/15/25 17:25 Urine Urobilinogen 0.2 mg/dL (Negative) 01/15/25 17:25 Ur Leukocyte Esterase Negative (Negative) 01/15/25 17:25 Urine RBC 0-2 /hpf (0-2) 01/15/25 17:25 Urine WBC 0-5 /hpf (0-5) 01/15/25 17:25 Ur Squamous Epith Cells 0-5 /hpf (0-5) 01/15/25 17:25 Amorphous Sediment 1+ /hpf 01/15/25 17:25 Urine Bacteria None seen /hpf (NONE) 01/15/25 17: Hyaline Casts 50.46 /lpf 01/15/25 17: Fine Granular Casts 0-4 /lpf H 01/15/25 17:25 Hep Bs Antigen Non-reactive (Nonreactive) 01/15/25 05:30 Hep Bs Antibody < 3.5 (11.5-1000) L 01/15/25 05:30 Hepatitis C Antibody Non-reactive (Nonreactive) 01/15/25 05:30 Influenza A (PCR) Negative (Negative) 01/15/25 05:30 Influenza Type B (PCR) Negative (Negative) 01/15/25 05:30 RSV (PCR) Negative (Negative) 01/15/25 05:30 SARS-CoV-2 (PCR) Negative (Negative) 01/15/25 05:30 Blood Type A Positive 01/18/25 06:23 Rho(D) Type Rh positive 01/18/25 06:23 Antibody Screen Negative 01/18/25 06:23 Crossmatch See Detail 01/18/25 06:23 Micro: Microbiology 01/15/25 05:30 Blood Culture - Final Blood NO GROWTH AFTER 5 DAYS 01/15/25 05:30 Blood Culture - Final Blood NO GROWTH AFTER 5 DAYS 01/19/25 20:45 Occult Blood (FIT) - Final Stool Routine Collection A&P Assessment and plan (1) Acute on chronic diastolic (congestive) heart failure: The heart failure seems to be fairly compensated at this time. May continue on the dialysis as per the nephrology (2) Elevated troponin: This could be related to the chronic renal failure. Possibility of underlying coronary ischemia cannot be excluded. Apparently the patient never had any chest pain. We may consider doing an angiogram, once renal status Stabilized. (3) Acute on chronic anemia: Hemoglobin seems to be remaining stable after the transfusion (4) Hyperlipidemia: May continue on the current management. Qualifiers: Hyperlipidemia type: mixed hyperlipidemia Qualified Code(s): E78.2 - Mixed hyperlipidemia (5) Essential hypertension: The blood pressure is under control at this time. May continue on the current measures (6) Cannabis dependence, uncomplicated: Has not been taking cannabis for the last couple of weeks, as per patient (7) CKD (chronic kidney disease), stage V: Status post hemodialysis. Management as per nephrology (8) Bipolar II disorder: Management as per the primary (9) Edema, peripheral: Most likely related to the renal failure and anemia. Scheduled for dialysis tomorrow. Plan Continue on the current measures. The overall cardiovascular status seems to be stable. PDMP PDMP Reviewed: Not Reviewed Attestations 2 Medical Necessity Statement*: Deferred to the primary Coding Level of Care Code 74718 Diagnoses Acute on chronic diastolic (congestive) heart failure I50.33 Elevated troponin R79.89 Acute on chronic anemia D64.9 Mixed hyperlipidemia E78.2 Hyperlipidemia type: mixed hyperlipidemia Essential hypertension I10 Cannabis dependence, uncomplicated F12.20 CKD (chronic kidney disease), stage V N18.5 Bipolar II disorder F31.81 Edema, peripheral R60.0
[2025-01-20 21:04] LABS: Glucose Point of Care 111 mg/dL (70-110)
[2025-01-21] VITALS (14 sets, daily range): BP systolic 162–192; BP diastolic 83–95; PULSE 73–91; RESP 16–20; TEMP 36.4–36.9; O2SAT 92–97
--- NOTE | 2025-01-21 00:09 | PC.NURSE ---
OB helping hands went into the patients room to get the midnight set of routine vitals. Patient required to be woken up and after the OB helping hands woke the patient up the patient replied why the fuck are you waking me up right now OB helping hands apologized and told the patient it was was routine vitals. The patient agreed to have vitals taken. Patients B/P was elevated and nurse went in to retake patient vitals and the patient was back to resting peacefully in bed with their eyes closed with even, unlabored breathing. Charge nurse was informed and stated that it could be from being woken up and being aggrevated with the nursing staff in why the blood pressure was raised. Patient did received their Metoprolol Tartrate 50mg this HS with a previous B/P of 169/83. Will continue to monitor the patient.
[2025-01-21] MEDS: albuterol 2.5 mg/3 mL Neb INHALATION ×2 (01:40→09:47)
[2025-01-21] MEDS: ALPRAZolam 0.5 mg Tablet PO (02:02)
[2025-01-21] MEDS: sevelamer 800 mg Tablet PO ×3 (06:00→17:37)
[2025-01-21 06:48] LABS: Glucose Point of Care 122 mg/dL (70-110)
[2025-01-21 08:00] LABS: Basophils # 0.1 10^3/uL (0.0-0.1); Basophils % 1.2 %; Eosinophils # 0.3 10^3/uL (0.0-0.8); Eosinophils % 2.8 %; Hematocrit 29.8 % (37-53); Lymphocytes # 1.7 10^3/uL (0.8-4.8); Lymphocytes % 14.8 %; Mean Corpuscular HGB Conc 30.9 g/dL (30-55); Mean Corpuscular Hemoglobin 28.8 pg (27-33); Mean Corpuscular Volume 93.4 fl (82-101); Mean Platelet Volume 9.6 fL (7.4-10.4); Monocytes # 0.9 10^3/uL (0.2-0.9); Neutrophils # 8.47 10^3/uL (1.8-7.7); Neutrophils % 72.3 %; Nucleated Red Blood Cells % 0 %; Platelet Count 328 10^3/cmm (157-399); Red Blood Count 3.19 10^6/uL (3.85-5.65); Red Cell Distribution Width 14.1 % (12.1-15.1); White Blood Count 11.73 10^3/uL (3.29-11.43)
[2025-01-21 08:21] LABS: Alanine Aminotransferase 6 U/L (0-41); Albumin Level 3.4 g/dL (3.5-5.2); Alkaline Phosphatase 111 U/L (40-130); Anion Gap 15.8 (5-19); Aspartate Amino Transferase 18 U/L (0-40); Blood Urea Nitrogen 47 mg/dL (6-20); Calcium 8.2 mg/dL (8.5-10.5); Carbon Dioxide 26 mmol/L (22-29); Chloride 102 mmol/L (98-107); Creatinine Clr Calc Pharmacy 19.1834; Globulin 4.2 g/dL (1.3-4.6); Glomerular Filtration Rate 13.9 mL/min (90-130); Glucose 132 mg/dL (65-115); Magnesium 1.9 mg/dL (1.7-2.3); Osmolality Calculated 302 mOsm/kg (285-295); Phosphorus 3.7 mg/dL (2.5-4.5); Potassium 4.8 mmol/L (3.5-5.1); Sodium 139 mmol/L (136-145); Total Bilirubin 0.2 mg/dL (0.15-1.2); Total Protein 7.6 g/dL (6.6-8.7)
[2025-01-21] MEDS: pantoprazole 40 mg SDV IVP ×2 (08:31→17:37)
[2025-01-21] MEDS: ezetimibe 10 mg Tablet PO (08:32)
[2025-01-21] MEDS: buPROPion XL (24 HR) 150 mg Tablet PO (08:33)
[2025-01-21] MEDS: losartan 50 mg Tablet 25 MG PO (08:33)
[2025-01-21] MEDS: isosorbide mononitrate ER 30 mg Tablet PO (08:33)
[2025-01-21] MEDS: tamsulosin 0.4 mg Capsule PO (08:33)
[2025-01-21] MEDS: b-complex-vitamin c Tablet 1 EACH PO (08:33)
[2025-01-21] MEDS: fluconazole 100 mg Tablet 200 MG PO (08:33)
--- NOTE | 2025-01-21 08:34 | P.PN_ITS ---
Subjective 2 Subjective: No hematochezia, no melena Vitals/I&O/Wt Last Vital Signs Temp 98.5 F 01/21/25 00:32 Pulse 91 01/21/25 06:03 Resp 20 H 01/21/25 06:03 BP 162/88 01/21/25 06:03 Pulse Ox 95 01/21/25 06:03 O2 Del Method High Flow Nasal Cannula 01/21/25 06:03 O2 Flow Rate 6 01/21/25 06:03 01/20/25 01/21/25 01/21/25 22:59 06:59 14:59 Intake Total 240 / 1190 Balance 240 / 1190 Weight last 48 hrs Weight 197 lb 8 oz Weight 196 lb 6.4 oz Weight 196 lb 11.2 oz Weight 203 lb 7.787 oz Physical Exam 2 Narrative: Chest: Unlabored breathing room air. No lymphadenopathy. Heart: Regular rate and rhythm. Abdomen: Soft, nontender, nondistended. No masses or lymphadenopathy. Data 01/21/25 07:51 01/21/25 07:51 Micro: Microbiology 01/15/25 05:30 Blood Culture - Final Blood NO GROWTH AFTER 5 DAYS 01/15/25 05:30 Blood Culture - Final Blood NO GROWTH AFTER 5 DAYS A&P Assessment and plan (1) GI bleed: Plan 60-year-old male following for acute on chronic anemia. Low suspicion for GI bleed. Discussed with hospitalist. Holding off on scope at this time. PDMP PDMP Reviewed: Not Reviewed Attestations 2 Medical Necessity Statement*: N/A Coding Level of Care Code 98162 Diagnoses GI bleed K92.2
[2025-01-21] MEDS: metoprolol tartrate 50 mg Tablet PO ×2 (08:35→21:56)
[2025-01-21 11:12] LABS: Glucose Point of Care 185 mg/dL (70-110)
--- NOTE | 2025-01-21 11:25 | PC.SOCIAL ---
IMM Update pg 2 of IMM Updated and reviewed w patient. Copy provided and copy dated, initialed and placed in chart.
[2025-01-21] MEDS: insulin lispro 100 unit/1 mL SUBCUT (11:29)
--- NOTE | 2025-01-21 12:06 | P.PN_ITS ---
Subjective 2 Subjective: c/o SOB , on 6L NC Medications: Reviewed: Yes Vitals/I&O/Wt Last Vital Signs Temp 97.5 F L 01/21/25 11:43 Pulse 87 01/21/25 11:43 Resp 20 H 01/21/25 11:43 BP 178/87 01/21/25 11:43 Pulse Ox 94 01/21/25 11:43 O2 Del Method Nasal Cannula 01/21/25 11:43 O2 Flow Rate 6 01/21/25 09:47 01/20/25 01/21/25 01/21/25 22:59 06:59 14:59 Intake Total 240 / 1190 480 / 480 Balance 240 / 1190 480 / 480 Weight last 48 hrs Weight 89.584 kg Weight 89.086 kg Weight 89.222 kg Weight 92.3 kg Physical Exam 2 Narrative: Vital signs noted. HEENT normocephalic atraumatic. Neck is supple no JVP. Rt IJ PC Lungs- improved air movement b/l Heart regular positive S1-S2. Abdomen is soft positive bowel sounds. Extremities decreased bilateral edema scrotal edema. Neuro awake alert oriented x 3 and no asterixis Data 01/21/25 07:51 01/21/25 07:51 A&P Assessment and plan (1) End-stage renal disease (ESRD): now HD dependent Plan 59-year-old gentleman with diabetes obesity hypertension grade 2 out of 4 diastolic dysfunction progressive renal insufficiency with renal biopsy showing recent ATN and diabetic nephrosclerosis. 1. ESRD-the patient has progressed to end-stage renal disease. The patient initiated hemodialysis on 01-16 and s/p HD tuesday HD again today -Please use furosemide on non dialysis days. 2. Anemia- iron sat of 22%, ferritin of 129. Will give IV iron he received Epogen. 3. Renal bone mineral metabolism Phosphorus is improving. PTH is 201. Vitamin D is undetectable. Start vitamin D replacement. 4. Blood pressure now low to normal. 5. Elevated BNP due to combination of acute on chronic heart failure with preserved EF exacerbation and from diabetic nephrosclerosis progressing to ESRD. The plan was discussed in detail with the patient and his behavioral health regulatory affairs consultant. Appreciate psychiatry evaluation. The patient was seen and examined with the aid of a nurse using audiovisual equipment. The patient consents to telehealth and to hemodialysis and will attempt to behave appropriately on dialysis. PDMP PDMP Reviewed: Not Reviewed Attestations 2 Medical Necessity Statement*: per lucinda Coding Level of Care Code Acute Code for Chg Fwd Diagnoses End-stage renal disease (ESRD) N18.6
[2025-01-21] MEDS: ferric gluconate 125 MG in sodium chloride 0.9% (100 ml) 100 ML 110 MG IV (13:26)
[2025-01-21] MEDS: heparin, porcine 1,000 unit/mL INJ 10 mL 1000 UNIT IV (13:55)
[2025-01-21 16:05] LABS: Glucose Point of Care 112 mg/dL (70-110)
--- NOTE | 2025-01-21 16:45 | P.PN_ITS ---
Subjective 2 Subjective: 59-year-old male with stage V CKD, HFpEF , chronic hypoxic respiratory failure (on baseline 5L NC), HTN, DM2, anemia, and bipolar disorder who was initially admitted on 12/30 for acute on chronic volume overload and decompensated HFpEF. He improved with continuous IV diuresis and was discharged in stable condition on 01/13. He was readmitted on 01/15 with generalized weakness, worsening edema, and acute renal decompensation (Cr 8.0, BUN 77, AG 20.5), along with signs of volume overload and bilateral airspace disease. He displayed mood lability and difficulty engaging in care discussions, consistent with his known psychiatric history. He acknowledged likely progression to ESRD and agreed to initiate hemodialysis after nephrology and surgical consultation. A tunneled dialysis catheter was placed. Oxygen requirement remains stable at 5-6L NC. Troponin was elevated but stable attributed to demand ischemia in the setting of ESRD. Hogshead Wrecker recommended continuation of aspirin, statin, and beta-coco. Hospital course has been further complicated by progressive anemia (Hb bj 6.5), requiring transfusion with improvement to 8.6. Iron studies and nutritional labs reviewed. Hemoccult positive; CT A/P without overt bleeding source. EGD and colonoscopy were recommended but declined by patient despite counseling. He expressed fear of the procedure and became verbally abusive during discussion to multiple physician prior to assuming care. Psychiatry evaluated and confirmed decisional capacity without evidence of acute psychiatric decompensation. He remains clinically stable, with improving volume status, adequate oxygenation on 5L NC.. He has limited social support and lives alone. Case management is coordinating outpatient dialysis and follow-up. Patient continues to demonstrate significant barriers to care related to behavioral concerns and lack of engagement with medical recommendations Medications: Reviewed: Yes Medication Review Details: Current Medications Acetaminophen (Acetaminophen 325 Mg Tablet) 650 mg PO Q6H PRN PRN Reason: Mild/Mod Pain Or Temp >/= 101 Albuterol Sulfate (Albuterol 2.5 Mg/3 Ml Neb) 2.5 mg INHALATION Q4H PRN PRN Reason: Shortness Of Breath Last Admin: 01/19/25 00:06 Dose: 2.5 mg Alprazolam (Alprazolam 0.5 Mg Tablet) 0.5 mg PO ONCE PRN PRN Reason: anxiety Aspirin (Aspirin 81 Mg Ec Tablet) 81 mg PO DAILY [facility] Last Admin: 01/18/25 09:30 Dose: 81 mg Atorvastatin Calcium (Atorvastatin 40 Mg Tablet) 80 mg PO QPM [facility] Last Admin: 01/18/25 18:03 Dose: Not Given Bupropion HCl (Bupropion Xl (24 Hr) 150 Mg Tablet) 150 mg PO DAILY [facility] Last Admin: 01/18/25 09:30 Dose: Not Given Camphor/Menthol/Phenol (Blistex Lip Oint 7 Gm Tube) 1 applic TOPICAL PRN PRN PRN Reason: DRYNESS Last Admin: 01/15/25 21:52 Dose: 1 applic Divalproex Sodium (Divalproex Dr 250 Mg Tablet) 250 mg PO 1900 [facility] Last Admin: 01/18/25 18:08 Dose: 250 mg Ezetimibe (Ezetimibe 10 Mg Tablet) 10 mg PO DAILY [facility] Last Admin: 01/18/25 09:31 Dose: 10 mg Ergocalciferol (Ergocalciferol (Vitamin D2) 50,000 Unit Capsule) 50,000 unit PO Q7D [facility] Last Admin: 01/16/25 13:32 Dose: 50,000 unit Fluconazole (Fluconazole 100 Mg Tablet) 200 mg PO DAILY [facility] Last Admin: 01/18/25 09:31 Dose: 200 mg Glucagon (Glucagon 1 Mg/Ml Kit 1 Ml) 1 mg IM ONCE PRN; Protocol PRN Reason: Adult Acute Hypoglycemia Nursing Prot. Heparin Sodium (Porcine) (Heparin 5,000 Unit/Ml Inj 1 Ml) 5,000 unit SUBCUT Q12H [facility] Last Admin: 01/18/25 22:19 Dose: 5,000 unit Dextrose (D5w) 500 mls @ 0 mls/hr IV ONCE PRN; Protocol PRN Reason: Adult Acute Hypoglycemia Prot Dextrose (D10w) 125 mls @ 750 mls/hr IV PRN PRN; Protocol PRN Reason: Adult Acute Hypoglycemia Nursing Protocol Dextrose (D10w) 250 mls @ 1,000 mls/hr IV PRN PRN; Protocol PRN Reason: Adult Acute Hypoglycemia Nursing Protocol Ferric Sodium Gluconate 125 mg (/ Sodium Chloride) 110 mls @ 110 mls/hr IV Q24H [facility] Stop: 01/24/25 11:59 Last Infusion: 01/18/25 16:00 Dose: Infused Insulin Human Lispro (Insulin Lispro 100 Unit/1 Ml) 0 unit SUBCUT WM&BEDTIME [facility]; Protocol Last Admin: 01/19/25 07:22 Dose: Not Given Isosorbide Mononitrate (Isosorbide Mononitrate Er 30 Mg Tablet) 30 mg PO DAILY [facility] Last Admin: 01/18/25 09:32 Dose: 30 mg Losartan Potassium (Losartan 50 Mg Tablet) 25 mg PO DAILY [facility] Last Admin: 01/18/25 09:30 Dose: 25 mg Metoprolol Tartrate (Metoprolol Tartrate 50 Mg Tablet) 50 mg PO BID@0900,2100 [facility] Last Admin: 01/18/25 21:08 Dose: Not Given Multivitamins (B-Jmwwiep-Knuhixu C Tablet) 1 each PO DAILY [facility] Last Admin: 01/18/25 09:31 Dose: 1 each Oxycodone/Acetaminophen (Oxycodone-Apap 5-325 Mg Tablet) 1 tab PO Q4H PRN PRN Reason: Severe Pain Pantoprazole Sodium (Pantoprazole Dr 40 Mg Tablet) 40 mg PO DAILY [facility] Last Admin: 01/18/25 09:31 Dose: 40 mg Sevelamer Carbonate (Sevelamer 800 Mg Tablet) 800 mg PO TIDAC [facility] Last Admin: 01/19/25 05:58 Dose: 800 mg Sodium Chloride (Saline Nasal [place] 44ml Btl) 1 spray NASAL PRN PRN PRN Reason: DRYNESS Last Admin: 01/18/25 21:21 Dose: 1 spray Tamsulosin HCl (Tamsulosin 0.4 Mg Capsule) 0.4 mg PO DAILY [facility] Last Admin: 01/18/25 09:31 Dose: 0.4 mg Vitals/I&O/Wt Last Vital Signs Temp 97.7 F 01/21/25 16:00 Pulse 74 01/21/25 16:00 Resp 18 01/21/25 16:00 BP 169/94 01/21/25 16:00 Pulse Ox 92 01/21/25 16:00 O2 Del Method Nasal Cannula 01/21/25 16:00 O2 Flow Rate 6 01/21/25 09:47 01/21/25 01/21/25 01/21/25 06:59 14:59 22:59 Intake Total 830 / 830 Balance 830 / 830 Weight last 48 hrs Weight 89.584 kg Weight 89.086 kg Weight 89.222 kg Physical Exam 2 Narrative: General: No acute distress, AO x3 HEENT: PERRLA, pupils bilaterally equal and reactive, pallors not present Did not allow rest of the exam Neuro: No focal deficits, no facial deformity, AO x3, power 5/5 in all limbs Data 01/21/25 07:51 01/21/25 07:51 A&P Assessment and plan (1) End-stage renal disease (ESRD): (2) Acute on chronic anemia: (3) (HFpEF) heart failure with preserved ejection fraction: (4) Elevated troponin: (5) Lack of social support: Plan 1. 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 * Creatinine peaked at 8.0, BUN 77. * Initiated hemodialysis on 01/16 during current admission * Patient is experiencing dyspnea on 5L NC, nephrology to proceed with HD today. * Likely to transition to a Tu/Th/Sat outpatient dialysis schedule upon discharge. * Patient agreeable to dialysis but continues to decline detailed [id number] discussions and resists hospice consideration. Plan: Proceed with inpatient hemodialysis today per nephrology due to ongoing dyspnea. Administer IV furosemide on non-dialysis days to support fluid management. Monitor electrolytes, renal function, and fluid status closely. Coordinate with case management and nephrology for transition to outpatient HD post-discharge (anticipated Tu/Th/Sat schedule). Reinforce adherence and assess need for long-term dialysis support resources. 2. Decompensated Heart Failure with Preserved Ejection Fraction (HFpEF) * Presented with worsening dyspnea, LE edema, and bilateral airspace disease with small pleural effusions. * Persistent symptoms with current O2 requirement of 5L nasal cannula. * BNP elevated, likely multifactorial from chronic HFpEF and volume overload in ESRD. * Troponins elevated * Hogshead Wrecker consulted and recommended continuation of medical therapy. Plan: Continue fluid restriction Continue IV diuretics on non-HD days. Maintain on 5L nasal cannula oxygen; titrate as tolerated. Monitor daily weights and fluid balance. Continue aspirin, statin, and beta-coco as per cardiology. No need for further serial troponins unless symptoms change. 3 Anemia * Hemoglobin dropped to 6.5, improved to 8.6 post-transfusion * Positive hemoccult test * In setting of ESRD Plan: Continue iron supplementation (IV iron). Monitor hemoglobin levels. Reassess need for further transfusions. Surgery consulted. Patient declined EGD and colonoscopy. PDMP PDMP Reviewed: Not Reviewed Attestations 2 Medical Necessity Statement*: disposition planning, needs set up for outpatient dialysis, general surgery assessment for endoscopic evaluation Coding Level of Care Code Acute Code for Chg Fwd Diagnoses End-stage renal disease (ESRD) N18.6 Acute on chronic anemia D64.9 (HFpEF) heart failure with preserved ejection fraction I50.30 Elevated troponin R79.89 Lack of social support Z65.8
[2025-01-21] MEDS: heparin, porcine 1,000 unit/mL INJ 10 mL 10000 UNIT INTRACATH (17:27)
[2025-01-21] MEDS: divalproex DR 250 mg Tablet PO (17:37)
[2025-01-21] MEDS: oxyCODONE-APAP 5-325 mg Tablet 1 TAB PO (17:38)
--- NOTE | 2025-01-21 17:49 | PC.HD ---
Cath dressing changed at start of treatment, dressing stiff with dried blood and large clot and large crust of dried blood adhered to catheter. Site didn't appear to be actively oozing but blood shadow showing through dressing by treatment end. Dressing changed again with folded gauze added under Covaderm and gauze over dressing with stretched foam tape to apply light pressure. Dr Tubbs and patient's nurse margo
[2025-01-21 20:44] LABS: Glucose Point of Care 266 mg/dL (70-110)
[2025-01-22] VITALS (13 sets, daily range): BP systolic 164–185; BP diastolic 77–93; PULSE 72–91; RESP 16–18; TEMP 36.4–37.6; O2SAT 94–97
[2025-01-22] MEDS: albuterol 2.5 mg/3 mL Neb INHALATION ×2 (01:35→10:35)
[2025-01-22] MEDS: sevelamer 800 mg Tablet PO ×3 (06:20→16:55)
[2025-01-22 06:41] LABS: Glucose Point of Care 156 mg/dL (70-110)
[2025-01-22 08:18] LABS: Basophils # 0.2 10^3/uL (0.0-0.1); Basophils % 1.7 %; Eosinophils # 0.4 10^3/uL (0.0-0.8); Eosinophils % 2.9 %; Hematocrit 30.6 % (37-53); Lymphocytes # 1.6 10^3/uL (0.8-4.8); Lymphocytes % 13.7 %; Mean Corpuscular HGB Conc 30.1 g/dL (30-55); Mean Corpuscular Hemoglobin 28.6 pg (27-33); Mean Platelet Volume 9.5 fL (7.4-10.4); Monocytes % 8.3 %; Neutrophils # 8.63 10^3/uL (1.8-7.7); Neutrophils % 72.6 %; Nucleated Red Blood Cells % 0 %; Platelet Count 355 10^3/cmm (157-399); Red Blood Count 3.22 10^6/uL (3.85-5.65)
[2025-01-22 08:41] LABS: Alanine Aminotransferase 8 U/L (0-41); Albumin Level 3.2 g/dL (3.5-5.2); Alkaline Phosphatase 106 U/L (40-130); Anion Gap 15.4 (5-19); Aspartate Amino Transferase 18 U/L (0-40); Blood Urea Nitrogen 28 mg/dL (6-20); Calcium 8.1 mg/dL (8.5-10.5); Carbon Dioxide 24 mmol/L (22-29); Chloride 99 mmol/L (98-107); Creatinine Clr Calc Pharmacy 26.9075; Glomerular Filtration Rate 20.8 mL/min (90-130); Glucose 152 mg/dL (65-115); Osmolality Calculated 286 mOsm/kg (285-295); Potassium 4.4 mmol/L (3.5-5.1); Sodium 134 mmol/L (136-145); Total Bilirubin 0.2 mg/dL (0.15-1.2); Total Protein 7.2 g/dL (6.6-8.7)
[2025-01-22] MEDS: fluconazole 100 mg Tablet 200 MG PO (09:04)
[2025-01-22] MEDS: insulin lispro 100 unit/1 mL SUBCUT ×3 (09:04→20:18)
[2025-01-22] MEDS: pantoprazole 40 mg SDV IVP (09:04)
[2025-01-22] MEDS: metoprolol tartrate 50 mg Tablet PO ×2 (09:05→20:18)
[2025-01-22] MEDS: buPROPion XL (24 HR) 150 mg Tablet PO (09:05)
[2025-01-22] MEDS: b-complex-vitamin c Tablet 1 EACH PO (09:05)
[2025-01-22] MEDS: losartan 50 mg Tablet 25 MG PO (09:05)
[2025-01-22] MEDS: ezetimibe 10 mg Tablet PO (09:05)
[2025-01-22] MEDS: tamsulosin 0.4 mg Capsule PO (09:06)
[2025-01-22] MEDS: isosorbide mononitrate ER 30 mg Tablet PO (09:06)
[2025-01-22 10:55] LABS: Glucose Point of Care 140 mg/dL (70-110)
--- NOTE | 2025-01-22 11:47 | P.PN_ITS ---
Subjective 2 Subjective: 59-year-old male with stage V CKD, HFpEF , chronic hypoxic respiratory failure (on baseline 5L NC), HTN, DM2, anemia, and bipolar disorder who was initially admitted on 12/30 for acute on chronic volume overload and decompensated HFpEF. He improved with continuous IV diuresis and was discharged in stable condition on 01/13. He was readmitted on 01/15 with generalized weakness, worsening edema, and acute renal decompensation (Cr 8.0, BUN 77, AG 20.5), along with signs of volume overload and bilateral airspace disease. He displayed mood lability and difficulty engaging in care discussions, consistent with his known psychiatric history. He acknowledged likely progression to ESRD and agreed to initiate hemodialysis after nephrology and surgical consultation. A tunneled dialysis catheter was placed. Oxygen requirement remains stable at 5-6L NC. Troponin was elevated but stable attributed to demand ischemia in the setting of ESRD. Tr[employer] Machine Operator recommended continuation of aspirin, statin, and beta-coco. Hospital course has been further complicated by progressive anemia (Hb bj 6.5), requiring transfusion with improvement to 8.6. Iron studies and nutritional labs reviewed. Hemoccult positive; CT A/P without overt bleeding source. EGD and colonoscopy were recommended but declined by patient despite counseling. He expressed fear of the procedure and became verbally abusive during discussion to multiple physician prior to assuming care. Psychiatry evaluated and confirmed decisional capacity without evidence of acute psychiatric decompensation. He remains clinically stable, with improving volume status, adequate oxygenation on 5L NC.. He has limited social support and lives alone. Case management is coordinating outpatient dialysis and follow-up. Patient continues to demonstrate significant barriers to care related to behavioral concerns and lack of engagement with medical recommendations 01/22 patient stated he was feeling markedly better today. No fever, chills, nausea or vomiting. Oxygen was weaned to 2l via NC. Medications: Reviewed: Yes Medication Review Details: Current Medications Acetaminophen (Acetaminophen 325 Mg Tablet) 650 mg PO Q6H PRN PRN Reason: Mild/Mod Pain Or Temp >/= 101 Albuterol Sulfate (Albuterol 2.5 Mg/3 Ml Neb) 2.5 mg INHALATION Q4H PRN PRN Reason: Shortness Of Breath Last Admin: 01/19/25 00:06 Dose: 2.5 mg Alprazolam (Alprazolam 0.5 Mg Tablet) 0.5 mg PO ONCE PRN PRN Reason: anxiety Aspirin (Aspirin 81 Mg Ec Tablet) 81 mg PO DAILY [facility] Last Admin: 01/18/25 09:30 Dose: 81 mg Atorvastatin Calcium (Atorvastatin 40 Mg Tablet) 80 mg PO QPM [facility] Last Admin: 01/18/25 18:03 Dose: Not Given Bupropion HCl (Bupropion Xl (24 Hr) 150 Mg Tablet) 150 mg PO DAILY [facility] Last Admin: 01/18/25 09:30 Dose: Not Given Camphor/Menthol/Phenol (Blistex Lip Oint 7 Gm Tube) 1 applic TOPICAL PRN PRN PRN Reason: DRYNESS Last Admin: 01/15/25 21:52 Dose: 1 applic Divalproex Sodium (Divalproex Dr 250 Mg Tablet) 250 mg PO 1900 [facility] Last Admin: 01/18/25 18:08 Dose: 250 mg Ezetimibe (Ezetimibe 10 Mg Tablet) 10 mg PO DAILY [facility] Last Admin: 01/18/25 09:31 Dose: 10 mg Ergocalciferol (Ergocalciferol (Vitamin D2) 50,000 Unit Capsule) 50,000 unit PO Q7D [facility] Last Admin: 01/16/25 13:32 Dose: 50,000 unit Fluconazole (Fluconazole 100 Mg Tablet) 200 mg PO DAILY [facility] Last Admin: 01/18/25 09:31 Dose: 200 mg Glucagon (Glucagon 1 Mg/Ml Kit 1 Ml) 1 mg IM ONCE PRN; Protocol PRN Reason: Adult Acute Hypoglycemia Nursing Prot. Heparin Sodium (Porcine) (Heparin 5,000 Unit/Ml Inj 1 Ml) 5,000 unit SUBCUT Q12H [facility] Last Admin: 01/18/25 22:19 Dose: 5,000 unit Dextrose (D5w) 500 mls @ 0 mls/hr IV ONCE PRN; Protocol PRN Reason: Adult Acute Hypoglycemia Prot Dextrose (D10w) 125 mls @ 750 mls/hr IV PRN PRN; Protocol PRN Reason: Adult Acute Hypoglycemia Nursing Protocol Dextrose (D10w) 250 mls @ 1,000 mls/hr IV PRN PRN; Protocol PRN Reason: Adult Acute Hypoglycemia Nursing Protocol Ferric Sodium Gluconate 125 mg (/ Sodium Chloride) 110 mls @ 110 mls/hr IV Q24H [facility] Stop: 01/24/25 11:59 Last Infusion: 01/18/25 16:00 Dose: Infused Insulin Human Lispro (Insulin Lispro 100 Unit/1 Ml) 0 unit SUBCUT WM&BEDTIME [facility]; Protocol Last Admin: 01/19/25 07:22 Dose: Not Given Isosorbide Mononitrate (Isosorbide Mononitrate Er 30 Mg Tablet) 30 mg PO DAILY [facility] Last Admin: 01/18/25 09:32 Dose: 30 mg Losartan Potassium (Losartan 50 Mg Tablet) 25 mg PO DAILY [facility] Last Admin: 01/18/25 09:30 Dose: 25 mg Metoprolol Tartrate (Metoprolol Tartrate 50 Mg Tablet) 50 mg PO BID@0900,2100 [facility] Last Admin: 01/18/25 21:08 Dose: Not Given Multivitamins (U-Oebgayz-Nxtjmwn C Tablet) 1 each PO DAILY [facility] Last Admin: 01/18/25 09:31 Dose: 1 each Oxycodone/Acetaminophen (Oxycodone-Apap 5-325 Mg Tablet) 1 tab PO Q4H PRN PRN Reason: Severe Pain Pantoprazole Sodium (Pantoprazole Dr 40 Mg Tablet) 40 mg PO DAILY [facility] Last Admin: 01/18/25 09:31 Dose: 40 mg Sevelamer Carbonate (Sevelamer 800 Mg Tablet) 800 mg PO TIDAC [facility] Last Admin: 01/19/25 05:58 Dose: 800 mg Sodium Chloride (Saline Nasal [place] 44ml Btl) 1 spray NASAL PRN PRN PRN Reason: DRYNESS Last Admin: 01/18/25 21:21 Dose: 1 spray Tamsulosin HCl (Tamsulosin 0.4 Mg Capsule) 0.4 mg PO DAILY [facility] Last Admin: 01/18/25 09:31 Dose: 0.4 mg Vitals/I&O/Wt Last Vital Signs Temp 97.6 F 01/22/25 07:53 Pulse 80 01/22/25 11:46 Resp 17 01/22/25 11:46 BP 171/89 01/22/25 11:46 Pulse Ox 95 01/22/25 11:46 O2 Del Method Nasal Cannula 01/22/25 11:46 O2 Flow Rate 4.5 01/22/25 10:35 01/21/25 01/22/25 01/22/25 22:59 06:59 14:59 Intake Total 860 / 1690 120 / 120 Output Total 4000 / 4000 Balance -3140 / -2310 120 / 120 Weight last 48 hrs Weight 87.402 kg Weight 87.407 kg Weight 89.584 kg Physical Exam 2 Narrative: General: No acute distress, AO x3 HEENT: PERRLA, pupils bilaterally equal and reactive, pallors not present Did not allow rest of the exam Neuro: No focal deficits, no facial deformity, AO x3, power 5/5 in all limbs Data 01/22/25 08:05 01/22/25 08:05 A&P Assessment and plan (1) End-stage renal disease (ESRD): (2) Acute on chronic anemia: (3) (HFpEF) heart failure with preserved ejection fraction: (4) Elevated troponin: (5) Lack of social support: Plan 1. 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 * Creatinine peaked at 8.0, BUN 77. * Initiated hemodialysis on 01/16 during current admission * Likely to transition to a //Tue outpatient dialysis schedule upon discharge. * Case managment assisting on aranging outpatient HD Plan: Proceed with inpatient hemodialysis as per nephrology Monitor electrolytes, renal function, and fluid status closely. Coordinate with case management and nephrology for transition to outpatient HD post-discharge (anticipated //Tue schedule). 2. Decompensated Heart Failure with Preserved Ejection Fraction (HFpEF) / Acute respiratory failure with hypoxemia / Elevated troponin suspected demand ischemia * Presented with worsening dyspnea, LE edema, and bilateral airspace disease with small pleural effusions. * Persistent symptoms with current O2 requirement of 5L nasal cannula. * BNP elevated, likely multifactorial from chronic HFpEF and volume overload in ESRD. * Troponins elevated * Tr[employer] Machine Operator consulted and recommended continuation of medical therapy. Plan: Continue fluid restriction Continue Metoprolol 50 mg BID and fluid management with HD Aspirin 81 mg daily(Held), lipitor 80 mg daily(Held), imdur 30 mg daily and losartan 25 mg daily and zetia 10 mg po daily Oxygen weaned to 4l today Monitor daily weights and fluid balance. No need for further serial troponins unless symptoms change. 3 Anemia * Hemoglobin dropped to 6.5, improved to 8.6 post-transfusion. Hemoglobin now 9.20. Surgery was consulted and accordning to surgeon patient has refused EGD/Colonoscpy. * Positive hemoccult test * In setting of ESRD Plan: Continue iron supplementation (IV iron) - ordered daily until 27th Surgery consulted. Patient declined EGD and colonoscopy. Aspirin and heparin for dvt prophylaxis has been held. Given stable hemoglobin no active bleed will resume aspirin. PDMP PDMP Reviewed: Not Reviewed Attestations 2 Medical Necessity Statement*: disposition planning, needs set up for outpatient dialysis, general surgery assessment for endoscopic evaluation Coding Level of Care Code Acute Code for Chg Fwd Diagnoses End-stage renal disease (ESRD) N18.6 Acute on chronic anemia D64.9 (HFpEF) heart failure with preserved ejection fraction I50.30 Elevated troponin R79.89 Lack of social support Z65.8
[2025-01-22] MEDS: ferric gluconate 125 MG in sodium chloride 0.9% (100 ml) 100 ML 110 MG IV (12:06)
--- NOTE | 2025-01-22 13:32 | P.PN_ITS ---
Subjective 2 Subjective: c/o SOB Medications: Reviewed: Yes Vitals/I&O/Wt Last Vital Signs Temp 97.6 F 01/22/25 07:53 Pulse 80 01/22/25 11:46 Resp 17 01/22/25 11:46 BP 171/89 01/22/25 11:46 Pulse Ox 95 01/22/25 11:46 O2 Del Method Nasal Cannula 01/22/25 11:46 O2 Flow Rate 4.5 01/22/25 10:35 01/21/25 01/22/25 01/22/25 22:59 06:59 14:59 Intake Total 860 / 1690 170 / 170 Output Total 4000 / 4000 Balance -3140 / -2310 170 / 170 Weight last 48 hrs Weight 87.402 kg Weight 87.407 kg Weight 89.584 kg Physical Exam 2 Narrative: Vital signs noted. HEENT normocephalic atraumatic. Neck is supple no JVP. Rt IJ PC Lungs- improved air movement b/l Heart regular positive S1-S2. Abdomen is soft positive bowel sounds. Extremities decreased bilateral edema scrotal edema. Neuro awake alert oriented x 3 and no asterixis Data 01/22/25 08:05 01/22/25 08:05 A&P Assessment and plan (1) End-stage renal disease (ESRD): now HD dependent Plan 59-year-old gentleman with diabetes obesity hypertension grade 2 out of 4 diastolic dysfunction progressive renal insufficiency with renal biopsy showing recent ATN and diabetic nephrosclerosis. 1. ESRD-the patient has progressed to end-stage renal disease. The patient initiated hemodialysis on 01-16 and s/p HD yesterday HD again today -Please use furosemide on non dialysis days. 2. Anemia- iron sat of 22%, ferritin of 129. Will give IV iron he received Epogen. 3. Renal bone mineral metabolism Phosphorus is improving. PTH is 201. Vitamin D is undetectable. Start vitamin D replacement. 4. Blood pressure now low to normal. 5. Elevated BNP due to combination of acute on chronic heart failure with preserved EF exacerbation and from diabetic nephrosclerosis progressing to ESRD. The plan was discussed in detail with the patient and his behavioral health events solutions consultant. Appreciate psychiatry evaluation. The patient was seen and examined with the aid of a nurse using audiovisual equipment. The patient consents to telehealth and to hemodialysis and will attempt to behave appropriately on dialysis. PDMP PDMP Reviewed: Not Reviewed Attestations 2 Medical Necessity Statement*: per albaro Coding Level of Care Code Acute Code for Chg Fwd Diagnoses End-stage renal disease (ESRD) N18.6
--- NOTE | 2025-01-22 13:34 | PM.PN ---
Subjective Subjective: Patient is feeling better. Continues to have the weakness. Vitals seems to be stable. The hemoglobin also is stable Medications: Medication Review Details: Current Medications Acetaminophen (Acetaminophen 325 Mg Tablet) 650 mg PO Q6H PRN PRN Reason: Mild/Mod Pain Or Temp >/= 101 Albuterol Sulfate (Albuterol 2.5 Mg/3 Ml Neb) 2.5 mg INHALATION Q4H PRN PRN Reason: Shortness Of Breath Last Admin: 01/22/25 10:35 Dose: 2.5 mg Alprazolam (Alprazolam 0.5 Mg Tablet) 0.5 mg PO BEDTIME PRN PRN Reason: ANXIETY Aspirin (Aspirin 81 Mg Ec Tablet) 81 mg PO DAILY [facility] Last Admin: 01/19/25 09:29 Dose: 81 mg Atorvastatin Calcium (Atorvastatin 40 Mg Tablet) 80 mg PO QPM [facility] Last Admin: 01/19/25 17:24 Dose: Not Given Bupropion HCl (Bupropion Xl (24 Hr) 150 Mg Tablet) 150 mg PO DAILY [facility] Last Admin: 01/22/25 09:05 Dose: 150 mg Camphor/Menthol/Phenol (Blistex Lip Oint 7 Gm Tube) 1 applic TOPICAL PRN PRN PRN Reason: DRYNESS Last Admin: 01/15/25 21:52 Dose: 1 applic Divalproex Sodium (Divalproex Dr 250 Mg Tablet) 250 mg PO 1900 [facility] Last Admin: 01/21/25 17:37 Dose: 250 mg Ezetimibe (Ezetimibe 10 Mg Tablet) 10 mg PO DAILY [facility] Last Admin: 01/22/25 09:05 Dose: 10 mg Ergocalciferol (Ergocalciferol (Vitamin D2) 50,000 Unit Capsule) 50,000 unit PO Q7D [facility] Last Admin: 01/16/25 13:32 Dose: 50,000 unit Fluconazole (Fluconazole 100 Mg Tablet) 200 mg PO DAILY [facility] Last Admin: 01/22/25 09:04 Dose: 200 mg Glucagon (Glucagon 1 Mg/Ml Kit 1 Ml) 1 mg IM ONCE PRN; Protocol PRN Reason: Adult Acute Hypoglycemia Nursing Prot. Guaifenesin (Guaifenesin 100 Mg/5 Ml Udc 10 Ml) 200 mg PO Q4H PRN PRN Reason: COUGH AND CONGESTION Last Admin: 01/20/25 19:49 Dose: 200 mg Heparin Sodium (Porcine) (Heparin 5,000 Unit/Ml Inj 1 Ml) 5,000 unit SUBCUT Q12H [facility] Last Admin: 01/19/25 21:45 Dose: Not Given Dextrose (D5w) 500 mls @ 0 mls/hr IV ONCE PRN; Protocol PRN Reason: Adult Acute Hypoglycemia Prot Dextrose (D10w) 125 mls @ 750 mls/hr IV PRN PRN; Protocol PRN Reason: Adult Acute Hypoglycemia Nursing Protocol Dextrose (D10w) 250 mls @ 1,000 mls/hr IV PRN PRN; Protocol PRN Reason: Adult Acute Hypoglycemia Nursing Protocol Ferric Sodium Gluconate 125 mg (/ Sodium Chloride) 110 mls @ 110 mls/hr IV Q24H [facility] Stop: 01/24/25 11:59 Last Admin: 01/22/25 12:06 Dose: 110 mls/hr Sodium Chloride (Sodium Chloride 0.9%) 1,000 mls @ 0 mls/hr IV .Q0M PRN PRN Reason: hypotension or symptomatic Albumin Human (Albumin) 12.5 gm in 50 mls @ 60 mls/hr IV PRN PRN PRN Reason: Hypotension and/or symptomatic Insulin Human Lispro (Insulin Lispro 100 Unit/1 Ml) 0 unit SUBCUT WM&BEDTIME [facility]; Protocol Last Admin: 01/22/25 11:14 Dose: Not Given Isosorbide Mononitrate (Isosorbide Mononitrate Er 30 Mg Tablet) 30 mg PO DAILY [facility] Last Admin: 01/22/25 09:06 Dose: 30 mg Losartan Potassium (Losartan 50 Mg Tablet) 25 mg PO DAILY [facility] Last Admin: 01/22/25 09:05 Dose: 25 mg Metoprolol Tartrate (Metoprolol Tartrate 50 Mg Tablet) 50 mg PO BID@0900,2100 [facility] Last Admin: 01/22/25 09:05 Dose: 50 mg Multivitamins (L-Uwubbyu-Kwkzeom C Tablet) 1 each PO DAILY [facility] Last Admin: 01/22/25 09:05 Dose: 1 each Oxycodone/Acetaminophen (Oxycodone-Apap 5-325 Mg Tablet) 1 tab PO Q4H PRN PRN Reason: Severe Pain Last Admin: 01/21/25 17:38 Dose: 1 tab Pantoprazole Sodium (Pantoprazole 40 Mg Sdv) 40 mg IVP Q12H [facility] Last Admin: 01/22/25 12:09 Dose: Not Given Sevelamer Carbonate (Sevelamer 800 Mg Tablet) 800 mg PO TIDAC [facility] Last Admin: 01/22/25 11:56 Dose: 800 mg Sodium Chloride (Saline Nasal [place] 44ml Btl) 1 spray NASAL PRN PRN PRN Reason: DRYNESS Last Admin: 01/18/25 21:21 Dose: 1 spray Tamsulosin HCl (Tamsulosin 0.4 Mg Capsule) 0.4 mg PO DAILY [facility] Last Admin: 01/22/25 09:06 Dose: 0.4 mg Vitals/I&O/Wt Last Vital Signs Temp 97.6 F 01/22/25 07:53 Pulse 80 01/22/25 11:46 Resp 17 01/22/25 11:46 BP 171/89 01/22/25 11:46 Pulse Ox 95 01/22/25 11:46 O2 Del Method Nasal Cannula 01/22/25 11:46 O2 Flow Rate 4.5 01/22/25 10:35 01/21/25 01/22/25 01/22/25 22:59 06:59 14:59 Intake Total 860 / 1690 170 / 170 Output Total 4000 / 4000 Balance -3140 / -2310 170 / 170 Weight last 48 hrs Weight 192 lb 11 oz Weight 192 lb 11.2 oz Weight 197 lb 8 oz Physical Exam Narrative: GENERAL: The patient is alert and oriented times three. Not in any acute distress. HEENT: No significant pallor, icterus or lymphadenopathy.Oral cavity: There are no mucous membrane lesions. NECK: Trachea appears to be central. No masses noted. No JVD or thyromegaly appreciated. RESPIRATORY: Chest is symmetrical. No intercostals muscle retraction or any accessory muscle activation. There is no chest wall tenderness. Breath sounds are heard bilaterally. No rales or rhonchi heard. No evidence of any consolidation. BREASTS: Deferred. HEART: The heart sounds are normal. No S3 or S4. Short systolic murmur at the lower sternal border. No diastolic murmurs. No pericardial rub ABDOMEN: No vessel pulsations or distention. No tenderness. No organomegaly appreciated. Bowel sounds are normally heard. : Deferred. RECTAL: Deferred. LYMPHATIC: No lymphadenopathy noted in the neck. EXTREMITIES: 1-2+ edema both lower extremities. No cyanosis. Peripheral pulses are palpable and fairly good volume. MUSCULOSKELETAL: No acute joint deformities or swelling SKIN: There are no significant rashes or ecchymosis NEUROPSYCHIATRIC: The patient is alert and oriented x3. Appears to be in a good mood. No tremors or rigidity noted. Data 01/22/25 08:05 01/22/25 08:05 Other Labs: Laboratory Last Values WBC 11.90 10^3/uL (3.29-11.43) H 01/22/25 08:05 RBC 3.22 10^6/uL (3.85-5.65) L 01/22/25 08:05 Hgb 9.20 g/dL (11.27-16.99) L 01/22/25 08:05 Hct 30.6 % (37-53) L 01/22/25 08:05 MCV 95.0 fl (82-101) 01/22/25 08:05 MCH 28.6 pg (27-33) 01/22/25 08:05 MCHC 30.1 g/dL (30-55) 01/22/25 08:05 RDW 14.0 % (12.1-15.1) 01/22/25 08:05 Plt Count 355 10^3/cmm (157-399) 01/22/25 08:05 MPV 9.5 fL (7.4-10.4) 01/22/25 08:05 Neut % (Auto) 72.6 % 01/22/25 08:05 Lymph % (Auto) 13.7 % 01/22/25 08:05 [place] % (Auto) 8.3 % 01/22/25 08:05 Eos % (Auto) 2.9 % 01/22/25 08:05 Baso % (Auto) 1.7 % 01/22/25 08:05 Neut # (Auto) 8.63 10^3/uL (1.8-7.7) H 01/22/25 08:05 Lymph # (Auto) 1.6 10^3/uL (0.8-4.8) 01/22/25 08:05 Donley # (Auto) 1.0 10^3/uL (0.2-0.9) H 01/22/25 08:05 Eos # (Auto) 0.4 10^3/uL (0.0-0.8) 01/22/25 08:05 Baso # (Auto) 0.2 10^3/uL (0.0-0.1) H 01/22/25 08:05 Nucleated RBC % (auto) 0 % 01/22/25 08:05 Nucleated RBCs # 0.0 /100WBC 01/22/25 08:05 Sodium 134 mmol/L (136-145) L 01/22/25 08:05 Potassium 4.4 mmol/L (3.5-5.1) 01/22/25 08:05 Chloride 99 mmol/L (98-107) 01/22/25 08:05 Carbon Dioxide 24 mmol/L (22-29) 01/22/25 08:05 Anion Gap 15.4 (5-19) 01/22/25 08:05 BUN 28 mg/dL (6-20) H 01/22/25 08:05 Creatinine 3.1 mg/dL (0.7-1.2) H 01/22/25 08:05 GFR Calculation 20.8 mL/min (90-130) L 01/22/25 08:05 Glucose 152 mg/dL (65-115) H 01/22/25 08:05 POC Glucose 206 mg/dL (70-110) H 01/22/25 20:03 Calculated Osmolality 286 mOsm/kg (285-295) 01/22/25 08:05 Lactic Acid 0.8 mmol/L (0.5-2.2) 01/15/25 05:30 Uric Acid 10.0 mg/dL (3.4-7.0) H 01/15/25 05:30 Calcium 8.1 mg/dL (8.5-10.5) L 01/22/25 08:05 Phosphorus 3.7 mg/dL (2.5-4.5) 01/21/25 07:51 Magnesium 1.9 mg/dL (1.7-2.3) 01/21/25 07:51 Iron 40 ug/dL (59-158) L 01/16/25 03:41 TIBC 179 mcg/dl 01/16/25 03:41 % Saturation 22.3 % (20-50) 01/16/25 03:41 Unsat Iron Binding 139 ug/dL (112-347) 01/16/25 03:41 Ferritin 129 ng/mL (30-400) 01/16/25 03:41 Total Bilirubin 0.2 mg/dL (0.15-1.2) 01/22/25 08:05 AST 18 U/L (0-40) 01/22/25 08:05 ALT 8 U/L (0-41) 01/22/25 08:05 Alkaline Phosphatase 106 U/L (40-130) 01/22/25 08:05 Troponin T Baseline 328 ng/L (0-15) H* 01/15/25 05:30 Troponin T 120 Minute 302.5 ng/L (0-15) H 01/15/25 07:42 Delta Troponin T -25.5 ABS# (0-10) L 01/15/25 07:42 Troponin T Hi Sens 6Hr 310.6 ng/L (0-15) H 01/15/25 11:30 Troponin T Hi Sens 6Hr Delta -17.4 ng/L (0-12) L 01/15/25 11:30 NT-Pro-B Natriuret Pep 10363 pg/mL (0-125) H 01/15/25 05:30 Total Protein 7.2 g/dL (6.6-8.7) 01/22/25 08:05 Albumin 3.2 g/dL (3.5-5.2) L 01/22/25 08:05 Globulin 4.0 g/dL (1.3-4.6) 01/22/25 08:05 25-OH Vitamin D Total 6 ng/mL (30-100) L 01/16/25 03:41 Procalcitonin 0.55 ng/mL (0-0.5) H 01/15/25 05:30 PTH Intact 201.7 pg/mL (15-65) H 01/16/25 03:41 Calcium (PTH Intact) 7.3 mg/dL (8.5-10.5) L 01/16/25 03:41 Urine Color Yellow (Yellow) 01/15/25 17:25 Urine Appearance Clear (CLEAR) 01/15/25 17:25 Urine pH 5.0 (5-7) 01/15/25 17:25 Ur Specific [place] 1.013 (1.005-1.030) 01/15/25 17:25 Urine Protein 3+ (Negative) A 01/15/25 17:25 Urine Glucose (UA) Negative (Normal) 01/15/25 17:25 Urine Ketones Negative (Negative) 01/15/25 17:25 Urine Blood 1+ (Negative) A 01/15/25 17:25 Urine Nitrate Negative (Negative) 01/15/25 17:25 Urine Bilirubin Negative (Negative) 01/15/25 17:25 Urine Urobilinogen 0.2 mg/dL (Negative) 01/15/25 17:25 Ur Leukocyte Esterase Negative (Negative) 01/15/25 17:25 Urine RBC 0-2 /hpf (0-2) 01/15/25 17:25 Urine WBC 0-5 /hpf (0-5) 01/15/25 17:25 Ur Squamous Epith Cells 0-5 /hpf (0-5) 01/15/25 17:25 Amorphous Sediment 1+ /hpf 01/15/25 17:25 Urine Bacteria None seen /hpf (NONE) 01/15/25 17: Hyaline Casts 50.46 /lpf 01/15/25 17:25 Fine Granular Casts 0-4 /lpf H 01/15/25 17:25 Hep Bs Antigen Non-reactive (Nonreactive) 01/15/25 05:30 Hep Bs Antibody < 3.5 (11.5-1000) L 01/15/25 05:30 Hepatitis C Antibody Non-reactive (Nonreactive) 01/15/25 05:30 Influenza A (PCR) Negative (Negative) 01/15/25 05:30 Influenza Type B (PCR) Negative (Negative) 01/15/25 05:30 RSV (PCR) Negative (Negative) 01/15/25 05:30 SARS-CoV-2 (PCR) Negative (Negative) 01/15/25 05:30 Blood Type A Positive 01/18/25 06:23 Rho(D) Type Rh positive 01/18/25 06:23 Antibody Screen Negative 01/18/25 06:23 Crossmatch See Detail 01/18/25 06:23 A&P Assessment and plan (1) Elevated troponin: Continue on the current treatment. May consider further cardiac workup as an outpatient (2) Acute on chronic diastolic (congestive) heart failure: The heart failure seems to be fairly compensated at this time. May continue on the dialysis as per the nephrology (3) Acute on chronic anemia: Hemoglobin seems to be remaining stable after the transfusion (4) Hyperlipidemia: May continue on the current management. Qualifiers: Hyperlipidemia type: mixed hyperlipidemia Qualified Code(s): E78.2 - Mixed hyperlipidemia (5) Essential hypertension: The blood pressure is under control at this time. May continue on the current measures (6) Cannabis dependence, uncomplicated: Has not been taking cannabis for the last couple of weeks, as per patient (7) CKD (chronic kidney disease), stage V: On hemodialysis. Continue management as per nephrology (8) Bipolar II disorder: Management as per the primary (9) Edema, peripheral: Seems to be responding to the dialysis appropriately Plan Continue on the current measures. The overall cardiovascular status seems to be stable. PDMP PDMP Reviewed: Not Reviewed Attestations Medical Necessity Statement*: Deferred to the primary Coding Level of Care Code Acute Code for Chg Fwd Diagnoses Elevated troponin R79.89 Acute on chronic diastolic (congestive) heart failure I50.33 Acute on chronic anemia D64.9 Mixed hyperlipidemia E78.2 Hyperlipidemia type: mixed hyperlipidemia Essential hypertension I10 Cannabis dependence, uncomplicated F12.20 CKD (chronic kidney disease), stage V N18.5 Bipolar II disorder F31.81 Edema, peripheral R60.0
[2025-01-22 16:38] LABS: Glucose Point of Care 182 mg/dL (70-110)
[2025-01-22] MEDS: divalproex DR 250 mg Tablet PO (16:55)
[2025-01-22] MEDS: heparin, porcine 1,000 unit/mL INJ 10 mL 10000 UNIT INTRACATH (16:55)
[2025-01-22] MEDS: heparin, porcine 1,000 unit/mL INJ 10 mL 1000 UNIT IV (16:55)
[2025-01-22 20:08] LABS: Glucose Point of Care 206 mg/dL (70-110)
[2025-01-22] MEDS: ALPRAZolam 0.5 mg Tablet PO (22:53)
--- NOTE | 2025-01-22 22:57 | PC.NURSE ---
Pt agitated because he was feeling tired after dialysis. This RN explains that dialysis can cause patient to become tired. During rounds, pt claims to hit call light for Xanax; however, call light was never noted to go off. Patient claims that we turned off call light. Patient tells me that he does want Xanax, but says RN is not able to be around him. This RN states that I will go get a Xanax for him. Pt states that because of delayed Xanax he would like to talk to the charge nurse. Patient states, if I wanted you to stick your hand up my ass, its a job, you do it. RAMO Renee notified.
--- NOTE | 2025-01-22 23:10 | PC.NURSE ---
Due to previous altercations with nursing staff and/or having the maximum number of patients, this RN will continue cares for patient.
[2025-01-23] VITALS (14 sets, daily range): BP systolic 168–198; BP diastolic 83–96; PULSE 68–89; RESP 16–20; TEMP 36.5–36.9; O2SAT 93–98
[2025-01-23] MEDS: albuterol 2.5 mg/3 mL Neb INHALATION ×4 (00:26→13:52)
--- NOTE | 2025-01-23 04:02 | PC.NURSE ---
RN rounds on patient by looking around corner. No s/sx of distress noted.
--- NOTE | 2025-01-23 05:32 | PC.NURSE ---
Approx. 2300 patient care RN stated that the pt wanted to speak with the charge nurse. Non Destructive Evaluation Technician to talk to pt, he asked whats going on with the staff here , asked patient to clarify. Pt said that he was told that no one wanted to care for him and that it needs to be fixed from the top . Pointed out that we were in fact caring for the patient despite many altercations with multiple staff. Pt continued to try and argue with policy writer so this nurse walked out of the room.
--- NOTE | 2025-01-23 06:21 | PC.NURSE ---
Pt resting peacefully with eyes closed. Ensuring patient gets adequate rest, and minimizing behaviors, 0700 medication delayed for dayshift nurse. OK'd by charge nurse, RAMO Renee.
--- NOTE | 2025-01-23 06:38 | PC.NURSE ---
Pt requests respiratory for tx, RN notifies respiratory therapist.
[2025-01-23 07:17] LABS: Glucose Point of Care 137 mg/dL (70-110)
--- NOTE | 2025-01-23 08:16 | P.PN_ITS ---
Subjective 2 Subjective: no new complaints Medications: Reviewed: Yes Vitals/I&O/Wt Last Vital Signs Temp 97.7 F 01/23/25 07:45 Pulse 81 01/23/25 07:45 Resp 16 01/23/25 07:45 BP 178/86 01/23/25 07:45 Pulse Ox 95 01/23/25 07:45 O2 Del Method Nasal Cannula 01/23/25 07:45 O2 Flow Rate 5 01/23/25 06:38 01/22/25 01/23/25 01/23/25 22:59 06:59 14:59 Intake Total 500 / 780 960 / 1740 480 / 480 Output Total 3757 / 3757 Balance -3257 / -2977 960 / 480 / 480 Weight last 48 hrs Weight 86.7 kg Weight 87.402 kg Weight 87.407 kg Physical Exam 2 Narrative: Vital signs noted. HEENT normocephalic atraumatic. Neck is supple no JVP. Rt IJ PC Lungs- improved air movement b/l Heart regular positive S1-S2. Abdomen is soft positive bowel sounds. Extremities decreased bilateral edema scrotal edema. Neuro awake alert oriented x 3 and no asterixis Data 01/22/25 08:05 01/22/25 08:05 A&P Assessment and plan (1) End-stage renal disease (ESRD): now HD dependent Plan 59-year-old gentleman with diabetes obesity hypertension grade 2 out of 4 diastolic dysfunction progressive renal insufficiency with renal biopsy showing recent ATN and diabetic nephrosclerosis. 1. ESRD-the patient has progressed to end-stage renal disease. The patient initiated hemodialysis on 01-16 and s/p HD yesterday Next HD tomoorrow -Please use furosemide on non dialysis days. 2. Anemia- iron sat of 22%, ferritin of 129. s/p IV Iron , YANCY with HD 3. Renal bone mineral metabolism Phosphorus is improving. PTH is 201. Vitamin D is undetectable. Start vitamin D replacement. 4. Blood pressure now low to normal. 5. Elevated BNP due to combination of acute on chronic heart failure with preserved EF exacerbation and from diabetic nephrosclerosis progressing to ESRD. The plan was discussed in detail with the patient and his behavioral health reporting process consultant. Appreciate psychiatry evaluation. The patient was seen and examined with the aid of a nurse using audiovisual equipment. The patient consents to telehealth and to hemodialysis and will attempt to behave appropriately on dialysis. PDMP PDMP Reviewed: Not Reviewed Attestations 2 Medical Necessity Statement*: per albaro Coding Level of Care Code Acute Code for Chg Fwd Diagnoses End-stage renal disease (ESRD) N18.6
[2025-01-23] MEDS: b-complex-vitamin c Tablet 1 EACH PO (08:25)
[2025-01-23] MEDS: sevelamer 800 mg Tablet PO ×3 (08:25→17:24)
[2025-01-23] MEDS: ergocalciferol (vitamin D2) 50,000 Unit Capsule 50000 UNIT PO (08:25)
[2025-01-23] MEDS: aspirin 81 mg EC Tablet PO (08:25)
[2025-01-23] MEDS: isosorbide mononitrate ER 30 mg Tablet PO (08:25)
[2025-01-23] MEDS: metoprolol tartrate 50 mg Tablet PO ×2 (08:25→20:07)
[2025-01-23] MEDS: buPROPion XL (24 HR) 150 mg Tablet PO (08:25)
[2025-01-23] MEDS: ezetimibe 10 mg Tablet PO (08:25)
[2025-01-23] MEDS: losartan 50 mg Tablet 25 MG PO (08:25)
[2025-01-23] MEDS: fluconazole 100 mg Tablet 200 MG PO (08:25)
[2025-01-23] MEDS: tamsulosin 0.4 mg Capsule PO (08:25)
[2025-01-23 11:00] LABS: Glucose Point of Care 176 mg/dL (70-110)
[2025-01-23] MEDS: pantoprazole 40 mg SDV IVP ×2 (11:10→22:49)
[2025-01-23] MEDS: insulin lispro 100 unit/1 mL SUBCUT ×3 (11:10→21:13)
--- NOTE | 2025-01-23 11:47 | PC.SOCIAL ---
IMM Update pg 2 of IMM updated and reviewed w/ patient. Copy provided and copy dated initialed and placed in chart.
--- NOTE | 2025-01-23 12:57 | PM.PN ---
Subjective Subjective: 59-year-old male with stage V CKD, HFpEF, chronic hypoxic respiratory failure (on baseline 5L NC), HTN, DM2, anemia, and bipolar disorder who was initially admitted on 12/30 for acute on chronic volume overload and decompensated HFpEF. He improved with continuous IV diuresis and was discharged in stable condition on 01/13. He was readmitted on 01/15 with generalized weakness, worsening edema, and acute renal decompensation (Cr 8.0, BUN 77, AG 20.5), along with signs of volume overload and bilateral airspace disease. He displayed mood lability and difficulty engaging in care discussions, consistent with his known psychiatric history. He acknowledged likely progression to ESRD and agreed to initiate hemodialysis after nephrology and surgical consultation. A tunneled dialysis catheter was placed. Oxygen requirement remains stable at 5-6L NC. Troponin was elevated but stable attributed to demand ischemia in the setting of ESRD. Striping Machine Operator recommended continuation of aspirin, statin, and beta-coco. Hospital course has been further complicated by progressive anemia (Hb bj 6.5), requiring transfusion with improvement to 8.6. Iron studies and nutritional labs reviewed. Hemoccult positive; CT A/P without overt bleeding source. EGD and colonoscopy were recommended but declined by patient despite counseling. He expressed fear of the procedure and became verbally abusive during discussion to multiple physician prior to assuming care. Psychiatry evaluated and confirmed decisional capacity without evidence of acute psychiatric decompensation. He remains clinically stable, with improving volume status, adequate oxygenation on 5L NC.. He has limited social support and lives alone. Case management is coordinating outpatient dialysis and follow-up. Patient continues to demonstrate significant barriers to care related to behavioral concerns and lack of engagement with medical recommendations 01/22 patient stated he was feeling markedly better today. No fever, chills, nausea or vomiting. Oxygen was weaned to 4l via NC. 01/23 Stated he was feeling weak however no other new complaints. He was restated on aspirin yesterday. No bleeding episode reported. Is agreeable to work with PT and ambulate today. Medications: Reviewed: Yes Medication Review Details: Current Medications Acetaminophen (Acetaminophen 325 Mg Tablet) 650 mg PO Q6H PRN PRN Reason: Mild/Mod Pain Or Temp >/= 101 Albuterol Sulfate (Albuterol 2.5 Mg/3 Ml Neb) 2.5 mg INHALATION Q4H PRN PRN Reason: Shortness Of Breath Last Admin: 01/19/25 00:06 Dose: 2.5 mg Alprazolam (Alprazolam 0.5 Mg Tablet) 0.5 mg PO ONCE PRN PRN Reason: anxiety Aspirin (Aspirin 81 Mg Ec Tablet) 81 mg PO DAILY [facility] Last Admin: 01/18/25 09:30 Dose: 81 mg Atorvastatin Calcium (Atorvastatin 40 Mg Tablet) 80 mg PO QPM [facility] Last Admin: 01/18/25 18:03 Dose: Not Given Bupropion HCl (Bupropion Xl (24 Hr) 150 Mg Tablet) 150 mg PO DAILY [facility] Last Admin: 01/18/25 09:30 Dose: Not Given Camphor/Menthol/Phenol (Blistex Lip Oint 7 Gm Tube) 1 applic TOPICAL PRN PRN PRN Reason: DRYNESS Last Admin: 01/15/25 21:52 Dose: 1 applic Divalproex Sodium (Divalproex Dr 250 Mg Tablet) 250 mg PO 1900 [facility] Last Admin: 01/18/25 18:08 Dose: 250 mg Ezetimibe (Ezetimibe 10 Mg Tablet) 10 mg PO DAILY [facility] Last Admin: 01/18/25 09:31 Dose: 10 mg Ergocalciferol (Ergocalciferol (Vitamin D2) 50,000 Unit Capsule) 50,000 unit PO Q7D [facility] Last Admin: 01/16/25 13:32 Dose: 50,000 unit Fluconazole (Fluconazole 100 Mg Tablet) 200 mg PO DAILY [facility] Last Admin: 01/18/25 09:31 Dose: 200 mg Glucagon (Glucagon 1 Mg/Ml Kit 1 Ml) 1 mg IM ONCE PRN; Protocol PRN Reason: Adult Acute Hypoglycemia Nursing Prot. Heparin Sodium (Porcine) (Heparin 5,000 Unit/Ml Inj 1 Ml) 5,000 unit SUBCUT Q12H [facility] Last Admin: 01/18/25 22:19 Dose: 5,000 unit Dextrose (D5w) 500 mls @ 0 mls/hr IV ONCE PRN; Protocol PRN Reason: Adult Acute Hypoglycemia Prot Dextrose (D10w) 125 mls @ 750 mls/hr IV PRN PRN; Protocol PRN Reason: Adult Acute Hypoglycemia Nursing Protocol Dextrose (D10w) 250 mls @ 1,000 mls/hr IV PRN PRN; Protocol PRN Reason: Adult Acute Hypoglycemia Nursing Protocol Ferric Sodium Gluconate 125 mg (/ Sodium Chloride) 110 mls @ 110 mls/hr IV Q24H [facility] Stop: 01/24/25 11:59 Last Infusion: 01/18/25 16:00 Dose: Infused Insulin Human Lispro (Insulin Lispro 100 Unit/1 Ml) 0 unit SUBCUT WM&BEDTIME EVELIO; Protocol Last Admin: 01/19/25 07:22 Dose: Not Given Isosorbide Mononitrate (Isosorbide Mononitrate Er 30 Mg Tablet) 30 mg PO DAILY [facility] Last Admin: 01/18/25 09:32 Dose: 30 mg Losartan Potassium (Losartan 50 Mg Tablet) 25 mg PO DAILY [facility] Last Admin: 01/18/25 09:30 Dose: 25 mg Metoprolol Tartrate (Metoprolol Tartrate 50 Mg Tablet) 50 mg PO BID@0900,2100 [facility] Last Admin: 01/18/25 21:08 Dose: Not Given Multivitamins (O-Wsqyhrh-Moxmsqn C Tablet) 1 each PO DAILY [facility] Last Admin: 01/18/25 09:31 Dose: 1 each Oxycodone/Acetaminophen (Oxycodone-Apap 5-325 Mg Tablet) 1 tab PO Q4H PRN PRN Reason: Severe Pain Pantoprazole Sodium (Pantoprazole Dr 40 Mg Tablet) 40 mg PO DAILY [facility] Last Admin: 01/18/25 09:31 Dose: 40 mg Sevelamer Carbonate (Sevelamer 800 Mg Tablet) 800 mg PO TIDAC [facility] Last Admin: 01/19/25 05:58 Dose: 800 mg Sodium Chloride (Saline Nasal [place] 44ml Btl) 1 spray NASAL PRN PRN PRN Reason: DRYNESS Last Admin: 01/18/25 21:21 Dose: 1 spray Tamsulosin HCl (Tamsulosin 0.4 Mg Capsule) 0.4 mg PO DAILY [facility] Last Admin: 01/18/25 09:31 Dose: 0.4 mg Vitals/I&O/Wt Last Vital Signs Temp 98.0 F 01/23/25 11:23 Pulse 72 01/23/25 11:23 Resp 18 01/23/25 11:23 BP 169/87 01/23/25 11:23 Pulse Ox 95 01/23/25 11:23 O2 Del Method Nasal Cannula 01/23/25 11:23 O2 Flow Rate 4.5 01/23/25 10:00 01/22/25 01/23/25 01/23/25 22:59 06:59 14:59 Intake Total 500 / 780 960 / 1740 960 / 960 Output Total 3757 / 3757 Balance -3257 / -2977 / 960 / 960 Weight last 48 hrs Weight 86.7 kg Weight 87.402 kg Weight 87.407 kg Physical Exam Narrative: General: No acute distress, AO x3 HEENT: PERRLA, pupils bilaterally equal and reactive, pallors not present Did not allow rest of the exam Neuro: No focal deficits, no facial deformity, AO x3, power 5/5 in all limbs Data 01/22/25 08:05 01/22/25 08:05 A&P Assessment and plan (1) End-stage renal disease (ESRD): now HD dependent Plan 1. End-Stage Renal Disease CKD has progressed to ESRD; biopsy revealed nodular diabetic glomerulosclerosis Creatinine peaked at 8.0, BUN 77. Initiated hemodialysis on 01/16 during current admission Likely to transition to a //Tue outpatient dialysis schedule upon discharge. Case managment assisting on arranging outpatient HD [place] 800 mg TIDAC Plan: Proceed with inpatient hemodialysis as per nephrology Monitor electrolytes, renal function, and fluid status closely. Coordinate with case management and nephrology for transition to outpatient HD post-discharge (anticipated //Tue schedule). 2. Decompensated Heart Failure with Preserved Ejection Fraction (HFpEF) / Acute on chronic respiratory failure with hypoxemia / Elevated troponin suspected demand ischemia Presented with worsening dyspnea, LE edema, and bilateral airspace disease with small pleural effusions. Persistent symptoms with current O2 requirement of 5L nasal cannula. BNP elevated, likely multifactorial from chronic HFpEF and volume overload in ESRD. Troponins elevated Striping Machine Operator consulted and recommended continuation of medical therapy. Plan: Continue fluid restriction Continue Metoprolol 50 mg BID and fluid management with HD Aspirin 81 mg daily(restarted on ), lipitor 80 mg daily(Held- unclear as to why this was held), imdur 30 mg daily and losartan 25 mg daily and zetia 10 mg po daily Oxygen weaned to 4l today - has been between 4-5L Monitor daily weights and fluid balance. No need for further serial troponins unless symptoms change. Has oxygen set up aslready at home 3 Anemia Hemoglobin dropped to 6.5, improved to 8.6 post-transfusion. Hemoglobin now 9.20. Surgery was consulted and according to surgeon patient has refused EGD/Colonoscpy. No new labs today. Periodically checking given no active bleeding. Positive hemoccult test In setting of ESRD Plan: Continue iron supplementation (IV iron) - ordered daily until Surgery consulted. Patient declined EGD and colonoscopy. Aspirin was restarted on Heparin for dvt prophylaxis has been held. If Hgb remains stable will resume heparin for dvt ppx as well PDMP PDMP Reviewed: Not Reviewed Attestations Medical Necessity Statement*: disposition planning, needs set up for outpatient dialysis, general surgery assessment for endoscopic evaluation Coding Level of Care Code Acute Code for Chg Fwd Diagnoses End-stage renal disease (ESRD) N18.6
--- NOTE | 2025-01-23 14:58 | PC.NURSE ---
Pt states his PCP took him off of Wellbutrin. This nurse notified Dr. Gu. Wellbutrin has now been discontinued.
[2025-01-23] MEDS: hyDRALAzine 20 mg/mL INJ 1 mL 10 MG IVP ×2 (16:15→23:57)
[2025-01-23 17:00] LABS: Glucose Point of Care 209 mg/dL (70-110)
[2025-01-23] MEDS: divalproex DR 250 mg Tablet PO (17:24)
[2025-01-23 20:12] LABS: Glucose Point of Care 204 mg/dL (70-110)
[2025-01-24] VITALS (12 sets, daily range): BP systolic 149–189; BP diastolic 80–92; PULSE 73–89; RESP 16–19; TEMP 36.4–37.1; O2SAT 92–97
[2025-01-24] MEDS: albuterol 2.5 mg/3 mL Neb INHALATION ×3 (03:37→22:25)
[2025-01-24] MEDS: ALPRAZolam 0.5 mg Tablet PO (03:51)
[2025-01-24] MEDS: sevelamer 800 mg Tablet PO ×3 (05:49→17:07)
[2025-01-24 06:41] LABS: Glucose Point of Care 160 mg/dL (70-110)
[2025-01-24] MEDS: insulin lispro 100 unit/1 mL SUBCUT ×3 (07:52→20:36)
[2025-01-24] MEDS: losartan 50 mg Tablet 25 MG PO (07:53)
[2025-01-24] MEDS: b-complex-vitamin c Tablet 1 EACH PO (07:53)
[2025-01-24] MEDS: fluconazole 100 mg Tablet 200 MG PO (07:53)
[2025-01-24] MEDS: isosorbide mononitrate ER 30 mg Tablet PO (07:53)
[2025-01-24] MEDS: tamsulosin 0.4 mg Capsule PO (07:54)
[2025-01-24] MEDS: aspirin 81 mg EC Tablet PO (07:54)
[2025-01-24] MEDS: metoprolol tartrate 50 mg Tablet PO ×2 (08:00→20:37)
--- NOTE | 2025-01-24 08:46 | PM.PN ---
Subjective Subjective: No new symptoms. Continues to get the dialysis, 3 times a week. No chest pain. Shortness of breath significantly improved. The swelling of the lower extremities and the scrotum also has significantly improved Medications: Medication Review Details: Current Medications Acetaminophen (Acetaminophen 325 Mg Tablet) 650 mg PO Q6H PRN PRN Reason: Mild/Mod Pain Or Temp >/= 101 Albuterol Sulfate (Albuterol 2.5 Mg/3 Ml Neb) 2.5 mg INHALATION Q4H PRN PRN Reason: Shortness Of Breath Last Admin: 01/24/25 08:38 Dose: 2.5 mg Alprazolam (Alprazolam 0.5 Mg Tablet) 0.5 mg PO BEDTIME PRN PRN Reason: ANXIETY Last Admin: 01/24/25 03:51 Dose: 0.5 mg Aspirin (Aspirin 81 Mg Ec Tablet) 81 mg PO DAILY [facility] Last Admin: 01/24/25 07:54 Dose: 81 mg Atorvastatin Calcium (Atorvastatin 40 Mg Tablet) 80 mg PO QPM [facility] Last Admin: 01/19/25 17:24 Dose: Not Given Camphor/Menthol/Phenol (Blistex Lip Oint 7 Gm Tube) 1 applic TOPICAL PRN PRN PRN Reason: DRYNESS Last Admin: 01/15/25 21:52 Dose: 1 applic Divalproex Sodium (Divalproex Dr 250 Mg Tablet) 250 mg PO 1900 [facility] Last Admin: 01/23/25 17:24 Dose: 250 mg Ezetimibe (Ezetimibe 10 Mg Tablet) 10 mg PO DAILY [facility] Last Admin: 01/24/25 07:56 Dose: Not Given Ergocalciferol (Ergocalciferol (Vitamin D2) 50,000 Unit Capsule) 50,000 unit PO Q7D [facility] Last Admin: 01/23/25 08:25 Dose: 50,000 unit Fluconazole (Fluconazole 100 Mg Tablet) 200 mg PO DAILY [facility] Last Admin: 01/24/25 07:53 Dose: 200 mg Glucagon (Glucagon 1 Mg/Ml Kit 1 Ml) 1 mg IM ONCE PRN; Protocol PRN Reason: Adult Acute Hypoglycemia Nursing Prot. Guaifenesin (Guaifenesin 100 Mg/5 Ml Udc 10 Ml) 200 mg PO Q4H PRN PRN Reason: COUGH AND CONGESTION Last Admin: 01/20/25 19:49 Dose: 200 mg Heparin Sodium (Porcine) (Heparin 5,000 Unit/Ml Inj 1 Ml) 5,000 unit SUBCUT Q12H [facility] Last Admin: 01/19/25 21:45 Dose: Not Given Hydralazine HCl (Hydralazine 20 Mg/Ml Inj 1 Ml) 10 mg IVP Q4H PRN PRN Reason: HYPERTENSION Last Admin: 01/23/25 23:57 Dose: 10 mg Dextrose (D5w) 500 mls @ 0 mls/hr IV ONCE PRN; Protocol PRN Reason: Adult Acute Hypoglycemia Prot Dextrose (D10w) 125 mls @ 750 mls/hr IV PRN PRN; Protocol PRN Reason: Adult Acute Hypoglycemia Nursing Protocol Dextrose (D10w) 250 mls @ 1,000 mls/hr IV PRN PRN; Protocol PRN Reason: Adult Acute Hypoglycemia Nursing Protocol Sodium Chloride (Sodium Chloride 0.9%) 1,000 mls @ 0 mls/hr IV .Q0M PRN PRN Reason: hypotension or symptomatic Albumin Human (Albumin) 12.5 gm in 50 mls @ 60 mls/hr IV PRN PRN PRN Reason: Hypotension and/or symptomatic Ferric Sodium Gluconate 125 mg (/ Sodium Chloride) 110 mls @ 110 mls/hr IV Q24H [facility] Stop: 01/25/25 11:59 Insulin Human Lispro (Insulin Lispro 100 Unit/1 Ml) 0 unit SUBCUT WM&BEDTIME [facility]; Protocol Last Admin: 01/24/25 07:52 Dose: 2 unit Isosorbide Mononitrate (Isosorbide Mononitrate Er 30 Mg Tablet) 30 mg PO DAILY [facility] Last Admin: 01/24/25 07:53 Dose: 30 mg Losartan Potassium (Losartan 50 Mg Tablet) 25 mg PO DAILY [facility] Last Admin: 01/24/25 07:53 Dose: 25 mg Metoprolol Tartrate (Metoprolol Tartrate 50 Mg Tablet) 50 mg PO BID@0900,2100 [facility] Last Admin: 01/24/25 08:00 Dose: 50 mg Multivitamins (S-Zjszkup-Ytdyrme C Tablet) 1 each PO DAILY [facility] Last Admin: 01/24/25 07:53 Dose: 1 each Oxycodone/Acetaminophen (Oxycodone-Apap 5-325 Mg Tablet) 1 tab PO Q4H PRN PRN Reason: Severe Pain Last Admin: 01/21/25 17:38 Dose: 1 tab Pantoprazole Sodium (Pantoprazole 40 Mg Sdv) 40 mg IVP Q12H [facility] Last Admin: 01/23/25 22:49 Dose: 40 mg Sevelamer Carbonate (Sevelamer 800 Mg Tablet) 800 mg PO TIDAC [facility] Last Admin: 01/24/25 05:49 Dose: 800 mg Sodium Chloride (Saline Nasal [place] 44ml Btl) 1 spray NASAL PRN PRN PRN Reason: DRYNESS Last Admin: 01/18/25 21:21 Dose: 1 spray Tamsulosin HCl (Tamsulosin 0.4 Mg Capsule) 0.4 mg PO DAILY [facility] Last Admin: 01/24/25 07:54 Dose: 0.4 mg Vitals/I&O/Wt Last Vital Signs Temp 98.0 F 01/24/25 04:00 Pulse 82 01/24/25 08:39 Resp 18 01/24/25 08:39 BP 165/80 01/24/25 07:53 Pulse Ox 96 01/24/25 08:39 O2 Del Method Oxymask 01/24/25 08:39 O2 Flow Rate 5 01/24/25 08:39 01/23/25 01/24/25 01/24/25 22:59 06:59 14:59 Intake Total 1400 / 2360 220 / 2580 Balance 1400 / 2360 220 / 2580 Weight last 48 hrs Weight 194 lb 11.2 oz Weight 194 lb 6.4 oz Weight 191 lb 2.252 oz Physical Exam Narrative: GENERAL: The patient is alert and oriented times three. Not in any acute distress. HEENT: No significant pallor, icterus or lymphadenopathy.Oral cavity: There are no mucous membrane lesions. NECK: Trachea appears to be central. No masses noted. No JVD or thyromegaly appreciated. RESPIRATORY: Chest is symmetrical. No intercostals muscle retraction or any accessory muscle activation. There is no chest wall tenderness. Breath sounds are heard bilaterally. No rales or rhonchi heard. No evidence of any consolidation. BREASTS: Deferred. HEART: The heart sounds are normal. No S3 or S4. Short systolic murmur at the lower sternal border. No diastolic murmurs. No pericardial rub ABDOMEN: No vessel pulsations or distention. No tenderness. No organomegaly appreciated. Bowel sounds are normally heard. : Deferred. RECTAL: Deferred. LYMPHATIC: No lymphadenopathy noted in the neck. EXTREMITIES: 1+ edema both lower extremities. No cyanosis. Peripheral pulses are palpable and fairly good volume. MUSCULOSKELETAL: No acute joint deformities or swelling SKIN: There are no significant rashes or ecchymosis NEUROPSYCHIATRIC: The patient is alert and oriented x3. Appears to be in a good mood. No tremors or rigidity noted. Data 01/22/25 08:05 01/22/25 08:05 Other Labs: Laboratory Last Values WBC 11.90 10^3/uL (3.29-11.43) H 01/22/25 08:05 RBC 3.22 10^6/uL (3.85-5.65) L 01/22/25 08:05 Hgb 9.20 g/dL (11.27-16.99) L 01/22/25 08:05 Hct 30.6 % (37-53) L 01/22/25 08:05 MCV 95.0 fl (82-101) 01/22/25 08:05 MCH 28.6 pg (27-33) 01/22/25 08:05 MCHC 30.1 g/dL (30-55) 01/22/25 08:05 RDW 14.0 % (12.1-15.1) 01/22/25 08:05 Plt Count 355 10^3/cmm (157-399) 01/22/25 08:05 MPV 9.5 fL (7.4-10.4) 01/22/25 08:05 Neut % (Auto) 72.6 % 01/22/25 08:05 Lymph % (Auto) 13.7 % 01/22/25 08:05 [place] % (Auto) 8.3 % 01/22/25 08:05 Eos % (Auto) 2.9 % 01/22/25 08:05 Baso % (Auto) 1.7 % 01/22/25 08:05 Neut # (Auto) 8.63 10^3/uL (1.8-7.7) H 01/22/25 08:05 Lymph # (Auto) 1.6 10^3/uL (0.8-4.8) 01/22/25 08:05 [place] # (Auto) 1.0 10^3/uL (0.2-0.9) H 01/22/25 08:05 Eos # (Auto) 0.4 10^3/uL (0.0-0.8) 01/22/25 08:05 Baso # (Auto) 0.2 10^3/uL (0.0-0.1) H 01/22/25 08:05 Nucleated RBC % (auto) 0 % 01/22/25 08:05 Nucleated RBCs # 0.0 /100WBC 01/22/25 08:05 Sodium 134 mmol/L (136-145) L 01/22/25 08:05 Potassium 4.4 mmol/L (3.5-5.1) 01/22/25 08:05 Chloride 99 mmol/L (98-107) 01/22/25 08:05 Carbon Dioxide 24 mmol/L (22-29) 01/22/25 08:05 Anion Gap 15.4 (5-19) 01/22/25 08:05 BUN 28 mg/dL (6-20) H 01/22/25 08:05 Creatinine 3.1 mg/dL (0.7-1.2) H 01/22/25 08:05 GFR Calculation 20.8 mL/min (90-130) L 01/22/25 08:05 Glucose 152 mg/dL (65-115) H 01/22/25 08:05 POC Glucose 160 mg/dL (70-110) H 01/24/25 06:23 Calculated Osmolality 286 mOsm/kg (285-295) 01/22/25 08:05 Lactic Acid 0.8 mmol/L (0.5-2.2) 01/15/25 05:30 Uric Acid 10.0 mg/dL (3.4-7.0) H 01/15/25 05:30 Calcium 8.1 mg/dL (8.5-10.5) L 01/22/25 08:05 Phosphorus 3.7 mg/dL (2.5-4.5) 01/21/25 07:51 Magnesium 1.9 mg/dL (1.7-2.3) 01/21/25 07:51 Iron 40 ug/dL (59-158) L 01/16/25 03:41 TIBC 179 mcg/dl 01/16/25 03:41 % Saturation 22.3 % (20-50) 01/16/25 03:41 Unsat Iron Binding 139 ug/dL (112-347) 01/16/25 03:41 Ferritin 129 ng/mL (30-400) 01/16/25 03:41 Total Bilirubin 0.2 mg/dL (0.15-1.2) 01/22/25 08:05 AST 18 U/L (0-40) 01/22/25 08:05 ALT 8 U/L (0-41) 01/22/25 08:05 Alkaline Phosphatase 106 U/L (40-130) 01/22/25 08:05 Troponin T Baseline 328 ng/L (0-15) H* 01/15/25 05:30 Troponin T 120 Minute 302.5 ng/L (0-15) H 01/15/25 07:42 Delta Troponin T -25.5 ABS# (0-10) L 01/15/25 07:42 Troponin T Hi Sens 6Hr 310.6 ng/L (0-15) H 01/15/25 11:30 Troponin T Hi Sens 6Hr Delta -17.4 ng/L (0-12) L 01/15/25 11:30 NT-Pro-B Natriuret Pep 23869 pg/mL (0-125) H 01/15/25 05:30 Total Protein 7.2 g/dL (6.6-8.7) 01/22/25 08:05 Albumin 3.2 g/dL (3.5-5.2) L 01/22/25 08:05 Globulin 4.0 g/dL (1.3-4.6) 01/22/25 08:05 25-OH Vitamin D Total 6 ng/mL (30-100) L 01/16/25 03:41 Procalcitonin 0.55 ng/mL (0-0.5) H 01/15/25 05:30 PTH Intact 201.7 pg/mL (15-65) H 01/16/25 03:41 Calcium (PTH Intact) 7.3 mg/dL (8.5-10.5) L 01/16/25 03:41 Urine Color Yellow (Yellow) 01/15/25 17:25 Urine Appearance Clear (CLEAR) 01/15/25 17:25 Urine pH 5.0 (5-7) 01/15/25 17:25 Ur Specific [place] 1.013 (1.005-1.030) 01/15/25 17:25 Urine Protein 3+ (Negative) A 01/15/25 17:25 Urine Glucose (UA) Negative (Normal) 01/15/25 17:25 Urine Ketones Negative (Negative) 01/15/25 17:25 Urine Blood 1+ (Negative) A 01/15/25 17:25 Urine Nitrate Negative (Negative) 01/15/25 17:25 Urine Bilirubin Negative (Negative) 01/15/25 17: Urine Urobilinogen 0.2 mg/dL (Negative) 01/15/25 17:25 Ur Leukocyte Esterase Negative (Negative) 01/15/25 17:25 Urine RBC 0-2 /hpf (0-2) 01/15/25 17:25 Urine WBC 0-5 /hpf (0-5) 01/15/25 17:25 Ur Squamous Epith Cells 0-5 /hpf (0-5) 01/15/25 17:25 Amorphous Sediment 1+ /hpf 01/15/25 17:25 Urine Bacteria None seen /hpf (NONE) 01/15/25 17:25 Hyaline Casts 50.46 /lpf 01/15/25 17:25 Fine Granular Casts 0-4 /lpf H 01/15/25 17:25 Hep Bs Antigen Non-reactive (Nonreactive) 01/15/25 05:30 Hep Bs Antibody < 3.5 (11.5-1000) L 01/15/25 05:30 Hepatitis C Antibody Non-reactive (Nonreactive) 01/15/25 05:30 Influenza A (PCR) Negative (Negative) 01/15/25 05:30 Influenza Type B (PCR) Negative (Negative) 01/15/25 05:30 RSV (PCR) Negative (Negative) 01/15/25 05:30 SARS-CoV-2 (PCR) Negative (Negative) 01/15/25 05:30 Blood Type A Positive 01/18/25 06:23 Rho(D) Type Rh positive 01/18/25 06:23 Antibody Screen Negative 01/18/25 06:23 Crossmatch See Detail 01/18/25 06:23 A&P Assessment and plan (1) Elevated troponin: Continue on the current treatment. Most likely related to the renal failure. His troponin T has been consistently elevated since September of last year. He had an unremarkable Myocardial perfusion imaging in December of this year. so at this point, I may hold off on any further cardiac workup (2) Acute on chronic diastolic (congestive) heart failure: The heart failure seems to be fairly compensated at this time. May continue on the dialysis as per the nephrology (3) CKD (chronic kidney disease), stage V: On hemodialysis. Continue management as per nephrology (4) Acute on chronic anemia: Hemoglobin seems to be remaining stable after the transfusion (5) Hyperlipidemia: May continue on the current management. Qualifiers: Hyperlipidemia type: mixed hyperlipidemia Qualified Code(s): E78.2 - Mixed hyperlipidemia (6) Essential hypertension: The blood pressure is under control at this time. May continue on the current measures (7) Cannabis dependence, uncomplicated: Has not been taking cannabis for the last couple of weeks, as per patient (8) Bipolar II disorder: Management as per the primary (9) Edema, peripheral: Seems to be responding to the dialysis appropriately Plan since the patient's overall cardiovascular status seems to be stable, I may sign off at this time. Feel free to contact me with any further questions regarding his cardiac status PDMP PDMP Reviewed: Not Reviewed Attestations Medical Necessity Statement*: disposition as per the primary Coding Level of Care Code 12947 Diagnoses Elevated troponin R79.89 Acute on chronic diastolic (congestive) heart failure I50.33 CKD (chronic kidney disease), stage V N18.5 Acute on chronic anemia D64.9 Mixed hyperlipidemia E78.2 Hyperlipidemia type: mixed hyperlipidemia Essential hypertension I10 Cannabis dependence, uncomplicated F12.20 Bipolar II disorder F31.81 Edema, peripheral R60.0
[2025-01-24 10:46] LABS: Glucose Point of Care 115 mg/dL (70-110)
[2025-01-24] MEDS: pantoprazole 40 mg SDV IVP (13:00)
[2025-01-24] MEDS: ferric gluconate 125 MG in sodium chloride 0.9% (100 ml) 100 ML 110 MG IV (13:13)
--- NOTE | 2025-01-24 16:32 | P.PN_ITS ---
Subjective 2 Subjective: 59-year-old male with stage V CKD, HFpEF , chronic hypoxic respiratory failure (on baseline 5L NC), HTN, DM2, anemia, and bipolar disorder who was initially admitted on 12/30 for acute on chronic volume overload and decompensated HFpEF. He improved with continuous IV diuresis and was discharged in stable condition on 01/13. He was readmitted on 01/15 with generalized weakness, worsening edema, and acute renal decompensation (Cr 8.0, BUN 77, AG 20.5), along with signs of volume overload and bilateral airspace disease. He displayed mood lability and difficulty engaging in care discussions, consistent with his known psychiatric history. He acknowledged likely progression to ESRD and agreed to initiate hemodialysis after nephrology and surgical consultation. A tunneled dialysis catheter was placed. Oxygen requirement remains stable at 5-6L NC. Troponin was elevated but stable attributed to demand ischemia in the setting of ESRD. Grey Tender recommended continuation of aspirin, statin, and beta-coco. Hospital course has been further complicated by progressive anemia (Hb bj 6.5), requiring transfusion with improvement to 8.6. Iron studies and nutritional labs reviewed. Hemoccult positive; CT A/P without overt bleeding source. EGD and colonoscopy were recommended but declined by patient despite counseling. He expressed fear of the procedure and became verbally abusive during discussion to multiple physician prior to assuming care. Psychiatry evaluated and confirmed decisional capacity without evidence of acute psychiatric decompensation. He remains clinically stable, with improving volume status, adequate oxygenation on 5L NC.. He has limited social support and lives alone. Case management is coordinating outpatient dialysis and follow-up. Patient continues to demonstrate significant barriers to care related to behavioral concerns and lack of engagement with medical recommendations 01/22 patient stated he was feeling markedly better today. No fever, chills, nausea or vomiting. Oxygen was weaned to 4l via NC. 01/23 Stated he was feeling weak however no other new complaints. He was restated on aspirin yesterday. No bleeding episode reported. Is agreeable to work with PT and ambulate today. 01/24 Seen in HD, was feeling tired. No new complaints. Still awaiting discharge HD arrangement Medications: Reviewed: Yes Medication Review Details: Current Medications Acetaminophen (Acetaminophen 325 Mg Tablet) 650 mg PO Q6H PRN PRN Reason: Mild/Mod Pain Or Temp >/= 101 Albuterol Sulfate (Albuterol 2.5 Mg/3 Ml Neb) 2.5 mg INHALATION Q4H PRN PRN Reason: Shortness Of Breath Last Admin: 01/19/25 00:06 Dose: 2.5 mg Alprazolam (Alprazolam 0.5 Mg Tablet) 0.5 mg PO ONCE PRN PRN Reason: anxiety Aspirin (Aspirin 81 Mg Ec Tablet) 81 mg PO DAILY [facility] Last Admin: 01/18/25 09:30 Dose: 81 mg Atorvastatin Calcium (Atorvastatin 40 Mg Tablet) 80 mg PO QPM [facility] Last Admin: 01/18/25 18:03 Dose: Not Given Bupropion HCl (Bupropion Xl (24 Hr) 150 Mg Tablet) 150 mg PO DAILY [facility] Last Admin: 01/18/25 09:30 Dose: Not Given Camphor/Menthol/Phenol (Blistex Lip Oint 7 Gm Tube) 1 applic TOPICAL PRN PRN PRN Reason: DRYNESS Last Admin: 01/15/25 21:52 Dose: 1 applic Divalproex Sodium (Divalproex Dr 250 Mg Tablet) 250 mg PO 1900 [facility] Last Admin: 01/18/25 18:08 Dose: 250 mg Ezetimibe (Ezetimibe 10 Mg Tablet) 10 mg PO DAILY [facility] Last Admin: 01/18/25 09:31 Dose: 10 mg Ergocalciferol (Ergocalciferol (Vitamin D2) 50,000 Unit Capsule) 50,000 unit PO Q7D [facility] Last Admin: 01/16/25 13:32 Dose: 50,000 unit Fluconazole (Fluconazole 100 Mg Tablet) 200 mg PO DAILY [facility] Last Admin: 01/18/25 09:31 Dose: 200 mg Glucagon (Glucagon 1 Mg/Ml Kit 1 Ml) 1 mg IM ONCE PRN; Protocol PRN Reason: Adult Acute Hypoglycemia Nursing Prot. Heparin Sodium (Porcine) (Heparin 5,000 Unit/Ml Inj 1 Ml) 5,000 unit SUBCUT Q12H [facility] Last Admin: 01/18/25 22:19 Dose: 5,000 unit Dextrose (D5w) 500 mls @ 0 mls/hr IV ONCE PRN; Protocol PRN Reason: Adult Acute Hypoglycemia Prot Dextrose (D10w) 125 mls @ 750 mls/hr IV PRN PRN; Protocol PRN Reason: Adult Acute Hypoglycemia Nursing Protocol Dextrose (D10w) 250 mls @ 1,000 mls/hr IV PRN PRN; Protocol PRN Reason: Adult Acute Hypoglycemia Nursing Protocol Ferric Sodium Gluconate 125 mg (/ Sodium Chloride) 110 mls @ 110 mls/hr IV Q24H [facility] Stop: 01/24/25 11:59 Last Infusion: 01/18/25 16:00 Dose: Infused Insulin Human Lispro (Insulin Lispro 100 Unit/1 Ml) 0 unit SUBCUT WM&BEDTIME EVELIO; Protocol Last Admin: 01/19/25 07:22 Dose: Not Given Isosorbide Mononitrate (Isosorbide Mononitrate Er 30 Mg Tablet) 30 mg PO DAILY [facility] Last Admin: 01/18/25 09:32 Dose: 30 mg Losartan Potassium (Losartan 50 Mg Tablet) 25 mg PO DAILY [facility] Last Admin: 01/18/25 09:30 Dose: 25 mg Metoprolol Tartrate (Metoprolol Tartrate 50 Mg Tablet) 50 mg PO BID@0900,2100 [facility] Last Admin: 01/18/25 21:08 Dose: Not Given Multivitamins (R-Uyxtliw-Zsueovm C Tablet) 1 each PO DAILY [facility] Last Admin: 01/18/25 09:31 Dose: 1 each Oxycodone/Acetaminophen (Oxycodone-Apap 5-325 Mg Tablet) 1 tab PO Q4H PRN PRN Reason: Severe Pain Pantoprazole Sodium (Pantoprazole Dr 40 Mg Tablet) 40 mg PO DAILY [facility] Last Admin: 01/18/25 09:31 Dose: 40 mg Sevelamer Carbonate (Sevelamer 800 Mg Tablet) 800 mg PO TIDAC [facility] Last Admin: 01/19/25 05:58 Dose: 800 mg Sodium Chloride (Saline Nasal [place] 44ml Btl) 1 spray NASAL PRN PRN PRN Reason: DRYNESS Last Admin: 01/18/25 21:21 Dose: 1 spray Tamsulosin HCl (Tamsulosin 0.4 Mg Capsule) 0.4 mg PO DAILY [facility] Last Admin: 01/18/25 09:31 Dose: 0.4 mg Vitals/I&O/Wt Last Vital Signs Temp 98.6 F 01/24/25 12:17 Pulse 81 01/24/25 15:52 Resp 16 01/24/25 15:52 BP 175/86 01/24/25 15:52 Pulse Ox 92 01/24/25 15:52 O2 Del Method Nasal Cannula 01/24/25 15:52 O2 Flow Rate 5 01/24/25 08:39 01/24/25 01/24/25 01/24/25 06:59 14:59 22:59 Intake Total 220 / 2580 551.333 / 551.333 Output Total 4000 / 4000 Balance 220 / 2580 -3448.667 / -3448.667 Weight last 48 hrs Weight 84.8 kg Weight 88.314 kg Weight 88.178 kg Weight 86.7 kg Physical Exam 2 Narrative: GENERAL: The patient is alert and oriented times three. Not in any acute distress. HEENT: No significant pallor, icterus or lymphadenopathy.Oral cavity: There are no mucous membrane lesions. NECK: Trachea appears to be central. No masses noted. No JVD or thyromegaly appreciated. RESPIRATORY: Chest is symmetrical. No intercostals muscle retraction or any accessory muscle activation. There is no chest wall tenderness. Breath sounds are heard bilaterally. No rales or rhonchi heard. No evidence of any consolidation. BREASTS: Deferred. HEART: The heart sounds are normal. No S3 or S4. Short systolic murmur at the lower sternal border. No diastolic murmurs. No pericardial rub ABDOMEN: No vessel pulsations or distention. No tenderness. No organomegaly appreciated. Bowel sounds are normally heard. : Deferred. RECTAL: Deferred. LYMPHATIC: No lymphadenopathy noted in the neck. EXTREMITIES: 1-2+ edema both lower extremities. No cyanosis. Peripheral pulses are palpable and fairly good volume. MUSCULOSKELETAL: No acute joint deformities or swelling SKIN: There are no significant rashes or ecchymosis NEUROPSYCHIATRIC: The patient is alert and oriented x3. Appears to be in a good mood. No tremors or rigidity noted. Data 01/22/25 08:05 01/22/25 08:05 A&P Assessment and plan (1) End-stage renal disease (ESRD): now HD dependent Plan 1. End-Stage Renal Disease * CKD has progressed to ESRD; biopsy revealed nodular diabetic glomerulosclerosis * Creatinine peaked at 8.0, BUN 77. * Initiated hemodialysis on 01/16 during current admission * Likely to transition to a //Tue outpatient dialysis schedule upon discharge. * Case managment assisting on arranging outpatient HD * Sevelemer 800 mg TIDAC Plan: Proceed with inpatient hemodialysis as per nephrology Monitor electrolytes, renal function, and fluid status closely. Coordinate with case management and nephrology for transition to outpatient HD post-discharge (anticipated //Tue schedule). - NO change to above management 2. Decompensated Heart Failure with Preserved Ejection Fraction (HFpEF) / Acute on chronic respiratory failure with hypoxemia / Elevated troponin suspected demand ischemia * Presented with worsening dyspnea, LE edema, and bilateral airspace disease with small pleural effusions. * Persistent symptoms with current O2 requirement of 5L nasal cannula. * BNP elevated, likely multifactorial from chronic HFpEF and volume overload in ESRD. * Troponins elevated * Grey Tender consulted and recommended continuation of medical therapy. Plan: Continue fluid restriction Continue Metoprolol 50 mg BID and fluid management with HD Aspirin 81 mg daily(restarted on ), lipitor 80 mg daily(Held- unclear as to why this was held), imdur 30 mg daily and losartan 25 mg daily and zetia 10 mg po daily Oxygen weaned to 4l today - has been between 4-5L Monitor daily weights and fluid balance. No need for further serial troponins unless symptoms change. Has oxygen set up already at home - No change to above management 3 Anemia * Hemoglobin dropped to 6.5, improved to 8.6 post-transfusion. Hemoglobin now 9.20. Surgery was consulted and according to surgeon patient has refused EGD/Colonoscpy. No new labs today. Periodically checking given no active bleeding. * Positive hemoccult test * In setting of ESRD Plan: Completed IV Iron. Hemoglobin has alfredo stable Surgery consulted. Patient declined EGD and colonoscopy. Aspirin was restarted on , no bleeding PDMP PDMP Reviewed: Not Reviewed Attestations 2 Medical Necessity Statement*: disposition planning, needs set up for outpatient dialysis, general surgery assessment for endoscopic evaluation Coding Level of Care Code Acute Code for Chg Fwd Diagnoses End-stage renal disease (ESRD) N18.6
[2025-01-24 17:05] LABS: Glucose Point of Care 245 mg/dL (70-110)
[2025-01-24] MEDS: pantoprazole DR 40 mg Tablet PO (17:07)
[2025-01-24] MEDS: divalproex DR 250 mg Tablet PO (17:07)
[2025-01-24 20:25] LABS: Glucose Point of Care 218 mg/dL (70-110)
--- NOTE | 2025-01-24 21:52 | P.PN_ITS ---
Subjective 2 Subjective: no new c/o Medications: Reviewed: Yes Vitals/I&O/Wt Last Vital Signs Temp 97.5 F L 01/24/25 19:47 Pulse 79 01/24/25 19:47 Resp 19 H 01/24/25 19:47 BP 187/92 01/24/25 19:47 Pulse Ox 97 01/24/25 19:47 O2 Del Method Nasal Cannula 01/24/25 19:47 O2 Flow Rate 3 01/24/25 19:47 01/24/25 01/24/25 01/24/25 06:59 14:59 22:59 Intake Total 220 / 2580 551.333 / 551.333 240 / 791.333 Output Total 4000 / 4000 Balance 220 / 2580 -3448.667 / -3448.667 240 / -3208.667 Weight last 48 hrs Weight 84.8 kg Weight 88.314 kg Weight 88.178 kg Physical Exam 2 Narrative: Vital signs noted. HEENT normocephalic atraumatic. Neck is supple no JVP. Rt IJ PC Lungs- improved air movement b/l Heart regular positive S1-S2. Abdomen is soft positive bowel sounds. Extremities decreased bilateral edema scrotal edema. Neuro awake alert oriented x 3 and no asterixis Data 01/22/25 08:05 01/22/25 08:05 A&P Assessment and plan (1) End-stage renal disease (ESRD): now HD dependent Plan 59-year-old gentleman with diabetes obesity hypertension grade 2 out of 4 diastolic dysfunction progressive renal insufficiency with renal biopsy showing recent ATN and diabetic nephrosclerosis. 1. ESRD-the patient has progressed to end-stage renal disease. The patient initiated hemodialysis on 01-16 and s/p HD yesterday Next HD today -Please use furosemide on non dialysis days. 2. Anemia- iron sat of 22%, ferritin of 129. s/p IV Iron , YANCY with HD 3. Renal bone mineral metabolism Phosphorus is improving. PTH is 201. Vitamin D is undetectable. Start vitamin D replacement. 4. Blood pressure now low to normal. 5. Elevated BNP due to combination of acute on chronic heart failure with preserved EF exacerbation and from diabetic nephrosclerosis progressing to ESRD. The plan was discussed in detail with the patient and his behavioral health pre owned sales consultant. Appreciate psychiatry evaluation. The patient was seen and examined with the aid of a nurse using audiovisual equipment. The patient consents to telehealth and to hemodialysis and will attempt to behave appropriately on dialysis. PDMP PDMP Reviewed: Not Reviewed Attestations 2 Medical Necessity Statement*: per medicine Coding Level of Care Code Acute Code for Chg Fwd Diagnoses End-stage renal disease (ESRD) N18.6
[2025-01-25] VITALS (12 sets, daily range): BP systolic 169–207; BP diastolic 84–95; PULSE 68–91; RESP 17–18; TEMP 36.5–36.7; O2SAT 86–98
--- NOTE | 2025-01-25 | PC.NURSE ---
pateints BP is 189/92. He does not have an IV asked doctor if we can something oral. He prescribed Do hydralazine 50 mg po tid
[2025-01-25] MEDS: hyDRALAzine 50 mg Tablet PO ×4 (00:45→21:30)
[2025-01-25] MEDS: albuterol 2.5 mg/3 mL Neb INHALATION ×3 (06:15→23:42)
[2025-01-25] MEDS: sevelamer 800 mg Tablet PO ×2 (06:25→15:55)
[2025-01-25 06:55] LABS: Glucose Point of Care 193 mg/dL (70-110)
--- NOTE | 2025-01-25 08:32 | P.PN_ITS ---
Subjective 2 Subjective: no new complaints Medications: Reviewed: Yes Vitals/I&O/Wt Last Vital Signs Temp 97.7 F 01/25/25 04:21 Pulse 91 01/25/25 08:00 Resp 17 01/25/25 08:00 BP 207/95 01/25/25 08:00 Pulse Ox 94 01/25/25 08:00 O2 Del Method Nasal Cannula 01/25/25 08:00 O2 Flow Rate 4 01/25/25 06:25 01/24/25 01/25/25 01/25/25 22:59 06:59 14:59 Intake Total 720 / 1271.333 240 / 1511.333 120 / 120 Balance 720 / -2728.667 240 / -2488.667 120 / 120 Weight last 48 hrs Weight 85.548 kg Weight 84.8 kg Weight 88.314 kg Weight 88.178 kg Physical Exam 2 Narrative: Vital signs noted. HEENT normocephalic atraumatic. Neck is supple no JVP. Rt IJ PC Lungs- improved air movement b/l Heart regular positive S1-S2. Abdomen is soft positive bowel sounds. Extremities decreased bilateral edema scrotal edema. Neuro awake alert oriented x 3 and no asterixis Data 01/22/25 08:05 01/22/25 08:05 A&P Assessment and plan (1) End-stage renal disease (ESRD): now HD dependent Plan 59-year-old gentleman with diabetes obesity hypertension grade 2 out of 4 diastolic dysfunction progressive renal insufficiency with renal biopsy showing recent ATN and diabetic nephrosclerosis. 1. ESRD-the patient has progressed to end-stage renal disease. The patient initiated hemodialysis on 01-16 and s/p HD yesterday Next HD tomorrow -Please use furosemide on non dialysis days. 2. Anemia- iron sat of 22%, ferritin of 129. s/p IV Iron , YANCY with HD 3. Renal bone mineral metabolism Phosphorus is improving. PTH is 201. Vitamin D is undetectable. Start vitamin D replacement. 4. Blood pressure now low to normal. 5. Elevated BNP due to combination of acute on chronic heart failure with preserved EF exacerbation and from diabetic nephrosclerosis progressing to ESRD. The plan was discussed in detail with the patient and his behavioral health party plan sales consultant. Appreciate psychiatry evaluation. The patient was seen and examined with the aid of a nurse using audiovisual equipment. The patient consents to telehealth and to hemodialysis and will attempt to behave appropriately on dialysis. PDMP PDMP Reviewed: Not Reviewed Attestations 2 Medical Necessity Statement*: per medicine Coding Level of Care Code Acute Code for Chg Fwd Diagnoses End-stage renal disease (ESRD) N18.6
[2025-01-25] MEDS: ezetimibe 10 mg Tablet PO (08:44)
[2025-01-25] MEDS: fluconazole 100 mg Tablet 200 MG PO (08:44)
[2025-01-25] MEDS: aspirin 81 mg EC Tablet PO (08:45)
[2025-01-25] MEDS: metoprolol tartrate 50 mg Tablet PO ×2 (08:45→21:30)
[2025-01-25] MEDS: b-complex-vitamin c Tablet 1 EACH PO (08:45)
[2025-01-25] MEDS: losartan 50 mg Tablet 25 MG PO (08:45)
[2025-01-25] MEDS: isosorbide mononitrate ER 30 mg Tablet PO (08:45)
[2025-01-25] MEDS: pantoprazole DR 40 mg Tablet PO ×2 (08:45→17:14)
[2025-01-25] MEDS: tamsulosin 0.4 mg Capsule PO (08:45)
[2025-01-25] MEDS: insulin lispro 100 unit/1 mL SUBCUT ×2 (08:47→17:15)
--- NOTE | 2025-01-25 10:16 | PC.SOCIAL ---
IMM Update pg 2 of IMM updated and reviewed w/ patient. Copy provided and copy dated, initialed and placed in chart.
--- NOTE | 2025-01-25 12:32 | P.PN_ITS ---
Subjective 2 Subjective: 59-year-old male with stage V CKD, HFpEF , chronic hypoxic respiratory failure (on baseline 5L NC), HTN, DM2, anemia, and bipolar disorder who was initially admitted on 12/30 for acute on chronic volume overload and decompensated HFpEF. He improved with continuous IV diuresis and was discharged in stable condition on 01/13. He was readmitted on 01/15 with generalized weakness, worsening edema, and acute renal decompensation (Cr 8.0, BUN 77, AG 20.5), along with signs of volume overload and bilateral airspace disease. He displayed mood lability and difficulty engaging in care discussions, consistent with his known psychiatric history. He acknowledged likely progression to ESRD and agreed to initiate hemodialysis after nephrology and surgical consultation. A tunneled dialysis catheter was placed. Oxygen requirement remains stable at 5-6L NC. Troponin was elevated but stable attributed to demand ischemia in the setting of ESRD. Utilization Review Specialist recommended continuation of aspirin, statin, and beta-coco. Hospital course has been further complicated by progressive anemia (Hb bj 6.5), requiring transfusion with improvement to 8.6. Iron studies and nutritional labs reviewed. Hemoccult positive; CT A/P without overt bleeding source. EGD and colonoscopy were recommended but declined by patient despite counseling. He expressed fear of the procedure and became verbally abusive during discussion to multiple physician prior to assuming care. Psychiatry evaluated and confirmed decisional capacity without evidence of acute psychiatric decompensation. He remains clinically stable, with improving volume status, adequate oxygenation on 5L NC.. He has limited social support and lives alone. Case management is coordinating outpatient dialysis and follow-up. Patient continues to demonstrate significant barriers to care related to behavioral concerns and lack of engagement with medical recommendations 01/22 patient stated he was feeling markedly better today. No fever, chills, nausea or vomiting. Oxygen was weaned to 4l via NC. 01/23 Stated he was feeling weak however no other new complaints. He was restated on aspirin yesterday. No bleeding episode reported. Is agreeable to work with PT and ambulate today. 01/24 Seen in HD, was feeling tired. No new complaints. Still awaiting discharge HD arrangement 01/25 Overnight paitent was noted to be hypertensive was given additional dose of antihypertensive. Medications: Reviewed: Yes Medication Review Details: Current Medications Acetaminophen (Acetaminophen 325 Mg Tablet) 650 mg PO Q6H PRN PRN Reason: Mild/Mod Pain Or Temp >/= 101 Albuterol Sulfate (Albuterol 2.5 Mg/3 Ml Neb) 2.5 mg INHALATION Q4H PRN PRN Reason: Shortness Of Breath Last Admin: 01/19/25 00:06 Dose: 2.5 mg Alprazolam (Alprazolam 0.5 Mg Tablet) 0.5 mg PO ONCE PRN PRN Reason: anxiety Aspirin (Aspirin 81 Mg Ec Tablet) 81 mg PO DAILY [facility] Last Admin: 01/18/25 09:30 Dose: 81 mg Atorvastatin Calcium (Atorvastatin 40 Mg Tablet) 80 mg PO QPM [facility] Last Admin: 01/18/25 18:03 Dose: Not Given Bupropion HCl (Bupropion Xl (24 Hr) 150 Mg Tablet) 150 mg PO DAILY [facility] Last Admin: 01/18/25 09:30 Dose: Not Given Camphor/Menthol/Phenol (Blistex Lip Oint 7 Gm Tube) 1 applic TOPICAL PRN PRN PRN Reason: DRYNESS Last Admin: 01/15/25 21:52 Dose: 1 applic Divalproex Sodium (Divalproex Dr 250 Mg Tablet) 250 mg PO 1900 [facility] Last Admin: 01/18/25 18:08 Dose: 250 mg Ezetimibe (Ezetimibe 10 Mg Tablet) 10 mg PO DAILY [facility] Last Admin: 01/18/25 09:31 Dose: 10 mg Ergocalciferol (Ergocalciferol (Vitamin D2) 50,000 Unit Capsule) 50,000 unit PO Q7D [facility] Last Admin: 01/16/25 13:32 Dose: 50,000 unit Fluconazole (Fluconazole 100 Mg Tablet) 200 mg PO DAILY [facility] Last Admin: 01/18/25 09:31 Dose: 200 mg Glucagon (Glucagon 1 Mg/Ml Kit 1 Ml) 1 mg IM ONCE PRN; Protocol PRN Reason: Adult Acute Hypoglycemia Nursing Prot. Heparin Sodium (Porcine) (Heparin 5,000 Unit/Ml Inj 1 Ml) 5,000 unit SUBCUT Q12H [facility] Last Admin: 01/18/25 22:19 Dose: 5,000 unit Dextrose (D5w) 500 mls @ 0 mls/hr IV ONCE PRN; Protocol PRN Reason: Adult Acute Hypoglycemia Prot Dextrose (D10w) 125 mls @ 750 mls/hr IV PRN PRN; Protocol PRN Reason: Adult Acute Hypoglycemia Nursing Protocol Dextrose (D10w) 250 mls @ 1,000 mls/hr IV PRN PRN; Protocol PRN Reason: Adult Acute Hypoglycemia Nursing Protocol Ferric Sodium Gluconate 125 mg (/ Sodium Chloride) 110 mls @ 110 mls/hr IV Q24H [facility] Stop: 01/24/25 11:59 Last Infusion: 01/18/25 16:00 Dose: Infused Insulin Human Lispro (Insulin Lispro 100 Unit/1 Ml) 0 unit SUBCUT WM&BEDTIME [facility]; Protocol Last Admin: 01/19/25 07:22 Dose: Not Given Isosorbide Mononitrate (Isosorbide Mononitrate Er 30 Mg Tablet) 30 mg PO DAILY [facility] Last Admin: 01/18/25 09:32 Dose: 30 mg Losartan Potassium (Losartan 50 Mg Tablet) 25 mg PO DAILY [facility] Last Admin: 01/18/25 09:30 Dose: 25 mg Metoprolol Tartrate (Metoprolol Tartrate 50 Mg Tablet) 50 mg PO BID@0900,2100 [facility] Last Admin: 01/18/25 21:08 Dose: Not Given Multivitamins (F-Xqlzrhk-Lbtekfi C Tablet) 1 each PO DAILY [facility] Last Admin: 01/18/25 09:31 Dose: 1 each Oxycodone/Acetaminophen (Oxycodone-Apap 5-325 Mg Tablet) 1 tab PO Q4H PRN PRN Reason: Severe Pain Pantoprazole Sodium (Pantoprazole Dr 40 Mg Tablet) 40 mg PO DAILY [facility] Last Admin: 01/18/25 09:31 Dose: 40 mg Sevelamer Carbonate (Sevelamer 800 Mg Tablet) 800 mg PO TIDAC [facility] Last Admin: 01/19/25 05:58 Dose: 800 mg Sodium Chloride (Saline Nasal Burt 44ml Btl) 1 spray NASAL PRN PRN PRN Reason: DRYNESS Last Admin: 01/18/25 21:21 Dose: 1 spray Tamsulosin HCl (Tamsulosin 0.4 Mg Capsule) 0.4 mg PO DAILY [facility] Last Admin: 01/18/25 09:31 Dose: 0.4 mg Vitals/I&O/Wt Last Vital Signs Temp 97.7 F 01/25/25 04:21 Pulse 91 01/25/25 08:00 Resp 17 01/25/25 08:00 BP 207/95 01/25/25 08:45 Pulse Ox 94 01/25/25 08:00 O2 Del Method Nasal Cannula 01/25/25 08:00 O2 Flow Rate 4 01/25/25 06:25 01/24/25 01/25/25 01/25/25 22:59 06:59 14:59 Intake Total 720 / 1271.333 240 / 1511.333 120 / 120 Balance 720 / -2728.667 240 / -2488.667 120 / 120 Weight last 48 hrs Weight 85.548 kg Weight 84.8 kg Weight 88.314 kg Weight 88.178 kg Physical Exam 2 Narrative: Vital signs noted. HEENT normocephalic atraumatic. Neck is supple no JVP. Rt IJ PC Lungs- improved air movement b/l Heart regular positive S1-S2. Abdomen is soft positive bowel sounds. Extremities decreased bilateral edema scrotal edema. Neuro awake alert oriented x 3 and no asterixis Data 01/22/25 08:05 01/22/25 08:05 A&P Assessment and plan (1) End-stage renal disease (ESRD): now HD dependent Plan 1. End-Stage Renal Disease * CKD has progressed to ESRD; biopsy revealed nodular diabetic glomerulosclerosis * Creatinine peaked at 8.0, BUN 77. * Initiated hemodialysis on 01/16 during current admission * Likely to transition to a //Sat outpatient dialysis schedule upon discharge. * Case managment assisting on arranging outpatient HD * Sevelemer 800 mg TIDAC Plan: Proceed with inpatient hemodialysis as per nephrology Monitor electrolytes, renal function, and fluid status closely. Coordinate with case management and nephrology for transition to outpatient HD post-discharge (anticipated //Tue schedule). - NO change to above management 2. Decompensated Heart Failure with Preserved Ejection Fraction (HFpEF) / Acute on chronic respiratory failure with hypoxemia / Elevated troponin suspected demand ischemia * Presented with worsening dyspnea, LE edema, and bilateral airspace disease with small pleural effusions. * Persistent symptoms with current O2 requirement of 5L nasal cannula. * BNP elevated, likely multifactorial from chronic HFpEF and volume overload in ESRD. * Troponins elevated * Utilization Review Specialist consulted and recommended continuation of medical therapy. Plan: Continue fluid restriction Continue Metoprolol 50 mg BID and fluid management with HD Aspirin 81 mg daily(restarted on ), lipitor 80 mg daily(Held- unclear as to why this was held), imdur 30 mg daily and losartan 25 mg daily and zetia 10 mg po daily Oxygen weaned to 4l today - has been between 4-5L Monitor daily weights and fluid balance. No need for further serial troponins unless symptoms change. Has oxygen set up already at home - No change to above management 3 Anemia * Hemoglobin dropped to 6.5, improved to 8.6 post-transfusion. Hemoglobin now has been stable Surgery was consulted and according to surgeon patient has refused EGD/Colonoscpy. No new labs today. Periodically checking given no active bleeding. * Positive hemoccult test * In setting of ESRD Plan: Completed IV Iron. Hemoglobin has alfredo stable Surgery consulted. Patient declined EGD and colonoscopy. Aspirin was restarted on , no bleeding - No change to above management. 4. Hypertension * BP has been increasing with now SBP > 200 at times. * Hydralazine 50 mg TID * Imdur 30 mg daily * Losartan 25 mg daily * Metoprolol 50 mg daily Plan: Will increase dose of hydalazine to 75 mg TID Continue to up-titrate as needed PDMP PDMP Reviewed: Not Reviewed Attestations 2 Medical Necessity Statement*: disposition planning, needs set up for outpatient dialysis, general surgery assessment for endoscopic evaluation Coding Level of Care Code Acute Code for Chg Fwd Diagnoses End-stage renal disease (ESRD) N18.6
[2025-01-25 13:06] LABS: Glucose Point of Care 165 mg/dL (70-110)
[2025-01-25 16:47] LABS: Glucose Point of Care 225 mg/dL (70-110)
[2025-01-25] MEDS: divalproex DR 250 mg Tablet PO (17:14)
[2025-01-25 21:05] LABS: Glucose Point of Care 181 mg/dL (70-110)
[2025-01-26] VITALS (8 sets, daily range): BP systolic 167–186; BP diastolic 85–95; PULSE 71–87; RESP 16–20; TEMP 36.4–37.1; O2SAT 93–97
[2025-01-26 06:38] LABS: Glucose Point of Care 202 mg/dL (70-110)
--- NOTE | 2025-01-26 07:20 | PC.HD ---
At HD catheter dressing change, a large area of dried blood was attached to catheter and catheter insertion site. Skin of insertion site was reddened. Using Chloraprep, area was vigorously scrubbed and dried blood chunk was removed. Old dressing was c/d/i with very small amount of old dried blood and no pus/exudate noted. No s/s of infection noted to reddened area; believed to be simply irritated from the large clot that was attached. Triple antibiotic ointment and new Covaderm was applied. Will continue to monitor area at each dialysis/dressing change and notify director of federal sales of any changes.
[2025-01-26] MEDS: pantoprazole DR 40 mg Tablet PO ×2 (10:34→17:38)
[2025-01-26] MEDS: tamsulosin 0.4 mg Capsule PO (10:34)
[2025-01-26] MEDS: isosorbide mononitrate ER 30 mg Tablet PO (10:34)
[2025-01-26] MEDS: b-complex-vitamin c Tablet 1 EACH PO (10:34)
[2025-01-26] MEDS: losartan 50 mg Tablet 25 MG PO (10:34)
[2025-01-26] MEDS: hyDRALAzine 50 mg Tablet PO (10:35)
[2025-01-26] MEDS: fluconazole 100 mg Tablet 200 MG PO (10:35)
[2025-01-26] MEDS: aspirin 81 mg EC Tablet PO (10:35)
[2025-01-26] MEDS: metoprolol tartrate 50 mg Tablet PO ×2 (10:35→21:29)
[2025-01-26] MEDS: sevelamer 800 mg Tablet PO ×2 (10:35→17:38)
--- NOTE | 2025-01-26 11:12 | PC.NURSE ---
Patient's meds were delayed due to being in dialysis. Meds given after patient arrived to patient room.
[2025-01-26 11:19] LABS: Glucose Point of Care 153 mg/dL (70-110)
[2025-01-26] MEDS: insulin lispro 100 unit/1 mL SUBCUT ×3 (11:50→21:29)
--- NOTE | 2025-01-26 13:56 | P.PN_ITS ---
Subjective 2 Subjective: no new complaints Medications: Reviewed: Yes Vitals/I&O/Wt Last Vital Signs Temp 97.9 F 01/26/25 11:44 Pulse 87 01/26/25 11:44 Resp 16 01/26/25 11:44 BP 174/87 01/26/25 11:44 Pulse Ox 96 01/26/25 11:44 O2 Del Method Nasal Cannula 01/26/25 11:44 O2 Flow Rate 4 01/26/25 11:44 01/25/25 01/26/25 01/26/25 22:59 06:59 14:59 Intake Total 120 / 360 980 / 980 Output Total 3000 / 3000 Balance 120 / 360 -2020 / -2019 Weight last 48 hrs Weight 83.8 kg Weight 87.271 kg Weight 85.548 kg Physical Exam 2 Narrative: Vital signs noted. HEENT normocephalic atraumatic. Neck is supple no JVP. Rt IJ PC Lungs- improved air movement b/l Heart regular positive S1-S2. Abdomen is soft positive bowel sounds. Extremities decreased bilateral edema scrotal edema. Neuro awake alert oriented x 3 and no asterixis Data 01/22/25 08:05 01/22/25 08:05 A&P Assessment and plan (1) End-stage renal disease (ESRD): now HD dependent Plan 59-year-old gentleman with diabetes obesity hypertension grade 2 out of 4 diastolic dysfunction progressive renal insufficiency with renal biopsy showing recent ATN and diabetic nephrosclerosis. 1. ESRD-the patient has progressed to end-stage renal disease. The patient initiated hemodialysis on 01-16 and s/p HD yesterday Next HD today -Please use furosemide on non dialysis days. 2. Anemia- iron sat of 22%, ferritin of 129. s/p IV Iron , YANCY with HD 3. Renal bone mineral metabolism Phosphorus is improving. PTH is 201. Vitamin D is undetectable. Start vitamin D replacement. 4. Blood pressure now low to normal. 5. Elevated BNP due to combination of acute on chronic heart failure with preserved EF exacerbation and from diabetic nephrosclerosis progressing to ESRD. The plan was discussed in detail with the patient and his behavioral health health and wellness sales consultant. Appreciate psychiatry evaluation. The patient was seen and examined with the aid of a nurse using audiovisual equipment. The patient consents to telehealth and to hemodialysis and will attempt to behave appropriately on dialysis. PDMP PDMP Reviewed: Not Reviewed Attestations 2 Medical Necessity Statement*: per albaro Coding Level of Care Code Acute Code for Chg Fwd Diagnoses End-stage renal disease (ESRD) N18.6
--- NOTE | 2025-01-26 15:07 | PM.PN ---
Subjective Subjective: 59-year-old male with stage V CKD, HFpEF, chronic hypoxic respiratory failure (on baseline 5L NC), HTN, DM2, anemia, and bipolar disorder who was initially admitted on 12/30 for acute on chronic volume overload and decompensated HFpEF. He improved with continuous IV diuresis and was discharged in stable condition on 01/13. He was readmitted on 01/15 with generalized weakness, worsening edema, and acute renal decompensation (Cr 8.0, BUN 77, AG 20.5), along with signs of volume overload and bilateral airspace disease. He displayed mood lability and difficulty engaging in care discussions, consistent with his known psychiatric history. He acknowledged likely progression to ESRD and agreed to initiate hemodialysis after nephrology and surgical consultation. A tunneled dialysis catheter was placed. Oxygen requirement remains stable at 5-6L NC. Troponin was elevated but stable attributed to demand ischemia in the setting of ESRD. Drafter Geophysical recommended continuation of aspirin, statin, and beta-coco. Hospital course has been further complicated by progressive anemia (Hb bj 6.5), requiring transfusion with improvement to 8.6. Iron studies and nutritional labs reviewed. Hemoccult positive; CT A/P without overt bleeding source. EGD and colonoscopy were recommended but declined by patient despite counseling. He expressed fear of the procedure and became verbally abusive during discussion to multiple physician prior to assuming care. Psychiatry evaluated and confirmed decisional capacity without evidence of acute psychiatric decompensation. He remains clinically stable, with improving volume status, adequate oxygenation on 5L NC.. He has limited social support and lives alone. Case management is coordinating outpatient dialysis and follow-up. Patient continues to demonstrate significant barriers to care related to behavioral concerns and lack of engagement with medical recommendations 01/22 patient stated he was feeling markedly better today. No fever, chills, nausea or vomiting. Oxygen was weaned to 4l via NC. 01/23 Stated he was feeling weak however no other new complaints. He was restated on aspirin yesterday. No bleeding episode reported. Is agreeable to work with PT and ambulate today. 01/24 Seen in HD, was feeling tired. No new complaints. Still awaiting discharge HD arrangement 01/25 Overnight paitent was noted to be hypertensive was given additional dose of antihypertensive. 01/26 No new clinical events overnight. Was seen in HD. Medications: Reviewed: Yes Medication Review Details: Current Medications Acetaminophen (Acetaminophen 325 Mg Tablet) 650 mg PO Q6H PRN PRN Reason: Mild/Mod Pain Or Temp >/= 101 Albuterol Sulfate (Albuterol 2.5 Mg/3 Ml Neb) 2.5 mg INHALATION Q4H PRN PRN Reason: Shortness Of Breath Last Admin: 01/19/25 00:06 Dose: 2.5 mg Alprazolam (Alprazolam 0.5 Mg Tablet) 0.5 mg PO ONCE PRN PRN Reason: anxiety Aspirin (Aspirin 81 Mg Ec Tablet) 81 mg PO DAILY [facility] Last Admin: 01/18/25 09:30 Dose: 81 mg Atorvastatin Calcium (Atorvastatin 40 Mg Tablet) 80 mg PO QPM [facility] Last Admin: 01/18/25 18:03 Dose: Not Given Bupropion HCl (Bupropion Xl (24 Hr) 150 Mg Tablet) 150 mg PO DAILY [facility] Last Admin: 01/18/25 09:30 Dose: Not Given Camphor/Menthol/Phenol (Blistex Lip Oint 7 Gm Tube) 1 applic TOPICAL PRN PRN PRN Reason: DRYNESS Last Admin: 01/15/25 21:52 Dose: 1 applic Divalproex Sodium (Divalproex Dr 250 Mg Tablet) 250 mg PO 1900 [facility] Last Admin: 01/18/25 18:08 Dose: 250 mg Ezetimibe (Ezetimibe 10 Mg Tablet) 10 mg PO DAILY [facility] Last Admin: 01/18/25 09:31 Dose: 10 mg Ergocalciferol (Ergocalciferol (Vitamin D2) 50,000 Unit Capsule) 50,000 unit PO Q7D [facility] Last Admin: 01/16/25 13:32 Dose: 50,000 unit Fluconazole (Fluconazole 100 Mg Tablet) 200 mg PO DAILY [facility] Last Admin: 01/18/25 09:31 Dose: 200 mg Glucagon (Glucagon 1 Mg/Ml Kit 1 Ml) 1 mg IM ONCE PRN; Protocol PRN Reason: Adult Acute Hypoglycemia Nursing Prot. Heparin Sodium (Porcine) (Heparin 5,000 Unit/Ml Inj 1 Ml) 5,000 unit SUBCUT Q12H [facility] Last Admin: 01/18/25 22:19 Dose: 5,000 unit Dextrose (D5w) 500 mls @ 0 mls/hr IV ONCE PRN; Protocol PRN Reason: Adult Acute Hypoglycemia Prot Dextrose (D10w) 125 mls @ 750 mls/hr IV PRN PRN; Protocol PRN Reason: Adult Acute Hypoglycemia Nursing Protocol Dextrose (D10w) 250 mls @ 1,000 mls/hr IV PRN PRN; Protocol PRN Reason: Adult Acute Hypoglycemia Nursing Protocol Ferric Sodium Gluconate 125 mg (/ Sodium Chloride) 110 mls @ 110 mls/hr IV Q24H [facility] Stop: 01/24/25 11:59 Last Infusion: 01/18/25 16:00 Dose: Infused Insulin Human Lispro (Insulin Lispro 100 Unit/1 Ml) 0 unit SUBCUT WM&BEDTIME [facility]; Protocol Last Admin: 01/19/25 07:22 Dose: Not Given Isosorbide Mononitrate (Isosorbide Mononitrate Er 30 Mg Tablet) 30 mg PO DAILY [facility] Last Admin: 01/18/25 09:32 Dose: 30 mg Losartan Potassium (Losartan 50 Mg Tablet) 25 mg PO DAILY [facility] Last Admin: 01/18/25 09:30 Dose: 25 mg Metoprolol Tartrate (Metoprolol Tartrate 50 Mg Tablet) 50 mg PO BID@0900,2100 [facility] Last Admin: 01/18/25 21:08 Dose: Not Given Multivitamins (J-Qlclosb-Vixmzcx C Tablet) 1 each PO DAILY [facility] Last Admin: 01/18/25 09:31 Dose: 1 each Oxycodone/Acetaminophen (Oxycodone-Apap 5-325 Mg Tablet) 1 tab PO Q4H PRN PRN Reason: Severe Pain Pantoprazole Sodium (Pantoprazole Dr 40 Mg Tablet) 40 mg PO DAILY [facility] Last Admin: 01/18/25 09:31 Dose: 40 mg Sevelamer Carbonate (Sevelamer 800 Mg Tablet) 800 mg PO TIDAC [facility] Last Admin: 01/19/25 05:58 Dose: 800 mg Sodium Chloride (Saline Nasal [place] 44ml Btl) 1 spray NASAL PRN PRN PRN Reason: DRYNESS Last Admin: 01/18/25 21:21 Dose: 1 spray Tamsulosin HCl (Tamsulosin 0.4 Mg Capsule) 0.4 mg PO DAILY [facility] Last Admin: 01/18/25 09:31 Dose: 0.4 mg Vitals/I&O/Wt Last Vital Signs Temp 97.9 F 01/26/25 11:44 Pulse 87 01/26/25 11:44 Resp 16 01/26/25 11:44 BP 174/87 01/26/25 11:44 Pulse Ox 96 01/26/25 11:44 O2 Del Method Nasal Cannula 01/26/25 11:44 O2 Flow Rate 4 01/26/25 11:44 01/26/25 01/26/25 01/26/25 06:59 14:59 22:59 Intake Total 980 / 980 Output Total 3000 / 3000 Balance -2019 / Weight last 48 hrs Weight 83.8 kg Weight 87.271 kg Weight 85.548 kg Physical Exam Narrative: Vital signs noted. HEENT normocephalic atraumatic. Neck is supple no JVP. Rt IJ PC Lungs- improved air movement b/l Heart regular positive S1-S2. Abdomen is soft positive bowel sounds. Extremities decreased bilateral edema scrotal edema. Neuro awake alert oriented x 3 and no asterixis Data 01/22/25 08:05 01/22/25 08:05 A&P Assessment and plan (1) End-stage renal disease (ESRD): now HD dependent Plan 1. End-Stage Renal Disease CKD has progressed to ESRD; biopsy revealed nodular diabetic glomerulosclerosis Creatinine peaked at 8.0, BUN 77. Initiated hemodialysis on 01/16 during current admission Likely to transition to a //Sat outpatient dialysis schedule upon discharge. Case managment assisting on arranging outpatient HD Sevelemer 800 mg TIDAC Plan: Proceed with inpatient hemodialysis as per nephrology Monitor electrolytes, renal function, and fluid status closely. Coordinate with case management and nephrology for transition to outpatient HD post-discharge (anticipated //Tue schedule). - NO change to above management 2. Decompensated Heart Failure with Preserved Ejection Fraction (HFpEF) / Acute on chronic respiratory failure with hypoxemia / Elevated troponin suspected demand ischemia Presented with worsening dyspnea, LE edema, and bilateral airspace disease with small pleural effusions. Persistent symptoms with current O2 requirement of 5L nasal cannula. BNP elevated, likely multifactorial from chronic HFpEF and volume overload in ESRD. Troponins elevated Drafter Geophysical consulted and recommended continuation of medical therapy. Plan: Continue fluid restriction Continue Metoprolol 50 mg BID and fluid management with HD Aspirin 81 mg daily(restarted on ), lipitor 80 mg daily(Held- unclear as to why this was held), imdur 30 mg daily and losartan 25 mg daily and zetia 10 mg po daily Oxygen weaned to 4l today - has been between 4-5L Monitor daily weights and fluid balance. No need for further serial troponins unless symptoms change. Has oxygen set up already at home - No change to above management 3 Anemia Hemoglobin dropped to 6.5, improved to 8.6 post-transfusion. Hemoglobin now has been stable Surgery was consulted and according to surgeon patient has refused EGD/Colonoscpy. No new labs today. Periodically checking given no active bleeding. Positive hemoccult test In setting of ESRD Plan: Completed IV Iron. Hemoglobin has alfredo stable Surgery consulted. Patient declined EGD and colonoscopy. Aspirin was restarted on , no bleeding - No change to above management. 4. Hypertension BP has been increasing with now SBP > 200 at times. Hydralazine 50 mg TID Imdur 30 mg daily Losartan 25 mg daily Metoprolol 50 mg daily Plan: Improving will continue to titrate for optimal control Disposition: Prolonged hospitalization due to outpatient dialysis arrangement. PDMP PDMP Reviewed: Not Reviewed Attestations Medical Necessity Statement*: disposition planning, needs set up for outpatient dialysis, general surgery assessment for endoscopic evaluation Coding Level of Care Code Acute Code for Chg Fwd Diagnoses End-stage renal disease (ESRD) N18.6
[2025-01-26 17:28] LABS: Glucose Point of Care 162 mg/dL (70-110)
[2025-01-26] MEDS: divalproex DR 250 mg Tablet PO (19:40)
[2025-01-26 21:15] LABS: Glucose Point of Care 164 mg/dL (70-110)
[2025-01-26] MEDS: hyDRALAzine 50 mg Tablet 75 MG PO (21:29)
[2025-01-26] MEDS: albuterol 2.5 mg/3 mL Neb INHALATION (21:57)
[2025-01-27] VITALS (9 sets, daily range): BP systolic 171–180; BP diastolic 84–89; PULSE 75–83; RESP 16–18; TEMP 36.6–36.8; O2SAT 94–98
[2025-01-27] MEDS: sevelamer 800 mg Tablet PO ×3 (06:19→16:21)
[2025-01-27 06:38] LABS: Glucose Point of Care 155 mg/dL (70-110)
[2025-01-27] MEDS: fluconazole 100 mg Tablet 200 MG PO (08:35)
[2025-01-27] MEDS: tamsulosin 0.4 mg Capsule PO (08:35)
[2025-01-27] MEDS: losartan 50 mg Tablet 25 MG PO (08:35)
[2025-01-27] MEDS: pantoprazole DR 40 mg Tablet PO ×2 (08:35→18:04)
[2025-01-27] MEDS: hyDRALAzine 50 mg Tablet 75 MG PO ×3 (08:35→21:08)
[2025-01-27] MEDS: insulin lispro 100 unit/1 mL SUBCUT ×2 (08:36→18:05)
[2025-01-27] MEDS: b-complex-vitamin c Tablet 1 EACH PO (08:36)
[2025-01-27] MEDS: aspirin 81 mg EC Tablet PO (08:36)
[2025-01-27] MEDS: isosorbide mononitrate ER 30 mg Tablet PO (08:36)
[2025-01-27] MEDS: metoprolol tartrate 50 mg Tablet PO ×2 (08:36→21:08)
--- NOTE | 2025-01-27 09:23 | PM.PN ---
Subjective Subjective: no new complaints Medications: Reviewed: Yes Vitals/I&O/Wt Last Vital Signs Temp 98.1 F 01/27/25 07:56 Pulse 83 01/27/25 08:45 Resp 18 01/27/25 08:45 BP 171/88 01/27/25 07:56 Pulse Ox 94 01/27/25 08:45 O2 Del Method Nasal Cannula 01/27/25 08:45 O2 Flow Rate 4 01/27/25 08:45 01/26/25 01/27/25 01/27/25 22:59 06:59 14:59 Intake Total 480 / 1460 480 / 480 Balance 480 / -1540 480 / 480 Weight last 48 hrs Weight 84.686 kg Weight 83.8 kg Weight 87.271 kg Physical Exam Narrative: Vital signs noted. HEENT normocephalic atraumatic. Neck is supple no JVP. Rt IJ PC Lungs- improved air movement b/l Heart regular positive S1-S2. Abdomen is soft positive bowel sounds. Extremities decreased bilateral edema scrotal edema. Neuro awake alert oriented x 3 and no asterixis Data 01/27/25 16:50 01/22/25 08:05 A&P Assessment and plan (1) End-stage renal disease (ESRD): now HD dependent Plan 59-year-old gentleman with diabetes obesity hypertension grade 2 out of 4 diastolic dysfunction progressive renal insufficiency with renal biopsy showing recent ATN and diabetic nephrosclerosis. 1. ESRD-the patient has progressed to end-stage renal disease. The patient initiated hemodialysis on 01-16 and s/p HD yesterday Next HD tuesday 2. Anemia- iron sat of 22%, ferritin of 129. s/p IV Iron , YANCY with HD 3. Renal bone mineral metabolism Phosphorus is improving. PTH is 201. Vitamin D is undetectable. Start vitamin D replacement. 4. Blood pressure now low to normal. 5. Elevated BNP due to combination of acute on chronic heart failure with preserved EF exacerbation and from diabetic nephrosclerosis progressing to ESRD. The plan was discussed in detail with the patient and his behavioral health it systems analyst consultant. Appreciate psychiatry evaluation. The patient was seen and examined with the aid of a nurse using audiovisual equipment. The patient consents to telehealth and to hemodialysis and will attempt to behave appropriately on dialysis. PDMP PDMP Reviewed: Not Reviewed Attestations Medical Necessity Statement*: per [facility] Coding Level of Care Code Acute Code for Chg Fwd Diagnoses End-stage renal disease (ESRD) N18.6
[2025-01-27] MEDS: albuterol 2.5 mg/3 mL Neb INHALATION (11:02)
[2025-01-27 11:12] LABS: Glucose Point of Care 136 mg/dL (70-110)
--- NOTE | 2025-01-27 16:12 | PM.PN ---
Subjective Subjective: 59-year-old male with stage V CKD, HFpEF, chronic hypoxic respiratory failure (on baseline 5L NC), HTN, DM2, anemia, and bipolar disorder who was initially admitted on 12/30 for acute on chronic volume overload and decompensated HFpEF. He improved with continuous IV diuresis and was discharged in stable condition on 01/13. He was readmitted on 01/15 with generalized weakness, worsening edema, and acute renal decompensation (Cr 8.0, BUN 77, AG 20.5), along with signs of volume overload and bilateral airspace disease. He displayed mood lability and difficulty engaging in care discussions, consistent with his known psychiatric history. He acknowledged likely progression to ESRD and agreed to initiate hemodialysis after nephrology and surgical consultation. A tunneled dialysis catheter was placed. Oxygen requirement remains stable at 5-6L NC. Troponin was elevated but stable attributed to demand ischemia in the setting of ESRD. Dynamics Ax Consultant recommended continuation of aspirin, statin, and beta-coco. Hospital course has been further complicated by progressive anemia (Hb bj 6.5), requiring transfusion with improvement to 8.6. Iron studies and nutritional labs reviewed. Hemoccult positive; CT A/P without overt bleeding source. EGD and colonoscopy were recommended but declined by patient despite counseling. He expressed fear of the procedure and became verbally abusive during discussion to multiple physician prior to assuming care. Psychiatry evaluated and confirmed decisional capacity without evidence of acute psychiatric decompensation. He remains clinically stable, with improving volume status, adequate oxygenation on 5L NC.. He has limited social support and lives alone. Case management is coordinating outpatient dialysis and follow-up. Patient continues to demonstrate significant barriers to care related to behavioral concerns and lack of engagement with medical recommendations 01/22 patient stated he was feeling markedly better today. No fever, chills, nausea or vomiting. Oxygen was weaned to 4l via NC. 01/23 Stated he was feeling weak however no other new complaints. He was restated on aspirin yesterday. No bleeding episode reported. Is agreeable to work with PT and ambulate today. 01/24 Seen in HD, was feeling tired. No new complaints. Still awaiting discharge HD arrangement 01/25 Overnight paitent was noted to be hypertensive was given additional dose of antihypertensive. 01/26 No new clinical events overnight. Was seen in HD. 01/27 Patient continues to be hypertensive. Blood pressure 180/89 was noted. Medications: Reviewed: Yes Medication Review Details: Current Medications Acetaminophen (Acetaminophen 325 Mg Tablet) 650 mg PO Q6H PRN PRN Reason: Mild/Mod Pain Or Temp >/= 101 Albuterol Sulfate (Albuterol 2.5 Mg/3 Ml Neb) 2.5 mg INHALATION Q4H PRN PRN Reason: Shortness Of Breath Last Admin: 01/19/25 00:06 Dose: 2.5 mg Alprazolam (Alprazolam 0.5 Mg Tablet) 0.5 mg PO ONCE PRN PRN Reason: anxiety Aspirin (Aspirin 81 Mg Ec Tablet) 81 mg PO DAILY [facility] Last Admin: 01/18/25 09:30 Dose: 81 mg Atorvastatin Calcium (Atorvastatin 40 Mg Tablet) 80 mg PO QPM [facility] Last Admin: 01/18/25 18:03 Dose: Not Given Bupropion HCl (Bupropion Xl (24 Hr) 150 Mg Tablet) 150 mg PO DAILY [facility] Last Admin: 01/18/25 09:30 Dose: Not Given Camphor/Menthol/Phenol (Blistex Lip Oint 7 Gm Tube) 1 applic TOPICAL PRN PRN PRN Reason: DRYNESS Last Admin: 01/15/25 21:52 Dose: 1 applic Divalproex Sodium (Divalproex Dr 250 Mg Tablet) 250 mg PO 1900 [facility] Last Admin: 01/18/25 18:08 Dose: 250 mg Ezetimibe (Ezetimibe 10 Mg Tablet) 10 mg PO DAILY [facility] Last Admin: 01/18/25 09:31 Dose: 10 mg Ergocalciferol (Ergocalciferol (Vitamin D2) 50,000 Unit Capsule) 50,000 unit PO Q7D [facility] Last Admin: 01/16/25 13:32 Dose: 50,000 unit Fluconazole (Fluconazole 100 Mg Tablet) 200 mg PO DAILY [facility] Last Admin: 01/18/25 09:31 Dose: 200 mg Glucagon (Glucagon 1 Mg/Ml Kit 1 Ml) 1 mg IM ONCE PRN; Protocol PRN Reason: Adult Acute Hypoglycemia Nursing Prot. Heparin Sodium (Porcine) (Heparin 5,000 Unit/Ml Inj 1 Ml) 5,000 unit SUBCUT Q12H [facility] Last Admin: 01/18/25 22:19 Dose: 5,000 unit Dextrose (D5w) 500 mls @ 0 mls/hr IV ONCE PRN; Protocol PRN Reason: Adult Acute Hypoglycemia Prot Dextrose (D10w) 125 mls @ 750 mls/hr IV PRN PRN; Protocol PRN Reason: Adult Acute Hypoglycemia Nursing Protocol Dextrose (D10w) 250 mls @ 1,000 mls/hr IV PRN PRN; Protocol PRN Reason: Adult Acute Hypoglycemia Nursing Protocol Ferric Sodium Gluconate 125 mg (/ Sodium Chloride) 110 mls @ 110 mls/hr IV Q24H [facility] Stop: 01/24/25 11:59 Last Infusion: 01/18/25 16:00 Dose: Infused Insulin Human Lispro (Insulin Lispro 100 Unit/1 Ml) 0 unit SUBCUT WM&BEDTIME [facility]; Protocol Last Admin: 01/19/25 07:22 Dose: Not Given Isosorbide Mononitrate (Isosorbide Mononitrate Er 30 Mg Tablet) 30 mg PO DAILY [facility] Last Admin: 01/18/25 09:32 Dose: 30 mg Losartan Potassium (Losartan 50 Mg Tablet) 25 mg PO DAILY [facility] Last Admin: 01/18/25 09:30 Dose: 25 mg Metoprolol Tartrate (Metoprolol Tartrate 50 Mg Tablet) 50 mg PO BID@0900,2100 [facility] Last Admin: 01/18/25 21:08 Dose: Not Given Multivitamins (A-Eofbcid-Njjcrfo C Tablet) 1 each PO DAILY [facility] Last Admin: 01/18/25 09:31 Dose: 1 each Oxycodone/Acetaminophen (Oxycodone-Apap 5-325 Mg Tablet) 1 tab PO Q4H PRN PRN Reason: Severe Pain Pantoprazole Sodium (Pantoprazole Dr 40 Mg Tablet) 40 mg PO DAILY [facility] Last Admin: 01/18/25 09:31 Dose: 40 mg Sevelamer Carbonate (Sevelamer 800 Mg Tablet) 800 mg PO TIDAC [facility] Last Admin: 01/19/25 05:58 Dose: 800 mg Sodium Chloride (Saline Nasal [place] 44ml Btl) 1 spray NASAL PRN PRN PRN Reason: DRYNESS Last Admin: 01/18/25 21:21 Dose: 1 spray Tamsulosin HCl (Tamsulosin 0.4 Mg Capsule) 0.4 mg PO DAILY [facility] Last Admin: 01/18/25 09:31 Dose: 0.4 mg Vitals/I&O/Wt Last Vital Signs Temp 97.8 F 01/27/25 11:19 Pulse 83 01/27/25 11:19 Resp 18 01/27/25 11:19 BP 180/89 01/27/25 11:19 Pulse Ox 95 01/27/25 11:19 O2 Del Method Nasal Cannula 01/27/25 11:19 O2 Flow Rate 4 01/27/25 11:00 01/27/25 01/27/25 01/27/25 06:59 14:59 22:59 Intake Total 960 / 960 Balance 960 / 960 Weight last 48 hrs Weight 84.686 kg Weight 83.8 kg Weight 87.271 kg Physical Exam Narrative: Vital signs noted. HEENT normocephalic atraumatic. Neck is supple no JVP. Rt IJ PC Lungs- improved air movement b/l Heart regular positive S1-S2. Abdomen is soft positive bowel sounds. Extremities decreased bilateral edema scrotal edema. Neuro awake alert oriented x 3 and no asterixis Data 01/27/25 16:50 01/22/25 08:05 A&P Assessment and plan (1) End-stage renal disease (ESRD): Plan 1. End-Stage Renal Disease CKD has progressed to ESRD; biopsy revealed nodular diabetic glomerulosclerosis Creatinine peaked at 8.0, BUN 77. Initiated hemodialysis on 01/16 during current admission Likely to transition to a //Tue outpatient dialysis schedule upon discharge. Case managment assisting on arranging outpatient HD [place] 800 mg TIDAC Plan: Proceed with inpatient hemodialysis as per nephrology Monitor electrolytes, renal function, and fluid status closely. Coordinate with case management and nephrology for transition to outpatient HD post-discharge (anticipated //Tue schedule). - NO change to above management 2. Decompensated Heart Failure with Preserved Ejection Fraction (HFpEF) / Acute on chronic respiratory failure with hypoxemia / Elevated troponin suspected demand ischemia Presented with worsening dyspnea, LE edema, and bilateral airspace disease with small pleural effusions. Persistent symptoms with current O2 requirement of 5L nasal cannula. BNP elevated, likely multifactorial from chronic HFpEF and volume overload in ESRD. Troponins elevated Dynamics Ax Consultant consulted and recommended continuation of medical therapy. Plan: Continue fluid restriction Continue Metoprolol 50 mg BID and fluid management with HD Aspirin 81 mg daily(restarted on ), lipitor 80 mg daily(Held- unclear as to why this was held), imdur 30 mg daily and losartan 25 mg daily and zetia 10 mg po daily Oxygen weaned to 4l today - has been between 4-5L Monitor daily weights and fluid balance. No need for further serial troponins unless symptoms change. Has oxygen set up already at home - No change to above management 3 Anemia Hemoglobin dropped to 6.5, improved to 8.6 post-transfusion. Hemoglobin now has been stable Surgery was consulted and according to surgeon patient has refused EGD/Colonoscpy. No new labs today. Periodically checking given no active bleeding. Positive hemoccult test In setting of ESRD Plan: Completed IV Iron. Hemoglobin has alfredo stable Surgery consulted. Patient declined EGD and colonoscopy. Aspirin was restarted on , no bleeding - No change to above management. 4. Hypertension BP has been increasing with now SBP > 200 at times. Hydralazine 50 mg TID Imdur 30 mg daily Losartan 25 mg daily - increase to 50 today Metoprolol 50 mg daily Plan: Improving will continue to titrate for optimal control Losartan increased to 50 mg today Disposition: Prolonged hospitalization due to outpatient dialysis arrangement. PDMP PDMP Reviewed: Not Reviewed Attestations Medical Necessity Statement*: disposition planning, needs set up for outpatient dialysis, general surgery assessment for endoscopic evaluation Coding Level of Care Code Acute Code for Chg Fwd Diagnoses End-stage renal disease (ESRD) N18.6
[2025-01-27 16:38] LABS: Glucose Point of Care 261 mg/dL (70-110)
[2025-01-27 17:10] LABS: Hematocrit 29.4 % (37-53)
[2025-01-27] MEDS: divalproex DR 250 mg Tablet PO (18:04)
[2025-01-27 20:48] LABS: Glucose Point of Care 113 mg/dL (70-110)
[2025-01-28] VITALS (11 sets, daily range): BP systolic 156–182; BP diastolic 74–92; PULSE 74–90; RESP 16–18; TEMP 36.4–37.1; O2SAT 90–96
[2025-01-28] MEDS: albuterol 2.5 mg/3 mL Neb INHALATION ×2 (02:34→10:25)
[2025-01-28 06:48] LABS: Glucose Point of Care 132 mg/dL (70-110)
[2025-01-28] MEDS: fluconazole 100 mg Tablet 200 MG PO (09:46)
[2025-01-28] MEDS: b-complex-vitamin c Tablet 1 EACH PO (09:47)
[2025-01-28] MEDS: metoprolol tartrate 50 mg Tablet PO ×2 (09:47→21:22)
[2025-01-28] MEDS: pantoprazole DR 40 mg Tablet PO ×2 (09:47→18:17)
[2025-01-28] MEDS: losartan 50 mg Tablet 25 MG PO (09:47)
[2025-01-28] MEDS: tamsulosin 0.4 mg Capsule PO (09:47)
[2025-01-28] MEDS: hyDRALAzine 50 mg Tablet 75 MG PO ×3 (09:48→21:22)
[2025-01-28] MEDS: isosorbide mononitrate ER 30 mg Tablet PO (09:49)
[2025-01-28] MEDS: aspirin 81 mg EC Tablet PO (09:49)
--- NOTE | 2025-01-28 10:46 | P.PN_ITS ---
Subjective 2 Subjective: no new c/o Medications: Reviewed: Yes Vitals/I&O/Wt Last Vital Signs Temp 98.8 F 01/28/25 08:00 Pulse 90 01/28/25 10:33 Resp 16 01/28/25 10:00 BP 182/92 01/28/25 09:47 Pulse Ox 90 01/28/25 10:00 O2 Del Method Nasal Cannula 01/28/25 10:00 O2 Flow Rate 4 01/28/25 10:00 01/27/25 01/28/25 01/28/25 22:59 06:59 14:59 Intake Total 480 / 1440 360 / 360 Balance 480 / 1440 360 / 360 Weight last 48 hrs Weight 83.915 kg Weight 84.686 kg Weight 83.8 kg Physical Exam 2 Narrative: Vital signs noted. HEENT normocephalic atraumatic. Neck is supple no JVP. Rt IJ PC Lungs- improved air movement b/l Heart regular positive S1-S2. Abdomen is soft positive bowel sounds. Extremities decreased bilateral edema scrotal edema. Neuro awake alert oriented x 3 and no asterixis Data 01/27/25 16:50 01/22/25 08:05 A&P Assessment and plan (1) End-stage renal disease (ESRD): now HD dependent Plan 59-year-old gentleman with diabetes obesity hypertension grade 2 out of 4 diastolic dysfunction progressive renal insufficiency with renal biopsy showing recent ATN and diabetic nephrosclerosis. 1. ESRD-the patient has progressed to end-stage renal disease. The patient initiated hemodialysis on 01-16 and s/p HD tuesday Next HD tuesday 2. Anemia- iron sat of 22%, ferritin of 129. s/p IV Iron , YANCY with HD 3. Renal bone mineral metabolism Phosphorus is improving. PTH is 201. Vitamin D is undetectable. Start vitamin D replacement. 4. Blood pressure now low to normal. 5. Elevated BNP due to combination of acute on chronic heart failure with preserved EF exacerbation and from diabetic nephrosclerosis progressing to ESRD. The plan was discussed in detail with the patient and his behavioral health national sales consultant. Appreciate psychiatry evaluation. The patient was seen and examined with the aid of a nurse using audiovisual equipment. The patient consents to telehealth and to hemodialysis and will attempt to behave appropriately on dialysis. PDMP PDMP Reviewed: Not Reviewed Attestations 2 Medical Necessity Statement*: per [facility] Coding Level of Care Code Acute Code for Chg Fwd Diagnoses End-stage renal disease (ESRD) N18.6
[2025-01-28] MEDS: sevelamer 800 mg Tablet PO ×2 (11:28→18:16)
--- NOTE | 2025-01-28 11:33 | P.PN_ITS ---
Subjective 2 Subjective: 59-year-old male with stage V CKD, HFpEF , chronic hypoxic respiratory failure (on baseline 5L NC), HTN, DM2, anemia, and bipolar disorder who was initially admitted on 12/30 for acute on chronic volume overload and decompensated HFpEF. He improved with continuous IV diuresis and was discharged in stable condition on 01/13. He was readmitted on 01/15 with generalized weakness, worsening edema, and acute renal decompensation (Cr 8.0, BUN 77, AG 20.5), along with signs of volume overload and bilateral airspace disease. He displayed mood lability and difficulty engaging in care discussions, consistent with his known psychiatric history. He acknowledged likely progression to ESRD and agreed to initiate hemodialysis after nephrology and surgical consultation. A tunneled dialysis catheter was placed. Oxygen requirement remains stable at 5-6L NC. Troponin was elevated but stable attributed to demand ischemia in the setting of ESRD. Talent Rep recommended continuation of aspirin, statin, and beta-coco. Hospital course has been further complicated by progressive anemia (Hb bj 6.5), requiring transfusion with improvement to 8.6. Iron studies and nutritional labs reviewed. Hemoccult positive; CT A/P without overt bleeding source. EGD and colonoscopy were recommended but declined by patient despite counseling. He expressed fear of the procedure and became verbally abusive during discussion to multiple physician prior to assuming care. Psychiatry evaluated and confirmed decisional capacity without evidence of acute psychiatric decompensation. He remains clinically stable, with improving volume status, adequate oxygenation on 5L NC.. He has limited social support and lives alone. Case management is coordinating outpatient dialysis and follow-up. Patient continues to demonstrate significant barriers to care related to behavioral concerns and lack of engagement with medical recommendations 01/22 patient stated he was feeling markedly better today. No fever, chills, nausea or vomiting. Oxygen was weaned to 4l via NC. 01/23 Stated he was feeling weak however no other new complaints. He was restated on aspirin yesterday. No bleeding episode reported. Is agreeable to work with PT and ambulate today. 01/24 Seen in HD, was feeling tired. No new complaints. Still awaiting discharge HD arrangement 01/25 Overnight paitent was noted to be hypertensive was given additional dose of antihypertensive. 01/26 No new clinical events overnight. Was seen in HD. 01/27 Patient continues to be hypertensive. Blood pressure 180/89 was noted. 01/28 Upset from having to remain in hospital and delay in arranging safe discharge Medications: Reviewed: Yes Medication Review Details: Current Medications Acetaminophen (Acetaminophen 325 Mg Tablet) 650 mg PO Q6H PRN PRN Reason: Mild/Mod Pain Or Temp >/= 101 Albuterol Sulfate (Albuterol 2.5 Mg/3 Ml Neb) 2.5 mg INHALATION Q4H PRN PRN Reason: Shortness Of Breath Last Admin: 01/19/25 00:06 Dose: 2.5 mg Alprazolam (Alprazolam 0.5 Mg Tablet) 0.5 mg PO ONCE PRN PRN Reason: anxiety Aspirin (Aspirin 81 Mg Ec Tablet) 81 mg PO DAILY [facility] Last Admin: 01/18/25 09:30 Dose: 81 mg Atorvastatin Calcium (Atorvastatin 40 Mg Tablet) 80 mg PO QPM [facility] Last Admin: 01/18/25 18:03 Dose: Not Given Bupropion HCl (Bupropion Xl (24 Hr) 150 Mg Tablet) 150 mg PO DAILY [facility] Last Admin: 01/18/25 09:30 Dose: Not Given Camphor/Menthol/Phenol (Blistex Lip Oint 7 Gm Tube) 1 applic TOPICAL PRN PRN PRN Reason: DRYNESS Last Admin: 01/15/25 21:52 Dose: 1 applic Divalproex Sodium (Divalproex Dr 250 Mg Tablet) 250 mg PO 1900 [facility] Last Admin: 01/18/25 18:08 Dose: 250 mg Ezetimibe (Ezetimibe 10 Mg Tablet) 10 mg PO DAILY [facility] Last Admin: 01/18/25 09:31 Dose: 10 mg Ergocalciferol (Ergocalciferol (Vitamin D2) 50,000 Unit Capsule) 50,000 unit PO Q7D [facility] Last Admin: 01/16/25 13:32 Dose: 50,000 unit Fluconazole (Fluconazole 100 Mg Tablet) 200 mg PO DAILY [facility] Last Admin: 01/18/25 09:31 Dose: 200 mg Glucagon (Glucagon 1 Mg/Ml Kit 1 Ml) 1 mg IM ONCE PRN; Protocol PRN Reason: Adult Acute Hypoglycemia Nursing Prot. Heparin Sodium (Porcine) (Heparin 5,000 Unit/Ml Inj 1 Ml) 5,000 unit SUBCUT Q12H [facility] Last Admin: 01/18/25 22:19 Dose: 5,000 unit Dextrose (D5w) 500 mls @ 0 mls/hr IV ONCE PRN; Protocol PRN Reason: Adult Acute Hypoglycemia Prot Dextrose (D10w) 125 mls @ 750 mls/hr IV PRN PRN; Protocol PRN Reason: Adult Acute Hypoglycemia Nursing Protocol Dextrose (D10w) 250 mls @ 1,000 mls/hr IV PRN PRN; Protocol PRN Reason: Adult Acute Hypoglycemia Nursing Protocol Ferric Sodium Gluconate 125 mg (/ Sodium Chloride) 110 mls @ 110 mls/hr IV Q24H [facility] Stop: 01/24/25 11:59 Last Infusion: 01/18/25 16:00 Dose: Infused Insulin Human Lispro (Insulin Lispro 100 Unit/1 Ml) 0 unit SUBCUT WM&BEDTIME [facility]; Protocol Last Admin: 01/19/25 07:22 Dose: Not Given Isosorbide Mononitrate (Isosorbide Mononitrate Er 30 Mg Tablet) 30 mg PO DAILY [facility] Last Admin: 01/18/25 09:32 Dose: 30 mg Losartan Potassium (Losartan 50 Mg Tablet) 25 mg PO DAILY [facility] Last Admin: 01/18/25 09:30 Dose: 25 mg Metoprolol Tartrate (Metoprolol Tartrate 50 Mg Tablet) 50 mg PO BID@0900,2100 [facility] Last Admin: 01/18/25 21:08 Dose: Not Given Multivitamins (F-Hadygmk-Jtqvjto C Tablet) 1 each PO DAILY [facility] Last Admin: 01/18/25 09:31 Dose: 1 each Oxycodone/Acetaminophen (Oxycodone-Apap 5-325 Mg Tablet) 1 tab PO Q4H PRN PRN Reason: Severe Pain Pantoprazole Sodium (Pantoprazole Dr 40 Mg Tablet) 40 mg PO DAILY [facility] Last Admin: 01/18/25 09:31 Dose: 40 mg Sevelamer Carbonate (Sevelamer 800 Mg Tablet) 800 mg PO TIDAC [facility] Last Admin: 01/19/25 05:58 Dose: 800 mg Sodium Chloride (Saline Nasal [place] 44ml Btl) 1 spray NASAL PRN PRN PRN Reason: DRYNESS Last Admin: 01/18/25 21:21 Dose: 1 spray Tamsulosin HCl (Tamsulosin 0.4 Mg Capsule) 0.4 mg PO DAILY [facility] Last Admin: 01/18/25 09:31 Dose: 0.4 mg Vitals/I&O/Wt Last Vital Signs Temp 98.8 F 01/28/25 08:00 Pulse 90 01/28/25 10:33 Resp 16 01/28/25 10:00 BP 182/92 01/28/25 09:47 Pulse Ox 90 01/28/25 10:00 O2 Del Method Nasal Cannula 01/28/25 10:00 O2 Flow Rate 4 01/28/25 10:00 01/27/25 01/28/25 01/28/25 22:59 06:59 14:59 Intake Total 480 / 1440 360 / 360 Balance 480 / 1440 360 / 360 Weight last 48 hrs Weight 83.915 kg Weight 84.686 kg Physical Exam 2 Narrative: Vital signs noted. HEENT normocephalic atraumatic. Neck is supple no JVP. Rt IJ PC Lungs- improved air movement b/l Heart regular positive S1-S2. Abdomen is soft positive bowel sounds. Extremities decreased bilateral edema scrotal edema. Neuro awake alert oriented x 3 and no asterixis Data 01/27/25 16:50 01/22/25 08:05 A&P Assessment and plan (1) End-stage renal disease (ESRD): Plan 1. End-Stage Renal Disease * CKD has progressed to ESRD; biopsy revealed nodular diabetic glomerulosclerosis * Creatinine peaked at 8.0, BUN 77. * Initiated hemodialysis on 01/16 during current admission * Likely to transition to a //Tue outpatient dialysis schedule upon discharge. * Case managment assisting on arranging outpatient HD * Sevelemer 800 mg TIDAC Plan: Proceed with inpatient hemodialysis as per nephrology Monitor electrolytes, renal function, and fluid status closely. Coordinate with case management and nephrology for transition to outpatient HD post-discharge (anticipated //Tue schedule). - NO change to above management 2. Decompensated Heart Failure with Preserved Ejection Fraction (HFpEF) / Acute on chronic respiratory failure with hypoxemia / Elevated troponin suspected demand ischemia * Presented with worsening dyspnea, LE edema, and bilateral airspace disease with small pleural effusions. * Persistent symptoms with current O2 requirement of 5L nasal cannula. * BNP elevated, likely multifactorial from chronic HFpEF and volume overload in ESRD. * Troponins elevated * Talent Rep consulted and recommended continuation of medical therapy. Plan: Continue fluid restriction Continue Metoprolol 50 mg BID and fluid management with HD Aspirin 81 mg daily(restarted on ), lipitor 80 mg daily(Held- unclear as to why this was held), imdur 30 mg daily and losartan 25 mg daily and zetia 10 mg po daily Oxygen weaned to 4l today - has been between 4-5L Monitor daily weights and fluid balance. No need for further serial troponins unless symptoms change. Has oxygen set up already at home - No change to above management 3 Anemia * Hemoglobin dropped to 6.5, improved to 8.6 post-transfusion. Hemoglobin now has been stable Surgery was consulted and according to surgeon patient has refused EGD/Colonoscpy. No new labs today. Periodically checking given no active bleeding. * Positive hemoccult test * In setting of ESRD Plan: Completed IV Iron. Hemoglobin has alfredo stable Surgery consulted. Patient declined EGD and colonoscopy. Aspirin was restarted on , no bleeding - No change to above management. 4. Hypertension * BP has been increasing with now SBP > 200 at times. * Hydralazine 50 mg TID * Imdur 30 mg daily * Losartan 25 mg daily - increase to 50 today * Metoprolol 50 mg daily Plan: Improving will continue to titrate for optimal control Losartan increased to 50 mg today Disposition: Prolonged hospitalization due to outpatient dialysis arrangement. PDMP PDMP Reviewed: Not Reviewed Attestations 2 Medical Necessity Statement*: disposition planning, needs set up for outpatient dialysis, general surgery assessment for endoscopic evaluation Coding Level of Care Code Acute Code for Chg Fwd Diagnoses End-stage renal disease (ESRD) N18.6
[2025-01-28 12:04] LABS: Glucose Point of Care 174 mg/dL (70-110)
[2025-01-28] MEDS: insulin lispro 100 unit/1 mL SUBCUT ×3 (12:46→22:24)
--- NOTE | 2025-01-28 14:19 | PC.SOCIAL ---
IMM updated Updated pt on IMM. No questions voiced. Provided pt a copy. Initialed, dated, & timed a copy & placed in chart.
[2025-01-28 16:52] LABS: Glucose Point of Care 166 mg/dL (70-110)
[2025-01-28] MEDS: divalproex DR 250 mg Tablet PO (18:17)
[2025-01-28 21:29] LABS: Glucose Point of Care 196 mg/dL (70-110)
[2025-01-29] VITALS (9 sets, daily range): BP systolic 148–193; BP diastolic 75–107; PULSE 73–84; RESP 16–18; TEMP 36.6–37.3; O2SAT 94–98; BMI 29.8
[2025-01-29] MEDS: albuterol 2.5 mg/3 mL Neb INHALATION (01:09)
[2025-01-29] MEDS: sevelamer 800 mg Tablet PO ×3 (06:05→17:16)
[2025-01-29 06:51] LABS: Glucose Point of Care 105 mg/dL (70-110)
[2025-01-29 08:14] LABS: Anion Gap 17.8 (5-19); Blood Urea Nitrogen 54 mg/dL (6-20); Carbon Dioxide 23 mmol/L (22-29); Chloride 99 mmol/L (98-107); Creatinine Clr Calc Pharmacy 20.4562; Glomerular Filtration Rate 15.5 mL/min (90-130); Glucose 116 mg/dL (65-115); Osmolality Calculated 296 mOsm/kg (285-295); Potassium 4.8 mmol/L (3.5-5.1); Sodium 135 mmol/L (136-145)
[2025-01-29] MEDS: aspirin 81 mg EC Tablet PO (08:45)
[2025-01-29] MEDS: b-complex-vitamin c Tablet 1 EACH PO (08:45)
[2025-01-29] MEDS: tamsulosin 0.4 mg Capsule PO (08:45)
[2025-01-29] MEDS: isosorbide mononitrate ER 30 mg Tablet PO (08:45)
[2025-01-29] MEDS: fluconazole 100 mg Tablet 200 MG PO (08:45)
[2025-01-29] MEDS: hyDRALAzine 50 mg Tablet 75 MG PO ×3 (08:45→20:55)
[2025-01-29] MEDS: ezetimibe 10 mg Tablet PO (08:45)
[2025-01-29] MEDS: pantoprazole DR 40 mg Tablet PO ×2 (08:46→17:16)
[2025-01-29] MEDS: losartan 50 mg Tablet 25 MG PO (08:46)
[2025-01-29] MEDS: metoprolol tartrate 50 mg Tablet PO ×2 (08:51→20:55)
[2025-01-29] MEDS: heparin, porcine 1,000 unit/mL INJ 10 mL 1000 UNIT IV (09:41)
[2025-01-29] MEDS: heparin, porcine 1,000 unit/mL INJ 10 mL 10000 UNIT INTRACATH (09:41)
[2025-01-29 12:21] LABS: Glucose Point of Care 185 mg/dL (70-110)
[2025-01-29] MEDS: insulin lispro 100 unit/1 mL SUBCUT ×3 (12:23→20:55)
--- NOTE | 2025-01-29 14:53 | PM.PN ---
Subjective Subjective: 59-year-old male with stage V CKD, HFpEF, chronic hypoxic respiratory failure (on baseline 5L NC), HTN, DM2, anemia, and bipolar disorder who was initially admitted on 12/30 for acute on chronic volume overload and decompensated HFpEF. He improved with continuous IV diuresis and was discharged in stable condition on 01/13. He was readmitted on 01/15 with generalized weakness, worsening edema, and acute renal decompensation (Cr 8.0, BUN 77, AG 20.5), along with signs of volume overload and bilateral airspace disease. He displayed mood lability and difficulty engaging in care discussions, consistent with his known psychiatric history. He acknowledged likely progression to ESRD and agreed to initiate hemodialysis after nephrology and surgical consultation. A tunneled dialysis catheter was placed. Oxygen requirement remains stable at 5-6L NC. Troponin was elevated but stable attributed to demand ischemia in the setting of ESRD. Dictating Machine Mechanic recommended continuation of aspirin, statin, and beta-coco. Hospital course has been further complicated by progressive anemia (Hb bj 6.5), requiring transfusion with improvement to 8.6. Iron studies and nutritional labs reviewed. Hemoccult positive; CT A/P without overt bleeding source. EGD and colonoscopy were recommended but declined by patient despite counseling. He expressed fear of the procedure and became verbally abusive during discussion to multiple physician prior to assuming care. Psychiatry evaluated and confirmed decisional capacity without evidence of acute psychiatric decompensation. He remains clinically stable, with improving volume status, adequate oxygenation on 5L NC.. He has limited social support and lives alone. Case management is coordinating outpatient dialysis and follow-up. Patient continues to demonstrate significant barriers to care related to behavioral concerns and lack of engagement with medical recommendations 01/29: Hospital course, labs appreciated. Patient postdialysis today. Laying comfortably in bed. On 4 to 5 L. Denies any new complaints. Seems frustrated for being in the hospital for so long. Vitals/I&O/Wt Last Vital Signs Temp 98.1 F 01/29/25 12:00 Pulse 73 01/29/25 12:00 Resp 16 01/29/25 12:00 BP 148/75 01/29/25 12:00 Pulse Ox 95 01/29/25 12:00 O2 Del Method Nasal Cannula 01/29/25 12:00 O2 Flow Rate 4 01/29/25 01:09 01/28/25 01/29/25 01/29/25 22:59 06:59 14:59 Intake Total 840 / 1440 120 / 1560 1340 / 1340 Output Total 4000 / 4000 Balance 840 / 1440 120 / 1560 -2660 / -2660 Weight last 48 hrs Weight 83.1 kg Weight 83.915 kg Weight 83.915 kg Physical Exam Narrative: Vital signs noted. HEENT normocephalic atraumatic. Neck is supple no JVP. Rt IJ PC Lungs- improved air movement b/l Heart regular positive S1-S2. Abdomen is soft positive bowel sounds. Extremities decreased bilateral edema scrotal edema. Neuro awake alert oriented x 3 and no asterixis Data 01/27/25 16:50 01/29/25 07:48 A&P Assessment and plan (1) End-stage renal disease (ESRD): Plan 1. End-Stage Renal Disease CKD has progressed to ESRD; biopsy revealed nodular diabetic glomerulosclerosis Creatinine peaked at 8.0, BUN 77. Initiated hemodialysis on 01/16 during current admission Likely to transition to a //Tue outpatient dialysis schedule upon discharge. Case managment assisting on arranging outpatient HD Sevelemer 800 mg TIDAC Plan: Proceed with inpatient hemodialysis as per nephrology Monitor electrolytes, renal function, and fluid status closely. Coordinate with case management and nephrology for transition to outpatient HD post-discharge (anticipated //Tue schedule). - NO change to above management 2. Decompensated Heart Failure with Preserved Ejection Fraction (HFpEF) / Acute on chronic respiratory failure with hypoxemia / Elevated troponin suspected demand ischemia Presented with worsening dyspnea, LE edema, and bilateral airspace disease with small pleural effusions. Persistent symptoms with current O2 requirement of 5L nasal cannula. BNP elevated, likely multifactorial from chronic HFpEF and volume overload in ESRD. Troponins elevated Dictating Machine Mechanic consulted and recommended continuation of medical therapy. Plan: Continue fluid restriction Continue Metoprolol 50 mg BID and fluid management with HD Aspirin 81 mg daily(restarted on ), lipitor 80 mg daily(Held- unclear as to why this was held), imdur 30 mg daily and losartan 25 mg daily and zetia 10 mg po daily Oxygen weaned to 4l today - has been between 4-5L Monitor daily weights and fluid balance. No need for further serial troponins unless symptoms change. Has oxygen set up already at home - No change to above management 3 Anemia Hemoglobin dropped to 6.5, improved to 8.6 post-transfusion. Hemoglobin now has been stable Surgery was consulted and according to surgeon patient has refused EGD/Colonoscpy. No new labs today. Periodically checking given no active bleeding. Positive hemoccult test In setting of ESRD Plan: Completed IV Iron. Hemoglobin has alfredo stable Surgery consulted. Patient declined EGD and colonoscopy. Aspirin was restarted on , no bleeding - No change to above management. 4. Hypertension BP has been increasing with now SBP > 200 at times. Hydralazine 50 mg TID Imdur 30 mg daily Losartan 25 mg daily - increase to 50 today Metoprolol 50 mg daily Plan: Improving will continue to titrate for optimal control Losartan increased to 50 mg today Disposition: Prolonged hospitalization due to outpatient dialysis arrangement. Plan for the day: Continue hemodialysis as per nephrology team. Goal blood pressure less than 140/90 mmHg. Blood pressure so far stable on metoprolol 50 mg twice daily, hydralazine 75 mg 3 times daily, Imdur 30 mg oral daily. Hemoglobin not checked in few days. In past patient had refused EGD and colonoscopy even after multiple counseling with multiple providers. Continue with Protonix twice daily. Social discord: Discussed in detail with the patient that unfortunately no dialysis center is currently excepting him and case management for now is trying to get him to set up with an outpatient dialysis center at the [facility] and other cities and towns in the [facility] [place]. Patient states he is agreeable to relocate as needed as far as it is in the [facility] [place] and is out of the state he is concerned his insurance would not cover dialysis. Explained to the patient that it is a difficult situation and we are trying to do the best we can for his safety and medical care. Patient continues to get more frustrated during the conversation stating that he has been in the hospital for more than 1 month while he has other things to take care of. We did discuss that while outpatient safe continuous dialysis is not set up it would be unsafe to discharge him though we cannot hold him and will not hold him against his wishes. Patient continues to get more frustrated during the conversation and states he would not like the current provider to see him any further. Above information about the conversation discussed and explained to safety compliance specialist of the hospital. Above conversation also discussed in detail with patient's outpatient behavioral health nurse/caregiver. PDMP PDMP Reviewed: Not Reviewed Attestations Medical Necessity Statement*: Requires further hospitalization for management of end-stage renal disease on hemodialysis while outpatient hemodialysis centers are set up. Diagnoses End-stage renal disease (ESRD) N18.6
[2025-01-29 16:58] LABS: Glucose Point of Care 225 mg/dL (70-110)
[2025-01-29] MEDS: divalproex DR 250 mg Tablet PO (17:16)
[2025-01-29 20:39] LABS: Glucose Point of Care 238 mg/dL (70-110)
--- NOTE | 2025-01-29 21:28 | P.PN_ITS ---
Subjective 2 Subjective: no new c/o Medications: Reviewed: Yes Vitals/I&O/Wt Last Vital Signs Temp 98.3 F 01/29/25 20:27 Pulse 84 01/29/25 20:27 Resp 16 01/29/25 20:27 BP 182/90 01/29/25 20:27 Pulse Ox 98 01/29/25 20:27 O2 Del Method Nasal Cannula 01/29/25 20:27 O2 Flow Rate 5 01/29/25 20:27 01/29/25 01/29/25 01/29/25 06:59 14:59 22:59 Intake Total 120 / 1560 1340 / 1340 Output Total 4000 / 4000 Balance 120 / 1560 -2660 / -2660 Weight last 48 hrs Weight 83.1 kg Weight 83.915 kg Weight 83.915 kg Physical Exam 2 Narrative: Vital signs noted. HEENT normocephalic atraumatic. Neck is supple no JVP. Rt IJ PC Lungs- improved air movement b/l Heart regular positive S1-S2. Abdomen is soft positive bowel sounds. Extremities decreased bilateral edema scrotal edema. Neuro awake alert oriented x 3 and no asterixis Data 01/27/25 16:50 01/29/25 07:48 A&P Assessment and plan (1) End-stage renal disease (ESRD): now HD dependent Plan 59-year-old gentleman with diabetes obesity hypertension grade 2 out of 4 diastolic dysfunction progressive renal insufficiency with renal biopsy showing recent ATN and diabetic nephrosclerosis. 1. ESRD-the patient has progressed to end-stage renal disease. The patient initiated hemodialysis on 01-16 and s/p HD tuesday Next HD today 2. Anemia- iron sat of 22%, ferritin of 129. s/p IV Iron , YANCY with HD 3. Renal bone mineral metabolism Phosphorus is improving. PTH is 201. Vitamin D is undetectable. Start vitamin D replacement. 4. Blood pressure now low to normal. 5. Elevated BNP due to combination of acute on chronic heart failure with preserved EF exacerbation and from diabetic nephrosclerosis progressing to ESRD. The plan was discussed in detail with the patient and his behavioral health network security consultant. Appreciate psychiatry evaluation. The patient was seen and examined with the aid of a nurse using audiovisual equipment. The patient consents to telehealth and to hemodialysis and will attempt to behave appropriately on dialysis. PDMP PDMP Reviewed: Not Reviewed Attestations 2 Medical Necessity Statement*: per medicine Coding Level of Care Code Acute Code for Chg Fwd Diagnoses End-stage renal disease (ESRD) N18.6
[2025-01-30 01:23] VITALS: BP 156/78; PULSE 72; RESP 16; TEMP 36.6; O2SAT 97
[2025-01-30 05:20] LABS: Basophils # 0.2 10^3/uL (0.0-0.1); Basophils % 2.5 %; Eosinophils # 0.4 10^3/uL (0.0-0.8); Eosinophils % 4.5 %; Hematocrit 31.2 % (37-53); Lymphocytes # 1.4 10^3/uL (0.8-4.8); Lymphocytes % 15.2 %; Mean Corpuscular HGB Conc 30.1 g/dL (30-55); Mean Corpuscular Hemoglobin 28.5 pg (27-33); Mean Corpuscular Volume 94.5 fl (82-101); Monocytes # 0.8 10^3/uL (0.2-0.9); Monocytes % 8.9 %; Neutrophils # 6.37 10^3/uL (1.8-7.7); Neutrophils % 68.7 %; Nucleated Red Blood Cells % 0 %; Platelet Count 291 10^3/cmm (157-399); Red Cell Distribution Width 14.7 % (12.1-15.1); White Blood Count 9.28 10^3/uL (3.29-11.43)
[2025-01-30 05:40] LABS: Alanine Aminotransferase 8 U/L (0-41); Albumin Level 3.8 g/dL (3.5-5.2); Alkaline Phosphatase 81 U/L (40-130); Aspartate Amino Transferase 16 U/L (0-40); Blood Urea Nitrogen 46 mg/dL (6-20); Calcium 8.2 mg/dL (8.5-10.5); Carbon Dioxide 26 mmol/L (22-29); Chloride 103 mmol/L (98-107); Creatinine Clr Calc Pharmacy 22.0144; Globulin 3.8 g/dL (1.3-4.6); Glucose 131 mg/dL (65-115); Osmolality Calculated 304 mOsm/kg (285-295); Sodium 140 mmol/L (136-145); Total Bilirubin 0.2 mg/dL (0.15-1.2); Total Protein 7.6 g/dL (6.6-8.7)
[2025-01-30 05:59] LABS: Anion Gap 15.9 (5-19); Potassium 4.9 mmol/L (3.5-5.1)
[2025-01-30] MEDS: sevelamer 800 mg Tablet PO ×2 (06:37→17:50)
[2025-01-30 06:40] LABS: Glucose Point of Care 225 mg/dL (70-110)
[2025-01-30 07:50] VITALS: BP 185/74; PULSE 77; RESP 18; TEMP 36.7; O2SAT 92
[2025-01-30] MEDS: b-complex-vitamin c Tablet 1 EACH PO (09:39)
[2025-01-30] MEDS: insulin lispro 100 unit/1 mL SUBCUT ×2 (09:39→17:51)
[2025-01-30 09:40] VITALS: BP 185/74
[2025-01-30] MEDS: ezetimibe 10 mg Tablet PO (09:40)
[2025-01-30] MEDS: isosorbide mononitrate ER 30 mg Tablet PO (09:40)
[2025-01-30] MEDS: aspirin 81 mg EC Tablet PO (09:40)
[2025-01-30] MEDS: tamsulosin 0.4 mg Capsule PO (09:40)
[2025-01-30] MEDS: losartan 50 mg Tablet 25 MG PO (09:40)
[2025-01-30] MEDS: pantoprazole DR 40 mg Tablet PO ×2 (09:40→17:50)
[2025-01-30] MEDS: hyDRALAzine 50 mg Tablet 75 MG PO ×2 (09:41→15:45)
[2025-01-30] MEDS: ergocalciferol (vitamin D2) 50,000 Unit Capsule 50000 UNIT PO (09:45)
[2025-01-30] MEDS: metoprolol tartrate 50 mg Tablet PO (09:45)
--- NOTE | 2025-01-30 11:19 | PM.DCS ---
Discharge Providers Date of Admission: 01/15/25 09:25 Date of Discharge: January 30, 2025 Attending Provider at Admission: Vernon Lora Attending Provider at Discharge: Terence Novoa MD Consults: Telemetry nephrology Surgery: Dr. Suárez Cardiology: Dr. Armstrong Psychiatry: Dr. Amador Primary Care Provider: Pierce Justice MD Diagnoses at Discharge Discharge Diagnosis (1) End-stage renal disease (ESRD): Status: Acute Reason for Visit Reason for Visit: WEAKNESS Hospital Course Hospital Course 59-year-old male with stage V CKD, HFpEF, chronic hypoxic respiratory failure (on baseline 5L NC), HTN, DM2, anemia, and bipolar disorder who was initially admitted on 12/30 for acute on chronic volume overload and decompensated HFpEF. He improved with continuous IV diuresis and was discharged in stable condition on 01/13. He was readmitted on 01/15 with generalized weakness, worsening edema, and acute renal decompensation (Cr 8.0, BUN 77, AG 20.5), along with signs of volume overload and bilateral airspace disease. He displayed mood lability and difficulty engaging in care discussions, consistent with his known psychiatric history. He acknowledged likely progression to ESRD and agreed to initiate hemodialysis after nephrology and surgical consultation. A tunneled dialysis catheter was placed. Oxygen requirement remains stable at 5-6L NC. Troponin was elevated but stable attributed to demand ischemia in the setting of ESRD. Patient Attendant recommended continuation of aspirin, statin, and beta-coco. Hospital course has been further complicated by progressive anemia (Hb bj 6.5), requiring transfusion with improvement to 8.6. Iron studies and nutritional labs reviewed. Hemoccult positive; CT A/P without overt bleeding source. EGD and colonoscopy were recommended but declined by patient despite counseling. He expressed fear of the procedure and became verbally abusive during discussion to multiple physician prior to assuming care. Psychiatry evaluated and confirmed decisional capacity without evidence of acute psychiatric decompensation. He remains clinically stable, with improving volume status, adequate oxygenation on 5L NC. He has limited social support and lives alone. His hospital stay was prolonged as it was difficult to find an outpatient dialysis center for the patient. Multiple dialysis centers around the areas have refused to take over patient's care. Eventually further discussions were done with the administration and decision was made to transition patient to dialysis at hospital as an outpatient bed. Care were discussed in detail with [facility]. They will be willing to follow-up his labs during dialysis. He will need to have his labs done once weekly. Plan were discussed in detail with the patient and he verbalized understanding and is agreeable. He has been discharged in hemodynamically stable condition. He is to check his blood pressure daily at home and maintain a blood pressure diary. He should follow-up with his primary care provider within next 2 weeks. Physical Exam Narrative: Vital signs noted. HEENT normocephalic atraumatic. Neck is supple no JVP. Rt IJ PC Lungs- improved air movement b/l Heart regular positive S1-S2. Abdomen is soft positive bowel sounds. Extremities decreased bilateral edema scrotal edema. Neuro awake alert oriented x 3 and no asterixis Discharge Data Studies Completed and Pending Completed Studies During Hospitalization Category Date Time Status CT chest abdomen pelvis [[place] [id number] Cat Scan 01/18/25 10:21 Completed ] Urgent XR chest 1V portable [id number] Stat Exams 01/15/25 04:43 Completed CV. echo limited [id number] Routine Ultrasound 01/15/25 13:16 Completed Radiology Impressions Chest X-Ray 01/15/25 04:43 IMPRESSION: 1. Bilateral mid and lower lung zone airspace disease, increased on the right. 2. Small bilateral pleural effusions, increased on the right. C-Arm Fluoroscopy 01/16/25 09:23 Impression: Insertion right dialysis catheter. Chest/Abdomen/Pelvis CT 01/18/25 10:21 IMPRESSION: Nonspecific lung findings which can be seen in multifocal infection, CHF, correlate clinically. IMPRESSION: 1. Findings compatible with third-spacing of fluid. Correlate for underlying conditions such as CHF, renal failure. 2. Decompressed gallbladder with diffusely thickened khanna, differential include CHF/third-spacing of fluid, hepatic viral infection. Correlate clinically. Consider right upper quadrant ultrasound for further assessment. Laboratory Results WBC 9.28 10^3/uL (3.29-11.43) 01/30/25 04:50 RBC 3.30 10^6/uL (3.85-5.65) L 01/30/25 04:50 Hgb 9.40 g/dL (11.27-16.99) L 01/30/25 04:50 Hct 31.2 % (37-53) L 01/30/25 04:50 MCV 94.5 fl (82-101) 01/30/25 04:50 MCH 28.5 pg (27-33) 01/30/25 04:50 MCHC 30.1 g/dL (30-55) 01/30/25 04:50 RDW 14.7 % (12.1-15.1) 01/30/25 04:50 Plt Count 291 10^3/cmm (157-399) 01/30/25 04:50 MPV 10.0 fL (7.4-10.4) 01/30/25 04:50 Neut % (Auto) 68.7 % 01/30/25 04:50 Lymph % (Auto) 15.2 % 01/30/25 04:50 [place] % (Auto) 8.9 % 01/30/25 04:50 Eos % (Auto) 4.5 % 01/30/25 04:50 Baso % (Auto) 2.5 % 01/30/25 04:50 Neut # (Auto) 6.37 10^3/uL (1.8-7.7) 01/30/25 04:50 Lymph # (Auto) 1.4 10^3/uL (0.8-4.8) 01/30/25 04:50 [place] # (Auto) 0.8 10^3/uL (0.2-0.9) 01/30/25 04:50 Eos # (Auto) 0.4 10^3/uL (0.0-0.8) 01/30/25 04:50 Baso # (Auto) 0.2 10^3/uL (0.0-0.1) H 01/30/25 04:50 Nucleated RBC % (auto) 0 % 01/30/25 04:50 Nucleated RBCs # 0.0 /100WBC 01/30/25 04:50 Sodium 140 mmol/L (136-145) 01/30/25 04:50 Potassium 4.9 mmol/L (3.5-5.1) 01/30/25 04:50 Chloride 103 mmol/L (98-107) 01/30/25 04:50 Carbon Dioxide 26 mmol/L (22-29) 01/30/25 04:50 Anion Gap 15.9 (5-19) 01/30/25 04:50 BUN 46 mg/dL (6-20) H 01/30/25 04:50 Creatinine 3.7 mg/dL (0.7-1.2) H 01/30/25 04:50 GFR Calculation 17.0 mL/min (90-130) L 01/30/25 04:50 Glucose 131 mg/dL (65-115) H 01/30/25 04:50 POC Glucose 225 mg/dL (70-110) H 01/30/25 06:27 Calculated Osmolality 304 mOsm/kg (285-295) H 01/30/25 04:50 Lactic Acid 0.8 mmol/L (0.5-2.2) 01/15/25 05:30 Uric Acid 10.0 mg/dL (3.4-7.0) H 01/15/25 05:30 Calcium 8.2 mg/dL (8.5-10.5) L 01/30/25 04:50 Phosphorus 3.7 mg/dL (2.5-4.5) 01/21/25 07:51 Magnesium 1.9 mg/dL (1.7-2.3) 01/21/25 07:51 Iron 40 ug/dL (59-158) L 01/16/25 03:41 TIBC 179 mcg/dl 01/16/25 03:41 % Saturation 22.3 % (20-50) 01/16/25 03:41 Unsat Iron Binding 139 ug/dL (112-347) 01/16/25 03:41 Ferritin 129 ng/mL (30-400) 01/16/25 03:41 Total Bilirubin 0.2 mg/dL (0.15-1.2) 01/30/25 04:50 AST 16 U/L (0-40) 01/30/25 04:50 ALT 8 U/L (0-41) 01/30/25 04:50 Alkaline Phosphatase 81 U/L (40-130) 01/30/25 04:50 Troponin T Baseline 328 ng/L (0-15) H* 01/15/25 05:30 Troponin T 120 Minute 302.5 ng/L (0-15) H 01/15/25 07:42 Delta Troponin T -25.5 ABS# (0-10) L 01/15/25 07:42 Troponin T Hi Sens 6Hr 310.6 ng/L (0-15) H 01/15/25 11:30 Troponin T Hi Sens 6Hr Delta -17.4 ng/L (0-12) L 01/15/25 11:30 NT-Pro-B Natriuret Pep 71777 pg/mL (0-125) H 01/15/25 05:30 Total Protein 7.6 g/dL (6.6-8.7) 01/30/25 04:50 Albumin 3.8 g/dL (3.5-5.2) 01/30/25 04:50 Globulin 3.8 g/dL (1.3-4.6) 01/30/25 04:50 25-OH Vitamin D Total 6 ng/mL (30-100) L 01/16/25 03:41 Procalcitonin 0.55 ng/mL (0-0.5) H 01/15/25 05:30 PTH Intact 201.7 pg/mL (15-65) H 01/16/25 03:41 Calcium (PTH Intact) 7.3 mg/dL (8.5-10.5) L 01/16/25 03:41 Urine Color Yellow (Yellow) 01/15/25 17:25 Urine Appearance Clear (CLEAR) 01/15/25 17: Urine pH 5.0 (5-7) 01/15/25 17:25 Ur Specific [place] 1.013 (1.005-1.030) 01/15/25 17:25 Urine Protein 3+ (Negative) A 01/15/25 17:25 Urine Glucose (UA) Negative (Normal) 01/15/25 17:25 Urine Ketones Negative (Negative) 01/15/25 17:25 Urine Blood 1+ (Negative) A 01/15/25 17:25 Urine Nitrate Negative (Negative) 01/15/25 17:25 Urine Bilirubin Negative (Negative) 01/15/25 17:25 Urine Urobilinogen 0.2 mg/dL (Negative) 01/15/25 17:25 Ur Leukocyte Esterase Negative (Negative) 01/15/25 17:25 Urine RBC 0-2 /hpf (0-2) 01/15/25 17:25 Urine WBC 0-5 /hpf (0-5) 01/15/25 17:25 Ur Squamous Epith Cells 0-5 /hpf (0-5) 01/15/25 17:25 Amorphous Sediment 1+ /hpf 01/15/25 17:25 Urine Bacteria None seen /hpf (NONE) 01/15/25 17:25 Hyaline Casts 50.46 /lpf 01/15/25 17:25 Fine Granular Casts 0-4 /lpf H 01/15/25 17:25 Hep Bs Antigen Non-reactive (Nonreactive) 01/15/25 05:30 Hep Bs Antibody < 3.5 (11.5-1000) L 01/15/25 05:30 Hepatitis C Antibody Non-reactive (Nonreactive) 01/15/25 05:30 Influenza A (PCR) Negative (Negative) 01/15/25 05:30 Influenza Type B (PCR) Negative (Negative) 01/15/25 05:30 RSV (PCR) Negative (Negative) 01/15/25 05:30 SARS-CoV-2 (PCR) Negative (Negative) 01/15/25 05:30 Blood Type A Positive 01/18/25 06:23 Rho(D) Type Rh positive 01/18/25 06:23 Antibody Screen Negative 01/18/25 06:23 Crossmatch See Detail 01/18/25 06:23 Vitals Last Vital Signs Temp 98.1 F 01/30/25 07:50 Pulse 77 01/30/25 07:50 Resp 18 01/30/25 07:50 BP 185/74 01/30/25 09:40 Pulse Ox 92 01/30/25 07:50 O2 Del Method Nasal Cannula 01/30/25 07:50 O2 Flow Rate 5 01/29/25 20:27 Discharge Plan Discharge Patient Disposition: Home Health Service Condition: Stable Prescriptions: New losartan 50 mg Tablet 50 mg PO DAILY Qty: 30 0RF isosorbide mononitrate 30 mg Tablet Extended Release 24 Hr 30 mg PO DAILY 30 Days Qty: 30 0RF metoprolol tartrate 50 mg Tablet 50 mg PO BID@0900,2100 30 Days Qty: 60 0RF hydralazine 50 mg Tablet 75 mg PO TID 30 Days Qty: 135 0RF Continued pantoprazole 40 mg tablet,delayed release (DR/EC) 40 mg PO DAILY glipizide 5 mg tablet extended release 24hr 5 mg PO DAILY Qty: 30 0RF tamsulosin [Flomax] 0.4 mg capsule 0.4 mg PO DAILY Qty: 30 1RF divalproex [Depakote] 250 mg tablet,delayed release (DR/EC) 250 mg PO .7 pm Qty: 30 2RF aspirin 81 mg Tablet,Delayed Release (Dr/Ec) 81 mg PO DAILY Qty: 90 0RF atorvastatin 80 mg tablet 80 mg PO QPM albuterol sulfate 2.5 mg /3 mL (0.083 %) solution for nebulization 2.5 mg inhalation Q4H PRN (Reason: Shortness Of Breath) sodium bicarbonate 650 mg Tablet 650 mg PO TID 30 Days Qty: 90 1RF sevelamer carbonate 800 mg Tablet 800 mg PO TID 30 Days Qty: 90 1RF bumetanide 2 mg tablet 2 mg PO BIDAC Qty: 60 1RF oxycodone-acetaminophen 5-325 mg Tablet 1 tab PO Q4H PRN (Reason: Severe Pain) 7 Days Qty: 20 0RF ezetimibe 10 mg tablet 10 mg PO DAILY Discontinued nifedipine 30 mg Tablet Extended Release 24hr 30 mg PO BEDTIME 30 Days Qty: 30 1RF carvedilol 6.25 mg Tablet 6.25 mg PO BID 30 Days Qty: 60 1RF fluconazole [Diflucan] 200 mg tablet 200 mg PO DAILY 14 Days Qty: 14 0RF Discharge Orders: Discharge Order (Routine); Ordered 01/30/25 Ordered By: Terence Novoa Referrals: Hemodialysis at [facility] [Other] (You will need to follow up at Outpt Surgery entrance to check in to have dialysis on Mondays, Tuesday, & Fridays here at [facility] on the 2nd floor at 0730. ) [facility] [Outside] Pierce Justice MD [Primary Care Provider] - 03/05/25 9:30 am Discharge Diet: As Directed Discharge Activity: Resume usual activity and Increase activity as tolerated Patient Instructions: Metoprolol (By mouth), Hydralazine (By mouth), Losartan (By mouth), Dialysis Nutrition Plan (DC), Hemodialysis (DC), Opioid Safety Activity Restrictions/Additional Instructions: Renal diabetic diet. Continue to follow-up on dialysis schedule of Tuesday, , Tuesday. You will need to have weekly labs which will be followed up with nephrology team. Discharge Attestations Time Spent in Discharge Care*: greater than 30 min Specific Discharge Activities: educating patient, educating and/or supporting family/caregiver, discussing with pcp/other providers, discussing with telephonic nurse case manager/social workers/dc planners, documenting/other paperwork and evaluating patient/reviewing data Status at Discharge: Cognitive status at discharge: cognitively intact, Behavioral status at discharge: cooperative, Quality Metrics Clinical Quality Measures [ No reported AMI, CVA or VTE this stay] Coding Level of Care Code 56960 Total time (in minutes) for Discharge: 60 Diagnoses End-stage renal disease (ESRD) N18.6
[2025-01-30 11:36] VITALS: BP 179/71; PULSE 75; RESP 16; TEMP 36.4; O2SAT 97
[2025-01-30 11:36] LABS: Glucose Point of Care 126 mg/dL (70-110)
--- NOTE | 2025-01-30 13:45 | PC.SOCIAL ---
IMM updated Updated pt on IMM. No questions voiced. Provided pt a copy. Initialed, dated, & timed a copy & placed in chart.
--- NOTE | 2025-01-30 15:38 | P.PN_ITS ---
Subjective 2 Subjective: no new c/o Medications: Reviewed: Yes Vitals/I&O/Wt Last Vital Signs Temp 97.6 F 01/30/25 11:36 Pulse 75 01/30/25 11:36 Resp 16 01/30/25 11:36 BP 179/71 01/30/25 11:36 Pulse Ox 97 01/30/25 11:36 O2 Del Method Nasal Cannula 01/30/25 11:36 O2 Flow Rate 5 01/29/25 20:27 01/30/25 01/30/25 01/30/25 06:59 14:59 22:59 Intake Total 240 / 1820 1400 / 1400 Balance 240 / -2180 1400 / 1400 Weight last 48 hrs Weight 84.912 kg Weight 83.1 kg Weight 83.915 kg Physical Exam 2 Narrative: Vital signs noted. HEENT normocephalic atraumatic. Neck is supple no JVP. Rt IJ PC Lungs- improved air movement b/l Heart regular positive S1-S2. Abdomen is soft positive bowel sounds. Extremities decreased bilateral edema scrotal edema. Neuro awake alert oriented x 3 and no asterixis Data 01/30/25 04:50 01/30/25 04:50 A&P Assessment and plan (1) End-stage renal disease (ESRD): now HD dependent Plan 59-year-old gentleman with diabetes obesity hypertension grade 2 out of 4 diastolic dysfunction progressive renal insufficiency with renal biopsy showing recent ATN and diabetic nephrosclerosis. 1. ESRD-the patient has progressed to end-stage renal disease. The patient initiated hemodialysis on 3-19 HD tomorrow unable to find out pt hD spot 2. Anemia- iron sat of 22%, ferritin of 129. s/p IV Iron , YANCY with HD 3. Renal bone mineral metabolism Phosphorus is improving. PTH is 201. Vitamin D is undetectable. Started vitamin D replacement. 4. Blood pressure now low to normal. 5. Elevated BNP due to combination of acute on chronic heart failure with preserved EF exacerbation and from diabetic nephrosclerosis progressing to ESRD. The patient was seen and examined with the aid of a nurse using audiovisual equipment. The patient consents to telehealth and to hemodialysis and will attempt to behave appropriately on dialysis. PDMP PDMP Reviewed: Not Reviewed Attestations 2 Medical Necessity Statement*: per ediicne Coding Level of Care Code Acute Code for Chg Fwd Diagnoses End-stage renal disease (ESRD) N18.6
[2025-01-30 16:03] VITALS: BP 184/93; PULSE 75; RESP 16; TEMP 36.6; O2SAT 98
[2025-01-30 16:39] LABS: Glucose Point of Care 219 mg/dL (70-110)
[2025-01-30] MEDS: divalproex DR 250 mg Tablet PO (17:50)
--- NOTE | 2025-01-30 18:40 | PC.NURSE ---
pt made aware of d/c, pt stated , i don't have any shoes. pt given shoes from crisis center, pt refused shoes provided to go home with.
== END 2025-01-30 18:40 | disposition home health service (06) | DRG 291 ==
LOC: ER 08:46 → ER IP 09:26 → CSU 09:30 → MEDSURG 01-16 15:58
PROVIDERS: Emergency Medicine; Hospitalist; Internal Medicine Nephrology; Student in an Organized Health Care Education/Training Program; Admitting Provider Internal Medicine; Emergency Provider Family Medicine; PCP Family Medicine; Visit Provider Student in an Organized Health Care Education/Training Program
PROC: 0JH63XZ Insertion of Tunneled Vascular Access Device into Chest Subcutaneous Tissue and Fascia, Percutaneous Approach (ICD-10-PCS; principal; 2025-01-16 12:20)
DX: I13.2 Hypertensive heart and chronic kidney disease with heart failure and with stage 5 chronic kidney disease, or end stage renal disease (principal); I50.33 Acute on chronic diastolic (congestive) heart failure; N18.6 End stage renal disease; N17.9 Acute kidney failure, unspecified; J96.11 Chronic respiratory failure with hypoxia; F33.2 Major depressive disorder, recurrent severe without psychotic features; E11.22 Type 2 diabetes mellitus with diabetic chronic kidney disease; D63.1 Anemia in chronic kidney disease; Z79.84 Long term (current) use of oral hypoglycemic drugs; Z79.82 Long term (current) use of aspirin; Z79.891 Long term (current) use of opiate analgesic; E78.2 Mixed hyperlipidemia; Z87.01 Personal history of pneumonia (recurrent); I25.2 Old myocardial infarction; F60.9 Personality disorder, unspecified; Z99.81 Dependence on supplemental oxygen; Z87.891 Personal history of nicotine dependence; Z85.828 Personal history of other malignant neoplasm of skin; F43.12 Post-traumatic stress disorder, chronic; F12.20 Cannabis dependence, uncomplicated; R79.89 Other specified abnormal findings of blood chemistry; Z60.8 Other problems related to social environment
CPT/HCPCS: 36415; 36416; 36430; 71045; 71250; 74176; 77001; 80048; 80053; 81001; 82274; 82306; 82310; 82728; 82962; 83540; 83550; 83605; 83735; 83880; 83970; 84100; 84145; 84484; 84550; 85014; 85018; 85025; 86706; 86803; 86850; 86900; 86920; 87040; 87340; 87637; 90935; 93005; 93308; 94640; 96372; 99285; A9270; C1750; J0360; J0690; J1644; J1815; J1940; J2470; J2704; J2916; J3010; J3490; J7030; J7613; J9999; P9016; Q3014; Q5105

== ENCOUNTER 2025-02-01 07:13 | Emergency (ER) | payer MEDICARE, MEDICAID, SELFPAY ==
[2024-12-26 13:42] VITALS: BMI 29.2
[2025-02-01 07:22] VITALS: BP 182/105; PULSE 82; RESP 16; TEMP 36.7; BMI 30.7
--- NOTE | 2025-02-01 07:37 | ED_ITS ---
HPI - General Adult 2 General: Chief complaint: General Medical Stated complaint: dialysis Time Seen by Provider: 02/01/25 07:19 History of Present Illness: 52-year-old male presents to the emergen cy room for evaluation of his chronic kidney disease. He is on hemodialysis. He was discharged yesterday after an extended hospital stay. There were some social issues complicating his care and they were unable to get him established with a outpatient dialysis clinic. Currently the plan is to have labs done in the emergency room once a week for the telemetry nephrology group to review them and advise. He is currently scheduled to get dialysis as outpatient in a bed. Patient is on 6 L by nasal cannula on arrival here he has not noticed any increased swelling or worsening shortness of breath. According to his discharge summary from January 30 he was discharged home on 5 to 6 L by nasal cannula. Associated symptoms: Reports dyspnea; Deny chest pain or rash Related Data Home Medications ?Medication ?Instructions ?Recorded ?Confirmed pantoprazole 40 mg tablet,delayed 40 mg PO DAILY 12/0602/01/25 release ezetimibe 10 mg tablet 10 mg PO DAILY 01/03/2502/22 albuterol sulfate 2.5 mg/3 mL 2.5 mg inhalation Q4H TX N 01/06/25 02/01/25 (0.083 %) solution for nebulization Shortness Of Breat h atorvastatin 80 mg tablet 80 mg PO QPM 01/06/25 Previous Rx's ?Medication ?Instructions ?Recorded aspirin 81 mg tablet,delayed 81 mg PO DAILY #90 tabs 1 12/07/23 release divalproex 250 mg tablet,delayed 250 mg PO .7 pm #30 t abs 11/26/24 release (Depakote) glipizide 5 mg tablet, extended 5 mg PO DAILY #30 tabs 12/25/24 release 24 hr bumetanide 2 mg tablet 2 mg PO BIDAC #60 tabs 01/13 sevelamer carbonate 800 mg tablet 800 mg PO TID 30 day s #90 tabs 01/13/25 sodium bicarbonate 650 mg tablet 650 mg PO TID 30 days #90 tabs 01/13/25 tamsulosin 0.4 mg capsule (Flomax) 0.4 mg PO DAILY #30 caps 01/14/25 hydralazine 50 mg tablet 75 mg (1.5 x 50 mg) PO TID 3 0 days 01/30/25 #135 tabs isosorbide mononitrate 30 mg 30 mg PO DAILY 30 days #3 0 tabs 01/30/25 tablet,extended release 24 hr losartan 50 mg tablet 50 mg PO DAILY #30 tabs 12/25 metoprolol tartrate 50 mg tablet 50 mg PO BID@0900,210 0 30 days #60 01/30/25 tabs Allergies Allergy/AdvReac Type Severity Reaction Status Date / Time No Known Allergies Allergy Verified 01/15/25 04:45 Review of Systems 2 Const: Denies: fever(s) or chills Card: Reports: dyspnea on exertion and orthopnea; Denies: chest pain, edema or swelling of feet/ankles Resp: Reports: dyspnea GI: Denies: abdominal pain : Denies: dysuria, urinary frequency or urinary urgency Musc: Denies: neck pain or back pain Skin/Breast: Denies: rash PFSH ED 2 PFSH: Medical History Anemia Bipolar II disorder Essential hypertension Volume overload Type 2 diabetes mellitus Glomerulosclerosis Renal biopsy: Pathology: Nodular diabetic glomerulosclerosis class III, ATN. (HFpEF) heart failure with preserved eje ction fraction Poor compliance with medication CKD (chronic kidney disease), stage V Influenza Acute on chronic renal failure Acute hypoxemic respiratory failure Community acquired pneumonia HALIE (acute kidney injury) Non-STEMI (non-ST elevated myocardial infarction) Hyperglycemia Hammertoe of right foot Callus of heel Blurred vision CKD (chronic kidney disease) stage V requiring chronic dialysis Nicotine dependence, cigarettes, uncomplicated Bereavement Mother in February 2024 Cannabis use disorder, moderate, dependence Chronic post-traumatic stress disorder Impaired visual perception Psychiatric care 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 Social History Smoking and tobacco/nicotine status: former use of tobacco/nicotine Alcohol intake: former Adopted: No Caregiver/support person: No Lives independently: Yes Household members: none Housing: Apartment Marital status: Number of children: 1 Highest education level completed: High School Graduate service: No Current occupational status: disabled Current occupational exposures/hazards: No Pets and animals: Yes Pets & animals: cat(s) and dog(s) Leisure activites: other Leisure activities details: play music Sexually active: No Do you think of yourself as: Straight/Heterosexual Current gender identity: Male Carmita/Roman Catholic: Restoration Special carmita needs: No Agree to transfusion: Yes Physical Exam 2 Const: GENERAL APPEARANCE: cooperative ORIENTATION/CONSCIOUSNESS: Yes awake, Yes oriented to person, Yes oriented to place and Yes oriented to time HENMT: COMMON NORMALS: normocephalic, atraumatic and hearing grossly normal bilaterally HEAD & SCALP: normocephalic and atraumatic Resp: COMMON NORMALS: normal respiratory effort, No retractions and No use of accessory muscles AUSCULTATION: crackles Cardio: COMMON NORMALS: regular rate, regular rhythm and No murmurs present (Cardio) RATE: regular rate RHYTHM: regular rhythm GI: COMMON NORMALS: Soft to palpation and No hepatosplenomegaly present A USCULTATION: Yes normoactive bowel sounds PALPATION: Yes Soft to palpation, No Tenderness to palpation present (GI), No Guarding due to palpation present (GI) and Yes No hepatosplenomegaly present Extremity: COMMON NORMALS: normal to inspection, capillary refill normal, no clubbing, cyanosis or edema, no calf tenderness and no pedal edema Neuro: SENSORIUM/ORIENTATION: Yes oriented to person, Yes oriented to place and Yes oriented to time Skin: COMMON NORMALS: no rashes or lesions noted GENERAL SKIN EXAM: no rashes or lesions noted Course 2 Vital Signs: Vital signs: Vital Signs Temperature 98.0 F 02/01/25 07:22 Pulse Rate 82 02/01/25 07:22 Respiratory Rate 16 02/01/25 07:22 Blood Pressure 182/105 02/01/25 07:22 Oxygen Delivery Me thod Nasal Cannula 02/01/25 07:22 Oxygen Flow Rate 6 02/01/25 07:22 MDM - General Adult Medical Decision Making Due to social issues involving the patient we cannot establish him anywhere to have regular outpatient dialysis he presents back to the emergency room he is in need of dialysis I discussed with the clicking machine operator they will plan on doing his dialysis today as outpatient in a bed Patient moved outpatient to bed for dialysis dialysis completed and patient discharged. Medical Records I reviewed the patient's medical records. Lab Data I reviewed the patient's lab results. 02/01/25 08:09 02/01/25 08:09 Laboratory Results WBC 7.78 10^3/uL (3.29-11.43) 02/01/25 08:09 RBC 2.98 10^6/uL (3.85-5.65) L 02/01/25 08:09 Hgb 8.60 g/dL (11.27-16.99) L 02/01/25 08:09 Hct 28.5 % (37-53) L 02/01/25 08:09 MCV 95.6 fl (82-101) 02/01/25 08:09 MCH 28.9 pg (27-33) 02/01/25 08:09 MCHC 30.2 g/dL (30-55) 02/01/25 08:09 RDW 14.6 % (12.1-15.1) 02/01/25 08:09 Plt Count 275 10^3/cmm (157-399) 02/01/25 08:09 MPV 9.9 fL (7.4-10.4) 02/01/25 08:09 Neut % (Auto) 73.8 % 02/01/25 08:09 Lymph % (Auto) 13.0 % 02/01/25 08:09 Sioux % (Auto) 6.3 % 02/01/25 08:09 Eos % (Auto) 4.4 % 02/01/25 08:09 Baso % (Auto) 2.2 % 02/01/25 08:09 Neut # (Auto) 5.75 10^3/uL (1.8-7.7) 02/01/25 08:09 Lymph # (Auto) 1.0 10^3/uL (0.8-4.8) 02/01/25 08:09 [place]oux # (Auto) 0.5 10^3/uL (0.2-0.9) 02/01/25 08:09 Eos # (Auto) 0.3 10^3/uL (0.0-0.8) 02/01/25 08:09 Baso # (Auto) 0.2 10^3/uL (0.0-0.1) H 02/01/25 08:09 Nucleated RBC % (auto) 0 % 02/01/25 08:09 Nucleated RBCs # 0.0 /100WBC 02/01/25 08:09 Sodium 138 mmol/L (136-145) 02/01/25 08:09 Potassium 4.9 mmol/L (3.5-5.1) 02/01/25 08:09 Chloride 101 mmol/L (98-107) 02/01/25 08:09 Carbon Dioxide 24 mmol/L (22-29) 02/01/25 08:09 Anion Gap 17.9 (5-19) 02/01/25 08:09 BUN 55 mg/dL (6-20) H 02/01/25 08:09 Creatinine 4.9 mg/dL (0.7-1.2) H 02/01/25 08:09 GFR Calculation 12.3 mL/min (90-130) L 02/01/25 08:09 Glucose 149 mg/dL (65-115) H 02/01/25 08:09 Calculated Osmolality 304 mOsm/kg (285-295) H 02/01/25 08:09 Calcium 8.3 mg/dL (8.5-10.5) L 02/01/25 08:09 Phosphorus 5.3 mg/dL (2.5-4.5) H 02/01/25 08:09 Magnesium 2.1 mg/dL (1.7-2.3) 02/01/25 08:09 Total Bilirubin 0.2 mg/dL (0.15-1.2) 02/01/25 08:09 AST 15 U/L (0-40) 02/01/25 08:09 ALT 8 U/L (0-41) 02/01/25 08:09 Alkaline Phosphatase 83 U/L (40-130) 02/01/25 08:09 Total Protein 7.4 g/dL (6.6-8.7) 02/01/25 08:09 Albumin 3.8 g/dL (3.5-5.2) 02/01/25 08:09 Globulin 3.6 g/dL (1.3-4.6) 02/01/25 08:09 No radiology studies performed this visit Discharge Plan Discharge Patient Disposition: Home Clinical Impression: End stage renal disease on dialysis, Anemia Condition: Stable Prescriptions: No Action pantoprazole 40 mg tablet,delayed release (DR/EC) 40 mg PO DAILY glipizide 5 mg tablet extended release 24hr 5 mg PO DAILY Qty: 30 0RF tamsulosin [Flomax] 0.4 mg capsule 0.4 mg PO DAILY Qty: 30 1RF divalproex [Depakote] 250 mg tablet,delayed release (DR/EC) 250 mg PO .7 pm Qty: 30 2RF aspirin 81 mg Tablet,Delayed Release (Dr/Ec) 81 mg PO DAILY Qty: 90 0RF atorvastatin 80 mg tablet 80 mg PO QPM albuterol sulfate 2.5 mg /3 mL (0.083 %) solution for nebulization 2.5 mg inhalation Q4H PRN (Reason: Shortness Of Breath) sodium bicarbonate 650 mg Tablet 650 mg PO TID 30 Days Qty: 90 1RF sevelamer carbonate 800 mg Tablet 800 mg PO TID 30 Days Qty: 90 1RF bumetanide 2 mg tablet 2 mg PO BIDAC Qty: 60 1RF losartan 50 mg Tablet 50 mg PO DAILY Qty: 30 0RF isosorbide mononitrate 30 mg Tablet Extended Release 24 Hr 30 mg PO DAILY 30 Days Qty: 30 0RF metoprolol tartrate 50 mg Tablet 50 mg PO BID@0900,2100 30 Days Qty: 60 0RF hydralazine 50 mg Tablet 75 mg PO TID 30 Days Qty: 135 0RF ezetimibe 10 mg tablet 10 mg PO DAILY Discharge Orders: Discharge ED (Routine); Ordered 02/01/25 Ordered By: Brian Escudero Referrals: Pierce Justice MD [Primary Care Provider] - Patient Instructions: Opioid Safety, Pain Management Activity Restrictions/Additional Instructions: Thank you for choosing [facility] for your healthcare needs today. It is very important that you follow up as instructed or that you return to the Emergency Department should you have concerns or if your condition changes or worsens in any way. Print Language: Niuean Coding Level of Care Code ED [facility] for Sandro Foster
[2025-02-01 08:22] LABS: Basophils # 0.2 10^3/uL (0.0-0.1); Basophils % 2.2 %; Eosinophils # 0.3 10^3/uL (0.0-0.8); Eosinophils % 4.4 %; Hematocrit 28.5 % (37-53); Mean Corpuscular HGB Conc 30.2 g/dL (30-55); Mean Corpuscular Hemoglobin 28.9 pg (27-33); Mean Corpuscular Volume 95.6 fl (82-101); Mean Platelet Volume 9.9 fL (7.4-10.4); Monocytes # 0.5 10^3/uL (0.2-0.9); Monocytes % 6.3 %; Neutrophils # 5.75 10^3/uL (1.8-7.7); Neutrophils % 73.8 %; Nucleated Red Blood Cells % 0 %; Platelet Count 275 10^3/cmm (157-399); Red Blood Count 2.98 10^6/uL (3.85-5.65); Red Cell Distribution Width 14.6 % (12.1-15.1); White Blood Count 7.78 10^3/uL (3.29-11.43)
[2025-02-01 08:42] LABS: Alanine Aminotransferase 8 U/L (0-41); Albumin Level 3.8 g/dL (3.5-5.2); Alkaline Phosphatase 83 U/L (40-130); Anion Gap 17.9 (5-19); Aspartate Amino Transferase 15 U/L (0-40); Blood Urea Nitrogen 55 mg/dL (6-20); Calcium 8.3 mg/dL (8.5-10.5); Carbon Dioxide 24 mmol/L (22-29); Chloride 101 mmol/L (98-107); Creatinine Clr Calc Pharmacy 16.9098; Globulin 3.6 g/dL (1.3-4.6); Glomerular Filtration Rate 12.3 mL/min (90-130); Glucose 149 mg/dL (65-115); Magnesium 2.1 mg/dL (1.7-2.3); Osmolality Calculated 304 mOsm/kg (285-295); Phosphorus 5.3 mg/dL (2.5-4.5); Potassium 4.9 mmol/L (3.5-5.1); Sodium 138 mmol/L (136-145); Total Bilirubin 0.2 mg/dL (0.15-1.2); Total Protein 7.4 g/dL (6.6-8.7)
[2025-02-01 13:45] LABS: Glucose Point of Care 109 mg/dL (70-110)
--- NOTE | 2025-02-01 14:09 | PC.NURSE ---
PULLED ZOFRAN 4MG IVP ONCE FOR DIALYSIS NURSE. GIVEN IN DIALYSIS PER NURSE.
[2025-02-01 14:11] VITALS: BP 177/95; PULSE 86
--- NOTE | 2025-02-01 14:31 | P.PN_ITS ---
Subjective 2 Subjective: getting HD Medications: Reviewed: Yes Vitals/I&O/Wt Last Vital Signs Temp 98.0 F 02/01/25 07:22 Pulse 86 02/01/25 14:11 Resp 16 02/01/25 07:22 BP 177/95 02/01/25 14:11 O2 Del Method Nasal Cannula 02/01/25 07:22 O2 Flow Rate 6 02/01/25 07:22 Weight last 48 hrs Weight 86.183 kg Physical Exam 2 Narrative: Vital signs noted. HEENT normocephalic atraumatic. Neck is supple no JVP. Rt IJ PC Lungs- improved air movement b/l Heart regular positive S1-S2. Abdomen is soft positive bowel sounds. Extremities decreased bilateral edema scrotal edema. Neuro awake alert oriented x 3 and no asterixis Data 02/01/25 08:09 02/01/25 08:09 A&P Assessment and plan (1) End-stage renal disease (ESRD): now HD dependent Plan 59-year-old gentleman with diabetes obesity hypertension grade 2 out of 4 diastolic dysfunction progressive renal insufficiency with renal biopsy showing recent ATN and diabetic nephrosclerosis. 1. ESRD-the patient has progressed to end-stage renal disease. HD MWF - coming to ED on MWF toED no outpt HD spot yet 2. Anemia- , YANCY with HD 3. Renal bone mineral metabolism Phosphorus is improving. PTH is 201. Vitamin D is undetectable. Started vitamin D replacement. 4. Blood pressure is elevated The patient consents to telehealth and to hemodialysis and will attempt to behave appropriately on dialysis. PDMP PDMP Reviewed: Not Reviewed Attestations 2 Medical Necessity Statement*: per albaro Coding Level of Care Code Acute Code for Chg Fwd Diagnoses End-stage renal disease (ESRD) N18.6
--- NOTE | 2025-02-04 08:27 | P.PN_ITS ---
Subjective 2 Subjective: seen and examined .feels better. less SOB. still has edema. no n/v/f/c/betancourt/d Medications: Reviewed: Yes Medication Review Details: Prescriptions: New losartan 50 mg Tablet 50 mg PO DAILY Qty: 30 0RF isosorbide mononitrate 30 mg Tablet Extended Release 24 Hr 30 mg PO DAILY 30 Days Qty: 30 0RF metoprolol tartrate 50 mg Tablet 50 mg PO BID@0900,2100 30 Days Qty: 60 0RF hydralazine 50 mg Tablet 75 mg PO TID 30 Days Qty: 135 0RF Continued pantoprazole 40 mg tablet,delayed release (DR/EC) 40 mg PO DAILY glipizide 5 mg tablet extended release 24hr 5 mg PO DAILY Qty: 30 0RF tamsulosin [Flomax] 0.4 mg capsule 0.4 mg PO DAILY Qty: 30 1RF divalproex [Depakote] 250 mg tablet,delayed release (DR/EC) 250 mg PO .7 pm Qty: 30 2RF aspirin 81 mg Tablet,Delayed Release (Dr/Ec) 81 mg PO DAILY Qty: 90 0RF atorvastatin 80 mg tablet 80 mg PO QPM albuterol sulfate 2.5 mg /3 mL (0.083 %) solution for nebulization 2.5 mg inhalation Q4H PRN (Reason: Shortness Of Breath) sodium bicarbonate 650 mg Tablet 650 mg PO TID 30 Days Qty: 90 1RF sevelamer carbonate 800 mg Tablet 800 mg PO TID 30 Days Qty: 90 1RF bumetanide 2 mg tablet 2 mg PO BIDAC Qty: 60 1RF oxycodone-acetaminophen 5-325 mg Tablet 1 tab PO Q4H PRN (Reason: Severe Pain) 7 Days Qty: 20 0RF ezetimibe 10 mg tablet 10 mg PO DAILY Vitals/I&O/Wt Last Vital Signs Temp 98.0 F 02/01/25 07:22 Pulse 86 02/01/25 14:11 Resp 16 02/01/25 07:22 BP 177/95 02/01/25 14:11 O2 Del Method Nasal Cannula 02/01/25 07:22 O2 Flow Rate 6 02/01/25 07:22 Physical Exam 2 Narrative: The patient is comfortable in bed no apparent distress. Blood pressure noted. HEENT normocephalic atraumatic. Neck is supple. Lungs are clear. Heart is regular positive S1-S2. Abdomen is soft positive bowel sounds. Extremities have 1+ edema. Neuro awake alert oriented x 3. Access right IJ permacath. Data 02/01/25 08:09 02/01/25 08:09 A&P Assessment and plan (1) End-stage renal disease (ESRD): 60-year-old man hypertension diabetes heart failure preserved EF, ESRD. The patient does not yet have an outpatient dialysis unit and therefore has to go to emergency room 3 times a week for dialysis. 1. ESRD will dialyze today for 3 and half hours and try to remove 3 L as tolerated. 2. Hypertension monitor on dialysis. 3. Will give Epogen. monitor iron studies. 4. Patient on sevelamer and phosphorus is improving. Patient is doing well with dialysis. Patient was seen and examined using audiovisual equipment with the aid of a nurse. The patient consented to telehealth and to dialysis. Plan Hemodialysis today and Epogen. After dialysis the patient from a renal perspective is cleared for discharge. PDMP PDMP Reviewed: Not Reviewed Attestations 2 Medical Necessity Statement*: ESRD needs dialysis. Time Spent in Patient Care: Greater than 35 minutes Coding Level of Care Code Acute Code for Chg Fwd Diagnoses End-stage renal disease (ESRD) N18.6
== END 2025-02-01 14:12 | disposition home or self-care (01) ==
PROVIDERS: Emergency Provider Family Medicine; PCP Family Medicine
DX: E11.22 Type 2 diabetes mellitus with diabetic chronic kidney disease (principal); I13.2 Hypertensive heart and chronic kidney disease with heart failure and with stage 5 chronic kidney disease, or end stage renal disease; I50.30 Unspecified diastolic (congestive) heart failure; N18.6 End stage renal disease; Z99.2 Dependence on renal dialysis; Z87.891 Personal history of nicotine dependence; D64.9 Anemia, unspecified; Z79.82 Long term (current) use of aspirin
CPT/HCPCS: 36415; 36416; 80053; 82962; 83735; 84100; 85025; 99283

== ENCOUNTER 2025-02-04 08:03 | Emergency (ER) | payer MEDICARE, MEDICAID, SELFPAY ==
[2024-12-26 13:42] VITALS: BMI 29.2
[2025-02-04 08:12] VITALS: BP 149/81; PULSE 94; RESP 17; TEMP 36.5; O2SAT 98; BMI 30.4
--- NOTE | 2025-02-04 08:48 | ED_ITS ---
HPI - General Adult 2 General: Chief complaint: General Medical Stated complaint: dialysis Time Seen by Provider: 02/04/25 08:06 History of Present Illness: 60-year-old male presents to the emergen cy room. He has end-stage renal disease unfortunately due to some social and logistical concerns he is not able to get established with the clinic and does not have any options for outpatient dialysis option. He presents to the emergency room today for dialysis. He does have some slight increase swelling in his legs his breathing has been normal. He is normally on 4 L/min by nasal cannula. He has congestive heart failure as well which is very fragile he controlled in conjunction with his end-stage renal disease. Associated symptoms: Deny chest pain, dyspnea or rash Related Data Home Medications ?Medication ?Instructions ?Recorded ?Confirmed pantoprazole 40 mg tablet,delayed 40 mg PO DAILY 12/0602/04/25 release ezetimibe 10 mg tablet 10 mg PO DAILY 01/03/2505/24 albuterol sulfate 2.5 mg/3 mL 2.5 mg inhalation Q4H MD N 01/06/25 02/04/25 (0.083 %) solution for nebulization Shortness Of Breat h atorvastatin 80 mg tablet 80 mg PO QPM 01/06/25 Previous Rx's ?Medication ?Instructions ?Recorded aspirin 81 mg tablet,delayed 81 mg PO DAILY #90 tabs 1 12/07/23 release divalproex 250 mg tablet,delayed 250 mg PO .7 pm #30 t abs 11/26/24 release (Depakote) glipizide 5 mg tablet, extended 5 mg PO DAILY #30 tabs 12/25/24 release 24 hr bumetanide 2 mg tablet 2 mg PO BIDAC #60 tabs 01/13 sevelamer carbonate 800 mg tablet 800 mg PO TID 30 day s #90 tabs 01/13/25 sodium bicarbonate 650 mg tablet 650 mg PO TID 30 days #90 tabs 01/13/25 tamsulosin 0.4 mg capsule (Flomax) 0.4 mg PO DAILY #30 caps 01/14/25 hydralazine 50 mg tablet 75 mg (1.5 x 50 mg) PO TID 3 0 days 01/30/25 #135 tabs isosorbide mononitrate 30 mg 30 mg PO DAILY 30 days #3 0 tabs 01/30/25 tablet,extended release 24 hr losartan 50 mg tablet 50 mg PO DAILY #30 tabs 040 12/25 metoprolol tartrate 50 mg tablet 50 mg PO BID@0900,210 0 30 days #60 01/30/25 tabs Allergies Allergy/AdvReac Type Severity Reaction Status Date / Time No Known Allergies Allergy Verified 01/15/25 04:45 Review of Systems 2 Const: Denies: fever(s) or chills Card: Reports: edema and swelling of feet/ankles; Denies: chest pain Resp: Denies: dyspnea GI: Denies: abdominal pain : Denies: dysuria, urinary frequency or urinary urgency Musc: Denies: neck pain or back pain Skin/Breast: Denies: rash PFSH ED 2 PFSH: Medical History Anemia Bipolar II disorder Essential hypertension Volume overload Type 2 diabetes mellitus Glomerulosclerosis Renal biopsy: Pathology: Nodular diabetic glomerulosclerosis class III, ATN. (HFpEF) heart failure with preserved eje ction fraction Poor compliance with medication CKD (chronic kidney disease), stage V Influenza Acute on chronic renal failure Acute hypoxemic respiratory failure Community acquired pneumonia HALIE (acute kidney injury) Non-STEMI (non-ST elevated myocardial infarction) Hyperglycemia Hammertoe of right foot Callus of heel Blurred vision CKD (chronic kidney disease) stage V requiring chronic dialysis Nicotine dependence, cigarettes, uncomplicated Bereavement Mother in February 2024 Cannabis use disorder, moderate, dependence Chronic post-traumatic stress disorder Impaired visual perception Psychiatric care 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 Social History Smoking and tobacco/nicotine status: former use of tobacco/nicotine Alcohol intake: former Adopted: No Caregiver/support person: No Lives independently: Yes Household members: none Housing: Apartment Marital status: Number of children: 1 Highest education level completed: High School Graduate service: No Current occupational status: disabled Current occupational exposures/hazards: No Pets and animals: Yes Pets & animals: cat(s) and dog(s) Leisure activites: other Leisure activities details: play music Sexually active: No Do you think of yourself as: Straight/Heterosexual Current gender identity: Male Carmita/Mormon: Restoration Special carmita needs: No Agree to transfusion: Yes Physical Exam 2 Const: GENERAL APPEARANCE: cooperative ORIENTATION/CONSCIOUSNESS: Yes awake, Yes oriented to person, Yes oriented to place and Yes oriented to time HENMT: COMMON NORMALS: normocephalic, atraumatic and hearing grossly normal bilaterally HEAD & SCALP: normocephalic and atraumatic Resp: COMMON NORMALS: normal respiratory effort, No retractions, No use of accessory muscles and clear to auscultation bilaterally AUSCULTATION: clear to auscultation bilaterally Cardio: COMMON NORMALS: regular rate, regular rhythm and No murmurs present (Cardio) RATE: regular rate RHYTHM: regular rhythm Extremity: GENERAL: Yes edema Neuro: SENSORIUM/ORIENTATION: Yes oriented to person, Yes oriented to place and Yes oriented to time Skin: COMMON NORMALS: no rashes or lesions noted GENERAL SKIN EXAM: no rashes or lesions noted Course 2 Vital Signs: Vital signs: Vital Signs Temperature 97.7 F 02/04/25 08:12 Pulse Rate 97 02/04/25 10:56 Respiratory Rate 17 02/04/25 08:12 Blood Pressure 142/78 02/04/25 10:56 Pulse Oximetry 96 02/04/25 10:56 Oxygen Delivery Me thod Nasal Cannula 02/04/25 10:56 Oxygen Flow Rate 4 02/04/25 08:12 [facility] - General Adult Medical Decision Making Consult nephrology for dialysis.. Dr. Hood is where the patient is here. Dr. Hood ordered some labs and dialyzed. Patient was discharged after dialysis was completed. Unfortunately he still not been excepted to the dialysis clinic clinic. They are continuing to try to work on this for him. Medical Records I reviewed the patient's medical records. Lab Data I reviewed the patient's lab results. 02/04/25 08:56 02/04/25 08:56 Laboratory Results WBC 7.45 10^3/uL (3.29-11.43) 02/04/25 08:56 RBC 3.70 10^6/uL (3.85-5.65) L 02/04/25 08:56 Hgb 10.60 g/dL (11.27-16.99) L 02/04/25 08:56 Hct 33.5 % (37-53) L 02/04/25 08:56 MCV 90.5 fl (82-101) 02/04/25 08:56 MCH 28.6 pg (27-33) 02/04/25 08:56 MCHC 31.6 g/dL (30-55) 02/04/25 08:56 RDW 14.2 % (12.1-15.1) 02/04/25 08:56 Plt Count 356 10^3/cmm (157-399) 02/04/25 08:56 MPV 9.7 fL (7.4-10.4) 02/04/25 08:56 Neut % (Auto) 71.8 % 02/04/25 08:56 Lymph % (Auto) 12.8 % 02/04/25 08:56 Valley % (Auto) 7.5 % 02/04/25 08:56 Eos % (Auto) 5.2 % 02/04/25 08:56 Baso % (Auto) 2.3 % 02/04/25 08:56 Neut # (Auto) 5.35 10^3/uL (1.8-7.7) 02/04/25 08:56 Lymph # (Auto) 1.0 10^3/uL (0.8-4.8) 02/04/25 08:56 Valley # (Auto) 0.6 10^3/uL (0.2-0.9) 02/04/25 08:56 Eos # (Auto) 0.4 10^3/uL (0.0-0.8) 02/04/25 08:56 Baso # (Auto) 0.2 10^3/uL (0.0-0.1) H 02/04/25 08:56 Nucleated RBC % (auto) 0 % 02/04/25 08:56 Nucleated RBCs # 0.0 /100WBC 02/04/25 08:56 Sodium 140 mmol/L (136-145) 02/04/25 08:56 Potassium 4.5 mmol/L (3.5-5.1) 02/04/25 08:56 Chloride 100 mmol/L (98-107) 02/04/25 08:56 Carbon Dioxide 25 mmol/L (22-29) 02/04/25 08:56 Anion Gap 19.5 (5-19) H 02/04/25 08:56 BUN 48 mg/dL (6-20) H 02/04/25 08:56 Creatinine 4.2 mg/dL (0.7-1.2) H 02/04/25 08:56 GFR Calculation 14.6 mL/min (90-130) L 02/04/25 08:56 Glucose 118 mg/dL (65-115) H 02/04/25 08:56 Calculated Osmolality 304 mOsm/kg (285-295) H 02/04/25 08:56 Calcium 8.8 mg/dL (8.5-10.5) 02/04/25 08:56 Phosphorus 4.5 mg/dL (2.5-4.5) 02/04/25 08:56 Magnesium 2.0 mg/dL (1.7-2.3) 02/04/25 08:56 Iron 66 ug/dL (59-158) 02/04/25 08:56 TIBC 233 mcg/dl 02/04/25 08:56 % Saturation 28.3 % (20-50) 02/04/25 08:56 Unsat Iron Binding 167 ug/dL (112-347) 02/04/25 08:56 Ferritin 485 ng/mL (30-400) H 02/04/25 08:56 Total Bilirubin 0.2 mg/dL (0.15-1.2) 02/04/25 08:56 AST 16 U/L (0-40) 02/04/25 08:56 ALT 7 U/L (0-41) 02/04/25 08:56 Alkaline Phosphatase 90 U/L (40-130) 02/04/25 08:56 Total Protein 7.6 g/dL (6.6-8.7) 02/04/25 08:56 Albumin 3.9 g/dL (3.5-5.2) 02/04/25 08:56 Globulin 3.7 g/dL (1.3-4.6) 02/04/25 08:56 No radiology studies performed this visit Discharge Plan Discharge Patient Disposition: Home Clinical Impression: End stage renal disease on dialysis, (HFpEF) heart failure with preserved ejection fraction Clinical Impression: (Ruled Out): Onychodystrophy Condition: Stable Prescriptions: No Action pantoprazole 40 mg tablet,delayed release (DR/EC) 40 mg PO DAILY glipizide 5 mg tablet extended release 24hr 5 mg PO DAILY Qty: 30 0RF tamsulosin [Flomax] 0.4 mg capsule 0.4 mg PO DAILY Qty: 30 1RF divalproex [Depakote] 250 mg tablet,delayed release (DR/EC) 250 mg PO .7 pm Qty: 30 2RF aspirin 81 mg Tablet,Delayed Release (Dr/Ec) 81 mg PO DAILY Qty: 90 0RF atorvastatin 80 mg tablet 80 mg PO QPM albuterol sulfate 2.5 mg /3 mL (0.083 %) solution for nebulization 2.5 mg inhalation Q4H PRN (Reason: Shortness Of Breath) sodium bicarbonate 650 mg Tablet 650 mg PO TID 30 Days Qty: 90 1RF sevelamer carbonate 800 mg Tablet 800 mg PO TID 30 Days Qty: 90 1RF bumetanide 2 mg tablet 2 mg PO BIDAC Qty: 60 1RF losartan 50 mg Tablet 50 mg PO DAILY Qty: 30 0RF isosorbide mononitrate 30 mg Tablet Extended Release 24 Hr 30 mg PO DAILY 30 Days Qty: 30 0RF metoprolol tartrate 50 mg Tablet 50 mg PO BID@0900,2100 30 Days Qty: 60 0RF hydralazine 50 mg Tablet 75 mg PO TID 30 Days Qty: 135 0RF ezetimibe 10 mg tablet 10 mg PO DAILY Discharge Orders: Discharge ED (Routine); Ordered 02/04/25 Ordered By: Brian Escudero Referrals: Pierce Justice MD [Primary Care Provider] - Patient Instructions: Opioid Safety, Pain Management Activity Restrictions/Additional Instructions: Thank you for choosing [facility] for your healthcare needs today. It is very important that you follow up as instructed or that you return to the Emergency Department should you have concerns or if your condition changes or worsens in any way. Follow-up with your primary care doctor as previously scheduled. Print Language: Surinamese Coding Level of Care Code ED Cert Occupational Therapy Asst for Sandro Foster
[2025-02-04 09:01] VITALS: BP 149/73; O2SAT 95
[2025-02-04 09:15] LABS: Basophils # 0.2 10^3/uL (0.0-0.1); Basophils % 2.3 %; Eosinophils # 0.4 10^3/uL (0.0-0.8); Eosinophils % 5.2 %; Hematocrit 33.5 % (37-53); Lymphocytes % 12.8 %; Mean Corpuscular HGB Conc 31.6 g/dL (30-55); Mean Corpuscular Hemoglobin 28.6 pg (27-33); Mean Corpuscular Volume 90.5 fl (82-101); Mean Platelet Volume 9.7 fL (7.4-10.4); Monocytes # 0.6 10^3/uL (0.2-0.9); Monocytes % 7.5 %; Neutrophils # 5.35 10^3/uL (1.8-7.7); Neutrophils % 71.8 %; Nucleated Red Blood Cells % 0 %; Platelet Count 356 10^3/cmm (157-399); Red Cell Distribution Width 14.2 % (12.1-15.1); White Blood Count 7.45 10^3/uL (3.29-11.43)
[2025-02-04 09:34] LABS: Alanine Aminotransferase 7 U/L (0-41); Albumin Level 3.9 g/dL (3.5-5.2); Alkaline Phosphatase 90 U/L (40-130); Anion Gap 19.5 (5-19); Aspartate Amino Transferase 16 U/L (0-40); Blood Urea Nitrogen 48 mg/dL (6-20); Calcium 8.8 mg/dL (8.5-10.5); Carbon Dioxide 25 mmol/L (22-29); Chloride 100 mmol/L (98-107); Creatinine Clr Calc Pharmacy 19.7281; Ferritin 485 ng/mL (30-400); Globulin 3.7 g/dL (1.3-4.6); Glomerular Filtration Rate 14.6 mL/min (90-130); Glucose 118 mg/dL (65-115); Iron 66 ug/dL (59-158); Osmolality Calculated 304 mOsm/kg (285-295); Percent Saturation 28.3 % (20-50); Phosphorus 4.5 mg/dL (2.5-4.5); Potassium 4.5 mmol/L (3.5-5.1); Sodium 140 mmol/L (136-145); Total Bilirubin 0.2 mg/dL (0.15-1.2); Total Iron Binding Capacity 233 mcg/dl; Total Protein 7.6 g/dL (6.6-8.7); Unsaturated Iron Binding 167 ug/dL (112-347)
[2025-02-04 10:56] VITALS: BP 142/78; PULSE 97; O2SAT 96
--- NOTE | 2025-02-04 12:40 | PC.HD ---
Unable to access dialysis pre- and post- treatment forms due to patient not being admitted. Report received from Itzel in the ED. Called for patient @ 1210, patient arrived 1220. Prior to HD: BP 153/83 HR 96 RR 16 Temp 37.2C Weight 73.0 kg Patient reports no pain. R HD catheter dressing c/d/i. Dressing changed; triple antibiotic ointment applied to catheter insertion site. New Covaderm placed. Machine chloramine check performed @ 1225 Patient educated on importance of attending all dialysis sessions. Patient voiced understanding. No issues or complaints noted otherwise.
--- NOTE | 2025-02-04 13:49 | P.PN_ITS ---
Subjective Subjective: second note- seen on dialysis. he has no n/v/f/c/betancourt/d Medications: Reviewed: Yes Medication Review Details: Prescriptions: New losartan 50 mg Tablet 50 mg PO DAILY Qty: 30 0RF isosorbide mononitrate 30 mg Tablet Extended Release 24 Hr 30 mg PO DAILY 30 Days Qty: 30 0RF metoprolol tartrate 50 mg Tablet 50 mg PO BID@0900,2100 30 Days Qty: 60 0RF hydralazine 50 mg Tablet 75 mg PO TID 30 Days Qty: 135 0RF Continued pantoprazole 40 mg tablet,delayed release (DR/EC) 40 mg PO DAILY glipizide 5 mg tablet extended release 24hr 5 mg PO DAILY Qty: 30 0RF tamsulosin [Flomax] 0.4 mg capsule 0.4 mg PO DAILY Qty: 30 1RF divalproex [Depakote] 250 mg tablet,delayed release (DR/EC) 250 mg PO .7 pm Qty: 30 2RF aspirin 81 mg Tablet,Delayed Release (Dr/Ec) 81 mg PO DAILY Qty: 90 0RF atorvastatin 80 mg tablet 80 mg PO QPM albuterol sulfate 2.5 mg /3 mL (0.083 %) solution for nebulization 2.5 mg inhalation Q4H PRN (Reason: Shortness Of Breath) sodium bicarbonate 650 mg Tablet 650 mg PO TID 30 Days Qty: 90 1RF sevelamer carbonate 800 mg Tablet 800 mg PO TID 30 Days Qty: 90 1RF bumetanide 2 mg tablet 2 mg PO BIDAC Qty: 60 1RF oxycodone-acetaminophen 5-325 mg Tablet 1 tab PO Q4H PRN (Reason: Severe Pain) 7 Days Qty: 20 0RF ezetimibe 10 mg tablet 10 mg PO DAILY Vitals/I&O/Wt Last Vital Signs Temp 97.7 F 02/04/25 08:12 Pulse 97 02/04/25 10:56 Resp 17 02/04/25 08:12 BP 142/78 02/04/25 10:56 Pulse Ox 96 02/04/25 10:56 O2 Del Method Nasal Cannula 02/04/25 10:56 O2 Flow Rate 4 02/04/25 08:12 Weight last 48 hrs Weight 85.729 kg Physical Exam Narrative: The patient is comfortable in bed no apparent distress. Blood pressure noted. HEENT normocephalic atraumatic. Neck is supple. Lungs are clear. Heart is regular positive S1-S2. Abdomen is soft positive bowel sounds. Extremities have 1+ edema. Neuro awake alert oriented x 3. Access right IJ permacath. A&P Assessment and plan (1) End-stage renal disease (ESRD): Plan 60-year-old man hypertension diabetes heart failure preserved EF, ESRD. The patient does not yet have an outpatient dialysis unit and therefore has to go to emergency room 3 times a week for dialysis. 1. ESRD - seen on dialysis at 1:50 pm- 3 and half hours and try to remove 3 L a s tolerated. 2. Hypertension monitor on dialysis. 3. Will give Epogen. monitor iron studies. 4. Patient on sevelamer and phosphorus is improving. Patient is doing well with dialysis. Patient was seen and examined using audiovisual equipment with the aid of a nurse. The patient consented to telehealth and to dialysis. PDMP PDMP Reviewed: Not Reviewed Attestations Medical Necessity Statement*: esrd- needs dialysis Time Spent in Patient Care: Greater than 35 minutes (>than 50% of time spent in counselling and/or direct pt care on unit) . Coding Level of Care Code Acute Code for Chg Fwd Diagnoses End-stage renal disease (ESRD) N18.6
--- NOTE | 2025-02-04 16:03 | PC.HD ---
Post dialysis note: Removed 3000 mL Post-trx: BP 155/89 HR 60 RR 16 Temp 36.6C Weight 125.5 Patient tolerated treatment with no issues or complaints. After treatment, ER staff provided discharge papers and patient was taken to the ED waiting room to be picked up. Flowsheet, orders, and consent printed and given to ED charge to place in patient's chart.
== END 2025-02-04 15:55 | disposition home or self-care (01) ==
PROVIDERS: Internal Medicine Nephrology; Emergency Provider Family Medicine; PCP Family Medicine
DX: E11.22 Type 2 diabetes mellitus with diabetic chronic kidney disease (principal); I13.2 Hypertensive heart and chronic kidney disease with heart failure and with stage 5 chronic kidney disease, or end stage renal disease; I50.30 Unspecified diastolic (congestive) heart failure; N18.6 End stage renal disease; Z99.2 Dependence on renal dialysis; Z79.82 Long term (current) use of aspirin; Z87.891 Personal history of nicotine dependence
CPT/HCPCS: 36415; 80053; 82728; 83540; 83550; 83735; 84100; 85025; 99283

== ENCOUNTER 2025-02-06 07:31 | Emergency (ER) | payer MEDICARE, MEDICAID, SELFPAY ==
[2024-12-26 13:42] VITALS: BMI 29.2
--- NOTE | 2025-02-06 07:40 | ED_ITS ---
HPI - General Adult 2 General: Chief complaint: General Medical Stated complaint: dialysis Time Seen by Provider: 02/06/25 07:39 History of Present Illness: 60-year-old male with end-stage renal di sease on hemodialysis unfortunately does not have has been willing to accommodate him. Presents to the emergency room in need of hemodialysis. Denies any shortness of breath or chest discomfort Associated symptoms: Deny chest pain, dyspnea or rash Related Data Home Medications ?Medication ?Instructions ?Recorded ?Confirmed pantoprazole 40 mg tablet,delayed 40 mg PO DAILY 12/0602/06/25 release ezetimibe 10 mg tablet 10 mg PO DAILY 01/03/2507/25 albuterol sulfate 2.5 mg/3 mL 2.5 mg inhalation Q4H MI N 01/06/25 02/06/25 (0.083 %) solution for nebulization Shortness Of Breat h atorvastatin 80 mg tablet 80 mg PO QPM 01/06/25 Previous Rx's ?Medication ?Instructions ?Recorded aspirin 81 mg tablet,delayed 81 mg PO DAILY #90 tabs 1 12/07/23 release divalproex 250 mg tablet,delayed 250 mg PO .7 pm #30 t abs 11/26/24 release (Depakote) glipizide 5 mg tablet, extended 5 mg PO DAILY #30 tabs 12/25/24 release 24 hr bumetanide 2 mg tablet 2 mg PO BIDAC #60 tabs 01/13 sevelamer carbonate 800 mg tablet 800 mg PO TID 30 day s #90 tabs 01/13/25 sodium bicarbonate 650 mg tablet 650 mg PO TID 30 days #90 tabs 01/13/25 tamsulosin 0.4 mg capsule (Flomax) 0.4 mg PO DAILY #30 caps 01/14/25 hydralazine 50 mg tablet 75 mg (1.5 x 50 mg) PO TID 3 0 days 01/30/25 #135 tabs isosorbide mononitrate 30 mg 30 mg PO DAILY 30 days #3 0 tabs 01/30/25 tablet,extended release 24 hr losartan 50 mg tablet 50 mg PO DAILY #30 tabs 0412/25 metoprolol tartrate 50 mg tablet 50 mg PO BID@0900,210 0 30 days #60 01/30/25 tabs Allergies Allergy/AdvReac Type Severity Reaction Status Date / Time No Known Allergies Allergy Verified 01/15/25 04:45 Review of Systems 2 Const: Denies: fever(s) or chills Card: Denies: chest pain Resp: Denies: dyspnea GI: Denies: abdominal pain : Denies: dysuria, urinary frequency or urinary urgency Musc: Denies: neck pain or back pain Skin/Breast: Denies: rash PFSH ED 2 PFSH: Medical History Anemia Bipolar II disorder Essential hypertension Volume overload Type 2 diabetes mellitus Glomerulosclerosis Renal biopsy: Pathology: Nodular diabetic glomerulosclerosis class III, ATN. (HFpEF) heart failure with preserved eje ction fraction Poor compliance with medication CKD (chronic kidney disease), stage V Influenza Acute on chronic renal failure Acute hypoxemic respiratory failure Community acquired pneumonia HALIE (acute kidney injury) Non-STEMI (non-ST elevated myocardial infarction) Hyperglycemia Hammertoe of right foot Callus of heel Blurred vision CKD (chronic kidney disease) stage V requiring chronic dialysis Nicotine dependence, cigarettes, uncomplicated Bereavement Mother in February 2024 Cannabis use disorder, moderate, dependence Chronic post-traumatic stress disorder Impaired visual perception Psychiatric care 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 Social History Smoking and tobacco/nicotine status: former use of tobacco/nicotine Alcohol intake: former Adopted: No Caregiver/support person: No Lives independently: Yes Household members: none Housing: Apartment Marital status: Number of children: 1 Highest education level completed: High School Graduate service: No Current occupational status: disabled Current occupational exposures/hazards: No Pets and animals: Yes Pets & animals: cat(s) and dog(s) Leisure activites: other Leisure activities details: play music Sexually active: No Do you think of yourself as: Straight/Heterosexual Current gender identity: Male Carmita/Islam: Restorationism Special carmita needs: No Agree to transfusion: Yes Physical Exam 2 Const: GENERAL APPEARANCE: cooperative ORIENTATION/CONSCIOUSNESS: Yes awake, Yes oriented to person, Yes oriented to place and Yes oriented to time HENMT: COMMON NORMALS: normocephalic, atraumatic and hearing grossly normal bilaterally HEAD & SCALP: normocephalic and atraumatic Resp: COMMON NORMALS: normal respiratory effort, No retractions and No use of accessory muscles AUSCULTATION: crackles Laterality: bilateral (At the bases) Cardio: COMMON NORMALS: regular rate, regular rhythm and No murmurs present (Cardio) RATE: regular rate RHYTHM: regular rhythm GI: COMMON NORMALS: Soft to palpation and No hepatosplenomegaly present A USCULTATION: Yes normoactive bowel sounds PALPATION: Yes Soft to palpation, No Tenderness to palpation present (GI), No Guarding due to palpation present (GI) and Yes No hepatosplenomegaly present Extremity: COMMON NORMALS: normal to inspection, capillary refill normal, no clubbing, cyanosis or edema, no calf tenderness and no pedal edema Neuro: SENSORIUM/ORIENTATION: Yes oriented to person, Yes oriented to place and Yes oriented to time Skin: COMMON NORMALS: no rashes or lesions noted GENERAL SKIN EXAM: no rashes or lesions noted Course 2 Vital Signs: Vital signs: Vital Signs Temperature 98.6 F 02/06/25 13:22 Pulse Rate 88 02/06/25 13:22 Respiratory Rate 16 02/06/25 13:22 Blood Pressure 182/108 02/06/25 13:22 Pulse Oximetry 94 02/06/25 13:22 Oxygen Delivery Me thod Room Air 02/06/25 08:25 MDM - General Adult Medical Decision Making Consult nephrology for dialysis. Due to his heart failure unfortunately without regular dialysis he will decompensate. He will need to be dialyzed today. Nephrology completed his dialysis. Nephrology recommends that his next dialysis be in 3 days. Medical Records I reviewed the patient's medical records. Lab Data 02/06/25 09:51 Laboratory Results Sodium 139 mmol/L (136-145) 02/06/25 09:51 Potassium 3.7 mmol/L (3.5-5.1) 02/06/25 09:51 Chloride 100 mmol/L (98-107) 02/06/25 09:51 Carbon Dioxide 26 mmol/L (22-29) 02/06/25 09:51 Anion Gap 16.7 (5-19) 02/06/25 09:51 BUN 27 mg/dL (6-20) H 02/06/25 09:51 Creatinine 3.1 mg/dL (0.7-1.2) H 02/06/25 09:51 GFR Calculation 20.8 mL/min (90-130) L 02/06/25 09:51 Glucose 132 mg/dL (65-115) H 02/06/25 09:51 Calculated Osmolality 295 mOsm/kg (285-295) 02/06/25 09:51 Calcium 8.5 mg/dL (8.5-10.5) 02/06/25 09:51 Phosphorus 2.9 mg/dL (2.5-4.5) 02/06/25 09:51 Magnesium 2.0 mg/dL (1.7-2.3) 02/06/25 09:51 Total Bilirubin 0.2 mg/dL (0.15-1.2) 02/06/25 09:51 AST 17 U/L (0-40) 02/06/25 09:51 ALT 9 U/L (0-41) 02/06/25 09:51 Alkaline Phosphatase 84 U/L (40-130) 02/06/25 09:51 Total Protein 7.6 g/dL (6.6-8.7) 02/06/25 09:51 Albumin 3.7 g/dL (3.5-5.2) 02/06/25 09:51 Globulin 3.9 g/dL (1.3-4.6) 02/06/25 09:51 All radiology interpretation(s) finalized by discharge Discharge Plan Discharge Patient Disposition: Home Clinical Impression: (HFpEF) heart failure with preserved ejection fraction, Anemia, End-stage renal disease (ESRD) Condition: Stable Prescriptions: No Action pantoprazole 40 mg tablet,delayed release (DR/EC) 40 mg PO DAILY glipizide 5 mg tablet extended release 24hr 5 mg PO DAILY Qty: 30 0RF tamsulosin [Flomax] 0.4 mg capsule 0.4 mg PO DAILY Qty: 30 1RF divalproex [Depakote] 250 mg tablet,delayed release (DR/EC) 250 mg PO .7 pm Qty: 30 2RF aspirin 81 mg Tablet,Delayed Release (Dr/Ec) 81 mg PO DAILY Qty: 90 0RF atorvastatin 80 mg tablet 80 mg PO QPM albuterol sulfate 2.5 mg /3 mL (0.083 %) solution for nebulization 2.5 mg inhalation Q4H PRN (Reason: Shortness Of Breath) sodium bicarbonate 650 mg Tablet 650 mg PO TID 30 Days Qty: 90 1RF sevelamer carbonate 800 mg Tablet 800 mg PO TID 30 Days Qty: 90 1RF bumetanide 2 mg tablet 2 mg PO BIDAC Qty: 60 1RF losartan 50 mg Tablet 50 mg PO DAILY Qty: 30 0RF isosorbide mononitrate 30 mg Tablet Extended Release 24 Hr 30 mg PO DAILY 30 Days Qty: 30 0RF metoprolol tartrate 50 mg Tablet 50 mg PO BID@0900,2100 30 Days Qty: 60 0RF hydralazine 50 mg Tablet 75 mg PO TID 30 Days Qty: 135 0RF ezetimibe 10 mg tablet 10 mg PO DAILY Discharge Orders: Discharge ED (Routine); Ordered 02/06/25 Ordered By: Brian Escudero Referrals: Pierce Justice MD [Primary Care Provider] - Discharge Diet: Usual diet Discharge Activity: Resume usual activity Patient Instructions: Opioid Safety, Pain Management Activity Restrictions/Additional Instructions: Thank you for choosing [facility] for your healthcare needs today. It is very important that you follow up as instructed or that you return to the Emergency Department should you have concerns or if your condition changes or worsens in any way. You are seen in the emergency room for dialysis. Reviewing vegetable thinner recommendations, he stated your next needed dialysis would be on Tuesday, March 11. Print Language: Hungarian Coding Level of Care Code ED [place] [employer] for Sandro Foster
[2025-02-06 08:25] VITALS: BP 148/88; PULSE 95; RESP 18; TEMP 36.6; O2SAT 99; BMI 30.7
--- NOTE | 2025-02-06 08:26 | PM.PN ---
Subjective Subjective: feels well. no n/v/f/c/betancourt/d/leg pains. feels thirsty Medications: Reviewed: Yes Medication Review Details: Prescriptions: New losartan 50 mg Tablet 50 mg PO DAILY Qty: 30 0RF isosorbide mononitrate 30 mg Tablet Extended Release 24 Hr 30 mg PO DAILY 30 Days Qty: 30 0RF metoprolol tartrate 50 mg Tablet 50 mg PO BID@0900,2100 30 Days Qty: 60 0RF hydralazine 50 mg Tablet 75 mg PO TID 30 Days Qty: 135 0RF Continued pantoprazole 40 mg tablet,delayed release (DR/EC) 40 mg PO DAILY glipizide 5 mg tablet extended release 24hr 5 mg PO DAILY Qty: 30 0RF tamsulosin [Flomax] 0.4 mg capsule 0.4 mg PO DAILY Qty: 30 1RF divalproex [Depakote] 250 mg tablet,delayed release (DR/EC) 250 mg PO .7 pm Qty: 30 2RF aspirin 81 mg Tablet,Delayed Release (Dr/Ec) 81 mg PO DAILY Qty: 90 0RF atorvastatin 80 mg tablet 80 mg PO QPM albuterol sulfate 2.5 mg /3 mL (0.083 %) solution for nebulization 2.5 mg inhalation Q4H PRN (Reason: Shortness Of Breath) sodium bicarbonate 650 mg Tablet 650 mg PO TID 30 Days Qty: 90 1RF sevelamer carbonate 800 mg Tablet 800 mg PO TID 30 Days Qty: 90 1RF bumetanide 2 mg tablet 2 mg PO BIDAC Qty: 60 1RF oxycodone-acetaminophen 5-325 mg Tablet 1 tab PO Q4H PRN (Reason: Severe Pain) 7 Days Qty: 20 0RF ezetimibe 10 mg tablet 10 mg PO DAILY Physical Exam Narrative: The patient is comfortable in bed no apparent distress. Blood pressure noted. HEENT normocephalic atraumatic. Neck is supple. Lungs are clear. Heart is regular positive S1-S2. Abdomen is soft positive bowel sounds. Extremities have decreased edema. Neuro awake alert oriented x 3. Access right IJ permacath. A&P Assessment and plan (1) End stage renal disease on dialysis: 60-year-old man hypertension diabetes heart failure preserved EF, ESRD. The patient does not yet have an outpatient dialysis unit and therefore has to go to emergency room 3 times a week for dialysis. 1. ESRD - he is not accepted to an outpt unit. pt is doing well. i would consider incremental dialysis with twice weekly or every 3 days. -plan dialysis now 3 hours and try to remove 2 L as tolerated. then if okay w/ pt and nurse to return on Tuesday. 2. Hypertension monitor on dialysis. 3. anemia- Will hold Epogen as hgb kings to 10.6. ferritin - 485, % sat 28 $- iv iron weekly. 4. Patient on sevelamer and phosphorus is improving. Patient is doing well with dialysis. Patient was seen and examined using audiovisual equipment with the aid of a nurse. The patient consented to telehealth and to dialysis. Plan HD now, and monitor PDMP PDMP Reviewed: Not Reviewed Attestations Medical Necessity Statement*: ESRD, HD 2-3 times weekly Time Spent in Patient Care: 16 - 35 minutes Coding Level of Care Code Acute Code for Chg Fwd Diagnoses End stage renal disease on dialysis N18.6; Z99.2
--- NOTE | 2025-02-06 09:43 | PC.HD ---
Pre dialysis: BP 178/101 HR 98 RR 16 Temp 36.7C Weight 70.1 kg Patient awake and alert, on 2L home O2. Patient states he feels greatly improved these past couple days. Dressing changed. Triple antibiotic ointment applied to catheter insertion site and fresh Covaderm applied Heparin 1000 units loading dose administered via HD catheter at 0911 per shot blast equipment operator's orders. Ferric gluconate initiated via HD circuit at 0925. Unable to document this administration on patient chart. Treatment initiated without difficult. Patient resting quietly.
[2025-02-06 10:25] LABS: Alanine Aminotransferase 9 U/L (0-41); Albumin Level 3.7 g/dL (3.5-5.2); Alkaline Phosphatase 84 U/L (40-130); Anion Gap 16.7 (5-19); Aspartate Amino Transferase 17 U/L (0-40); Blood Urea Nitrogen 27 mg/dL (6-20); Calcium 8.5 mg/dL (8.5-10.5); Carbon Dioxide 26 mmol/L (22-29); Chloride 100 mmol/L (98-107); Creatinine Clr Calc Pharmacy 26.7283; Globulin 3.9 g/dL (1.3-4.6); Glomerular Filtration Rate 20.8 mL/min (90-130); Glucose 132 mg/dL (65-115); Osmolality Calculated 295 mOsm/kg (285-295); Phosphorus 2.9 mg/dL (2.5-4.5); Potassium 3.7 mmol/L (3.5-5.1); Sodium 139 mmol/L (136-145); Total Bilirubin 0.2 mg/dL (0.15-1.2); Total Protein 7.6 g/dL (6.6-8.7)
--- NOTE | 2025-02-06 10:28 | PC.HD ---
Parking Analyst is requesting that patient only come to the ED for dialysis treatments twice a week as opposed to the originally planned 3 times a week, as he feels that patient is improving significantly and may not require a third treatmet. Plans are for patient to come to the ED on Tuesday rather than the previously planned Tuesday this week. We will then discuss with form setter supervisor which days would be best for the patient to come in on a regular basis.
[2025-02-06 13:22] VITALS: BP 182/108; PULSE 88; RESP 16; TEMP 37; O2SAT 94
== END 2025-02-06 13:24 | disposition home or self-care (01) ==
PROVIDERS: Internal Medicine Nephrology; Emergency Provider Family Medicine; PCP Family Medicine
DX: I13.2 Hypertensive heart and chronic kidney disease with heart failure and with stage 5 chronic kidney disease, or end stage renal disease (principal); N18.6 End stage renal disease; I50.30 Unspecified diastolic (congestive) heart failure; D64.9 Anemia, unspecified; Z87.891 Personal history of nicotine dependence
CPT/HCPCS: 80053; 83735; 84100; 99283

== ENCOUNTER 2025-02-09 07:37 | Emergency (ER) | payer MEDICARE, MEDICAID, SELFPAY ==
[2024-12-26 13:42] VITALS: BMI 29.2
[2025-02-09 07:49] VITALS: BP 104/63; PULSE 90; RESP 17; TEMP 36.7; O2SAT 96; BMI 29.0
--- NOTE | 2025-02-09 07:54 | ED_ITS ---
HPI - General Adult 2 General: Chief complaint: General Medical Stated complaint: dialysis Time Seen by Provider: 02/09/25 07:42 History of Present Illness: 60-year-old male with end-stage renal di sease on hemodialysis that currently does not have a clinic that is willing to accommodate his dialysis. He presents to the emergency room needing dialysis again. Currently with no shortness of breath. No chest pain. No fevers. Related Data Home Medications ?Medication ?Instructions ?Recorded ?Confirmed pantoprazole 40 mg tablet,delayed 40 mg PO DAILY 12/0602/09/25 release ezetimibe 10 mg tablet 10 mg PO DAILY 01/03/2501/29 albuterol sulfate 2.5 mg/3 mL 2.5 mg inhalation Q4H IA N 01/06/25 02/09/25 (0.083 %) solution for nebulization Shortness Of Breat h atorvastatin 80 mg tablet 80 mg PO QPM 01/06/25 Previous Rx's ?Medication ?Instructions ?Recorded aspirin 81 mg tablet,delayed 81 mg PO DAILY #90 tabs 1 12/07/23 release divalproex 250 mg tablet,delayed 250 mg PO .7 pm #30 t abs 11/26/24 release (Depakote) glipizide 5 mg tablet, extended 5 mg PO DAILY #30 tabs 12/25/24 release 24 hr bumetanide 2 mg tablet 2 mg PO BIDAC #60 tabs 01/13 sevelamer carbonate 800 mg tablet 800 mg PO TID 30 day s #90 tabs 01/13/25 sodium bicarbonate 650 mg tablet 650 mg PO TID 30 days #90 tabs 01/13/25 tamsulosin 0.4 mg capsule (Flomax) 0.4 mg PO DAILY #30 caps 01/14/25 hydralazine 50 mg tablet 75 mg (1.5 x 50 mg) PO TID 3 0 days 01/30/25 #135 tabs isosorbide mononitrate 30 mg 30 mg PO DAILY 30 days #3 0 tabs 01/30/25 tablet,extended release 24 hr losartan 50 mg tablet 50 mg PO DAILY #30 tabs 04/12/25 metoprolol tartrate 50 mg tablet 50 mg PO BID@0900,210 0 30 days #60 01/30/25 tabs Allergies Allergy/AdvReac Type Severity Reaction Status Date / Time No Known Allergies Allergy Verified 01/15/25 04:45 Review of Systems 2 Narrative: Constitutional symptoms: Negative except as documented in HPI. Skin symptoms: Negative except as documented in HPI. Eye symptoms: Negative except as documented in HPI. ENMT symptoms: Negative except as documented in HPI. Respiratory symptoms: Negative except as documented in HPI. Cardiovascular symptoms: Negative except as documented in HPI. Gastrointestinal symptoms: Negative except as documented in HPI. Genitourinary symptoms: Negative except as documented in HPI. Musculoskeletal symptoms: Negative except as documented in HPI. Neurologic symptoms: Negative except as documented in HPI. Psychiatric symptoms: Negative except as documented in HPI. Endocrine symptoms: Negative except as documented in HPI. PFSH ED 2 PFSH: Medical History Anemia Bipolar II disorder Essential hypertension Volume overload Type 2 diabetes mellitus Glomerulosclerosis Renal biopsy: Pathology: Nodular diabetic glomerulosclerosis class III, ATN. (HFpEF) heart failure with preserved eje ction fraction Poor compliance with medication CKD (chronic kidney disease), stage V Influenza Acute on chronic renal failure Acute hypoxemic respiratory failure Community acquired pneumonia HALIE (acute kidney injury) Non-STEMI (non-ST elevated myocardial infarction) Hyperglycemia Hammertoe of right foot Callus of heel Blurred vision CKD (chronic kidney disease) stage V requiring chronic dialysis Nicotine dependence, cigarettes, uncomplicated Bereavement Mother in February 2024 Cannabis use disorder, moderate, dependence Chronic post-traumatic stress disorder Impaired visual perception Psychiatric care 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 Social History Smoking and tobacco/nicotine status: former use of tobacco/nicotine Alcohol intake: former Adopted: No Caregiver/support person: No Lives independently: Yes Household members: none Housing: Apartment Marital status: Number of children: 1 Highest education level completed: High School Graduate service: No Current occupational status: disabled Current occupational exposures/hazards: No Pets and animals: Yes Pets & animals: cat(s) and dog(s) Leisure activites: other Leisure activities details: play music Sexually active: No Do you think of yourself as: Straight/Heterosexual Current gender identity: Male Carmita/Worship: Sabianism Special carmita needs: No Agree to transfusion: Yes Physical Exam 2 Narrative: EXAM NARRATIVE: General: Alert, no acute distress. Skin: Warm, dry. Head: Normocephalic, atraumatic. Neck: Supple, trachea midline. Eye: Extraocular movements are intact. Ears, nose, mouth and throat: mucosa moist. Cardiovascular: Regular, Normal peripheral perfusion. Respiratory: Lungs are clear to auscultation, respirations are non-labored, breath sounds are equal, Symmetrical chest wall expansion. Musculoskeletal: Normal ROM, no deformity. Neurological: Alert and oriented, No focal neurological deficit observed. Psychiatric: Cooperative, appropriate mood & affect. Course 2 Vital Signs: Vital signs: Vital Signs Temperature 98.2 F 02/09/25 08:59 Pulse Rate 95 02/09/25 08:59 Respiratory Rate 16 02/09/25 08:59 Blood Pressure 125/77 02/09/25 08:59 Pulse Oximetry 96 02/09/25 07:49 Oxygen Delivery Me thod Room Air 02/09/25 07:49 MDM - General Adult Medical Decision Making Assessment and plan: End-stage renal disease on dialysis ?Patient received hemodialysis and will be discharged home. - Discussed plan with patient. Answered any questions. - Evaluation and treatment of this problem were appropriate in the emergency setting. Lab Data 02/09/25 09:17 02/09/25 09:17 Laboratory Results WBC 6.32 10^3/uL (3.29-11.43) 02/09/25 09:17 RBC 3.32 10^6/uL (3.85-5.65) L 02/09/25 09:17 Hgb 9.50 g/dL (11.27-16.99) L 02/09/25 09:17 Hct 30.6 % (37-53) L 02/09/25 09:17 MCV 92.2 fl (82-101) 02/09/25 09:17 MCH 28.6 pg (27-33) 02/09/25 09:17 MCHC 31.0 g/dL (30-55) 02/09/25 09:17 RDW 14.4 % (12.1-15.1) 02/09/25 09:17 Plt Count 294 10^3/cmm (157-399) 02/09/25 09:17 MPV 9.4 fL (7.4-10.4) 02/09/25 09:17 Neut % (Auto) 56.9 % 02/09/25 09:17 Lymph % (Auto) 25.3 % 02/09/25 09:17 [place] % (Auto) 8.2 % 02/09/25 09:17 Eos % (Auto) 7.0 % 02/09/25 09:17 Baso % (Auto) 2.4 % 02/09/25 09:17 Neut # (Auto) 3.60 10^3/uL (1.8-7.7) 02/09/25 09:17 Lymph # (Auto) 1.6 10^3/uL (0.8-4.8) 02/09/25 09:17 [place] # (Auto) 0.5 10^3/uL (0.2-0.9) 02/09/25 09:17 Eos # (Auto) 0.4 10^3/uL (0.0-0.8) 02/09/25 09:17 Baso # (Auto) 0.2 10^3/uL (0.0-0.1) H 02/09/25 09:17 Nucleated RBC % (auto) 0 % 02/09/25 09:17 Nucleated RBCs # 0.0 /100WBC 02/09/25 09:17 Sodium 136 mmol/L (136-145) 02/09/25 09:17 Potassium 3.6 mmol/L (3.5-5.1) 02/09/25 09:17 Chloride 97 mmol/L (98-107) L 02/09/25 09:17 Carbon Dioxide 26 mmol/L (22-29) 02/09/25 09:17 Anion Gap 16.6 (5-19) 02/09/25 09:17 BUN 50 mg/dL (6-20) H 02/09/25 09:17 Creatinine 4.4 mg/dL (0.7-1.2) H 02/09/25 09:17 GFR Calculation 13.9 mL/min (90-130) L 02/09/25 09:17 Glucose 174 mg/dL (65-115) H 02/09/25 09:17 Calculated Osmolality 300 mOsm/kg (285-295) H 02/09/25 09:17 Calcium 8.1 mg/dL (8.5-10.5) L 02/09/25 09:17 Total Bilirubin 0.2 mg/dL (0.15-1.2) 02/09/25 09:17 AST 14 U/L (0-40) 02/09/25 09:17 ALT 8 U/L (0-41) 02/09/25 09:17 Alkaline Phosphatase 74 U/L (40-130) 02/09/25 09:17 Total Protein 7.4 g/dL (6.6-8.7) 02/09/25 09:17 Albumin 3.7 g/dL (3.5-5.2) 02/09/25 09:17 Globulin 3.7 g/dL (1.3-4.6) 02/09/25 09:17 No radiology studies performed this visit Discharge Plan Discharge Patient Disposition: Home Clinical Impression: End stage renal disease on dialysis Condition: Stable Prescriptions: No Action pantoprazole 40 mg tablet,delayed release (DR/EC) 40 mg PO DAILY glipizide 5 mg tablet extended release 24hr 5 mg PO DAILY Qty: 30 0RF tamsulosin [Flomax] 0.4 mg capsule 0.4 mg PO DAILY Qty: 30 1RF divalproex [Depakote] 250 mg tablet,delayed release (DR/EC) 250 mg PO .7 pm Qty: 30 2RF aspirin 81 mg Tablet,Delayed Release (Dr/Ec) 81 mg PO DAILY Qty: 90 0RF atorvastatin 80 mg tablet 80 mg PO QPM albuterol sulfate 2.5 mg /3 mL (0.083 %) solution for nebulization 2.5 mg inhalation Q4H PRN (Reason: Shortness Of Breath) sodium bicarbonate 650 mg Tablet 650 mg PO TID 30 Days Qty: 90 1RF sevelamer carbonate 800 mg Tablet 800 mg PO TID 30 Days Qty: 90 1RF bumetanide 2 mg tablet 2 mg PO BIDAC Qty: 60 1RF losartan 50 mg Tablet 50 mg PO DAILY Qty: 30 0RF isosorbide mononitrate 30 mg Tablet Extended Release 24 Hr 30 mg PO DAILY 30 Days Qty: 30 0RF metoprolol tartrate 50 mg Tablet 50 mg PO BID@0900,2100 30 Days Qty: 60 0RF hydralazine 50 mg Tablet 75 mg PO TID 30 Days Qty: 135 0RF ezetimibe 10 mg tablet 10 mg PO DAILY Discharge Orders: Discharge ED (Routine); Ordered 02/09/25 Ordered By: Kay Malin Referrals: Pierce Justice MD [Primary Care Provider] - Discharge Diet: Usual diet Discharge Activity: Increase activity as tolerated Patient Instructions: Opioid Safety, Pain Management Activity Restrictions/Additional Instructions: Continue dialysis as instructed. Thank you for choosing [facility] for your healthcare needs today. Please realize this is an emergency room and that we are providing you with a medical screening exam and this may not be complete and all inclusive of all the testing and or work up that you may need to determine your ailment or severity of your illness. You have been screened and evaluated and felt safe for discharge. Health conditions do change or evolve sometimes and as such it is important that you follow up with your Primary Doctor to be re checked, 3-5 days is a general good time frame for follow up. You are always welcome to return to the ED for re assessment if your symptoms are worsening or you have new concerns Print Language: [place] Coding Level of Care Code ED Manufacturing Supervisor 2Nd Shift for Sandro Foster
--- NOTE | 2025-02-09 08:36 | PM.PN ---
Subjective Subjective: no new c/o presented for HD Medications: Reviewed: Yes Vitals/I&O/Wt Last Vital Signs Temp 98.1 F 02/09/25 07:49 Pulse 90 02/09/25 07:49 Resp 17 02/09/25 07:49 BP 104/63 02/09/25 07:49 Pulse Ox 96 02/09/25 07:49 O2 Del Method Room Air 02/09/25 07:49 Weight last 48 hrs Weight 81.647 kg Physical Exam Narrative: The patient is comfortable in bed no apparent distress. Blood pressure noted. HEENT normocephalic atraumatic. Neck is supple. Lungs are clear. Heart is regular positive S1-S2. Abdomen is soft positive bowel sounds. Extremities have decreased edema. Neuro awake alert oriented x 3. Access right IJ permacath. A&P Assessment and plan (1) End stage renal disease on dialysis: 60-year-old man hypertension diabetes heart failure preserved EF, ESRD. The patient does not yet have an outpatient dialysis unit and therefore has to go to emergency room as needed for dialysis. 1. ESRD - he is not accepted to an outpt unit. pt is doing well. plan for HD 2 times/week 2. Hypertension - monitor on dialysis. 3. anemia- Will hold Epogen as hgb kings to 10.6. ferritin - 485, % sat 28 $- iv iron weekly. 4. Patient on sevelamer and phosphorus is improving. Patient is doing well with dialysis. Patient was seen and examined using audiovisual equipment with the aid of a nurse. The patient consented to telehealth and to dialysis. Plan HD now, and monitor PDMP PDMP Reviewed: Not Reviewed Attestations Medical Necessity Statement*: per albaro Coding Level of Care Code Acute Code for Chg Fwd Diagnoses End stage renal disease on dialysis N18.6; Z99.2
[2025-02-09 08:59] VITALS: BP 125/77; PULSE 95; RESP 16; TEMP 36.8
[2025-02-09] MEDS: pantoprazole DR 40 mg Tablet PO (09:03)
[2025-02-09] MEDS: alum-mag-hydroxide-sime 30 mL UDC PO (09:16)
[2025-02-09 09:26] LABS: Basophils # 0.2 10^3/uL (0.0-0.1); Basophils % 2.4 %; Eosinophils # 0.4 10^3/uL (0.0-0.8); Hematocrit 30.6 % (37-53); Lymphocytes # 1.6 10^3/uL (0.8-4.8); Lymphocytes % 25.3 %; Mean Corpuscular Hemoglobin 28.6 pg (27-33); Mean Corpuscular Volume 92.2 fl (82-101); Mean Platelet Volume 9.4 fL (7.4-10.4); Monocytes # 0.5 10^3/uL (0.2-0.9); Monocytes % 8.2 %; Neutrophils % 56.9 %; Nucleated Red Blood Cells % 0 %; Platelet Count 294 10^3/cmm (157-399); Red Blood Count 3.32 10^6/uL (3.85-5.65); Red Cell Distribution Width 14.4 % (12.1-15.1); White Blood Count 6.32 10^3/uL (3.29-11.43)
[2025-02-09 09:42] LABS: Alanine Aminotransferase 8 U/L (0-41); Albumin Level 3.7 g/dL (3.5-5.2); Alkaline Phosphatase 74 U/L (40-130); Anion Gap 16.6 (5-19); Aspartate Amino Transferase 14 U/L (0-40); Blood Urea Nitrogen 50 mg/dL (6-20); Calcium 8.1 mg/dL (8.5-10.5); Carbon Dioxide 26 mmol/L (22-29); Chloride 97 mmol/L (98-107); Creatinine Clr Calc Pharmacy 18.3617; Globulin 3.7 g/dL (1.3-4.6); Glomerular Filtration Rate 13.9 mL/min (90-130); Glucose 174 mg/dL (65-115); Osmolality Calculated 300 mOsm/kg (285-295); Potassium 3.6 mmol/L (3.5-5.1); Sodium 136 mmol/L (136-145); Total Bilirubin 0.2 mg/dL (0.15-1.2); Total Protein 7.4 g/dL (6.6-8.7)
[2025-02-09 12:01] VITALS: BP 139/80; PULSE 83; RESP 16; TEMP 36.8
== END 2025-02-09 12:17 | disposition home or self-care (01) ==
PROVIDERS: Hospitalist; Emergency Provider Emergency Medicine; PCP Family Medicine
DX: E11.22 Type 2 diabetes mellitus with diabetic chronic kidney disease (principal); I13.2 Hypertensive heart and chronic kidney disease with heart failure and with stage 5 chronic kidney disease, or end stage renal disease; I50.30 Unspecified diastolic (congestive) heart failure; N18.6 End stage renal disease; Z99.2 Dependence on renal dialysis; Z87.891 Personal history of nicotine dependence
CPT/HCPCS: 80053; 85025; 99283; J9999

== ENCOUNTER 2025-02-12 07:27 | Emergency (ER) | payer MEDICARE, MEDICAID, SELFPAY ==
[2024-12-26 13:42] VITALS: BMI 29.2
[2025-02-12 07:49] VITALS: BP 158/99; PULSE 72; RESP 16; TEMP 36.7; O2SAT 97; BMI 24.2
--- NOTE | 2025-02-12 08:02 | W.ED.GENADLT ---
HPI - General Adult General: Chief complaint: General Medical Stated complaint: dialysis Time Seen by Provider: 02/12/25 07:34 History of Present Illness: 60-year-old male presents to the emergency room. He is end-stage renal disease on dialysis with congestive heart failure he does not have an established dialysis clinic. His last dialysis was 3 days ago. Associated symptoms: Deny chest pain, dyspnea or rash Related Data Home Medications ?Medication ?Instructions ?Recorded ?Confirmed pantoprazole 40 mg tablet,delayed 40 mg PO DAILY 12/06/24 02/09/25 release ezetimibe 10 mg tablet 10 mg PO DAILY 01/03/25 02/09/25 albuterol sulfate 2.5 mg/3 mL 2.5 mg inhalation Q4H PRN 01/06/25 02/09/25 (0.083 %) solution for nebulization Shortness Of Breath atorvastatin 80 mg tablet 80 mg PO QPM 01/06/25 02/09/25 Previous Rx's ?Medication ?Instructions ?Recorded aspirin 81 mg tablet,delayed 81 mg PO DAILY #90 tabs 10/06/24 release divalproex 250 mg tablet,delayed 250 mg PO .7 pm #30 tabs 11/26/24 release (Depakote) bumetanide 2 mg tablet 2 mg PO BIDAC #60 tabs 01/13/25 sevelamer carbonate 800 mg tablet 800 mg PO TID 30 days #90 tabs 01/13/25 sodium bicarbonate 650 mg tablet 650 mg PO TID 30 days #90 tabs 01/13/25 tamsulosin 0.4 mg capsule (Flomax) 0.4 mg PO DAILY #30 caps 01/14/25 hydralazine 50 mg tablet 75 mg (1.5 x 50 mg) PO TID 30 days 01/30/25 #135 tabs isosorbide mononitrate 30 mg 30 mg PO DAILY 30 days #30 tabs 01/30/25 tablet,extended release 24 hr losartan 50 mg tablet 50 mg PO DAILY #30 tabs 01/30/25 metoprolol tartrate 50 mg tablet 50 mg PO BID@0900,2100 30 days #60 01/30/25 tabs glipizide 5 mg tablet, extended 5 mg PO DAILY #30 tabs 02/11/25 release 24 hr Allergies Allergy/AdvReac Type Severity Reaction Status Date / Time No Known Allergies Allergy Verified 01/15/25 04:45 Review of Systems Const: Denies: fever(s) or chills Card: Denies: chest pain Resp: Denies: dyspnea GI: Denies: abdominal pain : Denies: dysuria, urinary frequency or urinary urgency Musc: Denies: neck pain or back pain Skin/Breast: Denies: rash PFSH ED PFSH: Medical History Anemia Bipolar II disorder Essential hypertension Volume overload Type 2 diabetes mellitus Glomerulosclerosis Renal biopsy: Pathology: Nodular diabetic glomerulosclerosis class III, ATN. (HFpEF) heart failure with preserved ejection fraction Poor compliance with medication CKD (chronic kidney disease), stage V Influenza Acute on chronic renal failure Acute hypoxemic respiratory failure Community acquired pneumonia HALIE (acute kidney injury) Non-STEMI (non-ST elevated myocardial infarction) Hyperglycemia Hammertoe of right foot Callus of heel Blurred vision CKD (chronic kidney disease) stage V requiring chronic dialysis Nicotine dependence, cigarettes, uncomplicated Bereavement Mother in February 2024 Cannabis use disorder, moderate, dependence Chronic post-traumatic stress disorder Impaired visual perception Psychiatric care 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 Social History Smoking and tobacco/nicotine status: former use of tobacco/nicotine Alcohol intake: former Adopted: No Caregiver/support person: No Lives independently: Yes Household members: none Housing: Apartment Marital status: Number of children: 1 Highest education level completed: High School Graduate service: No Current occupational status: disabled Current occupational exposures/hazards: No Pets and animals: Yes Pets & animals: cat(s) and dog(s) Leisure activites: other Leisure activities details: play music Sexually active: No Do you think of yourself as: Straight/Heterosexual Current gender identity: Male Carmita/Jewish: Religious Special carmita needs: No Agree to transfusion: Yes Physical Exam Const: COMMON NORMALS: no acute distress GENERAL APPEARANCE: cooperative and comfortable ORIENTATION/CONSCIOUSNESS: Yes awake, Yes oriented to person, Yes oriented to place and Yes oriented to time HENMT: COMMON NORMALS: normocephalic, atraumatic and hearing grossly normal bilaterally HEAD & SCALP: normocephalic and atraumatic Resp: COMMON NORMALS: normal respiratory effort, No retractions and No use of accessory muscles AUSCULTATION: crackles Cardio: COMMON NORMALS: regular rate, regular rhythm and No murmurs present (Cardio) RATE: regular rate RHYTHM: regular rhythm GI: COMMON NORMALS: Soft to palpation and No hepatosplenomegaly present AUSCULTATION: Yes normoactive bowel sounds PALPATION: Yes Soft to palpation, No Tenderness to palpation present (GI), No Guarding due to palpation present (GI) and Yes No hepatosplenomegaly present Extremity: OTHER: 2+ edema lower extremities Neuro: SENSORIUM/ORIENTATION: Yes oriented to person, Yes oriented to place and Yes oriented to time Skin: COMMON NORMALS: no rashes or lesions noted GENERAL SKIN EXAM: no rashes or lesions noted Course Vital Signs: Vital signs: Vital Signs Temperature 98.4 F 02/12/25 13:35 Pulse Rate 74 02/12/25 13:35 Respiratory Rate 18 02/12/25 13:35 Blood Pressure 173/97 02/12/25 13:35 Pulse Oximetry 94 02/12/25 13:20 Oxygen Delivery Me thod Room Air 02/12/25 07:49 MDM - General Adult Medical Decision Making Patient dialyzed tolerated well discharged home follow-up with primary care No radiology studies performed this visit Discharge Plan Discharge Patient Disposition: Home Clinical Impression: End-stage renal disease (ESRD), (HFpEF) heart failure with preserved ejection fraction Condition: Stable Prescriptions: No Action pantoprazole 40 mg tablet,delayed release (DR/EC) 40 mg PO DAILY tamsulosin [Flomax] 0.4 mg capsule 0.4 mg PO DAILY Qty: 30 1RF divalproex [Depakote] 250 mg tablet,delayed release (DR/EC) 250 mg PO .7 pm Qty: 30 2RF glipizide 5 mg tablet extended release 24hr 5 mg PO DAILY Qty: 30 0RF aspirin 81 mg Tablet,Delayed Release (Dr/Ec) 81 mg PO DAILY Qty: 90 0RF atorvastatin 80 mg tablet 80 mg PO QPM albuterol sulfate 2.5 mg /3 mL (0.083 %) solution for nebulization 2.5 mg inhalation Q4H PRN (Reason: Shortness Of Breath) sodium bicarbonate 650 mg Tablet 650 mg PO TID 30 Days Qty: 90 1RF sevelamer carbonate 800 mg Tablet 800 mg PO TID 30 Days Qty: 90 1RF bumetanide 2 mg tablet 2 mg PO BIDAC Qty: 60 1RF losartan 50 mg Tablet 50 mg PO DAILY Qty: 30 0RF isosorbide mononitrate 30 mg Tablet Extended Release 24 Hr 30 mg PO DAILY 30 Days Qty: 30 0RF metoprolol tartrate 50 mg Tablet 50 mg PO BID@0900,2100 30 Days Qty: 60 0RF hydralazine 50 mg Tablet 75 mg PO TID 30 Days Qty: 135 0RF ezetimibe 10 mg tablet 10 mg PO DAILY Discharge Orders: Discharge ED (Routine); Ordered 02/12/25 Ordered By: Brian Escudero Referrals: Pierce Justice MD [Primary Care Provider] - Discharge Diet: Usual diet Discharge Activity: Increase activity as tolerated Patient Instructions: Opioid Safety, Pain Management Activity Restrictions/Additional Instructions: Thank you for choosing [facility] for your healthcare needs today. It is very important that you follow up as instructed or that you return to the Emergency Department should you have concerns or if your condition changes or worsens in any way. You are seen in the emergency room for dialysis. Completed dialysis run. Follow-up with your primary care doctor. Print Language: Micronesian Coding Level of Care Code ED Catalytic Converter Operator for Sandro Foster
--- NOTE | 2025-02-12 10:07 | P.PN_ITS ---
Subjective Subjective: getting HD Medications: Reviewed: Yes Vitals/I&O/Wt Last Vital Signs Temp 98.1 F 02/12/25 07:49 Pulse 72 02/12/25 07:49 Resp 16 02/12/25 07:49 BP 158/99 02/12/25 07:49 Pulse Ox 97 02/12/25 07:49 O2 Del Method Room Air 02/12/25 07:49 Weight last 48 hrs Weight 68.039 kg Physical Exam Narrative: The patient is comfortable in bed no apparent distress. Blood pressure noted. HEENT normocephalic atraumatic. Neck is supple. Lungs are clear. Heart is regular positive S1-S2. Abdomen is soft positive bowel sounds. Extremities have decreased edema. Neuro awake alert oriented x 3. Access right IJ permacath. A&P Assessment and plan (1) End stage renal disease on dialysis: 60-year-old man hypertension diabetes heart failure preserved EF, ESRD. The patient does not yet have an outpatient dialysis unit and therefore has to go to emergency room as needed for dialysis. 1. ESRD - he is not accepted to an outpt unit. pt is doing well. plan for HD 2 times/week 2. Hypertension - monitor on dialysis. 3. anemia- Will hold Epogen as hgb kings to 10.6. ferritin - 485, % sat 28 - s/p IV iron 4. Patient on sevelamer and phosphorus is improving. Patient is doing well with dialysis. Patient was seen and examined using audiovisual equipment with the aid of a nurse. The patient consented to telehealth and to dialysis. Plan HD now, and monitor PDMP PDMP Reviewed: Not Reviewed Attestations Medical Necessity Statement*: per medicine Coding Level of Care Code Acute Code for Chg Fwd Diagnoses End stage renal disease on dialysis N18.6; Z99.2
[2025-02-12] MEDS: heparin, porcine 1,000 unit/mL INJ 10 mL 1000 UNIT IV (13:03)
[2025-02-12 13:20] VITALS: BP 138/75; PULSE 65; RESP 18; TEMP 36.9; O2SAT 94
[2025-02-12 13:35] VITALS: BP 127/77; BP 173/97; PULSE 65; PULSE 74; RESP 18; TEMP 36.9
--- NOTE | 2025-02-12 13:44 | PC.HD ---
Fluid removal goal not met d/t decreased BP near treatment end. Post treatment pt c/p nausea and headache, BP 141/79. Shai crackers and applesauce given. Headache and nausea subsided after snack. Standing BP 138/75. Pt discharged to [facility] via wheelchair.
== END 2025-02-12 13:27 | disposition home or self-care (01) ==
PROVIDERS: Emergency Provider Family Medicine; PCP Family Medicine
DX: E11.22 Type 2 diabetes mellitus with diabetic chronic kidney disease (principal); I13.2 Hypertensive heart and chronic kidney disease with heart failure and with stage 5 chronic kidney disease, or end stage renal disease; I50.30 Unspecified diastolic (congestive) heart failure; N18.6 End stage renal disease
CPT/HCPCS: 96374; 99284; J1644

== ENCOUNTER 2025-02-15 07:30 | Emergency (ER) | payer MEDICARE, MEDICAID, SELFPAY ==
[2024-12-26 13:42] VITALS: BMI 29.2
--- NOTE | 2025-02-15 07:31 | ED_ITS ---
HPI - General Adult 2 General: Chief complaint: General Medical Stated complaint: Dialysis Time Seen by Provider: 02/15/25 07:31 History of Present Illness: 60-year-old male with end-stage renal di cherelle presents emergency room for dialysis. He is not been able to make arrangements for outpatient dialysis. He has had problems with congestive heart failure in the past. Associated symptoms: Deny chest pain or dyspnea Related Data Home Medications ?Medication ?Instructions ?Recorded ?Confirmed pantoprazole 40 mg tablet,delayed 40 mg PO DAILY 12/0602/15/25 release ezetimibe 10 mg tablet 10 mg PO DAILY 01/03/2501/29 albuterol sulfate 2.5 mg/3 mL 2.5 mg inhalation Q4H IL N 01/06/25 02/15/25 (0.083 %) solution for nebulization Shortness Of Breat h atorvastatin 80 mg tablet 80 mg PO QPM 01/06/25 Previous Rx's ?Medication ?Instructions ?Recorded aspirin 81 mg tablet,delayed 81 mg PO DAILY #90 tabs 1 12/07/23 release divalproex 250 mg tablet,delayed 250 mg PO .7 pm #30 t abs 11/26/24 release (Depakote) bumetanide 2 mg tablet 2 mg PO BIDAC #60 tabs 01/13 sevelamer carbonate 800 mg tablet 800 mg PO TID 30 day s #90 tabs 01/13/25 sodium bicarbonate 650 mg tablet 650 mg PO TID 30 days #90 tabs 01/13/25 tamsulosin 0.4 mg capsule (Flomax) 0.4 mg PO DAILY #30 caps 01/14/25 hydralazine 50 mg tablet 75 mg (1.5 x 50 mg) PO TID 3 0 days 01/30/25 #135 tabs isosorbide mononitrate 30 mg 30 mg PO DAILY 30 days #3 0 tabs 01/30/25 tablet,extended release 24 hr losartan 50 mg tablet 50 mg PO DAILY #30 tabs 0412/25 metoprolol tartrate 50 mg tablet 50 mg PO BID@0900,210 0 30 days #60 01/30/25 tabs glipizide 5 mg tablet, extended 5 mg PO DAILY #30 tabs 02/11/25 release 24 hr Allergies Allergy/AdvReac Type Severity Reaction Status Date / Time No Known Allergies Allergy Verified 01/15/25 04:45 Review of Systems 2 Const: Denies: fever(s) or chills Card: Denies: chest pain Resp: Denies: dyspnea GI: Denies: abdominal pain PFSH ED 2 PFSH: Medical History Anemia Bipolar II disorder Essential hypertension Volume overload Type 2 diabetes mellitus Glomerulosclerosis Renal biopsy: Pathology: Nodular diabetic glomerulosclerosis class III, ATN. (HFpEF) heart failure with preserved eje ction fraction Poor compliance with medication CKD (chronic kidney disease), stage V Influenza Acute on chronic renal failure Acute hypoxemic respiratory failure Community acquired pneumonia HALIE (acute kidney injury) Non-STEMI (non-ST elevated myocardial infarction) Hyperglycemia Hammertoe of right foot Callus of heel Blurred vision CKD (chronic kidney disease) stage V requiring chronic dialysis Nicotine dependence, cigarettes, uncomplicated Bereavement Mother in February 2024 Cannabis use disorder, moderate, dependence Chronic post-traumatic stress disorder Impaired visual perception Psychiatric care 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 Social History Smoking and tobacco/nicotine status: former use of tobacco/nicotine Alcohol intake: former Adopted: No Caregiver/support person: No Lives independently: Yes Household members: none Housing: Apartment Marital status: Number of children: 1 Highest education level completed: High School Graduate service: No Current occupational status: disabled Current occupational exposures/hazards: No Pets and animals: Yes Pets & animals: cat(s) and dog(s) Leisure activites: other Leisure activities details: play music Sexually active: No Do you think of yourself as: Straight/Heterosexual Current gender identity: Male Carmita/Faith: Sabianism Special carmita needs: No Agree to transfusion: Yes Physical Exam 2 Const: COMMON NORMALS: no acute distress GENERAL APPEARANCE: cooperative and comfortable ORIENTATION/CONSCIOUSNESS: Yes awake, Yes oriented to person, Yes oriented to place and Yes oriented to time HENMT: COMMON NORMALS: normocephalic, atraumatic and hearing grossly normal bilaterally HEAD & SCALP: normocephalic and atraumatic Resp: COMMON NORMALS: normal respiratory effort, No retractions, No use of accessory muscles and clear to auscultation bilaterally AUSCULTATION: clear to auscultation bilaterally Cardio: COMMON NORMALS: regular rate, regular rhythm and No murmurs present (Cardio) RATE: regular rate RHYTHM: regular rhythm GI: COMMON NORMALS: Soft to palpation and No hepatosplenomegaly present A USCULTATION: Yes normoactive bowel sounds PALPATION: Yes Soft to palpation, No Tenderness to palpation present (GI), No Guarding due to palpation present (GI) and Yes No hepatosplenomegaly present Extremity: COMMON NORMALS: normal to inspection, capillary refill normal, no clubbing, cyanosis or edema, no calf tenderness and no pedal edema Neuro: SENSORIUM/ORIENTATION: Yes oriented to person, Yes oriented to place and Yes oriented to time Skin: COMMON NORMALS: no rashes or lesions noted GENERAL SKIN EXAM: no rashes or lesions noted Course 2 Vital Signs: Vital signs: Vital Signs Temperature 98.3 F 02/15/25 12:57 Pulse Rate 67 02/15/25 12:57 Respiratory Rate 17 02/15/25 12:57 Blood Pressure 180/95 02/15/25 12:57 Pulse Oximetry 97 02/15/25 12:57 Oxygen Delivery Me thod Room Air 02/15/25 07:36 MDM - General Adult Medical Decision Making Patient dialyzed 2 manages congestive heart failure. Case management is looking into other potential clinics that he could establish with to get regular outpatient dialysis Lab Data 02/15/25 07:53 02/15/25 07:53 Laboratory Results WBC 8.96 10^3/uL (3.29-11.43) 02/15/25 07:53 RBC 3.51 10^6/uL (3.85-5.65) L 02/15/25 07:53 Hgb 10.20 g/dL (11.27-16.99) L 02/15/25 07:53 Hct 32.4 % (37-53) L 02/15/25 07:53 MCV 92.3 fl (82-101) 02/15/25 07:53 MCH 29.1 pg (27-33) 02/15/25 07:53 MCHC 31.5 g/dL (30-55) 02/15/25 07:53 RDW 14.7 % (12.1-15.1) 02/15/25 07:53 Plt Count 272 10^3/cmm (157-399) 02/15/25 07:53 MPV 9.9 fL (7.4-10.4) 02/15/25 07:53 Neut % (Auto) 64.9 % 02/15/25 07:53 Lymph % (Auto) 20.1 % 02/15/25 07:53 Mccreary % (Auto) 9.4 % 02/15/25 07:53 Eos % (Auto) 3.7 % 02/15/25 07:53 Baso % (Auto) 1.6 % 02/15/25 07:53 Neut # (Auto) 5.82 10^3/uL (1.8-7.7) 02/15/25 07:53 Lymph # (Auto) 1.8 10^3/uL (0.8-4.8) 02/15/25 07:53 Mccreary # (Auto) 0.8 10^3/uL (0.2-0.9) 02/15/25 07:53 Eos # (Auto) 0.3 10^3/uL (0.0-0.8) 02/15/25 07:53 Baso # (Auto) 0.1 10^3/uL (0.0-0.1) 02/15/25 07:53 Nucleated RBC % (auto) 0 % 02/15/25 07:53 Nucleated RBCs # 0.0 /100WBC 02/15/25 07:53 Sodium 139 mmol/L (136-145) 02/15/25 07:53 Potassium 5.0 mmol/L (3.5-5.1) 02/15/25 07:53 Chloride 102 mmol/L (98-107) 02/15/25 07:53 Carbon Dioxide 24 mmol/L (22-29) 02/15/25 07:53 Anion Gap 18.0 (5-19) 02/15/25 07:53 BUN 60 mg/dL (6-20) H 02/15/25 07:53 Creatinine 4.4 mg/dL (0.7-1.2) H 02/15/25 07:53 GFR Calculation 13.9 mL/min (90-130) L 02/15/25 07:53 Glucose 102 mg/dL (65-115) 02/15/25 07:53 Calculated Osmolality 305 mOsm/kg (285-295) H 02/15/25 07:53 Calcium 8.3 mg/dL (8.5-10.5) L 02/15/25 07:53 Total Bilirubin 0.2 mg/dL (0.15-1.2) 02/15/25 07:53 AST 17 U/L (0-40) 02/15/25 07:53 ALT 7 U/L (0-41) 02/15/25 07:53 Alkaline Phosphatase 78 U/L (40-130) 02/15/25 07:53 Total Protein 7.3 g/dL (6.6-8.7) 02/15/25 07:53 Albumin 3.7 g/dL (3.5-5.2) 02/15/25 07:53 Globulin 3.6 g/dL (1.3-4.6) 02/15/25 07:53 Hepatitis A IgM Ab Non-reactive (Nonreactive) 02/15/25 07:53 Hep Bs Antigen Non-reactive (Nonreactive) 02/15/25 07:53 Hep Bs Antibody < 3.5 (11.5-1000) L 02/15/25 07:53 Hep B Core Total Ab Non-reactive (Nonreactive) 02/15/25 07:53 Hepatitis C Antibody Non-reactive (Nonreactive) 02/15/25 07:53 No radiology studies performed this visit Discharge Plan Discharge Patient Disposition: Home Clinical Impression: End stage renal disease on dialysis (HFpEF) heart failure with preserved ejection fraction Qualifiers: Heart failure chronicity: acute on chronic Qualified Code(s): I50.33 - Acute on chronic diastolic (congestive) heart failure Condition: Stable Prescriptions: No Action pantoprazole 40 mg tablet,delayed release (DR/EC) 40 mg PO DAILY tamsulosin [Flomax] 0.4 mg capsule 0.4 mg PO DAILY Qty: 30 1RF divalproex [Depakote] 250 mg tablet,delayed release (DR/EC) 250 mg PO .7 pm Qty: 30 2RF glipizide 5 mg tablet extended release 24hr 5 mg PO DAILY Qty: 30 0RF aspirin 81 mg Tablet,Delayed Release (Dr/Ec) 81 mg PO DAILY Qty: 90 0RF atorvastatin 80 mg tablet 80 mg PO QPM albuterol sulfate 2.5 mg /3 mL (0.083 %) solution for nebulization 2.5 mg inhalation Q4H PRN (Reason: Shortness Of Breath) sodium bicarbonate 650 mg Tablet 650 mg PO TID 30 Days Qty: 90 1RF sevelamer carbonate 800 mg Tablet 800 mg PO TID 30 Days Qty: 90 1RF bumetanide 2 mg tablet 2 mg PO BIDAC Qty: 60 1RF losartan 50 mg Tablet 50 mg PO DAILY Qty: 30 0RF isosorbide mononitrate 30 mg Tablet Extended Release 24 Hr 30 mg PO DAILY 30 Days Qty: 30 0RF metoprolol tartrate 50 mg Tablet 50 mg PO BID@0900,2100 30 Days Qty: 60 0RF hydralazine 50 mg Tablet 75 mg PO TID 30 Days Qty: 135 0RF ezetimibe 10 mg tablet 10 mg PO DAILY Discharge Orders: Discharge ED (Routine); Ordered 02/15/25 Ordered By: Brian Escudero Referrals: Pierce Justice MD [Primary Care Provider] - Discharge Diet: As Directed Discharge Activity: Resume usual activity Patient Instructions: Opioid Safety, Pain Management Activity Restrictions/Additional Instructions: Thank you for choosing [facility] for your healthcare needs today. It is very important that you follow up as instructed or that you return to the Emergency Department should you have concerns or if your condition changes or worsens in any way. You were seen in the emergency room today for your dialysis. Recommend you continue to follow closely with your primary care doctor regarding your dialysis needs and your heart failure. Print Language: Kinyarwanda Coding Level of Care Code ED Floral Specialist for Sandro Foster
[2025-02-15 07:36] VITALS: BP 184/98; PULSE 72; RESP 17; TEMP 36.6; O2SAT 97; BMI 29.8
[2025-02-15 08:12] LABS: Basophils # 0.1 10^3/uL (0.0-0.1); Basophils % 1.6 %; Eosinophils # 0.3 10^3/uL (0.0-0.8); Eosinophils % 3.7 %; Hematocrit 32.4 % (37-53); Lymphocytes # 1.8 10^3/uL (0.8-4.8); Lymphocytes % 20.1 %; Mean Corpuscular HGB Conc 31.5 g/dL (30-55); Mean Corpuscular Hemoglobin 29.1 pg (27-33); Mean Corpuscular Volume 92.3 fl (82-101); Mean Platelet Volume 9.9 fL (7.4-10.4); Monocytes # 0.8 10^3/uL (0.2-0.9); Monocytes % 9.4 %; Neutrophils # 5.82 10^3/uL (1.8-7.7); Neutrophils % 64.9 %; Nucleated Red Blood Cells % 0 %; Platelet Count 272 10^3/cmm (157-399); Red Blood Count 3.51 10^6/uL (3.85-5.65); Red Cell Distribution Width 14.7 % (12.1-15.1); White Blood Count 8.96 10^3/uL (3.29-11.43)
[2025-02-15 08:29] LABS: Alanine Aminotransferase 7 U/L (0-41); Albumin Level 3.7 g/dL (3.5-5.2); Alkaline Phosphatase 78 U/L (40-130); Aspartate Amino Transferase 17 U/L (0-40); Blood Urea Nitrogen 60 mg/dL (6-20); Calcium 8.3 mg/dL (8.5-10.5); Carbon Dioxide 24 mmol/L (22-29); Chloride 102 mmol/L (98-107); Creatinine Clr Calc Pharmacy 18.5965; Globulin 3.6 g/dL (1.3-4.6); Glomerular Filtration Rate 13.9 mL/min (90-130); Glucose 102 mg/dL (65-115); Osmolality Calculated 305 mOsm/kg (285-295); Sodium 139 mmol/L (136-145); Total Bilirubin 0.2 mg/dL (0.15-1.2); Total Protein 7.3 g/dL (6.6-8.7)
--- NOTE | 2025-02-15 08:45 | P.PN_ITS ---
Subjective 2 Subjective: getting HD Medications: Reviewed: Yes Vitals/I&O/Wt Last Vital Signs Temp 97.8 F 02/15/25 07:36 Pulse 72 02/15/25 07:36 Resp 17 02/15/25 07:36 BP 184/98 02/15/25 07:36 Pulse Ox 97 02/15/25 07:36 O2 Del Method Room Air 02/15/25 07:36 Weight last 48 hrs Weight 83.915 kg Physical Exam 2 Narrative: The patient is comfortable in bed no apparent distress. Blood pressure noted. HEENT normocephalic atraumatic. Neck is supple. Lungs are clear. Heart is regular positive S1-S2. Abdomen is soft positive bowel sounds. Extremities have decreased edema. Neuro awake alert oriented x 3. Access right IJ permacath. Data 02/15/25 07:53 02/15/25 07:53 A&P Assessment and plan (1) End stage renal disease on dialysis: 60-year-old man hypertension diabetes heart failure preserved EF, ESRD. The patient does not yet have an outpatient dialysis unit and therefore has to go to emergency room as needed for dialysis. 1. ESRD - he is not accepted to an outpt unit. pt is doing well. plan for HD 2 times/week 2. Hypertension - monitor on dialysis. 3. anemia- Will hold Epogen as hgb kings to 10.6. ferritin - 485, % sat 28 - s/p IV iron 4. Patient on sevelamer and phosphorus is improving. Patient is doing well with dialysis. Patient was seen and examined using audiovisual equipment with the aid of a nurse. The patient consented to telehealth and to dialysis. Plan HD now, and monitor PDMP PDMP Reviewed: Not Reviewed Attestations 2 Medical Necessity Statement*: PER GOLDIE Coding Level of Care Code Acute Code for Chg Fwd Diagnoses End stage renal disease on dialysis N18.6; Z99.2
[2025-02-15] MEDS: heparin, porcine 1,000 unit/mL INJ 10 mL 1000 UNIT IV (09:00)
[2025-02-15 09:33] VITALS: BP 188/100; PULSE 77; RESP 18; TEMP 36.6
--- NOTE | 2025-02-15 09:44 | PC.HD ---
network planner reports that in-center facilities are concerned about accepting pt due to behavioral issues. Pt has always been polite and cooperative with HD staff, even while inpatient and other staff was reporting behavior issues. As outpatient, he has continued to be pleasant and cooperative with dialysis staff. When there have been delays in starting treatment he has remained pleasant and understanding. When he has felt unwell post treatment he has still remained pleasant and cooperative for dialysis staff. He appreciates being updated when there are delays, and is satisfied when his questions are answered.
[2025-02-15 09:47] LABS: Hepatitis A Antibody IgM Non-Reactive (Nonreactive); Hepatitis B Core AB, Total Non-Reactive (Nonreactive); Hepatitis B Surface AB < 3.5 (11.5-1000); Hepatitis B Surface Antigen Non-Reactive (Nonreactive); Hepatitis C Virus Antibody Non-Reactive (Nonreactive)
--- NOTE | 2025-02-15 10:43 | PC.SOCIAL ---
Referrals Updates sent to [facility] in [facility]. Spoke with Geovani, and he wants to review with [facility] nephrology to see why patient is being denied closer prior to giving an answer. Updates also sent to [facility] in [place], and [facility] in [place]. Attempted to reach [facility] in [place], they are experiencing a power outage and unable to connect with them. Will fax the referral to them today after notes are finalized since they have said they will review again on 02/18/[address] have referral available Tuesday morning.
[2025-02-15 12:57] VITALS: BP 180/95; PULSE 67; RESP 17; TEMP 36.8; O2SAT 97
[2025-02-15 15:08] VITALS: BP 156/82; PULSE 76; RESP 18; TEMP 36.6
--- NOTE | 2025-02-18 09:11 | PC.SOCIAL ---
[facility] Referral Referral faxed to [facility] at this time. CM had voicemail from Geovani at [facility] in [place] declining referral. RENETTA also had a voicemail from Lynne at [facility] in [place], [place], stating that her medical technologist hematology has reviewed and they can accept patient. CM will update patient and [facility] spinning machine operator of this information, and will work out a start date with Lynne. Her phone number is [phone].
== END 2025-02-15 12:59 | disposition home or self-care (01) ==
PROVIDERS: Hospitalist; Emergency Provider Family Medicine; PCP Family Medicine
DX: E11.22 Type 2 diabetes mellitus with diabetic chronic kidney disease (principal); I13.2 Hypertensive heart and chronic kidney disease with heart failure and with stage 5 chronic kidney disease, or end stage renal disease; I50.33 Acute on chronic diastolic (congestive) heart failure; N18.6 End stage renal disease; Z99.2 Dependence on renal dialysis; Z87.891 Personal history of nicotine dependence
CPT/HCPCS: 36415; 80053; 85025; 86705; 86706; 86709; 86803; 87340; 96374; 99285; J1644

== ENCOUNTER 2025-02-19 07:21 | Emergency (ER) | payer MEDICARE, MEDICAID, SELFPAY ==
[2024-12-26 13:42] VITALS: BMI 29.2
[2025-02-19 07:29] VITALS: BP 210/106; PULSE 73; RESP 18; TEMP 36.5; O2SAT 94
--- NOTE | 2025-02-19 07:29 | ED_ITS ---
HPI - General Adult General: Chief complaint: General Medical Stated complaint: dialysis Time Seen by Provider: 02/19/25 07:25 History of Present Illness: 60-year-old male with end-stage renal di cherelle presents emergency room for dialysis. He has not been able to make arrangements for outpatient dialysis. He has had problems with congestive heart failure in the past. No shortness of breath no chest pain or fever at this time. He has been able to stop the use of his oxygen on a regular basis since he has begun regular dialysis. He states he is feeling much better he is sleeping better. Associated symptoms: Deny chest pain or dyspnea Related Data Home Medications ?Medication ?Instructions ?Recorded ?Confirmed pantoprazole 40 mg tablet,delayed 40 mg PO DAILY 12/0602/19/25 release ezetimibe 10 mg tablet 10 mg PO DAILY 01/03/2501/30 albuterol sulfate 2.5 mg/3 mL 2.5 mg inhalation Q4H WI N 01/06/25 02/19/25 (0.083 %) solution for nebulization Shortness Of Breat h atorvastatin 80 mg tablet 80 mg PO QPM 01/06/25 Previous Rx's ?Medication ?Instructions ?Recorded aspirin 81 mg tablet,delayed 81 mg PO DAILY #90 tabs 1 12/07/23 release divalproex 250 mg tablet,delayed 250 mg PO .7 pm #30 t abs 11/26/24 release (Depakote) bumetanide 2 mg tablet 2 mg PO BIDAC #60 tabs 01/13 sevelamer carbonate 800 mg tablet 800 mg PO TID 30 day s #90 tabs 01/13/25 sodium bicarbonate 650 mg tablet 650 mg PO TID 30 days #90 tabs 01/13/25 tamsulosin 0.4 mg capsule (Flomax) 0.4 mg PO DAILY #30 caps 01/14/25 hydralazine 50 mg tablet 75 mg (1.5 x 50 mg) PO TID 3 0 days 01/30/25 #135 tabs isosorbide mononitrate 30 mg 30 mg PO DAILY 30 days #3 0 tabs 01/30/25 tablet,extended release 24 hr losartan 50 mg tablet 50 mg PO DAILY #30 tabs 0412/25 metoprolol tartrate 50 mg tablet 50 mg PO BID@0900,210 0 30 days #60 01/30/25 tabs glipizide 5 mg tablet, extended 5 mg PO DAILY #30 tabs 02/11/25 release 24 hr Allergies Allergy/AdvReac Type Severity Reaction Status Date / Time No Known Allergies Allergy Verified 01/15/25 04:45 Review of Systems Const: Denies: fever(s) or chills Card: Denies: chest pain Resp: Denies: dyspnea GI: Denies: abdominal pain PFSH ED PFSH: Medical History Anemia Bipolar II disorder Essential hypertension Volume overload Type 2 diabetes mellitus Glomerulosclerosis Renal biopsy: Pathology: Nodular diabetic glomerulosclerosis class III, ATN. (HFpEF) heart failure with preserved eje ction fraction Poor compliance with medication CKD (chronic kidney disease), stage V Influenza Acute on chronic renal failure Acute hypoxemic respiratory failure Community acquired pneumonia HALIE (acute kidney injury) Non-STEMI (non-ST elevated myocardial infarction) Hyperglycemia Hammertoe of right foot Callus of heel Blurred vision CKD (chronic kidney disease) stage V requiring chronic dialysis Nicotine dependence, cigarettes, uncomplicated Bereavement Mother in February 2024 Cannabis use disorder, moderate, dependence Chronic post-traumatic stress disorder Impaired visual perception Psychiatric care 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 Social History Smoking and tobacco/nicotine status: former use of tobacco/nicotine Alcohol intake: former Adopted: No Caregiver/support person: No Lives independently: Yes Household members: none Housing: Apartment Marital status: Number of children: 1 Highest education level completed: High School Graduate service: No Current occupational status: disabled Current occupational exposures/hazards: No Pets and animals: Yes Pets & animals: cat(s) and dog(s) Leisure activites: other Leisure activities details: play music Sexually active: No Do you think of yourself as: Straight/Heterosexual Current gender identity: Male Carmita/Sikh: Mandaeism Special carmita needs: No Agree to transfusion: Yes Physical Exam Const: COMMON NORMALS: no acute distress GENERAL APPEARANCE: cooperative and comfortable ORIENTATION/CONSCIOUSNESS: Yes awake, Yes oriented to person, Yes oriented to place and Yes oriented to time HENMT: COMMON NORMALS: normocephalic, atraumatic and hearing grossly normal bilaterally HEAD & SCALP: normocephalic and atraumatic Resp: COMMON NORMALS: normal respiratory effort, No retractions, No use of accessory muscles and clear to auscultation bilaterally AUSCULTATION: clear to auscultation bilaterally Cardio: COMMON NORMALS: regular rate, regular rhythm and No murmurs present (Cardio) RATE: regular rate RHYTHM: regular rhythm GI: COMMON NORMALS: Soft to palpation and No hepatosplenomegaly present AUSCULTATION: Yes normoactive bowel sounds PALPATION: Yes Soft to palpation, No Tenderness to palpation present (GI), No Guarding due to palpation present (GI) and Yes No hepatosplenomegaly present Extremity: COMMON NORMALS: normal to inspection, capillary refill normal, no clubbing, cyanosis or edema, no calf tenderness and no pedal edema Neuro: SENSORIUM/ORIENTATION: Yes oriented to person, Yes oriented to place and Yes oriented to time Skin: COMMON NORMALS: no rashes or lesions noted GENERAL SKIN EXAM: no rashes or lesions noted Course Vital Signs: Vital signs: Vital Signs Temperature 98.6 F 02/19/25 11:53 Pulse Rate 71 02/19/25 12:31 Respiratory Rate 19 H 02/19/25 12:31 Blood Pressure 156/76 02/19/25 12:31 Pulse Oximetry 96 02/19/25 12:[address] [facility] - General Adult Medical Decision Making Mr. Baker had difficulty establishing with the dialysis clinic because of some behavioral issues when he was initially seen several times at this facility and other facilities. The last several visits to the emergency room where he is receiving emergent dialysis he has been very pleasant and cordial. It appears since he has been able to sleep better off of his oxygen not having the degree of orthopnea he did previously he feels much better. His frustration with his overall health is much decreased he has been courteous and appreciative to the staff. He is not had any confrontational issues the last several visits. And seen patient several times previously. He is much more adjusted and tolerating his medical conditions with far less frustration than he has in the past. We have asked medical social worker to reach out again to try to get him established at one of the local dialysis clinic No radiology studies performed this visit Discharge Plan Discharge Patient Disposition: Home Clinical Impression: End stage renal disease on dialysis (HFpEF) heart failure with preserved ejection fraction Qualifiers: Heart failure chronicity: acute on chronic Qualified Code(s): I50.33 - Acute on chronic diastolic (congestive) heart failure Condition: Stable Prescriptions: No Action pantoprazole 40 mg tablet,delayed release (DR/EC) 40 mg PO DAILY tamsulosin [Flomax] 0.4 mg capsule 0.4 mg PO DAILY Qty: 30 1RF divalproex [Depakote] 250 mg tablet,delayed release (DR/EC) 250 mg PO .7 pm Qty: 30 2RF glipizide 5 mg tablet extended release 24hr 5 mg PO DAILY Qty: 30 0RF aspirin 81 mg Tablet,Delayed Release (Dr/Ec) 81 mg PO DAILY Qty: 90 0RF atorvastatin 80 mg tablet 80 mg PO QPM albuterol sulfate 2.5 mg /3 mL (0.083 %) solution for nebulization 2.5 mg inhalation Q4H PRN (Reason: Shortness Of Breath) sodium bicarbonate 650 mg Tablet 650 mg PO TID 30 Days Qty: 90 1RF sevelamer carbonate 800 mg Tablet 800 mg PO TID 30 Days Qty: 90 1RF bumetanide 2 mg tablet 2 mg PO BIDAC Qty: 60 1RF losartan 50 mg Tablet 50 mg PO DAILY Qty: 30 0RF isosorbide mononitrate 30 mg Tablet Extended Release 24 Hr 30 mg PO DAILY 30 Days Qty: 30 0RF metoprolol tartrate 50 mg Tablet 50 mg PO BID@0900,2100 30 Days Qty: 60 0RF hydralazine 50 mg Tablet 75 mg PO TID 30 Days Qty: 135 0RF ezetimibe 10 mg tablet 10 mg PO DAILY Discharge Orders: Discharge ED (Routine); Ordered 02/19/25 Ordered By: Brian Escudero Referrals: Pierce Justice MD [Primary Care Provider] - Discharge Diet: Usual diet Discharge Activity: Resume usual activity Patient Instructions: Opioid Safety, Pain Management Activity Restrictions/Additional Instructions: [facility] you [facility] healthcare needs today. It is very important that you follow up as instructed or that you return to the Emergency Department should you have concerns or if your condition changes or worsens in any way. You were seen in the emergency room for emergent dialysis. Continue to follow- up with your primary care doctor or interventional radiology tech. Print Language: Greenlandic Coding Level of Care Code ED Hot Car Charger for Sandro Foster
[2025-02-19 08:47] VITALS: BP 215/115; PULSE 82; RESP 14; TEMP 36.8
--- NOTE | 2025-02-19 09:38 | PC.HD ---
Patient Conduct: Patient has been pleasant, respectful and cooperative each time this RN has had an encounter with him. Over the past several dialysis sessions patient has expressed interest in learning more about his disease process/access/medications. Patient is amenable to education from RN. Patient has remained calm during unforseen delays in initiating his treatment, and normally dozes off during his dialysis.
--- NOTE | 2025-02-19 10:07 | P.PN_ITS ---
Subjective Subjective: getting HD Medications: Reviewed: Yes Vitals/I&O/Wt Last Vital Signs Temp 98.2 F 02/19/25 08:47 Pulse 82 02/19/25 08:47 Resp 14 02/19/25 08:47 BP 215/115 02/19/25 08:47 Pulse Ox 94 02/19/25 07:29 Weight last 48 hrs Weight 72.121 kg Physical Exam Narrative: The patient is comfortable in bed no apparent distress. Blood pressure noted. HEENT normocephalic atraumatic. Neck is supple. Lungs are clear. Heart is regular positive S1-S2. Abdomen is soft positive bowel sounds. Extremities have decreased edema. Neuro awake alert oriented x 3. Access right IJ permacath. A&P Assessment and plan (1) End stage renal disease on dialysis: 60-year-old man hypertension diabetes heart failure preserved EF, ESRD. The patient does not yet have an outpatient dialysis unit and therefore has to go to emergency room as needed for dialysis. 1. ESRD - he is not accepted to an outpt unit. pt is doing well. plan for HD 2 times/week 2. Hypertension - monitor on dialysis. 3. anemia- Will hold Epogen as hgb kings to 10.6. ferritin - 485, % sat 28 - s/p IV iron 4. Patient on sevelamer and phosphorus is improving. Patient is doing well with dialysis. Patient was seen and examined using audiovisual equipment with the aid of a nurse. The patient consented to telehealth and to dialysis. Plan HD now, and monitor PDMP PDMP Reviewed: Not Reviewed Attestations Medical Necessity Statement*: per medicine Coding Level of Care Code Acute Code for Chg Fwd Diagnoses End stage renal disease on dialysis N18.6; Z99.2
[2025-02-19] MEDS: epoetin alfa-epbx 10,000 unit/ml SDV (ESRD) 10000 UNIT SUBCUT (11:32)
[2025-02-19 11:53] VITALS: BP 175/90; PULSE 74; RESP 16; TEMP 37
[2025-02-19 12:31] VITALS: BP 156/76; PULSE 71; RESP 19; O2SAT 96
== END 2025-02-19 12:29 | disposition home or self-care (01) ==
PROVIDERS: Emergency Provider Family Medicine; PCP Family Medicine
DX: E11.22 Type 2 diabetes mellitus with diabetic chronic kidney disease (principal); I13.2 Hypertensive heart and chronic kidney disease with heart failure and with stage 5 chronic kidney disease, or end stage renal disease; I50.33 Acute on chronic diastolic (congestive) heart failure; N18.5 Chronic kidney disease, stage 5; Z99.2 Dependence on renal dialysis; Z87.891 Personal history of nicotine dependence; Z79.82 Long term (current) use of aspirin
CPT/HCPCS: 99284; Q5105

== ENCOUNTER 2025-02-26 07:27 | Emergency (ER) | payer MEDICARE, MEDICAID, SELFPAY ==
[2024-12-26 13:42] VITALS: BMI 29.2
--- NOTE | 2025-02-26 07:28 | W.ED.GENADLT ---
HPI - General Adult General: Chief complaint: General Medical Stated complaint: dialysis Time Seen by Provider: 02/26/25 07:28 History of Present Illness: 60-year-old male with end-stage renal disease presents emergency room for dialysis. He has not been able to make arrangements for outpatient dialysis. He has had problems with congestive heart failure in the past. Pt missed his dialysis and has increased swelling and a little more dyspnea with exertion the last couple of days. Pt reports feeling significant weakness immediately after dialysis. Patient states a large bowel movement with a lot of abdominal pain and cramping and significant reflux. He is on pantoprazole and has been taking regularly addition that he uses sodium bicarbonate as needed. He denies any chest pain. Associated symptoms: Reports dyspnea; Deny chest pain Related Data Home Medications ?Medication ?Instructions ?Recorded ?Confirmed pantoprazole 40 mg tablet,delayed 40 mg PO DAILY 12/06/24 02/26/25 release ezetimibe 10 mg tablet 10 mg PO DAILY 01/03/25 02/26/25 albuterol sulfate 2.5 mg/3 mL 2.5 mg inhalation Q4H PRN 01/06/25 02/26/25 (0.083 %) solution for nebulization Shortness Of Breath atorvastatin 80 mg tablet 80 mg PO QPM 01/06/25 02/26/25 carvedilol 6.25 mg tablet 6.25 mg PO BID 02/26/25 02/26/25 nifedipine 30 mg tablet,extended 30 mg PO QPM 02/26/25 02/26/25 release 24 hr Previous Rx's ?Medication ?Instructions ?Recorded aspirin 81 mg tablet,delayed 81 mg PO DAILY #90 tabs 10/06/24 release divalproex 250 mg tablet,delayed 250 mg PO .7 pm #30 tabs 11/26/24 release (Depakote) bumetanide 2 mg tablet 2 mg PO BIDAC #60 tabs 01/13/25 sevelamer carbonate 800 mg tablet 800 mg PO TID 30 days #90 tabs 01/13/25 sodium bicarbonate 650 mg tablet 650 mg PO TID 30 days #90 tabs 01/13/25 tamsulosin 0.4 mg capsule (Flomax) 0.4 mg PO DAILY #30 caps 01/14/25 hydralazine 50 mg tablet 75 mg (1.5 x 50 mg) PO TID 30 days 01/30/25 #135 tabs isosorbide mononitrate 30 mg 30 mg PO DAILY 30 days #30 tabs 01/30/25 tablet,extended release 24 hr losartan 50 mg tablet 50 mg PO DAILY #30 tabs 01/30/25 metoprolol tartrate 50 mg tablet 50 mg PO BID@0900,2100 30 days #60 01/30/25 tabs glipizide 5 mg tablet, extended 5 mg PO DAILY #30 tabs 02/11/25 release 24 hr Allergies Allergy/AdvReac Type Severity Reaction Status Date / Time No Known Allergies Allergy Verified 01/15/25 04:45 Review of Systems Const: Denies: fever(s) or chills Card: Reports: edema, swelling of feet/ankles and dyspnea on exertion; Denies: chest pain Resp: Reports: dyspnea GI: Denies: abdominal pain PFSH ED PFSH: Medical History Anemia Bipolar II disorder Essential hypertension Volume overload Type 2 diabetes mellitus Glomerulosclerosis Renal biopsy: Pathology: Nodular diabetic glomerulosclerosis class III, ATN. (HFpEF) heart failure with preserved ejection fraction Poor compliance with medication CKD (chronic kidney disease), stage V Influenza Acute on chronic renal failure Acute hypoxemic respiratory failure Community acquired pneumonia HALIE (acute kidney injury) Non-STEMI (non-ST elevated myocardial infarction) Hyperglycemia Hammertoe of right foot Callus of heel Blurred vision CKD (chronic kidney disease) stage V requiring chronic dialysis Nicotine dependence, cigarettes, uncomplicated Bereavement Mother in February 2024 Cannabis use disorder, moderate, dependence Chronic post-traumatic stress disorder Impaired visual perception Psychiatric care 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 Social History Smoking and tobacco/nicotine status: former use of tobacco/nicotine Alcohol intake: former Adopted: No Caregiver/support person: No Lives independently: Yes Household members: none Housing: Apartment Marital status: Number of children: 1 Highest education level completed: High School Graduate service: No Current occupational status: disabled Current occupational exposures/hazards: No Pets and animals: Yes Pets & animals: cat(s) and dog(s) Leisure activites: other Leisure activities details: play music Sexually active: No Do you think of yourself as: Straight/Heterosexual Current gender identity: Male Carmita/Advent: Anglican Special carmita needs: No Agree to transfusion: Yes Physical Exam Const: GENERAL APPEARANCE: cooperative ORIENTATION/CONSCIOUSNESS: Yes awake, Yes oriented to person, Yes oriented to place and Yes oriented to time HENMT: COMMON NORMALS: normocephalic, atraumatic and hearing grossly normal bilaterally HEAD & SCALP: normocephalic and atraumatic Resp: COMMON NORMALS: normal respiratory effort, No retractions and No use of accessory muscles AUSCULTATION: crackles Laterality: bilateral and posterior Cardio: COMMON NORMALS: regular rate, regular rhythm and No murmurs present (Cardio) RATE: regular rate RHYTHM: regular rhythm GI: COMMON NORMALS: Soft to palpation and No hepatosplenomegaly present AUSCULTATION: Yes normoactive bowel sounds PALPATION: Yes Soft to palpation, No Tenderness to palpation present (GI), No Guarding due to palpation present (GI) and Yes No hepatosplenomegaly present Extremity: COMMON NORMALS: normal to inspection, capillary refill normal and no calf tenderness OTHER: 2+ edema lower extremities Neuro: SENSORIUM/ORIENTATION: Yes oriented to person, Yes oriented to place and Yes oriented to time Skin: COMMON NORMALS: no rashes or lesions noted GENERAL SKIN EXAM: no rashes or lesions noted Course Vital Signs: Vital signs: Vital Signs Temperature 100.2 F H 02/26/25 11:23 Pulse Rate 78 02/26/25 11:23 Respiratory Rate 18 02/26/25 11:23 Blood Pressure 164/93 02/26/25 11:23 Pulse Oximetry 93 02/26/25 07:33 Oxygen Delivery Me thod Room Air 02/26/25 07:33 MDM - General Adult Medical Decision Making Dialysis completed Allison increase his pantoprazole to 40 twice daily for 10 days then 40 daily. Continue to follow-up with his primary care doctor Lab Data 02/26/25 07:52 02/26/25 07:52 Laboratory Results WBC 7.63 10^3/uL (3.29-11.43) 02/26/25 07:52 RBC 2.79 10^6/uL (3.85-5.65) L 02/26/25 07:52 Hgb 8.00 g/dL (11.27-16.99) L 02/26/25 07:52 Hct 26.0 % (37-53) L 02/26/25 07:52 MCV 93.2 fl (82-101) 02/26/25 07:52 MCH 28.7 pg (27-33) 02/26/25 07:52 MCHC 30.8 g/dL (30-55) 02/26/25 07:52 RDW 15.3 % (12.1-15.1) H 02/26/25 07:52 Plt Count 201 10^3/cmm (157-399) 02/26/25 07:52 MPV 9.6 fL (7.4-10.4) 02/26/25 07:52 Neut % (Auto) 67.3 % 02/26/25 07:52 Lymph % (Auto) 20.1 % 02/26/25 07:52 Douglas % (Auto) 8.5 % 02/26/25 07:52 Eos % (Auto) 2.8 % 02/26/25 07:52 Baso % (Auto) 0.9 % 02/26/25 07:52 Neut # (Auto) 5.14 10^3/uL (1.8-7.7) 02/26/25 07:52 Lymph # (Auto) 1.5 10^3/uL (0.8-4.8) 02/26/25 07:52 Douglas # (Auto) 0.7 10^3/uL (0.2-0.9) 02/26/25 07:52 Eos # (Auto) 0.2 10^3/uL (0.0-0.8) 02/26/25 07:52 Baso # (Auto) 0.1 10^3/uL (0.0-0.1) 02/26/25 07:52 Nucleated RBC % (auto) 0 % 02/26/25 07:52 Nucleated RBCs # 0.0 /100WBC 02/26/25 07:52 Sodium 137 mmol/L (136-145) 02/26/25 07:52 Potassium 4.7 mmol/L (3.5-5.1) 02/26/25 07:52 Chloride 99 mmol/L (98-107) 02/26/25 07:52 Carbon Dioxide 26 mmol/L (22-29) 02/26/25 07:52 Anion Gap 16.7 (5-19) 02/26/25 07:52 BUN 63 mg/dL (6-20) H 02/26/25 07:52 Creatinine 5.4 mg/dL (0.7-1.2) H 02/26/25 07:52 GFR Calculation 11.0 mL/min (90-130) L 02/26/25 07:52 Glucose 144 mg/dL (65-115) H 02/26/25 07:52 Calculated Osmolality 305 mOsm/kg (285-295) H 02/26/25 07:52 Calcium 7.6 mg/dL (8.5-10.5) L 02/26/25 07:52 Phosphorus 5.1 mg/dL (2.5-4.5) H 02/26/25 07:52 Magnesium 2.1 mg/dL (1.7-2.3) 02/26/25 07:52 Total Bilirubin 0.2 mg/dL (0.15-1.2) 02/26/25 07:52 AST 10 U/L (0-40) 02/26/25 07:52 ALT < 5 U/L (0-41) 02/26/25 07:52 Alkaline Phosphatase 74 U/L (40-130) 02/26/25 07:52 Total Protein 7.0 g/dL (6.6-8.7) 02/26/25 07:52 Albumin 3.6 g/dL (3.5-5.2) 02/26/25 07:52 Globulin 3.4 g/dL (1.3-4.6) 02/26/25 07:52 No radiology studies performed this visit Discharge Plan Discharge Patient Disposition: Home Clinical Impression: End-stage renal disease (ESRD), GERD (gastroesophageal reflux disease) (HFpEF) heart failure with preserved ejection fraction Qualifiers: Heart failure chronicity: acute on chronic Qualified Code(s): I50.33 - Acute on chronic diastolic (congestive) heart failure Condition: Stable Prescriptions: No Action pantoprazole 40 mg tablet,delayed release (DR/EC) 40 mg PO DAILY tamsulosin [Flomax] 0.4 mg capsule 0.4 mg PO DAILY Qty: 30 1RF divalproex [Depakote] 250 mg tablet,delayed release (DR/EC) 250 mg PO .7 pm Qty: 30 2RF glipizide 5 mg tablet extended release 24hr 5 mg PO DAILY Qty: 30 0RF aspirin 81 mg Tablet,Delayed Release (Dr/Ec) 81 mg PO DAILY Qty: 90 0RF atorvastatin 80 mg tablet 80 mg PO QPM albuterol sulfate 2.5 mg /3 mL (0.083 %) solution for nebulization 2.5 mg inhalation Q4H PRN (Reason: Shortness Of Breath) sodium bicarbonate 650 mg Tablet 650 mg PO TID 30 Days Qty: 90 1RF sevelamer carbonate 800 mg Tablet 800 mg PO TID 30 Days Qty: 90 1RF bumetanide 2 mg tablet 2 mg PO BIDAC Qty: 60 1RF losartan 50 mg Tablet 50 mg PO DAILY Qty: 30 0RF isosorbide mononitrate 30 mg Tablet Extended Release 24 Hr 30 mg PO DAILY 30 Days Qty: 30 0RF metoprolol tartrate 50 mg Tablet 50 mg PO BID@0900,2100 30 Days Qty: 60 0RF hydralazine 50 mg Tablet 75 mg PO TID 30 Days Qty: 135 0RF nifedipine 30 mg tablet extended release 24hr 30 mg PO QPM carvedilol 6.25 mg tablet 6.25 mg PO BID ezetimibe 10 mg tablet 10 mg PO DAILY Discharge Orders: Discharge ED (Routine); Ordered 02/26/25 Ordered By: Brian Escudero Referrals: Pierce Justice MD [Primary Care Provider] - Patient Instructions: Opioid Safety, Pain Management Activity Restrictions/Additional Instructions: Thank you for choosing [facility] for your healthcare needs today. It is very important that you follow up as instructed or that you return to the Emergency Department should you have concerns or if your condition changes or worsens in any way. You were seen in the emergency room for dialysis today. You had mentioned you had significant reflux problems worsening recently recommend for the next 10 days increasing your pantoprazole to 40 mg twice a day then resume 40 mg once daily follow-up with your primary care doctor. Print Language: Luxembourgish Coding Level of Care Code ED Sales And Merchandising Representative for Sandro Foster
[2025-02-26 07:33] VITALS: BP 175/97; PULSE 71; RESP 16; TEMP 36.4; O2SAT 93
[2025-02-26 07:58] LABS: Basophils # 0.1 10^3/uL (0.0-0.1); Basophils % 0.9 %; Eosinophils # 0.2 10^3/uL (0.0-0.8); Eosinophils % 2.8 %; Lymphocytes # 1.5 10^3/uL (0.8-4.8); Lymphocytes % 20.1 %; Mean Corpuscular HGB Conc 30.8 g/dL (30-55); Mean Corpuscular Hemoglobin 28.7 pg (27-33); Mean Corpuscular Volume 93.2 fl (82-101); Mean Platelet Volume 9.6 fL (7.4-10.4); Monocytes # 0.7 10^3/uL (0.2-0.9); Monocytes % 8.5 %; Neutrophils # 5.14 10^3/uL (1.8-7.7); Neutrophils % 67.3 %; Nucleated Red Blood Cells % 0 %; Platelet Count 201 10^3/cmm (157-399); Red Blood Count 2.79 10^6/uL (3.85-5.65); Red Cell Distribution Width 15.3 % (12.1-15.1); White Blood Count 7.63 10^3/uL (3.29-11.43)
[2025-02-26 08:18] LABS: Alanine Aminotransferase < 5 U/L (0-41); Albumin Level 3.6 g/dL (3.5-5.2); Alkaline Phosphatase 74 U/L (40-130); Anion Gap 16.7 (5-19); Aspartate Amino Transferase 10 U/L (0-40); Blood Urea Nitrogen 63 mg/dL (6-20); Calcium 7.6 mg/dL (8.5-10.5); Carbon Dioxide 26 mmol/L (22-29); Chloride 99 mmol/L (98-107); Creatinine Clr Calc Pharmacy 14.5787; Globulin 3.4 g/dL (1.3-4.6); Glucose 144 mg/dL (65-115); Magnesium 2.1 mg/dL (1.7-2.3); Osmolality Calculated 305 mOsm/kg (285-295); Phosphorus 5.1 mg/dL (2.5-4.5); Potassium 4.7 mmol/L (3.5-5.1); Sodium 137 mmol/L (136-145); Total Bilirubin 0.2 mg/dL (0.15-1.2)
--- NOTE | 2025-02-26 09:38 | P.PN_ITS ---
Subjective 2 Subjective: pt presented for HD Medications: Reviewed: Yes Vitals/I&O/Wt Last Vital Signs Temp 97.6 F 02/26/25 07:33 Pulse 71 02/26/25 07:33 Resp 16 02/26/25 07:33 BP 175/97 02/26/25 07:33 Pulse Ox 93 02/26/25 07:33 O2 Del Method Room Air 02/26/25 07:33 Weight last 48 hrs Weight 77.111 kg Physical Exam 2 Narrative: The patient is comfortable in bed no apparent distress. Blood pressure noted. HEENT normocephalic atraumatic. Neck is supple. Lungs are clear. Heart is regular positive S1-S2. Abdomen is soft positive bowel sounds. Extremities have decreased edema. Neuro awake alert oriented x 3. Access right IJ permacath. Data 02/26/25 07:52 02/26/25 07:52 A&P Assessment and plan (1) End stage renal disease on dialysis: 60-year-old man hypertension diabetes heart failure preserved EF, ESRD. The patient does not yet have an outpatient dialysis unit and therefore has to go to emergency room as needed for dialysis. 1. ESRD - he is not accepted to an outpt unit. pt is doing well. plan for HD 2 times/week 2. Hypertension - monitor on dialysis. 3. anemia- will order YANCY 4. Patient on sevelamer and phosphorus is improving. Patient is doing well with dialysis. Patient was seen and examined using audiovisual equipment with the aid of a nurse. The patient consented to telehealth and to dialysis. Plan HD now, and monitor PDMP PDMP Reviewed: Not Reviewed Attestations 2 Medical Necessity Statement*: per albaro Coding Level of Care Code Acute Code for Chg Fwd Diagnoses End stage renal disease on dialysis N18.6; Z99.2
[2025-02-26] MEDS: heparin, porcine 1,000 unit/mL INJ 10 mL 1000 UNIT IV (11:13)
[2025-02-26 11:23] VITALS: BP 164/93; PULSE 78; RESP 18; TEMP 37.9
[2025-02-26 20:08] VITALS: BP 188/100; PULSE 75; RESP 18; TEMP 37.8
== END 2025-02-26 13:08 | disposition home or self-care (01) ==
PROVIDERS: Emergency Provider Family Medicine; PCP Family Medicine
DX: E11.22 Type 2 diabetes mellitus with diabetic chronic kidney disease (principal); I13.2 Hypertensive heart and chronic kidney disease with heart failure and with stage 5 chronic kidney disease, or end stage renal disease; I50.33 Acute on chronic diastolic (congestive) heart failure; N18.6 End stage renal disease; Z99.2 Dependence on renal dialysis; Z79.82 Long term (current) use of aspirin; Z87.891 Personal history of nicotine dependence; K21.9 Gastro-esophageal reflux disease without esophagitis
CPT/HCPCS: 36415; 80053; 83735; 84100; 85025; 99283; J1642; J1644

== ENCOUNTER 2025-03-01 07:36 | Emergency (ER) | payer MEDICARE, MEDICAID, SELFPAY ==
[2024-12-26 13:42] VITALS: BMI 29.2
--- NOTE | 2025-03-01 07:46 | ED_ITS ---
HPI - General Adult 2 General: Chief complaint: General Medical Stated complaint: dialysis Time Seen by Provider: 03/01/25 07:43 Source: patient Mode of arrival: ambulatory Limitations: no limitations History of Present Illness: 60-year-old male is here for dialysis he receives dialysis Tuesday. He has no medical complaints at this time. Associated symptoms: Deny chest pain, dyspnea, headache(s), nausea, rash or vomiting Related Data Home Medications ?Medication ?Instructions ?Recorded ?Confirmed pantoprazole 40 mg tablet,delayed 40 mg PO DAILY 12/0603/01/25 release ezetimibe 10 mg tablet 10 mg PO DAILY 01/03/2512/25 albuterol sulfate 2.5 mg/3 mL 2.5 mg inhalation Q4H UT N 01/06/25 03/01/25 (0.083 %) solution for nebulization Shortness Of Breat h carvedilol 6.25 mg tablet 6.25 mg PO BID 02/26/2512/25 nifedipine 30 mg tablet,extended 30 mg PO QPM 02/26/25 03/01/25 release 24 hr Previous Rx's ?Medication ?Instructions ?Recorded aspirin 81 mg tablet,delayed 81 mg PO DAILY #90 tabs 1 12/07/23 release divalproex 250 mg tablet,delayed 250 mg PO .7 pm #30 t abs 11/26/24 release (Depakote) bumetanide 2 mg tablet 2 mg PO BIDAC #60 tabs 01/13 sevelamer carbonate 800 mg tablet 800 mg PO TID 30 day s #90 tabs 01/13/25 sodium bicarbonate 650 mg tablet 650 mg PO TID 30 days #90 tabs 01/13/25 tamsulosin 0.4 mg capsule (Flomax) 0.4 mg PO DAILY #30 caps 01/14/25 losartan 50 mg tablet 50 mg PO DAILY #30 tabs 12/25 glipizide 5 mg tablet, extended 5 mg PO DAILY #30 tabs 02/11/25 release 24 hr Allergies Allergy/AdvReac Type Severity Reaction Status Date / Time No Known Allergies Allergy Verified 01/15/25 04:45 Review of Systems 2 Const: Denies: fever(s), chills, body aches or change in appetite ENMT: Denies: throat pain or dental pain Card: Denies: chest pain Resp: Denies: dyspnea GI: Denies: abdominal pain, nausea, vomiting or diarrhea Musc: Denies: neck pain or back pain Skin/Breast: Denies: rash Neuro: Denies: headache(s) PFSH ED 2 PFSH: Medical History Anemia Bipolar II disorder Essential hypertension Volume overload Type 2 diabetes mellitus Glomerulosclerosis Renal biopsy: Pathology: Nodular diabetic glomerulosclerosis class III, ATN. (HFpEF) heart failure with preserved eje ction fraction Poor compliance with medication CKD (chronic kidney disease), stage V Influenza Acute on chronic renal failure Acute hypoxemic respiratory failure Community acquired pneumonia HALIE (acute kidney injury) Non-STEMI (non-ST elevated myocardial infarction) Hyperglycemia Hammertoe of right foot Callus of heel Blurred vision CKD (chronic kidney disease) stage V requiring chronic dialysis Nicotine dependence, cigarettes, uncomplicated Bereavement Mother in February 2024 Cannabis use disorder, moderate, dependence Chronic post-traumatic stress disorder Impaired visual perception Psychiatric care 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 Social History Smoking and tobacco/nicotine status: former use of tobacco/nicotine Alcohol intake: former Adopted: No Caregiver/support person: No Lives independently: Yes Household members: none Housing: Apartment Marital status: Number of children: 1 Highest education level completed: High School Graduate service: No Current occupational status: disabled Current occupational exposures/hazards: No Pets and animals: Yes Pets & animals: cat(s) and dog(s) Leisure activites: other Leisure activities details: play music Sexually active: No Do you think of yourself as: Straight/Heterosexual Current gender identity: Male Carmita/Roman Catholic: Jainism Special carmita needs: No Agree to transfusion: Yes Physical Exam 2 Const: COMMON NORMALS: no acute distress, patient oriented x3 and healthy appearing HENMT: COMMON NORMALS: normocephalic and atraumatic HEAD & SCALP: n ormocephalic and atraumatic Eye: COMMON NORMALS: conjunctivae normal CONJUNCTIVA: Yes conjunctivae normal Neck/C-Spine: COMMON NORMALS: full ROM and supple Chest: COMMONS NORMALS: normal inspection of the chest Resp: COMMON NORMALS: normal respiratory effort Cardio: COMMON NORMALS: regular rate RATE: regular rate Extremity: COMMON NORMALS: normal to inspection and full ROM Neuro: COMMON NORMALS: patient oriented x3, moves all extremities and no focal motor deficits Psych: COMMON NORMALS: mental status grossly normal, Normal thought process present and cooperative THOUGHT PROCESS: Normal thought process present Skin: COMMON NORMALS: no rashes or lesions noted and no wounds GENERAL SKIN EXAM: no rashes or lesions noted Course 2 Vital Signs: Vital signs: Vital Signs Temperature 97.9 F 03/01/25 09:00 Pulse Rate 78 03/01/25 09:00 Respiratory Rate 16 03/01/25 09:00 Blood Pressure 148/81 03/01/25 09:00 Pulse Oximetry 93 03/01/25 07:48 Oxygen Delivery Me thod Room Air 03/01/25 07:48 MDM - General Adult Medical Decision Making Patient presents here with need for dialysis patient transferred to outpatient dialysis Medical Records I reviewed the patient's medical records. Lab Data I reviewed the patient's lab results. 03/01/25 08:57 03/01/25 08:57 Laboratory Results WBC 5.15 10^3/uL (3.29-11.43) 03/01/25 08:57 RBC 3.01 10^6/uL (3.85-5.65) L 03/01/25 08:57 Hgb 8.80 g/dL (11.27-16.99) L 03/01/25 08:57 Hct 28.1 % (37-53) L 03/01/25 08:57 MCV 93.4 fl (82-101) 03/01/25 08:57 MCH 29.2 pg (27-33) 03/01/25 08:57 MCHC 31.3 g/dL (30-55) 03/01/25 08:57 RDW 15.2 % (12.1-15.1) H 03/01/25 08:57 Plt Count 216 10^3/cmm (157-399) 03/01/25 08:57 MPV 9.7 fL (7.4-10.4) 03/01/25 08:57 Neut % (Auto) 60.3 % 03/01/25 08:57 Lymph % (Auto) 25.8 % 03/01/25 08:57 [place] % (Auto) 7.8 % 03/01/25 08:57 Eos % (Auto) 4.7 % 03/01/25 08:57 Baso % (Auto) 1.2 % 03/01/25 08:57 Neut # (Auto) 3.11 10^3/uL (1.8-7.7) 03/01/25 08:57 Lymph # (Auto) 1.3 10^3/uL (0.8-4.8) 03/01/25 08:57 [place] # (Auto) 0.4 10^3/uL (0.2-0.9) 03/01/25 08:57 Eos # (Auto) 0.2 10^3/uL (0.0-0.8) 03/01/25 08:57 Baso # (Auto) 0.1 10^3/uL (0.0-0.1) 03/01/25 08:57 Nucleated RBC % (auto) 0 % 03/01/25 08:57 Nucleated RBCs # 0.0 /100WBC 03/01/25 08:57 Sodium 137 mmol/L (136-145) 03/01/25 08:57 Potassium 4.3 mmol/L (3.5-5.1) 03/01/25 08:57 Chloride 99 mmol/L (98-107) 03/01/25 08:57 Carbon Dioxide 25 mmol/L (22-29) 03/01/25 08:57 Anion Gap 17.3 (5-19) 03/01/25 08:57 BUN 42 mg/dL (6-20) H 03/01/25 08:57 Creatinine 4.2 mg/dL (0.7-1.2) H 03/01/25 08:57 GFR Calculation 14.6 mL/min (90-130) L 03/01/25 08:57 Glucose 98 mg/dL (65-115) 03/01/25 08:57 Calculated Osmolality 294 mOsm/kg (285-295) 03/01/25 08:57 Calcium 8.1 mg/dL (8.5-10.5) L 03/01/25 08:57 Phosphorus 4.6 mg/dL (2.5-4.5) H 03/01/25 08:57 No radiology studies performed this visit Discharge Plan Discharge Patient Disposition: Home Clinical Impression: End-stage renal disease (ESRD) Condition: Stable Prescriptions: No Action pantoprazole 40 mg tablet,delayed release (DR/EC) 40 mg PO DAILY tamsulosin [Flomax] 0.4 mg capsule 0.4 mg PO DAILY Qty: 30 1RF divalproex [Depakote] 250 mg tablet,delayed release (DR/EC) 250 mg PO .7 pm Qty: 30 2RF glipizide 5 mg tablet extended release 24hr 5 mg PO DAILY Qty: 30 0RF aspirin 81 mg Tablet,Delayed Release (Dr/Ec) 81 mg PO DAILY Qty: 90 0RF albuterol sulfate 2.5 mg /3 mL (0.083 %) solution for nebulization 2.5 mg inhalation Q4H PRN (Reason: Shortness Of Breath) sodium bicarbonate 650 mg Tablet 650 mg PO TID 30 Days Qty: 90 1RF sevelamer carbonate 800 mg Tablet 800 mg PO TID 30 Days Qty: 90 1RF bumetanide 2 mg tablet 2 mg PO BIDAC Qty: 60 1RF losartan 50 mg Tablet 50 mg PO DAILY Qty: 30 0RF nifedipine 30 mg tablet extended release 24hr 30 mg PO QPM carvedilol 6.25 mg tablet 6.25 mg PO BID ezetimibe 10 mg tablet 10 mg PO DAILY Discharge Orders: Discharge ED (Routine); Ordered 03/01/25 Ordered By: Roxann Mac Referrals: Pierce Justice MD [Primary Care Provider, Family Practice] Print Language: Yi Coding Level of Care Code ED Wringer Operator for Sandro Foster
[2025-03-01 07:48] VITALS: BP 171/92; PULSE 72; RESP 16; TEMP 36.8; O2SAT 93
[2025-03-01 09:00] VITALS: BP 148/81; PULSE 78; RESP 16; TEMP 36.6
[2025-03-01 09:04] LABS: Basophils # 0.1 10^3/uL (0.0-0.1); Basophils % 1.2 %; Eosinophils # 0.2 10^3/uL (0.0-0.8); Eosinophils % 4.7 %; Hematocrit 28.1 % (37-53); Lymphocytes # 1.3 10^3/uL (0.8-4.8); Lymphocytes % 25.8 %; Mean Corpuscular HGB Conc 31.3 g/dL (30-55); Mean Corpuscular Hemoglobin 29.2 pg (27-33); Mean Corpuscular Volume 93.4 fl (82-101); Mean Platelet Volume 9.7 fL (7.4-10.4); Monocytes # 0.4 10^3/uL (0.2-0.9); Monocytes % 7.8 %; Neutrophils # 3.11 10^3/uL (1.8-7.7); Neutrophils % 60.3 %; Nucleated Red Blood Cells % 0 %; Platelet Count 216 10^3/cmm (157-399); Red Blood Count 3.01 10^6/uL (3.85-5.65); Red Cell Distribution Width 15.2 % (12.1-15.1); White Blood Count 5.15 10^3/uL (3.29-11.43)
--- NOTE | 2025-03-01 09:09 | P.PN_ITS ---
Subjective 2 Subjective: no new c/o Medications: Reviewed: Yes Vitals/I&O/Wt Last Vital Signs Temp 98.6 F 03/01/25 12:16 Pulse 75 03/01/25 12:16 Resp 16 03/01/25 12:16 BP 163/82 03/01/25 12:16 Pulse Ox 93 03/01/25 07:48 O2 Del Method Room Air 03/01/25 07:48 Weight last 48 hrs Weight 68.2 kg Weight 170 g Physical Exam 2 Narrative: The patient is comfortable in bed no apparent distress. Blood pressure noted. HEENT normocephalic atraumatic. Neck is supple. Lungs are clear. Heart is regular positive S1-S2. Abdomen is soft positive bowel sounds. Extremities have decreased edema. Neuro awake alert oriented x 3. Access right IJ permacath. Data 03/01/25 08:57 03/01/25 08:57 A&P Assessment and plan (1) End stage renal disease on dialysis: 60-year-old man hypertension diabetes heart failure preserved EF, ESRD. The patient does not yet have an outpatient dialysis unit and therefore has to go to emergency room as needed for dialysis. 1. ESRD - he is not accepted to an outpt unit. pt is doing well. plan for HD 2 times/week 2. Hypertension - monitor on dialysis. 3. anemia- will order YANCY 4. Patient on sevelamer and phosphorus is improving. Patient is doing well with dialysis. Patient was seen and examined using audiovisual equipment with the aid of a nurse. The patient consented to telehealth and to dialysis. Plan HD now, and monitor PDMP PDMP Reviewed: Not Reviewed Attestations 2 Medical Necessity Statement*: per albaro Coding Level of Care Code Acute Code for Chg Fwd Diagnoses End stage renal disease on dialysis N18.6; Z99.2
--- NOTE | 2025-03-01 09:16 | PC.HD ---
Upon assessment/discussion with patient, this RN believes the patient may be nearing/under his estimated dry weight. Patient has complained of feeling extremely ill after previous HD treatments, with diarrhea, n/v, and overall fatigue and malaise lasting days. Upon researching his weight trends, it was found that the patient's last post-HD weight was 77.2 kg. Upon arrival this morning, weight was 69.2 kg. Lungs were clear with minimal bilateral lower extremity edema. Dr. Tubbs was notified and this RN was instructed to lower patient's UF goal today. New UF goal is 1500 mL.
[2025-03-01 09:24] LABS: Anion Gap 17.3 (5-19); Blood Urea Nitrogen 42 mg/dL (6-20); Calcium 8.1 mg/dL (8.5-10.5); Carbon Dioxide 25 mmol/L (22-29); Chloride 99 mmol/L (98-107); Creatinine Clr Calc Pharmacy 0.0461; Glomerular Filtration Rate 14.6 mL/min (90-130); Glucose 98 mg/dL (65-115); Osmolality Calculated 294 mOsm/kg (285-295); Phosphorus 4.6 mg/dL (2.5-4.5); Potassium 4.3 mmol/L (3.5-5.1); Sodium 137 mmol/L (136-145)
[2025-03-01] MEDS: epoetin alfa-epbx 10,000 unit/ml SDV (ESRD) 10000 UNIT SUBCUT (11:23)
[2025-03-01 12:16] VITALS: BP 163/82; PULSE 75; RESP 16; TEMP 37
--- NOTE | 2025-03-01 12:17 | PC.HD ---
Patient calm, pleasant, cooperative. Rested quietly during treatment. Was amenable to receiving education regarding fluid restriction between treatment.
== END 2025-03-01 12:23 | disposition home or self-care (01) ==
PROVIDERS: Hospitalist; Emergency Provider Emergency Medicine; PCP Family Medicine
DX: E11.22 Type 2 diabetes mellitus with diabetic chronic kidney disease (principal); I13.2 Hypertensive heart and chronic kidney disease with heart failure and with stage 5 chronic kidney disease, or end stage renal disease; I50.30 Unspecified diastolic (congestive) heart failure; N18.6 End stage renal disease; Z99.2 Dependence on renal dialysis
CPT/HCPCS: 80048; 84100; 85025; 99283; Q5105